=== PATIENT | female | born 1935 | race Caucasian/White ===

== ENCOUNTER → 2017-06-08 | Outpatient (CLI) | payer MEDICARE, OTHER ==
--- NOTE | 2017-06-08 10:43 | Diagnostic Imaging Report ---
PROCEDURE: MRI lumbar spine. TECHNIQUE: Multiplanar, multisequence MRI of the lumbar spine was performed without contrast. INDICATION: Back pain, bilateral hip pain greater right, recently worsening in severity. COMPARISON: Exam compared with prior dated 05/30/2012. FINDINGS: Since the previous exam, posterior fusion with left unilateral pedicular screws and vertical marta at the L5-S1 level have been placed. Anterolisthesis of L5 with respect to S1 measures about 1 cm. There is some signal void artifacts adjacent to the facets which may reflect postoperative instrumentation. The L5-S1 endplates are somewhat irregular. There does appear to be an interbody device. Incorporation could not be confirmed. At the malaligned L5-S1 level, there are severe right and at least moderate left neural foraminal stenoses. Degenerative changes to the discs, endplates and facets at the L2-L3 level showed no change from the previous exam and result in a mild degree of canal and mild left greater than right neural foraminal stenoses. The remaining levels reveal no additional stenoses. No marrow edema, no acute bony abnormality and no fluid collection. IMPRESSION: 1. Interval posterior and interbody L5-S1 instrumentation with decreased disc space development of endplate irregularity and increased anterolisthesis. Changes and malalignment result in severe biforaminal stenosis. Consider CT as further evaluation as pseudoarthrosis at this level could not be excluded and at least some of the findings suggest that outcome. 2. Remaining findings unchanged from previous. Dictated by: Dictated on workstation # [id number]
== END ==
LOC: RAD 08:28
PROVIDERS: ATTEND Orthopaedic Surgery Orthopaedic Trauma
DX: M48.061 Spinal stenosis, lumbar region without neurogenic claudication (principal); M43.16 Spondylolisthesis, lumbar region; Z98.1 Arthrodesis status
CPT/HCPCS: 72148

== ENCOUNTER 2017-07-12 11:06 | Outpatient (RCR) | payer MEDICARE, OTHER | END 2017-09-10 | disposition home or self-care (01) | PROVIDERS: ATTEND Orthopaedic Surgery Orthopaedic Trauma | DX: M48.061 Spinal stenosis, lumbar region without neurogenic claudication (principal); Z98.1 Arthrodesis status ==

== ENCOUNTER 2017-11-06 07:09 | Day surgery (SDC) | payer MEDICARE, OTHER ==
[~2017-11-06] VITALS: Ht 162.6 cm; Wt 109.8 kg
[2017-11-06] VITALS (10 sets, daily range): BP systolic 106–140; BP diastolic 67–101
--- OUTSIDE RECORDS SUMMARY | 2017-11-06 07:14 | XMS REPORT | Clinical Summary ---
Author Author User, CARLOS Organization [facility] [place] Address Unknown Phone Unavailable Allergies, Adverse Reactions, Alerts Allergy Name Reaction Description Start Date Severity Status Provider ALEX Dizzness Critical Active Ling Benitez Conditions or Problems Problem Name Problem Code Onset Date Status Entry Date Provider Comment Standard Description Annotate HYPERTENSION, BENIGN ESSENTIAL, UNCONTROLLED 401.1 Active Ling Benitez Benign essential hypertension OBESITY 278.00 Resolved Ling Benitez Obesity, unspecified DEEP VENOUS THROMBOPHLEBITIS, RIGHT LEG, HX OF V12.52 Resolved Ling Benitez Personal history of thrombophlebitis HYPERCHOLESTEROLEMIA 272.0 Active Ling Benitez Pure hypercholesterolemia SEBACEOUS CYST 706.2 Resolved Ling Benitez Sebaceous cyst right back of neck SKIN LESIONS, MULTIPLE 709.9 Resolved Ling Benitez Unspecified disorder of skin and subcutaneous tissue SKIN LESION 709.9 Resolved iLng Benitez Unspecified disorder of skin and subcutaneous tissue ACNE VULGARIS, FACIAL 706.1 Resolved Ling Benitez Other acne WELL WOMAN V70.0 Resolved Ling Benitez Routine general medical examination at a health care facility ACNE ROSACEA 695.3 Resolved Ling Benitez Rosacea CARCINOMA, BASAL CELL, SKIN 232.9 Resolved Ling Benitez Carcinoma in situ of skin, site unspecified ACTINIC KERATOSIS 702.0 Resolved Ling Benitez Actinic keratosis NEOPLASM, SKIN 239.2 Resolved Ling Benitez Neoplasm of unspecified nature of bone, soft tissue, and skin BACK PAIN 724.5 Resolved Ling Benitez Backache, unspecified SPINAL STENOSIS, LUMBAR 724.02 Resolved Ling Benitez Spinal stenosis of lumbar region without neurogenic claudication NEOPLASM, SKIN, UNCERTAIN BEHAVIOR 238.2 Resolved Ling Benitez Neoplasm of uncertain behavior of skin ABSCESS, SKIN 682.9 Resolved Ling Benitez Cellulitis and abscess of unspecified sites RECTAL POLYPS 569.0 Active Ling Benitez Anal and rectal polyp SCREENING MAMMOGRAM NEC V76.12 Resolved Ling Benitez Other screening mammogram SCREENING FOR OSTEOPOROSIS V82.81 Resolved Ling Benitez Screening for osteoporosis HERPES ZOSTER, UNCOMPLICATED 053.9 Resolved Ling Benitez Herpes zoster without mention of complication HIP PAIN 719.45 Resolved Ling Benitez Pain in joint involving pelvic region and thigh right RENAL INSUFFICIENCY 593.9 Active Ling Benitez Unspecified disorder of kidney and ureter URI 465.9 Resolved Ling Benitez Acute upper respiratory infections of unspecified site VACCINE AGAINST STREPTOCOCCUS PNEUMONIAE V03.82 Resolved Ling Benitez Need for prophylactic vaccination against Streptococcus pneumoniae [pneumococcus] OSTEOPENIA 733.90 Resolved Ling Benitez Disorder of bone and cartilage, unspecified HYPERGLYCEMIA, MILD 790.6 Active Ling Benitez Other abnormal blood chemistry GOUT 274.9 Active Ling Benitez Gout, unspecified BRONCHITIS 490 Resolved Ling Benitez Bronchitis, not specified as acute or chronic COUMADIN THERAPY V58.61 Inactive Ling Benitez Long-term (current) use of anticoagulants PHLEBITIS, SUPERFICIAL LEG VEINS 451.0 Resolved Ling Benitez Phlebitis and thrombophlebitis of superficial vessels of lower extremities VARICOSE VEINS, LOWER EXTREMITIES 454.9 Resolved Ling Benitez Asymptomatic varicose veins LEG PAIN, LEFT 729.5 Resolved Ling Benitez Pain in limb POPLITEAL CYST, LEFT 727.51 Resolved Ling Benitez Synovial cyst of popliteal space URTICARIA, ACUTE 708.9 Resolved Ling Benitez Unspecified urticaria PNEUMONIA 486 Resolved Ling Benitez Pneumonia, organism unspecified DEHYDRATION 276.51 Resolved Ling Benitez Dehydration BREAST MASS, LEFT 611.72 Resolved Ling Benitez Lump or mass in breast BREAST MASS, RIGHT 611.72 Resolved Ling Benitez Lump or mass in breast COUGH 786.2 Resolved Ling Benitez Cough SCIATICA/HERNIATED DISC 722.10 Resolved Ling Benitez Displacement of lumbar intervertebral disc without myelopathy ABNORMAL MAMMOGRAM 793.80 Active Elly Nuñez Abnormal mammogram, unspecified EDEMA LEG 782.3 Active Ling Benitez Edema LYMPHEDEMA, SEVERE 457.1 Active Ling Benitez Other lymphedema CELLULITIS 682.9 Active Ling Benitez Cellulitis and abscess of unspecified sites Medication List Medication Instructions Start Date Stop Date Generic Name NDC Status Provider Patient Instruction LAMISIL 250 MG TAB 1 PO daily TERBINAFINE HCL 14299270796 No Longer Active Ling Benitez KEFLEX 500 MG CAP 1 PO TID for 7 days CEPHALEXIN 62890367599 No Longer Active Ling Benitez POTASSIUM CHLORIDE ER 10 MEQ CR-CAPS 1 PO DAILY POTASSIUM CHLORIDE 74832093756 Active Elly Nuñez [facility] MELATONIN 5 MG TABS 1 po QHS MELATONIN 35562130015 Active Ling Benitez FISH OIL 1000 MG CAPS 1 PO daily OMEGA-3 FATTY ACIDS 08735342828 No Longer Active Ling Benitez ALLOPURINOL 100 MG TABS 1 PO Daily to prevent gout. ALLOPURINOL 82806296525 Active Elly Nuñez OXYCODONE HCL 10 MG TABS 1-2 PO Q4hrs prn OXYCODONE HCL 03919317011 No Longer Active Lingkan Benitez ALEVE 220 MG TAB 2 po qam NAPROXEN SODIUM 48349810034 Active Ling Benitez VALIUM 2 MG TAB 1 PO 1 hr before MRI and may repeat DIAZEPAM 15690039894 No Longer Active Ling Benitez PREDNISONE 20 MG TAB 3 pills daily at once for 2 days, 2 pills daily at once for 2 days, 1 once daily for 2 days PREDNISONE 61313194805 No Longer Active Lingkan Benitez ROBITUSSIN A-C 10-100 MG/5ML SYRUP 1 teaspoon PO Q 4-6 hr prn ROBITUSSIN A-C 10-100 MG/5ML SYRUP No Longer Active Lingkan Beintez TESSALON 200 MG CAPS 1 PO TID prn cough BENZONATATE 54646010761 No Longer Active Lingkan Benitez BIAXIN 500 MG TAB 1 PO BID CLARITHROMYCIN 02589629624 No Longer Active Lingkan Benitez ZOSTAVAX 60515 UNT/0.65ML SOLR 1 injection once to prevent Shingles ZOSTER VACCINE LIVE 50377017972 No Longer Active Lingkan Benitez LASIX 20 MG TAB 1 PO daily FUROSEMIDE 87095863171 Active Elly NICHOLS'Grabiel NASAL SPRAY (DEXAMETHASONE, GENTAMICIN, SALINE) 2 puffs each nostril TID for [address] SEGURA NASAL SPRAY ( DEXAMETHASONE, GENTAMICIN, SALINE) No Longer Active Ling Benitez CHERATUSSIN AC 100-10 MG/5ML SYRP 1 tsp PO Q4hrs prn GUAIFENESIN-CODEINE 50061462993 No Longer Active Lingkan Benitez CIPRO 500 MG TAB 1 PO BID for 7 days CIPROFLOXACIN HCL 55445412597 No Longer Active Ling Benitez VITAMIN D 1000 UNIT TABS 1 PO Daily CHOLECALCIFEROL 11450154256 Active Ling Benitez LOVENOX 40 MG/0.4ML SOLN 1 injection daily to prevent blood clots ENOXAPARIN SODIUM 18028342741 No Longer Active Ling Benitez NORITATE 1 % CREA apply BID METRONIDAZOLE (TOPICAL) 39660044261 No Longer Active Ling Benitez FLEXERIL 10 MG TAB 1 PO QHS CYCLOBENZAPRINE HCL 24407558023 No Longer Active Ling Benitez COUMADIN 3 MG TAB Sig: Take 1 PO QD WARFARIN SODIUM 87028512249 No Longer Active Lingkan Benitez DYAZIDE 37.5-25 MG CAP 1 PO daily (on hold 12/16/07 to evaluate gout recurrance ) TRIAMTERENE-HCTZ 34829688133 No Longer Active Ling Benitez PREDNISONE 20 MG TAB 3 pills daily at once for 2 days, 2 pills daily at once for 2 days, 1 PO daily for 2 days PREDNISONE 62526054440 No Longer Active Ling Benitez COUMADIN 5 MG TABS 1 po on odd days WARFARIN SODIUM 04314604332 No Longer Active Ling Benitez CEPHALEXIN 500 MG CAPS 1 po QID x 7 days CEPHALEXIN 28892763239 No Longer Active Ling Benitez ROBITUSSIN A-C 10-100 MG/5ML SYRUP 1 teaspoon PO Q 4-6 hr prn ROBITUSSIN A-C 10-100 MG/5ML SYRUP 68155497860 No Longer Active Ling Benitez DOXYCYCLINE HYCLATE 100 MG CAP 1 po BID DOXYCYCLINE HYCLATE 36653734202 No Longer Active Ling eBnitez PREDNISONE 20 MG TABS 3 PO for 1 day, 2 PO for 2 days and 1 PO for 3 days. PREDNISONE 62133137032 No Longer Active Ling Benitez COLCHICINE 0.6 MG TAB 1 PO Q3hrs prn gout pain. Maximum pills in one day is 8 pills. COLCHICINE Active Riley Rodrigues PREDNISONE 20 MG TAB 3 PO daily for 1 day, then 2 PO daily for 2 days then 1 Po daily for 3 days PREDNISONE 08009804756 No Longer Active Ling Benitez VITAMIN D CAPS (ERGOCALCIFEROL CAPS) 400MG 1 PO daily VITAMIN D CAPS (ERGOCALCIFEROL CAPS) 400MG No Longer Active Ling Benitez PRAVASTATIN SODIUM 40 MG TABS 1 po daily for cholesterol. PRAVASTATIN SODIUM 08773196163 Active Elly Nuñez ZOCOR 40 MG TABS 1 PO daily SIMVASTATIN 11238803475 No Longer Active Ling Benitez BENICAR 20 MG TABS 1 PO QD OLMESARTAN MEDOXOMIL 90121607255 No Longer Active Lingkan Benitez LOTENSIN 40 MG TABS 1 PO daily BENAZEPRIL HCL 95330478588 Active Elly Nuñez NORVASC 10 MG TAB 1 PO QD AMLODIPINE BESYLATE 93138939391 Active Elly Nuñez ROBITUSSIN A-C 10-100 MG/5ML SYRUP 5cc PO Q 4-6 hr prn ROBITUSSIN A-C 10-100 MG/5ML SYRUP 98628417694 No Longer Active Lingkan Benitez LORTAB 5 5-500 MG TABS 1 to 2 PO Q6hrs prn ACETAMINOPHEN- HYDROCODONE 52988615962 No Longer Active Lingkan Benitez ACYCLOVIR 800 MG TABS 1 PO five times a day for 7 days ACYCLOVIR 94590593020 No Longer Active Lingkan Benitez CALTRATE PLUS 600-200 MG-UNIT TABS 1 PO BID OTC CALCIUM CARBONATE-VIT D-MIN 04951406291 Active Lingkan Benitez VYTORIN 10-20 MG TABS 1 PO QAM EZETIMIBE-SIMVASTATIN 18223341523 No Longer Active Elly Nuñez ALEVE 220 MG TABS 2 PO BID prn back pain NAPROXEN SODIUM 03361154520 No Longer Active Lingkan Benitez MICARDIS 80 MG TABS 1 PO daily TELMISARTAN 24944954591 No Longer Active Lingkan Benitez LORTAB 5 5-500 MG TABS 1 q6hrs prn pain HYDROCODONE- ACETAMINOPHEN 15423134119 No Longer Active Lingkan Benitez LOTREL 10-20 MG CAPS 1 po qd AMLODIPINE BESY-BENAZEPRIL HCL 73787296044 No Longer Active Elly Nuñez RETIN-A 0.025 % CREAM apply QD as directed to face TRETINOIN 78142201590 No Longer Active Ling Benitez MAVIK 2 MG TABS 1 po daily TRANDOLAPRIL 29574658475 No Longer Active Ling Benitez CALCIUM 600 MG TABS 1 PO QD OTC CALCIUM 26981708039 No Longer Active Ling Benitez MULTIVITAMINS TABS 1 po daily MULTIPLE VITAMIN 11819883165 Active Ling Benitez ASPIRIN 81 MG TABS 1 po daily ASPIRIN 35270761721 Active Ling Benitez ZOCOR 20 MG TABS 1 po daily SIMVASTATIN 94412820894 No Longer Active Ling Benitez ATENOLOL 100 MG TABS 1 po daily ATENOLOL 54763024435 Active Elly Nuñez HYDROCHLOROTHIAZIDE 50 MG TABS 1 po daily HYDROCHLOROTHIAZIDE 84188791961 No Longer Active Ling Benitez Immunizations Vaccine Administration Date Value Standard Description Influenza vaccine given done influenza virus vaccine, unspecified formulation Influenza vaccine given done influenza virus vaccine, unspecified formulation Influenza vaccine given Done influenza virus vaccine, unspecified formulation Influenza vaccine given Done influenza virus vaccine, unspecified formulation Vital Signs Date Name Value Unit Range Description blood pressure, diastolic - 8462-4 78 mm[Hg] BP shaw blood pressure, systolic - 8480-6 138 mm[Hg] BP sys pulse rate E&M - 8867-4 56 /min Heart rate respiratory rate E&M - 9279-1 14 /min Resp rate temperature E&M 98.6 [degF] Body temperature weight E&M - 3141-9 230 [lb_av] Weight Measured blood pressure, diastolic - 8462-4 70 mm[Hg] BP shaw blood pressure, systolic - 8480-6 120 mm[Hg] BP sys pulse rate E&M - 8867-4 52 /min Heart rate respiratory rate E&M - 9279-1 14 /min Resp rate temperature E&M 98.6 [degF] Body temperature weight E&M - 3141-9 236 [lb_av] Weight Measured blood pressure, diastolic - 8462-4 80 mm[Hg] BP shaw blood pressure, systolic - 8480-6 125 mm[Hg] BP sys pulse rate E&M - 8867-4 76 /min Heart rate respiratory rate E&M - 9279-1 14 /min Resp rate temperature E&M 98.6 [degF] Body temperature weight E&M - 3141-9 230 [lb_av] Weight Measured Diagnostic Results Date Name Value Unit Range Description Clinical Lists Update: CBC,CMP,FLP,TSH,HgA1c - Chemistry alanine aminotransferase (SGPT), serum 35 U/L carbon dioxide, venous blood 24.0 mmol/L Estimated Glomerular Filtration Rate (calc) 60 mL/min/1.73m2 creatinine, serum 1.0 mg/dL HDL cholesterol, serum 45.0 mg/dL triglyceride, serum, fasting 159 mg/dL hemoglobin A1C, blood, as % of total hemoglobin 5.9 % protein, total, serum 7.2 g/dL albumin, serum 4.2 g/dL alkaline phosphatase, serum 71 U/L aspartate aminotransferase (SGOT), serum 38 U/L urea nitrogen, blood 25 mg/dL anion gap, serum 13 calcium, serum 9.4 mg/dL bilirubin, serum, total 0.4 mg/dL chloride, serum 105 mmol/L cholesterol/HDL ratio, serum, percent 3.4 cholesterol, serum 155 mg/dL sodium, serum 138 mmol/L potassium, serum 4.2 mmol/L glucose, plasma fasting 103 mg/dL LDL cholesterol, serum 78 mg/dL thyroid stimulating hormone, serum 3.55 u[iU]/mL Clinical Lists Update: CBC,CMP,FLP,TSH,HgA1c - Hematology hematocrit, blood 44 % red blood cell distribution width 14.6 % mean corpuscular volume, RBC 101 fL leukocyte count, blood 7.3 10*3/mm3 erythrocyte (RBC) count 4.35 10*6/mm3 platelet count 178 10*3/mm3 hemoglobin, blood 13.6 g/dL Clinical Lists Update: CMP,Chol,Trig,HgA1c - Chemistry albumin, serum 4.0 g/dL alkaline phosphatase, serum 81 U/L urea nitrogen, blood 22 mg/dL calcium, serum 9.6 mg/dL chloride, serum 104 mmol/L cholesterol, serum 172 mg/dL carbon dioxide, venous blood 24.0 mmol/L creatinine, serum 1.1 mg/dL hemoglobin A1C, blood, as % of total hemoglobin 5.9 % potassium, serum 4.2 mmol/L protein, total, serum 7.2 g/dL aspartate aminotransferase (SGOT), serum 32 U/L alanine aminotransferase (SGPT), serum 31 U/L bilirubin, serum, total 0.4 mg/dL triglyceride, serum, fasting 158 mg/dL sodium, serum 136 mmol/L anion gap, serum 12 glucose, plasma fasting 102 mg/dL Estimated Glomerular Filtration Rate (calc) 52 mL/min/1.73m2 Encounters Code Encounter Date Provider Facility CPT-90567 Ofc Vst, Est Level III 19:27:59 BRII Benitez DO, FAC CPT-54119 Ofc Vst, Est Level IV 14:39:56 CDT Ling Jane Benitez [facility] CPT-28151 Ofc Vst, Est Level III 16:46:27 CDT Ling Jane Spain Emmanuel, DO, FACP CPT-15925 Ofc Vst, Est Level III 19:04:28 CDT Ling Jane Benitez [facility] CPT-01468 Ofc Vst, Est Level IV 16:45:14 CDT Ling Jane Benitez [facility] CPT-66258 Ofc Vst, Est Level III 13:10:29 [employer] Ling Jane Spain Emmanuel, DO, FACP CPT-95904 Ofc Vst, Est Level III 15:45:45 [employer] Ling Spain Emmanuel, DO, FACP CPT-40080 Ofc Vst, Est Level IV 13:57:24 CDT Ling Jane Benitez [facility] CPT-64173 Ofc Vst, Est Level III 14:31:03 CDT Ling Jane Benitez [facility] CPT-24585 Ofc Vst, Est Level IV 15:47:47 [employer] Ling Benitez [facility] CPT-50186 Ofc Vst, Est Level IV 11:13:35 CDT Ling Jane Spain Emmanuel, DO, FACP CPT-90067 Ofc Vst, Est Level IV 10:50:22 CDT Ling Jane Spain Emmanuel, DO, FACP CPT-45292 Ofc Vst, Est Level IV 10:08:22 CDT Ling Jane Dubon S Emmanuel, DO, FACP CPT-48048 Ofc Vst, Est Level IV 10:44:48 CDT Ling Jane Spain Emmanuel, DO, FACP CPT-19632 Ofc Vst, Est Level IV 13:34:31 [employer] Ling Jane Spain Benitez, DO, FACP CPT-16586 Ofc Vst, Est Level IV 09:49:46 [employer] Ling Jane Spain Benitez, DO, FACP CPT-54257 Ofc Vst, Est Level V 10:39:18 [employer] Ling Spain Benitez, DO, FACP CPT-90281 Ofc Vst, Est Level IV 09:31:27 CDT Ling Jane Spain Emmanuel, DO, FACP CPT-60568 Ofc Vst, Est Level III 11:44:08 CDT Ling Jane Spain Benitez, DO, FACP CPT-82202 Ofc Vst, Est Level V 11:29:25 CDT Ling Jane Spain Emmanuel, DO, FACP CPT-26178 Ofc Vst, Est Level V 09:49:50 CDT Ling Jane Spain Emmanuel, DO, FACP CPT-84602 Ofc Vst, Est Level IV 09:50:55 CDT Ling Jane Spain Benitez, DO, FACP CPT-37227 Ofc Vst, Est Level V 14:50:03 CDT Lingkan Spain Emmanuel, DO, FACP CPT-22244 Ofc Vst, Est Level III 10:16:01 [employer] Ling Spain Emmanuel, DO, FACP CPT-87019 Ofc Vst, Est Level V 09:27:45 [employer] Ling Jane Spain Benitez, DO, FACP CPT-78526 Ofc Vst, Est Level IV 16:57:02 CDT Ling Jane Dubon S Emmanuel, DO, FACP CPT-64303 Ofc Vst, Est Level IV 16:14:45 CDT Ling Jane Spain Emmanuel, DO, FACP CPT-41534 Ofc Vst, Est Level III 12:28:55 CDT Ling Jane Spain Benitez, DO, FACP CPT-83407 Ofc Vst, Est Level IV 16:33:15 CDT Ling Jane Spain Benitez, DO, FACP CPT-89601 Ofc Vst, Est Level IV 09:14:59 CDT Ling Jane Guardadoner, DO, FACP CPT-55585 Ofc Vst, Est Level IV 11:33:57 CDT Ling Jane Spain Benitez, DO, FACP CPT-25206 Ofc Vst, Est Level IV 11:47:04 CDT Lingkan Spain Benitez, DO, FACP CPT-20948 Ofc Vst, Est Level IV 14:26:17 CDT Ling Jane Benitez, DO, FACP CPT-92813 Ofc Vst, Est Level V 15:07:54 [employer] Ling Spain Benitez, DO, FACP CPT-65476 Ofc Vst, Est Level III 15:05:00 [employer] Ling Spain Benitez, DO, FACP CPT-24411 Ofc Vst, Est Level III 14:54:15 CDT Lingkan Spain Benitez, DO, FACP CPT-54818 Ofc Vst, Est Level IV 11:03:28 CDT Ling Jane Spain Benitez, DO, FACP CPT-21991 Ofc Vst, Est Level IV 11:23:17 CDT Ling Spain Benitez, DO, FACP CPT-95450 Ofc Vst, Est Level IV 13:38:42 CDT Ling Jane Benitez [facility] CPT-11495 Ofc Vst, Est Level IV 11:06:18 [employer] Ling Benitez [facility] [place] CPT-43038 Ofc Vst, Est Level III 16:02:00 CDT Lingkan Benitez [facility] [place] CPT-86666 Ofc Vst, Est Level III 13:55:34 CDT Ling Benitez [facility] [place] CPT-25951 Ofc Vst, Est Level IV 10:57:19 CDT Ling Jane Benitez [facility] [place] CPT-01213 Ofc Vst, Est Level IV 10:36:33 [employer] Ling Benitez [facility] [place] CPT-44319 Ofc Vst, Est Level IV 10:32:48 [employer] iLng Benitez [facility] [place] CPT-48134 Ofc Vst, Est Level IV 15:26:49 [employer] Ling Benitez [facility] [place] CPT-02356 Ofc Vst, Est Level IV 11:23:15 CDT Ling Jane Benitez [facility] [place] CPT-51090 Ofc Vst, Est Level IV 10:16:10 CDT Lingkan Benitez [facility] [place] CPT-51604 Ofc Vst, Est Level IV 18:44:39 CDT Ling Benitez [facility] [place] CPT-14044 Ofc Vst, Est Level III 13:15:02 CDT Lingkan Benitez [facility] [place] CPT-31634 Ofc Vst, Est Level IV 12:26:03 [employer] Ling Benitez [facility] [place] CPT-87067 Ofc Vst, Est Level IV 18:06:54 [employer] Ling Benitez [facility] [place] CPT-22818 Ofc Vst, Est Level III 12:46:29 CDT Ling Benitez [facility] [place] CPT-53211 Ofc Vst, Est Level IV 17:21:21 CDT Ling Jane Benitez [facility] [place] CPT-83044 Ofc Vst, Est Level III 15:16:44 CDT Ling Benitez [facility] [place] CPT-15011 Ofc Vst, Est Level II 11:42:02 CDT Ling Benitez [facility] [place] CPT-73477 Ofc Vst, Est Level III 12:09:24 [employer] Ling Benitez [facility] [place] CPT-50838 Ofc Vst, New Level III 13:59:43 [employer] Ling Benitez [facility] [place] Procedures Code Procedure Name Date Entry Date Standard Description CPT-G0439 Medicare Annual Wellness Visit 14:32:15 [employer] CPT-G8443 E-Prescribing Medication Sent 20:53:37 [employer] CPT-G0439 Medicare Annual Wellness Visit 20:53:37 [employer] CPT-G8445 E-Prescribing Not sent due to no medication given 16:46: 27 CDT CPT-G8446 E-Prescribing not done due to controlled substance 19:04 :28 CDT CPT-G8446 E-Prescribing not done due to controlled substance 16:45 :14 CDT CPT-G8446 E-Prescribing not done due to controlled substance 13:10 :29 [employer] CPT-G8446 E-Prescribing not done due to controlled substance 15:45 :45 [employer] CPT-G8443 E-Prescribing Medication Sent 16:25:14 [employer] CPT-G0438 Medicare Annual Wellness Visit Initial 16:25:14 [employer] CPT-8446 E-Prescribing not done due to controlled substance 11:29: 25 CDT CPT-8445 E-Prescribing Not sent due to no medication given 09:50: 55 CDT CPT-8446 E-Prescribing not done due to controlled substance 14:50: 03 CDT CPT-24044 Handling of specimen from office to lab 11:13:16 [employer] CPT-83985 Excision of Malignant lesion 2.1-3.0 cm 11:13:16 [employer] CPT-62278 Injection 12:28:55 CDT CPT-12150 Excision of Benign Lesion 1.1-2.0 cm 14:54:15 CDT 02/25 CPT-46601 Injection, Pneumovax 11:03:28 CDT CPT-55234 Incision & Drainage, simple 12:52:53 [employer] CPT-06141 Cryopathy Skin 18:44:39 CDT CPT-90564 Biopsy, skin/subcut/mucous membrane; sngl lsn 10:32:32 CDT CPT-27315 Cryopathy Skin 17:21:21 CDT CPT-36871 Wound Repair, Superficial 11:42:03 CDT CPT-76854 Preventive, Est, (65+) 11:11:45 [employer]
[2017-11-06] MEDS ORDERED: HEParin (CATH LAB) 2,000 ML IV ONE (07:15)
[2017-11-06] MEDS ORDERED: NS IV 1000 ML 1,000 ML ONE ×2 (07:15→10:31)
[2017-11-06] MEDS ORDERED: LIDOCAINE 1% INJ 20 ML 20 ML VIAL ONE (07:15)
--- OUTSIDE RECORDS SUMMARY | 2017-11-06 07:15 | XMS REPORT | Clinical Summary ---
Author Author User, CARLOS Organization [facility] Address Unknown Phone Unavailable Allergies, Adverse Reactions, [...] and subcutaneous tissue SKIN LESION 709.9 Resolved Ling Benitez Unspecified disorder of [...] MG TAB 1 PO daily TERBINAFINE HCL 10451239002 No Longer Active Ling Benitez KEFLEX 500 MG CAP 1 PO TID for 7 days CEPHALEXIN 75128837187 No Longer Active Ling Benitez POTASSIUM CHLORIDE ER 10 MEQ CR-CAPS 1 PO DAILY POTASSIUM CHLORIDE 74841608332 Active Elly Nuñez [facility] MELATONIN 5 MG TABS 1 po QHS MELATONIN 05924465332 Active Ling Benitez FISH OIL 1000 MG CAPS 1 PO daily OMEGA-3 FATTY ACIDS 21517260647 No Longer Active Ling Benitez ALLOPURINOL 100 MG TABS 1 PO Daily to prevent gout. ALLOPURINOL 76527120135 Active Elly Nuñez OXYCODONE HCL 10 MG TABS 1-2 PO Q4hrs prn OXYCODONE HCL 27992056185 No Longer Active Lingkan Benitez ALEVE 220 MG TAB 2 po qam NAPROXEN SODIUM 67060691837 Active Ling Benitez VALIUM 2 MG TAB 1 PO 1 hr before MRI and may repeat DIAZEPAM 39503040048 No Longer Active Ling Benitez PREDNISONE 20 MG TAB 3 pills daily at once for 2 days, 2 pills daily at once for 2 days, 1 once daily for 2 days PREDNISONE 74243625212 No Longer Active Lingkan Benitez ROBITUSSIN A-C 10-100 MG/5ML SYRUP 1 teaspoon PO Q 4-6 hr prn ROBITUSSIN A-C 10-100 MG/5ML SYRUP No Longer Active Lingkan Benitez TESSALON 200 MG CAPS 1 PO TID prn cough BENZONATATE 13404815410 No Longer Active Lingkan Benitez BIAXIN 500 MG TAB 1 PO BID CLARITHROMYCIN 15810442525 No Longer Active Lingkan Benitez ZOSTAVAX 84418 UNT/0.65ML SOLR 1 injection once to prevent Shingles ZOSTER VACCINE LIVE 80867383923 No Longer Active Lingkan Benitez LASIX 20 MG TAB 1 PO daily FUROSEMIDE 42249399509 Active Elly NICHOLS'Grabiel NASAL SPRAY (DEXAMETHASONE, GENTAMICIN, SALINE) 2 puffs each nostril TID for [address] SEGURA NASAL SPRAY ( DEXAMETHASONE, GENTAMICIN, SALINE) No Longer Active Ling Benitez CHERATUSSIN AC 100-10 MG/5ML SYRP 1 tsp PO Q4hrs prn GUAIFENESIN-CODEINE 19748129889 No Longer Active Lingkan Benitez CIPRO 500 MG TAB 1 PO BID for 7 days CIPROFLOXACIN HCL 34181775007 No Longer Active Ling Benitez VITAMIN D 1000 UNIT TABS 1 PO Daily CHOLECALCIFEROL 72295471529 Active Ling Benitez LOVENOX 40 MG/0.4ML SOLN 1 injection daily to prevent blood clots ENOXAPARIN SODIUM 74945647789 No Longer Active Ling Benitez NORITATE 1 % CREA apply BID METRONIDAZOLE (TOPICAL) 00548648175 No Longer Active Lign Benitez FLEXERIL 10 MG TAB 1 PO QHS CYCLOBENZAPRINE HCL 19411664855 No Longer Active Ling Benitez COUMADIN 3 MG TAB Sig: Take 1 PO QD WARFARIN SODIUM 56047725843 No Longer Active Lingkan Benitez DYAZIDE 37.5-25 MG CAP 1 PO daily (on hold 12/16/07 to evaluate gout recurrance ) TRIAMTERENE-HCTZ 86574295026 No Longer Active Ling Benitez PREDNISONE 20 MG TAB 3 pills daily at once for 2 days, 2 pills daily at once for 2 days, 1 PO daily for 2 days PREDNISONE 60817884551 No Longer Active Ling Benitez COUMADIN 5 MG TABS 1 po on odd days WARFARIN SODIUM 90349140370 No Longer Active Ling Benitez CEPHALEXIN 500 MG CAPS 1 po QID x 7 days CEPHALEXIN 26250863637 No Longer Active Ling Benitez ROBITUSSIN A-C 10-100 MG/5ML SYRUP 1 teaspoon PO Q 4-6 hr prn ROBITUSSIN A-C 10-100 MG/5ML SYRUP 63581486939 No Longer Active Ling Benitez DOXYCYCLINE HYCLATE 100 MG CAP 1 po BID DOXYCYCLINE HYCLATE 43548050437 No Longer Active Ling Benitez PREDNISONE 20 MG TABS 3 PO for 1 day, 2 PO for 2 days and 1 PO for 3 days. PREDNISONE 14056288897 No Longer Active Ling Benitez COLCHICINE 0.6 MG TAB 1 PO Q3hrs prn gout pain. Maximum pills in one day is 8 pills. COLCHICINE Active Riley Rodrigues PREDNISONE 20 MG TAB 3 PO daily for 1 day, then 2 PO daily for 2 days then 1 Po daily for 3 days PREDNISONE 06063377361 No Longer Active Ling Benitez VITAMIN D CAPS (ERGOCALCIFEROL CAPS) 400MG 1 PO daily VITAMIN D CAPS (ERGOCALCIFEROL CAPS) 400MG No Longer Active Ling Benitez PRAVASTATIN SODIUM 40 MG TABS 1 po daily for cholesterol. PRAVASTATIN SODIUM 21860345548 Active Elly Nuñez ZOCOR 40 MG TABS 1 PO daily SIMVASTATIN 30945396315 No Longer Active Ling Benitez BENICAR 20 MG TABS 1 PO QD OLMESARTAN MEDOXOMIL 97039919795 No Longer Active Lingkan Benitez LOTENSIN 40 MG TABS 1 PO daily BENAZEPRIL HCL 54922116278 Active Elly Nuñez NORVASC 10 MG TAB 1 PO QD AMLODIPINE BESYLATE 41150368553 Active Elly Nuñez ROBITUSSIN A-C 10-100 MG/5ML SYRUP 5cc PO Q 4-6 hr prn ROBITUSSIN A-C 10-100 MG/5ML SYRUP 92511522555 No Longer Active Lingkan Benitez LORTAB 5 5-500 MG TABS 1 to 2 PO Q6hrs prn ACETAMINOPHEN- HYDROCODONE 22842219204 No Longer Active Lingkan Benitez ACYCLOVIR 800 MG TABS 1 PO five times a day for 7 days ACYCLOVIR 60271027679 No Longer Active Lingkan Benitez CALTRATE PLUS 600-200 MG-UNIT TABS 1 PO BID OTC CALCIUM CARBONATE-VIT D-MIN 24479077111 Active Lingkan Benitez VYTORIN 10-20 MG TABS 1 PO QAM EZETIMIBE-SIMVASTATIN 17541950394 No Longer Active Elly Nuñez ALEVE 220 MG TABS 2 PO BID prn back pain NAPROXEN SODIUM 59284653057 No Longer Active Lingkan Benitez MICARDIS 80 MG TABS 1 PO daily TELMISARTAN 07421058370 No Longer Active Lingkan Benitez LORTAB 5 5-500 MG TABS 1 q6hrs prn pain HYDROCODONE- ACETAMINOPHEN 78215691404 No Longer Active Lingkan Benitez LOTREL 10-20 MG CAPS 1 po qd AMLODIPINE BESY-BENAZEPRIL HCL 21215302867 No Longer Active Elly Nuñez RETIN-A 0.025 % CREAM apply QD as directed to face TRETINOIN 67886591386 No Longer Active Ling Benitez MAVIK 2 MG TABS 1 po daily TRANDOLAPRIL 93028804948 No Longer Active Ling Benitez CALCIUM 600 MG TABS 1 PO QD OTC CALCIUM 49383794469 No Longer Active Ling Benitez MULTIVITAMINS TABS 1 po daily MULTIPLE VITAMIN 89145036775 Active Ling Benitez ASPIRIN 81 MG TABS 1 po daily ASPIRIN 74990932627 Active Ling Benitez ZOCOR 20 MG TABS 1 po daily SIMVASTATIN 52512770273 No Longer Active Ling Benitez ATENOLOL 100 MG TABS 1 po daily ATENOLOL 68302366673 Active Elly Nuñez HYDROCHLOROTHIAZIDE 50 MG TABS 1 po daily HYDROCHLOROTHIAZIDE 59377923179 No Longer Active Ling Benitez Immunizations Vaccine [...] Description Clinical Lists Update: CBC,CMP,FLP,TSH,HgA1c - Chemistry albumin, serum 4.2 g/dL anion gap, serum 13 urea nitrogen, blood 25 mg/dL calcium, serum 9.4 mg/dL chloride, serum 105 mmol/L cholesterol, serum 155 mg/dL carbon dioxide, venous blood 24.0 mmol/L creatinine, serum 1.0 mg/dL HDL cholesterol, serum 45.0 mg/dL hemoglobin A1C, blood, as % of total hemoglobin 5.9 % thyroid stimulating hormone, serum 3.55 u[iU]/mL LDL cholesterol, serum 78 mg/dL potassium, serum 4.2 mmol/L protein, total, serum 7.2 g/dL aspartate aminotransferase (SGOT), serum 38 U/L alanine aminotransferase (SGPT), serum 35 U/L bilirubin, serum, total 0.4 mg/dL triglyceride, serum, fasting 159 mg/dL sodium, serum 138 mmol/L Estimated Glomerular Filtration Rate (calc) 60 mL/min/1.73m2 glucose, plasma fasting 103 mg/dL cholesterol/HDL ratio, serum, percent 3.4 alkaline phosphatase, serum 71 U/L Clinical Lists Update: CBC,CMP,FLP,TSH,HgA1c - Hematology hemoglobin, blood 13.6 g/dL hematocrit, blood 44 % platelet count 178 10*3/mm3 erythrocyte (RBC) count 4.35 10*6/mm3 leukocyte count, blood 7.3 10*3/mm3 mean corpuscular volume, RBC 101 fL red blood cell distribution width 14.6 % Clinical Lists Update: CMP,Chol,Trig,HgA1c - Chemistry creatinine, serum 1.1 mg/dL albumin, serum 4.0 g/dL potassium, serum 4.2 mmol/L protein, total, serum 7.2 g/dL aspartate aminotransferase (SGOT), serum 32 U/L alanine aminotransferase (SGPT), serum 31 U/L bilirubin, serum, total 0.4 mg/dL triglyceride, serum, fasting 158 mg/dL sodium, serum 136 mmol/L anion gap, serum 12 glucose, plasma fasting 102 mg/dL Estimated Glomerular Filtration Rate (calc) 52 mL/min/1.73m2 carbon dioxide, venous blood 24.0 mmol/L cholesterol, serum 172 mg/dL chloride, serum 104 mmol/L calcium, serum 9.6 mg/dL urea nitrogen, blood 22 mg/dL alkaline phosphatase, serum 81 U/L hemoglobin A1C, blood, as % of total hemoglobin 5.9 % Encounters Code Encounter Date Provider Facility CPT-68192 Ofc Vst, Est Level III 19:27:59 BRII Benitez DO, FACP CPT-45886 Ofc Vst, Est Level IV 14:39:56 CDT Ling Jane Benitez [facility] CPT-86283 Ofc Vst, Est Level III 16:46:27 CDT Ling Jane Spain Emmanuel, DO, FACP CPT-43446 Ofc Vst, Est Level III 19:04:28 CDT Ling Jane Benitez [facility] CPT-79779 Ofc Vst, Est Level IV 16:45:14 CDT Ling Jane Benitez [facility] CPT-10725 Ofc Vst, Est Level III 13:10:29 [facility] Ling Jane Spain Emmanuel, DO, FACP CPT-55252 Ofc Vst, Est Level III 15:45:45 [facility] Ling Spain Emmanuel, DO, FACP CPT-60746 Ofc Vst, Est Level IV 13:57:24 CDT Ling Jane Benitez [facility] CPT-88782 Ofc Vst, Est Level III 14:31:03 CDT Ling Jane Benitez [facility] CPT-53797 Ofc Vst, Est Level IV 15:47:47 [facility] [employer] Ling Benitez [facility] CPT-61952 Ofc Vst, Est Level IV 11:13:35 CDT Ling Jane Spain Emmanuel, DO, FACP CPT-81072 Ofc Vst, Est Level IV 10:50:22 CDT Ling Jane Spain Emmanuel, DO, FACP CPT-55303 Ofc Vst, Est Level IV 10:08:22 CDT Ling Jane Dubon S Emmanuel, DO, FACP CPT-98431 Ofc Vst, Est Level IV 10:44:48 CDT Ling Jane Spain Emmanuel, DO, FACP CPT-23552 Ofc Vst, Est Level IV 13:34:31 [employer] Ling Jane Spain Benitez, DO, FACP CPT-48957 Ofc Vst, Est Level IV 09:49:46 [employer] Ling Jane Spain Benitez, DO, FACP CPT-70248 Ofc Vst, Est Level V 10:39:18 [employer] Ling Spain Benitez, DO, FACP CPT-21731 Ofc Vst, Est Level IV 09:31:27 CDT Ling Jane Spain Emmanuel, DO, FACP CPT-95643 Ofc Vst, Est Level III 11:44:08 CDT Ling Jane Spain Benitez, DO, FACP CPT-89451 Ofc Vst, Est Level V 11:29:25 CDT Ling Jane Spain Emmanuel, DO, FACP CPT-20416 Ofc Vst, Est Level V 09:49:50 CDT Ling Jane Spain Emmanuel, DO, FACP CPT-91387 Ofc Vst, Est Level IV 09:50:55 CDT Ling Jane Spain Benitez, DO, FACP CPT-37243 Ofc Vst, Est Level V 14:50:03 CDT Lingkan Spain Emmanuel, DO, FACP CPT-56475 Ofc Vst, Est Level III 10:16:01 [employer] Ling [place] Emmanuel, DO, FACP CPT-72983 Ofc Vst, Est Level V 09:27:45 [employer] Ling Jane Spain Benitez, DO, FACP CPT-65228 Ofc Vst, Est Level IV 16:57:02 CDT Ling Jane Dubon S Emmanuel, DO, FACP CPT-49089 Ofc Vst, Est Level IV 16:14:45 CDT Ling Jane Spain Emmanuel, DO, FACP CPT-26102 Ofc Vst, Est Level III 12:28:55 CDT Ling Jane Spain Benitez, DO, FACP CPT-54274 Ofc Vst, Est Level IV 16:33:15 CDT Ling Jane Spain Benitez, DO, FACP CPT-47528 Ofc Vst, Est Level IV 09:14:59 CDT Ling Jane Guardadoner, DO, FACP CPT-41772 Ofc Vst, Est Level IV 11:33:57 CDT Ling Jane Spain Benitez, DO, FACP CPT-46845 Ofc Vst, Est Level IV 11:47:04 CDT Lingkan Spain Benitez, DO, FACP CPT-15224 Ofc Vst, Est Level IV 14:26:17 CDT Ling Jane Benitez, DO, FACP CPT-47311 Ofc Vst, Est Level V 15:07:54 [employer] Ling Spain Benitez, DO, FACP CPT-08421 Ofc Vst, Est Level III 15:05:00 [employer] Ling Spain Benitez, DO, FACP CPT-38342 Ofc Vst, Est Level III 14:54:15 CDT Lingkan Spain Benitez, DO, FACP CPT-75828 Ofc Vst, Est Level IV 11:03:28 CDT Ling Jane Spain Benitez, DO, FACP CPT-34023 Ofc Vst, Est Level IV 11:23:17 CDT Ling Spain Benitez, DO, FACP CPT-50318 Ofc Vst, Est Level IV 13:38:42 CDT Ling Jane Benitez [facility] CPT-12938 Ofc Vst, Est Level IV 11:06:18 [employer] Ling Benitez [facility] CPT-78450 Ofc Vst, Est Level III 16:02:00 CDT Lingkan Benitez [facility] CPT-43418 Ofc Vst, Est Level III 13:55:34 CDT Ling Benitez [facility] CPT-37335 Ofc Vst, Est Level IV 10:57:19 CDT Ling Jane Benitez [facility] CPT-52740 Ofc Vst, Est Level IV 10:36:33 [employer] Ling Benitez [facility] CPT-02813 Ofc Vst, Est Level IV 10:32:48 [employer] Ling Benitez [facility] CPT-19435 Ofc Vst, Est Level IV 15:26:49 [employer] Ling Benitez [facility] CPT-40347 Ofc Vst, Est Level IV 11:23:15 CDT Ling Jane Benitez [facility] CPT-47493 Ofc Vst, Est Level IV 10:16:10 CDT Lingkan Benitez [facility] CPT-23153 Ofc Vst, Est Level IV 18:44:39 CDT Ling Benitez [facility] CPT-74386 Ofc Vst, Est Level III 13:15:02 CDT Lingkan Benitez [facility] CPT-42434 Ofc Vst, Est Level IV 12:26:03 [employer] Ling Benitez [facility] CPT-47695 Ofc Vst, Est Level IV 18:06:54 [employer] Ling Benitez [facility] CPT-56834 Ofc Vst, Est Level III 12:46:29 CDT Ling Benitez [facility] CPT-14574 Ofc Vst, Est Level IV 17:21:21 CDT Ling Jane Benitez [facility] CPT-33299 Ofc Vst, Est Level III 15:16:44 CDT Ling Benitez [facility] CPT-03335 Ofc Vst, Est Level II 11:42:02 CDT Ling Benitez [facility] CPT-46843 Ofc Vst, Est Level III 12:09:24 [employer] Ling Benitez [facility] CPT-98336 Ofc Vst, New Level III 13:59:43 [employer] Ling Benitez [facility] Procedures Code Procedure Name Date Entry Date Standard Description CPT-G0439 Medicare Annual Wellness Visit 14:32:15 [employer] CPT-G8443 E-Prescribing Medication Sent 20:53:37 [employer] CPT-G0439 Medicare Annual Wellness Visit 20:53:37 [employer] CPT-G8445 E-Prescribing Not sent due to no medication given 16:46: 27 CDT CPT-G8446 E-Prescribing not done due to controlled substance 19:04 :28 CDT CPT-G8446 E-Prescribing not done due to controlled substance 16:45 :14 CDT CPT-G8446 E-Prescribing not done due to controlled substance 13:10 :29 [employer] CPT-G8446 E-Prescribing not done due to controlled substance 15:45 :45 [employer] CPT-G8443 E-Prescribing Medication Sent 16:25:14 [employer] CPT-G0438 Medicare Annual Wellness Visit Initial 16:25:14 [employer] CPT-8446 E-Prescribing not done due to controlled substance 11:29: 25 CDT CPT-8445 E-Prescribing Not sent due to no medication given 09:50: 55 CDT CPT-8446 E-Prescribing not done due to controlled substance 14:50: 03 CDT CPT-69885 Handling of specimen from office to lab 11:13:16 [employer] CPT-25589 Excision of Malignant lesion 2.1-3.0 cm 11:13:16 [employer] CPT-81829 Injection 12:28:55 CDT CPT-22284 Excision of Benign Lesion 1.1-2.0 cm 14:54:15 CDT 02/25 CPT-04150 Injection, Pneumovax 11:03:28 CDT CPT-14570 Incision & Drainage, simple 12:52:53 [employer] CPT-03327 Cryopathy Skin 18:44:39 CDT CPT-84941 Biopsy, skin/subcut/mucous membrane; sngl lsn 10:32:32 CDT CPT-92233 Cryopathy Skin 17:21:21 CDT CPT-54893 Wound Repair, Superficial 11:42:03 CDT CPT-28455 Preventive, Est, (65+) 11:11:45 [employer]
--- OUTSIDE RECORDS SUMMARY | 2017-11-06 07:15 | XMS REPORT | Clinical Summary ---
Author Author User, CARLOS Organization [facility] [place] Address Unknown Phone Unavailable Allergies, Adverse Reactions, [...] MG TAB 1 PO daily TERBINAFINE HCL 81148003181 No Longer Active Ling Benitez KEFLEX 500 MG CAP 1 PO TID for 7 days CEPHALEXIN 26708864317 No Longer Active Ling Benitez POTASSIUM CHLORIDE ER 10 MEQ CR-CAPS 1 PO DAILY POTASSIUM CHLORIDE 25511424512 Active Elly Nuñez [facility] MELATONIN 5 MG TABS 1 po QHS MELATONIN 87924078176 Active Ling Benitez FISH OIL 1000 MG CAPS 1 PO daily OMEGA-3 FATTY ACIDS 96428024187 No Longer Active Ling Benitez ALLOPURINOL 100 MG TABS 1 PO Daily to prevent gout. ALLOPURINOL 22608277595 Active Elly Nuñez OXYCODONE HCL 10 MG TABS 1-2 PO Q4hrs prn OXYCODONE HCL 31833140461 No Longer Active Lingkan Benitez ALEVE 220 MG TAB 2 po qam NAPROXEN SODIUM 21070282881 Active Ling Benitez VALIUM 2 MG TAB 1 PO 1 hr before MRI and may repeat DIAZEPAM 80346487759 No Longer Active Ling Benitez PREDNISONE 20 MG TAB 3 pills daily at once for 2 days, 2 pills daily at once for 2 days, 1 once daily for 2 days PREDNISONE 00686622443 No Longer Active Lingkan Benitez ROBITUSSIN A-C 10-100 MG/5ML SYRUP 1 teaspoon PO Q 4-6 hr prn ROBITUSSIN A-C 10-100 MG/5ML SYRUP No Longer Active Lingkan Benitez TESSALON 200 MG CAPS 1 PO TID prn cough BENZONATATE 73538268039 No Longer Active Lingkan Benitez BIAXIN 500 MG TAB 1 PO BID CLARITHROMYCIN 90833118999 No Longer Active Lingkan Benitez ZOSTAVAX 58465 UNT/0.65ML SOLR 1 injection once to prevent Shingles ZOSTER VACCINE LIVE 90237370341 No Longer Active Lingkan Benitez LASIX 20 MG TAB 1 PO daily FUROSEMIDE 20101916822 Active Elly NICHOLS'Grabiel NASAL SPRAY (DEXAMETHASONE, GENTAMICIN, SALINE) 2 puffs each nostril TID for [address] SEGURA NASAL SPRAY ( DEXAMETHASONE, GENTAMICIN, SALINE) No Longer Active Ling Benitez CHERATUSSIN AC 100-10 MG/5ML SYRP 1 tsp PO Q4hrs prn GUAIFENESIN-CODEINE 40408342842 No Longer Active Lingkan Benitez CIPRO 500 MG TAB 1 PO BID for 7 days CIPROFLOXACIN HCL 59758564859 No Longer Active Ling Benitez VITAMIN D 1000 UNIT TABS 1 PO Daily CHOLECALCIFEROL 58868588075 Active Ling Benitez LOVENOX 40 MG/0.4ML SOLN 1 injection daily to prevent blood clots ENOXAPARIN SODIUM 24731494132 No Longer Active Ling Benitez NORITATE 1 % CREA apply BID METRONIDAZOLE (TOPICAL) 44661381084 No Longer Active Ling Benitez FLEXERIL 10 MG TAB 1 PO QHS CYCLOBENZAPRINE HCL 09487719615 No Longer Active Ling Benitez COUMADIN 3 MG TAB Sig: Take 1 PO QD WARFARIN SODIUM 49844017482 No Longer Active Lingkan Benitez DYAZIDE 37.5-25 MG CAP 1 PO daily (on hold 12/16/07 to evaluate gout recurrance ) TRIAMTERENE-HCTZ 68761951817 No Longer Active Ling Benitez PREDNISONE 20 MG TAB 3 pills daily at once for 2 days, 2 pills daily at once for 2 days, 1 PO daily for 2 days PREDNISONE 31414049249 No Longer Active Ling Benitez COUMADIN 5 MG TABS 1 po on odd days WARFARIN SODIUM 99225305815 No Longer Active Ling Benitez CEPHALEXIN 500 MG CAPS 1 po QID x 7 days CEPHALEXIN 15177764267 No Longer Active Ling Benitez ROBITUSSIN A-C 10-100 MG/5ML SYRUP 1 teaspoon PO Q 4-6 hr prn ROBITUSSIN A-C 10-100 MG/5ML SYRUP 34932314814 No Longer Active Ling Benitez DOXYCYCLINE HYCLATE 100 MG CAP 1 po BID DOXYCYCLINE HYCLATE 64813265287 No Longer Active Ling Benitez PREDNISONE 20 MG TABS 3 PO for 1 day, 2 PO for 2 days and 1 PO for 3 days. PREDNISONE 90172629893 No Longer Active Ling Benitez COLCHICINE 0.6 MG TAB 1 PO Q3hrs prn gout pain. Maximum pills in one day is 8 pills. COLCHICINE Active Riley Rodrigues PREDNISONE 20 MG TAB 3 PO daily for 1 day, then 2 PO daily for 2 days then 1 Po daily for 3 days PREDNISONE 49175709541 No Longer Active Ling Beintez VITAMIN D CAPS (ERGOCALCIFEROL CAPS) 400MG 1 PO daily VITAMIN D CAPS (ERGOCALCIFEROL CAPS) 400MG No Longer Active Ling Benitez PRAVASTATIN SODIUM 40 MG TABS 1 po daily for cholesterol. PRAVASTATIN SODIUM 14124126438 Active Elly Nuñez ZOCOR 40 MG TABS 1 PO daily SIMVASTATIN 21117942438 No Longer Active Ling Benitez BENICAR 20 MG TABS 1 PO QD OLMESARTAN MEDOXOMIL 22391501869 No Longer Active Lingkan Benitez LOTENSIN 40 MG TABS 1 PO daily BENAZEPRIL HCL 23289886625 Active Elly Nuñez NORVASC 10 MG TAB 1 PO QD AMLODIPINE BESYLATE 29145488241 Active Elly Nuñez ROBITUSSIN A-C 10-100 MG/5ML SYRUP 5cc PO Q 4-6 hr prn ROBITUSSIN A-C 10-100 MG/5ML SYRUP 44310890012 No Longer Active Lingkan Benitez LORTAB 5 5-500 MG TABS 1 to 2 PO Q6hrs prn ACETAMINOPHEN- HYDROCODONE 91516545337 No Longer Active Lingkan Benitez ACYCLOVIR 800 MG TABS 1 PO five times a day for 7 days ACYCLOVIR 74239839787 No Longer Active Lingkan Benitez CALTRATE PLUS 600-200 MG-UNIT TABS 1 PO BID OTC CALCIUM CARBONATE-VIT D-MIN 84076404478 Active Lingkan Benitez VYTORIN 10-20 MG TABS 1 PO QAM EZETIMIBE-SIMVASTATIN 43959211044 No Longer Active Elly Nuñez ALEVE 220 MG TABS 2 PO BID prn back pain NAPROXEN SODIUM 91973291566 No Longer Active Lingkan Benitez MICARDIS 80 MG TABS 1 PO daily TELMISARTAN 91569822481 No Longer Active Lingkan Benitez LORTAB 5 5-500 MG TABS 1 q6hrs prn pain HYDROCODONE- ACETAMINOPHEN 22698347083 No Longer Active Lingkan Benitez LOTREL 10-20 MG CAPS 1 po qd AMLODIPINE BESY-BENAZEPRIL HCL 23408124846 No Longer Active Elly Nuñez RETIN-A 0.025 % CREAM apply QD as directed to face TRETINOIN 41970970438 No Longer Active Ling Benitez MAVIK 2 MG TABS 1 po daily TRANDOLAPRIL 47145834256 No Longer Active Ling Benitez CALCIUM 600 MG TABS 1 PO QD OTC CALCIUM 11582746813 No Longer Active Ling Benitez MULTIVITAMINS TABS 1 po daily MULTIPLE VITAMIN 65554482793 Active Ling Benitez ASPIRIN 81 MG TABS 1 po daily ASPIRIN 15193020477 Active Ling Benitez ZOCOR 20 MG TABS 1 po daily SIMVASTATIN 26899945173 No Longer Active Ling Benitez ATENOLOL 100 MG TABS 1 po daily ATENOLOL 68594005613 Active Elly Nuñez HYDROCHLOROTHIAZIDE 50 MG TABS 1 po daily HYDROCHLOROTHIAZIDE 05417455397 No Longer Active Ling Benitez Immunizations Vaccine [...] Description Clinical Lists Update: CBC,CMP,FLP,TSH,HgA1c - Chemistry sodium, serum 138 mmol/L calcium, serum 9.4 mg/dL alanine aminotransferase (SGPT), serum 35 U/L hemoglobin A1C, blood, as % of total hemoglobin 5.9 % aspartate aminotransferase (SGOT), serum 38 U/L cholesterol/HDL ratio, serum, percent 3.4 glucose, plasma fasting 103 mg/dL urea nitrogen, blood 25 mg/dL chloride, serum 105 mmol/L bilirubin, serum, total 0.4 mg/dL Estimated Glomerular Filtration Rate (calc) 60 mL/min/1.73m2 anion gap, serum 13 protein, total, serum 7.2 g/dL HDL cholesterol, serum 45.0 mg/dL potassium, serum 4.2 mmol/L thyroid stimulating hormone, serum 3.55 u[iU]/mL triglyceride, serum, fasting 159 mg/dL carbon dioxide, venous blood 24.0 mmol/L LDL cholesterol, serum 78 mg/dL albumin, serum 4.2 g/dL creatinine, serum 1.0 mg/dL alkaline phosphatase, serum 71 U/L cholesterol, serum 155 mg/dL Clinical Lists Update: CBC,CMP,FLP,TSH,HgA1c - Hematology platelet count 178 10*3/mm3 mean corpuscular volume, RBC 101 fL hematocrit, blood 44 % leukocyte count, blood 7.3 10*3/mm3 hemoglobin, blood 13.6 g/dL erythrocyte (RBC) count 4.35 10*6/mm3 red blood cell distribution width 14.6 % Clinical Lists Update: CMP,Chol,Trig,HgA1c - Chemistry alanine aminotransferase (SGPT), serum 31 U/L aspartate aminotransferase (SGOT), serum 32 U/L protein, total, serum 7.2 g/dL potassium, serum 4.2 mmol/L triglyceride, serum, fasting 158 mg/dL calcium, serum 9.6 mg/dL urea nitrogen, blood 22 mg/dL bilirubin, serum, total 0.4 mg/dL anion gap, serum 12 alkaline phosphatase, serum 81 U/L albumin, serum 4.0 g/dL hemoglobin A1C, blood, as % of total hemoglobin 5.9 % glucose, plasma fasting 102 mg/dL Estimated Glomerular Filtration Rate (calc) 52 mL/min/1.73m2 creatinine, serum 1.1 mg/dL carbon dioxide, venous blood 24.0 mmol/L cholesterol, serum 172 mg/dL sodium, serum 136 mmol/L chloride, serum 104 mmol/L Encounters Code Encounter Date Provider Facility CPT-57925 Ofc Vst, Est Level III 19:27:59 [facility] Ling Benitez DO, FACP CPT-53999 Ofc Vst, Est Level IV 14:39:56 CDT Ling Jane Benitez [facility] CPT-96571 Ofc Vst, Est Level III 16:46:27 CDT Ling Jane Spain Emmanuel, DO, FACP CPT-78937 Ofc Vst, Est Level III 19:04:28 CDT Ling Jane Benitez [facility] [facility] CPT-98093 Ofc Vst, Est Level IV 16:45:14 CDT Ling Jane Benitez [facility] CPT-46807 Ofc Vst, Est Level III 13:10:29 [facility] [employer] Ling Jane Spain Emmanuel, DO, FACP CPT-79510 Ofc Vst, Est Level III 15:45:45 [facility] Ling Spain Emmanuel, DO, FACP CPT-48594 Ofc Vst, Est Level IV 13:57:24 CDT Ling Jane Benitez [facility] CPT-04816 Ofc Vst, Est Level III 14:31:03 CDT Ling Jane Benitez [facility] CPT-88710 Ofc Vst, Est Level IV 15:47:47 [facility] Ling Benitez [facility] CPT-84077 Ofc Vst, Est Level IV 11:13:35 CDT Ling Jane Spain Emmanuel, DO, FACP CPT-61116 Ofc Vst, Est Level IV 10:50:22 CDT Ling Jane Spain Emmanuel, DO, FACP CPT-17232 Ofc Vst, Est Level IV 10:08:22 CDT Ling Jane Dubon S Emmanuel, DO, FACP CPT-12773 Ofc Vst, Est Level IV 10:44:48 CDT Ling Jane Spain Emmanuel, DO, FACP CPT-55107 Ofc Vst, Est Level IV 13:34:31 [employer] [employer] Ling Jane Spain Benitez, DO, FACP CPT-81796 Ofc Vst, Est Level IV 09:49:46 [facility] Ling Jane Spain Benitez, DO, FACP CPT-91527 Ofc Vst, Est Level V 10:39:18 [facility] Ling Spain Benitez, DO, FACP CPT-39359 Ofc Vst, Est Level IV 09:31:27 CDT Ling Jane Spain Emmanuel, DO, FACP CPT-97941 Ofc Vst, Est Level III 11:44:08 CDT Ling Jane Spain Benitez, DO, FACP CPT-25899 Ofc Vst, Est Level V 11:29:25 CDT Ling Jane Spain Emmanuel, DO, FACP CPT-27386 Ofc Vst, Est Level V 09:49:50 CDT Ling Jane Spain Emmanuel, DO, FACP CPT-94900 Ofc Vst, Est Level IV 09:50:55 CDT Ling Jane Spain Benitez, DO, FACP CPT-04768 Ofc Vst, Est Level V 14:50:03 CDT Lingkan Spain Emmanuel, DO, FACP CPT-61205 Ofc Vst, Est Level III 10:16:01 [employer] Ling Spain Emmanuel, DO, FACP CPT-16852 Ofc Vst, Est Level V 09:27:45 [facility] [employer] Ling Jane Spain Benitez, DO, FACP CPT-86530 Ofc Vst, Est Level IV 16:57:02 CDT Ling Jane Dubon S Emmanuel, DO, FACP CPT-26630 Ofc Vst, Est Level IV 16:14:45 CDT Ling Jane Spain Emmanuel, DO, FACP CPT-23015 Ofc Vst, Est Level III 12:28:55 CDT Ling Jane Spain Benitez, DO, FACP CPT-36611 Ofc Vst, Est Level IV 16:33:15 CDT Ling Jane Spain Benitez, DO, FACP CPT-01059 Ofc Vst, Est Level IV 09:14:59 CDT Ling Jane Guardadoner, DO, FACP CPT-81660 Ofc Vst, Est Level IV 11:33:57 CDT Ling Jane Spain Benitez, DO, FACP CPT-78396 Ofc Vst, Est Level IV 11:47:04 CDT Lingkan Spain Bentiez, DO, FACP CPT-27632 Ofc Vst, Est Level IV 14:26:17 CDT Ling Jane Benitez, DO, FACP CPT-82031 Ofc Vst, Est Level V 15:07:54 [facility] Ling Spain Benitez, DO, FACP CPT-11224 Ofc Vst, Est Level III 15:05:00 [employer] Ling Spain Benitez, DO, FACP CPT-05097 Ofc Vst, Est Level III 14:54:15 CDT Lingkan Spain Benitez, DO, FACP CPT-61076 Ofc Vst, Est Level IV 11:03:28 CDT Ling Jane Spain Benitez, DO, FACP CPT-75258 Ofc Vst, Est Level IV 11:23:17 CDT Ling Spain Benitez, DO, FACP CPT-63423 Ofc Vst, Est Level IV 13:38:42 CDT Ling Jane Benitez [facility] CPT-08067 Ofc Vst, Est Level IV 11:06:18 [facility] [employer] Ling Benitez [facility] [place] CPT-68436 Ofc Vst, Est Level III 16:02:00 CDT Lingkan Benitez [facility] [place] CPT-99705 Ofc Vst, Est Level III 13:55:34 CDT Ling Benitez [facility] [place] CPT-05383 Ofc Vst, Est Level IV 10:57:19 CDT Ling Jane Benitez [facility] [place] CPT-11017 Ofc Vst, Est Level IV 10:36:33 [employer] Ling Benitez [facility] [place] CPT-74875 Ofc Vst, Est Level IV 10:32:48 [employer] Ling Benitez [facility] [place] CPT-27291 Ofc Vst, Est Level IV 15:26:49 [employer] Ling Benitez [facility] [place] CPT-06666 Ofc Vst, Est Level IV 11:23:15 CDT Ling Jane Benitez [facility] [place] CPT-30512 Ofc Vst, Est Level IV 10:16:10 CDT Lingkan Benitez [facility] [place] CPT-57724 Ofc Vst, Est Level IV 18:44:39 CDT Ling Benitez [facility] [place] CPT-93648 Ofc Vst, Est Level III 13:15:02 CDT Lingkan Benitez [facility] [place] CPT-82435 Ofc Vst, Est Level IV 12:26:03 [employer] Ling Benitez [facility] [place] CPT-00826 Ofc Vst, Est Level IV 18:06:54 [employer] Ling Benitez [facility] [place] CPT-23339 Ofc Vst, Est Level III 12:46:29 CDT Ling Benitez [facility] [place] CPT-77345 Ofc Vst, Est Level IV 17:21:21 CDT Ling Jane Benitez [facility] [place] CPT-15486 Ofc Vst, Est Level III 15:16:44 CDT Ling Benitez [facility] [place] CPT-80668 Ofc Vst, Est Level II 11:42:02 CDT Ling Benitez [facility] [place] CPT-74661 Ofc Vst, Est Level III 12:09:24 [employer] Ling Benitez [facility] [place] CPT-20630 Ofc Vst, New Level III 13:59:43 [employer] Ling Benitez [facility] [place] Procedures Code Procedure Name Date Entry Date Standard Description CPT-G0439 Medicare Annual Wellness Visit 14:32:15 [facility] [employer] CPT-G8443 E-Prescribing Medication Sent 20:53:37 [facility] [employer] CPT-G0439 Medicare Annual Wellness Visit 20:53:37 [facility] [employer] CPT-G8445 E-Prescribing Not sent due to no medication given 16:46: 27 CDT CPT-G8446 E-Prescribing not done due to controlled substance 19:04 :28 CDT CPT-G8446 E-Prescribing not done due to controlled substance 16:45 :14 CDT CPT-G8446 E-Prescribing not done due to controlled substance 13:10 :29 [facility] [employer] CPT-G8446 E-Prescribing not done due to controlled substance 15:45 :45 [facility] [employer] CPT-G8443 E-Prescribing Medication Sent 16:25:14 [employer] [employer] CPT-G0438 Medicare Annual Wellness Visit Initial 16:25:14 [facility] [employer] CPT-8446 E-Prescribing not done due to controlled substance 11:29: 25 CDT CPT-8445 E-Prescribing Not sent due to no medication given 09:50: 55 CDT CPT-8446 E-Prescribing not done due to controlled substance 14:50: 03 CDT CPT-67927 Handling of specimen from office to lab 11:13:16 [facility] [employer] CPT-11250 Excision of Malignant lesion 2.1-3.0 cm 11:13:16 [employer] CPT-69617 Injection 12:28:55 CDT CPT-46870 Excision of Benign Lesion 1.1-2.0 cm 14:54:15 CDT 02/25 CPT-00525 Injection, Pneumovax 11:03:28 CDT CPT-87091 Incision & Drainage, simple 12:52:53 [facility] [employer] CPT-48942 Cryopathy Skin 18:44:39 CDT CPT-92190 Biopsy, skin/subcut/mucous membrane; sngl lsn 10:32:32 CDT CPT-90345 Cryopathy Skin 17:21:21 CDT CPT-92315 Wound Repair, Superficial 11:42:03 CDT CPT-13418 Preventive, Est, (65+) 11:11:45 [facility] [employer]
--- OUTSIDE RECORDS SUMMARY | 2017-11-06 07:16 | XMS REPORT | Clinical Summary ---
Author Author User, CARLOS Organization Counts Include [facility] Phys[facility] [place] Address Unknown Phone Unavailable Allergies, Adverse Reactions, [...] MG TAB 1 PO daily TERBINAFINE HCL [id number] No Longer Active Ling Benitez KEFLEX 500 MG CAP 1 PO TID for 7 days CEPHALEXIN 71294854202 No Longer Active Ling Benitez POTASSIUM CHLORIDE ER 10 MEQ CR-CAPS 1 PO DAILY POTASSIUM CHLORIDE 04340003672 Active Elly Nuñez [facility] MELATONIN 5 MG TABS 1 po QHS MELATONIN 55815310927 Active Ling Benitez FISH OIL 1000 MG CAPS 1 PO daily OMEGA-3 FATTY ACIDS 98115555274 No Longer Active Ling Benitez ALLOPURINOL 100 MG TABS 1 PO Daily to prevent gout. ALLOPURINOL 81231479139 Active Elly Nuñez OXYCODONE HCL 10 MG TABS 1-2 PO Q4hrs prn OXYCODONE HCL 03429858752 No Longer Active Lingkan Benitez ALEVE 220 MG TAB 2 po qam NAPROXEN SODIUM 05439853198 Active Ling Benitez VALIUM 2 MG TAB 1 PO 1 hr before MRI and may repeat DIAZEPAM 50509340956 No Longer Active Ling Benitez PREDNISONE 20 MG TAB 3 pills daily at once for 2 days, 2 pills daily at once for 2 days, 1 once daily for 2 days PREDNISONE 51547515132 No Longer Active Lingkan eBnitez ROBITUSSIN A-C 10-100 MG/5ML SYRUP 1 teaspoon PO Q 4-6 hr prn ROBITUSSIN A-C 10-100 MG/5ML SYRUP No Longer Active Lingkan Benitez TESSALON 200 MG CAPS 1 PO TID prn cough BENZONATATE 63597813278 No Longer Active Lingkan Benitez BIAXIN 500 MG TAB 1 PO BID CLARITHROMYCIN 33774946655 No Longer Active Lingkan Benitez ZOSTAVAX 15466 UNT/0.65ML SOLR 1 injection once to prevent Shingles ZOSTER VACCINE LIVE 15443809060 No Longer Active Lingkan Benitez LASIX 20 MG TAB 1 PO daily FUROSEMIDE 87910652219 Active Elly NICHOLS'Grabiel NASAL SPRAY (DEXAMETHASONE, GENTAMICIN, SALINE) 2 puffs each nostril TID for [address] SEGURA NASAL SPRAY ( DEXAMETHASONE, GENTAMICIN, SALINE) No Longer Active Ling Benitez CHERATUSSIN AC 100-10 MG/5ML SYRP 1 tsp PO Q4hrs prn GUAIFENESIN-CODEINE 83701650468 No Longer Active Lingkan Benitez CIPRO 500 MG TAB 1 PO BID for 7 days CIPROFLOXACIN HCL 88854300311 No Longer Active Ling Benitez VITAMIN D 1000 UNIT TABS 1 PO Daily CHOLECALCIFEROL 18761097282 Active Ling Benitez LOVENOX 40 MG/0.4ML SOLN 1 injection daily to prevent blood clots ENOXAPARIN SODIUM 31452434360 No Longer Active Ling Benitez NORITATE 1 % CREA apply BID METRONIDAZOLE (TOPICAL) 44271292193 No Longer Active Ling Benitez FLEXERIL 10 MG TAB 1 PO QHS CYCLOBENZAPRINE HCL 76742798388 No Longer Active Ling Benitez COUMADIN 3 MG TAB Sig: Take 1 PO QD WARFARIN SODIUM 13329560963 No Longer Active Lingkan Benitez DYAZIDE 37.5-25 MG CAP 1 PO daily (on hold 12/16/07 to evaluate gout recurrance ) TRIAMTERENE-HCTZ 86687727060 No Longer Active Ling Benitez PREDNISONE 20 MG TAB 3 pills daily at once for 2 days, 2 pills daily at once for 2 days, 1 PO daily for 2 days PREDNISONE 88163361221 No Longer Active Ling Benitez COUMADIN 5 MG TABS 1 po on odd days WARFARIN SODIUM 07628902558 No Longer Active Ling Benitez CEPHALEXIN 500 MG CAPS 1 po QID x 7 days CEPHALEXIN 93977857387 No Longer Active Ling Benitez ROBITUSSIN A-C 10-100 MG/5ML SYRUP 1 teaspoon PO Q 4-6 hr prn ROBITUSSIN A-C 10-100 MG/5ML SYRUP 02369467236 No Longer Active Ling Benitez DOXYCYCLINE HYCLATE 100 MG CAP 1 po BID DOXYCYCLINE HYCLATE 07399802767 No Longer Active Ling Benitez PREDNISONE 20 MG TABS 3 PO for 1 day, 2 PO for 2 days and 1 PO for 3 days. PREDNISONE 61179217272 No Longer Active Ling Benitez COLCHICINE 0.6 MG TAB 1 PO Q3hrs prn gout pain. Maximum pills in one day is 8 pills. COLCHICINE Active Riley Rodrigues PREDNISONE 20 MG TAB 3 PO daily for 1 day, then 2 PO daily for 2 days then 1 Po daily for 3 days PREDNISONE 34553285505 No Longer Active Ling Benitez VITAMIN D CAPS (ERGOCALCIFEROL CAPS) 400MG 1 PO daily VITAMIN D CAPS (ERGOCALCIFEROL CAPS) 400MG No Longer Active Ling Benitez PRAVASTATIN SODIUM 40 MG TABS 1 po daily for cholesterol. PRAVASTATIN SODIUM 48685113862 Active Elly Nuñez ZOCOR 40 MG TABS 1 PO daily SIMVASTATIN 92530682334 No Longer Active Ling Benitez BENICAR 20 MG TABS 1 PO QD OLMESARTAN MEDOXOMIL 62218953648 No Longer Active Lingkan Benitez LOTENSIN 40 MG TABS 1 PO daily BENAZEPRIL HCL 12109333037 Active Elly Nuñez NORVASC 10 MG TAB 1 PO QD AMLODIPINE BESYLATE 75545402731 Active Elly Nuñez ROBITUSSIN A-C 10-100 MG/5ML SYRUP 5cc PO Q 4-6 hr prn ROBITUSSIN A-C 10-100 MG/5ML SYRUP 14038443401 No Longer Active Lingkan Benitez LORTAB 5 5-500 MG TABS 1 to 2 PO Q6hrs prn ACETAMINOPHEN- HYDROCODONE 34941987427 No Longer Active Lingkan Benitez ACYCLOVIR 800 MG TABS 1 PO five times a day for 7 days ACYCLOVIR 69717979065 No Longer Active Lingkan Benitez CALTRATE PLUS 600-200 MG-UNIT TABS 1 PO BID OTC CALCIUM CARBONATE-VIT D-MIN 86087544625 Active Lingkan Benitez VYTORIN 10-20 MG TABS 1 PO QAM EZETIMIBE-SIMVASTATIN 63153492290 No Longer Active Elly Nuñez ALEVE 220 MG TABS 2 PO BID prn back pain NAPROXEN SODIUM 16573618833 No Longer Active Lingkan Benitez MICARDIS 80 MG TABS 1 PO daily TELMISARTAN 86925496744 No Longer Active Lingkan Benitez LORTAB 5 5-500 MG TABS 1 q6hrs prn pain HYDROCODONE- ACETAMINOPHEN 26718766950 No Longer Active Lingkan Benitez LOTREL 10-20 MG CAPS 1 po qd AMLODIPINE BESY-BENAZEPRIL HCL 64611932542 No Longer Active Elly Nuñez RETIN-A 0.025 % CREAM apply QD as directed to face TRETINOIN 20847435742 No Longer Active Ling Benitez MAVIK 2 MG TABS 1 po daily TRANDOLAPRIL 91980411248 No Longer Active Ling Benitez CALCIUM 600 MG TABS 1 PO QD OTC CALCIUM 00000083404 No Longer Active Ling Benitez MULTIVITAMINS TABS 1 po daily MULTIPLE VITAMIN 26165295251 Active Ling Benitez ASPIRIN 81 MG TABS 1 po daily ASPIRIN 19689533806 Active Ling Benitez ZOCOR 20 MG TABS 1 po daily SIMVASTATIN 12962812767 No Longer Active Ling Benitez ATENOLOL 100 MG TABS 1 po daily ATENOLOL 76356690893 Active Elly Nuñez HYDROCHLOROTHIAZIDE 50 MG TABS 1 po daily HYDROCHLOROTHIAZIDE 16057662709 No Longer Active Ling Benitez Immunizations Vaccine [...] mL/min/1.73m2 Encounters Code Encounter Date Provider Facility CPT-28438 Ofc Vst, Est Level III 19:27:59 BRII Benitez DO, FAC CPT-07850 Ofc Vst, Est Level IV 14:39:56 CDT Ling Jane [facility]itez [facility] CPT-96669 Ofc Vst, Est Level III 16:46:27 CDT Ling Jane [place] Emmanuel, DO, FACP CPT-04961 Ofc Vst, Est Level III 19:04:28 CDT Ling Jane Benitez [facility] CPT-19055 Ofc Vst, Est Level IV 16:45:14 CDT Ling Jane Benite[facility] CPT-42766 Ofc Vst, Est Level III 13:10:29 FACILITY MAINTENANCE 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 Ling Jane [place] Emmanuel, DO, FACP CPT-82739 Ofc Vst, Est Level III 15:45:45 FACILITY MAINTENANCE TECHNICIAN Ling [place] Emmanuel, DO, FACP CPT-40543 Ofc Vst, Est Level IV 13:57:24 CDT Ling Jane Benitez [facility] CPT-02828 Ofc Vst, Est Level III 14:31:03 CDT Ling Jane Benitez [facility] CPT-61415 Ofc Vst, Est Level IV 15:47:47 FACILITY MAINTENANCE TECHNICIAN Ling Benitez [facility] CPT-78242 Ofc Vst, Est Level IV 11:13:35 CDT Ling Jane [place] Emmanuel, DO, FACP CPT-87180 Ofc Vst, Est Level IV 10:50:22 CDT Ling Jane [place] Emmanuel, DO, FACP CPT-25595 Ofc Vst, Est Level IV 10:08:22 CDT Ling Jane Dubon S Emmanuel, DO, FACP CPT-58242 Ofc Vst, Est Level IV 10:44:48 CDT Ling Jane [place] Emmanuel, DO, FACP CPT-77375 Ofc Vst, Est Level IV 13:34:31 FACILITY MAINTENANCE TECHNICIAN Ling Jane [place] Benitez, DO, FACP CPT-13542 Ofc Vst, Est Level IV 09:49:46 FACILITY MAINTENANCE TECHNICIAN Ling Jane [place] Benitez, DO, FACP CPT-03601 Ofc Vst, Est Level V 10:39:18 FACILITY MAINTENANCE TECHNICIAN Ling [place] Benitez, DO, FACP CPT-82038 Ofc Vst, Est Level IV 09:31:27 CDT Ling Jane [place] Emmanuel, DO, FACP CPT-65100 Ofc Vst, Est Level III 11:44:08 CDT Ling Jane [place] Benitez, DO, FACP CPT-21614 Ofc Vst, Est Level V 11:29:25 CDT Ling Jane [place] Emmanuel, DO, FACP CPT-48056 Ofc Vst, Est Level V 09:49:50 CDT Ling Jane [place] Emmanuel, DO, FACP CPT-46794 Ofc Vst, Est Level IV 09:50:55 CDT Ling Jane [place] Benitez, DO, FACP CPT-92945 Ofc Vst, Est Level V 14:50:03 CDT Lingkan [place] Emmanuel, DO, FACP CPT-93329 Ofc Vst, Est Level III 10:16:01 FACILITY MAINTENANCE TECHNICIAN Ling [place] Emmanuel, DO, FACP CPT-45706 Ofc Vst, Est Level V 09:27:45 FACILITY MAINTENANCE TECHNICIAN Ling Jane [place] Benitez, DO, FACP CPT-18029 Ofc Vst, Est Level IV 16:57:02 CDT Ling Jane Dubon S Emmanuel, DO, FACP CPT-66543 Ofc Vst, Est Level IV 16:14:45 CDT Ling Jane [place] Emmanuel, DO, FACP CPT-28728 Ofc Vst, Est Level III 12:28:55 CDT Ling Jane [place] Benitez, DO, FACP CPT-63645 Ofc Vst, Est Level IV 16:33:15 CDT Ling Jane [place] Benitez, DO, FACP CPT-87074 Ofc Vst, Est Level IV 09:14:59 CDT Ling Jane Guardadoner, DO, FACP CPT-56310 Ofc Vst, Est Level IV 11:33:57 CDT Ling Jane [place] Benitez, DO, FACP CPT-55779 Ofc Vst, Est Level IV 11:47:04 CDT Lingkan [place] Benitez, DO, FACP CPT-07423 Ofc Vst, Est Level IV 14:26:17 CDT Ling Jane Benitez, DO, FACP CPT-95273 Ofc Vst, Est Level V 15:07:54 FACILITY MAINTENANCE TECHNICIAN Ling [place] Benitez, DO, FACP CPT-49671 Ofc Vst, Est Level III 15:05:00 FACILITY MAINTENANCE TECHNICIAN Ling [place] Benitez, DO, FACP CPT-38826 Ofc Vst, Est Level III 14:54:15 CDT Lingkna [place] Benitez, DO, FACP CPT-16366 Ofc Vst, Est Level IV 11:03:28 CDT Ling Jane [place] Benitez, DO, FACP CPT-55480 Ofc Vst, Est Level IV 11:23:17 CDT Ling [place] Benitez, DO, FACP CPT-79611 Ofc Vst, Est Level IV 13:38:42 CDT Ling Jane Benitez [facility] CPT-30168 Ofc Vst, Est Level IV 11:06:18 FACILITY MAINTENANCE TECHNICIAN Ling Benitez [facility] [place] CPT-31556 Ofc Vst, Est Level III 16:02:00 CDT Lingkan Benitez [facility] [place] CPT-35017 Ofc Vst, Est Level III 13:55:34 CDT Ling Benitez [facility] [place] CPT-64794 Ofc Vst, Est Level IV 10:57:19 CDT Ling Jane Benitez [facility] [place] CPT-18709 Ofc Vst, Est Level IV 10:36:33 FACILITY MAINTENANCE TECHNICIAN Ling Benitez [facility] [place] CPT-41740 Ofc Vst, Est Level IV 10:32:48 FACILITY MAINTENANCE TECHNICIAN Ling Benitez [facility] [place] CPT-28853 Ofc Vst, Est Level IV 15:26:49 FACILITY MAINTENANCE TECHNICIAN Ling Benitez [facility] [place] CPT-27394 Ofc Vst, Est Level IV 11:23:15 CDT Ling Jane Benitez [facility] [place] CPT-97530 Ofc Vst, Est Level IV 10:16:10 CDT Lingkan Benitez [facility] [place] CPT-70369 Ofc Vst, Est Level IV 18:44:39 CDT Ling Benitez [facility] [place] CPT-20732 Ofc Vst, Est Level III 13:15:02 CDT Lingkan Benitez [facility] [place] CPT-79462 Ofc Vst, Est Level IV 12:26:03 FACILITY MAINTENANCE TECHNICIAN Ling Benitez [facility] [place] CPT-66549 Ofc Vst, Est Level IV 18:06:54 FACILITY MAINTENANCE TECHNICIAN Ling Benitez [facility] [place] CPT-69816 Ofc Vst, Est Level III 12:46:29 CDT Ling Benitez [facility] [place] CPT-88569 Ofc Vst, Est Level IV 17:21:21 CDT Ling Jane Benitez [facility] [place] CPT-45870 Ofc Vst, Est Level III 15:16:44 CDT Ling Benitez Counts Include [facility] [place] CPT-09326 Ofc Vst, Est Level II 11:42:02 CDT Ling Benitez Counts Include [facility] [place] CPT-95604 Ofc Vst, Est Level III 12:09:24 FACILITY MAINTENANCE TECHNICIAN Ling Benitez Counts Include [facility] [place] CPT-09180 Ofc Vst, New Level III 13:59:43 FACILITY MAINTENANCE TECHNICIAN Ling Benitez [facility] [place] Procedures Code Procedure Name Date Entry Date Standard Description CPT-G0439 Medicare Annual Wellness Visit 14:32:15 FACILITY MAINTENANCE TECHNICIAN CPT-G8443 E-Prescribing Medication Sent 20:53:37 FACILITY MAINTENANCE TECHNICIAN CPT-G0439 Medicare Annual Wellness Visit 20:53:37 FACILITY MAINTENANCE TECHNICIAN CPT-G8445 E-Prescribing Not sent due to no medication given 16:46: 27 CDT CPT-G8446 E-Prescribing not done due to controlled substance 19:04 :28 CDT CPT-G8446 E-Prescribing not done due to controlled substance 16:45 :14 CDT CPT-G8446 E-Prescribing not done due to controlled substance 13:10 :29 FACILITY MAINTENANCE TECHNICIAN CPT-G8446 E-Prescribing not done due to controlled substance 15:45 :45 FACILITY MAINTENANCE TECHNICIAN CPT-G8443 E-Prescribing Medication Sent 16:25:14 FACILITY MAINTENANCE TECHNICIAN CPT-G0438 Medicare Annual Wellness Visit Initial 16:25:14 FACILITY MAINTENANCE TECHNICIAN CPT-8446 E-Prescribing not done due to controlled substance 11:29: 25 CDT CPT-8445 E-Prescribing Not sent due to no medication given 09:50: 55 CDT CPT-8446 E-Prescribing not done due to controlled substance 14:50: 03 CDT CPT-66873 Handling of specimen from office to lab 11:13:16 FACILITY MAINTENANCE TECHNICIAN CPT-76496 Excision of Malignant lesion 2.1-3.0 cm 11:13:16 FACILITY MAINTENANCE TECHNICIAN CPT-18989 Injection 12:28:55 CDT CPT-43145 Excision of Benign Lesion 1.1-2.0 cm 14:54:15 CDT 02/25 CPT-88409 Injection, Pneumovax 11:03:28 CDT CPT-16147 Incision & Drainage, simple 12:52:53 FACILITY MAINTENANCE TECHNICIAN CPT-48346 Cryopathy Skin 18:44:39 CDT CPT-56806 Biopsy, skin/subcut/mucous membrane; sngl lsn 10:32:32 CDT CPT-63122 Cryopathy Skin 17:21:21 CDT CPT-78879 Wound Repair, Superficial 11:42:03 CDT CPT-31622 Preventive, Est, (65+) 11:11:45 FACILITY MAINTENANCE TECHNICIAN
--- OUTSIDE RECORDS SUMMARY | 2017-11-06 07:17 | XMS REPORT | Clinical Summary ---
Author Author User, CARLOS Organization [facility] [place] Address Unknown Phone Unavailable Allergies, Adverse Reactions, [...] Benitez Dehydration BREAST MASS, LEFT 611.72 Resolved iLng Benitez Lump or mass in breast BREAST [...] MG TAB 1 PO daily TERBINAFINE HCL [id number] No Longer Active Ling Benitez KEFLEX 500 MG CAP 1 PO TID for 7 days CEPHALEXIN 92873607237 No Longer Active Ling Benitez POTASSIUM CHLORIDE ER 10 MEQ CR-CAPS 1 PO DAILY POTASSIUM CHLORIDE 29166161866 Active Elly Nuñez [facility] MELATONIN 5 MG TABS 1 po QHS MELATONIN 86601361844 Active Ling Benitez FISH OIL 1000 MG CAPS 1 PO daily OMEGA-3 FATTY ACIDS 33387000848 No Longer Active Ling Benitez ALLOPURINOL 100 MG TABS 1 PO Daily to prevent gout. ALLOPURINOL 54031575655 Active Elly Nuñez OXYCODONE HCL 10 MG TABS 1-2 PO Q4hrs prn OXYCODONE HCL 86604972123 No Longer Active Lingkan Benitez ALEVE 220 MG TAB 2 po qam NAPROXEN SODIUM 93162527360 Active Ling Benitez VALIUM 2 MG TAB 1 PO 1 hr before MRI and may repeat DIAZEPAM 36811348803 No Longer Active Ling Benitez PREDNISONE 20 MG TAB 3 pills daily at once for 2 days, 2 pills daily at once for 2 days, 1 once daily for 2 days PREDNISONE 64865872723 No Longer Active Lingkan Benitez ROBITUSSIN A-C 10-100 MG/5ML SYRUP 1 teaspoon PO Q 4-6 hr prn ROBITUSSIN A-C 10-100 MG/5ML SYRUP No Longer Active Lingkan Benitez TESSALON 200 MG CAPS 1 PO TID prn cough BENZONATATE 94595255191 No Longer Active Lingkan Benitze BIAXIN 500 MG TAB 1 PO BID CLARITHROMYCIN 98871288177 No Longer Active Lingkan Benitez ZOSTAVAX 27639 UNT/0.65ML SOLR 1 injection once to prevent Shingles ZOSTER VACCINE LIVE 04708842258 No Longer Active Lingkan Benitez LASIX 20 MG TAB 1 PO daily FUROSEMIDE 54462620928 Active Elly NICHOLS'Grabiel NASAL SPRAY (DEXAMETHASONE, GENTAMICIN, SALINE) 2 puffs each nostril TID for [address] SEGURA NASAL SPRAY ( DEXAMETHASONE, GENTAMICIN, SALINE) No Longer Active Ling Benitez CHERATUSSIN AC 100-10 MG/5ML SYRP 1 tsp PO Q4hrs prn GUAIFENESIN-CODEINE 97284589451 No Longer Active Lingkan Benitez CIPRO 500 MG TAB 1 PO BID for 7 days CIPROFLOXACIN HCL 94579914957 No Longer Active Ling Benitez VITAMIN D 1000 UNIT TABS 1 PO Daily CHOLECALCIFEROL 79721682801 Active Ling Benitez LOVENOX 40 MG/0.4ML SOLN 1 injection daily to prevent blood clots ENOXAPARIN SODIUM 60636042804 No Longer Active Ling Benitez NORITATE 1 % CREA apply BID METRONIDAZOLE (TOPICAL) 01960608026 No Longer Active Ling Benitez FLEXERIL 10 MG TAB 1 PO QHS CYCLOBENZAPRINE HCL 57890382260 No Longer Active Ling Benitez COUMADIN 3 MG TAB Sig: Take 1 PO QD WARFARIN SODIUM 47950087649 No Longer Active Lingkan Benitez DYAZIDE 37.5-25 MG CAP 1 PO daily (on hold 12/16/07 to evaluate gout recurrance ) TRIAMTERENE-HCTZ 37755977301 No Longer Active Ling Benitez PREDNISONE 20 MG TAB 3 pills daily at once for 2 days, 2 pills daily at once for 2 days, 1 PO daily for 2 days PREDNISONE 15414866764 No Longer Active Ling Benitez COUMADIN 5 MG TABS 1 po on odd days WARFARIN SODIUM 25055480129 No Longer Active Ling Benitez CEPHALEXIN 500 MG CAPS 1 po QID x 7 days CEPHALEXIN 72081553296 No Longer Active Ling Benitez ROBITUSSIN A-C 10-100 MG/5ML SYRUP 1 teaspoon PO Q 4-6 hr prn ROBITUSSIN A-C 10-100 MG/5ML SYRUP 78832711185 No Longer Active Ling Benitez DOXYCYCLINE HYCLATE 100 MG CAP 1 po BID DOXYCYCLINE HYCLATE 27020195017 No Longer Active Ling Benitez PREDNISONE 20 MG TABS 3 PO for 1 day, 2 PO for 2 days and 1 PO for 3 days. PREDNISONE 95063147588 No Longer Active Ling Benitez COLCHICINE 0.6 MG TAB 1 PO Q3hrs prn gout pain. Maximum pills in one day is 8 pills. COLCHICINE Active Riley Rodrigues PREDNISONE 20 MG TAB 3 PO daily for 1 day, then 2 PO daily for 2 days then 1 Po daily for 3 days PREDNISONE 08084622761 No Longer Active Ling Benitez VITAMIN D CAPS (ERGOCALCIFEROL CAPS) 400MG 1 PO daily VITAMIN D CAPS (ERGOCALCIFEROL CAPS) 400MG No Longer Active Ling Benitez PRAVASTATIN SODIUM 40 MG TABS 1 po daily for cholesterol. PRAVASTATIN SODIUM 25992370928 Active Elly Nuñez ZOCOR 40 MG TABS 1 PO daily SIMVASTATIN 25021550180 No Longer Active Ling Benitez BENICAR 20 MG TABS 1 PO QD OLMESARTAN MEDOXOMIL 27077115044 No Longer Active Lingkan Benitez LOTENSIN 40 MG TABS 1 PO daily BENAZEPRIL HCL 60303126314 Active Elly Nuñez NORVASC 10 MG TAB 1 PO QD AMLODIPINE BESYLATE 48444604605 Active Elly Nuñez ROBITUSSIN A-C 10-100 MG/5ML SYRUP 5cc PO Q 4-6 hr prn ROBITUSSIN A-C 10-100 MG/5ML SYRUP 35551485769 No Longer Active Lingkan Benitez LORTAB 5 5-500 MG TABS 1 to 2 PO Q6hrs prn ACETAMINOPHEN- HYDROCODONE 98659195582 No Longer Active Lingkan Benitez ACYCLOVIR 800 MG TABS 1 PO five times a day for 7 days ACYCLOVIR 09327828604 No Longer Active Lingkan Benitez CALTRATE PLUS 600-200 MG-UNIT TABS 1 PO BID OTC CALCIUM CARBONATE-VIT D-MIN 71558933092 Active Lingkan Benitez VYTORIN 10-20 MG TABS 1 PO QAM EZETIMIBE-SIMVASTATIN 95367325393 No Longer Active Elly Nuñez ALEVE 220 MG TABS 2 PO BID prn back pain NAPROXEN SODIUM 77171837757 No Longer Active Lingkan Benitez MICARDIS 80 MG TABS 1 PO daily TELMISARTAN 44076718664 No Longer Active Lingkan Benitez LORTAB 5 5-500 MG TABS 1 q6hrs prn pain HYDROCODONE- ACETAMINOPHEN 17557020694 No Longer Active Lingkan Benitez LOTREL 10-20 MG CAPS 1 po qd AMLODIPINE BESY-BENAZEPRIL HCL 50424330455 No Longer Active Elly Nuñez RETIN-A 0.025 % CREAM apply QD as directed to face TRETINOIN 85965340819 No Longer Active Ling Benitez MAVIK 2 MG TABS 1 po daily TRANDOLAPRIL 24198416273 No Longer Active Ling Benitez CALCIUM 600 MG TABS 1 PO QD OTC CALCIUM 18038977650 No Longer Active Ling Benitez MULTIVITAMINS TABS 1 po daily MULTIPLE VITAMIN 53052617161 Active Ling Benitez ASPIRIN 81 MG TABS 1 po daily ASPIRIN 45107342822 Active Ling Benitez ZOCOR 20 MG TABS 1 po daily SIMVASTATIN 38768918010 No Longer Active Ling Benitez ATENOLOL 100 MG TABS 1 po daily ATENOLOL 64158532861 Active Elly Nuñez HYDROCHLOROTHIAZIDE 50 MG TABS 1 po daily HYDROCHLOROTHIAZIDE 87150167253 No Longer Active Ling Benitez Immunizations Vaccine [...] mL/min/1.73m2 Encounters Code Encounter Date Provider Facility CPT-35776 Ofc Vst, Est Level III 19:27:59 BRII Benitez DO, FAC CPT-07908 Ofc Vst, Est Level IV 14:39:56 CDT Ling Jane Benitez [facility] CPT-47739 Ofc Vst, Est Level III 16:46:27 CDT Ling Jane Spain Emmanuel, DO, FACP CPT-02104 Ofc Vst, Est Level III 19:04:28 CDT Ling Jane Benitez [facility] CPT-05430 Ofc Vst, Est Level IV 16:45:14 CDT Ling Jane Benitez [facility] CPT-00744 Ofc Vst, Est Level III 13:10:29 HAND PATTERN MARKER Ling Jane [place] Emmanuel, DO, FACP CPT-95970 Ofc Vst, Est Level III 15:45:45 HAND PATTERN MARKER Ling [place] Emmanuel, DO, FACP CPT-83009 Ofc Vst, Est Level IV 13:57:24 CDT Ling Jane Benitez [facility] CPT-73787 Ofc Vst, Est Level III 14:31:03 CDT Ling Jane Benitez [facility] CPT-54671 Ofc Vst, Est Level IV 15:47:47 HAND PATTERN MARKER Ling Benitez [facility] CPT-64553 Ofc Vst, Est Level IV 11:13:35 CDT Ling Jane [place] Emmanuel, DO, FACP CPT-38881 Ofc Vst, Est Level IV 10:50:22 CDT Ling Jane [place] Emmanuel, DO, FACP CPT-09359 Ofc Vst, Est Level IV 10:08:22 CDT Ling Jane Dubon S Emmanuel, DO, FACP CPT-98403 Ofc Vst, Est Level IV 10:44:48 CDT Ling Jane [place] Emmanuel, DO, FACP CPT-09085 Ofc Vst, Est Level IV 13:34:31 HAND PATTERN MARKER Ling Jane Spain Benitez, DO, FACP CPT-88744 Ofc Vst, Est Level IV 09:49:46 HAND PATTERN MARKER Ling Jane Spain Benitez, DO, FACP CPT-34250 Ofc Vst, Est Level V 10:39:18 HAND PATTERN MARKER Ling Spain Benitez, DO, FACP CPT-49788 Ofc Vst, Est Level IV 09:31:27 CDT Ling Jane [place] Emmanuel, DO, FACP CPT-53914 Ofc Vst, Est Level III 11:44:08 CDT Ling Jane [place] Benitez, DO, FACP CPT-09881 Ofc Vst, Est Level V 11:29:25 CDT Ling Jane [place] Emmanuel, DO, FACP CPT-59047 Ofc Vst, Est Level V 09:49:50 CDT Ling Jane [place] Emmanuel, DO, FACP CPT-58083 Ofc Vst, Est Level IV 09:50:55 CDT Ling Jane Spain Benitez, DO, FACP CPT-30675 Ofc Vst, Est Level V 14:50:03 CDT Lingkan [place] Emmanuel, DO, FACP CPT-31856 Ofc Vst, Est Level III 10:16:01 HAND PATTERN MARKER Ling [place] Emmanuel, DO, FACP CPT-89425 Ofc Vst, Est Level V 09:27:45 HAND PATTERN MARKER Ling Jane Spain Benitez, DO, FACP CPT-40199 Ofc Vst, Est Level IV 16:57:02 CDT Ling Jane Dubon S Emmanuel, DO, FACP CPT-52157 Ofc Vst, Est Level IV 16:14:45 CDT Ling Jane [place] Emmanuel, DO, FACP CPT-15381 Ofc Vst, Est Level III 12:28:55 CDT Ling Jane Spain Benitez, DO, FACP CPT-83665 Ofc Vst, Est Level IV 16:33:15 CDT Ling Jane Spain Benitez, DO, FACP CPT-21221 Ofc Vst, Est Level IV 09:14:59 CDT Ling Jane Guardadoner, DO, FACP CPT-82634 Ofc Vst, Est Level IV 11:33:57 CDT Ling Jane Spain Benitez, DO, FACP CPT-03393 Ofc Vst, Est Level IV 11:47:04 CDT Lingkan Spain Benitez, DO, FACP CPT-40416 Ofc Vst, Est Level IV 14:26:17 CDT Ling Jane Benitez, DO, FACP CPT-94463 Ofc Vst, Est Level V 15:07:54 HAND PATTERN MARKER Ling Spain Benitez, DO, FACP CPT-92070 Ofc Vst, Est Level III 15:05:00 HAND PATTERN MARKER Ling Spain Benitez, DO, FACP CPT-62535 Ofc Vst, Est Level III 14:54:15 CDT Lingkan Spain Benitez, DO, FACP CPT-38690 Ofc Vst, Est Level IV 11:03:28 CDT Ling Jane Spain Benitez, DO, FACP CPT-80111 Ofc Vst, Est Level IV 11:23:17 CDT Ling Spain Benitez, DO, FACP CPT-15620 Ofc Vst, Est Level IV 13:38:42 CDT Ling Jane Benitez [facility] CPT-45705 Ofc Vst, Est Level IV 11:06:18 HAND PATTERN MARKER Ling Benitez [facility] CPT-19543 Ofc Vst, Est Level III 16:02:00 CDT Lingkan Benitez [facility] CPT-00029 Ofc Vst, Est Level III 13:55:34 CDT Ling Benitez [facility] [place] CPT-75130 Ofc Vst, Est Level IV 10:57:19 CDT Ling Jane Benitez [facility] [place] CPT-80620 Ofc Vst, Est Level IV 10:36:33 HAND PATTERN MARKER Ling Benitez [facility] [place] CPT-33368 Ofc Vst, Est Level IV 10:32:48 HAND PATTERN MARKER Ling Benitez [facility] [place] CPT-48667 Ofc Vst, Est Level IV 15:26:49 HAND PATTERN MARKER Ling Benitez [facility] [place] CPT-03595 Ofc Vst, Est Level IV 11:23:15 CDT Ling Jane Benitez [facility] [place] CPT-95006 Ofc Vst, Est Level IV 10:16:10 CDT Lingkan Benitez [facility] [place] CPT-83207 Ofc Vst, Est Level IV 18:44:39 CDT Ling Benitez [facility] [place] CPT-19500 Ofc Vst, Est Level III 13:15:02 CDT Lingkan Benitez [facility] [place] CPT-67656 Ofc Vst, Est Level IV 12:26:03 HAND PATTERN MARKER Ling Benitez [facility] [place] CPT-59549 Ofc Vst, Est Level IV 18:06:54 HAND PATTERN MARKER Ling Benitez [facility] [place] CPT-58302 Ofc Vst, Est Level III 12:46:29 CDT Ling Benitez [facility] [place] CPT-15359 Ofc Vst, Est Level IV 17:21:21 CDT Ling Jane Benitez [facility] [place] CPT-82833 Ofc Vst, Est Level III 15:16:44 CDT Ling Benitez [facility] [place] CPT-36101 Ofc Vst, Est Level II 11:42:02 CDT Ling Benitez [facility] [place] CPT-23160 Ofc Vst, Est Level III 12:09:24 HAND PATTERN MARKER Ling Benitez [facility] [place] CPT-41632 Ofc Vst, New Level III 13:59:43 HAND PATTERN MARKER Ling Benitez [facility] [place] Procedures Code Procedure Name Date Entry Date Standard Description CPT-G0439 Medicare Annual Wellness Visit 14:32:15 HAND PATTERN MARKER CPT-G8443 E-Prescribing Medication Sent 20:53:37 HAND PATTERN MARKER CPT-G0439 Medicare Annual Wellness Visit 20:53:37 HAND PATTERN MARKER CPT-G8445 E-Prescribing Not sent due to no medication given 16:46: 27 CDT CPT-G8446 E-Prescribing not done due to controlled substance 19:04 :28 CDT CPT-G8446 E-Prescribing not done due to controlled substance 16:45 :14 CDT CPT-G8446 E-Prescribing not done due to controlled substance 13:10 :29 HAND PATTERN MARKER CPT-G8446 E-Prescribing not done due to controlled substance 15:45 :45 HAND PATTERN MARKER CPT-G8443 E-Prescribing Medication Sent 16:25:14 HAND PATTERN MARKER CPT-G0438 Medicare Annual Wellness Visit Initial 16:25:14 HAND PATTERN MARKER CPT-8446 E-Prescribing not done due to controlled substance 11:29: 25 CDT CPT-8445 E-Prescribing Not sent due to no medication given 09:50: 55 CDT CPT-8446 E-Prescribing not done due to controlled substance 14:50: 03 CDT CPT-78071 Handling of specimen from office to lab 11:13:16 HAND PATTERN MARKER CPT-49485 Excision of Malignant lesion 2.1-3.0 cm 11:13:16 HAND PATTERN MARKER CPT-70377 Injection 12:28:55 CDT CPT-41033 Excision of Benign Lesion 1.1-2.0 cm 14:54:15 CDT 02/25 CPT-79545 Injection, Pneumovax 11:03:28 CDT CPT-24611 Incision & Drainage, simple 12:52:53 HAND PATTERN MARKER CPT-43046 Cryopathy Skin 18:44:39 CDT CPT-40344 Biopsy, skin/subcut/mucous membrane; sngl lsn 10:32:32 CDT CPT-15276 Cryopathy Skin 17:21:21 CDT CPT-58218 Wound Repair, Superficial 11:42:03 CDT CPT-46507 Preventive, Est, (65+) 11:11:45 HAND PATTERN MARKER
--- OUTSIDE RECORDS SUMMARY | 2017-11-06 07:18 | XMS REPORT | Clinical Summary ---
Author Author User, CARLOS Organization [facility] [place] Address Unknown Phone Unavailable Allergies, Adverse Reactions, [...] unspecified sites RECTAL POLYPS 569.0 Active Ling Bneitez Anal and rectal polyp SCREENING MAMMOGRAM NEC [...] MG TAB 1 PO daily TERBINAFINE HCL 45666320999 No Longer Active Ling Benitez KEFLEX 500 MG CAP 1 PO TID for 7 days CEPHALEXIN 56316382809 No Longer Active Ling Benitez POTASSIUM CHLORIDE ER 10 MEQ CR-CAPS 1 PO DAILY POTASSIUM CHLORIDE 17342122602 Active Elly Nuñez [facility] MELATONIN 5 MG TABS 1 po QHS MELATONIN 94310203696 Active Ling Benitez FISH OIL 1000 MG CAPS 1 PO daily OMEGA-3 FATTY ACIDS 61074705947 No Longer Active Ling Benitez ALLOPURINOL 100 MG TABS 1 PO Daily to prevent gout. ALLOPURINOL 17400474312 Active Elly Nuñez OXYCODONE HCL 10 MG TABS 1-2 PO Q4hrs prn OXYCODONE HCL 03436739569 No Longer Active Lingkan Benitez ALEVE 220 MG TAB 2 po qam NAPROXEN SODIUM 95414121793 Active Ling Benitez VALIUM 2 MG TAB 1 PO 1 hr before MRI and may repeat DIAZEPAM 97519990276 No Longer Active Ling Benitez PREDNISONE 20 MG TAB 3 pills daily at once for 2 days, 2 pills daily at once for 2 days, 1 once daily for 2 days PREDNISONE 80610891015 No Longer Active Lingkan Benitez ROBITUSSIN A-C 10-100 MG/5ML SYRUP 1 teaspoon PO Q 4-6 hr prn ROBITUSSIN A-C 10-100 MG/5ML SYRUP No Longer Active Lingkan Benitez TESSALON 200 MG CAPS 1 PO TID prn cough BENZONATATE 85527411332 No Longer Active Lingkan Benitez BIAXIN 500 MG TAB 1 PO BID CLARITHROMYCIN 83084435087 No Longer Active Lingkan Benitez ZOSTAVAX 02482 UNT/0.65ML SOLR 1 injection once to prevent Shingles ZOSTER VACCINE LIVE 58052344261 No Longer Active Lingkan Benitez LASIX 20 MG TAB 1 PO daily FUROSEMIDE 17494676127 Active Elly NICHOLS'Grabiel NASAL SPRAY (DEXAMETHASONE, GENTAMICIN, SALINE) 2 puffs each nostril TID for [address] SEGURA NASAL SPRAY ( DEXAMETHASONE, GENTAMICIN, SALINE) No Longer Active Ling Benitez CHERATUSSIN AC 100-10 MG/5ML SYRP 1 tsp PO Q4hrs prn GUAIFENESIN-CODEINE 50202218877 No Longer Active Lingkan Benitez CIPRO 500 MG TAB 1 PO BID for 7 days CIPROFLOXACIN HCL 62222459303 No Longer Active Ling Benitez VITAMIN D 1000 UNIT TABS 1 PO Daily CHOLECALCIFEROL 60938900767 Active Ling Benitez LOVENOX 40 MG/0.4ML SOLN 1 injection daily to prevent blood clots ENOXAPARIN SODIUM 49156895985 No Longer Active Ling Benitez NORITATE 1 % CREA apply BID METRONIDAZOLE (TOPICAL) 22638172467 No Longer Active Ling Benitez FLEXERIL 10 MG TAB 1 PO QHS CYCLOBENZAPRINE HCL 76230769333 No Longer Active Ling Benitez COUMADIN 3 MG TAB Sig: Take 1 PO QD WARFARIN SODIUM 41458187783 No Longer Active Lingkan Benitez DYAZIDE 37.5-25 MG CAP 1 PO daily (on hold 12/16/07 to evaluate gout recurrance ) TRIAMTERENE-HCTZ 03743975098 No Longer Active Ling Benitez PREDNISONE 20 MG TAB 3 pills daily at once for 2 days, 2 pills daily at once for 2 days, 1 PO daily for 2 days PREDNISONE 33638833779 No Longer Active Ling Benitez COUMADIN 5 MG TABS 1 po on odd days WARFARIN SODIUM 80710081566 No Longer Active Ling Benitez CEPHALEXIN 500 MG CAPS 1 po QID x 7 days CEPHALEXIN 05728134890 No Longer Active Ling Benitez ROBITUSSIN A-C 10-100 MG/5ML SYRUP 1 teaspoon PO Q 4-6 hr prn ROBITUSSIN A-C 10-100 MG/5ML SYRUP 99630735165 No Longer Active Ling Benitez DOXYCYCLINE HYCLATE 100 MG CAP 1 po BID DOXYCYCLINE HYCLATE 71269230874 No Longer Active Ling Benitez PREDNISONE 20 MG TABS 3 PO for 1 day, 2 PO for 2 days and 1 PO for 3 days. PREDNISONE 81046584122 No Longer Active Ling Benitez COLCHICINE 0.6 MG TAB 1 PO Q3hrs prn gout pain. Maximum pills in one day is 8 pills. COLCHICINE Active Riley Rodrigues PREDNISONE 20 MG TAB 3 PO daily for 1 day, then 2 PO daily for 2 days then 1 Po daily for 3 days PREDNISONE 76012276185 No Longer Active Ling Benitez VITAMIN D CAPS (ERGOCALCIFEROL CAPS) 400MG 1 PO daily VITAMIN D CAPS (ERGOCALCIFEROL CAPS) 400MG No Longer Active Ling Benitez PRAVASTATIN SODIUM 40 MG TABS 1 po daily for cholesterol. PRAVASTATIN SODIUM 70886490079 Active Elly Nuñez ZOCOR 40 MG TABS 1 PO daily SIMVASTATIN 37070117997 No Longer Active Ling Benitez BENICAR 20 MG TABS 1 PO QD OLMESARTAN MEDOXOMIL 58461548276 No Longer Active Lingkan Benitez LOTENSIN 40 MG TABS 1 PO daily BENAZEPRIL HCL 48900707758 Active Elly Nuñez NORVASC 10 MG TAB 1 PO QD AMLODIPINE BESYLATE 57869997773 Active Elly Nuñez ROBITUSSIN A-C 10-100 MG/5ML SYRUP 5cc PO Q 4-6 hr prn ROBITUSSIN A-C 10-100 MG/5ML SYRUP 54542164440 No Longer Active Lingkan Benitez LORTAB 5 5-500 MG TABS 1 to 2 PO Q6hrs prn ACETAMINOPHEN- HYDROCODONE 78046128865 No Longer Active Lingkan Benitez ACYCLOVIR 800 MG TABS 1 PO five times a day for 7 days ACYCLOVIR 22939043552 No Longer Active Lingkan Benitez CALTRATE PLUS 600-200 MG-UNIT TABS 1 PO BID OTC CALCIUM CARBONATE-VIT D-MIN 58481662234 Active Lingkan Benitez VYTORIN 10-20 MG TABS 1 PO QAM EZETIMIBE-SIMVASTATIN 73605926119 No Longer Active Elly Nuñez ALEVE 220 MG TABS 2 PO BID prn back pain NAPROXEN SODIUM 85903828971 No Longer Active Lingkan Benitez MICARDIS 80 MG TABS 1 PO daily TELMISARTAN 29733791401 No Longer Active Lingkan Benitez LORTAB 5 5-500 MG TABS 1 q6hrs prn pain HYDROCODONE- ACETAMINOPHEN 73542646560 No Longer Active Lingkan Benitez LOTREL 10-20 MG CAPS 1 po qd AMLODIPINE BESY-BENAZEPRIL HCL 26175475239 No Longer Active Elly Nuñez RETIN-A 0.025 % CREAM apply QD as directed to face TRETINOIN 10932565146 No Longer Active Ling Benitez MAVIK 2 MG TABS 1 po daily TRANDOLAPRIL 51042762232 No Longer Active Ling Benitez CALCIUM 600 MG TABS 1 PO QD OTC CALCIUM 62672831714 No Longer Active Ling Benitez MULTIVITAMINS TABS 1 po daily MULTIPLE VITAMIN 11559584464 Active Ling Benitez ASPIRIN 81 MG TABS 1 po daily ASPIRIN 87467225409 Active Ling Benitez ZOCOR 20 MG TABS 1 po daily SIMVASTATIN 57129608589 No Longer Active Ling Benitez ATENOLOL 100 MG TABS 1 po daily ATENOLOL 31571572043 Active Elly Nuñez HYDROCHLOROTHIAZIDE 50 MG TABS 1 po daily HYDROCHLOROTHIAZIDE 15412172718 No Longer Active Ling Benitez Immunizations Vaccine [...] mL/min/1.73m2 Encounters Code Encounter Date Provider Facility CPT-71694 Ofc Vst, Est Level III 19:27:59 BRII Benitez DO, FAC CPT-89869 Ofc Vst, Est Level IV 14:39:56 CDT Ling Jane Benitez [facility] CPT-65193 Ofc Vst, Est Level III 16:46:27 CDT Ling Jane Spain Emmanuel, DO, FACP CPT-55167 Ofc Vst, Est Level III 19:04:28 CDT Ling Jane Benitez [facility] CPT-37161 Ofc Vst, Est Level IV 16:45:14 CDT Ling Jane Benitez [facility] CPT-93173 Ofc Vst, Est Level III 13:10:29 LINEN TECH Ling Jane [place] Emmanuel, DO, FACP CPT-77132 Ofc Vst, Est Level III 15:45:45 LINEN TECH Ling [place] Emmanuel, DO, FACP CPT-78706 Ofc Vst, Est Level IV 13:57:24 CDT Ling Jane Benitez [facility] CPT-37744 Ofc Vst, Est Level III 14:31:03 CDT Ling Jane Benitez [facility] CPT-66831 Ofc Vst, Est Level IV 15:47:47 LINEN TECH Ling Benitez [facility] CPT-49034 Ofc Vst, Est Level IV 11:13:35 CDT Ling Jane [place] Emmanuel, DO, FACP CPT-14490 Ofc Vst, Est Level IV 10:50:22 CDT Ling Jane [place] Emmanuel, DO, FACP CPT-33509 Ofc Vst, Est Level IV 10:08:22 CDT Ling Jane Dubon S Emmanuel, DO, FACP CPT-26347 Ofc Vst, Est Level IV 10:44:48 CDT Ling Jane [place] Emmanuel, DO, FACP CPT-32476 Ofc Vst, Est Level IV 13:34:31 LINEN TECH Ling Jane [place] Benitez, DO, FACP CPT-82368 Ofc Vst, Est Level IV 09:49:46 LINEN TECH Ling Jane [place] Benitez, DO, FACP CPT-42724 Ofc Vst, Est Level V 10:39:18 LINEN TECH Ling [place] Benitez, DO, FACP CPT-97335 Ofc Vst, Est Level IV 09:31:27 CDT Ling Jane [place] Emmanuel, DO, FACP CPT-00923 Ofc Vst, Est Level III 11:44:08 CDT Ling Jane [place] Benitez, DO, FACP CPT-03294 Ofc Vst, Est Level V 11:29:25 CDT Ling Jane [place] Emmanuel, DO, FACP CPT-14001 Ofc Vst, Est Level V 09:49:50 CDT Ling Jane [place] Emmanuel, DO, FACP CPT-69948 Ofc Vst, Est Level IV 09:50:55 CDT Ling Jane [place] Benitez, DO, FACP CPT-40293 Ofc Vst, Est Level V 14:50:03 CDT Lingkan [place] Emmanuel, DO, FACP CPT-53656 Ofc Vst, Est Level III 10:16:01 LINEN TECH Ling [place] Emmanuel, DO, FACP CPT-90765 Ofc Vst, Est Level V 09:27:45 LINEN TECH Ling Jane [place] Benitez, DO, FACP CPT-42535 Ofc Vst, Est Level IV 16:57:02 CDT Ling Jane Dubon S Emmanuel, DO, FACP CPT-81244 Ofc Vst, Est Level IV 16:14:45 CDT Ling Jane Sapin Emmanuel, DO, FACP CPT-38305 Ofc Vst, Est Level III 12:28:55 CDT Ling Jane [place] Benitez, DO, FACP CPT-65343 Ofc Vst, Est Level IV 16:33:15 CDT Ling Jane [place] Benitez, DO, FACP CPT-45104 Ofc Vst, Est Level IV 09:14:59 CDT Ling Jane Guardadoner, DO, FACP CPT-02974 Ofc Vst, Est Level IV 11:33:57 CDT Ling Jane [place] Benitez, DO, FACP CPT-74586 Ofc Vst, Est Level IV 11:47:04 CDT Lingkan [place] Benitez, DO, FACP CPT-45068 Ofc Vst, Est Level IV 14:26:17 CDT Ling Jane Benitez, DO, FACP CPT-38525 Ofc Vst, Est Level V 15:07:54 LINEN TECH Ling Spain Benitez, DO, FACP CPT-22359 Ofc Vst, Est Level III 15:05:00 LINEN TECH Ling Spain Benitez, DO, FACP CPT-38715 Ofc Vst, Est Level III 14:54:15 CDT Lingkan [place] Benitez, DO, FACP CPT-71995 Ofc Vst, Est Level IV 11:03:28 CDT Ling Jane [place] Benitez, DO, FACP CPT-49267 Ofc Vst, Est Level IV 11:23:17 CDT Ling [place] Benitez, DO, FACP CPT-97596 Ofc Vst, Est Level IV 13:38:42 CDT Ling Jane Benitez [facility] CPT-41418 Ofc Vst, Est Level IV 11:06:18 LINEN TECH Ling Benitez [facility] [place] CPT-51123 Ofc Vst, Est Level III 16:02:00 CDT Lingkan Benitez [facility] [place] CPT-44719 Ofc Vst, Est Level III 13:55:34 CDT Ling Benitez [facility] [place] CPT-06781 Ofc Vst, Est Level IV 10:57:19 CDT Ling Jane Benitez [facility] [place] CPT-72416 Ofc Vst, Est Level IV 10:36:33 LINEN TECH Ling Benitez [facility] [place] CPT-69612 Ofc Vst, Est Level IV 10:32:48 LINEN TECH Ling Benitez [facility] [place] CPT-95410 Ofc Vst, Est Level IV 15:26:49 LINEN TECH Ling Benitez [facility] [place] CPT-62793 Ofc Vst, Est Level IV 11:23:15 CDT Ling Jane Benitez [facility] [place] CPT-09099 Ofc Vst, Est Level IV 10:16:10 CDT Lingkan Benitez [facility] [place] CPT-88186 Ofc Vst, Est Level IV 18:44:39 CDT Ling Benitez [facility] [place] CPT-99805 Ofc Vst, Est Level III 13:15:02 CDT Lingkan Benitez [facility] [place] CPT-73614 Ofc Vst, Est Level IV 12:26:03 LINEN TECH Ling Benitez [facility] [place] CPT-12752 Ofc Vst, Est Level IV 18:06:54 LINEN TECH Ling Benitez [facility] [place] CPT-20603 Ofc Vst, Est Level III 12:46:29 CDT Ling Benitez [facility] [place] CPT-66380 Ofc Vst, Est Level IV 17:21:21 CDT Ling Jane Benitez [facility] [place] CPT-04946 Ofc Vst, Est Level III 15:16:44 CDT Ling Benitez [facility] [place] CPT-33404 Ofc Vst, Est Level II 11:42:02 CDT Ling Benitez [facility] [place] CPT-69911 Ofc Vst, Est Level III 12:09:24 LINEN TECH Ling Benitez [facility] [place] CPT-37451 Ofc Vst, New Level III 13:59:43 LINEN TECH Ling Benitez [facility] [place] Procedures Code Procedure Name Date Entry Date Standard Description CPT-G0439 Medicare Annual Wellness Visit 14:32:15 LINEN TECH CPT-G8443 E-Prescribing Medication Sent 20:53:37 LINEN TECH CPT-G0439 Medicare Annual Wellness Visit 20:53:37 LINEN TECH CPT-G8445 E-Prescribing Not sent due to no medication given 16:46: 27 CDT CPT-G8446 E-Prescribing not done due to controlled substance 19:04 :28 CDT CPT-G8446 E-Prescribing not done due to controlled substance 16:45 :14 CDT CPT-G8446 E-Prescribing not done due to controlled substance 13:10 :29 LINEN TECH CPT-G8446 E-Prescribing not done due to controlled substance 15:45 :45 LINEN TECH CPT-G8443 E-Prescribing Medication Sent 16:25:14 LINEN TECH CPT-G0438 Medicare Annual Wellness Visit Initial 16:25:14 LINEN TECH CPT-8446 E-Prescribing not done due to controlled substance 11:29: 25 CDT CPT-8445 E-Prescribing Not sent due to no medication given 09:50: 55 CDT CPT-8446 E-Prescribing not done due to controlled substance 14:50: 03 CDT CPT-58865 Handling of specimen from office to lab 11:13:16 LINEN TECH CPT-59482 Excision of Malignant lesion 2.1-3.0 cm 11:13:16 LINEN TECH CPT-80257 Injection 12:28:55 CDT CPT-99388 Excision of Benign Lesion 1.1-2.0 cm 14:54:15 CDT 02/25 CPT-43287 Injection, Pneumovax 11:03:28 CDT CPT-33391 Incision & Drainage, simple 12:52:53 LINEN TECH CPT-48751 Cryopathy Skin 18:44:39 CDT CPT-18097 Biopsy, skin/subcut/mucous membrane; sngl lsn 10:32:32 CDT CPT-13187 Cryopathy Skin 17:21:21 CDT CPT-18972 Wound Repair, Superficial 11:42:03 CDT CPT-19185 Preventive, Est, (65+) 11:11:45 LINEN TECH
--- OUTSIDE RECORDS SUMMARY | 2017-11-06 07:19 | XMS REPORT | Clinical Summary ---
Author Author User, CARLOS Organization [facility] [place] Address Unknown Phone Unavailable Allergies, Adverse Reactions, [...] MG TAB 1 PO daily TERBINAFINE HCL [id number] No Longer Active Ling Benitez KEFLEX 500 MG CAP 1 PO TID for 7 days CEPHALEXIN 80555125708 No Longer Active Ling Benitez POTASSIUM CHLORIDE ER 10 MEQ CR-CAPS 1 PO DAILY POTASSIUM CHLORIDE 88696171887 Active Elly Nuñez [facility] MELATONIN 5 MG TABS 1 po QHS MELATONIN 00358741436 Active Ling Benitez FISH OIL 1000 MG CAPS 1 PO daily OMEGA-3 FATTY ACIDS 26693795556 No Longer Active Ling Benitez ALLOPURINOL 100 MG TABS 1 PO Daily to prevent gout. ALLOPURINOL 46608741292 Active Elly Nuñez OXYCODONE HCL 10 MG TABS 1-2 PO Q4hrs prn OXYCODONE HCL 30566614049 No Longer Active Lingkan Benitez ALEVE 220 MG TAB 2 po qam NAPROXEN SODIUM 03400912317 Active Ling Benitez VALIUM 2 MG TAB 1 PO 1 hr before MRI and may repeat DIAZEPAM 08598927728 No Longer Active Ling Benitez PREDNISONE 20 MG TAB 3 pills daily at once for 2 days, 2 pills daily at once for 2 days, 1 once daily for 2 days PREDNISONE 73871179362 No Longer Active Lingkan Benitez ROBITUSSIN A-C 10-100 MG/5ML SYRUP 1 teaspoon PO Q 4-6 hr prn ROBITUSSIN A-C 10-100 MG/5ML SYRUP No Longer Active Lingkan Benitez TESSALON 200 MG CAPS 1 PO TID prn cough BENZONATATE 86578792654 No Longer Active Lingkan Benitez BIAXIN 500 MG TAB 1 PO BID CLARITHROMYCIN 84247024816 No Longer Active Lingkan Benitez ZOSTAVAX 27401 UNT/0.65ML SOLR 1 injection once to prevent Shingles ZOSTER VACCINE LIVE 75603313816 No Longer Active Lingkan Benitez LASIX 20 MG TAB 1 PO daily FUROSEMIDE 79877207680 Active Elly NICHOLS'Grabiel NASAL SPRAY (DEXAMETHASONE, GENTAMICIN, SALINE) 2 puffs each nostril TID for [address] SEGURA NASAL SPRAY ( DEXAMETHASONE, GENTAMICIN, SALINE) No Longer Active Ling Benitez CHERATUSSIN AC 100-10 MG/5ML SYRP 1 tsp PO Q4hrs prn GUAIFENESIN-CODEINE 18161049006 No Longer Active Lingkan Benitez CIPRO 500 MG TAB 1 PO BID for 7 days CIPROFLOXACIN HCL 21079782238 No Longer Active Ling Benitez VITAMIN D 1000 UNIT TABS 1 PO Daily CHOLECALCIFEROL 87981447879 Active Ling Benitez LOVENOX 40 MG/0.4ML SOLN 1 injection daily to prevent blood clots ENOXAPARIN SODIUM 80195559552 No Longer Active Ling Benitez NORITATE 1 % CREA apply BID METRONIDAZOLE (TOPICAL) 41833351744 No Longer Active Ling Benitez FLEXERIL 10 MG TAB 1 PO QHS CYCLOBENZAPRINE HCL 82447236794 No Longer Active Ling Benitez COUMADIN 3 MG TAB Sig: Take 1 PO QD WARFARIN SODIUM 34144255936 No Longer Active Lingkan Benitez DYAZIDE 37.5-25 MG CAP 1 PO daily (on hold 12/16/07 to evaluate gout recurrance ) TRIAMTERENE-HCTZ 67561195117 No Longer Active Ling Benitez PREDNISONE 20 MG TAB 3 pills daily at once for 2 days, 2 pills daily at once for 2 days, 1 PO daily for 2 days PREDNISONE 82776337299 No Longer Active Ling Benitez COUMADIN 5 MG TABS 1 po on odd days WARFARIN SODIUM 41741277291 No Longer Active Ling Benitez CEPHALEXIN 500 MG CAPS 1 po QID x 7 days CEPHALEXIN 21212924809 No Longer Active Ling Benitez ROBITUSSIN A-C 10-100 MG/5ML SYRUP 1 teaspoon PO Q 4-6 hr prn ROBITUSSIN A-C 10-100 MG/5ML SYRUP 48236484983 No Longer Active Ling Benitez DOXYCYCLINE HYCLATE 100 MG CAP 1 po BID DOXYCYCLINE HYCLATE 43500968562 No Longer Active Ling Benitez PREDNISONE 20 MG TABS 3 PO for 1 day, 2 PO for 2 days and 1 PO for 3 days. PREDNISONE 71715848991 No Longer Active Ling Benitez COLCHICINE 0.6 MG TAB 1 PO Q3hrs prn gout pain. Maximum pills in one day is 8 pills. COLCHICINE Active Riley Rodrigues PREDNISONE 20 MG TAB 3 PO daily for 1 day, then 2 PO daily for 2 days then 1 Po daily for 3 days PREDNISONE 65167107261 No Longer Active Ling Benitez VITAMIN D CAPS (ERGOCALCIFEROL CAPS) 400MG 1 PO daily VITAMIN D CAPS (ERGOCALCIFEROL CAPS) 400MG No Longer Active Ling Benitez PRAVASTATIN SODIUM 40 MG TABS 1 po daily for cholesterol. PRAVASTATIN SODIUM 93443229611 Active Elly Nuñez ZOCOR 40 MG TABS 1 PO daily SIMVASTATIN 99772430374 No Longer Active Ling Benitez BENICAR 20 MG TABS 1 PO QD OLMESARTAN MEDOXOMIL 16168922875 No Longer Active Lingkan Benitez LOTENSIN 40 MG TABS 1 PO daily BENAZEPRIL HCL 06346519687 Active Elly Nuñez NORVASC 10 MG TAB 1 PO QD AMLODIPINE BESYLATE 29494624398 Active Elly Nuñez ROBITUSSIN A-C 10-100 MG/5ML SYRUP 5cc PO Q 4-6 hr prn ROBITUSSIN A-C 10-100 MG/5ML SYRUP 59591245116 No Longer Active Lingkan Benitez LORTAB 5 5-500 MG TABS 1 to 2 PO Q6hrs prn ACETAMINOPHEN- HYDROCODONE 23816198448 No Longer Active Lingkan Benitez ACYCLOVIR 800 MG TABS 1 PO five times a day for 7 days ACYCLOVIR 75530409339 No Longer Active Lingkan Benitez CALTRATE PLUS 600-200 MG-UNIT TABS 1 PO BID OTC CALCIUM CARBONATE-VIT D-MIN 62723327763 Active Lingkan Benitez VYTORIN 10-20 MG TABS 1 PO QAM EZETIMIBE-SIMVASTATIN 83209778670 No Longer Active Elly Nuñez ALEVE 220 MG TABS 2 PO BID prn back pain NAPROXEN SODIUM 20847949966 No Longer Active Lingkan Benitez MICARDIS 80 MG TABS 1 PO daily TELMISARTAN 17993843095 No Longer Active Lingkan Benitez LORTAB 5 5-500 MG TABS 1 q6hrs prn pain HYDROCODONE- ACETAMINOPHEN 95311178008 No Longer Active Lingkan Benitez LOTREL 10-20 MG CAPS 1 po qd AMLODIPINE BESY-BENAZEPRIL HCL 99603441029 No Longer Active Elly Nuñez RETIN-A 0.025 % CREAM apply QD as directed to face TRETINOIN 01546858052 No Longer Active Ling Benitez MAVIK 2 MG TABS 1 po daily TRANDOLAPRIL 08049613010 No Longer Active Ling Benitez CALCIUM 600 MG TABS 1 PO QD OTC CALCIUM 82040493163 No Longer Active Ling Benitez MULTIVITAMINS TABS 1 po daily MULTIPLE VITAMIN 39575832875 Active Ling Benitez ASPIRIN 81 MG TABS 1 po daily ASPIRIN 69015722787 Active Ling Benitez ZOCOR 20 MG TABS 1 po daily SIMVASTATIN 76127872231 No Longer Active Ling Benitez ATENOLOL 100 MG TABS 1 po daily ATENOLOL 89293603516 Active Elly Nuñez HYDROCHLOROTHIAZIDE 50 MG TABS 1 po daily HYDROCHLOROTHIAZIDE 13554936363 No Longer Active Ling Benitez Immunizations Vaccine [...] mL/min/1.73m2 Encounters Code Encounter Date Provider Facility CPT-68224 Ofc Vst, Est Level III 19:27:59 BRII Benitez DO, FAC CPT-30915 Ofc Vst, Est Level IV 14:39:56 CDT Ling Jane Benitez [facility] CPT-42171 Ofc Vst, Est Level III 16:46:27 CDT Ling Jane Spain Emmanuel, DO, FACP CPT-09999 Ofc Vst, Est Level III 19:04:28 CDT Ling Jane [facility]itez [facility] CPT-93441 Ofc Vst, Est Level IV 16:45:14 CDT Ling Jane Benitez [facility] CPT-51334 Ofc Vst, Est Level III 13:10:29 [employer] Ling Jane Spain Emmanuel, DO, FACP CPT-09531 Ofc Vst, Est Level III 15:45:45 [facility] Ling [place] Emmanuel, DO, FACP CPT-86880 Ofc Vst, Est Level IV 13:57:24 CDT Ling Jane Benitez [facility] CPT-25348 Ofc Vst, Est Level III 14:31:03 CDT Ling Jane Benitez [facility] CPT-37958 Ofc Vst, Est Level IV 15:47:47 [facility] [employer] Ling Benitez [facility] CPT-80241 Ofc Vst, Est Level IV 11:13:35 CDT Ling Jane [place] Emmanuel, DO, FACP CPT-93282 Ofc Vst, Est Level IV 10:50:22 CDT Ling Jane [place] Emmanuel, DO, FACP CPT-05006 Ofc Vst, Est Level IV 10:08:22 CDT Ling Jane Dubon S Emmanuel, DO, FACP CPT-20765 Ofc Vst, Est Level IV 10:44:48 CDT Ling Jane [place] Emmanuel, DO, FACP CPT-97050 Ofc Vst, Est Level IV 13:34:31 [employer] Ling Jane Spain Benitez, DO, FACP CPT-94367 Ofc Vst, Est Level IV 09:49:46 [employer] Ling Jane [place] Benitez, DO, FACP CPT-43790 Ofc Vst, Est Level V 10:39:18 [employer] Ling Spain Benitez, DO, FACP CPT-89962 Ofc Vst, Est Level IV 09:31:27 CDT Ling Jane [place] Emmanuel, DO, FACP CPT-46213 Ofc Vst, Est Level III 11:44:08 CDT Ling Jane [place] Benitez, DO, FACP CPT-01980 Ofc Vst, Est Level V 11:29:25 CDT Ling Jane [place] Emmanuel, DO, FACP CPT-85405 Ofc Vst, Est Level V 09:49:50 CDT Ling Jane [place] Emmanuel, DO, FACP CPT-28445 Ofc Vst, Est Level IV 09:50:55 CDT Ling Jane Spani Benitez, DO, FACP CPT-53272 Ofc Vst, Est Level V 14:50:03 CDT Lingkan [place] Emmanuel, DO, FACP CPT-16398 Ofc Vst, Est Level III 10:16:01 [employer] Ling [place] Emmanuel, DO, FACP CPT-54978 Ofc Vst, Est Level V 09:27:45 [employer] Ling Jane Spain Benitez, DO, FACP CPT-54803 Ofc Vst, Est Level IV 16:57:02 CDT Ling Jane Dubon S Emmanuel, DO, FACP CPT-32951 Ofc Vst, Est Level IV 16:14:45 CDT Ling Jane [place] Emmanuel, DO, FACP CPT-57503 Ofc Vst, Est Level III 12:28:55 CDT Ling Jane Spain Benitez, DO, FACP CPT-61312 Ofc Vst, Est Level IV 16:33:15 CDT Ling Jane Spain Benitez, DO, FACP CPT-55538 Ofc Vst, Est Level IV 09:14:59 CDT Ling Jane Guardadoner, DO, FACP CPT-53266 Ofc Vst, Est Level IV 11:33:57 CDT Ling Jane Spain Benitez, DO, FACP CPT-15266 Ofc Vst, Est Level IV 11:47:04 CDT Lingkan Spain Benitez, DO, FACP CPT-42851 Ofc Vst, Est Level IV 14:26:17 CDT Ling Jane Benitez, DO, FACP CPT-50650 Ofc Vst, Est Level V 15:07:54 [employer] Ling Spain Benitez, DO, FACP CPT-25283 Ofc Vst, Est Level III 15:05:00 [employer] Ling Spain Benitez, DO, FACP CPT-41285 Ofc Vst, Est Level III 14:54:15 CDT Lingkan Spain Benitez, DO, FACP CPT-93401 Ofc Vst, Est Level IV 11:03:28 CDT Ling Jane Spain Benitez, DO, FACP CPT-95082 Ofc Vst, Est Level IV 11:23:17 CDT Ling Spain Benitez, DO, FACP CPT-12438 Ofc Vst, Est Level IV 13:38:42 CDT Ling Jane Benitez [facility] CPT-31613 Ofc Vst, Est Level IV 11:06:18 [employer] Ling Benitez [facility] [place] CPT-36313 Ofc Vst, Est Level III 16:02:00 CDT Lingkan Benitez [facility] [place] CPT-46871 Ofc Vst, Est Level III 13:55:34 CDT Ling Benitez [facility] [place] CPT-75410 Ofc Vst, Est Level IV 10:57:19 CDT Ling Jane Benitez [facility] [place] CPT-26651 Ofc Vst, Est Level IV 10:36:33 [employer] Ling Benitez [facility] [place] CPT-66942 Ofc Vst, Est Level IV 10:32:48 [employer] Ling Benitez [facility] [place] CPT-24200 Ofc Vst, Est Level IV 15:26:49 [employer] Ling Benitez [facility] [place] CPT-79967 Ofc Vst, Est Level IV 11:23:15 CDT Ling Jane Benitez [facility] [place] CPT-20832 Ofc Vst, Est Level IV 10:16:10 CDT Lingkan Benitez [facility] [place] CPT-83675 Ofc Vst, Est Level IV 18:44:39 CDT Ling Benitez [facility] [place] CPT-11484 Ofc Vst, Est Level III 13:15:02 CDT Lingkan Benitez [facility] [place] CPT-79668 Ofc Vst, Est Level IV 12:26:03 [employer] Ling Benitez [facility] [place] CPT-18082 Ofc Vst, Est Level IV 18:06:54 [employer] Ling Benitez [facility] [place] CPT-06479 Ofc Vst, Est Level III 12:46:29 CDT Ling Benitez [facility] [place] CPT-75795 Ofc Vst, Est Level IV 17:21:21 CDT Ling Jane Benitez [facility] [place] CPT-41394 Ofc Vst, Est Level III 15:16:44 CDT Ling Benitez [facility] [place] CPT-28301 Ofc Vst, Est Level II 11:42:02 CDT Ling Benitez [facility] [place] CPT-66910 Ofc Vst, Est Level III 12:09:24 [employer] Ling Benitez [facility] [place] CPT-89994 Ofc Vst, New Level III 13:59:43 [employer] Ling Benitez [facility] [place] Procedures Code Procedure Name Date Entry Date Standard Description CPT-G0439 Medicare Annual Wellness Visit 14:32:15 [employer] CPT-G8443 E-Prescribing Medication Sent 20:53:37 [employer] CPT-G0439 Medicare Annual Wellness Visit 20:53:37 [employer] CPT-G8445 E-Prescribing Not sent due to no medication given 16:46: 27 CDT CPT-G8446 E-Prescribing not done due to controlled substance 19:04 :28 CDT CPT-G8446 E-Prescribing not done due to controlled substance 16:45 :14 CDT CPT-G8446 E-Prescribing not done due to controlled substance 13:10 :29 [employer] CPT-G8446 E-Prescribing not done due to controlled substance 15:45 :45 [employer] CPT-G8443 E-Prescribing Medication Sent 16:25:14 [employer] CPT-G0438 Medicare Annual Wellness Visit Initial 16:25:14 [employer] CPT-8446 E-Prescribing not done due to controlled substance 11:29: 25 CDT CPT-8445 E-Prescribing Not sent due to no medication given 09:50: 55 CDT CPT-8446 E-Prescribing not done due to controlled substance 14:50: 03 CDT CPT-65839 Handling of specimen from office to lab 11:13:16 [employer] CPT-64139 Excision of Malignant lesion 2.1-3.0 cm 11:13:16 [employer] CPT-08641 Injection 12:28:55 CDT CPT-44862 Excision of Benign Lesion 1.1-2.0 cm 14:54:15 CDT 02/25 CPT-38523 Injection, Pneumovax 11:03:28 CDT CPT-74935 Incision & Drainage, simple 12:52:53 [employer] CPT-92952 Cryopathy Skin 18:44:39 CDT CPT-15336 Biopsy, skin/subcut/mucous membrane; sngl lsn 10:32:32 CDT CPT-64048 Cryopathy Skin 17:21:21 CDT CPT-97837 Wound Repair, Superficial 11:42:03 CDT CPT-93581 Preventive, Est, (65+) 11:11:45 [employer]
--- OUTSIDE RECORDS SUMMARY | 2017-11-06 07:20 | XMS REPORT | Clinical Summary ---
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 Ling Bneitez Rosacea CARCINOMA, BASAL CELL, SKIN 232.9 Resolved [...] in breast BREAST MASS, RIGHT 611.72 Resolved Lnig Benitez Lump or mass in breast COUGH [...] MG TAB 1 PO daily TERBINAFINE HCL 32691980678 No Longer Active Ling Benitez KEFLEX 500 MG CAP 1 PO TID for 7 days CEPHALEXIN 55820977903 No Longer Active Ling Benitez POTASSIUM CHLORIDE ER 10 MEQ CR-CAPS 1 PO DAILY POTASSIUM CHLORIDE 18816229644 Active Elly Nuñez [facility] MELATONIN 5 MG TABS 1 po QHS MELATONIN 60783606233 Active Ling Benitez FISH OIL 1000 MG CAPS 1 PO daily OMEGA-3 FATTY ACIDS 75658567350 No Longer Active Ling Benitez ALLOPURINOL 100 MG TABS 1 PO Daily to prevent gout. ALLOPURINOL 69277779050 Active Elly Nuñez OXYCODONE HCL 10 MG TABS 1-2 PO Q4hrs prn OXYCODONE HCL 96965511262 No Longer Active Lingkan Benitez ALEVE 220 MG TAB 2 po qam NAPROXEN SODIUM 07043720269 Active Ling Benitez VALIUM 2 MG TAB 1 PO 1 hr before MRI and may repeat DIAZEPAM 67594430093 No Longer Active Ling Benitez PREDNISONE 20 MG TAB 3 pills daily at once for 2 days, 2 pills daily at once for 2 days, 1 once daily for 2 days PREDNISONE 17031808619 No Longer Active Lingkan Benitez ROBITUSSIN A-C 10-100 MG/5ML SYRUP 1 teaspoon PO Q 4-6 hr prn ROBITUSSIN A-C 10-100 MG/5ML SYRUP No Longer Active Lingkan Benitez TESSALON 200 MG CAPS 1 PO TID prn cough BENZONATATE 44360670170 No Longer Active Lnigkan Benitez BIAXIN 500 MG TAB 1 PO BID CLARITHROMYCIN 40544854604 No Longer Active Lingkan Benitez ZOSTAVAX 85887 UNT/0.65ML SOLR 1 injection once to prevent Shingles ZOSTER VACCINE LIVE 06741291300 No Longer Active Lingkan Benitez LASIX 20 MG TAB 1 PO daily FUROSEMIDE 60414442717 Active Elly NICHOLS'Grabiel NASAL SPRAY (DEXAMETHASONE, GENTAMICIN, SALINE) 2 puffs each nostril TID for [address] SEGURA NASAL SPRAY ( DEXAMETHASONE, GENTAMICIN, SALINE) No Longer Active Ling Benitez CHERATUSSIN AC 100-10 MG/5ML SYRP 1 tsp PO Q4hrs prn GUAIFENESIN-CODEINE 06313813969 No Longer Active Lingkan Benitez CIPRO 500 MG TAB 1 PO BID for 7 days CIPROFLOXACIN HCL 90155387462 No Longer Active Ling Benitez VITAMIN D 1000 UNIT TABS 1 PO Daily CHOLECALCIFEROL 92437771539 Active Ling Benitez LOVENOX 40 MG/0.4ML SOLN 1 injection daily to prevent blood clots ENOXAPARIN SODIUM 45872825452 No Longer Active Ling Benitez NORITATE 1 % CREA apply BID METRONIDAZOLE (TOPICAL) 63013515750 No Longer Active Ling Benitez FLEXERIL 10 MG TAB 1 PO QHS CYCLOBENZAPRINE HCL 67823969219 No Longer Active Ling Benitez COUMADIN 3 MG TAB Sig: Take 1 PO QD WARFARIN SODIUM 85495058803 No Longer Active Lingkan Benitez DYAZIDE 37.5-25 MG CAP 1 PO daily (on hold 12/16/07 to evaluate gout recurrance ) TRIAMTERENE-HCTZ 84617826743 No Longer Active Ling Benitez PREDNISONE 20 MG TAB 3 pills daily at once for 2 days, 2 pills daily at once for 2 days, 1 PO daily for 2 days PREDNISONE 92999274872 No Longer Active Ling Benitez COUMADIN 5 MG TABS 1 po on odd days WARFARIN SODIUM 79994443135 No Longer Active Ling Benitez CEPHALEXIN 500 MG CAPS 1 po QID x 7 days CEPHALEXIN 27053067809 No Longer Active Ling Benitez ROBITUSSIN A-C 10-100 MG/5ML SYRUP 1 teaspoon PO Q 4-6 hr prn ROBITUSSIN A-C 10-100 MG/5ML SYRUP 34649194779 No Longer Active Ling Benitez DOXYCYCLINE HYCLATE 100 MG CAP 1 po BID DOXYCYCLINE HYCLATE 16531705526 No Longer Active Ling Benitez PREDNISONE 20 MG TABS 3 PO for 1 day, 2 PO for 2 days and 1 PO for 3 days. PREDNISONE 88516775027 No Longer Active Ling Benitez COLCHICINE 0.6 MG TAB 1 PO Q3hrs prn gout pain. Maximum pills in one day is 8 pills. COLCHICINE Active Riley Rodrigues PREDNISONE 20 MG TAB 3 PO daily for 1 day, then 2 PO daily for 2 days then 1 Po daily for 3 days PREDNISONE 25627954958 No Longer Active Ling Benitez VITAMIN D CAPS (ERGOCALCIFEROL CAPS) 400MG 1 PO daily VITAMIN D CAPS (ERGOCALCIFEROL CAPS) 400MG No Longer Active Ling Benitez PRAVASTATIN SODIUM 40 MG TABS 1 po daily for cholesterol. PRAVASTATIN SODIUM 63229662449 Active Elly Nuñez ZOCOR 40 MG TABS 1 PO daily SIMVASTATIN 61982493575 No Longer Active Ling Benitez BENICAR 20 MG TABS 1 PO QD OLMESARTAN MEDOXOMIL 18988585027 No Longer Active Lingkan Benitez LOTENSIN 40 MG TABS 1 PO daily BENAZEPRIL HCL 04198296695 Active Elly Nuñez NORVASC 10 MG TAB 1 PO QD AMLODIPINE BESYLATE 92208096691 Active Elly Nuñez ROBITUSSIN A-C 10-100 MG/5ML SYRUP 5cc PO Q 4-6 hr prn ROBITUSSIN A-C 10-100 MG/5ML SYRUP 45788251910 No Longer Active Lingkan Benitez LORTAB 5 5-500 MG TABS 1 to 2 PO Q6hrs prn ACETAMINOPHEN- HYDROCODONE 11999041121 No Longer Active Lingkan Benitez ACYCLOVIR 800 MG TABS 1 PO five times a day for 7 days ACYCLOVIR 81953495631 No Longer Active Lingkan Benitez CALTRATE PLUS 600-200 MG-UNIT TABS 1 PO BID OTC CALCIUM CARBONATE-VIT D-MIN 01162400980 Active Lingkan Benitez VYTORIN 10-20 MG TABS 1 PO QAM EZETIMIBE-SIMVASTATIN 89040382009 No Longer Active Elly Nuñez ALEVE 220 MG TABS 2 PO BID prn back pain NAPROXEN SODIUM 98175067230 No Longer Active Lingkan Benitez MICARDIS 80 MG TABS 1 PO daily TELMISARTAN 01547346707 No Longer Active Lingkan Benitez LORTAB 5 5-500 MG TABS 1 q6hrs prn pain HYDROCODONE- ACETAMINOPHEN 06351852768 No Longer Active Lingkan Benitez LOTREL 10-20 MG CAPS 1 po qd AMLODIPINE BESY-BENAZEPRIL HCL 96502004762 No Longer Active Elly Nuñez RETIN-A 0.025 % CREAM apply QD as directed to face TRETINOIN 38676972823 No Longer Active Ling Benitez MAVIK 2 MG TABS 1 po daily TRANDOLAPRIL 28129923985 No Longer Active Ling Benitez CALCIUM 600 MG TABS 1 PO QD OTC CALCIUM 16619754186 No Longer Active Ling Benitez MULTIVITAMINS TABS 1 po daily MULTIPLE VITAMIN 30152275438 Active Ling Benitez ASPIRIN 81 MG TABS 1 po daily ASPIRIN 11979161796 Active Ling Benitez ZOCOR 20 MG TABS 1 po daily SIMVASTATIN 48922403769 No Longer Active Ling Benitez ATENOLOL 100 MG TABS 1 po daily ATENOLOL 99693352119 Active Elly Nuñez HYDROCHLOROTHIAZIDE 50 MG TABS 1 po daily HYDROCHLOROTHIAZIDE 40778183906 No Longer Active Ling Benitez Immunizations Vaccine [...] mL/min/1.73m2 Encounters Code Encounter Date Provider Facility CPT-97110 Ofc Vst, Est Level III 19:27:59 BRII Benitez DO, FAC CPT-70906 Ofc Vst, Est Level IV 14:39:56 CDT Ling Jane Benitez [facility] CPT-95394 Ofc Vst, Est Level III 16:46:27 CDT Ling Jane Spain Emmanuel, DO, FACP CPT-41388 Ofc Vst, Est Level III 19:04:28 CDT Ling Jane Benietz [facility] CPT-75122 Ofc Vst, Est Level IV 16:45:14 CDT Ling Jane Benitez [place] CPT-37287 Ofc Vst, Est Level III 13:10:29 [facility] Ling Jane [place] Emmanuel, DO, FACP CPT-75568 Ofc Vst, Est Level III 15:45:45 [facility] Ling [place] Emmanuel, DO, FACP CPT-86820 Ofc Vst, Est Level IV 13:57:24 CDT Ling Jane Benitez [facility] CPT-89509 Ofc Vst, Est Level III 14:31:03 CDT Ling Jane Benitez [facility] CPT-14538 Ofc Vst, Est Level IV 15:47:47 [facility] Ling Benitez [facility] CPT-57003 Ofc Vst, Est Level IV 11:13:35 CDT Ling Jane [place] Emmanuel, DO, FACP CPT-72533 Ofc Vst, Est Level IV 10:50:22 CDT Ling Jane [place] Emmanuel, DO, FACP CPT-76554 Ofc Vst, Est Level IV 10:08:22 CDT Ling Jane Dubon S Emmanuel, DO, FACP CPT-02755 Ofc Vst, Est Level IV 10:44:48 CDT Ling Jane [place] Emmanuel, DO, FACP CPT-84433 Ofc Vst, Est Level IV 13:34:31 [employer] Ling Jane Spain Benitez, DO, FACP CPT-25119 Ofc Vst, Est Level IV 09:49:46 [employer] Ling Jane Spain Benitez, DO, FACP CPT-97473 Ofc Vst, Est Level V 10:39:18 [employer] Ling [place] Benitez, DO, FACP CPT-87988 Ofc Vst, Est Level IV 09:31:27 CDT Ling Jane [place] Emmanuel, DO, FACP CPT-81085 Ofc Vst, Est Level III 11:44:08 CDT Ling Jane Spain Benitez, DO, FACP CPT-23280 Ofc Vst, Est Level V 11:29:25 CDT Ling Jane [place] Emmanuel, DO, FACP CPT-37378 Ofc Vst, Est Level V 09:49:50 CDT Ling Jane [place] Emmanuel, DO, FACP CPT-00522 Ofc Vst, Est Level IV 09:50:55 CDT Ling Jane Spain Benitez, DO, FACP CPT-00593 Ofc Vst, Est Level V 14:50:03 CDT Lingkan [place] Emmanuel, DO, FACP CPT-65905 Ofc Vst, Est Level III 10:16:01 [employer] [place] Ling [place] Emmanuel, DO, FACP CPT-08649 Ofc Vst, Est Level V 09:27:45 [employer] Ling Jane Spain Benitez, DO, FACP CPT-40389 Ofc Vst, Est Level IV 16:57:02 CDT Ling Jane Dubon S Emmanuel, DO, FACP CPT-65797 Ofc Vst, Est Level IV 16:14:45 CDT Ling Jane [place] Emmanuel, DO, FACP CPT-69401 Ofc Vst, Est Level III 12:28:55 CDT Ling Jane Spain Bentiez, DO, FACP CPT-61188 Ofc Vst, Est Level IV 16:33:15 CDT Ling Jane Spain Benitez, DO, FACP CPT-02824 Ofc Vst, Est Level IV 09:14:59 CDT Ling Jane Guardadoner, DO, FACP CPT-61574 Ofc Vst, Est Level IV 11:33:57 CDT Ling Jane Spain Benitez, DO, FACP CPT-28432 Ofc Vst, Est Level IV 11:47:04 CDT Lingkan Spain Benitez, DO, FACP CPT-64223 Ofc Vst, Est Level IV 14:26:17 CDT Ling Jane Benitez, DO, FACP CPT-79741 Ofc Vst, Est Level V 15:07:54 [employer] Ling [place] Benitez, DO, FACP CPT-59227 Ofc Vst, Est Level III 15:05:00 [employer] Ling Spain Benitez, DO, FACP CPT-09729 Ofc Vst, Est Level III 14:54:15 CDT Lingkan Spain Benitez, DO, FACP CPT-29651 Ofc Vst, Est Level IV 11:03:28 CDT Ling Jane Spain Benitez, DO, FACP CPT-87046 Ofc Vst, Est Level IV 11:23:17 CDT Lnig Spain Benitez, DO, FACP CPT-09130 Ofc Vst, Est Level IV 13:38:42 CDT Ling Jane Benitez [facility] CPT-31492 Ofc Vst, Est Level IV 11:06:18 [employer] Ling Benitez [facility] CPT-08410 Ofc Vst, Est Level III 16:02:00 CDT Lingkan Benitez [facility] CPT-18105 Ofc Vst, Est Level III 13:55:34 CDT Ling Benitez [facility] CPT-70054 Ofc Vst, Est Level IV 10:57:19 CDT Ling Jaen Benitez [facility] CPT-99008 Ofc Vst, Est Level IV 10:36:33 [employer] [facility] Ling Benitez [facility] CPT-49323 Ofc Vst, Est Level IV 10:32:48 [employer] Ling Benitez [facility] CPT-75287 Ofc Vst, Est Level IV 15:26:49 [employer] Ling Benitez [facility] CPT-37441 Ofc Vst, Est Level IV 11:23:15 CDT Ling Jane Benitez [facility] CPT-83874 Ofc Vst, Est Level IV 10:16:10 CDT Lingkan Benitez [facility] CPT-47108 Ofc Vst, Est Level IV 18:44:39 CDT Ling Benitez [facility] CPT-58642 Ofc Vst, Est Level III 13:15:02 CDT Lingkan Benitez [facility] CPT-19664 Ofc Vst, Est Level IV 12:26:03 [employer] Ling Benitez [facility] CPT-94815 Ofc Vst, Est Level IV 18:06:54 [employer] Ling Benitez [facility] CPT-68442 Ofc Vst, Est Level III 12:46:29 CDT Ling Benitez [facility] CPT-68367 Ofc Vst, Est Level IV 17:21:21 CDT Ling Jane Benitez [facility] CPT-62131 Ofc Vst, Est Level III 15:16:44 CDT Ling Benitez [facility] CPT-30849 Ofc Vst, Est Level II 11:42:02 CDT Ling Benitez [facility] CPT-19984 Ofc Vst, Est Level III 12:09:24 [employer] Ling Benitez [facility] CPT-97635 Ofc Vst, New Level III 13:59:43 [employer] Ling Benitez [facility] Procedures Code Procedure Name Date Entry Date Standard Description CPT-G0439 Medicare Annual Wellness Visit 14:32:15 [employer] CPT-G8443 E-Prescribing Medication Sent 20:53:37 [employer] CPT-G0439 Medicare Annual Wellness Visit 20:53:37 [employer] CPT-G8445 E-Prescribing Not sent due to no medication given 16:46: 27 CDT CPT-G8446 E-Prescribing not done due to controlled substance 19:04 :28 CDT CPT-G8446 E-Prescribing not done due to controlled substance 16:45 :14 CDT CPT-G8446 E-Prescribing not done due to controlled substance 13:10 :29 [employer] CPT-G8446 E-Prescribing not done due to controlled substance 15:45 :45 [employer] CPT-G8443 E-Prescribing Medication Sent 16:25:14 [employer] CPT-G0438 Medicare Annual Wellness Visit Initial 16:25:14 [employer] CPT-8446 E-Prescribing not done due to controlled substance 11:29: 25 CDT CPT-8445 E-Prescribing Not sent due to no medication given 09:50: 55 CDT CPT-8446 E-Prescribing not done due to controlled substance 14:50: 03 CDT CPT-72361 Handling of specimen from office to lab 11:13:16 [employer] CPT-33983 Excision of Malignant lesion 2.1-3.0 cm 11:13:16 [employer] CPT-81124 Injection 12:28:55 CDT CPT-35753 Excision of Benign Lesion 1.1-2.0 cm 14:54:15 CDT 02/25 CPT-40869 Injection, Pneumovax 11:03:28 CDT CPT-34392 Incision & Drainage, simple 12:52:53 [employer] CPT-05786 Cryopathy Skin 18:44:39 CDT CPT-06319 Biopsy, skin/subcut/mucous membrane; sngl lsn 10:32:32 CDT CPT-46067 Cryopathy Skin 17:21:21 CDT CPT-61522 Wound Repair, Superficial 11:42:03 CDT CPT-41445 Preventive, Est, (65+) 11:11:45 [employer] [place]
--- OUTSIDE RECORDS SUMMARY | 2017-11-06 07:21 | XMS REPORT ---
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 Lnig Benitez Other lymphedema CELLULITIS 682.9 Active Ling Benitez Cellulitis and abscess of unspecified sites Medication List Medication Instructions Start Date Stop Date Generic Name NDC Status Provider Patient Instruction LAMISIL 250 MG TAB 1 PO daily TERBINAFINE HCL 41641806761 No Longer Active Ling Benitez KEFLEX 500 MG CAP 1 PO TID for 7 days CEPHALEXIN 22576160290 No Longer Active Ling Benitez POTASSIUM CHLORIDE ER 10 MEQ CR-CAPS 1 PO DAILY POTASSIUM CHLORIDE 29348240329 Active Elly Nuñez [facility] MELATONIN 5 MG TABS 1 po QHS MELATONIN 95117583712 Active Ling Benitez FISH OIL 1000 MG CAPS 1 PO daily OMEGA-3 FATTY ACIDS 80754233716 No Longer Active Ling Benitez ALLOPURINOL 100 MG TABS 1 PO Daily to prevent gout. ALLOPURINOL 60383860615 Active Elly Nuñez OXYCODONE HCL 10 MG TABS 1-2 PO Q4hrs prn OXYCODONE HCL 79548971830 No Longer Active Lingkan Benitez ALEVE 220 MG TAB 2 po qam NAPROXEN SODIUM 95346452807 Active Ling Benitez VALIUM 2 MG TAB 1 PO 1 hr before MRI and may repeat DIAZEPAM 56555918086 No Longer Active iLng Benitez PREDNISONE 20 MG TAB 3 pills daily at once for 2 days, 2 pills daily at once for 2 days, 1 once daily for 2 days PREDNISONE 32046490608 No Longer Active Lingkan Benitez ROBITUSSIN A-C 10-100 MG/5ML SYRUP 1 teaspoon PO Q 4-6 hr prn ROBITUSSIN A-C 10-100 MG/5ML SYRUP No Longer Active Lingkan Benitez TESSALON 200 MG CAPS 1 PO TID prn cough BENZONATATE 51723220438 No Longer Active Lingkan Benitez BIAXIN 500 MG TAB 1 PO BID CLARITHROMYCIN 53608551485 No Longer Active Lingkan Benitez ZOSTAVAX 18598 UNT/0.65ML SOLR 1 injection once to prevent Shingles ZOSTER VACCINE LIVE 22933619370 No Longer Active Lingkan Benitez LASIX 20 MG TAB 1 PO daily FUROSEMIDE 03652383162 Active Elly NICHOLS'Grabiel NASAL SPRAY (DEXAMETHASONE, GENTAMICIN, SALINE) 2 puffs each nostril TID for [address] SEGURA NASAL SPRAY ( DEXAMETHASONE, GENTAMICIN, SALINE) No Longer Active Ling Benitez CHERATUSSIN AC 100-10 MG/5ML SYRP 1 tsp PO Q4hrs prn GUAIFENESIN-CODEINE 77804013591 No Longer Active Lingkan Benitez CIPRO 500 MG TAB 1 PO BID for 7 days CIPROFLOXACIN HCL 78640559389 No Longer Active Ling Benitez VITAMIN D 1000 UNIT TABS 1 PO Daily CHOLECALCIFEROL 62659951490 Active Ling Benitze LOVENOX 40 MG/0.4ML SOLN 1 injection daily to prevent blood clots ENOXAPARIN SODIUM 91636540559 No Longer Active Ling Benitez NORITATE 1 % CREA apply BID METRONIDAZOLE (TOPICAL) 85858429319 No Longer Active Ling Benitez FLEXERIL 10 MG TAB 1 PO QHS CYCLOBENZAPRINE HCL 01214688066 No Longer Active Ling Benitez COUMADIN 3 MG TAB Sig: Take 1 PO QD WARFARIN SODIUM 24824103990 No Longer Active Lingkan Benitez DYAZIDE 37.5-25 MG CAP 1 PO daily (on hold 12/16/07 to evaluate gout recurrance ) TRIAMTERENE-HCTZ 48648230468 No Longer Active Ling Benitez PREDNISONE 20 MG TAB 3 pills daily at once for 2 days, 2 pills daily at once for 2 days, 1 PO daily for 2 days PREDNISONE 51132038076 No Longer Active Ling Benitez COUMADIN 5 MG TABS 1 po on odd days WARFARIN SODIUM 39745118350 No Longer Active Ling Benitez CEPHALEXIN 500 MG CAPS 1 po QID x 7 days CEPHALEXIN 49940259212 No Longer Active Ling Benitez ROBITUSSIN A-C 10-100 MG/5ML SYRUP 1 teaspoon PO Q 4-6 hr prn ROBITUSSIN A-C 10-100 MG/5ML SYRUP 65507452034 No Longer Active Ling Benitez DOXYCYCLINE HYCLATE 100 MG CAP 1 po BID DOXYCYCLINE HYCLATE 95120927638 No Longer Active Ling Benitez PREDNISONE 20 MG TABS 3 PO for 1 day, 2 PO for 2 days and 1 PO for 3 days. PREDNISONE 48317353278 No Longer Active Ling Benitez COLCHICINE 0.6 MG TAB 1 PO Q3hrs prn gout pain. Maximum pills in one day is 8 pills. COLCHICINE Active Riley Rodrigues PREDNISONE 20 MG TAB 3 PO daily for 1 day, then 2 PO daily for 2 days then 1 Po daily for 3 days PREDNISONE 61334546296 No Longer Active Ling Benitez VITAMIN D CAPS (ERGOCALCIFEROL CAPS) 400MG 1 PO daily VITAMIN D CAPS (ERGOCALCIFEROL CAPS) 400MG No Longer Active Ling Benitez PRAVASTATIN SODIUM 40 MG TABS 1 po daily for cholesterol. PRAVASTATIN SODIUM 43367927447 Active Elly Nuñez ZOCOR 40 MG TABS 1 PO daily SIMVASTATIN 33242387900 No Longer Active Ling Benitez BENICAR 20 MG TABS 1 PO QD OLMESARTAN MEDOXOMIL 22218052426 No Longer Active Lingkan Benitez LOTENSIN 40 MG TABS 1 PO daily BENAZEPRIL HCL 67134828473 Active Elly Nuñez NORVASC 10 MG TAB 1 PO QD AMLODIPINE BESYLATE 59749332519 Active Elly Nuñez ROBITUSSIN A-C 10-100 MG/5ML SYRUP 5cc PO Q 4-6 hr prn ROBITUSSIN A-C 10-100 MG/5ML SYRUP 63157333480 No Longer Active Lingkan Benitez LORTAB 5 5-500 MG TABS 1 to 2 PO Q6hrs prn ACETAMINOPHEN- HYDROCODONE 43177938494 No Longer Active Lingkan Benitez ACYCLOVIR 800 MG TABS 1 PO five times a day for 7 days ACYCLOVIR 62646805878 No Longer Active Lingkan Benitez CALTRATE PLUS 600-200 MG-UNIT TABS 1 PO BID OTC CALCIUM CARBONATE-VIT D-MIN 87907449249 Active Lingkan Benitez VYTORIN 10-20 MG TABS 1 PO QAM EZETIMIBE-SIMVASTATIN 29717391003 No Longer Active Elly Nuñez ALEVE 220 MG TABS 2 PO BID prn back pain NAPROXEN SODIUM 43806024379 No Longer Active Lingkan Benitez MICARDIS 80 MG TABS 1 PO daily TELMISARTAN 22310833239 No Longer Active Lingakn Benitez LORTAB 5 5-500 MG TABS 1 q6hrs prn pain HYDROCODONE- ACETAMINOPHEN 55288254609 No Longer Active Lingkan Benitez LOTREL 10-20 MG CAPS 1 po qd AMLODIPINE BESY-BENAZEPRIL HCL 76986678337 No Longer Active Elly Nuñez RETIN-A 0.025 % CREAM apply QD as directed to face TRETINOIN 60124009673 No Longer Active Ling Benitez MAVIK 2 MG TABS 1 po daily TRANDOLAPRIL 05828572808 No Longer Active Ling Benitez CALCIUM 600 MG TABS 1 PO QD OTC CALCIUM 37148346500 No Longer Active Ling Benitez MULTIVITAMINS TABS 1 po daily MULTIPLE VITAMIN 68701284419 Active Ling Benitez ASPIRIN 81 MG TABS 1 po daily ASPIRIN 57787075699 Active Ling Benitez ZOCOR 20 MG TABS 1 po daily SIMVASTATIN 73668929334 No Longer Active Ling Benitez ATENOLOL 100 MG TABS 1 po daily ATENOLOL 30049848797 Active Elly Nuñez HYDROCHLOROTHIAZIDE 50 MG TABS 1 po daily HYDROCHLOROTHIAZIDE 33003845362 No Longer Active Ling Benitez Immunizations Vaccine [...] Description Clinical Lists Update: CBC,CMP,FLP,TSH,HgA1c - Chemistry Estimated Glomerular Filtration Rate (calc) 60 mL/min/1.73m2 glucose, plasma fasting 103 mg/dL albumin, serum 4.2 g/dL alkaline phosphatase, serum 71 U/L urea nitrogen, blood 25 mg/dL calcium, serum 9.4 mg/dL chloride, serum 105 mmol/L cholesterol, serum 155 mg/dL cholesterol/HDL ratio, serum, percent 3.4 anion gap, serum 13 sodium, serum 138 mmol/L triglyceride, serum, fasting 159 mg/dL bilirubin, serum, total 0.4 mg/dL alanine aminotransferase (SGPT), serum 35 U/L aspartate aminotransferase (SGOT), serum 38 U/L protein, total, serum 7.2 g/dL potassium, serum 4.2 mmol/L LDL cholesterol, serum 78 mg/dL thyroid stimulating hormone, serum 3.55 u[iU]/mL hemoglobin A1C, blood, as % of total hemoglobin 5.9 % HDL cholesterol, serum 45.0 mg/dL creatinine, serum 1.0 mg/dL carbon dioxide, venous blood 24.0 mmol/L Clinical Lists Update: CBC,CMP,FLP,TSH,HgA1c - Hematology leukocyte count, blood 7.3 10*3/mm3 mean corpuscular volume, RBC 101 fL red blood cell distribution width 14.6 % hemoglobin, blood 13.6 g/dL platelet count 178 10*3/mm3 erythrocyte (RBC) count 4.35 10*6/mm3 hematocrit, blood 44 % Clinical Lists Update: CMP,Chol,Trig,HgA1c - Chemistry Estimated Glomerular Filtration Rate (calc) 52 mL/min/1.73m2 glucose, plasma fasting 102 mg/dL anion gap, serum 12 sodium, serum 136 mmol/L triglyceride, serum, fasting 158 mg/dL bilirubin, serum, total 0.4 mg/dL alanine aminotransferase (SGPT), serum 31 U/L aspartate aminotransferase (SGOT), serum 32 U/L protein, total, serum 7.2 g/dL potassium, serum 4.2 mmol/L hemoglobin A1C, blood, as % of total hemoglobin 5.9 % creatinine, serum 1.1 mg/dL carbon dioxide, venous blood 24.0 mmol/L cholesterol, serum 172 mg/dL chloride, serum 104 mmol/L calcium, serum 9.6 mg/dL urea nitrogen, blood 22 mg/dL alkaline phosphatase, serum 81 U/L albumin, serum 4.0 g/dL Clinical Lists Update: CMP,FLP,HGA1C - Chemistry Estimated Glomerular Filtration Rate (calc) 50 mL/min/1.73m2 albumin, serum 4.0 g/dL cholesterol/HDL ratio, serum, percent 3.5 anion gap, serum 13 sodium, serum 137 mmol/L triglyceride, serum, fasting 123 mg/dL bilirubin, serum, total 0.4 mg/dL alanine aminotransferase (SGPT), serum 38 U/L aspartate aminotransferase (SGOT), serum 42 U/L protein, total, serum 7.1 g/dL potassium, serum 4.5 mmol/L LDL cholesterol, serum 88 mg/dL hemoglobin A1C, blood, as % of total hemoglobin 6.0 % HDL cholesterol, serum 45.0 mg/dL creatinine, serum 1.1 mg/dL carbon dioxide, venous blood 23.0 mmol/L cholesterol, serum 158 mg/dL chloride, serum 106 mmol/L calcium, serum 9.5 mg/dL urea nitrogen, blood 25 mg/dL alkaline phosphatase, serum 78 U/L glucose, plasma fasting 106 mg/dL Encounters Code Encounter Date Provider Facility CPT-45444 Ofc Vst, Est Level III 19:27:59 EMR IMPLEMENTATION SPECIALIST Ling Benitez DO, FACP CPT-65747 Ofc Vst, Est Level IV 14:39:56 CDT Ling [facility] CPT-69199 Ofc Vst, Est Level III 16:46:27 CDT Ling Benitez DO, FACP CPT-64686 Ofc Vst, Est Level III 19:04:28 CDT Ling Jane Benitez [facility] CPT-71579 Ofc Vst, Est Level IV 16:45:14 CDT Ling Jane [facility] CPT-86830 Ofc Vst, Est Level III 13:10:29 EMR IMPLEMENTATION SPECIALIST Ling Jane Benitez Ling S Benitez, DO, FACP CPT-70898 Ofc Vst, Est Level III 15:45:45 EMR IMPLEMENTATION SPECIALIST Ling Spain Emmanuel, DO, FACP CPT-42165 Ofc Vst, Est Level IV 13:57:24 CDT Ling Jane Benitez [facility] CPT-26687 Ofc Vst, Est Level III 14:31:03 CDT Ling Jane Benitez [facility] CPT-92712 Ofc Vst, Est Level IV 15:47:47 EMR IMPLEMENTATION SPECIALIST Ling Jane [facility]ite[facility] CPT-26296 Ofc Vst, Est Level IV 11:13:35 CDT Ling Jane [place] Emmanuel, DO, FACP CPT-13973 Ofc Vst, Est Level IV 10:50:22 CDT Ling Jane [place] Emmanuel, DO, FACP CPT-32954 Ofc Vst, Est Level IV 10:08:22 CDT Ling Jane [place] Emmanuel, DO, FACP CPT-05931 Ofc Vst, Est Level IV 10:44:48 CDT Ling Jane [place] Emmanuel, DO, FACP CPT-85438 Ofc Vst, Est Level IV 13:34:31 EMR IMPLEMENTATION SPECIALIST Ling Guardadoner Ling Spain Emmanuel, DO, FACP CPT-72481 Ofc Vst, Est Level IV 09:49:46 EMR IMPLEMENTATION SPECIALIST Ling Jane [place] Emmanuel, DO, FACP CPT-86424 Ofc Vst, Est Level V 10:39:18 EMR IMPLEMENTATION SPECIALIST Ling Jane Benitez Ling Grabiel Emmanuel, DO, FACP CPT-77358 Ofc Vst, Est Level IV 09:31:27 CDT Lingkan Guardadoner Ling Spain Emmanuel, DO, FACP CPT-13019 Ofc Vst, Est Level III 11:44:08 CDT Lingkan Spain Benitez, DO, FACP CPT-83943 Ofc Vst, Est Level V 11:29:25 CDT Ling Jane [place] Emmanuel, DO, FACP CPT-76576 Ofc Vst, Est Level V 09:49:50 CDT Ling Jane [place] Emmanuel, DO, FACP CPT-42783 Ofc Vst, Est Level IV 09:50:55 CDT Ling Jane [place] Emmanuel, DO, FACP CPT-13107 Ofc Vst, Est Level V 14:50:03 CDT Ling Jane [place] Emmanuel, DO, FACP CPT-56199 Ofc Vst, Est Level III 10:16:01 EMR IMPLEMENTATION SPECIALIST Ling Spain Emmanuel, DO, FACP CPT-24918 Ofc Vst, Est Level V 09:27:45 EMR IMPLEMENTATION SPECIALIST Lingkan Spain Emmanuel, DO, FACP CPT-35848 Ofc Vst, Est Level IV 16:57:02 CDT Lingkan Spain Emmanuel, DO, FACP CPT-67920 Ofc Vst, Est Level IV 16:14:45 CDT Ling Spain Emmanuel, DO, FACP CPT-93271 Ofc Vst, Est Level III 12:28:55 CDT Lingkan [place] Emmanuel, DO, FACP CPT-12939 Ofc Vst, Est Level IV 16:33:15 CDT Ling Jane [place] Emmanuel, DO, FACP CPT-07000 Ofc Vst, Est Level IV 09:14:59 CDT Ling Jane [place] Emmanuel, DO, FACP CPT-01488 Ofc Vst, Est Level IV 11:33:57 CDT Ling Jane [place] Emmanuel, DO, FACP CPT-27679 Ofc Vst, Est Level IV 11:47:04 CDT Lingkan Lara Emmanuel Benitez, DO, FACP CPT-84239 Ofc Vst, Est Level IV 14:26:17 CDT Ling Lara Emmanuel Benitez, DO, FACP CPT-58781 Ofc Vst, Est Level V 15:07:54 EMR IMPLEMENTATION SPECIALIST Lingkan Guardadosarthak Benitez, DO, FACP CPT-04845 Ofc Vst, Est Level III 15:05:00 EMR IMPLEMENTATION SPECIALIST Lingkan Lara Emmanuel Benitez, DO, FACP CPT-77152 Ofc Vst, Est Level III 14:54:15 CDT Lingkan Lara Emmanuel Benitez, DO, FACP CPT-65820 Ofc Vst, Est Level IV 11:03:28 CDT Lingkan Lara Emmanuel Benitez, DO, FACP CPT-47563 Ofc Vst, Est Level IV 11:23:17 CDT Lingkan Lara Emmanuel Benitez, DO, FACP CPT-63229 Ofc Vst, Est Level IV 13:38:42 CDT Ling Benitez [facility] [place] CPT-08815 Ofc Vst, Est Level IV 11:06:18 EMR IMPLEMENTATION SPECIALIST Ling Benitez [facility] [place] CPT-36475 Ofc Vst, Est Level III 16:02:00 CDT Lingkan Benitez [facility] [place] CPT-69829 Ofc Vst, Est Level III 13:55:34 CDT Ling Benitez [facility] [place] CPT-58079 Ofc Vst, Est Level IV 10:57:19 CDT Ling Benitez [facility] [place] CPT-19979 Ofc Vst, Est Level IV 10:36:33 EMR IMPLEMENTATION SPECIALIST Ling Benitez [facility] [place] CPT-40225 Ofc Vst, Est Level IV 10:32:48 EMR IMPLEMENTATION SPECIALIST Ling Benitez [facility] [place] CPT-19104 Ofc Vst, Est Level IV 15:26:49 EMR IMPLEMENTATION SPECIALIST Ling Benitez [facility] [place] CPT-43886 Ofc Vst, Est Level IV 11:23:15 CDT Ling Jane Benitez [facility] [place] CPT-47488 Ofc Vst, Est Level IV 10:16:10 CDT Ling Jane Benitez [facility] [place] CPT-27634 Ofc Vst, Est Level IV 18:44:39 CDT Ling Jane Benitez [facility] [place] CPT-30578 Ofc Vst, Est Level III 13:15:02 CDT Ling Benitez [facility] [place] CPT-89287 Ofc Vst, Est Level IV 12:26:03 EMR IMPLEMENTATION SPECIALIST Ling Benitez [facility] [place] CPT-79285 Ofc Vst, Est Level IV 18:06:54 EMR IMPLEMENTATION SPECIALIST Ling Benitez [facility] [place] CPT-43413 Ofc Vst, Est Level III 12:46:29 CDT Ling Jane Benitez [facility] [place] CPT-55168 Ofc Vst, Est Level IV 17:21:21 CDT Ling Benitez [facility] [place] CPT-49129 Ofc Vst, Est Level III 15:16:44 CDT Ling Jane Benitez [facility] [place] CPT-73244 Ofc Vst, Est Level II 11:42:02 CDT Ling Jane Benitez [facility] [place] CPT-58570 Ofc Vst, Est Level III 12:09:24 EMR IMPLEMENTATION SPECIALIST Ling Benitez [facility] [place] CPT-55522 Ofc Vst, New Level III 13:59:43 EMR IMPLEMENTATION SPECIALIST Ling Benitez [facility] [place] Procedures Code Procedure Name Date Entry Date Standard Description CPT-G0439 Medicare Annual Wellness Visit 14:32:15 EMR IMPLEMENTATION SPECIALIST CPT-G8443 E-Prescribing Medication Sent 20:53:37 EMR IMPLEMENTATION SPECIALIST CPT-G0439 Medicare Annual Wellness Visit 20:53:37 EMR IMPLEMENTATION SPECIALIST CPT-G8445 E-Prescribing Not sent due to no medication given 16:46: 27 CDT CPT-G8446 E-Prescribing not done due to controlled substance 19:04 :28 CDT CPT-G8446 E-Prescribing not done due to controlled substance 16:45 :14 CDT CPT-G8446 E-Prescribing not done due to controlled substance 13:10 :29 EMR IMPLEMENTATION SPECIALIST CPT-G8446 E-Prescribing not done due to controlled substance 15:45 :45 EMR IMPLEMENTATION SPECIALIST CPT-G8443 E-Prescribing Medication Sent 16:25:14 EMR IMPLEMENTATION SPECIALIST CPT-G0438 Medicare Annual Wellness Visit Initial 16:25:14 EMR IMPLEMENTATION SPECIALIST CPT-8446 E-Prescribing not done due to controlled substance 11:29: 25 CDT CPT-8445 E-Prescribing Not sent due to no medication given 09:50: 55 CDT CPT-8446 E-Prescribing not done due to controlled substance 14:50: 03 CDT CPT-00571 Handling of specimen from office to lab 11:13:16 EMR IMPLEMENTATION SPECIALIST CPT-83896 Excision of Malignant lesion 2.1-3.0 cm 11:13:16 EMR IMPLEMENTATION SPECIALIST CPT-93030 Injection 12:28:55 CDT CPT-94532 Excision of Benign Lesion 1.1-2.0 cm 14:54:15 CDT 02/25 CPT-61717 Injection, Pneumovax 11:03:28 CDT CPT-80966 Incision & Drainage, simple 12:52:53 EMR IMPLEMENTATION SPECIALIST CPT-65169 Cryopathy Skin 18:44:39 CDT CPT-86284 Biopsy, skin/subcut/mucous membrane; sngl lsn 10:32:32 CDT CPT-91640 Cryopathy Skin 17:21:21 CDT CPT-67352 Wound Repair, Superficial 11:42:03 CDT CPT-10348 Preventive, Est, (65+) 11:11:45 EMR IMPLEMENTATION SPECIALIST
[2017-11-06] MEDS ORDERED: NS IV 1000 ML 1,000 ML IV SCH ×2 (07:30→11:05)
[2017-11-06 07:48] LABS: MEAN PLATELET VOLUME 11.6 FL (7.4-10.4); RED BLOOD COUNT 4.64 10^6/uL (4.35-5.85); RED CELL DISTRIBUTION WIDTH 13.8 % (10.0-14.5); WHITE BLOOD COUNT 8.7 10^3/uL (4.3-11.0)
[2017-11-06 08:01] LABS: INR 1.1 (0.8-1.4); PROTHROMBIN TIME PATIENT 14.1 SEC (12.2-14.7)
[2017-11-06 08:12] LABS: ALBUMIN 4.4 GM/DL (3.2-4.5); BILIRUBIN,TOTAL 0.7 MG/DL (0.1-1.0); CALCIUM 10.4 MG/DL (8.5-10.1); CREATININE SERUM 1.23 MG/DL (0.60-1.30); POTASSIUM 4.7 MMOL/L (3.6-5.0); TOTAL PROTEIN 7.9 GM/DL (6.4-8.2)
[2017-11-06] MEDS ORDERED: CHOL5000 PO (08:22)
[2017-11-06] MEDS ORDERED: APIX5TAB4 PO (08:22)
[2017-11-06] MEDS ORDERED: AMLO10TA2 PO (08:28)
[2017-11-06] MEDS ORDERED: ALLO100T PO (08:28)
[2017-11-06] MEDS ORDERED: PRAV40TA2 PO (08:28)
[2017-11-06] MEDS ORDERED: BENA40TA5 PO (08:28)
[2017-11-06] MEDS ORDERED: FURO20TA4 PO (08:28)
[2017-11-06] MEDS ORDERED: ATEN100T PO (08:28)
[2017-11-06] MEDS ORDERED: POTA10CA43 PO (08:28)
[2017-11-06] MEDS ORDERED: LEVO50TA6 PO (08:28)
[2017-11-06] MEDS ORDERED: UBID200C16 PO (08:28)
[2017-11-06] MEDS ORDERED: MIDAZOLAM 5 MG/5 ML (VERSED) VIAL ONE (10:16)
[2017-11-06] MEDS ORDERED: diphenhydrAMINE 50 MG/ML INJ (BENADRYL) ONE (10:17)
[2017-11-06] MEDS ORDERED: fentaNYL INJECTION 100 MCG/2 ML AMP ONE (10:17)
--- NOTE | 2017-11-06 11:05 | Cardiac Procedure Note-CS/ASA ---
Pre-Procedure Note Pre-Op Procedure Note H&P Reviewed The H&P was reviewed, patient examined and no changes noted. Date H&P Reviewed: Nov 06, 2017 Time H&P Reviewed: 10:30 Conscious Sedation Pre-Proced Time Reviewed: 10:30 ASA Class: 3 Airway Mallampati Classification: (fort mojave appropriate class) I. II. III, IV Lungs Heart ASA score ASA 1: a normal healthy patient ASA 2: a patient with a mild systemic disease (mid diabetes, controlled hypertension, obesity ASA 3: a patient with a severe systemic disease that limits activity (angina , COPD, prior Myocardial infarction) ASA 4: a patient with an incapacitating disease that is a constant threat to life (CHF, renal failure) ASA 5: a moribund patient not expected to survive 24 hrs. (ruptured aneurysm) ASA 6: a declared brain patient whose organs are being harvested. For emergent operations, add the letter E after the classification Grade 3 Sedation Plan: Analgesia, Amnesia, Plan communicated to team members, Discussed options with patient/fam, Discussed risks with patient/fam Note The patient is an appropriate candidate to undergo the planned procedure, sedation, and anesthesia. The patient immediately re-assessed prior to indication. SARAH AMARAL MD FACP FAC CCDS Nov 06, 2017 11:05
--- NOTE | 2017-11-06 11:09 | Discharge Inst-Cardiology ---
Discharge Inst-Cardiac Discharge Medications Continued Medications: Allopurinol (Allopurinol) 100 Mg Tablet 100 MG PO DAILY, TAB Amlodipine Besylate (Amlodipine Besylate) 10 Mg Tablet 10 MG PO DAILY, TAB Apixaban (Eliquis) 5 Mg Tab.ds.pk 5 MG PO BID, PKG Atenolol (Atenolol) 100 Mg Tablet 100 MG PO DAILY, TAB Benazepril HCl (Benazepril HCl) 40 Mg Tab 40 MG PO DAILY, TAB Cholecalciferol (Vitamin D3) (Vitamin D3) 5,000 Unit Capsule 5000 UNIT PO DAILY, CAP Furosemide (Furosemide) 20 Mg Tablet 20 MG PO DAILY, TAB Levothyroxine Sodium (Levothyroxine Sodium) 50 Mcg Tablet 50 MCG PO DAILY, TAB Potassium Chloride (Potassium Chloride) 10 Meq Capsule.er 10 MEQ PO DAILY, CAP Pravastatin Sodium (Pravastatin Sodium) 40 Mg Tablet 40 MG PO DAILY, TAB Ubidecarenone (Co Q-10) 200 Mg Capsule 200 MG PO DAILY, CAP SARAH AMARAL MD FACP FAC CCDS Nov 06, 2017 11:09
--- NOTE | 2017-11-06 11:10 | Discharge Inst-Post CATH ---
Discharge Inst-CATH Post Cardiac Cath D/C Inst Follow Up/Plan F/u with Dr Means in 6 weeks F/u with pcp as soon as possible for evaluation for mild elevation of calcium level seen at the time of this procedure CARDIAC CATH DISCHARGE INSTRUCTIONS *Hold Metformin for 48 hours post heart cath. ACTIVITY * Go Home directly and rest. * Limit activity of the leg (or wrist if it was used) for 7 days including aerobics, swimming, jogging, bicycling, etc. * Restrict stair-climbing for 7 days if possible, if not, climb up with your non -cath leg, then bring together on the same step. * Avoid lifting, pushing, pulling or excessive movement of the affected extremity for 7 days. * Customary sexual activity may be resumed after 2 days-use caution not to use a position that strains or causes pain to the affected extremity. * No driving for 24 hours. * NO SMOKING. * Avoid straining for bowel movements for 7 days. * Gentle walking on level ground is allowed. * Returning to work will depend on the type of procedure and the results. Your doctor will discuss this with you. CALL YOUR DOCTOR FOR ANY OF THE FOLLOWING: *If bleeding from the puncture site occurs- Apply gentle pressure to site with clean cloth and call your doctor or EMS. * If a knot or lump forms under the skin, increases in size, or causes pain. * If bruising appears to be worsening or moving further down your leg instead of disappearing. * Temperature above 101 F. CARE OF YOUR GROIN INCISION; * Bruising or purple discoloration of the skin near the puncture site is common. * You may shower only, no bathtub bathing for 5 days. Be careful to avoid slipping as your leg may feel stiff. * If a closure device was used on your femoral artery, please see the attached guide regarding care of the device and your leg. * REMOVE the dressing from your groin the next day after your procedure in the shower. CARE OF YOUR WRIST INCISION; * Bruising or purple discoloration of the skin near the puncture site is common. * You may shower. * DO NOT submerge wrist. * Remove dressing in 24 hours. SARAH MEANS MD FACP [facility] CCDS Nov 06, 2017 11:10
[2017-11-06] MEDS ORDERED: PATIENT MAY USE OWN MEDS, ALL PO SCH (11:15)
--- NOTE | 2017-11-06 12:18 | CARDIAC CATHETERIZATION ---
DATE OF SERVICE: 11/06/2017 CARDIAC CATHETERIZATION REPORT The patient is an 82-year-old lady, who has coronary artery disease risk factors and symptoms of shortness of breath, who had a myocardial perfusion imaging study done recently that was indicative of anterior ischemia. Cardiac catheterization was carried out today after having obtained informed consent. PROCEDURE: She was brought to the cardiac catheterization laboratory in a fasting state. Right groin was prepared and draped in the usual sterile fashion. Lidocaine 1% with local anesthesia. Modified Seldinger technique was used to advance a 5-Martiniquais sheath for right femoral artery, 5-Martiniquais JL4 catheter for left coronary angiography, 5-Martiniquais JR4 catheter for right coronary angiography, 5-Martiniquais pigtail catheter for left heart catheterization, left ventricular angiography. At the end of the procedure, angiography of the right femoral artery was carried out through the sheath. Mynx was used to achieve hemostasis. She tolerated the procedure well. HEMODYNAMICS: Left ventricular end-diastolic pressure following coronary angiography was 7 mmHg. There is no significant pressure gradient on pullback across the aortic valve. Ascending aortic pressure was 103/60 with a mean of 78 mmHg. LEFT VENTRICULAR ANGIOGRAPHY: Left ventricular angiography was carried out in the right anterior oblique projection. Global left ventricular systolic function normal. No regional wall motion abnormalities are seen. Left ventricular ejection fraction is estimated to be approximately 60%. There does not appear to be significant mitral regurgitation. CORONARY ANGIOGRAPHY: Left main coronary artery, left anterior descending artery, left circumflex artery, right coronary artery do not exhibit any angiographically significant disease. Right coronary artery is dominant. Flow through all vessels is somewhat sluggish. CONCLUSIONS: 1. No significant obstructive coronary artery disease. 2. Normal global left ventricular systolic function with ejection fraction of approximately 60%. 3. Normal left ventricular end-diastolic pressure. 4. No significant mitral regurgitation is seen on this study. DISCUSSION AND RECOMMENDATIONS: Based on the results of the study, it appears appropriate to continue a conservative approach. Risk factor modification has been reviewed. Outpatient followup is advised. Job ID: [id number] DocumentID: [id number] Dictated Date: 11/06/2017 10:55:38 High Risk Case Manager Date: 11/06/2017 12:17:20 Dictated By: SARAH AMARAL MD, MA, FACP, FACC,
== END 2017-11-06 14:30 | disposition home or self-care (01) ==
LOC: CATH 07:09 → SURG 11:29 → CATH 14:30
PROVIDERS: ATTEND Internal Medicine Cardiovascular Disease
DX: R06.02 Shortness of breath (principal); R94.39 Abnormal result of other cardiovascular function study; I10 Essential (primary) hypertension; I48.0 Paroxysmal atrial fibrillation; R60.0 Localized edema; E66.9 Obesity, unspecified; Z68.41 Body mass index [BMI] 40.0-44.9, adult; Z79.01 Long term (current) use of anticoagulants; Z79.82 Long term (current) use of aspirin; Z79.899 Other long term (current) drug therapy
CPT/HCPCS: 36415; 36430; 80053; 80061; 85027; 85610; 85730; 87081; 93458

== ENCOUNTER → 2018-10-02 | Outpatient (CLI) | payer MEDICARE, OTHER ==
[~2018-10-02] MED LIST: ALLO100T PO; AMLO10TA7 PO; APIX5TAB4 PO; ATEN100T PO; BENA40TA5 PO; CEFD300C3 PO; CHOL5000 PO; FURO20TA4 PO; LEVO50TA6 PO; POTA10CA43 PO; PRAV40TA2 PO; UBID200C16 PO
[2018-10-02 15:08] LABS: ALANINE AMINOTRANSFERASE 59 U/L (0-55); ALBUMIN 4.5 GM/DL (3.2-4.5); ALKALINE PHOSPHATASE 78 U/L (40-136); BILIRUBIN,TOTAL 0.4 MG/DL (0.1-1.0); BUN/CREATININE RATIO 19; CALCIUM 10.3 MG/DL (8.5-10.1); CARBON DIOXIDE 23 MMOL/L (21-32); CHLORIDE 104 MMOL/L (98-107); CREATININE SERUM 1.04 MG/DL (0.60-1.30); GFR ESTIMATED 51; GLUCOSE 102 MG/DL (70-105); POTASSIUM 4.1 MMOL/L (3.6-5.0); SODIUM 138 MMOL/L (135-145); TOTAL PROTEIN 8.2 GM/DL (6.4-8.2)
== END ==
LOC: LAB 14:20
PROVIDERS: ATTEND Internal Medicine Cardiovascular Disease
DX: I10 Essential (primary) hypertension (principal); I25.10 Atherosclerotic heart disease of native coronary artery without angina pectoris; I48.0 Paroxysmal atrial fibrillation; R06.02 Shortness of breath; M25.511 Pain in right shoulder
CPT/HCPCS: 36415; 80053; 83735; 84443; 84484

== ENCOUNTER → 2019-05-13 | Outpatient (CLI) | payer MEDICARE, OTHER ==
[~2019-05-13] MED LIST changes: +PRD20T PO
== END ==
LOC: RAD 13:44
PROVIDERS: ATTEND Internal Medicine Cardiovascular Disease
DX: I70.213 Atherosclerosis of native arteries of extremities with intermittent claudication, bilateral legs (principal); I10 Essential (primary) hypertension; I25.10 Atherosclerotic heart disease of native coronary artery without angina pectoris; I48.0 Paroxysmal atrial fibrillation
CPT/HCPCS: 93923

== ENCOUNTER 2019-05-23 11:08 | Emergency (ER) | payer MEDICARE, OTHER ==
[~2019-05-23] VITALS: Ht 162.6 cm; Wt 99.8 kg
[~2019-05-23 11:08] MED LIST changes: -PRD20T PO
[2019-05-23 11:55] LABS: BASOPHILS % (AUTO) 0 % (0-10); EOSINOPHILS # (AUTO) 0.2 10^3/uL (0.0-0.3); EOSINOPHILS % (AUTO) 2 % (0-10); HEMATOCRIT 43 % (35-52); LYMPHOCYTES # (AUTO) 3.4 X 10^3 (1.0-4.0); LYMPHOCYTES % (AUTO) 34 % (12-44); MEAN CORPUSCULAR HEMOGLOBIN 31 PG (25-34); MEAN CORPUSCULAR HGB CONC 33 G/DL (32-36); MEAN CORPUSCULAR VOLUME 97 FL (80-99); MEAN PLATELET VOLUME 11.5 FL (7.4-10.4); MONOCYTES % (AUTO) 10 % (0-12); NEUTROPHILS # (AUTO) 5.4 X 10^3 (1.8-7.8); NEUTROPHILS % (AUTO) 54 % (42-75); PLATELET COUNT 207 10^3/uL (130-400); RED CELL DISTRIBUTION WIDTH 13.9 % (10.0-14.5)
[2019-05-23 12:02] LABS: INR 1.1 (0.8-1.4); PROTHROMBIN TIME PATIENT 14.9 SEC (12.2-14.7)
[2019-05-23 12:05] LABS: ALANINE AMINOTRANSFERASE 31 U/L (0-55); ALBUMIN 4.2 GM/DL (3.2-4.5); ALKALINE PHOSPHATASE 86 U/L (40-136); BILIRUBIN,TOTAL 0.5 MG/DL (0.1-1.0); BUN/CREATININE RATIO 21; CALCIUM 10.1 MG/DL (8.5-10.1); CARBON DIOXIDE 21 MMOL/L (21-32); CHLORIDE 106 MMOL/L (98-107); CREATININE SERUM 0.91 MG/DL (0.60-1.30); GFR ESTIMATED 59; GLUCOSE 100 MG/DL (70-105); MAGNESIUM 2.1 MG/DL (1.6-2.4); POTASSIUM 4.3 MMOL/L (3.6-5.0); SODIUM 138 MMOL/L (135-145); TOTAL PROTEIN 7.9 GM/DL (6.4-8.2)
--- NOTE | 2019-05-23 12:21 | ED Cardiac General ---
History of Present Illness General Chief Complaint: Cardiac/General Problems Stated Complaint: RIGHT SHOULDER/BACK PAIN LEFT HAND NUMBNESS Nursing Triage Note: Pt amb to room #5 with c/o Rt shoulder/ back discomfort and intermittent Lt hand numbness/tingling. Pt reports she has been experiencing s/s intermittently since approx 05/21/19. Pt reports increasing SOA upon physical exertion. Denies CP or chest discomfort. Reports hx AFib. A&OX4. Spouse @ side. Source: patient Exam Limitations: no limitations History of Present Illness Date Seen by Provider: May 23, 2019 Time Seen by Provider: 11:23 Initial Comments This 83-year-old woman presents to the emergency room with concerns about pain medial to the right scapula and left hand numbness. The numbness in the left hand is really described more as a paresthesia with a pins and needles sensation. It affects all fingers and the entire hand. She had one prior episode of these symptoms for which she was evaluated at [facility]. She has atrial fibrillation and is anticoagulated with a Eliquis. She sometimes has dyspnea on exertion. She denies any neck symptoms except for some occasional tightness in the right neck when she moves the wrong way. Dr. 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 Spears is her primary care provider. Allergies and Home Medications Allergies Coded Allergies: No Known Drug Allergies (Verified , 09/09/07) Home Medications Allopurinol 100 Mg Tablet, 100 MG PO DAILY, (Reported) Amlodipine Besylate 10 Mg Tablet, 10 MG PO DAILY, (Reported) Apixaban 5 Mg Tab.ds.pk, 5 MG PO BID, (Reported) Atenolol 100 Mg Tablet, 100 MG PO DAILY, (Reported) Benazepril HCl 40 Mg Tab, 40 MG PO DAILY, (Reported) Cefdinir 300 Mg Capsule, 300 MG PO BID Prescribed by: VIOLA SPEARS on 12/19/17 1030 Cholecalciferol (Vitamin D3) 5,000 Unit Capsule, 5,000 UNIT PO DAILY, (Reported) Furosemide 20 Mg Tablet, 20 MG PO DAILY, (Reported) Levothyroxine Sodium 50 Mcg Tablet, 50 MCG PO DAILY, (Reported) Potassium Chloride 10 Meq Capsule.er, 10 MEQ PO DAILY, (Reported) Pravastatin Sodium 40 Mg Tablet, 40 MG PO DAILY, (Reported) Ubidecarenone 200 Mg Capsule, 200 MG PO DAILY, (Reported) Patient Home Medication List Home Medication List Reviewed: Yes Review of Systems Review of Systems Constitutional: no symptoms reported EENTM: No Symptoms Reported Respiratory: See HPI Cardiovascular: See HPI Gastrointestinal: No Symptoms Reported Genitourinary: No Symptoms Reported Musculoskeletal: see HPI Skin: no symptoms reported Psychiatric/Neurological: See HPI Endocrine: No Symptoms Reported Hematologic/Lymphatic: No Symptoms Reported Past Hunxzvv-Gcwrgo-Qgfeqa Hx Patient Social History Alcohol Use: Denies Use Recreational Drug Use: No Smoking Status: Never a Smoker Recent Foreign Travel: No Contact w/Someone Who Travel: No Recent Infectious Disease Expo: No Recent Hopitalizations: No (HEART CATH 10/2017) Immunizations Up To Date Tetanus Booster (TDap): Unknown Date of Pneumonia Vaccine: Jan 11, 2016 Seasonal Allergies Seasonal Allergies: No Past Medical History Surgeries: Yes (hyst,back surgery,R middle finger cyst removed) Orthopedic Respiratory: No Currently Using CPAP: No Currently Using BIPAP: No Cardiac: Yes Atrial Fibrillation, Deep Vein Thrombosis, High Cholesterol, Hypertension Neurological: No Reproductive Disorders: No Sexually Transmitted Disease: No Genitourinary: Yes Renal Failure Gastrointestinal: Yes Polyps Musculoskeletal: Yes (LEFT KNEE TORN MEDIAL MENISCUS, Spinal stenosis) Degenerate Disk Disease, Chronic Back Pain Endocrine: No HEENT: Yes Hearing Impairment: Hard of Hearing Cancer: Yes Skin Psychosocial: No Integumentary: No Blood Disorders: No Adverse Reaction/Blood Tranf: No Family Medical History Hypertension Physical Exam Vital Signs Vital Signs - First Documented 05/23/19 11:20 Temp 36.4 Pulse 92 Resp 17 B/P (MAP) 153/94 (113) Pulse Ox 97 O2 Delivery Room Air Capillary Refill : Less Than 3 Seconds Height, Weight, BMI Height: 5'4.00" Weight: 235lbs. 2.0oz. 106.077126wl; 37.00 BMI Method:Stated General Appearance: No Apparent Distress HEENT: PERRL/EOMI, Normal ENT Inspection Neck: Normal Inspection, Supple Respiratory: Lungs Clear, Normal Breath Sounds, No Accessory Muscle Use, No Respiratory Distress Cardiovascular: No Edema, No Murmur, Normal Peripheral Pulses, Irregularly Irregular Gastrointestinal: Non Tender, Soft Extremity: Normal Inspection, No Pedal Edema, Other (tension and tenderness in the musculature between the scapula and the spine bilaterally.) Neurologic/Psychiatric: Alert, Oriented x3, No Motor/Sensory Deficits, Normal Mood/Affect, minister helper II-XII Norm as Tested Skin: Normal Color, Warm/Dry Progress/Results/Core Measures Results/Orders Lab Results Laboratory Tests Test 05/23/19 11:20 Range/Units White Blood Count 10.0 4.3-11.0 10^3/uL Red Blood Count 4.46 4.35-5.85 10^6/uL Hemoglobin 14.0 11.5-16.0 G/DL Hematocrit 43 35-52 % Mean Corpuscular Volume 97 80-99 FL Mean Corpuscular Hemoglobin 31 25-34 PG Mean Corpuscular Hemoglobin Concent 33 32-36 G/DL Red Cell Distribution Width 13.9 10.0-14.5 % Platelet Count 207 130-400 10^3/uL Mean Platelet Volume 11.5 H 7.4-10.4 FL Neutrophils (%) (Auto) 54 42-75 % Lymphocytes (%) (Auto) 34 12-44 % Monocytes (%) (Auto) 10 0-12 % Eosinophils (%) (Auto) 2 0-10 % Basophils (%) (Auto) 0 0-10 % Neutrophils # (Auto) 5.4 1.8-7.8 X 10^3 Lymphocytes # (Auto) 3.4 1.0-4.0 X 10^3 Monocytes # (Auto) 1.0 0.0-1.0 X 10^3 Eosinophils # (Auto) 0.2 0.0-0.3 10^3/uL Basophils # (Auto) 0.0 0.0-0.1 10^3/uL Prothrombin Time 14.9 H 12.2-14.7 SEC INR Comment 1.1 0.8-1.4 Activated Partial Thromboplast Time 45 H 24-35 SEC Sodium Level 138 135-145 MMOL/L Potassium Level 4.3 3.6-5.0 MMOL/L Chloride Level 106 98-107 MMOL/L Carbon Dioxide Level 21 21-32 MMOL/L Anion Gap 11 5-14 MMOL/L Blood Urea Nitrogen 19 H 7-18 MG/DL Creatinine 0.91 0.60-1.30 MG/DL Estimat Glomerular Filtration Rate 59 BUN/Creatinine Ratio 21 Glucose Level 100 70-105 MG/DL Calcium Level 10.1 8.5-10.1 MG/DL Corrected Calcium 9.9 8.5-10.1 MG/DL Magnesium Level 2.1 1.6-2.4 MG/DL Total Bilirubin 0.5 0.1-1.0 MG/DL Aspartate Amino Transf (AST/SGOT) 35 H 5-34 U/L Alanine Aminotransferase (ALT/SGPT) 31 0-55 U/L Alkaline Phosphatase 86 40-136 U/L Myoglobin 73.4 10.0-92.0 NG/ML Troponin I < 0.028 <0.028 NG/ML Total Protein 7.9 6.4-8.2 GM/DL Albumin 4.2 3.2-4.5 GM/DL My Orders Orders - CLAIR LU MD Cbc With Automated Diff (05/23/19 11:48) Magnesium (05/23/19 11:48) Chest 1 View, Ap/Pa Only (05/23/19 11:48) Ekg Tracing (05/23/19 11:48) Comprehensive Metabolic Panel (05/23/19 11:48) Myoglobin Serum (05/23/19 11:48) Protime With Inr (05/23/19 11:48) Partial Thromboplastin Time (05/23/19 11:48) O2 (05/23/19 11:48) Monitor-Rhythm Ecg Trace Only (05/23/19 11:48) Lipid Panel (05/24/19 06:00) Ed Iv/Invasive Line Start (05/23/19 11:48) Troponin I (05/23/19 11:20) Vital Signs/I&O 05/23/19 11:20 Temp 36.4 Pulse 92 Resp 17 B/P (MAP) 153/94 (113) Pulse Ox 97 O2 Delivery Room Air Blood Pressure Mean: 113 Progress Progress Note #1: Time: 12:21 Progress Note Patient was seen and examined. She was concerned about possible cardiac causes for her symptoms. EKG showed stable atrial fibrillation. Labs were unremarkable. I suspect patient's pain and numbness are secondary to radiculopathy and/or musculoskeletal inflammation. Progress Note #2: Time: 12:40 Progress Note Chest x-ray was also unremarkable. I discussed treatment options with the patient. We will try a short course of steroids. If her symptoms are radicular nature, this will hopefully help. Initial ECG Impression Date: May 23, 2019 Initial ECG Impression Time: 11:11 Initial ECG Rate: 105 Initial ECG Rhythm: A Fib/Flutter Initial ECG Impression: Atrial Fibrillation Comment Atrial fibrillation with no ST elevation or depression. No abnormal intervals or axis deviation. Diagnostic Imaging Diagonstic Imaging: Xray Plain Films/CT/US/NM/MRI: chest Comments Chest x-ray viewed by me and report reviewed. See report below: NAME: DAKOTAH MACEDO MED REC#: [id number] PT STATUS: REG ER : 1935 PHYSICIAN: CLAIR LU MD ADMIT DATE: 05/23/19/ER Draft Date of Exam:05/23/19 CHEST 1 VIEW, AP/PA ONLY EXAMINATION: Portable erect AP chest at 12:15 p.m. INDICATION: Shortness of breath. FINDINGS: The cardiomegaly noted on the prior exam of 12/18/2017 is again evident and not significantly changed. The chronic bronchovascular markings in the right infrahilar region seen previously are also again noted and no different. The lungs are generally clear. There is no sign of failure, pneumonia, or pleural effusion to indicate an acute abnormality. The mediastinum is not widened. The osseous structures are intact. In the interval since the prior exam, a loop recorder device has been inserted. The device overlies the left thorax in the region of the cardiac silhouette. IMPRESSION: 1. There is cardiomegaly, but there is no evidence for an acute cardiopulmonary abnormality. 2. There has been interval insertion of a loop recorder device on the left. Dictated on workstation # [id number] Dict: 05/23/19 1221 Trans: 05/23/19 1225 [id number] Interpreted by: JOAN BARRETO MD Departure Impression Primary Impression: Upper back pain Additional Impression: Paresthesias in left hand Disposition: 01 HOME, SELF-CARE Condition: Stable Departure-Patient Inst. Decision time for Depature: 12:42 Referrals: VIOLA SPEARS DO (PCP/Family) Primary Care Physician Patient Instructions: Paresthesias (DC) Add. Discharge Instructions: Use prednisone as prescribed. Take early in the day with food or milk to avoid stomach upset or sleep disturbance. Discontinue if it is not tolerated well. You may take Tylenol (acetaminophen) up to 1000 mg every 6 hours as needed for pain. This is safe to take with your other medications. Follow-up with your primary care provider after you completely to steroids. If symptoms persist, further workup may be necessary. You may need imaging of your neck, physical therapy, or other interventions. Return to care if you have worsening symptoms despite treatment with prednisone, especially if you develop weakness in the extremities or difficulty controlling bowels or bladder. All discharge instructions reviewed with patient and/or family. Voiced understanding. Scripts Prednisone (Prednisone) 20 Mg Tab 20 MG PO DAILY, #4 TAB 0 Refills Prov: CLAIR LU MD 05/23/19 Copy Copies To 1: VIOLA SPEARS DO Copies To 2: SARAH MEANS MD FACP [facility] CLAIR LU MD May 23, 2019 12:21
--- NOTE | 2019-05-23 12:25 | Diagnostic Imaging Report ---
EXAMINATION: Portable erect AP chest at 12:15 p.m. INDICATION: Shortness of breath. FINDINGS: The cardiomegaly noted on the prior exam of 12/18/2017 is again evident and not significantly changed. The chronic bronchovascular markings in the right infrahilar region seen previously are also again noted and no different. The lungs are generally clear. There is no sign of failure, pneumonia, or pleural effusion to indicate an acute abnormality. The mediastinum is not widened. The osseous structures are intact. In the interval since the prior exam, a loop recorder device has been inserted. The device overlies the left thorax in the region of the cardiac silhouette. IMPRESSION: 1. There is cardiomegaly, but there is no evidence for an acute cardiopulmonary abnormality. 2. There has been interval insertion of a loop recorder device on the left. Dictated by: Dictated on workstation # [id number]
[2019-05-23] MEDS ORDERED: PRD20T PO (12:43)
[2019-05-23 12:55] VITALS: BP 137/81
== END 2019-05-23 12:55 | disposition home or self-care (01) ==
LOC: EDUNIT# 11:08 → ER 11:10
DX: M54.6 Pain in thoracic spine (principal); R20.2 Paresthesia of skin; I48.91 Unspecified atrial fibrillation; I10 Essential (primary) hypertension; E78.00 Pure hypercholesterolemia, unspecified; Z85.828 Personal history of other malignant neoplasm of skin; Z79.01 Long term (current) use of anticoagulants; Z95.9 Presence of cardiac and vascular implant and graft, unspecified; Z90.710 Acquired absence of both cervix and uterus; Z86.718 Personal history of other venous thrombosis and embolism; Z82.49 Family history of ischemic heart disease and other diseases of the circulatory system
CPT/HCPCS: 36415; 71045; 80053; 83735; 83874; 84484; 85025; 85610; 85730; 93005; 93041

== ENCOUNTER 2020-09-16 03:35 | Day surgery (SDC) | payer MEDICARE, OTHER ==
[2020-09-16] VITALS (10 sets, daily range): BP systolic 100–175; BP diastolic 64–93
[~2020-09-16] VITALS: Ht 162.5 cm; Wt 106.2 kg
[~2020-09-16 03:35] MED LIST changes: +AMLO-251 PO; -AMLO10TA7 PO; +PRD20T PO
[2020-09-16] MEDS ORDERED: ASPIRIN 81 MG CHEW (CHILDREN'S ASA) PO ONE (04:00)
[2020-09-16] MEDS ORDERED: NITROGLYCERIN 0.4 MG SL TABS BTL 25'S SL PRN ×2 (04:00→06:15)
--- NOTE | 2020-09-16 04:00 | ED Chest Pain ---
General Stated Complaint: SOB Source: patient Exam Limitations: no limitations History of Present Illness Date Seen by Provider: September 16, 2020 Time Seen by Provider: 03:40 Initial Comments Patient presents ER by private conveyance from home with her spouse and chief complaint of getting home from breakfast yesterday morning she says she felt tired so she fell asleep on the couch and then was awoken with some sharp chest pain which has persisted. She is not having any nausea fever sweats chills but she does feel short of breath has occasional cough. No sick contacts. She did not take anything but some Tylenol for her discomfort. She does not have a history of coronary disease, however she does have hypertension hyperlipidemia. She denies diabetes or smoking. She has had both of her Covid vaccines in June and then July. She currently rates her pain as a 5 out of 10. She has a history of atrial fibrillation on Eliquis. She denies any palpitations or flutters. No syncope. She is known to Dr. Means and Dr. Spears. Cardiac catheterization 2017 demonstrates mild to moderate nonobstructive disease. Rate controlled A. fib on Eliquis, hypertension, hyperlipidemia, BMI 39, osteoarthritis. Allergies and Home Medications Allergies Coded Allergies: No Known Drug Allergies (Verified , 09/09/07) Home Medications Allopurinol 100 Mg Tablet, 100 MG PO DAILY, (Reported) Amlodipine Besylate 10 Mg Tablet, 10 MG PO DAILY, (Reported) Apixaban 5 Mg Tab.ds.pk, 5 MG PO BID, (Reported) Atenolol 100 Mg Tablet, 100 MG PO DAILY, (Reported) Benazepril HCl 40 Mg Tab, 40 MG PO DAILY, (Reported) Cefdinir 300 Mg Capsule, 300 MG PO BID Prescribed by: VIOLA SPEARS on 12/19/17 1030 Cholecalciferol (Vitamin D3) 5,000 Unit Capsule, 5,000 UNIT PO DAILY, (Reported) Furosemide 20 Mg Tablet, 20 MG PO DAILY, (Reported) Levothyroxine Sodium 50 Mcg Tablet, 50 MCG PO DAILY, (Reported) Potassium Chloride 10 Meq Capsule.er, 10 MEQ PO DAILY, (Reported) Pravastatin Sodium 40 Mg Tablet, 40 MG PO DAILY, (Reported) Prednisone 20 Mg Tab, 20 MG PO DAILY Prescribed by: CLAIR LOMBARDI on 05/23/19 1243 Ubidecarenone 200 Mg Capsule, 200 MG PO DAILY, (Reported) Patient Home Medication List Home Medication List Reviewed: Yes Review of Systems Review of Systems Constitutional: No chills, No fever; malaise, weakness EENTM: No Blurred Vision, No Double Vision Respiratory: Cough, Shortness of Air, SOA at Rest; Denies Wheezing Cardiovascular: See HPI, Chest Pain; Denies Edema Gastrointestinal: Denies Abdomen Distended, Denies Abdominal Pain, Denies Constipated, Denies Diarrhea, Denies Nausea Genitourinary: Denies Burning, Denies Discharge Musculoskeletal: No back pain, No joint pain Skin: No pruritus, No rash Psychiatric/Neurological: Denies Anxiety, Denies Depressed, Denies Headache All Other Systems Reviewed Negative Unless Noted: Yes Past Nbnaean-Prupzj-Yascaq Hx Patient Social History Alcohol Use: Denies Use Drug of Choice: Denies Smoking Status: Never a Smoker Recent Hopitalizations: No (HEART CATH 10/2017) Immunizations Up To Date Tetanus Booster (TDap): Unknown Date of Pneumonia Vaccine: Jan 11, 2016 Seasonal Allergies Seasonal Allergies: No Past Medical History Surgeries: Yes (hyst,back surgery,R middle finger cyst removed) Orthopedic Respiratory: No Currently Using CPAP: No Currently Using BIPAP: No Cardiac: Yes Atrial Fibrillation, Deep Vein Thrombosis, High Cholesterol, Hypertension Neurological: No Reproductive Disorders: No Sexually Transmitted Disease: No Genitourinary: Yes Renal Failure Gastrointestinal: Yes Polyps Musculoskeletal: Yes (LEFT KNEE TORN MEDIAL MENISCUS, Spinal stenosis) Degenerate Disk Disease, Chronic Back Pain Endocrine: No HEENT: Yes Hearing Impairment: Hard of Hearing Cancer: Yes Skin Psychosocial: No Integumentary: No Blood Disorders: No Adverse Reaction/Blood Tranf: No Family Medical History Hypertension Physical Exam Vital Signs Vital Signs - First Documented 09/16/20 03:35 Temp 36.9 Pulse 101 Resp 16 B/P (MAP) 147/114 (125) Pulse Ox 95 O2 Delivery Nasal Cannula O2 Flow Rate 2.0 Capillary Refill : Height, Weight, BMI Height: 5'4.00" Weight: 235lbs. 2.0oz. 106.845779mv; 37.00 BMI Method:Stated General Appearance: Moderate Distress, Obese HEENT: PERRL/EOMI, Pharynx Normal, Moist Mucous Membranes Neck: Full Range of Motion, Normal Inspection Respiratory: Chest Non Tender, Lungs Clear, Normal Breath Sounds, No Accessory Muscle Use, Respiratory Distress (Mild with oxygen saturation 92 to 93% on room air, nonlabored breathing) Cardiovascular: Regular Rate, Rhythm, No Edema, Normal Peripheral Pulses Gastrointestinal: Normal Bowel Sounds, Non Tender, Soft Extremity: Normal Capillary Refill, Normal Inspection, No Pedal Edema Neurologic/Psychiatric: Alert, Oriented x3 Skin: Normal Color, Warm/Dry Progress/Results/Core Measures Results/Orders Lab Results Laboratory Tests Test 09/16/20 04:05 09/16/20 04:33 Range/Units White Blood Count 10.7 4.3-11.0 10^3/uL Red Blood Count 4.19 3.80-5.11 10^6/uL Hemoglobin 13.9 11.5-16.0 g/dL Hematocrit 41 35-52 % Mean Corpuscular Volume 98 80-99 fL Mean Corpuscular Hemoglobin 33 25-34 pg Mean Corpuscular Hemoglobin Concent 34 32-36 g/dL Red Cell Distribution Width 13.7 10.0-14.5 % Platelet Count 197 130-400 10^3/uL Mean Platelet Volume 11.3 9.0-12.2 fL Immature Granulocyte % (Auto) 1 % Neutrophils (%) (Auto) 60 42-75 % Lymphocytes (%) (Auto) 25 12-44 % Monocytes (%) (Auto) 13 H 0-12 % Eosinophils (%) (Auto) 1 0-10 % Basophils (%) (Auto) 0 0-10 % Neutrophils # (Auto) 6.4 1.8-7.8 10^3/uL Lymphocytes # (Auto) 2.6 1.0-4.0 10^3/uL Monocytes # (Auto) 1.4 H 0.0-1.0 10^3/uL Eosinophils # (Auto) 0.2 0.0-0.3 10^3/uL Basophils # (Auto) 0.0 0.0-0.1 10^3/uL Immature Granulocyte # (Auto) 0.1 0.0-0.1 10^3/uL Sodium Level 139 135-145 MMOL/L Potassium Level 5.6 H 3.6-5.0 MMOL/L Chloride Level 104 98-107 MMOL/L Carbon Dioxide Level 25 21-32 MMOL/L Anion Gap 10 5-14 MMOL/L Blood Urea Nitrogen 18 7-18 MG/DL Creatinine 0.98 0.60-1.30 MG/DL Estimat Glomerular Filtration Rate 54 BUN/Creatinine Ratio 18 Glucose Level 119 H 70-105 MG/DL Calcium Level 9.3 8.5-10.1 MG/DL Corrected Calcium 9.4 8.5-10.1 MG/DL Magnesium Level 2.0 1.6-2.4 MG/DL Total Bilirubin 0.7 0.1-1.0 MG/DL Aspartate Amino Transf (AST/SGOT) 58 H 5-34 U/L Alanine Aminotransferase (ALT/SGPT) 31 0-55 U/L Alkaline Phosphatase 75 40-136 U/L Myoglobin 79.5 10.0-92.0 NG/ML Troponin I < 0.028 <0.028 NG/ML B-Type Natriuretic Peptide 87.2 <100.0 PG/ML Total Protein 7.9 6.4-8.2 GM/DL Albumin 3.9 3.2-4.5 GM/DL SARS-CoV-2 RNA (RT-PCR) Not Detected Not Detecte My Orders Orders - ADÁN GERARD Cbc With Automated Diff (09/16/20 03:51) Magnesium (09/16/20 03:51) Chest 1 View, Ap/Pa Only (09/16/20 03:51) Ekg Tracing (09/16/20 03:51) Comprehensive Metabolic Panel (09/16/20 03:51) Myoglobin Serum (09/16/20 03:51) Protime With Inr (09/16/20 03:51) Partial Thromboplastin Time (09/16/20 03:51) O2 (09/16/20 03:51) Monitor-Rhythm Ecg Trace Only (09/16/20 03:51) Lipid Panel (09/17/20 06:00) Ed Iv/Invasive Line Start (09/16/20 03:51) BNP (09/16/20 03:51) Fibrin Degradation Products (09/16/20 03:51) Troponin I (09/16/20 03:51) Nitroglycerin 0.4 Mg Btl 25's (Nitrostat (09/16/20 04:00) Aspirin Chewable Tablet (Baby Aspirin Ch (09/16/20 04:00) Covid 19 Inhouse Test (09/16/20 03:51) Hs C Reactive Protein (09/16/20 03:51) Procalcitonin (Pct) (09/16/20 03:51) Medications Given in ED Current Medications Medications Dose Ordered Sig/Raegan Route Start Time Stop Time Status Last Admin Dose Admin Aspirin 324 mg ONCE ONCE PO 09/16/20 04:00 09/16/20 04:01 DC 09/16/20 04:07 324 MG Nitroglycerin 0.4 mg UD PRN SL 09/16/20 04:00 09/16/20 04:08 0.4 MG Vital Signs/I&O 09/16/20 09/16/20 09/16/20 09/16/20 03:35 03:35 04:10 04:15 Temp 36.9 Pulse 101 87 88 Resp 16 B/P (MAP) 147/114 (125) 136/85 (102) 108/43 (64) Pulse Ox 95 O2 Delivery Nasal Cannula Nasal Cannula O2 Flow Rate 2.0 2.00 Progress Progress Note : Time: 03:58 Progress Note 324 of aspirin will be given as well as check some labs and give her some nitroglycerin. We will go ahead and swab her for Covid. Chest x-ray. Afebrile, aseptic vital signs. Put her on 2 L by nasal cannula of oxygen supplementally and this brought her oxygen sats up to mid to upper 90s. Initial ECG Impression Date: September 16, 2020 Initial ECG Impression Time: 03:43 Initial ECG Rate: 93 Initial ECG Rhythm: A Fib/Flutter Initial ECG Intervals: QT (468) Initial ECG Impression: Atrial Fibrillation Initial ECG Comparisson: Unchanged Comment Atrial fibrillation without rapid ventricular response. No clinically relevant ST elevation or depression. Diagnostic Imaging Diagonstic Imaging: Xray Plain Films/CT/US/NM/MRI: chest Comments No acute cardiopulmonary process on 1 view chest x-ray. Reviewed: Reviewed by Me Departure Communication (Admissions) Time/Spoke to Admitting Phy: 05:[address] Delgado who agrees to observe the patient with cardiac consultation. Time/Spoke to Consulting Phy: 05:00 Discussed the case with Dr. Means and we discussed the recent heart catheterization from 3 years ago but her pain did improve with nitroglycerin. He says of her blood pressure will not tolerate more nitroglycerin then we could use a low-dose of narcotic analgesic. Impression Primary Impression: Chest pain Qualified Codes: R07.9 - Chest pain, unspecified Disposition: ADMITTED INPATIENT Condition: Stable Admissions Decision to Admit Reason: Admit from ER (General) Decision to Admit/Date: September 16, 2020 Time/Decision to Admit Time: 05:00 Departure-Patient Inst. Referrals: VIOLA SPEARS DO (PCP/Family) Primary Care Physician ADÁN GERARD September 16, 2020 03:59
[2020-09-16 04:17] LABS: BASOPHILS % (AUTO) 0 % (0-10); EOSINOPHILS # (AUTO) 0.2 10^3/uL (0.0-0.3); EOSINOPHILS % (AUTO) 1 % (0-10); HEMATOCRIT 41 % (35-52); HEMOGLOBIN 13.9 g/dL (11.5-16.0); LYMPHOCYTES # (AUTO) 2.6 10^3/uL (1.0-4.0); LYMPHOCYTES % (AUTO) 25 % (12-44); MEAN CORPUSCULAR HEMOGLOBIN 33 pg (25-34); MEAN CORPUSCULAR HGB CONC 34 g/dL (32-36); MEAN CORPUSCULAR VOLUME 98 fL (80-99); MEAN PLATELET VOLUME 11.3 fL (9.0-12.2); MONOCYTES # (AUTO) 1.4 10^3/uL (0.0-1.0); MONOCYTES % (AUTO) 13 % (0-12); NEUTROPHILS # (AUTO) 6.4 10^3/uL (1.8-7.8); NEUTROPHILS % (AUTO) 60 % (42-75); PLATELET COUNT 197 10^3/uL (130-400); WHITE BLOOD COUNT 10.7 10^3/uL (4.3-11.0)
[2020-09-16 04:29] LABS: ALBUMIN 3.9 GM/DL (3.2-4.5)
[2020-09-16 04:30] LABS: POTASSIUM 5.6 MMOL/L (3.6-5.0)
[2020-09-16 04:31] LABS: CALCIUM 9.3 MG/DL (8.5-10.1)
[2020-09-16 04:32] LABS: TOTAL PROTEIN 7.9 GM/DL (6.4-8.2)
[2020-09-16 04:34] LABS: BILIRUBIN,TOTAL 0.7 MG/DL (0.1-1.0)
[2020-09-16 04:36] LABS: CREATININE SERUM 0.98 MG/DL (0.60-1.30)
[2020-09-16 05:11] LABS: FIBRIN DEGRADATION PRODUCTS 0.57 UG/ML (0.00-0.49); INR 1.1 (0.8-1.4)
[2020-09-16] MEDS ORDERED: morphine INJ 10 MG/ML 1ML (SYR OR VIAL) IVP STA (05:18)
--- NOTE | 2020-09-16 05:53 | Diagnostic Imaging Report ---
CHEST 1 VIEW, AP/PA ONLY Indication: Chest pain. Comparison: 05/23/2019 Findings: Unchanged enlargement of the cardiac silhouette. No consolidation within the visualized lungs. Posterior lower lobes are poorly evaluated by portable radiography. No pleural effusion or pneumothorax. Impression: 1. No acute cardiopulmonary process by portable radiography. Dictated by: Dictated on workstation # [id number]
[2020-09-16] MEDS ORDERED: ONDANSETRON 4 MG/2 ML (SDV) Z0FRAN IVP PRN (06:15)
[2020-09-16] MEDS ORDERED: LEVOTHYROXINE 50 MCG (LEVOTHROID) TAB PO SCH (07:00)
--- NOTE | 2020-09-16 08:40 | Consultation-Cardiology ---
HPI-Cardiology Cardiology Consultation Date of Consultation 09/16/20 Date of Admission Time Seen by Provider: 08:35 Indication: Chest pain HPI Patient is an 84 y/o female with hx of chronic afib, HTN, HLP. Presented to the ER with complaints of chest pain, onset yesterday morning after breakfast. States pain was sharp stabbing sensation worse with palpation and deep inspiration. Reports pain not relieved by SL NG, but was relieved by Morphine. C/o epigastric pain at this time. Denies any dyspnea, dizziness or lightheadedness. Home Medications & Allergies Allergies: Coded Allergies: No Known Drug Allergies (Verified , 09/09/07) Home Medication List Reviewed: Yes AYG-Mstmat-Ihhtaw Hx Patient Social History Marital Status: Employed/Student: retired Recreational Drug Use: No Drug of Choice: Denies Smoking Status: Never a Smoker Recent Hopitalizations: No (HEART CATH 10/2017) Have you traveled recently?: No Alcohol Use?: No Immunizations Up To Date Tetanus Booster (TDap): Unknown Date of Pneumonia Vaccine: Jan 11, 2016 Past Medical History HTN, HLP, afib Family Medical History Significant Family History: Hypertension Family Medical Hx Discussed below Review of Systems-General Review of Systems Constitutional: see HPI; No chills, No fever; malaise, weakness EENTM: see HPI, no symptoms reported Respiratory: no symptoms reported, see HPI Cardiovascular: see HPI, chest pain, edema; No Hx of Intervention, No palpitations, No syncope, No vascular heart diseas, No other Gastrointestinal: heartburn Genitourinary: no symptoms reported, see HPI Musculoskeletal: see HPI; No back pain, No joint pain Skin: see HPI; No pruritus, No rash Psychiatric/Neurological: See HPI; Denies Anxiety, Denies Depressed, Denies Headache All Other Systems Reviewed Negative Unless Noted: Yes Reviewed Test Results Reviewed Test Results Lab Laboratory Tests 09/16/20 04:05: White Blood Count 10.7, Red Blood Count 4.19, Hemoglobin 13.9, Hematocrit 41, Mean Corpuscular Volume 98, Mean Corpuscular Hemoglobin 33, Mean Corpuscular Hemoglobin Concent 34, Red Cell Distribution Width 13.7, Platelet Count 197, Mean Platelet Volume 11.3, Immature Granulocyte % (Auto) 1, Neutrophils (%) (Auto) 60, Lymphocytes (%) (Auto) 25, Monocytes (%) (Auto) 13H, Eosinophils (%) (Auto) 1, Basophils (%) (Auto) 0, Neutrophils # (Auto) 6.4, Lymphocytes # (Auto) 2.6, Monocytes # (Auto) 1.4H, Eosinophils # (Auto) 0.2, Basophils # (Auto) 0.0, Immature Granulocyte # (Auto) 0.1, Sodium Level 139, Potassium Level 5.6H, Chloride Level 104, Carbon Dioxide Level 25, Anion Gap 10, Blood Urea Nitrogen 18, Creatinine 0.98, Estimat Glomerular Filtration Rate 54, BUN/Creatinine Ratio 18, Glucose Level 119H, Calcium Level 9.3, Corrected Calcium 9.4, Magnesium Level 2.0, Total Bilirubin 0.7, Aspartate Amino Transf (AST/SGOT) 58H, Alanine Aminotransferase (ALT/SGPT) 31, Alkaline Phosphatase 75, Myoglobin 79.5, Troponin I < 0.028, C-Reactive Protein High Sensitivity 7.73H, B-Type Natriuretic Peptide 87.2, Total Protein 7.9, Albumin 3.9, Procalcitonin 0.05, SARS-CoV-2 RNA (RT-PCR) Not Detected 09/16/20 04:33: Prothrombin Time 15.0H, INR Comment 1.1, Activated Partial Thromboplast Time 36H , D-Dimer 0.57H ECG Impression ECG Initial ECG Rhythm: A Fib/Flutter Initial ECG Impression: Atrial Fibrillation Physical Exam Physical Exam Vital Signs Vital Signs - First Documented 09/16/20 03:35 Temp 36.9 Pulse 101 Resp 16 B/P (MAP) 147/114 (125) Pulse Ox 95 O2 Delivery Nasal Cannula O2 Flow Rate 2.0 Capillary Refill : Less Than 3 Seconds Height, Weight, BMI Height: 5'4.00" Weight: 235lbs. 2.0oz. 106.605478fr; 40.21 BMI Method:Stated General Appearance: No Apparent Distress, WD/WN, Moderate Distress, Obese HEENT: PERRL/EOMI, Pharynx Normal, Moist Mucous Membranes Neck: Full Range of Motion, Normal Inspection Respiratory: Chest Non Tender, Lungs Clear, Normal Breath Sounds, No Accessory Muscle Use Cardiovascular: No Edema, Normal Peripheral Pulses, Irregularly Irregular Gastrointestinal: Normal Bowel Sounds, Non Tender, Soft Extremity: Normal Capillary Refill, Normal Inspection, No Pedal Edema Neurologic/Psychiatric: Alert, Oriented x3 Skin: Normal Color, Warm/Dry A/P-Cardiology Admission Diagnosis Chest pain Chronic afib HTN HLP Assessment/Plan Chest pain, nonspecific etiology, worse with deep inspiration and palpation, c/o some epigastic pain as well. EKG showing afib without acute ST changes, troponin negative. Planning for LST later today and plannning to refer to Surgery for possibly EGD if stress test is negative. Nonobstructive CAD per cardiac catheterization in 2018 Chronic afib, maintained on Eliquis HTN, restart home BP medications and continue to monitor HLP, maintained on statin Hypothyroidism Obesity Thank you for allowing us to participate in the management of Ms. Noble. This is Georgina Lewis PA-C, as a scribe for Dr. Hunt. Patient was seen and evaluated with Georgina, I examined the patient and interviewed the patient and discussed the management plan and consultation with Georgina, agree with the current scribed note. Patient had episode of chest pain, atypical in presentation, reporting improvement with combination of nitroglycerin and morphine, EKG did not show any acute changes, cardiac enzymes were negative. I plan to evaluate Lexiscan stress test today and consider endoscopy Clinical Quality Measures AMI/AHF: ASA po Prior to arrival: No GEORGINA CULLEN September 16, 2020 08:40 HAILEE HUNT MD September 16, 2020 09:31
[2020-09-16] MEDS ORDERED: REGADENOSON 0.4 MG/5 ML SYR (LEXISCAN) IV ONE ×2 (08:45→12:08)
[2020-09-16] MEDS: APIXABAN 5 MG (ELIQUIS) TABLET PO SCH ×2 (09:13→20:20)
[2020-09-16] MEDS: ASPIRIN E.C. 81 MG (ECOTRIN) TAB PO SCH (09:13)
[2020-09-16] MEDS: morphine INJ 4 MG/ML 1 ML (VIAL/SYRINGE) IVP PRN ×2 (09:16→14:21)
[2020-09-16] MEDS ORDERED: MULT-1029 PO (10:03)
[2020-09-16] MEDS ORDERED: DILT120C85 PO (10:03)
[2020-09-16] MEDS ORDERED: UBID100C17 PO (10:03)
[2020-09-16] MEDS ORDERED: CHOL10007 PO (10:03)
[2020-09-16] MEDS ORDERED: AMLO-250 PO (10:03)
[2020-09-16] MEDS ORDERED: APIX5TAB PO (10:03)
[2020-09-16] MEDS ORDERED: CALC-823 PO (10:03)
[2020-09-16] MEDS ORDERED: LEVO75TA6 PO (10:03)
--- NOTE | 2020-09-16 10:36 | History & Physical ---
History of Present Illness HPI/Chief Complaint CC: Chest pain HPI: This is an 84[facility] patient of mine with a PMH of chronic AFIB on Eliquis who presented to the ER after a one day history of chest pain. She had gone to [facility] in [place] with the complaint yesterday, EKG was done and they recommended ER visit. She declined at that time but this morning it worsened, prompting a visit. Stress test will be scheduled today and if that is negative, Dr. Burden will initiated an EGD in case hiatal hernia is the cause. Source: patient, RN/MD Exam Limitations: no limitations Date Seen 09/16/20 Time Seen by a Provider: 11:00 Attending Physician Romeo Delgado MD PCP Ling Benitez DO Referring Physician Date of Admission September 16, 2020 at 05:39 Home Medications & Allergies Home Medications Reviewed patient Home Medication Reconciliation performed by pharmacy medication reconciliations food service technician and/or nursing. Patients Allergies have been reviewed. Allergies Allergies Coded Allergies No Known Drug Allergies (Verified09/09/07) Past Dkgoelp-Aulnqc-Oueugg Hx Past Med/Social Hx: Reviewed Nursing Past Med/Soc Hx, Reviewed and Corrections made Patient Social History Marrital Status: Employed/Student: retired Alcohol Use: Denies Use Recreational Drug Use: No Drug of Choice: Denies Smoking Status: Never a Smoker Recent Foreign Travel: No Contact w/other who traveled: No Recent Hopitalizations: No (HEART CATH 10/2017) Recent Infectious Disease Expo: No Immunizations Up To Date Tetanus Booster (TDap): Unknown Date of Pneumonia Vaccine: Jan 11, 2016 Seasonal Allergies Seasonal Allergies: No Past Medical History Surgeries: Hysterectomy, Orthopedic Currently Using CPAP: No Currently Using BIPAP: No Cardiac: Atrial Fibrillation, Deep Vein Thrombosis, High Cholesterol, Hypertension Reproductive: No Sexually Transmitted Disease: No Menopausal Genitourinary: Renal Failure Gastrointestinal: Polyps Musculoskeletal: Degenerate Disk Disease, Chronic Back Pain Hearing Impairment: Hard of Hearing Cancer: Skin History of Blood Disorders: No Adverse Reaction to Blood Flores: No Family History Hypertension Review of Systems Constitutional: see HPI Cardiovascular: chest pain Physical Exam Physical Exam Vital Signs Vital Signs - First Documented 09/16/20 03:35 Temp 36.9 Pulse 101 Resp 16 B/P (MAP) 147/114 (125) Pulse Ox 95 O2 Delivery Nasal Cannula O2 Flow Rate 2.0 Capillary Refill : Less Than 3 Seconds Height, Weight, BMI Height: 5'4.00" Weight: 235lbs. 2.0oz. [id number]; 40.21 BMI Method:Stated General Appearance: No Apparent Distress, WD/WN, Chronically ill, Moderate Distress, Obese HEENT: PERRL/EOMI, Pharynx Normal, Moist Mucous Membranes Neck: Full Range of Motion, Normal Inspection Respiratory: Chest Non Tender, Lungs Clear, Normal Breath Sounds, No Accessory Muscle Use Cardiovascular: No Edema, Normal Peripheral Pulses, Irregularly Irregular Gastrointestinal: Normal Bowel Sounds, Non Tender, Soft Extremity: Normal Capillary Refill, Normal Inspection, No Pedal Edema Neurologic/Psychiatric: Alert, Oriented x3 Skin: Normal Color, Warm/Dry Results Results/Procedures Labs Laboratory Tests 09/16/20 04:05 Patient resulted labs reviewed. Assessment/Plan Admission Diagnosis Assessment: Chest pain AF h/o DVT OAC HTN HLP h/o PNA DJD spine Gout Plan: Home meds OAC EST EGD? Admission Status: Observation Diagnosis/Problems Diagnosis/Problems (1) Chest pain Status: Acute Qualifiers: Chest pain type: unspecified Qualified Codes: R07.9 - Chest pain, unspecified (2) Anticoagulant long-term use Status: Chronic (3) Hypertension Status: Chronic (4) Spinal stenosis Status: Chronic (5) Hypothyroidism Status: Chronic (6) Gout Status: Chronic Clinical Quality Measures AMI/AHF: ASA po Prior to arrival: LING Walker DO September 16, 2020 10:36
[2020-09-16] MEDS ORDERED: CATHETER FLUSH 10 ML SYR IV PRN (11:00)
[2020-09-16] MEDS ORDERED: APIXABAN 5 MG (ELIQUIS) TABLET PO SCH (21:00)
[2020-09-17 03:28] LABS: TRIGLYCERIDES 107 MG/DL (<150); VLDL CHOLESTEROL 21 MG/DL (5-40)
[2020-09-17 03:33] LABS: CHOLESTEROL 156 MG/DL (< 200); HDL CHOLESTEROL 45 MG/DL (40-60)
[2020-09-17 03:48] VITALS: BP 132/98
[2020-09-17 05:40] LABS: BASOPHILS % (AUTO) 0 % (0-10); EOSINOPHILS # (AUTO) 0.2 10^3/uL (0.0-0.3); EOSINOPHILS % (AUTO) 2 % (0-10); HEMATOCRIT 40 % (35-52); HEMOGLOBIN 13.2 g/dL (11.5-16.0); LYMPHOCYTES # (AUTO) 2.1 10^3/uL (1.0-4.0); LYMPHOCYTES % (AUTO) 23 % (12-44); MEAN CORPUSCULAR HEMOGLOBIN 33 pg (25-34); MEAN CORPUSCULAR HGB CONC 33 g/dL (32-36); MEAN CORPUSCULAR VOLUME 101 fL (80-99); MEAN PLATELET VOLUME 12.4 fL (9.0-12.2); MONOCYTES # (AUTO) 1.1 10^3/uL (0.0-1.0); MONOCYTES % (AUTO) 12 % (0-12); NEUTROPHILS # (AUTO) 5.7 10^3/uL (1.8-7.8); NEUTROPHILS % (AUTO) 62 % (42-75); PLATELET COUNT 206 10^3/uL (130-400); WHITE BLOOD COUNT 9.1 10^3/uL (4.3-11.0)
[2020-09-17 05:43] LABS: ALBUMIN 3.6 GM/DL (3.2-4.5)
[2020-09-17 05:44] LABS: CHLORIDE 103 MMOL/L (98-107); POTASSIUM 4.2 MMOL/L (3.6-5.0); SODIUM 138 MMOL/L (135-145)
[2020-09-17 05:45] LABS: CALCIUM 9.4 MG/DL (8.5-10.1)
[2020-09-17 05:46] LABS: GLUCOSE 103 MG/DL (70-105)
[2020-09-17 05:47] LABS: CARBON DIOXIDE 23 MMOL/L (21-32)
[2020-09-17 05:48] LABS: BILIRUBIN,TOTAL 0.6 MG/DL (0.1-1.0)
--- NOTE | 2020-09-17 05:48 | Progress Note ---
Subjective Date Seen by a Provider: September 17, 2020 Objective Exam Last Set of Vital Signs Vital Signs Date Time Temp Pulse Resp B/P (MAP) Pulse Ox O2 Delivery O2 Flow Rate FiO2 09/17/20 03:48 36.6 89 16 132/98 (109) 96 Room Air 09/16/20 08:00 2.00 Capillary Refill : Less Than 3 Seconds I&O Intake and Output 09/17/20 00:00 Intake Total 150 ml Output Total 500 ml Balance -350 ml Intake Oral 150 ml Output Urine Total 500 ml # Voids 2 Daily Weight Change No Results Lab Laboratory Tests 09/16/20 10:06: Troponin I < 0.028 09/17/20 02:25: Sodium Level 138, Potassium Level 4.2, Chloride Level 103, Carbon Dioxide Level 23, Anion Gap 12, Glucose Level 103, Calcium Level 9.4, Corrected Calcium 9.7, Total Bilirubin 0.6, Total Protein 7.0, Albumin 3.6, Triglycerides Level 107, Cholesterol Level 156, LDL Cholesterol Direct 95, VLDL Cholesterol 21, HDL Cholesterol 45 Diagnosis/Problems Diagnosis/Problems (1) Chest pain Status: Acute Qualifiers: Qualified Codes: R07.9 - Chest pain, unspecified (2) Anticoagulant long-term use Status: Chronic (3) Hypertension Status: Chronic (4) Spinal stenosis Status: Chronic (5) Hypothyroidism Status: Chronic (6) Gout Status: Chronic Clinical Quality Measures AMI/AHF: ASA po Prior to arrival: VIOLA Walker DO September 17, 2020 05:48
[2020-09-17 05:49] LABS: ALKALINE PHOSPHATASE 68 U/L (40-136); CREATININE SERUM 0.88 MG/DL (0.60-1.30); GFR ESTIMATED > 60
[2020-09-17 05:51] LABS: BUN/CREATININE RATIO 18
[2020-09-17 05:52] LABS: ALANINE AMINOTRANSFERASE 26 U/L (0-55)
--- NOTE | 2020-09-17 07:47 | Cardiology Progress Note ---
Subjective Date Seen by Provider: September 17, 2020 Time Seen by Provider: 07:46 Subjective/Events-last exam Patient is laying down in bed, feeling better, still have mild chest discomfort Review of Systems General: No Chills, No Night Sweats, No Fatigue, No Malaise, No Appetite, No Other HEENT: No Head Aches, No Visual Changes, No Eye Pain, No Ear Pain, No Dysphasia, No Sinus Congestion, No Post Nasal Drip, No Sore Throat, No Other Pulmonary: No Dyspnea, No Cough, No Pleuritic Chest Pain, No Other Cardiovascular: Chest Pain; No: Palpitations, Orthopnea, Paroxysmal Noc. Dyspnea, Edema, Lt Headedness, Other Objective-Cardiology Exam Last Set of Vital Signs Vital Signs 09/16/20 09/17/20 08:00 03:48 Temp 36.6 Pulse 89 Resp 16 B/P (MAP) 132/98 (109) Pulse Ox 96 O2 Delivery Room Air O2 Flow Rate 2.00 Capillary Refill : Less Than 3 Seconds I&O Intake and Output 09/17/20 00:00 Intake Total 150 ml Output Total 500 ml Balance -350 ml Intake Oral 150 ml Output Urine Total 500 ml # Voids 2 Daily Weight Change No General: Alert, Oriented X3, Cooperative HEENT: Atraumatic, PERRLA Neck: Supple, No JVD, No Thyromegaly Lungs: Clear to Auscultation, Normal Air Movement Heart: Normal S1, Normal S2, Other (Atrial fibrillation) Abdomen: Normal Bowel Sounds, Soft, No Tenderness, No Hepatosplenomegaly, No Masses Extremities: No Clubbing, No Cyanosis, No Edema, Normal Pulses, No Tenderness/Swelling Skin: No Rashes, No Breakdown, No Significant Lesion Neuro: Normal Gait, Normal Speech, Strength at 5/5 X4 Ext, Normal Tone, Sensation Intact Psych/Mental Status: Mental Status NL, Mood NL Results Lab Laboratory Tests 09/17/20 02:25 A/P-Cardiology Admission Diagnosis Chest pain Chronic afib HTN HLP Assessment/Plan Chest pain, nonspecific etiology, abnormal stress test with anterior wall ischemia, had a cardiac catheterization 2017, discussed the management plan recommended left heart catheterization possible PTCA. Nonobstructive CAD per cardiac catheterization in 2018 Chronic afib, maintained on Eliquis HTN, restart home BP medications and continue to monitor HLP, maintained on statin Hypothyroidism Obesity Clinical Quality Measures AMI/AHF: ASA po Prior to arrival: HAILEE Chaudhary MD September 17, 2020 07:47
--- NOTE | 2020-09-17 07:49 | Conscious Sedation/ASA ---
Conscious Sedation Pre-Proced Time 07:48 ASA Score 3 For ASA 3 and 4: Consider anesthesia and medical clearance. Also, for patients with a history of failed moderate sedation consider anesthesia. Airway Lungs Heart ASA score ASA 1: a normal healthy patient ASA 2: a patient with a mild systemic disease (mid diabetes, controlled hypertension, obesity x ASA 3: a patient with a severe systemic disease that limits activity (angina, COPD, prior Myocardial infarction) ASA 4: a patient with an incapacitating disease that is a constant threat to life (CHF, renal failure) ASA 5: a moribund patient not expected to survive 24 hrs. (ruptured aneurysm) ASA 6: a declared brain- patient whose organs are being harvested. For emergent operations, add the letter E after the classification Mallampati Classification Grade 3 Sedation Plan Analgesia, Amnesia, Plan communicated to team members, Discussed options with patient/fam, Discussed risks with patient/fam The patient is an appropriate candidate to undergo the planned procedure, sedation, and anesthesia. The patient immediately re-assessed prior to indication. HAILEE POE MD September 17, 2020 07:48
[2020-09-17 08:00] VITALS: BP 141/92
[2020-09-17] MEDS ORDERED: fentaNYL INJ 100 MCG/2 ML AMP ONE (08:56)
[2020-09-17] MEDS ORDERED: LIDOCAINE 1% INJ 20 ML 20 ML VIAL ONE (08:56)
[2020-09-17] MEDS ORDERED: MIDAZOLAM 5 MG/5 ML (VERSED) VIAL ONE (08:56)
[2020-09-17] MEDS ORDERED: NS IV 1000 ML 1,000 ML ONE (08:56)
[2020-09-17] MEDS ORDERED: HEParin (CATH LAB) 2,000 ML IV ONE (08:56)
[2020-09-17] MEDS ORDERED: CALCIUM CARBONATE 500 MG (TUMS) TAB.CHEW PO SCH (09:00)
[2020-09-17] MEDS ORDERED: MULTIVIT W/MINERALS TAB (THERAGRAN M) PO SCH (09:00)
[2020-09-17] MEDS ORDERED: amLODIPine 5 MG (NORVASC) TAB PO SCH (09:00)
[2020-09-17] MEDS ORDERED: FUROSEMIDE 20 MG (LASIX) TAB PO SCH (09:00)
[2020-09-17] MEDS: ASPIRIN E.C. 81 MG (ECOTRIN) TAB PO SCH (09:00)
[2020-09-17] MEDS ORDERED: dilTIAZem120 MG (CARDIZEM CD) CAP PO SCH (09:00)
[2020-09-17] MEDS: LEVOTHYROXINE 75 MCG (LEVOTHROID) TABLET PO SCH ×2 (09:00→13:04)
[2020-09-17] MEDS ORDERED: NON-FORMULARY MEDICATION 1 EA EA (Ubidecarenone (Coq-10) 100 MG) PO SCH (09:00)
[2020-09-17] MEDS ORDERED: ALLOPURINOL 100 MG (ZYLOPRIM) TAB PO SCH (09:00)
[2020-09-17] MEDS ORDERED: VITAMIN D3 25 MCG (1,000 UNITS) TABLET PO SCH (09:00)
[2020-09-17] MEDS ORDERED: VERAPAMIL 5 MG/2 ML (CALAN) VIAL IV ONE (09:33)
[2020-09-17] MEDS ORDERED: HEParin 1000 UNIT/ML (10ML VIAL) FOR BOLUS ONE (09:33)
[2020-09-17] MEDS ORDERED: NITRO DRIP 25000 MCG/D5W 250 ML IV ONE (09:33)
--- NOTE | 2020-09-17 10:42 | Cardiology Stress Test Report ---
Stress Test Report Date of Procedure/Referring: Date of Procedure: September 16, 2020 PCP Romeo Delgado MD Admitting Physician Ling Benitez DO Indications: CP Baseline Heart Rate: 88 Baseline Blood Pressure: Blood Pressure Systolic: 132 Blood Pressure Diastolic: 98 Baseline Vitals Vital Signs Date Time Temp Pulse Resp B/P (MAP) Pulse Ox O2 Delivery O2 Flow Rate FiO2 09/16/20 03:35 Nasal Cannula 2.0 09/16/20 03:35 36.9 101 16 147/114 (125) 95 Baseline EKG: Baseline EKG: a fib Summary After explaining the procedure to the patient, she signed a consent and then brought to the stress nuclear laboratory. Patient received 0.4 mg Lexiscan for stress test, ECG, heart rate and blood pressure were monitored continuously. Resting and stress dose of radio tracer were injected, imaging was acquired and reviewed in short axis, horizontal long axis and vertical long axis views. TID: 1.11 SSS: 6 SDS: 6 EF: 57 1. Patient tolerated Lexiscan well 2. Baseline atrial fibrillation persisted during test 3. Breast attenuation with reversible ischemia involving the mid to apical anterior wall 4. Normal left ventricular size, EF 57%, gated images unreliable due to underlying atrial fibrillation HAILEE POE MD September 17, 2020 10:42 am
[2020-09-17] MEDS ORDERED: NS IV 1000 ML 1,000 ML IV SCH (10:45)
--- NOTE | 2020-09-17 10:46 | Cardiac Cath Report ---
Cardiac Cath Report Physician (s)/Postie (s) Physician HAILEE POE MD Pre-Procedure Diagnosis Pre-Procedure Diagnosis: Chest pain Post-Procedure Note Procedure Start Date: September 17, 2020 Name of Procedure: Left heart catheterization Aortic arch angiogram Findings/Procedure Note PROCEDURE NOTE: 84-year-old lady with history of coronary artery disease, atrial fibrillation, admitted with chest pain, had an abnormal stress test scheduled for cardiac catheterization. After explaining the procedure to the patient, all pros and cons were explained, all questions were answered. The patient signed the consent and then she was placed on the cardiac catheterization laboratory. Groin was prepped SL fashion local anesthesia was used. Sheath placed in the right radial artery, I had difficulty advancing the wire through the brachial artery, used baby J-wire, the brachiocephalic artery was significantly tortuous I exchanged a wire to regular J-wire and advanced through tortuous brachiocephalic artery then to the arch and down to the left ventricle. Left ventricular pressure was measured no left ventriculogram was done, pullback LV to aorta was done then I evaluated the right and the left coronary system then pulled the catheter up to the aortic arch and aortic arch angiogram was done At the end of the procedure the sheath was removed. Vascular band was used FINDINGS: Hemodynamics LV 122/7, end-diastolic pressure of 7 Aorta 119/80 mean of 85 ANATOMY: Left Main is free of obstructive disease Left Anterior Descending has mild disease in the distal LAD nonobstructive disease Left Circumflex has mild disease no obstructive disease Right Coronary Artery has mild disease with no obstructive disease LV Gram was not done, pressure was measured Aorta evaluation done with aortic arch angiogram showing normal aortic arch no dissection or aneurysm, the brachiocephalic artery is significantly tortuous with no obstructive disease, left carotid and left subclavian arteries are normal CONCLUSION: 1. Mild coronary artery disease nonobstructive disease 2. Normal left ventricular end-diastolic pressure 3. Normal aortic arch, tortuous right brachiocephalic artery, otherwise normal left carotid and left subclavian arteries DISCUSSION AND RECOMMENDATION: Chest pain is probably noncardiac, medical therapy is recommended Anesthesia Type: Conscious Sedation Estimated blood loss (mL): 10 ml Contrast Amount: 45 ml Total Radiation Dose: 416 mGy Post-Procedure Diagnosis Post-operative diagnosis: Chest pain Coronary artery disease Atrial fibrillation Hypertension HAILEE POE MD September 17, 2020 10:46 am
--- NOTE | 2020-09-17 10:47 | Discharge Inst-Post CATH ---
Discharge Inst-CATH/EP Problems Reviewed?: Yes Post Cardiac Cath/EP D/C Inst Follow Up/Plan Appointment with Dr. Zhang's office in 2 to 4 weeks <b>CARDIAC CATH/EP PROCEDURE DISCHARGE INSTRUCTIONS</b> ACTIVITY * Go Home directly and rest. * Limit activity of the leg (or wrist if it was used) for 7 days including aer obics, swimming, jogging, bicycling, etc. * Restrict stair-climbing for 7 days if possible, if not, climb up with your non-cath leg, then bring together on the same step. * Avoid lifting, pushing, pulling or excessive movement of the affected extremi ty for 7 days. * Customary sexual activity may be resumed after 2 days-use caution not to use a position that strains or causes pain to the affected extremity. * No driving for 24 hours. * NO SMOKING. * Avoid straining for bowel movements for 7 days. * Gentle walking on level ground is allowed. * Returning to work will depend on the type of procedure and the results. Your doctor will discuss this with you. CALL YOUR DOCTOR FOR ANY OF THE FOLLOWING: *If bleeding from the puncture site occurs- Apply gentle pressure to site with clean cloth and call your doctor or EMS. * If a knot or lump forms under the skin, increases in size, or causes pain. * If bruising appears to be worsening or moving further down your leg instead of disappearing. * Temperature above 101 F. CARE OF YOUR GROIN INCISION; * Bruising or purple discoloration of the skin near the puncture site is common. * You may shower only, no bathtub bathing for 5 days. Be careful to avoid slipping as your leg may feel stiff. * If a closure device was used on your femoral artery, please see the attached guide regarding care of the device and your leg. * Leave dressing on FOR 24 hours. CARE OF YOUR WRIST INCISION; * Bruising or purple discoloration of the skin near the puncture site is common. * You may shower. * DO NOT submerge wrist. * Leave dressing on FOR 24 hours. HAILEE POE MD September 17, 2020 10:47 am
[2020-09-17] MEDS ORDERED: BACL10TA PO (11:45)
--- NOTE | 2020-09-17 11:46 | Discharge Summary ---
Diagnosis/Chief Complaint Date of Admission September 16, 2020 at 05:39 Date of Discharge Discharge Date: September 17, 2020 Discharge Time: 1300 Discharge Diagnosis Assessment: Chest pain with abnl EST prompting cath which revealed no evidence of intervention requirement AF h/o DVT OAC HTN HLP h/o PNA DJD spine Gout Plan: Home meds OAC EST EGD? DC home EGD outpatient Discharge Summary Discharge Physical Examination Allergies: Coded Allergies: No Known Drug Allergies (Verified , 09/09/07) Vitals & I&Os Vital Signs Date Time Temp Pulse Resp B/P (MAP) Pulse Ox O2 Delivery O2 Flow Rate FiO2 09/17/20 14:20 09/17/20 12:00 77 11 92 Room Air 09/17/20 08:50 36.4 09/16/20 08:00 2.00 General Appearance: Alert, Oriented X3, Cooperative Respiratory: Clear to Auscultation Cardiovascular: Regular Rate Psych/Mental Status: Mental Status NL Hospital Course Was the Problem List Reviewed?: Yes Hospital Course: Pt had an uneventful hospital course. She was admitted for chest pain. Troponins were all negative, stress test did show abnormality, cardiac cath was performed which showed no evidence of any significant coronary arteries that needed any intervention. She will have EGD as an outpatient, she was restarted on all of her home medications and I refilled her Baclofen to [facility] [place]. Labs (last 24 hrs) Laboratory Tests 09/16/20 04:05: White Blood Count 10.7, Red Blood Count 4.19, Hemoglobin 13.9, Hematocrit 41, Mean Corpuscular Volume 98, Mean Corpuscular Hemoglobin 33, Mean Corpuscular Hemoglobin Concent 34, Red Cell Distribution Width 13.7, Platelet Count 197, Mean Platelet Volume 11.3, Immature Granulocyte % (Auto) 1, Neutrophils (%) (Auto) 60, Lymphocytes (%) (Auto) 25, Monocytes (%) (Auto) 13H, Eosinophils (%) (Auto) 1, Basophils (%) (Auto) 0, Neutrophils # (Auto) 6.4, Lymphocytes # (Auto) 2.6, Monocytes # (Auto) 1.4H, Eosinophils # (Auto) 0.2, Basophils # (Auto) 0.0, Immature Granulocyte # (Auto) 0.1, Sodium Level 139, Potassium Level 5.6H, Chloride Level 104, Carbon Dioxide Level 25, Anion Gap 10, Blood Urea Nitrogen 18, Creatinine 0.98, Estimat Glomerular Filtration Rate 54, BUN/Creatinine Ratio 18, Glucose Level 119H, Calcium Level 9.3, Corrected Calcium 9.4, Magnesium Level 2.0, Total Bilirubin 0.7, Aspartate Amino Transf (AST/SGOT) 58H, Alanine Aminotransferase (ALT/SGPT) 31, Alkaline Phosphatase 75, Myoglobin 79.5, Troponin I < 0.028, C-Reactive Protein High Sensitivity 7.73H, B-Type Natriuretic Peptide 87.2, Total Protein 7.9, Albumin 3.9, Procalcitonin 0.05, SARS-CoV-2 RNA (RT-PCR) Not Detected 09/16/20 04:33: Prothrombin Time 15.0H, INR Comment 1.1, Activated Partial Thromboplast Time 36H , D-Dimer 0.57H 09/16/20 10:06: Troponin I < 0.028 09/17/20 02:25: White Blood Count 9.1, Red Blood Count 4.01, Hemoglobin 13.2, Hematocrit 40, Mean Corpuscular Volume 101H, Mean Corpuscular Hemoglobin 33, Mean Corpuscular Hemoglobin Concent 33, Red Cell Distribution Width 13.7, Platelet Count 206, Mean Platelet Volume 12.4H, Immature Granulocyte % (Auto) 0, Neutrophils (%) (Auto) 62, Lymphocytes (%) (Auto) 23, Monocytes (%) (Auto) 12, Eosinophils (%) (Auto) 2, Basophils (%) (Auto) 0, Neutrophils # (Auto) 5.7, Lymphocytes # (Auto) 2.1, Monocytes # (Auto) 1.1H, Eosinophils # (Auto) 0.2, Basophils # (Auto) 0.0, Immature Granulocyte # (Auto) 0.0, Sodium Level 138, Potassium Level 4.2, Chloride Level 103, Carbon Dioxide Level 23, Anion Gap 12, Blood Urea Nitrogen 16, Creatinine 0.88, Estimat Glomerular Filtration Rate > 60, BUN/Creatinine Ratio 18, Glucose Level 103, Calcium Level 9.4, Corrected Calcium 9.7, Total Bilirubin 0.6, Aspartate Amino Transf (AST/SGOT) 28, Alanine Aminotransferase (ALT/SGPT) 26, Alkaline Phosphatase 68, Total Protein 7.0, Albumin 3.6, Triglycerides Level 107, Cholesterol Level 156, LDL Cholesterol Direct 95, VLDL Cholesterol 21, HDL Cholesterol 45 Pending Labs Laboratory Tests 09/16/20 04:05: White Blood Count 10.7, Red Blood Count 4.19, Hemoglobin 13.9, Hematocrit 41, Mean Corpuscular Volume 98, Mean Corpuscular Hemoglobin 33, Mean Corpuscular Hemoglobin Concent 34, Red Cell Distribution Width 13.7, Platelet Count 197, Mean Platelet Volume 11.3, Immature Granulocyte % (Auto) 1, Neutrophils (%) (Auto) 60, Lymphocytes (%) (Auto) 25, Monocytes (%) (Auto) 13, Eosinophils (%) (Auto) 1, Basophils (%) (Auto) 0, Neutrophils # (Auto) 6.4, Lymphocytes # (Auto) 2.6, Monocytes # (Auto) 1.4, Eosinophils # (Auto) 0.2, Basophils # (Auto) 0.0, Immature Granulocyte # (Auto) 0.1, Sodium Level 139, Potassium Level 5.6, Chloride Level 104, Carbon Dioxide Level 25, Anion Gap 10, Blood Urea Nitrogen 18, Creatinine 0.98, Estimat Glomerular Filtration Rate 54, BUN/Creatinine Ratio 18, Glucose Level 119, Calcium Level 9.3, Corrected Calcium 9.4, Magnesium Level 2.0, Total Bilirubin 0.7, Aspartate Amino Transf (AST/SGOT) 58, Alanine Conte otransferase (ALT/SGPT) 31, Alkaline Phosphatase 75, Myoglobin 79.5, Troponin I < 0.028, C-Reactive Protein High Sensitivity 7.73, B-Type Natriuretic Peptide 87.2, Total Protein 7.9, Albumin 3.9, Procalcitonin 0.05, SARS-CoV-2 RNA (RT- PCR) Not Detected 09/16/20 04:33: Prothrombin Time 15.0, INR Comment 1.1, Activated Partial Thromboplast Time 36, D-Dimer 0.57 09/16/20 10:06: Troponin I < 0.028 09/17/20 02:25: White Blood Count 9.1, Red Blood Count 4.01, Hemoglobin 13.2, Hematocrit 40, Mean Corpuscular Volume 101, Mean Corpuscular Hemoglobin 33, Mean Corpuscular Hemoglobin Concent 33, Red Cell Distribution Width 13.7, Platelet Count 206, Mean Platelet Volume 12.4, Immature Granulocyte % (Auto) 0, Neutrophils (%) (Auto) 62, Lymphocytes (%) (Auto) 23, Monocytes (%) (Auto) 12, Eosinophils (%) (Auto) 2, Basophils (%) (Auto) 0, Neutrophils # (Auto) 5.7, Lymphocytes # (Auto) 2.1, Monocytes # (Auto) 1.1, Eosinophils # (Auto) 0.2, Basophils # (Auto) 0.0, Immature Granulocyte # (Auto) 0.0, Sodium Level 138, Potassium Level 4.2, Chloride Level 103, Carbon Dioxide Level 23, Anion Gap 12, Blood Urea Nitrogen 16, Creatinine 0.88, Estimat Glomerular Filtration Rate > 60, BUN/Creatinine Ratio 18, Glucose Level 103, Calcium Level 9.4, Corrected Calcium 9.7, Total Bilirubin 0.6, Aspartate Amino Transf (AST/SGOT) 28, Alanine Aminotransferase ( ALT/SGPT) 26, Alkaline Phosphatase 68, Total Protein 7.0, Albumin 3.6, Triglycerides Level 107, Cholesterol Level 156, LDL Cholesterol Direct 95, VLDL Cholesterol 21, HDL Cholesterol 45 Discharge Home Medications: Active Scripts Active Baclofen 10 Mg Tablet 10 Mg PO TID PRN Reported Vitamin D3 (Cholecalciferol (Vitamin D3)) 25 Mcg Capsule 25 Mcg PO DAILY Coq-10 (Ubidecarenone) 100 Mg Capsule 100 Mg PO DAILY Calcium (Calcium Carbonate) 500 Mg Tablet 500 Mg PO DAILY Centrum Silver Tablet (Multivit-Min/FA/Lycopene/Lut) 1 Each Tablet 1 Each PO DAILY Levothyroxine Sodium 75 Mcg Tablet 75 Mcg PO DAILY Diltiazem ER (Diltiazem HCl) 120 Mg Capsule.er 120 Mg PO DAILY Eliquis (Apixaban) 5 Mg Tablet 5 Mg PO BID Amlodipine Besylate 5 Mg Tablet 5 Mg PO DAILY Allopurinol 100 Mg Tablet 100 Mg PO DAILY Furosemide 20 Mg Tablet 20 Mg PO DAILY Potassium Chloride 10 Meq Capsule.er 10 Meq PO DAILY Instructions to patient/family Please see electronic discharge instructions given to patient. Diagnosis/Problems Diagnosis/Problems (1) Chest pain Status: Acute Qualifiers: Qualified Codes: R07.9 - Chest pain, unspecified (2) Anticoagulant long-term use Status: Chronic (3) Hypertension Status: Chronic (4) Spinal stenosis Status: Chronic (5) Hypothyroidism Status: Chronic (6) Gout Status: Chronic Clinical Quality Measures AMI/AHF: ASA po Prior to arrival: VIOLA Walker DO September 17, 2020 11:46
[2020-09-17 12:00] VITALS: BP 135/95
== END 2020-09-17 14:40 | disposition home or self-care (01) ==
LOC: EDUNIT# 03:35 → ER 03:37 → UNDOADMOB 05:39 → ICU 05:39 → CATH 06:21 → UNDODISOB 09-17 14:40
PROVIDERS: ATTEND Internal Medicine
DX: I25.10 Atherosclerotic heart disease of native coronary artery without angina pectoris (principal); I48.91 Unspecified atrial fibrillation; E78.00 Pure hypercholesterolemia, unspecified; E03.9 Hypothyroidism, unspecified; I12.9 Hypertensive chronic kidney disease with stage 1 through stage 4 chronic kidney disease, or unspecified chronic kidney disease; N18.9 Chronic kidney disease, unspecified; G89.29 Other chronic pain; M48.00 Spinal stenosis, site unspecified; M54.9 Dorsalgia, unspecified; M10.9 Gout, unspecified; Z79.899 Other long term (current) drug therapy; Z79.01 Long term (current) use of anticoagulants; Z79.890 Hormone replacement therapy
CPT/HCPCS: 36221; 71045; 78452; 80053 ×2; 80061; 83735; 83874; 83880; 84145; 84484; 85025 ×2; 85379; 85610; 85730; 86141; 87636; 93005 ×2; 93017; 93041; 93458; 99284; A9502; C1769; C1894; G0378; 36415

== ENCOUNTER 2022-03-21 09:24 | Inpatient (IN) | payer MEDICARE, OTHER ==
[~2022-03-21] VITALS: Ht 162.3 cm; Wt 97.7 kg
[~2022-03-21 09:24] MED LIST changes: +AMLO-250 PO; +APIX5TAB PO; +BACL10TA PO; -BENA40TA5 PO; +BENA40TA84 PO; +CALC-823 PO; +CHOL10007 PO; +DILT120C85 PO; +LEVO75TA6 PO; +MULT-1029 PO; +UBID100C17 PO
[2022-03-21] MEDS ORDERED: NS IV 1000 ML 1,000 ML IV SCH (09:45)
[2022-03-21] MEDS ORDERED: ACETAMINOPHEN 500 MG TAB (TYLENOL) PO ONE (09:45)
--- NOTE | 2022-03-21 09:45 | ED General ---
General Chief Complaint: Cardiac/General Problems Stated Complaint: HEART TROUBLE Nursing Triage Note: ARRIVED VIA WC TO ROOM 07 WITH WHO STATES SHE IS HAVING LOW BP AND IS REALLY WEAK. PT IS SLUMPED IN CHIAR BUT ARROUSABLE AND ALERT WHEN TALKED TOO. PT STATES SHE IS SOA THAT BEGAN LAST WEEK. HAS AN APPT WITH DR WISE TODAY. Source of Information: Patient, Family, RN/MD Exam Limitations: No Limitations History of Present Illness Date Seen by Provider: Mar 21, 2022 Time Seen by Provider: 09:28 Initial Comments 86-year-old female with past medical history of hypertension, HFpEF, hyperlipidemia, A. fib on Eliquis, hypothyroidism coming in with due to low blood pressure readings at home and general weakness. Started feeling short of breath quite some time ago, really seems unchanged to her, may be slightly worse over the past couple days. Has been is noticed over the past several days some lower blood pressures in the 90s, rarely in the 80s systolic. This morning it was 99 over 60s. He saw her slumped over on the toilet, but responsive. She was able to ambulate to the car and ambulate to the ER. Denies any chest pain, abdominal pain, nausea, vomiting, diarrhea, focal weakness or numbness, or any other concerns. Has been eating and drinking slightly less. Has not taken her morning Eliquis yet. Allergies and Home Medications Allergies Coded Allergies: No Known Drug Allergies (Verified , 09/09/07) Patient Home Medication List Home Medication List Reviewed: Yes Allopurinol (Allopurinol) 100 Mg Tablet, 100 MG PO DAILY, (Reported) Entered as Reported by: ELANA JOSHI on 11/06/17 0828 Amlodipine Besylate (Amlodipine Besylate) 5 Mg Tablet, 5 MG PO DAILY, (Reported) Entered as Reported by: FEMI PRINCE on 09/16/20 1003 Apixaban (Eliquis) 5 Mg Tablet, 5 MG PO BID, (Reported) Entered as Reported by: FEMI PRINCE on 09/16/20 1003 Baclofen (Baclofen) 10 Mg Tablet, 10 MG PO TID PRN for MUSCLE CRAMPS Prescribed by: VIOLA SPEARS on 09/17/20 1145 Calcium Carbonate (Calcium) 500 Mg Tablet, 500 MG PO DAILY, (Reported) Entered as Reported by: FEMI PRINCE on 09/16/201002 Cholecalciferol (Vitamin D3) (Vitamin D3) 25 Mcg Capsule, 25 MCG PO DAILY, (Repo rted) Entered as Reported by: FEMI PRINCE on 09/16/201002 Diltiazem HCl (Diltiazem ER) 120 Mg Capsule.er, 120 MG PO DAILY, (Reported) Entered as Reported by: FEMI PRINCE on 09/16/201002 Furosemide (Furosemide) 20 Mg Tablet, 20 MG PO DAILY, (Reported) Entered as Reported by: ELANA JOSHI on 11/06/17827 Levothyroxine Sodium (Levothyroxine Sodium) 75 Mcg Tablet, 75 MCG PO DAILY, (Reported) Entered as Reported by: FEMI PRINCE on 09/16/201002 Multivit-Min/FA/Lycopene/Lut (Centrum Silver Tablet) 1 Each Tablet, 1 EACH PO DAILY, (Reported) Entered as Reported by: FEMI PRINCE on 09/16/201002 Potassium Chloride (Potassium Chloride) 10 Meq Capsule.er, 10 MEQ PO DAILY, (Reported) Entered as Reported by: ELANA JOSHI on 11/06/17827 Ubidecarenone (Coq-10) 100 Mg Capsule, 100 MG PO DAILY, (Reported) Entered as Reported by: FEMI PRINCE on 09/16/201002 Review of Systems Review of Systems Constitutional: No fever EENTM: No blurred vision Respiratory: see HPI Cardiovascular: see HPI Gastrointestinal: no symptoms reported Genitourinary: frequency Musculoskeletal: no symptoms reported Skin: no symptoms reported Psychiatric/Neurological: No Symptoms Reported Hematologic/Lymphatic: No Symptoms Reported Immunological/Allergic: no symptoms reported All Other Systems Reviewed Negative Unless Noted: Yes Past Vuoihbo-Gbarjh-Ltwefp Hx Patient Social History Tobacco Use?: No Substance use?: No Alcohol Use?: No Immunizations Up To Date Tetanus Booster (TDap): Unknown Seasonal Allergies Seasonal Allergies: No Past Medical History Surgeries: Yes (hyst,back surgery,R middle finger cyst removed) Hysterectomy, Orthopedic Respiratory: No Currently Using CPAP: No Currently Using BIPAP: No Cardiac: Yes Atrial Fibrillation, Deep Vein Thrombosis, High Cholesterol, Hypertension Neurological: No Reproductive Disorders: No [employer]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 Sexually Transmitted Disease: No Genitourinary: Yes Renal Failure Gastrointestinal: Yes Polyps Musculoskeletal: Yes (LEFT KNEE TORN MEDIAL MENISCUS, Spinal stenosis) Degenerate Disk Disease, Chronic Back Pain Endocrine: No HEENT: Yes Hearing Impairment: Hard of Hearing Cancer: Yes Skin Psychosocial: No Integumentary: No Blood Disorders: No Adverse Reaction/Blood Tranf: No Family Medical History Hypertension Physical Exam Vital Signs Vital Signs - First Documented 03/21/22 09:25 Temp 36.4 Pulse 102 Resp 16 B/P (MAP) 121/82 (95) Pulse Ox 96 O2 Delivery Room Air Capillary Refill : Less Than 3 Seconds Height, Weight, BMI Height: 5'4.00" Weight: 235lbs. 2.0oz. 106.899261hw; 39.00 BMI Method:Stated General Appearance: Other (Eyes closed but responding to voice, answering questions appropriately) Eyes: Bilateral Eye Normal Inspection, Bilateral Eye PERRL, Bilateral Eye EOMI HEENT: PERRL/EOMI, Normal ENT Inspection, Pharynx Normal Neck: Full Range of Motion, Normal Inspection, Non Tender, Supple Respiratory: Chest Non Tender, Lungs Clear, Normal Breath Sounds, No Accessory Muscle Use, No Respiratory Distress Cardiovascular: No Edema, Normal Peripheral Pulses, Irregularly Irregular Gastrointestinal: Normal Bowel Sounds, Non Tender, Soft; No Distended, No Guarding Back: Normal Inspection, No CVA Tenderness, No Vertebral Tenderness Extremity: Normal Capillary Refill, Normal Inspection, Normal Range of Motion, Non Tender, No Calf Tenderness, No Pedal Edema Neurologic/Psychiatric: Alert, Oriented x3, No Motor/Sensory Deficits, Normal Mood/Affect, sponge maker II-XII Norm as Tested Skin: Normal Color, Warm/Dry Lymphatic: No Adenopathy Focused Exam Lactate Level 03/21/22 09:56: Lactic Acid Level 1.62 Lactic Acid Level Laboratory Tests Test 03/21/22 09:56 Lactic Acid Level 1.62 MMOL/L (0.50-2.00) Progress/Results/Core Measures Suspected Sepsis SIRS Temperature: Pulse: 102 Respiratory Rate: 16 Laboratory Tests 03/21/22 09:56: White Blood Count 7.6 Blood Pressure 121 /82 Mean: 95 03/21/22 09:56: Lactic Acid Level 1.62 Laboratory Tests 03/21/22 09:56: Creatinine 1.09, INR Comment 1.2, Platelet Count 384, Total Bilirubin 0.4 Results/Orders Lab Results Laboratory Tests Test 03/21/22 09:38 03/21/22 09:56 03/21/22 10:04 Range/Units Glucometer 113 H 70-110 MG/DL White Blood Count 7.6 4.3-11.0 10^3/uL Red Blood Count 3.20 L 3.80-5.11 10^6/uL Hemoglobin 7.7 L 11.5-16.0 g/dL Hematocrit 26 L 35-52 % Mean Corpuscular Volume 80 80-99 fL Mean Corpuscular Hemoglobin 24 L 25-34 pg Mean Corpuscular Hemoglobin Concent 30 L 32-36 g/dL Red Cell Distribution Width 17.9 H 10.0-14.5 % Platelet Count 384 130-400 10^3/uL Mean Platelet Volume 9.8 9.0-12.2 fL Immature Granulocyte % (Auto) 1 % Neutrophils (%) (Auto) 54 42-75 % Lymphocytes (%) (Auto) 33 12-44 % Monocytes (%) (Auto) 10 0-12 % Eosinophils (%) (Auto) 2 0-10 % Basophils (%) (Auto) 1 0-10 % Neutrophils # (Auto) 4.1 1.8-7.8 10^3/uL Lymphocytes # (Auto) 2.5 1.0-4.0 10^3/uL Monocytes # (Auto) 0.8 0.0-1.0 10^3/uL Eosinophils # (Auto) 0.2 0.0-0.3 10^3/uL Basophils # (Auto) 0.0 0.0-0.1 10^3/uL Immature Granulocyte # (Auto) 0.0 0.0-0.1 10^3/uL Prothrombin Time 15.4 H 12.2-14.7 SEC INR Comment 1.2 0.8-1.4 Activated Partial Thromboplast Time 30 24-35 SEC Sodium Level 138 135-145 MMOL/L Potassium Level 4.2 3.6-5.0 MMOL/L Chloride Level 105 98-107 MMOL/L Carbon Dioxide Level 23 21-32 MMOL/L Anion Gap 10 5-14 MMOL/L Blood Urea Nitrogen 23 H 7-18 MG/DL Creatinine 1.09 0.60-1.30 MG/DL Estimat Glomerular Filtration Rate 49 BUN/Creatinine Ratio 21 Glucose Level 112 H 70-105 MG/DL Lactic Acid Level 1.62 0.50-2.00 MMOL/L Calcium Level 9.5 8.5-10.1 MG/DL Corrected Calcium 9.7 8.5-10.1 MG/DL Magnesium Level 2.2 1.6-2.4 MG/DL Total Bilirubin 0.4 0.1-1.0 MG/DL Aspartate Amino Transf (AST/SGOT) 57 H 5-34 U/L Alanine Aminotransferase (ALT/SGPT) 39 0-55 U/L Alkaline Phosphatase 84 40-136 U/L Troponin I < 0.028 <0.028 NG/ML B-Type Natriuretic Peptide 88.7 <100.0 PG/ML Total Protein 7.3 6.4-8.2 GM/DL Albumin 3.7 3.2-4.5 GM/DL Urine Color YELLOW Urine Clarity CLEAR Urine pH 6.0 5-9 Urine Specific [place] >=1.030 1.016-1.022 Urine Protein TRACE H NEGATIVE Urine Glucose (UA) NEGATIVE NEGATIVE Urine Ketones NEGATIVE NEGATIVE Urine Nitrite NEGATIVE NEGATIVE Urine Bilirubin 1+ H NEGATIVE Urine Urobilinogen 0.2 < = 1.0 MG/DL Urine Leukocyte Esterase NEGATIVE NEGATIVE Urine RBC (Auto) NEGATIVE NEGATIVE Urine RBC NONE /HPF Urine WBC NONE /HPF Urine Squamous Epithelial Cells NONE /HPF Urine Crystals NONE /LPF Urine Bacteria NEGATIVE /HPF Urine Casts NONE /LPF Urine Mucus MODERATE H /LPF Urine Culture Indicated NO My Orders Orders - EMILY NOVA MD Ekg Tracing (03/21/22 09:27) Cbc With Automated Diff (03/21/22 09:37) Comprehensive Metabolic Panel (03/21/22 09:37) Magnesium (03/21/22 09:37) Protime With Inr (03/21/22 09:37) Partial Thromboplastin Time (03/21/22 09:37) Troponin I Marina (03/21/22 09:37) Ua Culture If Indicated (03/21/22 09:37) Chest 1 View, Ap/Pa Only (03/21/22 09:37) Ed Iv/Invasive Line Start (03/21/22 09:37) Ns Iv 1000 Ml (Sodium Chloride 0.9%) (03/21/22 09:45) Acetaminophen Tablet (Tylenol Tablet) (03/21/22 09:45) Bnp Marina (03/21/22 09:43) Blood Culture (03/21/22 09:45) Ed Iv/Invasive Line Start (03/21/22 09:45) Vital Signs Adult Sepsis Patie Q15M (03/21/22 09:45) Lactic Acid Analyzer (03/21/22 09:45) Ed Admission (Communication) (03/21/22 11:01) Medications Given in ED Current Medications Medications Dose Ordered Sig/Raegan Route Start Time Stop Time Status Last Admin Dose Admin Acetaminophen 1,000 mg ONCE ONCE PO 03/21/22 09:45 03/21/22 09:46 DC 03/21/22 10:31 1,000 MG Vital Signs/I&O 03/21/22 03/21/22 09:25 09:52 Temp 36.4 Pulse 102 73 90 Resp 16 B/P (MAP) 121/82 (95) 115/76 (89) 112/61 (78) Pulse Ox 96 O2 Delivery Room Air Capillary Refill : Less Than 3 Seconds Blood Pressure Mean: 95 Progress Note : Progress Note 86-year-old female with above history coming in due to general weakness and low blood pressures at home. ABCs were intact and vitals were stable on here. She was not orthostatic on exam. Hemoglobin went from the 12 range to just above 7. She is on Eliquis. My concern would be for a GI bleed. She has not had a stool in roughly 2 days. She has not had her Eliquis dose yet today, and effectively should be out of her system. Dr. Spears actually was present in the emergency department and we discussed the patient's case on her arrival. She will be admitted to the intensive care unit under inpatient status for further evaluation and management. I then contacted Dr. Blake for consultation. ECG Initial ECG Impression Date: Mar 21, 2022 Initial ECG Impression Time: 09:39 Initial ECG Rate: 96 Initial ECG Rhythm: Normal Sinus Comment Narrow QRS, normal axis, no significant ST elevation, subtle depression and T wave inversions in the inferior and lateral leads Diagnostic Imaging Diagonstic Imaging: Xray Plain Films/CT/US/NM/MRI: chest Comments [facility] [place] [place] NAME: DAKOTAH MACEDO MED REC#: [id number] PT STATUS: REG ER : 1935 PHYSICIAN: EMILY NOVA MD ADMIT DATE: 03/21/22/ER Signed Date of Exam:03/21/22 CHEST 1 VIEW, AP/PA ONLY EXAMINATION: Chest 1 view HISTORY: Shortness of breath. Syncopal episode. COMPARISON: 09/16/2020. FINDINGS: The lung volumes are normal. No focal consolidation is seen. No large pleural effusion or pneumothorax is seen. Stable prominent cardiac silhouette with loop recorder in place. No acute osseous abnormality is seen. IMPRESSION: 1. Stable cardiomegaly. No overt pulmonary edema. Dictated by: Dictated on workstation # [id number] Dict: 03/21/22 1033 Trans: 03/21/22 1042 [id number] Interpreted by: MARCELINO YATES DO Electronically signed by: MARCELINO YATES DO 03/21/22 1042 Departure Impression Primary Impression: Symptomatic anemia Additional Impressions: Transient hypotension Weakness Disposition: ADMITTED INPATIENT Condition: Stable Admissions Decision to Admit Reason: Admit from ER (General) Decision to Admit/Date: Mar 21, 2022 Time/Decision to Admit Time: 10:55 Departure-Patient Inst. Referrals: VIOLA SPEARS DO (PCP/Family) Primary Care Physician EMILY NOVA MD Mar 21, 2022 09:45
[2022-03-21 09:52] VITALS: BP_SYST 112; BP_SYST 115; BP_DIAS 61; BP_DIAS 76
[2022-03-21 10:09] LABS: BASOPHILS % (AUTO) 1 % (0-10); EOSINOPHILS # (AUTO) 0.2 10^3/uL (0.0-0.3); EOSINOPHILS % (AUTO) 2 % (0-10); HEMATOCRIT 26 % (35-52); HEMOGLOBIN 7.7 g/dL (11.5-16.0); LYMPHOCYTES # (AUTO) 2.5 10^3/uL (1.0-4.0); LYMPHOCYTES % (AUTO) 33 % (12-44); MEAN CORPUSCULAR HEMOGLOBIN 24 pg (25-34); MEAN CORPUSCULAR HGB CONC 30 g/dL (32-36); MEAN CORPUSCULAR VOLUME 80 fL (80-99); MEAN PLATELET VOLUME 9.8 fL (9.0-12.2); MONOCYTES # (AUTO) 0.8 10^3/uL (0.0-1.0); MONOCYTES % (AUTO) 10 % (0-12); NEUTROPHILS # (AUTO) 4.1 10^3/uL (1.8-7.8); NEUTROPHILS % (AUTO) 54 % (42-75); PLATELET COUNT 384 10^3/uL (130-400); WHITE BLOOD COUNT 7.6 10^3/uL (4.3-11.0)
[2022-03-21 10:12] LABS: CLARITY,URINE CLEAR; COLOR,URINE YELLOW; GLUCOSE, URINE (UA) NEGATIVE (NEGATIVE); KETONES,URINE NEGATIVE (NEGATIVE); LEUKOCYTE ESTERASE ,URINE NEGATIVE (NEGATIVE); NITRITE,URINE NEGATIVE (NEGATIVE); PROTEIN,URINE TRACE (NEGATIVE)
[2022-03-21 10:16] LABS: ALBUMIN 3.7 GM/DL (3.2-4.5); CHLORIDE 105 MMOL/L (98-107); POTASSIUM 4.2 MMOL/L (3.6-5.0); SODIUM 138 MMOL/L (135-145)
[2022-03-21 10:17] LABS: CALCIUM 9.5 MG/DL (8.5-10.1); INR 1.2 (0.8-1.4); PROTHROMBIN TIME PATIENT 15.4 SEC (12.2-14.7)
[2022-03-21 10:18] LABS: GLUCOSE 112 MG/DL (70-105); TOTAL PROTEIN 7.3 GM/DL (6.4-8.2)
[2022-03-21 10:19] LABS: CARBON DIOXIDE 23 MMOL/L (21-32)
[2022-03-21 10:20] LABS: BILIRUBIN,TOTAL 0.4 MG/DL (0.1-1.0)
[2022-03-21 10:22] LABS: ALKALINE PHOSPHATASE 84 U/L (40-136); CREATININE SERUM 1.09 MG/DL (0.60-1.30); GFR ESTIMATED 49
[2022-03-21 10:23] LABS: BUN/CREATININE RATIO 21
[2022-03-21 10:24] LABS: MAGNESIUM 2.2 MG/DL (1.6-2.4)
[2022-03-21 10:25] LABS: ALANINE AMINOTRANSFERASE 39 U/L (0-55)
--- NOTE | 2022-03-21 10:37 | Diagnostic Imaging Report ---
EXAMINATION: Chest 1 view HISTORY: Shortness of breath. Syncopal episode. COMPARISON: 09/16/2020. FINDINGS: The lung volumes are normal. No focal consolidation is seen. No large pleural effusion or pneumothorax is seen. Stable prominent cardiac silhouette with loop recorder in place. No acute osseous abnormality is seen. IMPRESSION: 1. Stable cardiomegaly. No overt pulmonary edema. Dictated by: Dictated on workstation # [id number]
[2022-03-21 10:53] LABS: BACTERIA,URINE NEGATIVE /HPF; BILIRUBIN,URINE 1+ (NEGATIVE)
[2022-03-21] MEDS ORDERED: BISACODYL 10 MG SUPP (DULCOLAX) PR PRN (11:45)
[2022-03-21] MEDS ORDERED: ONDANSETRON 4 MG (ZOFRAN) ORAL DISSOLVE TAB PO PRN (11:45)
[2022-03-21] MEDS ORDERED: ONDANSETRON 4 MG/2 ML (SDV) Z0FRAN IV PRN (11:45)
[2022-03-21] MEDS ORDERED: morphine INJ 4 MG/ML 1 ML (VIAL/SYRINGE) IV PRN (11:45)
[2022-03-21] MEDS ORDERED: MILK OF MAGNESIA 400 MG/5 ML 30 ML UDC PO PRN (11:45)
[2022-03-21] MEDS ORDERED: CALCIUM CARBONATE 500 MG (TUMS) TAB.CHEW PO PRN (11:45)
[2022-03-21] MEDS ORDERED: diphenhydrAMINE 25 MG TAB (BENADRYL) PO PRN (11:45)
[2022-03-21] MEDS ORDERED: ANTACID SUSP 30 ML UDC (MYLANTA) PO PRN (11:45)
[2022-03-21] MEDS ORDERED: LACTULOSE SYRUP 10GM/15ML (ENULOSE) 30ML UDC PO PRN (11:45)
[2022-03-21] MEDS ORDERED: polyethylene glycoL POWDER 17 GM (MIRALAX) PACK PO PRN (11:45)
[2022-03-21] MEDS ORDERED: NS IV 500 ML 500 ML IV PRN (11:45)
[2022-03-21] MEDS ORDERED: diphenhydrAMINE 50 MG/ML INJ (BENADRYL) IVP PRN (11:45)
[2022-03-21] MEDS ORDERED: MELATONIN 3 MG TABLET PO PRN (11:45)
[2022-03-21] MEDS ORDERED: NS IV 500 ML 500 ML IV SCH ×2 (11:45)
--- NOTE | 2022-03-21 11:47 | History & Physical ---
JENNJOHN 03/21/22 1147: History of Present Illness History of Present Illness Reason for visit/HPI Patient is an 86-year-old female with a history of afib, diastolic HF, and HTN and is a patient of Dr. Spears who presents to the ED on 03/21 with chief complaint of fatigue and hypotension. The patient was scheduled to have an appointment today with Dr. Spears for vertigo. The patient was found by her this morning on the toilet and was able to be aroused and ambulated by herself to the car and from the car to the ED. The patient states that for the past 6 weeks she has had increasing fatigue, lethargy, weakness, and dyspnea on exertion. She states that these symptoms began to worsen more rapidly over the past two weeks. She started with having dyspnea on exertion occasionally, but the past few days has been fatigued and short of breath after any level of exertion. She had an appointment with her computer lab para professional Dr. Means at the end of January and reports that her BP was normal at that time. Home measurements since then have shown a systolic pressure in the 90s and occasionally in the 80s. Her BP when checked at home today was 99 over 60s. The patient also reports that she has been light-headed and has had some near syncopal episodes the past few days with this one being the worst so far. Her states that when he saw her she was extremely pale. The patient reports that she has not been eating much the past few days due to a loss of appetite. The patient reports that her stools have been brown and she has not noticed any melena or hematochezia. She reports that her last colonoscopy was done a long time ago, can't remember exactly when. She also has a chalazion present on her left eye that she states popped Sunday and has been improving. Her states that he made a potato poultice which helped with the irritation and pain and that they had some ointment from a previous chalazion that they have been using as well. CXR showed stable cardiomegaly, no signs of acute changes. EKG showed afib w/ aberrant conduction or PVCs, low QRS voltage in precordial leads, ST deviation and moderate T-wave abnormalities, and possible inferior ischemia. Her Hg is currently 7.7. She is currently awake and alert in her bed and reports that she feels much better after receiving a 1L bolus of NS. She currently feels fatigued and lethargic, but she is able to open her eyes and answer questions clearly. The patient has no other complaints. Date of Admission Mar 21, 2022 at 11:01 Date Seen by a Provider: Mar 21, 2022 Time Seen by a Provider: 11:55 I consulted on this patient on Attending Physician Ling Spears DO Admitting Physician Admitting Physician: Ling Spears DO Attending Physician: Ling Spears DO Consult Allergies and Home Medications Allergies Coded Allergies: No Known Drug Allergies (Verified , 09/09/07) Patient Home Medication List Home Medication List Reviewed: Yes Allopurinol (Allopurinol) 100 Mg Tablet, 100 MG PO DAILY, (Reported) Entered as Reported by: ELANA JOSHI on 11/06/17827 Last Action: Reviewed Amlodipine Besylate (Amlodipine Besylate) 5 Mg Tablet, 5 MG PO DAILY, (Reported) Entered as Reported by: FEMI PRINCE on 09/16/201002 Last Action: Reviewed Apixaban (Eliquis) 5 Mg Tablet, 5 MG PO BID, (Reported) Entered as Reported by: FEMI PRINCE on 09/16/201002 Last Action: Reviewed Benazepril HCl (Benazepril HCl) 40 Mg Tab, 40 MG PO DAILY, (Reported) Entered as Reported by: FEMI PRINCE on 03/21/221551 Last Action: Reviewed Cholecalciferol (Vitamin D3) (Vitamin D3) 25 Mcg Capsule, 25 MCG PO DAILY, (Reported) Entered as Reported by: FEMI PRINCE on 09/16/201002 Last Action: Reviewed Diltiazem HCl (Diltiazem 24Hr ER) 120 Mg Cap.er.24h, 120 MG PO DAILY, (Reported) Entered as Reported by: FEMI PRINCE on 03/21/221551 Last Action: Reviewed Furosemide (Furosemide) 20 Mg Tablet, 20 MG PO DAILY, (Reported) Entered as Reported by: ELANA JOSHI on 11/06/17827 Last Action: Reviewed Levothyroxine Sodium (Levothyroxine Sodium) 75 Mcg Tablet, 75 MCG PO DAILY, (Reported) Entered as Reported by: FEMI PRINCE on 09/16/201002 Last Action: Reviewed Potassium Chloride (Potassium Chloride) 10 Meq Capsule.er, 10 MEQ PO DAILY, (Reported) Entered as Reported by: ELANA JOSHI on 11/06/17 0828 Last Action: Reviewed Ubidecarenone (Coq-10) 100 Mg Capsule, 100 MG PO DAILY, (Reported) Entered as Reported by: FEMI PRINCE on 09/16/20 100 Last Action: Reviewed Vit A/C/E/Zinc/Co (Preservision Areds Softgel) 14,320-226 Capsule, 1 CAP PO DAILY, (Reported) Entered as Reported by: FEMI PRINCE on 03/21/22 1552 Last Action: Reviewed Discontinued Medications Baclofen (Baclofen) 10 Mg Tablet, 10 MG PO TID PRN for MUSCLE CRAMPS Discontinued Reason: No Longer Taking Prescribed by: LING SPEARS on 09/17/20 1145 Last Action: Discontinued Calcium Carbonate (Calcium) 500 Mg Tablet, 500 MG PO DAILY, (Reported) Discontinued Reason: No Longer Taking Entered as Reported by: FEMI PRINCE on 09/16/20 100 Last Action: Discontinued Diltiazem HCl (Diltiazem ER) 120 Mg Capsule.er, 120 MG PO DAILY, (Reported) Discontinued Reason: Duplicate Order Entered as Reported by: FEMI PRINCE on 09/16/201002 Last Action: Discontinued Multivit-Min/FA/Lycopene/Lut (Centrum Silver Tablet) 1 Each Tablet, 1 EACH PO DAILY, (Reported) Discontinued Reason: No Longer Taking Entered as Reported by: FEMI PRINCE on 09/16/201002 Last Action: Discontinued Past Uaxoqwn-Ppppml-Dapxup Hx Patient Social History Marrital Status: Tobacco Use?: No Substance use?: No Alcohol Use?: No Immunizations Up To Date Tetanus Booster (TDap): Unknown Date of Pneumonia Vaccine: Jan 11, 2016 Seasonal Allergies Seasonal Allergies: No Current Status Advance Directives: No Primary Language: Vietnamese Preferred Spoken Language: Vietnamese Past Medical History Surgeries: Hysterectomy, Orthopedic Currently Using CPAP: No Currently Using BIPAP: No Atrial Fibrillation, Deep Vein Thrombosis, High Cholesterol, Hypertension 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 Sexually Transmitted Disease: No Renal Failure Polyps Degenerate Disk Disease, Chronic Back Pain Hearing Impairment: Hard of Hearing Skin Blood Disorders: No Adverse Reaction/Blood Tranf: No Family Medical History Hypertension Review of Systems Constitutional: chills EENTM: other (Left chalazion); No hearing loss, No ear pain, No blurred vision, No double vision Respiratory: No cough; dyspnea on exertion, short of breath; No wheezing Cardiovascular: No chest pain, No edema, No palpitations Gastrointestinal: No abdominal pain, No constipation, No diarrhea; loss of appetite; No nausea, No vomiting Genitourinary: No decreased output, No dysuria, No frequency Musculoskeletal: No joint pain, No muscle pain Skin: No change in hair/nails; hx of skin cancer, other (pallor) Psychiatric/Neurological: Denies Numbness, Denies Paresthesia; Weakness Physical Exam Vital Signs Vital Signs - First Documented 03/21/22 09:25 Temp 36.4 Pulse 102 Resp 16 B/P (MAP) 121/82 (95) Pulse Ox 96 O2 Delivery Room Air Capillary Refill : Less Than 3 Seconds Height, Weight, BMI Height: 5'4.00" Weight: 235lbs. 2.0oz. 106.429026ao; 39.00 BMI Method:Stated General Appearance: No Apparent Distress, WD/WN, Obese HEENT: PERRL/EOMI Neck: Non Tender, Supple Respiratory: Lungs Clear, Normal Breath Sounds, No Accessory Muscle Use Cardiovascular: No Edema, Normal Peripheral Pulses Gastrointestinal: Non Tender, Soft Rectal: Deferred Back: No CVA Tenderness, No Vertebral Tenderness Extremity: Normal Capillary Refill, Non Tender Neurologic/Psychiatric: Alert, Oriented x3 Skin: Warm/Dry, Pallor Lymphatic: No Adenopathy Assessment/Plan Assessment and Plan Anemia Hypotension Possible GI bleed SOB Fatigue Afib Diastolic HF Hypothyroidism HTN HLD Hx DVT Continue IV fluids Hold eliquis Consult surgery Monitor Hg, transfuse as needed Monitor BP, pressors if hypotensive Start on Protonix Admission Diagnosis GI bleed Admission Status: Inpatient Order (span 2 midnights) Reason for Inpatient Admission: GI bleed LING SPEARS DO 03/22/22 0559: Allergies and Home Medications Allergies Coded Allergies: No Known Drug Allergies (Verified , 09/09/07) Patient Home Medication List Allopurinol (Allopurinol) 100 Mg Tablet, 100 MG PO DAILY, (Reported) Entered as Reported by: ELANA JOSHI on 11/06/17 8643 Last Action: Reviewed Amlodipine Besylate (Amlodipine Besylate) 5 Mg Tablet, 5 MG PO DAILY, (Reported) Entered as Reported by: FEMI PRINCE on 09/16/201002 Last Action: Reviewed Apixaban (Eliquis) 5 Mg Tablet, 5 MG PO BID, (Reported) Entered as Reported by: FEMI PRINCE on 09/16/201002 Last Action: Reviewed Benazepril HCl (Benazepril HCl) 40 Mg Tab, 40 MG PO DAILY, (Reported) Entered as Reported by: FEMI PRINCE on 03/21/221551 Last Action: Reviewed Cholecalciferol (Vitamin D3) (Vitamin D3) 25 Mcg Capsule, 25 MCG PO DAILY, (Reported) Entered as Reported by: FEMI PRINCE on 09/16/201002 Last Action: Reviewed Diltiazem HCl (Diltiazem 24Hr ER) 120 Mg Cap.er.24h, 120 MG PO DAILY, (Reported) Entered as Reported by: FEMI PRINCE on 03/21/221551 Last Action: Reviewed Furosemide (Furosemide) 20 Mg Tablet, 20 MG PO DAILY, (Reported) Entered as Reported by: ELANA JOSHI on 11/06/17827 Last Action: Reviewed Levothyroxine Sodium (Levothyroxine Sodium) 75 Mcg Tablet, 75 MCG PO DAILY, (Reported) Entered as Reported by: FEMI PRINCE on 09/16/201002 Last Action: Reviewed Potassium Chloride (Potassium Chloride) 10 Meq Capsule.er, 10 MEQ PO DAILY, (Reported) Entered as Reported by: ELANA JOSHI on 11/06/17827 Last Action: Reviewed Ubidecarenone (Coq-10) 100 Mg Capsule, 100 MG PO DAILY, (Reported) Entered as Reported by: FEMI PRINCE on 09/16/201002 Last Action: Reviewed Vit A/C/E/Zinc/Co (Preservision Areds Softgel) 14,320-226 Capsule, 1 CAP PO DAILY, (Reported) Entered as Reported by: FEMI PRINCE on 03/21/221551 Last Action: Reviewed Discontinued Medications Baclofen (Baclofen) 10 Mg Tablet, 10 MG PO TID PRN for MUSCLE CRAMPS Discontinued Reason: No Longer Taking Prescribed by: LING SPEARS on 09/17/20 1145 Last Action: Discontinued Calcium Carbonate (Calcium) 500 Mg Tablet, 500 MG PO DAILY, (Reported) Discontinued Reason: No Longer Taking Entered as Reported by: FEMI PRINCE on 09/16/201002 Last Action: Discontinued Diltiazem HCl (Diltiazem ER) 120 Mg Capsule.er, 120 MG PO DAILY, (Reported) Discontinued Reason: Duplicate Order Entered as Reported by: FEMI PRINCE on 09/16/201002 Last Action: Discontinued Multivit-Min/FA/Lycopene/Lut (Centrum Silver Tablet) 1 Each Tablet, 1 EACH PO DAILY, (Reported) Discontinued Reason: No Longer Taking Entered as Reported by: FEMI PRINCE on 09/16/201002 Last Action: Discontinued Past Jtbisne-Ixaxxs-Ugbadk Hx Patient Social History Marrital Status: Employed/Student: retired Smoking Status: Never a Smoker Past Medical History Surgeries: Orthopedic Pneumonia Atrial Fibrillation, Chronic Edema/Swelling, Coronary Artery Disease, High Cholesterol, Hypertension Neuropathy Bladder Infection, Renal Failure Gastroesophageal Reflux Arthritis, Chronic Back Pain Review of Systems Constitutional: see HPI, dizziness, malaise, weakness Physical Exam General Appearance: WD/WN, Anxious, Chronically ill, Mild Distress, Other (pale) Eyes: Bilateral Eye Normal Inspection, Bilateral Eye PERRL, Bilateral Eye EOMI HEENT: PERRL/EOMI, Normal ENT Inspection, Pharynx Normal Neck: Full Range of Motion, Normal Inspection, Non Tender, Supple, Carotid Bruit Respiratory: Chest Non Tender, Lungs Clear, Normal Breath Sounds, No Accessory Muscle Use, No Respiratory Distress Cardiovascular: No Edema, No Gallop, No JVD, No Murmur, Normal Peripheral Pulses, Irregularly Irregular Gastrointestinal: Normal Bowel Sounds, No Organomegaly, No Pulsatile Mass, Non Tender, Soft Back: Normal Inspection, No CVA Tenderness, No Vertebral Tenderness Extremity: Normal Capillary Refill, Normal Inspection, Normal Range of Motion, Non Tender, No Calf Tenderness, No Pedal Edema Neurologic/Psychiatric: Alert, Oriented x3, No Motor/Sensory Deficits, Normal Mood/Affect Skin: Normal Color, Warm/Dry Lymphatic: No Adenopathy Assessment/Plan Assessment and Plan ICU Queded orders placed Admission Diagnosis Admission Status: Inpatient Order (span 2 midnights) Reason for Inpatient Admission: GIB AF Supervisory-Addendum Brief Verification & Attestation Participated in pt care: history, MDM, physical Personally performed: exam, history, MDM, supervision of care Care discussed with: Medical Student Procedures: n/a Results interpretation: Verified all documentation Verification and Attestation of Medical Student E/M Service A medical student performed and documented this service in my presence. I reviewed and verified all information documented by the medical student and made modifications to such information, when appropriate. I personally performed the physical exam and medical decision making. Ling Spears, Mar 22, 2022,05:21 JOHN BARAJAS Mar 21, 2022 11:47 LING SPEARS DO Mar 22, 2022 05:23
[2022-03-21 12:28] VITALS: BP 141/96
[2022-03-21] MEDS ORDERED: RT-ALBUTEROL SULF 2.5 MG/3 ML PRE-MIX VIAL INH PRN (12:30)
--- NOTE | 2022-03-21 13:19 | Consultation - Surgery ---
[facility] 03/21/22 1319: History of Present Illness History of Present Illness Patient Consulted On(uri/time) 03/21/22 13:09 Date Seen by Provider: Mar 21, 2022 Time Seen by Provider: 13:09 History of Present Illness Consult requested by Dr. Spears. Dakotah is an 86 yo F with PMH of HTN, HFpEF, A fib on eliquis, hypothyroidism who presented to the ED this morning with complaints of low blood pressure readings at home and weakness. She reports feeling SOB at that time as well that may have been somewhat worse the past few days. She has a BP log that shows readings in the 90s over 60s. Today she reports feeling more tired and weak as well as having a decreased appetite and lightheadedness for the past 3-4 days. Her last BM was 03/19 and was soft without blood or pain. She last had a colonoscopy over 15 years ago and reports she may have had a polyp at that time but is unsure. Had an EGD performed last year in [place] by Dr. Armando due to persistent stomach discomfort and reflux symptoms. She reports it did not show any abnormalities and she was started on Prilosec at that time for her symptoms. No issues with urinating at this time. Denies CP, abdominal pain, N/V/D, SOB at this time. Her hgb is 7.7 today, 08/2020 hgb was 13.2 per chart review. CXR with cardiomegaly and no acute changes. EKG with narrow QRS, normal axis, no significant ST elevation, subtle depression and T wave inversions in the inferior and lateral leads. Troponins were not abnormally elevated. Allergies and Home Medications Allergies Coded Allergies: No Known Drug Allergies (Verified , 09/09/07) Patient Home Medication List Home Medication List Reviewed: Yes Allopurinol (Allopurinol) 100 Mg Tablet, 100 MG PO DAILY, (Reported) Entered as Reported by: ELANA JOSHI on 11/06/17 0828 Amlodipine Besylate (Amlodipine Besylate) 5 Mg Tablet, 5 MG PO DAILY, (Reported) Entered as Reported by: FEMI PRINCE on 09/16/20 1003 Apixaban (Eliquis) 5 Mg Tablet, 5 MG PO BID, (Reported) Entered as Reported by: FEMI PRINCE on 09/16/20 1003 Baclofen (Baclofen) 10 Mg Tablet, 10 MG PO TID PRN for MUSCLE CRAMPS Prescribed by: VIOLA SPEARS on 09/17/20 1145 Calcium Carbonate (Calcium) 500 Mg Tablet, 500 MG PO DAILY, (Reported) Entered as Reported by: FEMI PRINCE on 09/16/20 100 Cholecalciferol (Vitamin D3) (Vitamin D3) 25 Mcg Capsule, 25 MCG PO DAILY, (Reported) Entered as Reported by: FEMI PRINCE on 09/16/20 100 Diltiazem HCl (Diltiazem ER) 120 Mg Capsule.er, 120 MG PO DAILY, (Reported) Entered as Reported by: FEMI PRINCE on 09/16/20 100 Furosemide (Furosemide) 20 Mg Tablet, 20 MG PO DAILY, (Reported) Entered as Reported by: ELANA JOSHI on 11/06/1728 Levothyroxine Sodium (Levothyroxine Sodium) 75 Mcg Tablet, 75 MCG PO DAILY, (Reported) Entered as Reported by: FEMI PRINCE on 09/16/20 100 Multivit-Min/FA/Lycopene/Lut (Centrum Silver Tablet) 1 Each Tablet, 1 EACH PO DAILY, (Reported) Entered as Reported by: FEMI PRINCE on 09/16/20 100 Potassium Chloride (Potassium Chloride) 10 Meq Capsule.er, 10 MEQ PO DAILY, (Reported) Entered as Reported by: ELANA JOSHI on 11/06/17827 Ubidecarenone (Coq-10) 100 Mg Capsule, 100 MG PO DAILY, (Reported) Entered as Reported by: FEMI PRINCE on 09/16/20 100 Past Pqbxhcm-Djzblp-Joszco Hx Patient Social History Drug of Choice: Denies Smoking Status: Never a Smoker Recent Hopitalizations: No (HEART CATH 10/2017) Alcohol Use?: No Have you traveled recently?: No Immunizations Up To Date Tetanus Booster (TDap): Unknown Date of Pneumonia Vaccine: Jan 11, 2016 Date of Influenza Vaccine: Mar 21, 2021 Seasonal Allergies Seasonal Allergies: No Surgeries History of Surgeries: Yes (hyst,back surgery,R middle finger cyst removed) Surgeries: Hysterectomy, Orthopedic Respiratory History of Respiratory Disorde: No Cardiovascular History of Cardiac Disorders: Yes Cardiac Disorders: Atrial Fibrillation, Deep Vein Thrombosis, High Cholesterol, Hypertension Neurological History of Neurological Disord: No Reproductive System Hx Reproductive Disorders: No Sexually Transmitted Disease: No [employer] History: Menopausal Genitourinary History of Genitourinary Disor: Yes Genitourinary Disorders: Renal Failure Gastrointestinal History of Gastrointestinal Di: Yes Gastrointestinal Disorders: Polyps Musculoskeletal History of Musculoskeletal Dis: Yes (LEFT KNEE TORN MEDIAL MENISCUS, Spinal stenosis) Musculoskeletal Disorders: Degenerate Disk Disease, Chronic Back Pain Endocrine History of Endocrine Disorders: No HEENT History of HEENT Disorders: Yes Hearing Impairment: Hard of Hearing Cancer History of Cancer: Yes Cancer: Skin Psychosocial History of Psychiatric Problem: No Integumentary History of Skin or Integumenta: No Blood Transfusions History of Blood Disorders: No Adverse Reaction to a Blood Tr: No Family Medical History Significant Family History: Hypertension Review of Systems-General Constitutional: No chills, No diaphoresis; malaise EENTM: other (chalazion on left upper eyelid); No ear discharge, No hearing loss Respiratory: No cough, No short of breath Cardiovascular: No chest pain, No edema Gastrointestinal: No abdominal pain; loss of appetite; No melena, No nausea Genitourinary: No decreased output, No discharge Musculoskeletal: No back pain, No gout Skin: No change in color, No change in hair/nails Psychiatric/Neurological: Denies Anxiety, Denies Depressed All Other Systems Reviewed Negative Unless Noted: Yes (Negative excepted noted.) Physical Exam-General Problems Physical Exam Vital Signs Vital Signs - First Documented 03/21/22 03/21/22 09:25 12:28 Temp 36.4 Pulse 102 Resp 16 B/P (MAP) 121/82 (95) Pulse Ox 96 O2 Delivery Room Air FiO2 21 Capillary Refill : Less Than 3 Seconds General Appearance: no apparent distress, obese HEENT: PERRL/EOMI, pharynx normal, pale conjunctivae (R), pale conjunctivae (L), other (chalazion on left upper eyelid) Neck: non-tender, supple Respiratory: chest non-tender, no respiratory distress, no accessory muscle use Cardiovascular: normal peripheral pulses, no edema, no JVD Peripheral Pulses: 2+ Radial Pulses (R), 2+ Radial Pulses (L) Gastrointestinal: non tender, soft Rectal: deferred Back: normal inspection, no CVA tenderness Extremities: no pedal edema, no calf tenderness Neurologic/Psychiatric: alert, oriented x 3 Skin: warm/dry, pallor Lymphatic: no adenopathy Data Review Labs Laboratory Tests 03/21/22 09:38: Glucometer 113H 03/21/22 09:56: White Blood Count 7.6, Red Blood Count 3.20L, Hemoglobin 7.7L, Hematocrit 26L, Mean Corpuscular Volume 80, Mean Corpuscular Hemoglobin 24L, Mean Corpuscular Hemoglobin Concent 30L, Red Cell Distribution Width 17.9H, Platelet Count 384, Mean Platelet Volume 9.8, Immature Granulocyte % (Auto) 1, Neutrophils (%) (Auto) 54, Lymphocytes (%) (Auto) 33, Monocytes (%) (Auto) 10, Eosinophils (%) (Auto) 2, Basophils (%) (Auto) 1, Neutrophils # (Auto) 4.1, Lymphocytes # (Auto) 2.5, Monocytes # (Auto) 0.8, Eosinophils # (Auto) 0.2, Basophils # (Auto) 0.0, I mmature Granulocyte # (Auto) 0.0, Prothrombin Time 15.4H, INR Comment 1.2, Activated Partial Thromboplast Time 30, Sodium Level 138, Potassium Level 4.2, Chloride Level 105, Carbon Dioxide Level 23, Anion Gap 10, Blood Urea Nitrogen 23H, Creatinine 1.09, Estimat Glomerular Filtration Rate 49, BUN/Creatinine Ratio 21, Glucose Level 112H, Lactic Acid Level 1.62, Calcium Level 9.5, Corrected Calcium 9.7, Magnesium Level 2.2, Total Bilirubin 0.4, Aspartate Amino Transf (AST/SGOT) 57H, Alanine Aminotransferase (ALT/SGPT) 39, Alkaline Phosphatase 84, Troponin I < 0.028, B-Type Natriuretic Peptide 88.7, Total Protein 7.3, Albumin 3.7 03/21/22 10:04: Urine Color YELLOW, Urine Clarity CLEAR, Urine pH 6.0, Urine Specific [place] >=1.030, Urine Protein TRACEH, Urine Glucose (UA) NEGATIVE, Urine Ketones NEGATIVE, Urine Nitrite NEGATIVE, Urine Bilirubin 1+H, Urine Urobilinogen 0.2, Urine Leukocyte Esterase NEGATIVE, Urine RBC (Auto) NEGATIVE, Urine RBC NONE, Urine WBC NONE, Urine Squamous Epithelial Cells NONE, Urine Crystals NONE, Urine Bacteria NEGATIVE, Urine Casts NONE, Urine Mucus MODERATEH, Urine Culture Indicated NO 03/21/22 12:25: Radiology [facility]. [place], [place] NAME: DAKOTAH MACEDO [facility] REC#: [id number] PT STATUS: REG ER : 1935 PHYSICIAN: EMILY NOVA MD ADMIT DATE: 03/21/22/ER Signed Date of Exam:03/21/22 CHEST 1 VIEW, AP/PA ONLY EXAMINATION: Chest 1 view HISTORY: Shortness of breath. Syncopal episode. COMPARISON: 09/16/2020. FINDINGS: The lung volumes are normal. No focal consolidation is seen. No large pleural effusion or pneumothorax is seen. Stable prominent cardiac silhouette with loop recorder in place. No acute osseous abnormality is seen. IMPRESSION: 1. Stable cardiomegaly. No overt pulmonary edema. Dictated by: Dictated on workstation # [id number] Dict: 03/21/22 1033 Trans: 03/21/22 1042 [id number] Interpreted by: MARCELINO YATES DO Electronically signed by: MARCELINO YATES DO 03/21/22 1042 Assessment/Plan Assessment/Plan Assessment/Plan anemia ?GI bleed hx distant colonoscopy with possible polyp anticoagulant use hypotension track and trend hgb, transfuse as needed - current hgb 7.7 and receiving 1 unit PRBC continue supportive care NPO started on protonix possible EGD tomorrow consider colonoscopy outpatient vs inpatient, she is on eliquis-last dose 03/20, continue to hold Clinical Quality Measures DVT/VTE Risk/Contraindication: Contraindications-Pharm: Other *list below* Other: ARABELLA HOLLINGSWORTH DO 03/21/22 1542: History of Present Illness History of Present Illness History of Present Illness Consult requested by Dr. Spears for suspected GI bleed/hypotension. Patient is a 86-year-old female who has not been feeling well the last few days. She is been having low blood pressure and feeling weak. She has also had slightly increasing shortness of breath over the last few days. She states that her blood pressures have been in the 90 systolic. Patient states that she has not noticed any dark or bloody stools. Her last bowel movement was on the . She has no abdominal pain. She has no reflux symptoms at this time. She is on anticoagulation. She is had a colonoscopy approximately 15 years ago she believes. She recently had an EGD about a year ago in [facility]. She states that they really have not found anything significant on any of her endoscopies except for some polyps. Her hemoglobin today is 7.7. She last took her anticoagulation last night. Allergies and Home Medications Allergies Coded Allergies: No Known Drug Allergies (Verified , 09/09/07) Patient Home Medication List Home Medication List Reviewed: Yes Allopurinol (Allopurinol) 100 Mg Tablet, 100 MG PO DAILY, (Reported) Entered as Reported by: ELANA JOSHI on 11/06/17827 Amlodipine Besylate (Amlodipine Besylate) 5 Mg Tablet, 5 MG PO DAILY, (Reported) Entered as Reported by: FEMI PRINCE on 09/16/20 1003 Apixaban (Eliquis) 5 Mg Tablet, 5 MG PO BID, (Reported) Entered as Reported by: FEMI PRINCE on 09/16/20 1003 Baclofen (Baclofen) 10 Mg Tablet, 10 MG PO TID PRN for MUSCLE CRAMPS Prescribed by: VIOLA SPEARS on 09/17/20 1145 Calcium Carbonate (Calcium) 500 Mg Tablet, 500 MG PO DAILY, (Reported) Entered as Reported by: FEMI PRINCE on 09/16/20 1003 Cholecalciferol (Vitamin D3) (Vitamin D3) 25 Mcg Capsule, 25 MCG PO DAILY, (Reported) Entered as Reported by: FEMI PRINCE on 09/16/20 1003 Diltiazem HCl (Diltiazem ER) 120 Mg Capsule.er, 120 MG PO DAILY, (Reported) Entered as Reported by: FEMI PRINCE on 09/16/20 1003 Furosemide (Furosemide) 20 Mg Tablet, 20 MG PO DAILY, (Reported) Entered as Reported by: ELANA JOSHI on 11/06/1728 Levothyroxine Sodium (Levothyroxine Sodium) 75 Mcg Tablet, 75 MCG PO DAILY, (Reported) Entered as Reported by: FEMI PRINCE on 09/16/20 1003 Multivit-Min/FA/Lycopene/Lut (Centrum Silver Tablet) 1 Each Tablet, 1 EACH PO DAILY, (Reported) Entered as Reported by: FEMI PRINCE on 09/16/20 1003 Potassium Chloride (Potassium Chloride) 10 Meq Capsule.er, 10 MEQ PO DAILY, (Reported) Entered as Reported by: ELANA JOSHI on 11/06/17 0828 Ubidecarenone (Coq-10) 100 Mg Capsule, 100 MG PO DAILY, (Reported) Entered as Reported by: FEMI NIKI on 09/16/20 1003 Past Ephcdmw-Dlsutx-Hsdeum Hx Reviewed Nursing Assessment Reviewed/Agree w Nursing PMH: Yes Family Medical History Significant Family History: No Pertinent Family Hx Review of Systems-General Constitutional: No chills, No diaphoresis EENTM: No ear discharge, No hearing loss Respiratory: No cough, No short of breath Cardiovascular: No chest pain, No edema Gastrointestinal: No abdominal pain; loss of appetite; No melena, No nausea, No vomiting Genitourinary: No decreased output, No discharge Musculoskeletal: No back pain, No gout Skin: No change in color, No change in hair/nails Psychiatric/Neurological: Denies Anxiety, Denies Depressed All Other Systems Reviewed Negative Unless Noted: Yes (Negative excepted noted.) Physical Exam-General Problems Physical Exam General Appearance: WD/WN, no apparent distress, obese HEENT: PERRL/EOMI, normal ENT inspection Neck: non-tender, supple Respiratory: chest non-tender, no respiratory distress, no accessory muscle use Cardiovascular: regular rate, rhythm, no JVD Gastrointestinal: non tender, soft Rectal: deferred Back: normal inspection, no CVA tenderness Extremities: no pedal edema, no calf tenderness Neurologic/Psychiatric: alert, oriented x 3 Skin: warm/dry, pallor Lymphatic: no adenopathy Assessment/Plan Assessment/Plan Assessment/Plan anemia ?GI bleed hx distant colonoscopy with possible polyp long-term current anticoagulant use hypotension track and trend hgb, transfuse as needed - current hgb 7.7 and receiving 1 unit PRBC continue supportive care NPO started on protonix possible EGD tomorrow consider colonoscopy outpatient vs inpatient, she is on eliquis-last dose 03/20, continue to hold Supervisory-Addendum Brief Verification & Attestation Participated in pt care: history, MDM, physical Personally performed: exam, history, MDM, supervision of care Care discussed with: Medical Student Procedures: n/a Results interpretation: Verified all documentation Verification and Attestation of Medical Student E/M Service A medical student performed and documented this service in my presence. I reviewed and verified all information documented by the medical student and made modifications to such information, when appropriate. I personally performed the physical exam and medical decision making. Arabella Nickerson, Mar 21, 2022,15:42 WILMA GALICIA Mar 21, 2022 13:19 ARABELLA NICKERSON DO Mar 21, 2022 15:42
--- NOTE | 2022-03-21 13:20 | Consultation-Cardiology ---
HPI-Cardiology Cardiology Consultation: Date of Consultation 03/21/22 Time Seen by a Provider: 13:30 Date of Admission 03-21-22 Attending Physician Ling Spears DO Admitting Physician Admitting Physician: Ling Spears DO Attending Physician: Ling Spears DO Consulting Physician ADRYAN HALLMAN HPI: Chief Complaint: Hypotension Suspected GIB Ms. Noble is an 86 yr old female admitted to ICU 8 from the ED. She reports over the course of the last several weeks she has had increasing weakness, fatigue, dizziness, SOB and low blood pressure. She reports at home her BP has been in the 90's to upper 80's systolic range. She reports she has had increasing SOB just ambulating from room to room at home. She reports this morning she got up and walked from the bedroom to the kitchen with assist from her . She states once she made it to the chair she was very weak and fatigued. She denies any syncope. She reports her spouse then brought her to the ED. No c/o fever, n/v/d. No c/o LE swelling. She reports she has been taking her medications. She states she is feeling better that she was. No report of bloody or tarry bowel movements. Review of Systems-Cardiology Review of Systems Constitutional: No chills, No fever; lightheadedness, malaise, tiredness Eyes: No vision change Ears/Nose/Throat: No epistaxis, No recent hearing loss Respiratory: As described under HPI Cardiovascular: As described under HPI Gastrointestinal: No abdominal pain, No constipation, No diarrhea, No nausea, No vomiting, No stool coloration changes Genitourinary: No dysuria, No hematuria Musculoskeletal: As describe under HPI Skin: No rash on exposed areas, No ulcerations on exposed areas Psychiatric/Neurological: No anxiety, No depression, No seizure, No focal weakness, No syncope Hematologic: No bleeding abnormalities All Other Systems Reviewed Negative Unless Noted: Yes [id number]-[id number] Hx Patient Social History Marrital Status: Have you traveled recently?: No Alcohol Use?: No Immunizations Up To Date Tetanus Booster (TDap): Unknown Date of Pneumonia Vaccine: Jan 11, 2016 Date of Influenza Vaccine: Mar 21, 2021 Past Medical History PMH As described under Assessment. Family Medical History Family Medical History: Family h/o mother, father, brother and sister having CAD. Father had a CVA. Allergies and Home Medications Allergies Coded Allergies: No Known Drug Allergies (Verified , 09/09/07) Patient Home Medication List Allopurinol (Allopurinol) 100 Mg Tablet, 100 MG PO DAILY, (Reported) Entered as Reported by: ELANA JOSHI on 11/06/17827 Amlodipine Besylate (Amlodipine Besylate) 5 Mg Tablet, 5 MG PO DAILY, (Reported) Entered as Reported by: FEMI PRINCE on 09/16/20 100 Apixaban (Eliquis) 5 Mg Tablet, 5 MG PO BID, (Reported) Entered as Reported by: FEMI PRINCE on 09/16/20 100 Baclofen (Baclofen) 10 Mg Tablet, 10 MG PO TID PRN for MUSCLE CRAMPS Prescribed by: LING SPEARS on 09/17/20 114 Calcium Carbonate (Calcium) 500 Mg Tablet, 500 MG PO DAILY, (Reported) Entered as Reported by: FEMI PRINCE on 09/16/20 100 Cholecalciferol (Vitamin D3) (Vitamin D3) 25 Mcg Capsule, 25 MCG PO DAILY, (Reported) Entered as Reported by: FEMI PRINCE on 09/16/20 100 Diltiazem HCl (Diltiazem ER) 120 Mg Capsule.er, 120 MG PO DAILY, (Reported) Entered as Reported by: FEMI PRINCE on 09/16/201002 Furosemide (Furosemide) 20 Mg Tablet, 20 MG PO DAILY, (Reported) Entered as Reported by: ELANA JOSHI on 11/06/17827 Levothyroxine Sodium (Levothyroxine Sodium) 75 Mcg Tablet, 75 MCG PO DAILY, (Reported) Entered as Reported by: FEMI PRINCE on 09/16/20 100 Multivit-Min/FA/Lycopene/Lut (Centrum Silver Tablet) 1 Each Tablet, 1 EACH PO DAILY, (Reported) Entered as Reported by: FEMI PRINCE on 09/16/201002 Potassium Chloride (Potassium Chloride) 10 Meq Capsule.er, 10 MEQ PO DAILY, ( Reported) Entered as Reported by: ELANA JOSHI on 11/06/17827 Ubidecarenone (Coq-10) 100 Mg Capsule, 100 MG PO DAILY, (Reported) Entered as Reported by: FEMI PRINCE on 09/16/20 1003 Physical Exam-Cardiology Physical Exam Vital Signs/I&O 03/21/22 03/21/22 03/21/22 03/21/22 09:25 09:52 11:45 12:09 Temp 36.4 Pulse 102 73 90 82 90 Resp 16 16 B/P (MAP) 121/82 (95) 115/76 (89) 123/70 112/61 (78) Pulse Ox 96 97 O2 Delivery Room Air Room Air 03/21/22 03/21/22 03/21/22 03/21/22 12:14 12:28 13:00 14:00 Temp 36.4 36.4 Pulse 82 82 88 80 Resp 16 38 20 B/P (MAP) 141/96 (111) 149/120 (130) 145/72 (96) Pulse Ox 99 99 95 95 O2 Delivery Room Air Room Air Room Air FiO2 21 03/21/22 03/21/22 03/21/22 14:26 14:43 14:54 Temp 36.7 36.6 36.7 Pulse 83 84 Resp 12 18 B/P (MAP) 154/87 137/99 Pulse Ox 98 98 O2 Delivery Room Air Room Air Capillary Refill : Less Than 3 Seconds Constitutional: AAO x 3, well-developed, well-nourished HEENT: PERRL, hearing is well preserved, oral hygience is good Neck: No carotid bruit; carotid pulses are 2 + bilaterally Respiratory: No accessory muscle use, No respiratory distress; chest expansion is symmetric, chest is bilaterally symmetric, lungs clear to auscultation Cardiovascular: irregularly irregular; No JVD; S1 and S2 Gastrointestinal: No tender; soft, round; No distended, No guarding; audible bowel sounds Extremities: no lower extremity edema bilateral Neurologic/Psychiatric: grossly intact (moves all extremities) Skin: No rash on exposed areas, No ulcerations on exposed areas Data Review Labs Laboratory Tests 03/21/22 09:38: Glucometer 113H 03/21/22 09:56: White Blood Count 7.6, Red Blood Count 3.20L, Hemoglobin 7.7L, Hematocrit 26L, Mean Corpuscular Volume 80, Mean Corpuscular Hemoglobin 24L, Mean Corpuscular Hemoglobin Concent 30L, Red Cell Distribution Width 17.9H, Platelet Count 384, Mean Platelet Volume 9.8, Immature Granulocyte % (Auto) 1, Neutrophils (%) (Auto) 54, Lymphocytes (%) (Auto) 33, Monocytes (%) (Auto) 10, Eosinophils (%) (Auto) 2, Basophils (%) (Auto) 1, Neutrophils # (Auto) 4.1, Lymphocytes # (Auto) 2.5, Monocytes # (Auto) 0.8, Eosinophils # (Auto) 0.2, Basophils # (Auto) 0.0, Immature Granulocyte # (Auto) 0.0, Prothrombin Time 15.4H, INR Comment 1.2, Activated Partial Thromboplast Time 30, Sodium Level 138, Potassium Level 4.2, Chloride Level 105, Carbon Dioxide Level 23, Anion Gap 10, Blood Urea Nitrogen 23H, Creatinine 1.09, Estimat Glomerular Filtration Rate 49, BUN/Creatinine Ratio 21, Glucose Level 112H, Lactic Acid Level 1.62, Calcium Level 9.5, Corrected Calcium 9.7, Magnesium Level 2.2, Total Bilirubin 0.4, Aspartate Amino Transf (AST/SGOT) 57H, Alanine Aminotransferase (ALT/SGPT) 39, Alkaline Phosphatase 84, Troponin I < 0.028, B-Type Natriuretic Peptide 88.7, Total Protein 7.3, Albumin 3.7 03/21/22 10:04: Urine Color YELLOW, Urine Clarity CLEAR, Urine pH 6.0, Urine Specific [place] >=1.030, Urine Protein TRACEH, Urine Glucose (UA) NEGATIVE, Urine Ketones NEGATIVE, Urine Nitrite NEGATIVE, Urine Bilirubin 1+H, Urine Urobilinogen 0.2, Urine Leukocyte Esterase NEGATIVE, Urine RBC (Auto) NEGATIVE, Urine RBC NONE, Urine WBC NONE, Urine Squamous Epithelial Cells NONE, Urine Crystals NONE, Urine Bacteria NEGATIVE, Urine Casts NONE, Urine Mucus MODERATEH, Urine Culture Indicated NO 03/21/22 12:25: Influenza Type A (RT-PCR) Not Detected, Influenza Type B (RT-PCR) Not Detected, SARS-CoV-2 RNA (RT-PCR) Not Detected Radiology NAME: DAKOTAH NOBLE [facility] REC#: [id number] PT STATUS: REG ER : 1935 PHYSICIAN: EMILY NOVA MD ADMIT DATE: 03/21/22/ER Signed Date of Exam:03/21/22 CHEST 1 VIEW, AP/PA ONLY EXAMINATION: Chest 1 view HISTORY: Shortness of breath. Syncopal episode. COMPARISON: 09/16/2020. FINDINGS: The lung volumes are normal. No focal consolidation is seen. No large pleural effusion or pneumothorax is seen. Stable prominent cardiac silhouette with loop recorder in place. No acute osseous abnormality is seen. IMPRESSION: 1. Stable cardiomegaly. No overt pulmonary edema. Dictated by: Dictated on workstation # [id number] Dict: 03/21/22 1033 Trans: 03/21/22 1042 [id number] Interpreted by: MARCELINO YATES DO Electronically signed by: MARCELINO YATES DO 03/21/22 1042 ECG Impression ECG Initial ECG Impression: Atrial Fibrillation A/P-Cardiology Assessment/Admission Diagnosis Hypotension - likely d/t vol depletion d/t anemia Anemia - suspected GIB - management per medical/surgical services H/O Syncope on 12/17/17 - probably vasovagal in a hot shower. -ILR implanted 12/25/17. -ILR transmission of 06-01-2018 showed a 4 sec pause - BB dc'd at 06-03-18 appt; no significant pauses since (some false positive pauses due to undersensing are reported by the device) - ILR [employer] in July 2021 CAD: - Mild to mod CAD on card cath of October 2017 that was done after MPI of October 23, 2017 was indicative of a small to mod amt of basal anterior ischemia; LVEF 60% - Cardiac cath of 09-17-[address] Hunt showed mild CAD. Normal LVEDP - Echocardiogram of October 25, 2017 showed concentric LVH. LVEF 60-65%. LA mod to severely dilated. Mild to mod regurg. Trivial aortic regurg. Mod TR. PASP 25-30 mmHg PA Fib - of unknown age, first diagnosed on a preop ECG at the [facility] on 10/03/17. NSR on ECG of 01/03/18 - OAC with Eliquis - currently being held Bilateral lower limb discomfort - nonvascular (segmental pressures of Apr 2019 were normal) Chronic back pain - managed by PCP Exertional shortness of breath - chronic, unchanged Chronic joint pain - manged by PCP Obesity - with BMI approx 38 Hypothyroidism - treated with thyroid replacement Hyperlipidemia - but intolerance to statins (h/o liver enz elevation) Chronic bilat leg swelling - likely related to venous insuff Discussion and Recomendations Hypotension likely d/t volume depletion d/t anemia - improved at this time Anemia - undetermined etiology; suspected GIB - management per medical/surgical services - Advise Hgb be kept 8.0 or greater PAF - currently a-fib with controlled rate - OAC with Eliquis - ok to hold Eliquis for now d/t suspected GIB - we advise source of bleeding be determined and treated expeditiously so that OAC can be resumed d/t risk of stroke d/t a-fib - Resume Cardizem CD - home dose Progressive dyspnea - likely d/t anemia - advise echocardiogram to eval structure and function Monitor lab closely Replace electrolytes as indicated Further recs will be based on her hospital course We would like to thank medical services for this consult Clinical Quality Measures DVT/VTE Risk/Contraindication: Contraindications-Pharm: Other *list below* Other: ADRYAN YANG Mar 21, 2022 13:20
[2022-03-21] MEDS: NOREPINEPHRINE 8 MG/250 ML 250 ML IV SCH (13:35)
[2022-03-21] MEDS: NS IV 1000 ML 1,000 ML IV SCH ×2 (13:36→19:00)
[2022-03-21 14:26] VITALS: BP 154/87
[2022-03-21] MEDS ORDERED: dilTIAZem120 MG (CARDIZEM CD) CAP PO NR (14:30)
--- NOTE | 2022-03-21 14:48 | Consultation-Cardiology ---
HPI-Cardiology Cardiology Consultation: Date of Consultation 03/21/22 Time Seen by a Provider: 14:10 Date of Admission Attending Physician Ling Spears DO Admitting Physician Admitting Physician: Ling Spears DO Attending Physician: Ling Spears DO Consulting Physician SARAH AMARAL MD, MA, FACP, FACC, FSCAI, CCDS HPI: Chief Complaint: Hypotension Suspected GIB Ms. Noble is an 86 yr old female admitted to ICU 8 from the ED. She reports over the course of the last several weeks she has had increasing weakness, fatigue, dizziness, SOB and low blood pressure. She reports at home her BP has been in the 90's to upper 80's systolic range. She reports she has had increasing SOB just ambulating from room to room at home. She reports this morning she got up and walked from the bedroom to the kitchen with assist from her . She states once she made it to the chair she was very weak and fatigued. She denies any syncope. She reports her spouse then brought her to the ED. No c/o fever, n/v/d. No c/o LE swelling. She reports she has been taking her medications. She states she is feeling better that she was. No report of bloody or tarry bowel movements. Review of Systems-Cardiology Review of Systems Constitutional: No chills, No fever; lightheadedness, malaise, tiredness Eyes: No vision change Ears/Nose/Throat: No epistaxis, No recent hearing loss Respiratory: As described under HPI Cardiovascular: As described under HPI Gastrointestinal: No abdominal pain, No constipation, No diarrhea, No nausea, No vomiting, No stool coloration changes Genitourinary: No dysuria, No hematuria Musculoskeletal: As describe under HPI Skin: No rash on exposed areas, No ulcerations on exposed areas Psychiatric/Neurological: No anxiety, No depression, No seizure, No focal weakness, No syncope Hematologic: No bleeding abnormalities All Other Systems Reviewed Negative Unless Noted: Yes (Negative excepted noted.) IBI-Xlckee-Obonjn Hx Patient Social History Marrital Status: Smoking Status: Never a Smoker Have you traveled recently?: No Alcohol Use?: No Immunizations Up To Date Tetanus Booster (TDap): Unknown Date of Pneumonia Vaccine: Jan 11, 2016 Date of Influenza Vaccine: Mar 21, 2021 Past Medical History PMH As described under Assessment. Family Medical History Family Medical History: Family h/o mother, father, brother and sister having CAD. Father had a CVA. Allergies and Home Medications Allergies Coded Allergies: No Known Drug Allergies (Verified , 09/09/07) Patient Home Medication List Home Medication List Reviewed: Yes Allopurinol (Allopurinol) 100 Mg Tablet, 100 MG PO DAILY, (Reported) Entered as Reported by: ELANA JOSHI on 11/06/17827 Amlodipine Besylate (Amlodipine Besylate) 5 Mg Tablet, 5 MG PO DAILY, (Reported) Entered as Reported by: FEMI PRINCE on 09/16/20 100 Apixaban (Eliquis) 5 Mg Tablet, 5 MG PO BID, (Reported) Entered as Reported by: FEMI PRINCE on 09/16/201002 Baclofen (Baclofen) 10 Mg Tablet, 10 MG PO TID PRN for MUSCLE CRAMPS Prescribed by: LING SPEARS on 09/17/20 1145 Calcium Carbonate (Calcium) 500 Mg Tablet, 500 MG PO DAILY, (Reported) Entered as Reported by: FEMI PRINCE on 09/16/20 100 Cholecalciferol (Vitamin D3) (Vitamin D3) 25 Mcg Capsule, 25 MCG PO DAILY, (Reported) Entered as Reported by: FEMI PRINCE on 09/16/201002 Diltiazem HCl (Diltiazem ER) 120 Mg Capsule.er, 120 MG PO DAILY, (Reported) Entered as Reported by: FEMI PRINCE on 09/16/201002 Furosemide (Furosemide) 20 Mg Tablet, 20 MG PO DAILY, (Reported) Entered as Reported by: ELANA JOSHI on 11/06/17827 Levothyroxine Sodium (Levothyroxine Sodium) 75 Mcg Tablet, 75 MCG PO DAILY, (Reported) Entered as Reported by: FEMI PRINCE on 09/16/20 100 Multivit-Min/FA/Lycopene/Lut (Centrum Silver Tablet) 1 Each Tablet, 1 EACH PO DAILY, (Reported) Entered as Reported by: FEMI PRINCE on 09/16/201002 Potassium Chloride (Potassium Chloride) 10 Meq Capsule.er, 10 MEQ PO DAILY, (Reported) Entered as Reported by: ELANA JOSHI on 11/06/17827 Ubidecarenone (Coq-10) 100 Mg Capsule, 100 MG PO DAILY, (Reported) Entered as Reported by: FEMI PRINCE on 09/16/20 1003 Physical Exam-Cardiology Physical Exam Vital Signs/I&O 03/21/22 03/21/22 03/21/22 03/21/22 09:25 09:52 11:45 12:09 Temp 36.4 Pulse 102 73 90 82 90 Resp 16 16 B/P (MAP) 121/82 (95) 115/76 (89) 123/70 112/61 (78) Pulse Ox 96 97 O2 Delivery Room Air Room Air 03/21/22 03/21/22 03/21/22 03/21/22 12:14 12:28 13:00 14:00 Temp 36.4 36.4 Pulse 82 82 88 80 Resp 16 38 20 B/P (MAP) 141/96 (111) 149/120 (130) 145/72 (96) Pulse Ox 99 99 95 95 O2 Delivery Room Air Room Air Room Air FiO2 21 03/21/22 03/21/22 14:26 14:43 Temp 36.7 36.6 Pulse 83 Resp 12 B/P (MAP) 154/87 Pulse Ox 98 O2 Delivery Room Air Capillary Refill : Less Than 3 Seconds Constitutional: AAO x 3, well-developed, well-nourished HEENT: PERRL, hearing is well preserved, oral hygience is good Neck: No carotid bruit; carotid pulses are 2 + bilaterally Respiratory: No accessory muscle use, No respiratory distress; chest expansion is symmetric, chest is bilaterally symmetric, lungs clear to auscultation Cardiovascular: irregularly irregular; No JVD; S1 and S2 Gastrointestinal: No tender; soft, round; No distended, No guarding; audible bowel sounds Rectal: deferred Extremities: no lower extremity edema bilateral Neurologic/Psychiatric: grossly intact (moves all extremities) Skin: No rash on exposed areas, No ulcerations on exposed areas Lymphatic: no adenopathy Data Review Labs Laboratory Tests 03/21/22 09:38: Glucometer 113H 03/21/22 09:56: White Blood Count 7.6, Red Blood Count 3.20L, Hemoglobin 7.7L, Hematocrit 26L, Mean Corpuscular Volume 80, Mean Corpuscular Hemoglobin 24L, Mean Corpuscular Hemoglobin Concent 30L, Red Cell Distribution Width 17.9H, Platelet Count 384, Mean Platelet Volume 9.8, Immature Granulocyte % (Auto) 1, Neutrophils (%) (Auto) 54, Lymphocytes (%) (Auto) 33, Monocytes (%) (Auto) 10, Eosinophils (%) (Auto) 2, Basophils (%) (Auto) 1, Neutrophils # (Auto) 4.1, Lymphocytes # (Auto) 2.5, Monocytes # (Auto) 0.8, Eosinophils # (Auto) 0.2, Basophils # (Auto) 0.0, Immature Granulocyte # (Auto) 0.0, Prothrombin Time 15.4H, INR Comment 1.2, Activated Partial Thromboplast Time 30, Sodium Level 138, Potassium Level 4.2, Chloride Level 105, Carbon Dioxide Level 23, Anion Gap 10, Blood Urea Nitrogen 2 3H, Creatinine 1.09, Estimat Glomerular Filtration Rate 49, BUN/Creatinine Ratio 21, Glucose Level 112H, Lactic Acid Level 1.62, Calcium Level 9.5, Corrected Calcium 9.7, Magnesium Level 2.2, Total Bilirubin 0.4, Aspartate Amino Transf (AST/SGOT) 57H, Alanine Aminotransferase (ALT/SGPT) 39, Alkaline Phosphatase 84, Troponin I < 0.028, B-Type Natriuretic Peptide 88.7, Total Protein 7.3, Albumin 3.7 03/21/22 10:04: Urine Color YELLOW, Urine Clarity CLEAR, Urine pH 6.0, Urine Specific [place] >=1.030, Urine Protein TRACEH, Urine Glucose (UA) NEGATIVE, Urine Ketones NEGATIVE, Urine Nitrite NEGATIVE, Urine Bilirubin 1+H, Urine Urobilinogen 0.2, Urine Leukocyte Esterase NEGATIVE, Urine RBC (Auto) NEGATIVE, Urine RBC NONE, Urine WBC NONE, Urine Squamous Epithelial Cells NONE, Urine Crystals NONE, Urine Bacteria NEGATIVE, Urine Casts NONE, Urine Mucus MODERATEH, Urine Culture Indica rasta NO 03/21/22 12:25: Influenza Type A (RT-PCR) Not Detected, Influenza Type B (RT-PCR) Not Detected, SARS-CoV-2 RNA (RT-PCR) Not Detected A/P-Cardiology Assessment/Admission Diagnosis Hypotension - likely d/t vol depletion d/t anemia Anemia - suspected GIB - management per medical/surgical services H/O Syncope on 12/17/17 - probably vasovagal in a hot shower. -ILR implanted 12/25/17. 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 Hunt showed mild CAD. Normal LVEDP - Echocardiogram of October 25, 2017 showed concentric LVH. LVEF 60-65%. LA mod to severely dilated. Mild to mod regurg. Trivial aortic regurg. Mod TR. PASP 25-30 mmHg PA Fib - of unknown age, first diagnosed on a preop ECG at the [facility] on 10/03/17. NSR on ECG of 01/03/18 - OAC with Eliquis - currently being held Bilateral lower limb discomfort - nonvascular (segmental pressures of Apr 2019 were normal) Chronic back pain - managed by PCP Exertional shortness of breath - chronic, unchanged Chronic joint pain - manged by PCP Obesity - with BMI approx 38 Hypothyroidism - treated with thyroid replacement Hyperlipidemia - but intolerance to statins (h/o liver enz elevation) Chronic bilat leg swelling - likely related to venous insuff Discussion and Recomendations Hypotension likely d/t volume depletion d/t anemia - improved at this time Anemia - undetermined etiology; suspected GIB - management per medical/surgical services - Advise Hgb be kept 8.0 or greater PAF - currently a-fib with controlled rate - OAC with Eliquis - ok to hold Eliquis for now d/t suspected GIB - we advise source of bleeding be determined and treated expeditiously so that OAC can be resumed d/t risk of stroke d/t a-fib - Resume Cardizem CD - home dose Progressive dyspnea - likely d/t anemia - advise echocardiogram to eval structure and function Monitor lab closely Replace electrolytes as indicated Further recs will be based on her hospital course We would like to thank medical services for this consult Clinical Quality Measures DVT/VTE Risk/Contraindication: Contraindications-Pharm: Other *list below* Other: SARAH MENDEZ MD FACP FAC CCDS Mar 21, 2022 14:48
[2022-03-21 14:54] VITALS: BP 137/99
[2022-03-21] MEDS ORDERED: VIT1CAPS5 PO (15:52)
[2022-03-21] MEDS ORDERED: BENA40TA84 PO (15:52)
[2022-03-21] MEDS ORDERED: DILT-27 PO (15:52)
--- NOTE | 2022-03-21 16:27 | Tele-ICU Consult ---
History of Present Illness History of Present Illness Date Seen by Provider: Mar 21, 2022 Time Seen by Provider: 16:27 Date of Admission (Tele-ICU Physician , consultation as per request of PCP Service provided via interactive audio and video telecommunications E-CARE system to a patient admitted to ICU bed in [facility]. Available chart/ vitals / labs / Images reviewed H&P is from ER notes Patient's information available about PMH, Shx, Fhx allergy reviewed inEMR. ROS as per chart and RN report Now in ICU, hemodynamically stable Video assessment done using teleICU camera, rest of exam as per RN Discussed with RN. Consultants: carmine naylor Hospital course: (03/21) 86F Admitted with symptomatic Anemia, poss GI bleed. A/P Hypotension - anemia , volume depletion - 1 u PRBC , vitals stable now , no AC reversal now Anemia., acute - suspected GIB - Hb 7.7 ( hb 13 in august ) - 1 u PRBC ordered - follow - as per cards , Hb > 8 desired Suspected GIB - PPI IV qd - monitor hb , hold AC -- sx consulted : possible EGD tomorrow, colonoscopy outpatient vs inpatien CAD, - LVEF 60% - LA mod to severely dilated. Mild to mod regurg. Trivial aortic regurg. Mod TR. PASP 25-30 mmHg - s/p -ILR implanted 12/25/17. - cards consulted PA Fib - rate controlled - OAC with Eliquis [employer] - ON HOLD Dyspnea , chronic , on RA now Chronic back pain Hypothyroidism Chronic bilat leg swelling - likely related to venous insuff Obesity - with BMI approx 38 Lines : , (Central Line Necessity Reviewed) Rebollar: OG: Nutrition: Analgesia: Anxiety/ delirium VTE Prophylaxis: eliquis [employer] , scd Stress Ulcer Prophylaxis: ppi Glycemic Control: Plans in collaboration with bedside consultants and IM MDs. Discussed with RN to reach out if any questions or concerns A total of33 minutes of critical care time was devoted to this patient today, required to treat and/or prevent further deterioration of critical care condition ( as above ) . I am remotely monitoring this patient from another state. I am unable to do the bedside exam, and history/physical and pertinent information is taken from other notes in the computer and bedside staff. . Allergies and Home Medications Allergies Coded Allergies: No Known Drug Allergies (Verified , 09/09/07) Home Medications Allopurinol 100 Mg Tablet, 100 MG PO DAILY, (Reported) Amlodipine Besylate 5 Mg Tablet, 5 MG PO DAILY, (Reported) Apixaban 5 Mg Tablet, 5 MG PO BID, (Reported) Benazepril HCl 40 Mg Tab, 40 MG PO DAILY, (Reported) Cholecalciferol (Vitamin D3) 25 Mcg Capsule, 25 MCG PO DAILY, (Reported) Diltiazem HCl 120 Mg Cap.er.24h, 120 MG PO DAILY, (Reported) Furosemide 20 Mg Tablet, 20 MG PO DAILY, (Reported) Levothyroxine Sodium 75 Mcg Tablet, 75 MCG PO DAILY, (Reported) Potassium Chloride 10 Meq Capsule.er, 10 MEQ PO DAILY, (Reported) Ubidecarenone 100 Mg Capsule, 100 MG PO DAILY, (Reported) Vit A/C/E/Zinc/Co 14,320-226 Capsule, 1 CAP PO DAILY, (Reported) Past Medical/Social/Family Hx Patient Social History Marrital Status: Tobacco Use?: No Smoking Status: Never a Smoker Substance use?: No Alcohol Use?: No Immunizations Up To Date Influenza Vaccine Up-to-Date: Yes; Up-to-Date Tetanus Booster (TDap): Unknown Date of Pneumonia Vaccine: Jan 11, 2016 Current Status status: No status: No Advance Directives: No Communicates: Verbally Primary Language: Cambodian Preferred Spoken Language: Cambodian Is interpretation needed?: No Implanted or Applied Medical D: Other Review of Systems Constitutional: see HPI Focused Exam Lactate Level 03/21/22 09:56: Lactic Acid Level 1.62 Height, Weight, BMI Height: 5'4.00" Weight: 235lbs. 2.0oz. 106.551251yo; 37.50 BMI Method:Stated Exam Exam Patient acknowledged, consented, and participated in this virtual visit which was conducted using real time audio/video Vital Signs Date Time Temp Pulse Resp B/P (MAP) Pulse Ox O2 Delivery O2 Flow Rate FiO2 03/21/22 15:00 90 20 135/78 (97) 92 Room Air 03/21/22 14:54 36.7 84 18 137/99 98 Room Air 03/21/22 14:43 36.6 03/21/22 14:26 36.7 83 12 154/87 98 Room Air 03/21/22 14:00 80 20 145/72 (96) 95 Room Air 03/21/22 13:00 88 38 149/120 (130) 95 Room Air 03/21/22 12:28 36.4 82 99 21 03/21/22 12:14 36.4 82 16 141/96 (111) 99 Room Air 03/21/22 12:09 82 03/21/22 11:45 90 16 123/70 97 Room Air 03/21/22 09:52 73 115/76 (89) 90 112/61 (78) 03/21/22 09:25 36.4 102 16 121/82 (95) 96 Room Air Height & Weight Height: 5'4.00" Weight: 235lbs. 2.0oz. 106.102237ed; 37.50 BMI Method:Stated General Appearance: No Apparent Distress, WD/WN, Obese HEENT: PERRL/EOMI Neck: Non Tender, Supple Respiratory: Lungs Clear, Normal Breath Sounds, No Accessory Muscle Use Cardiovascular: No Edema, Normal Peripheral Pulses Capillary Refill: Less Than 3 Seconds Peripheral Pulses: 2+ Radial Pulses (R), 2+ Radial Pulses (L) Gastrointestinal: non tender, soft Extremity: Normal Capillary Refill, Non Tender Neurologic/Psychiatric: Alert, Oriented x3 Skin: Warm/Dry, Pallor Lymphatic: No Adenopathy Results Lab Laboratory Tests 03/21/22 09:56 Assessment/Plan Assessment/Plan 1 JOVANY PARR MD Mar 21, 2022 16:27
[2022-03-21 17:35] VITALS: BP 137/79
[2022-03-21] MEDS: SENNOSIDES 8.6 MG (SENOKOT) TAB PO SCH (21:30)
[2022-03-21] MEDS: DOCUSATE SODIUM 100 MG (COLACE) CAP PO SCH (21:30)
[2022-03-21 23:42] LABS: HEMOGLOBIN 8.2 g/dL (11.5-16.0)
[2022-03-21] MEDS: ACETAMINOPHEN 325 MG TABLET PO PRN (23:50)
[2022-03-22] MEDS: NS IV 1000 ML 1,000 ML IV SCH (02:19)
[2022-03-22 05:32] LABS: BASOPHILS % (AUTO) 1 % (0-10); EOSINOPHILS # (AUTO) 0.2 10^3/uL (0.0-0.3); EOSINOPHILS % (AUTO) 2 % (0-10); HEMATOCRIT 26 % (35-52); HEMOGLOBIN 7.8 g/dL (11.5-16.0); LYMPHOCYTES # (AUTO) 2.6 10^3/uL (1.0-4.0); LYMPHOCYTES % (AUTO) 34 % (12-44); MEAN CORPUSCULAR HEMOGLOBIN 24 pg (25-34); MEAN CORPUSCULAR HGB CONC 30 g/dL (32-36); MEAN CORPUSCULAR VOLUME 79 fL (80-99); MEAN PLATELET VOLUME 9.8 fL (9.0-12.2); MONOCYTES # (AUTO) 0.9 10^3/uL (0.0-1.0); MONOCYTES % (AUTO) 12 % (0-12); NEUTROPHILS # (AUTO) 3.9 10^3/uL (1.8-7.8); NEUTROPHILS % (AUTO) 52 % (42-75); PLATELET COUNT 324 10^3/uL (130-400); WHITE BLOOD COUNT 7.6 10^3/uL (4.3-11.0)
[2022-03-22 05:50] LABS: ALBUMIN 3.2 GM/DL (3.2-4.5); BILIRUBIN,TOTAL 0.4 MG/DL (0.1-1.0); CALCIUM 8.6 MG/DL (8.5-10.1); CREATININE SERUM 0.93 MG/DL (0.60-1.30); MAGNESIUM 2.1 MG/DL (1.6-2.4); PHOSPHORUS 3.9 MG/DL (2.3-4.7); POTASSIUM 4.1 MMOL/L (3.6-5.0); TOTAL PROTEIN 6.2 GM/DL (6.4-8.2)
[2022-03-22] MEDS ORDERED: KCL 20 MEQ TAB (K-DUR) PO SCH (06:00)
[2022-03-22] MEDS ORDERED: POTASSIUM CL 10MEQ/50ML IVPB 50 ML IV SCH (06:00)
[2022-03-22] MEDS ORDERED: MAGNESIUM 1 GM/100 ML IVPB 100 ML IV SCH (06:00)
[2022-03-22] MEDS: NOREPINEPHRINE 8 MG/250 ML 250 ML IV SCH (06:01)
--- NOTE | 2022-03-22 06:48 | Progress Note - Surgery ---
[facility] 03/22/22 0648: Subjective Date Seen by a Provider: Mar 22, 2022 Time Seen by a Provider: 06:43 Subjective/Events-last exam Today pt reports she is feeling much better than yesterday. Denies BM but is urinating without issue. She had a MASON overnight rated at a 4/10 and was given Tylenol which resolved the pain. Denies SOB, CP, abdominal pain, n/v, sweats/chills. Hgb 7.8 this morning. Review of Systems General: No Chills, No Night Sweats HEENT: Head Aches; No Visual Changes Pulmonary: No Dyspnea, No Cough Cardiovascular: No: Chest Pain, Palpitations Gastrointestinal: No: Nausea, Vomiting Genitourinary: No Dysuria, No Frequency Musculoskeletal: No: neck pain, shoulder pain Neurological: No: Weakness, Numbness Focused Exam Lactate Level 03/21/22 09:56: Lactic Acid Level 1.62 Objective Exam Vital Signs Date Time Temp Pulse Resp B/P (MAP) Pulse Ox O2 Delivery O2 Flow Rate FiO2 03/22/22 06:01 81 117/77 03/22/22 06:00 77 18 135/87 (103) 98 Room Air 03/22/22 05:00 81 18 117/77 (90) 95 Room Air 03/22/22 04:00 64 14 122/65 (84) 95 Room Air 03/22/22 03:55 97 Room Air 03/22/22 03:46 36.3 03/22/22 03:00 65 13 107/59 (75) 96 Room Air 03/22/22 02:00 68 14 106/60 (75) 94 Room Air 03/22/22 01:00 64 03/22/22 01:00 64 13 132/86 (101) 96 Room Air 03/22/22 00:44 98 Room Air 03/22/22 00:35 36.4 03/22/22 00:00 84 12 152/86 (108) 95 Room Air 03/21/22 23:00 66 14 107/52 (70) 94 Room Air 03/21/22 23:00 Room Air 03/21/22 22:00 71 15 129/81 (97) 93 Room Air 03/21/22 21:03 67 15 122/73 (89) 93 Room Air 03/21/22 20:11 97 Room Air 03/21/22 20:00 72 23 153/104 (120) 95 Room Air 03/21/22 20:00 36.2 03/21/22 19:00 74 23 139/92 (108) 96 Room Air 03/21/22 19:00 Room Air 03/21/22 19:00 74 03/21/22 18:00 93 25 138/80 (99) 98 Room Air 03/21/22 17:51 96 Room Air 03/21/22 17:35 36.7 88 20 137/79 96 Room Air 03/21/22 17:00 89 25 167/95 (119) 96 Room Air 03/21/22 16:05 99 Room Air 03/21/22 16:00 66 46 131/87 (102) 94 Room Air 03/21/22 16:00 36.0 03/21/22 15:00 90 20 135/78 (97) 92 Room Air 03/21/22 14:54 36.7 84 18 137/99 98 Room Air 03/21/22 14:43 36.6 03/21/22 14:26 36.7 83 12 154/87 98 Room Air 03/21/22 14:00 80 20 145/72 (96) 95 Room Air 03/21/22 13:00 88 38 149/120 (130) 95 Room Air 03/21/22 12:28 36.4 82 99 21 03/21/22 12:14 36.4 82 16 141/96 (111) 99 Room Air 03/21/22 12:14 99 Room Air 03/21/22 12:09 82 03/21/22 11:45 90 16 123/70 97 Room Air 03/21/22 09:52 73 115/76 (89) 90 112/61 (78) 03/21/22 09:25 36.4 102 16 121/82 (95) 96 Room Air I & O 03/22/22 07:00 Intake Total 3035 ml Output Total 1550 ml Balance 1485 ml Capillary Refill : Less Than 3 Seconds General Appearance: No Apparent Distress, WD/WN, Obese HEENT: PERRL/EOMI, Normal ENT Inspection Neck: Full Range of Motion, Normal Inspection, Supple Respiratory: Chest Non Tender, No Accessory Muscle Use, No Respiratory Distress Cardiovascular: No Edema, No JVD, Normal Peripheral Pulses Peripheral Pulses: 2+ Radial Pulses (R), 2+ Radial Pulses (L) Gastrointestinal: non tender, soft Extremity: Normal Capillary Refill, Normal Inspection, Normal Range of Motion, Non Tender, No Calf Tenderness, No Pedal Edema Neurologic/Psychiatric: Alert, Oriented x3, No Motor/Sensory Deficits, Normal Mood/Affect Skin: Warm/Dry, Pallor Lymphatic: No Adenopathy Results Lab Laboratory Tests 03/21/22 09:38: Glucometer 113H 03/21/22 09:54: 03/21/22 09:56: White Blood Count 7.6, Red Blood Count 3.20L, Hemoglobin 7.7L, Hematocrit 26L, Mean Corpuscular Volume 80, Mean Corpuscular Hemoglobin 24L, Mean Corpuscular Hemoglobin Concent 30L, Red Cell Distribution Width 17.9H, Platelet Count 384, Mean Platelet Volume 9.8, Immature Granulocyte % (Auto) 1, Neutrophils (%) (Auto) 54, Lymphocytes (%) (Auto) 33, Monocytes (%) (Auto) 10, Eosinophils (%) (Auto) 2, Basophils (%) (Auto) 1, Neutrophils # (Auto) 4.1, Lymphocytes # (Auto) 2.5, Monocytes # (Auto) 0.8, Eosinophils # (Auto) 0.2, Basophils # (Auto) 0.0, Immature Granulocyte # (Auto) 0.0, Prothrombin Time 15.4H, INR Comment 1.2, Activated Partial Thromboplast Time 30, Sodium Level 138, Potassium Level 4.2, Chloride Level 105, Carbon Dioxide Level 23, Anion Gap 10, Blood Urea Nitrogen 23H, Creatinine 1.09, Estimat Glomerular Filtration Rate 49, BUN/Creatinine Ratio 21, Glucose Level 112H, Lactic Acid Level 1.62, Calcium Level 9.5, Corrected Calcium 9.7, Magnesium Level 2.2, Total Bilirubin 0.4, Aspartate Amino Transf (AST/SGOT) 57H, Alanine Aminotransferase (ALT/SGPT) 39, Alkaline Phosphatase 84, Troponin I < 0.028, B-Type Natriuretic Peptide 88.7, Total Protein 7.3, Albumin 3.7 03/21/22 10:04: Urine Color YELLOW, Urine Clarity CLEAR, Urine pH 6.0, Urine Specific [place] >=1.030, Urine Protein TRACEH, Urine Glucose (UA) NEGATIVE, Urine Ketones NEGATIVE, Urine Nitrite NEGATIVE, Urine Bilirubin 1+H, Urine Urobilinogen 0.2, Urine Leukocyte Esterase NEGATIVE, Urine RBC (Auto) NEGATIVE, Urine RBC NONE, Urine WBC NONE, Urine Squamous Epithelial Cells NONE, Urine Crystals NONE, Urine Bacteria NEGATIVE, Urine Casts NONE, Urine Mucus MODERATEH, Urine Culture Gladis cated NO 03/21/22 12:25: Influenza Type A (RT-PCR) Not Detected, Influenza Type B (RT-PCR) Not Detected, SARS-CoV-2 RNA (RT-PCR) Not Detected 03/21/22 20:26: Hemoglobin 8.0L, Hematocrit 26L 03/21/22 23:35: Hemoglobin 8.2L, Hematocrit 27L 03/22/22 05:10: Hemoglobin 7.8L, Hematocrit 26L, White Blood Count 7.6, Red Blood Count 3.27L, Mean Corpuscular Volume 79L, Mean Corpuscular Hemoglobin 24L, Mean Corpuscular Hemoglobin Concent 30L, Red Cell Distribution Width 18.3H, Platelet Count 324, Mean Platelet Volume 9.8, Immature Granulocyte % (Auto) 1, Neutrophils (%) (Auto) 52, Lymphocytes (%) (Auto) 34, Monocytes (%) (Auto) 12, Eosinophils (%) (Auto) 2, Basophils (%) (Auto) 1, Neutrophils # (Auto) 3.9, Lymphocytes # (Auto) 2.6, Monocytes # (Auto) 0.9, Eosinophils # (Auto) 0.2, Basophils # (Auto) 0.0, Immature Granulocyte # (Auto) 0.0, Sodium Level 141, Potassium Level 4.1, Chloride Level 109H, Carbon Dioxide Level 20L, Anion Gap 12, Blood Urea Nitrogen 18, Creatinine 0.93, Estimat Glomerular Filtration Rate 60, BUN/Creatinine Ratio 19, Glucose Level 90, Calcium Level 8.6, Corrected Calcium 9.2, Phosphorus Level 3.9, Magnesium Level 2.1, Total Bilirubin 0.4, Aspartate Amino Transf (AST/SGOT) 54H, Alanine Aminotransferase (ALT/SGPT) 33, Alkaline Phosphatase 80, Total Protein 6.2L, Albumin 3.2 Assessment/Plan Assessment/Plan Assessment/Plan anemia ?GI bleed hx distant colonoscopy with possible polyp long-term current anticoagulant use hypotension- improved track and trend hgb, transfuse as needed - current hgb 7.8 and has received 1 unit PRBC continue supportive care NPO continue protonix possible EGD today consider colonoscopy outpatient vs inpatient, she is on eliquis-last dose 03/20, continue to hold Clinical Quality Measures DVT/VTE Risk/Contraindication: Contraindications-Pharm: Other *list below* Other: ARABELLA HOLLINGSWORTH DO 03/22/22 0839: Subjective Subjective/Events-last exam Patient doing okay this morning. NPO. Hgb 7.8. Transfused yesterday 1 unit prbc. No new compalints. Denies abdominal pain or blood per rectum. Denies n/v fever sweats chills shortness of breath or chest pain. Objective Exam General Appearance: No Apparent Distress, WD/WN HEENT: PERRL/EOMI, Normal ENT Inspection Neck: Full Range of Motion, Normal Inspection, Supple Respiratory: Chest Non Tender, No Accessory Muscle Use, No Respiratory Distress Cardiovascular: Regular Rate, Rhythm, No JVD Gastrointestinal: non tender, soft Extremity: Normal Inspection, Non Tender Neurologic/Psychiatric: Alert, Oriented x3 Skin: Warm/Dry, Pallor Lymphatic: No Adenopathy Assessment/Plan Assessment/Plan Assessment/Plan anemia ?GI bleed hx distant colonoscopy with possible polyp long-term current anticoagulant use hypotension- improved track and trend hgb, transfuse as needed - current hgb 7.8 and has received 1 unit PRBC continue supportive care NPO continue protonix EGD today consider colonoscopy outpatient vs inpatient, she is on eliquis-last dose 03/20, continue to hold Supervisory-Addendum Brief Verification & Attestation Participated in pt care: history, MDM, physical Personally performed: exam, history, MDM, supervision of care Care discussed with: Medical Student Procedures: n/a Results interpretation: Verified all documentation Verification and Attestation of Medical Student E/M Service A medical student performed and documented this service in my presence. I reviewed and verified all information documented by the medical student and made modifications to such information, when appropriate. I personally performed the physical exam and medical decision making. Arabella Nickerson, Mar 22, 2022,08:39 WILMA GALICIA Mar 22, 2022 06:48 ARABELLA NICKERSON DO Mar 22, 2022 08:39
[2022-03-22] MEDS: SENNOSIDES 8.6 MG (SENOKOT) TAB PO SCH ×2 (08:37→21:24)
[2022-03-22] MEDS: DOCUSATE SODIUM 100 MG (COLACE) CAP PO SCH ×2 (08:37→21:24)
[2022-03-22] MEDS ORDERED: LACTATED RINGERS 1,000 ML IV STA (08:38)
[2022-03-22] MEDS ORDERED: HURRICAINE EXT TUBE (BENZOCAINE) XX PRN (08:45)
[2022-03-22] MEDS ORDERED: PANTOPRAZOLE 40 MG (PROTONIX) VIAL IV SCH (09:00)
[2022-03-22] MEDS ORDERED: dilTIAZem120 MG (CARDIZEM CD) CAP PO SCH (09:00)
[2022-03-22] MEDS ORDERED: proPOfol 200 MG/20 ML (DIPRIVAN) VIAL IV ONE (09:19)
[2022-03-22 09:30] VITALS: BP 144/77
[2022-03-22 09:35] VITALS: BP 138/64
[2022-03-22] MEDS ORDERED: LACTATED RINGERS 1,000 ML IV ONE (09:43)
--- NOTE | 2022-03-22 09:46 | Anesthesia-General Post-Op ---
MAC Patient Condition Mental Status/LOC: Same as Preop Cardiovascular: Satisfactory Nausea/Vomiting: Absent Respiratory: Satisfactory Pain: Controlled Complications: Absent Post Op Complications Complications None Follow Up Care/Instructions Patient Instructions None needed. Anesthesiology Discharge Order Discharge Order Patient is doing well, no complaints, stable vital signs, no apparent adverse anesthesia problems. No complications reported per nursing. LALITA KIMBROUGH DO Mar 22, 2022 09:46
--- NOTE | 2022-03-22 10:46 | Tele-ICU Progress Note ---
Subjective Date Seen by a Provider: Mar 22, 2022 Time Seen by a Provider: 10:45 Subjective/Events-last exam (Tele-ICU Physician , Progress Note ) Service provided via interactive audio and video telecommunications E-CARE system to a patient admitted to ICU bed in [facility]. Available chart/ vitals / labs / Images reviewed Video assessment done using teleICU camera, rest of exam as per RN Discussed with RN Events overnight : Afebrile hemodynamically stable Respiratory - ra I/O = pos 1200 Drips: ns Pressors- no Consultants: carmine naylor Hospital course: (03/21) 86F Admitted with symptomatic Anemia, poss GI bleed. A/P Hypotension - anemia , volume depletion - 1 u PRBC , vitals stable now , no AC reversal now Anemia., acute - suspected GIB - Hb 7.7 ( hb 13 in august ) - stable after 1 u PRBC - as per cards , Hb > 8 desired Suspected GIB - PPI IV qd - monitor hb , hold AC -- sx consulted : EGD today , colonoscopy outpatient vs inpatien CAD, - LVEF 60% - LA mod to severely dilated. Mild to mod regurg. Trivial aortic regurg. Mod TR. PASP 25-30 mmHg - s/p -ILR implanted 12/25/17. - cards consulted PA Fib - rate controlled - OAC with Eliquis [employer] - ON HOLD Dyspnea , chronic , on RA now Chronic back pain Hypothyroidism Chronic bilat leg swelling - likely related to venous insuff Obesity - with BMI approx 38 Lines : , (Central Line Necessity Reviewed) Rebollar: OG: Nutrition: Analgesia: Anxiety/ delirium VTE Prophylaxis: eliquis [employer] , scd Stress Ulcer Prophylaxis: ppi Glycemic Control: Plans in collaboration with bedside consultants and IM MDs. Discussed with RN to reach out if any questions or concerns A total of 20 minutes of critical care time was devoted to this patient today, required to treat and/or prevent further deterioration of critical care condition ( as above ) . I am remotely monitoring this patient from another state. I am unable to do the bedside exam, and history/physical and pertinent information is taken from other notes in the computer and bedside staff. . Sepsis Event Evaluation Height, Weight, BMI Height: 5'4.00" Weight: 235lbs. 2.0oz. 106.004407nw; 37.69 BMI Method:Stated Focused Exam Lactate Level 03/21/22 09:56: Lactic Acid Level 1.62 Exam Exam Patient acknowledged, consented, and participated in this virtual visit which was conducted using real time audio/video Vital Signs Date Time Temp Pulse Resp B/P (MAP) Pulse Ox O2 Delivery O2 Flow Rate FiO2 03/22/22 10:00 87 16 126/73 (90) 96 Room Air 03/22/22 09:35 77 16 98 Room Air 03/22/22 09:30 88 99 Room Air 03/22/22 09:00 93 16 121/71 (88) 96 Room Air 03/22/22 08:00 36.6 03/22/22 08:00 70 14 129/71 (90) 95 Room Air 03/22/22 08:00 97 Room Air 03/22/22 07:00 59 03/22/22 07:00 73 14 115/76 (89) 97 Room Air 03/22/22 06:01 81 117/77 03/22/22 06:00 77 18 135/87 (103) 98 Room Air 03/22/22 05:00 81 18 117/77 (90) 95 Room Air 03/22/22 04:00 64 14 122/65 (84) 95 Room Air 03/22/22 03:55 97 Room Air 03/22/22 03:46 36.3 03/22/22 03:00 65 13 107/59 (75) 96 Room Air 03/22/22 02:00 68 14 106/60 (75) 94 Room Air 03/22/22 01:00 64 03/22/22 01:00 64 13 132/86 (101) 96 Room Air 03/22/22 00:44 98 Room Air 03/22/22 00:35 36.4 03/22/22 00:00 84 12 152/86 (108) 95 Room Air 03/21/22 23:00 66 14 107/52 (70) 94 Room Air 03/21/22 23:00 Room Air 03/21/22 22:00 71 15 129/81 (97) 93 Room Air 03/21/22 21:03 67 15 122/73 (89) 93 Room Air 03/21/22 20:11 97 Room Air 03/21/22 20:00 72 23 153/104 (120) 95 Room Air 03/21/22 20:00 36.2 03/21/22 19:00 74 23 139/92 (108) 96 Room Air 03/21/22 19:00 Room Air 03/21/22 19:00 74 03/21/22 18:00 93 25 138/80 (99) 98 Room Air 03/21/22 17:51 96 Room Air 03/21/22 17:35 36.7 88 20 137/79 96 Room Air 03/21/22 17:00 89 25 167/95 (119) 96 Room Air 03/21/22 16:05 99 Room Air 03/21/22 16:00 66 46 131/87 (102) 94 Room Air 03/21/22 16:00 36.0 03/21/22 15:00 90 20 135/78 (97) 92 Room Air 03/21/22 14:54 36.7 84 18 137/99 98 Room Air 03/21/22 14:43 36.6 03/21/22 14:26 36.7 83 12 154/87 98 Room Air 03/21/22 14:00 80 20 145/72 (96) 95 Room Air 03/21/22 13:00 88 38 149/120 (130) 95 Room Air 03/21/22 12:28 36.4 82 99 21 03/21/22 12:14 36.4 82 16 141/96 (111) 99 Room Air 03/21/22 12:14 99 Room Air 03/21/22 12:09 82 03/21/22 11:45 90 16 123/70 97 Room Air I & O 03/22/22 07:00 Intake Total 3035 ml Output Total 1550 ml Balance 1485 ml Height & Weight Height: 5'4.00" Weight: 235lbs. 2.0oz. 106.617586nd; 37.69 BMI Method:Stated General Appearance: No Apparent Distress, WD/WN HEENT: PERRL/EOMI, Normal ENT Inspection Neck: Full Range of Motion, Normal Inspection, Supple Respiratory: Chest Non Tender, No Accessory Muscle Use, No Respiratory Distress Cardiovascular: Regular Rate, Rhythm, No JVD Capillary Refill: Less Than 3 Seconds Peripheral Pulses: 2+ Radial Pulses (R), 2+ Radial Pulses (L) Gastrointestinal: non tender, soft Extremity: Normal Inspection, Non Tender Neurologic/Psychiatric: Alert, Oriented x3 Skin: Warm/Dry, Pallor Lymphatic: No Adenopathy Results Lab Laboratory Tests 03/21/22 09:56 03/21/22 20:26 03/21/22 23:35 03/22/22 05:10 Assessment/Plan Assessment/Plan 1 JOVANY PARR MD Mar 22, 2022 10:46
--- NOTE | 2022-03-22 11:06 | Progress Note - Cardiology ---
Cardiology SOAP Progress Note Subjective: Sitting up in bed post endoscopy States she feels better today, but continues to have fatigue No c/o CP, palpitations, n/v/d Objective: I&O/Vital Signs 03/22/22 03/22/22 03/22/22 03/22/22 00:00 00:35 00:44 01:00 Temp 36.4 Pulse 84 64 Resp 12 13 B/P (MAP) 152/86 (108) 132/86 (101) Pulse Ox 95 98 96 O2 Delivery Room Air Room Air Room Air 03/22/22 03/22/22 03/22/22 03/22/22 01:00 02:00 03:00 03:46 Temp 36.3 Pulse 64 68 65 Resp 14 13 B/P (MAP) 106/60 (75) 107/59 (75) Pulse Ox 94 96 O2 Delivery Room Air Room Air 03/22/22 03/22/22 03/22/22 03/22/22 03:55 04:00 05:00 06:00 Pulse 64 81 77 Resp 14 18 18 B/P (MAP) 122/65 (84) 117/77 (90) 135/87 (103) Pulse Ox 97 95 95 98 O2 Delivery Room Air Room Air Room Air Room Air 03/22/22 03/22/22 03/22/22 03/22/22 06:01 07:00 07:00 08:00 Pulse 81 73 59 Resp 14 B/P (MAP) 117/77 115/76 (89) Pulse Ox 97 97 O2 Delivery Room Air Room Air 03/22/22 03/22/22 03/22/22 03/22/22 08:00 08:00 09:00 09:30 Temp 36.6 Pulse 70 93 88 Resp 14 16 B/P (MAP) 129/71 (90) 121/71 (88) Pulse Ox 95 96 99 O2 Delivery Room Air Room Air Room Air 03/22/22 03/22/22 09:35 10:00 Pulse 77 87 Resp 16 16 B/P (MAP) 126/73 (90) Pulse Ox 98 96 O2 Delivery Room Air Room Air 03/22/22 00:00 Intake Total 2035 ml Output Total 750 ml Balance 1285 ml Weight (Pounds): 235 Weight (Ounces): 2.0 Weight (Calculated Kilograms): [id number] Constitutional: AAO x 3, well-developed, well-nourished Respiratory: No accessory muscle use, No respiratory distress; chest expansion is symmetric, chest is bilaterally symmetric, lungs clear to auscultation Cardiovascular: irregularly irregular; No JVD; S1 and S2 Gastrointestional: No tender; soft, round; No distended, No guarding; audible bowel sounds Extremities: no lower extremity edema bilateral Neurologic/Psychiatric: grossly intact (moves all extremities) Skin: No rash on exposed areas, No ulcerations on exposed areas Results/Procedures: Labs Laboratory Tests 03/21/22 12:25: Influenza Type A (RT-PCR) Not Detected, Influenza Type B (RT-PCR) Not Detected, SARS-CoV-2 RNA (RT-PCR) Not Detected 03/21/22 20:26: Hemoglobin 8.0L, Hematocrit 26L 03/21/22 23:35: Hemoglobin 8.2L, Hematocrit 27L 03/22/22 05:10: Hemoglobin 7.8L, Hematocrit 26L, White Blood Count 7.6, Red Blood Count 3.27L, Mean Corpuscular Volume 79L, Mean Corpuscular Hemoglobin 24L, Mean Corpuscular Hemoglobin Concent 30L, Red Cell Distribution Width 18.3H, Platelet Count 324, Mean Platelet Volume 9.8, Immature Granulocyte % (Auto) 1, Neutrophils (%) (Auto) 52, Lymphocytes (%) (Auto) 34, Monocytes (%) (Auto) 12, Eosinophils (%) (Auto) 2, Basophils (%) (Auto) 1, Neutrophils # (Auto) 3.9, Lymphocytes # (Auto) 2.6, Monocytes # (Auto) 0.9, Eosinophils # (Auto) 0.2, Basophils # (Auto) 0.0, Immature Granulocyte # (Auto) 0.0, Sodium Level 141, Potassium Level 4.1, Chloride Level 109H, Carbon Dioxide Level 20L, Anion Gap 12, Blood Urea Nitrogen 18, Creatinine 0.93, Estimat Glomerular Filtration Rate 60, BUN/Creatinine Ratio 19, Glucose Level 90, Calcium Level 8.6, Corrected Calcium 9.2, Phosphorus Level 3.9, Magnesium Level 2.1, Total Bilirubin 0.4, Aspartate Amino Transf (AST/SGOT) 54H, Alanine Aminotransferase (ALT/SGPT) 33, Alkaline Phosphatase 80, Total P rotein 6.2L, Albumin 3.2 Microbiology 03/21/22 MRSA Screen - Final, Complete MRSA not isolated Laboratory Tests 03/21/22 09:56 03/21/22 20:26 03/21/22 23:35 03/22/22 05:10 A/P: Assessment: Hypotension - likely d/t vol depletion d/t anemia - resolved Anemia - undetermined etiology - management per medical/surgical services - s/p endoscopy today by Dr. Blake - pt reports no bleeding found H/O Syncope on 12/17/17 - probably vasovagal in a hot shower. -ILR implanted 12/25/17. 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 Hunt showed mild CAD. Normal LVEDP - Echocardiogram of October 25, 2017 showed concentric LVH. LVEF 60-65%. LA mod to severely dilated. Mild to mod regurg. Trivial aortic regurg. Mod TR. PASP 25-30 mmHg PA Fib - of unknown age, first diagnosed on a preop ECG at the [facility] on 10/03/17. NSR on ECG of 01/03/18 - OAC with Eliquis - currently being held Bilateral lower limb discomfort - nonvascular (segmental pressures of Apr 2019 were normal) Chronic back pain - managed by PCP Exertional shortness of breath - chronic, unchanged Chronic joint pain - manged by PCP Obesity - with BMI approx 38 Hypothyroidism - treated with thyroid replacement Hyperlipidemia - but intolerance to statins (h/o liver enz elevation) Chronic bilat leg swelling - likely related to venous insuff Plan: Anemia - undetermined etiology; per pt endoscopy by Dr. Blake did not show any active bleeding - awaiting report - Advise Hgb be kept 8.0 or greater PAF - currently a-fib with controlled rate - OAC with Eliquis - s/p endoscopy with no source of bleeding found - advise resumption of OAC for stroke prophylaxis as soon as possible, when ok with surgical/medical services - Continue Lizbet MACE Progressive dyspnea - likely d/t anemia Monitor lab closely ADRYAN PACHECO Mar 22, 2022 11:06
--- NOTE | 2022-03-22 13:41 | Progress Note ---
JOHN BARAJAS 03/22/22 1341: Subjective Date Seen by a Provider: Mar 22, 2022 Time Seen by a Provider: 11:50 Subjective/Events-last exam Patient is awake and alert in her bed this afternoon following her EGD this morning, is at bedside. Patient reports that she is feeling much improved since yesterday. She is still having fatigue, weakness, and lethargy, but these symptoms have lessened significantly. The patient reports that she had a mild headache last night but that this was resolved after taking some tylenol. The patient was kept NPO until after her EGD and has been started on liquids. The patient has not eaten yet but reports that her appetite has started to re turn. The patient reports that she has not had a BM but has been passing flatus. The patient has less pallor compared to yesterday, but is still pale. Her Hg improved to 8.2 yesterday after receiving 1 unit of PRBCs, this morning it is measured at 7.8. Currently awaiting the report from her EGD, but per patient they found no active source of bleeding. Patient has no new complaints. Review of Systems General: No Night Sweats; Fatigue, Appetite (Improved) HEENT: Head Aches (Mild, resolved with tylenol); No Visual Changes, No Eye Pain, No Ear Pain Pulmonary: Dyspnea (improving, on exertion); No Cough, No Pleuritic Chest Pain Cardiovascular: No: Chest Pain, Palpitations, Orthopnea Gastrointestinal: No: Nausea, Vomiting, Abdominal Pain Genitourinary: No Dysuria, No Frequency, No Incontinence Musculoskeletal: No: neck pain, shoulder pain Neurological: Weakness (improving); No: Numbness, Incoordination Focused Exam Lactate Level 03/21/22 09:56: Lactic Acid Level 1.62 Objective Exam Last Set of Vital Signs Vital Signs Date Time Temp Pulse Resp B/P (MAP) Pulse Ox O2 Delivery O2 Flow Rate FiO2 03/22/22 13:00 96 03/22/22 12:00 36.8 03/22/22 12:00 23 144/71 (95) 93 Room Air 03/21/22 12:28 21 Capillary Refill : Less Than 3 Seconds I&O Intake and Output 03/22/22 00:00 Intake Total 2035 ml Output Total 750 ml Balance 1285 ml Intake Oral 475 ml IV Total 1500 ml Other 60 ml Output Urine Total 750 ml Daily Weight Change No General: Alert, Oriented X3, No Acute Distress HEENT: Atraumatic Neck: Supple Lungs: Clear to Auscultation, Normal Air Movement Heart: Regular Rate, No Murmurs Abdomen: Soft, No Tenderness Extremities: No Clubbing, No Cyanosis Skin: No Rashes, No Breakdown Neuro: Normal Speech, Normal Tone Results Lab Laboratory Tests 03/21/22 20:26: Hemoglobin 8.0L, Hematocrit 26L 03/21/22 23:35: Hemoglobin 8.2L, Hematocrit 27L 03/22/22 05:10: Hemoglobin 7.8L, Hematocrit 26L, White Blood Count 7.6, Red Blood Count 3.27L, Mean Corpuscular Volume 79L, Mean Corpuscular Hemoglobin 24L, Mean Corpuscular Hemoglobin Concent 30L, Red Cell Distribution Width 18.3H, Platelet Count 324, Mean Platelet Volume 9.8, Immature Granulocyte % (Auto) 1, Neutrophils (%) (Auto) 52, Lymphocytes (%) (Auto) 34, Monocytes (%) (Auto) 12, Eosinophils (%) (Auto) 2, Basophils (%) (Auto) 1, Neutrophils # (Auto) 3.9, Lymphocytes # (Auto) 2.6, Monocytes # (Auto) 0.9, Eosinophils # (Auto) 0.2, Basophils # (Auto) 0.0, Immature Granulocyte # (Auto) 0.0, Sodium Level 141, Potassium Level 4.1, Chloride Level 109H, Carbon Dioxide Level 20L, Anion Gap 12, Blood Urea Nitrogen 18, Creatinine 0.93, Estimat Glomerular Filtration Rate 60, BUN/Creatinine Ratio 19, Glucose Level 90, Calcium Level 8.6, Corrected Calcium 9.2, Phosphorus Level 3.9, Magnesium Level 2.1, Total Bilirubin 0.4, Aspartate Amino Transf (AST/SGOT) 54H, Alanine Aminotransferase (ALT/SGPT) 33, Alkaline Phosphatase 80, Total Protein 6.2L, Albumin 3.2 Microbiology 03/21/22 MRSA Screen - Final, Complete MRSA not isolated Assessment/Plan Assessment/Plan Assess & Plan/Chief Complaint Anemia Hypotension Possible GI bleed SOB Fatigue Afib Diastolic HF Hypothyroidism HTN HLD Hx DVT GERD Obesity - BMI 37.7 IV fluids discontinued, encourage PO hydration Hold eliquis Surgery consulted EGD completed today Monitor Hg, transfuse as needed, received 1 unit PRBCs yesterday Monitor BP, pressors if hypotensive Continue Protonix Cardiology consulted Started on diltiazem Counseled on benefits of weight loss Patient would be a good candidate for rehab after resolution of her current issues Clinical Quality Measures Admission Status Admission Dx GI bleed DVT/VTE Risk/Contraindication: Contraindications-Pharm: Other *list below* Other: LING ADEN DO 03/22/22 1639: Subjective Subjective/Events-last exam Much improved status Hgb stable Hold OAC for now Move to 4th Review of Systems General: Fatigue Pulmonary: Dyspnea (improving, on exertion) Objective Exam General: Alert, Oriented X3, Cooperative, No Acute Distress Lungs: Clear to Auscultation Heart: No Murmurs Psych/Mental Status: Mental Status NL Assessment/Plan Assessment/Plan Assess & Plan/Chief Complaint Monitor hgb Supportive care Move to 4th Supervisory-Addendum Brief Verification & Attestation Participated in pt care: history, MDM, physical Personally performed: exam, history, MDM, supervision of care Care discussed with: Medical Student Procedures: n/a Results interpretation: Verified all documentation Verification and Attestation of Medical Student E/M Service A medical student performed and documented this service in my presence. I reviewed and verified all information documented by the medical student and made modifications to such information, when appropriate. I personally performed the physical exam and medical decision making. Ling Benitez, Mar 22, 2022,16:38 JOHN BARAJAS Mar 22, 2022 13:41 LING BENITEZ DO Mar 22, 2022 16:39
--- NOTE | 2022-03-22 14:01 | Occupational Therapy Eval ---
OT Evaluation-General/PLF Medical Diagnosis Admission Date Mar 21, 2022 at 11:01 Medical Diagnosis: GI bleed Onset Date: Mar 21, 2022 Therapy Diagnosis Therapy Diagnosis: weakness Height/Weight Height (Feet): 5 Height (Inches): 4.00 Weight (Pounds): 235 Weight (Ounces): 2.0 Precautions Precautions/Isolations: Fall Prevention, Standard Precautions Referral Physician: Emmanuel Referral Reason: Evaluation/Treatment Medical History Additional Medical History afib, diastolic HF, HTN, DVT, skin cancer Current History ED 03/21/22 c/o fatigue & hypotension Social History Home: Single Level Current Living Status: Spouse Entry Into Home: Level Entry handicap accessible house, level entry ADL-Prior Level of Function SCALE: Activities may be completed with or without assistive devices. 2-Cjzuprjayv-depzfvg completes the activity by him/herself with no assistance from a helper. 5-Set-up or Clean-up Assistance-helper sets up or cleans up; patient completes activity. [place] assists only prior to or following the activity. 4-Supervision or Touching Assistance-helper provides verbal cues and/or touching/steadying and/or contact guard assistance as patient completes activity. Assistance may be provided throughout the activity or intermittently. 3-Partial/Moderate Assistance-helper does LESS THAN HALF the effort. [place] lifts, holds or supports trunk or limbs, but provides less than half the effort. 2-Substantial/Maximal Assistance-helper does MORE THAN HALF the effort. [place] lifts or holds trunk or limbs and provides more than half the effort. 8-Wgkyybxfq-jxndnt does ALL the effort. Patient does none of the effort to complete the activity. Or, the assistance of 2 or more helpers is required for the patient to complete the activity. If activity was not attempted, code reason: 7-Patient Refused. 9-Not Applicable-not attempted and the patient did not perform the activity before the current illness, exacerbation or injury. 10-Not Attempted due to Environmental Limitations-(lack of equipment, weather restraints, etc.). 88-Not Attempted due to Medical Conditions or Safety Concerns. ADL PLOF Comments Pt reports IND with ADLS and functional mobility, using FWW. Pt reports her is present while she showers, but she is able to shower herself. Self Care: Independent Functional Cognition: Independent DME/Equipment: Bath Chair, Grab Bars, Shower OT Current Status Subjective Pt up in recliner, agreeable to OT evaluation/tx. Mental Status/Objective Patient Orientation: Person, Place, Situation Attachments: Oxygen Current Glasses/Contacts: Yes Hand Dominance: Right Upper Extremity ROM WFL, BUE shoulder flexion to approx 150 degrees Upper Extremity Coordination WFL Upper Extremity Sensation WFL Upper Extremity Strength grossly 3+/5 ADL-Treatment Eating (QC): 5 (set up assist to open Sprite can. Pt currently on clear liquid diet.) Oral Hygiene (QC): 5 (Per clinical judgment.) Upper Body Dressing (QC): 3 (Min A to don [facility] gown like a robe) Toileting Hygiene (QC): 4 (Per pt and nursing report.) Other Treatments Pt in bed, transferred supine to sit EOB. Pt and spouse provided information about PLOF and home set up. Pt and spouse have lived in their house for 3 years, and it is handicap accessible. Pt declined toileting, as she had already completed with nurse. Pt used FWW to perform functional mobility in halls, 100', then returned to her room, EOB, then supine. Pt able to raise self up towards HOB with instruction for UE/LE placement. Post tx, pt in recliner, call light in reach and all needs met. SBA transfers and mobility, min A supine to sit transfer, SBA sit to supine. Education OT Patient Education: Correct positioning, Energy conservation, Modified ADL techniques, Progress toward Goal/Update tx plan, Purpose of tx/functional activities, Rehab process Teaching Recipient: Patient Teaching Methods: Discussion Response to Teaching: Verbalize Understanding OT Cartoon Animator Goals Senior Care Goals Time Frame: Apr 07, 2022 Eating (QC): 6 Oral Hygiene (QC): 6 Toileting Hygiene (QC): 6 Shower/Bathe Self (QC): 4 Upper Body Dressing (QC): 5 Lower Body Dressing (QC): 4 On/Off Footwear (QC): 4 Additional Goals: 1-Demonstrate ADL Tasks, 2-Verbalize Understanding, 3- ImproveStrength/Pauline 1=Demonstrate adherence to instructed precautions during ADL tasks. 2=Patient will verbalize/demonstrate understanding of assistive devices/modifications for ADL. 3=Patient will improve strength/tolerance for activity to enable patient to perform ADL's. OT Education/Plan Problem List/Assessment Assessment: Decreased Activ Tolerance, Decreased UE Strength, Impaired Funct Balance, Impaired I ADL's, Impaired Self-Care Skills Discharge Recommendations Plan/Recommendations: Continue POC Treatment Plan/Plan of Care Patient would benefit from OT for education, treatment and training to promote independence in ADL's, mobility, safety and/or upper extremity function for ADL's. Plan of Care: ADL Retraining, Functional Mobility, UE Funct Exercise/Act Treatment Duration: Mar 22, 2022 Frequency: 3 times per week (3-5 times per week) Estimated Hrs Per Day: .25 hour per day Agreement: Yes Rehab Potential: Good Time Start Time: 13:36 Stop Time: 13:52 DATE: Mar 22, 2022 Total Time Billed (hr/min): 16 Billed Treatment Time 1, KIKO MARSHALL OT Mar 22, 2022 14:01
--- NOTE | 2022-03-22 14:01 | Physical Therapy Evaluation ---
PT Evaluation-General Medical Diagnosis Admission Date Mar 21, 2022 at 11:01 Medical Diagnosis: GIB/AF Onset Date: Mar 21, 2022 Therapy Diagnosis Therapy Diagnosis: Generalized Weakness Height/Weight Height (Feet): 5 Height (Inches): 4.00 Weight (Pounds): 235 Weight (Ounces): 2.0 Precautions Precautions/Isolations: Fall Prevention, Standard Precautions Weight Bear Status Right Lower Extremity: Right Full Weight Bearing Left Lower Extremity: Left Full Weight Bearing Referral Physician: Emmanuel Reason for Referral: Evaluation/Treatment Medical History Additional Medical History Surgeries: Yes (hyst,back surgery,R middle finger cyst removed) Hysterectomy, Orthopedic Respiratory: No Currently Using CPAP: No Currently Using BIPAP: No Cardiac: Yes Atrial Fibrillation, Deep Vein Thrombosis, High Cholesterol, Hypertension Neurological: No Reproductive Disorders: No 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 9-Qkbengcqik-ctzyscu completes the activity by him/herself with no assistance from a helper. 5-Set-up or Clean-up Assistance-helper sets up or cleans up; patient completes activity. [place] assists only prior to or following the activity. 4-Supervision or Touching Assistance-helper provides verbal cues and/or touching/steadying and/or contact guard assistance as patient completes activity. Assistance may be provided throughout the activity or intermittently. 3-Partial/Moderate Assistance-helper does LESS THAN HALF the effort. [place] lifts, holds or supports trunk or limbs, but provides less than half the effort. 2-Substantial/Maximal Assistance-helper does MORE THAN HALF the effort. [place] lifts or holds trunk or limbs and provides more than half the effort. 6-Hlyfweoqd-wibwyf does ALL the effort. Patient does none of the effort to complete the activity. Or, the assistance of 2 or more helpers is required for the patient to complete the activity. If activity was not attempted, code reason: 7-Patient Refused. 9-Not Applicable-not attempted and the patient did not perform the activity before the current illness, exacerbation or injury. 10-Not Attempted due to Environmental Limitations-(lack of equipment, weather restraints, etc.). 88-Not Attempted due to Medical Conditions or Safety Concerns. Bed Mobility: 6 Transfers (B,C,W/C): 6 Gait: 6 Stairs: 6 Indoor Mobility (Ambulation): Independent Stairs: Independent Prior Devices Use: Walker PT Evaluation-Current Subjective Patient in bed pre-tx, reports no pain, agrees to PT. Pt/Family Goals Return home to independence. Objective Patient Orientation: Person, Place, Situation ROM/Strength ROM Lower Extremities BLE grossly WFL Strength Lower Extremities BLE grossly 3+/5 except 5/5 DF Neuromuscular (Tone, Coordination, Reflexes) Coordination intact Sensory Vision: Wears Glasses Hearing: Functional Sensation Right Lower Extremit: Intact Sensation Left Lower Extremity: Intact Transfers Roll Left to Right (QC): 4 (SBA) Sit to Lying (QC): 3 (Min A holding on to hand to pull herself up) Lying to Sitting/Side of Bed(Q: 4 (SBA) Sit to Stand (QC): 4 (SBA) Chair/Pwf-og-Azjrc Xfer(QC): 4 (SBA) SBA except Min A for llg-me-dgccl Gait Does the Patient Walk?: Yes Mode of Locomotion: Walk Anticipated Mode of Locomotion: Walk Walk 10 feet (QC): 4 Walk 50 ft with 2 Turns(QC): 4 Distance: 100' Gait Assistive Device: FWW Comments/Gait Description SBA, Patient walks with slower gait speed and is steady. Balance Sitting Static: Normal Sitting Dynamic: Normal Standing Static: Normal Standing Dynamic: Normal Treatment Ambulation Assessment/Needs Patient reported felt a bit woozy towards the end of walking and was spiking high pulse rate. Nurse notified. Patient in bed post-tx with nurse call, phone, tray, in room, all needs met. Rehab Potential: Fair PT Linen Controller Goals Linen Controller Goals PT Linen Controller Goals Time Frame: Mar 29, 2022 Roll Left & Right (QC): 6 Sit to Lying (QC): 6 Lying-Sitting on Side/Bed(QC): 6 Sit to Stand (QC): 6 Chair/Rla-su-Bpmqo Xfer(QC): 6 Toilet Transfer (QC): 6 Does the Patient Walk: Yes Walk 10 feet (QC): 6 Walk 50ft with 2 Turns (QC): 6 Walk 150 ft (QC): 6 PT Plan Problem List Problem List: Activity Tolerance, Functional Strength, Safety, Balance, Gait, Transfer, Bed Mobility, ROM Treatment/Plan Treatment Plan: Continue Plan of Care Treatment Plan: Bed Mobility, Education, Functional Activity Pauline, Functional Strength, Gait, Safety, Therapeutic Exercise, Transfers Treatment Duration: Mar 29, 2022 Frequency: 6 times per week Estimated Hrs Per Day: .25 hour per day Patient and/or Family Agrees t: Yes Safety Risks/Education Patient Education: Gait Training, Transfer Techniques, Correct Positioning, Safety Issues Teaching Recipient: Patient Teaching Methods: Demonstration, Discussion Response to Teaching: Reinforcement Needed Discharge Recommendations Plan Patient will perform bed mobility and transfer training, endurance and balance training, gait training and functional strengthening in order to be independent at home. Therapy Discharge Recommendati: Home & Family Time Time In: 1336 Time Out: 1352 DATE: Mar 22, 2022 Total Billed Treatment Time: 16 Total Billed Treatment 1 visit ANGELA Armenta' ANDREY MCCLURE PT Mar 22, 2022 14:01
[2022-03-22 16:00] VITALS: BP 162/90
--- NOTE | 2022-03-22 16:30 | Progress Note - Cardiology ---
Cardiology SOAP Progress Note Subjective: No cp or palp or syncope or shortness of breath No n/v/d Gen malaise and weakness Objective: I&O/Vital Signs 03/22/22 03/22/22 03/22/22 03/22/22 05:00 06:00 06:01 07:00 Pulse 81 77 81 73 Resp 18 18 14 B/P (MAP) 117/77 (90) 135/87 (103) 117/77 115/76 (89) Pulse Ox 95 98 97 O2 Delivery Room Air Room Air Room Air 03/22/22 03/22/22 03/22/22 03/22/22 07:00 08:00 08:00 08:00 Temp 36.6 Pulse 59 70 Resp 14 B/P (MAP) 129/71 (90) Pulse Ox 97 95 O2 Delivery Room Air Room Air 03/22/22 03/22/22 03/22/22 03/22/22 09:00 09:30 09:35 10:00 Pulse 93 88 77 87 Resp 16 16 16 B/P (MAP) 121/71 (88) 126/73 (90) Pulse Ox 96 99 98 96 O2 Delivery Room Air Room Air Room Air Room Air 03/22/22 03/22/22 03/22/22 03/22/22 11:00 12:00 12:00 13:00 Temp 36.8 Pulse 64 78 96 Resp 12 23 B/P (MAP) 135/76 (95) 144/71 (95) Pulse Ox 96 93 O2 Delivery Room Air Room Air 03/22/22 00:00 Intake Total 2035 ml Output Total 750 ml Balance 1285 ml Weight (Pounds): 235 Weight (Ounces): 2.0 Weight (Calculated Kilograms): 106.519206 Constitutional: AAO x 3, well-developed, well-nourished Respiratory: No accessory muscle use, No respiratory distress; chest expansion is symmetric, chest is bilaterally symmetric, lungs clear to auscultation Cardiovascular: irregularly irregular; No JVD; S1 and S2 Gastrointestional: No tender; soft, round; No distended, No guarding; audible bowel sounds Extremities: no lower extremity edema bilateral Neurologic/Psychiatric: grossly intact (moves all extremities) Skin: No rash on exposed areas, No ulcerations on exposed areas Results/Procedures: Labs Laboratory Tests 03/21/22 20:26: Hemoglobin 8.0L, Hematocrit 26L 03/21/22 23:35: Hemoglobin 8.2L, Hematocrit 27L 03/22/22 05:10: Hemoglobin 7.8L, Hematocrit 26L, White Blood Count 7.6, Red Blood Count 3.27L, Mean Corpuscular Volume 79L, Mean Corpuscular Hemoglobin 24L, Mean Corpuscular Hemoglobin Concent 30L, Red Cell Distribution Width 18.3H, Platelet Count 324, Mean Platelet Volume 9.8, Immature Granulocyte % (Auto) 1, Neutrophils (%) (Auto) 52, Lymphocytes (%) (Auto) 34, Monocytes (%) (Auto) 12, Eosinophils (%) (Auto) 2, Basophils (%) (Auto) 1, Neutrophils # (Auto) 3.9, Lymphocytes # (Auto) 2.6, Monocytes # (Auto) 0.9, Eosinophils # (Auto) 0.2, Basophils # (Auto) 0.0, Immature Granulocyte # (Auto) 0.0, Sodium Level 141, Potassium Level 4.1, Chloride Level 109H, Carbon Dioxide Level 20L, Anion Gap 12, Blood Urea Nitrogen 18, Creatinine 0.93, Estimat Glomerular Filtration Rate 60, BUN/Creatinine Ratio 19, Glucose Level 90, Calcium Level 8.6, Corrected Calcium 9.2, Phosphorus Level 3.9, Magnesium Level 2.1, Total Bilirubin 0.4, Aspartate Amino Transf (AST/SGOT) 54H, Alanine Aminotransferase (ALT/SGPT) 33, Alkaline Phosphatase 80, Total Protein 6.2L, Albumin 3.2 Microbiology 03/21/22 MRSA Screen - Final, Complete MRSA not isolated 03/21/22 Blood Culture - Preliminary, Resulted No growth Laboratory Tests 03/21/22 09:56 03/21/22 20:26 03/21/22 23:35 03/22/22 05:10 A/P: Assessment: Hypotension - likely d/t vol depletion d/t anemia - resolved Anemia - undetermined etiology - management per medical/surgical services - s/p EGD today by Dr. Blake - pt reports no bleeding found H/O Syncope on 12/17/17 - probably vasovagal in a hot shower. -ILR implanted 12/25/17. 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 Hunt showed mild CAD. Normal LVEDP - Echocardiogram of October 25, 2017 showed concentric LVH. LVEF 60-65%. LA mod to severely dilated. Mild to mod regurg. Trivial aortic regurg. Mod TR. PASP 25-30 mmHg PA Fib - of unknown age, first diagnosed on a preop ECG at the [facility] on 10/03/17. NSR on ECG of 01/03/18 - OAC with Eliquis - currently being held Bilateral lower limb discomfort - nonvascular (segmental pressures of Apr 2019 were normal) Chronic back pain - managed by PCP Exertional shortness of breath - chronic, unchanged Chronic joint pain - manged by PCP Obesity - with BMI approx 38 Hypothyroidism - treated with thyroid replacement Hyperlipidemia - but intolerance to statins (h/o liver enz elevation) Chronic bilat leg swelling - likely related to venous insuff Plan: Anemia - undetermined etiology; per pt endoscopy by Dr. Blake did not show any active bleeding - awaiting report - Advise Hgb be kept 8.0 or greater PAF - currently a-fib with controlled rate - OAC with Eliquis - s/p endoscopy with no source of bleeding found - advise resumption of OAC for stroke prophylaxis as soon as possible, when ok with [facility]/medical services - Continue Cardizeadonay CD Progressive dyspnea - likely d/t anemia Monitor lab closely SARAH AMARAL MD FACP FACC CCDS Mar 22, 2022 16:30
--- NOTE | 2022-03-22 17:18 | Progress Note - Cardiology ---
Cardiology SOAP Progress Note Subjective: No cp or palp or syncope or shortness of breath No n/v/d No focal weakness Gen weakness and malaise are present Objective: I&O/Vital Signs 03/22/22 03/22/22 03/22/22 03/22/22 06:00 06:01 07:00 07:00 Pulse 77 81 73 59 Resp 18 14 B/P (MAP) 135/87 (103) 117/77 115/76 (89) Pulse Ox 98 97 O2 Delivery Room Air Room Air 03/22/22 03/22/22 03/22/22 03/22/22 08:00 08:00 08:00 09:00 Temp 36.6 Pulse 70 93 Resp 14 16 B/P (MAP) 129/71 (90) 121/71 (88) Pulse Ox 97 95 96 O2 Delivery Room Air Room Air Room Air 03/22/22 03/22/22 03/22/22 03/22/22 09:30 09:35 10:00 11:00 Pulse 88 77 87 64 Resp 16 16 12 B/P (MAP) 126/73 (90) 135/76 (95) Pulse Ox 99 98 96 96 O2 Delivery Room Air Room Air Room Air Room Air 03/22/22 03/22/22 03/22/22 12:00 12:00 13:00 Temp 36.8 Pulse 78 96 Resp 23 B/P (MAP) 144/71 (95) Pulse Ox 93 O2 Delivery Room Air 03/22/22 00:00 Intake Total 2035 ml Output Total 750 ml Balance 1285 ml Weight (Pounds): 235 Weight (Ounces): 2.0 Weight (Calculated Kilograms): 106.942638 Constitutional: AAO x 3, well-developed, well-nourished Respiratory: No accessory muscle use, No respiratory distress; chest expansion is symmetric, chest is bilaterally symmetric, lungs clear to auscultation Cardiovascular: irregularly irregular; No JVD; S1 and S2 Gastrointestional: No tender; soft, round; No distended, No guarding; audible bowel sounds Extremities: no lower extremity edema bilateral Neurologic/Psychiatric: grossly intact (moves all extremities) Skin: No rash on exposed areas, No ulcerations on exposed areas Results/Procedures: Labs Laboratory Tests 03/21/22 20:26: Hemoglobin 8.0L, Hematocrit 26L 03/21/22 23:35: Hemoglobin 8.2L, Hematocrit 27L 03/22/22 05:10: Hemoglobin 7.8L, Hematocrit 26L, White Blood Count 7.6, Red Blood Count 3.27L, Mean Corpuscular Volume 79L, Mean Corpuscular Hemoglobin 24L, Mean Corpuscular Hemoglobin Concent 30L, Red Cell Distribution Width 18.3H, Platelet Count 324, M rubi Platelet Volume 9.8, Immature Granulocyte % (Auto) 1, Neutrophils (%) (Auto) 52, Lymphocytes (%) (Auto) 34, Monocytes (%) (Auto) 12, Eosinophils (%) (Auto) 2, Basophils (%) (Auto) 1, Neutrophils # (Auto) 3.9, Lymphocytes # (Auto) 2.6, Monocytes # (Auto) 0.9, Eosinophils # (Auto) 0.2, Basophils # (Auto) 0.0, Immature Granulocyte # (Auto) 0.0, Sodium Level 141, Potassium Level 4.1, Chloride Level 109H, Carbon Dioxide Level 20L, Anion Gap 12, Blood Urea Nitrogen 18, Creatinine 0.93, Estimat Glomerular Filtration Rate 60, BUN/Creatinine Ratio 19, Glucose Level 90, Calcium Level 8.6, Corrected Calcium 9.2, Phosphorus Level 3.9, Magnesium Level 2.1, Total Bilirubin 0.4, Aspartate Amino Transf (AST/SGOT) 54H, Alanine Aminotransferase (ALT/SGPT) 33, Alkaline Phosphatase 80, Total Protein 6.2L, Albumin 3.2 Microbiology 03/21/22 MRSA Screen - Final, Complete MRSA not isolated 03/21/22 Blood Culture - Preliminary, Resulted No growth A/P: Assessment: Hypotension - likely d/t vol depletion d/t anemia - resolved Anemia - undetermined etiology - management per medical/surgical services - s/p EGD today by Dr. Blake - pt reports no bleeding found H/O Syncope on 12/17/17 - probably vasovagal in a hot shower. -ILR implanted 12/25/17. 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 Hunt showed mild CAD. Normal LVEDP - Echocardiogram of October 25, 2017 showed concentric LVH. LVEF 60-65%. LA mod to severely dilated. Mild to mod regurg. Trivial aortic regurg. Mod TR. PASP 25-30 mmHg PA Fib - of unknown age, first diagnosed on a preop ECG at the [facility] on 10/03/17. NSR on ECG of 01/03/18 - OAC with Eliquis - currently being held Bilateral lower limb discomfort - nonvascular (segmental pressures of Apr 2019 were normal) Chronic back pain - managed by PCP Exertional shortness of breath - chronic, unchanged Chronic joint pain - manged by PCP Obesity - with BMI approx 38 Hypothyroidism - treated with thyroid replacement Hyperlipidemia - but intolerance to statins (h/o liver enz elevation) Chronic bilat leg swelling - likely related to venous insuff Plan: Anemia - undetermined etiology; per pt endoscopy by Dr. Blake did not show any active bleeding - awaiting report - Advise Hgb be kept 8.0 or greater PAF - currently a-fib with controlled rate - OAC with Eliquis - s/p endoscopy with no source of bleeding found - advise resumption of OAC for stroke prophylaxis as soon as possible, when ok with Surgical/Medical services - Continue Cardizem CD Progressive dyspnea - likely d/t anemia Monitor lab closely Discussed her CV issues with her and her family, and answered questions SARAH AMARAL MD FACP FAC CCDS Mar 22, 2022 17:18
[2022-03-22 20:24] VITALS: BP 130/82
--- NOTE | 2022-03-22 21:27 | Anesthesia-Procedure Note ---
Procedures/Interventions Procedure Start/Stop/Diagnosis Date of Procedure: Mar 22, 2022 Start Time: 21:20 Brief History Called to ICU 8 for difficult IV start. Patient needs a hep lock. 22 g IV started in patient's left wrist x1 attempt. Secured with dressing. Reported off to RN. Stop Time: 21:24 MILTON CARR CRNA Mar 22, 2022 21:27
[2022-03-22 23:43] VITALS: BP 131/90
[2022-03-23] VITALS (7 sets, daily range): BP systolic 119–152; BP diastolic 65–95
--- NOTE | 2022-03-23 05:20 | Progress Note ---
Subjective Date Seen by a Provider: Mar 23, 2022 Time Seen by a Provider: 09:30 Subjective/Events-last exam Much improved status Hgb stable Iron infusions and Vit B12 will be added No pain reported Checked meds and labs Review of Systems General: Fatigue, Malaise Focused Exam Lactate Level 03/21/22 09:56: Lactic Acid Level 1.62 Objective Exam Last Set of Vital Signs Vital Signs Date Time Temp Pulse Resp B/P (MAP) Pulse Ox O2 Delivery O2 Flow Rate FiO2 03/23/22 02:54 36.7 64 21 133/95 (108) 93 Room Air 03/21/22 12:28 21 Capillary Refill : Less Than 3 Seconds I&O Intake and Output 03/23/22 00:00 Intake Total 2310 ml Output Total 2000 ml Balance 310 ml Intake Oral 580 ml IV Total 1730 ml Output Urine Total 2000 ml # Bowel Movements 1 General: Alert, Oriented X3, Cooperative, No Acute Distress Lungs: Other (Irr Irr) Heart: Regular Rate, Normal S1, Normal S2, No Murmurs Neuro: Normal Gait, Normal Speech, Strength at 5/5 X4 Ext, Normal Tone Psych/Mental Status: Mental Status NL, Mood NL Results Lab Microbiology 03/21/22 MRSA Screen - Final, Complete MRSA not isolated 03/21/22 Blood Culture - Preliminary, Resulted No growth Assessment/Plan Assessment/Plan Assess & Plan/Chief Complaint Assessment: Anemia severe and symptomatic Hypotension now resolved Presumed GI bleed SOB improved Fatigue Afib chronic Diastolic HF Hypothyroidism HTN HLD Hx DVT Plan: HL IV fluids Hold eliquis Appreciate surgery Monitor Hg, transfuse as needed Monitor BP, pressors if hypotensive Start on Protonix Iron infusions Vit B12 Clinical Quality Measures Admission Status Admission Dx ICU Queded orders placed DVT/VTE Risk/Contraindication: Contraindications-Pharm: Other *list below* Other: VIOLA ADEN DO Mar 23, 2022 05:20
[2022-03-23] MEDS: LEVOTHYROXINE 75 MCG (LEVOTHROID) TABLET PO SCH (05:30)
[2022-03-23 05:37] LABS: BASOPHILS % (AUTO) 1 % (0-10); EOSINOPHILS # (AUTO) 0.2 10^3/uL (0.0-0.3); EOSINOPHILS % (AUTO) 3 % (0-10); HEMATOCRIT 26 % (35-52); HEMOGLOBIN 8.1 g/dL (11.5-16.0); LYMPHOCYTES # (AUTO) 2.2 10^3/uL (1.0-4.0); LYMPHOCYTES % (AUTO) 28 % (12-44); MEAN CORPUSCULAR HEMOGLOBIN 24 pg (25-34); MEAN CORPUSCULAR HGB CONC 31 g/dL (32-36); MEAN CORPUSCULAR VOLUME 78 fL (80-99); MEAN PLATELET VOLUME 9.9 fL (9.0-12.2); MONOCYTES # (AUTO) 0.8 10^3/uL (0.0-1.0); MONOCYTES % (AUTO) 11 % (0-12); NEUTROPHILS # (AUTO) 4.6 10^3/uL (1.8-7.8); NEUTROPHILS % (AUTO) 58 % (42-75); PLATELET COUNT 332 10^3/uL (130-400); WHITE BLOOD COUNT 7.9 10^3/uL (4.3-11.0)
--- NOTE | 2022-03-23 05:40 | OPERATIVE REPORT ---
DATE OF SERVICE: 03/22/2022 PREOPERATIVE DIAGNOSIS: Anemia, possible gastrointestinal bleed. POSTOPERATIVE DIAGNOSIS: Normal EGD. PROCEDURE: Esophagogastroduodenoscopy SURGEON: Arabella Blake DO. ANESTHESIA: Per . ESTIMATED BLOOD LOSS: None. COMPLICATIONS: None. INDICATIONS: The patient is an 86-year-old female with anemia. She understands risks and benefits of procedure and wishes to proceed. Consent signed in chart. DESCRIPTION OF PROCEDURE: The patient was taken to the endoscopy suite, placed in the left lateral recumbent position. A timeout was performed. Scope was inserted in the mouth, down the esophagus, stomach and the duodenum without difficulty. There were no polyps, masses or ulcerations of the duodenum. Scope was retracted back into the stomach where it was further insufflated. No polyps, mass ulcerations. Scope was retroflexed and no other pathology. Scope was returned to its normal position and slowly withdrawn to the distal esophagus, which had a normal appearance. No polyps, masses or ulcerations. Scope was slowly retracted back, completely removed. The patient tolerated the procedure well without complications and taken to recovery room in stable condition. RECOMMENDATIONS: Her anticoagulation has been on hold and started back on and see how her hemoglobin does. If she remains stable, could be anemia of chronic disease. If continues to drop, we would consider a colonoscopy. Job ID: [id number] DocumentID: [id number] Dictated Date: 03/22/2022 18:28:45 Seal Mixing Operator Date: 03/23/2022 05:39:00 Dictated By: ARABELLA BLAKE DO
[2022-03-23 05:54] LABS: ALBUMIN 3.3 GM/DL (3.2-4.5)
[2022-03-23 05:55] LABS: POTASSIUM 3.8 MMOL/L (3.6-5.0)
[2022-03-23 05:57] LABS: TOTAL PROTEIN 6.4 GM/DL (6.4-8.2)
[2022-03-23 05:59] LABS: BILIRUBIN,TOTAL 0.4 MG/DL (0.1-1.0)
[2022-03-23 06:01] LABS: CREATININE SERUM 0.95 MG/DL (0.60-1.30)
[2022-03-23] MEDS ORDERED: PANTOPRAZOLE 40 MG (PROTONIX) TAB PO SCH (09:00)
[2022-03-23] MEDS: ALLOPURINOL 100 MG (ZYLOPRIM) TAB PO SCH (09:03)
[2022-03-23] MEDS: SENNOSIDES 8.6 MG (SENOKOT) TAB PO SCH ×2 (09:03→19:31)
[2022-03-23] MEDS: dilTIAZem120 MG (CARDIZEM CD) CAP PO SCH (09:03)
[2022-03-23] MEDS: DOCUSATE SODIUM 100 MG (COLACE) CAP PO SCH ×2 (09:03→19:31)
--- NOTE | 2022-03-23 09:13 | Physical Therapy Daily Note ---
PT Daily Note-Current Subjective Patient agrees to PT. No c/o at this time Pain Section J - Health Conditions 1. Rarely or not at all 2. Occasionally 3. Frequently 4. Almost constantly 8. Unable to answer Pain Effect on Sleep: 1 Pain Interference with Therapy: 1 Pain Interference w/Day-to-Day: 1 Mental Status Patient Orientation: Normal For Age Transfers SCALE: Activities may be completed with or without assistive devices. 6-Wjamndadvn-yogrnzg completes the activity by him/herself with no assistance from a helper. 5-Set-up or Clean-up Assistance-helper sets up or cleans up; patient completes activity. [place] assists only prior to or following the activity. 4-Supervision or Touching Assistance-helper provides verbal cues and/or touching/steadying and/or contact guard assistance as patient completes activity. Assistance may be provided throughout the activity or intermittently. 3-Partial/Moderate Assistance-helper does LESS THAN HALF the effort. [place] lifts, holds or supports trunk or limbs, but provides less than half the effort. 2-Substantial/Maximal Assistance-helper does MORE THAN HALF the effort. [place] lifts or holds trunk or limbs and provides more than half the effort. 6-Yossghevx-qjoawm does ALL the effort. Patient does none of the effort to complete the activity. Or, the assistance of 2 or more helpers is required for the patient to complete the activity. If activity was not attempted, code reason: 7-Patient Refused. 9-Not Applicable-not attempted and the patient did not perform the activity before the current illness, exacerbation or injury. 10-Not Attempted due to Environmental Limitations-(lack of equipment, weather restraints, etc.). 88-Not Attempted due to Medical Conditions or Safety Concerns. Sit to Stand (QC): 5 Weight Bearing Right Lower Extremity: Right Full Weight Bearing Left Lower Extremity: Left Full Weight Bearing Gait Training Distance: 150' Walk 10 feet (QC): 4 Walk 50 ft with 2 Turns(QC): 4 Walk 150 ft (QC): 4 Gait Assistive Device: FWW Exercises Seated Therapy Exercises: Ankle pumps, Long arc quads Seated Reps: 15 Assessment Patient remains up in recliner with breakfast in situ. Increase activity as tolerated by patient. PT Longterm Goals Finisher Polisher Goals PT Longterm Goals Time Frame: Mar 29, 2022 Roll Left & Right (QC): 6 Sit to Lying (QC): 6 Lying-Sitting on Side/Bed(QC): 6 Sit to Stand (QC): 6 Chair/Kun-gn-Mcnvu Xfer(QC): 6 Toilet Transfer (QC): 6 Does the Patient Walk: Yes Walk 10 feet (QC): 6 Walk 50ft with 2 Turns (QC): 6 Walk 150 ft (QC): 6 PT Plan Treatment/Plan Treatment Plan: Continue Plan of Care Treatment Plan: Bed Mobility, Education, Functional Activity Pauline, Functional Strength, Gait, Safety, Therapeutic Exercise, Transfers Treatment Duration: Mar 29, 2022 Frequency: 6 times per week Estimated Hrs Per Day: .25 hour per day Patient and/or Family Agrees t: Yes Time Time In: 815 Time Out: 825 DATE: Mar 23, 2022 Total Billed Treatment Time: 10 Total Billed Treatment 1 visit FA 10 min EMY MONTANA PT Mar 23, 2022 09:13
--- NOTE | 2022-03-23 09:59 | Progress Note - Surgery ---
WAYLON CARTER 03/23/22 0959: Subjective Date Seen by a Provider: Mar 23, 2022 Time Seen by a Provider: 08:05 Subjective/Events-last exam Patient sitting upright in chair when I came in today. Patient's Hgb 8.1 today, 7.8 last blood draw. Patient is set to receive an iron infusion today. Patient does state that she still get dizzy is she sits or stands too fast, or over exerts herself. Patient has no restarted eliquis. Otherwise no other complaints. Review of Systems General: No Chills, No Night Sweats HEENT: No Head Aches; Other (dizziness/lt headed per HPI) Cardiovascular: Lt Headedness (see hpi ); No: Chest Pain, Palpitations Gastrointestinal: No: Nausea, Vomiting, Abdominal Pain Genitourinary: No Dysuria, No Frequency Neurological: Weakness (generalized. Improving. ); No: Numbness Focused Exam Lactate Level 03/21/22 09:56: Lactic Acid Level 1.62 Objective Exam Vital Signs Date Time Temp Pulse Resp B/P (MAP) Pulse Ox O2 Delivery O2 Flow Rate FiO2 03/23/22 09:51 Room Air 03/23/22 08:58 95 Room Air 03/23/22 07:53 36.3 84 20 128/65 (86) 95 Room Air 03/23/22 02:54 36.7 64 21 133/95 (108) 93 Room Air 03/22/22 23:43 36.5 81 13 131/90 (104) 99 Room Air 03/22/22 21:24 98 Room Air 03/22/22 20:24 36.1 76 14 130/82 (98) 97 Room Air 03/22/22 16:00 37.0 68 14 162/90 (114) 94 Room Air 03/22/22 13:00 96 03/22/22 12:00 36.8 03/22/22 12:00 78 23 144/71 (95) 93 Room Air 03/22/22 11:00 64 12 135/76 (95) 96 Room Air 03/22/22 10:00 87 16 126/73 (90) 96 Room Air I & O 03/23/22 07:00 Intake Total 1460 ml Output Total 1200 ml Balance 260 ml Capillary Refill : Less Than 3 Seconds General Appearance: No Apparent Distress, WD/WN HEENT: PERRL/EOMI Neck: Non Tender, Supple Respiratory: Chest Non Tender, Lungs Clear, Normal Breath Sounds, No Accessory Muscle Use, No Respiratory Distress Cardiovascular: No Murmur, Irregularly Irregular Peripheral Pulses: 2+ Radial Pulses (R), 2+ Radial Pulses (L) Gastrointestinal: non tender, soft Extremity: Non Tender, No Calf Tenderness, Pedal Edema (trace bilateral ) Neurologic/Psychiatric: Alert, Oriented x3, Normal Mood/Affect Skin: Normal Color, Warm/Dry Results Lab Laboratory Tests 03/23/22 05:24: White Blood Count 7.9, Red Blood Count 3.36L, Hemoglobin 8.1L, Hematocrit 26L, Mean Corpuscular Volume 78L, Mean Corpuscular Hemoglobin 24L, Mean Corpuscular Hemoglobin Concent 31L, Red Cell Distribution Width 18.3H, Platelet Count 332, Mean Platelet Volume 9.9, Immature Granulocyte % (Auto) 1, Neutrophils (%) (Auto) 58, Lymphocytes (%) (Auto) 28, Monocytes (%) (Auto) 11, Eosinophils (%) (Auto) 3, Basophils (%) (Auto) 1, Neutrophils # (Auto) 4.6, Lymphocytes # (Auto) 2.2, Monocytes # (Auto) 0.8, Eosinophils # (Auto) 0.2, Basophils # (Auto) 0.0, Immature Granulocyte # (Auto) 0.0, Sodium Level 139, Potassium Level 3.8, Chloride Level 107, Carbon Dioxide Level 22, Anion Gap 10, Blood Urea Nitrogen 16, Creatinine 0.95, Estimat Glomerular Filtration Rate 58, BUN/Creatinine Ratio 17, Glucose Level 97, Calcium Level 9.0, Corrected Calcium 9.6, Total Bilirubin 0.4, Aspartate Amino Transf (AST/SGOT) 39H, Alanine Aminotransferase (ALT/SGPT) 33, Alkaline Phosphatase 79, Total Protein 6.4, Albumin 3.3 Microbiology 03/21/22 MRSA Screen - Final, Complete MRSA not isolated 03/21/22 Blood Culture - Preliminary, Resulted No growth Assessment/Plan Assessment/Plan Assessment/Plan Acute blood loss anemia - stable, symptomatic Atrial Fibrillation Orthostasis Plan Track and Trend Hgb - transfuse as needed Hbg <8.0 per Cardiology Patient to receive iron transfusion today Negative for acute upper GI bleed per endoscopy Patient has not restarted eliquis yet. Suspect patient will bleed once it is restarted. But, [id number] score is 7. Plan on restarting Eliquis tomorrow if Hgb is stable today. Progress diet as tolerated. If patient remains stable today, may be able to go home tomorrow. Clinical Quality Measures DVT/VTE Risk/Contraindication: Contraindications-Pharm: Other *list below* Other: REHAN BO DO 03/23/22 1018: Subjective Time Seen by a Provider: 09:36 Subjective/Events-last exam Pt seen and examined, states "I am feeling much better than yesterday, still a little weak". Had a BM last night that had no blood. Tolerating diet and scheduled for iron transfusion. Review of Systems General: No Chills, No Night Sweats Cardiovascular: No: Chest Pain, Palpitations Gastrointestinal: No: Nausea, Vomiting, Abdominal Pain Genitourinary: No Dysuria, No Frequency Objective Exam General Appearance: No Apparent Distress, Obese HEENT: PERRL/EOMI Respiratory: Chest Non Tender, Lungs Clear, Normal Breath Sounds, No Accessory Muscle Use, No Respiratory Distress Cardiovascular: No Murmur, Irregularly Irregular Gastrointestinal: non tender, soft Extremity: Non Tender, No Calf Tenderness, Pedal Edema (trace bilateral ) Neurologic/Psychiatric: Alert, Oriented x3 Assessment/Plan Assessment/Plan Assessment/Plan Acute blood loss anemia - stable, symptomatic Atrial Fibrillation Orthostasis Plan Track and Trend Hgb - transfuse as needed Hbg <8.0 per Cardiology, Patient to receive iron transfusion today, Negative for acute upper GI bleed per endoscopy. If she bleeds again will do inpt colonoscopy, otherwise plan for outpt colonoscopy. Patient has not restarted eliquis yet. Suspect patient will bleed once it is restarted. But, [id number] score is 7. Plan on restarting Eliquis tomorrow if Hgb is stable today. Progress diet as tolerated. If patient remains stable today, may be able to go home tomorrow. Supervisory-Addendum Brief Verification & Attestation Participated in pt care: history, MDM, physical Personally performed: exam, history, MDM, supervision of care Care discussed with: Medical Student Procedures: n/a Verification and Attestation of Medical Student E/M Service A medical student performed and documented this service. I then reviewed and verified all information documented by the medical student and made mod ifications to such information, when appropriate. I personally performed a physical exam, medical decision making and then discussed any differences between the notes and made revisions as necessary to create one note. Rehan Bañuelos , 03/23/22 , 10:17 WAYLON CARTER Mar 23, 2022 09:59 REHAN BAÑUELOS DO Mar 23, 2022 10:18
[2022-03-23] MEDS ORDERED: IRON SUCROSE 200 MG/10 ML (VENOFER) VIAL IV SCH (10:30)
[2022-03-23] MEDS ORDERED: CYANOCOBALAMIN INJ 1000 MCG/ML IM NR (11:00)
--- NOTE | 2022-03-23 11:29 | Occ Therapy Progress Note ---
Therapy Progress Note OT has checked on pt. several times this morning. Pt. has family in room, and has low iron. Pt. to receive iron soon due to low hemoglobin. OT will check back tomorrow. [id number] MAURICIO JACINTO OT Mar 23, 2022 11:29
--- NOTE | 2022-03-23 14:06 | Progress Note - Cardiology ---
Cardiology SOAP Progress Note Subjective: No cp or palp or syncope or shortness of breath Gen malaise and weakness No n/v/d Objective: I&O/Vital Signs 03/23/22 03/23/22 03/23/22 03/23/22 02:54 07:53 08:58 09:51 Temp 36.7 36.3 Pulse 64 84 Resp 21 20 B/P (MAP) 133/95 (108) 128/65 (86) Pulse Ox 93 95 95 O2 Delivery Room Air Room Air Room Air Room Air 03/23/22 11:49 Temp 36.4 Pulse 81 Resp 20 B/P (MAP) 124/76 (92) Pulse Ox 94 O2 Delivery Room Air 03/23/22 00:00 Intake Total 1210 ml Output Total 800 ml Balance 410 ml Weight (Pounds): 235 Weight (Ounces): 2.0 Weight (Calculated Kilograms): 106.749813 Constitutional: AAO x 3, well-developed, well-nourished Respiratory: No accessory muscle use, No respiratory distress; chest expansion is symmetric, chest is bilaterally symmetric, lungs clear to auscultation Cardiovascular: irregularly irregular; No JVD; S1 and S2 Gastrointestional: No tender; soft, round; No distended, No guarding; audible bowel sounds Extremities: no lower extremity edema bilateral Neurologic/Psychiatric: other (moves all limbs equally) Skin: No rash on exposed areas, No ulcerations on exposed areas Results/Procedures: Labs Laboratory Tests 03/23/22 05:24: White Blood Count 7.9, Red Blood Count 3.36L, Hemoglobin 8.1L, Hematocrit 26L, Mean Corpuscular Volume 78L, Mean Corpuscular Hemoglobin 24L, Mean Corpuscular Hemoglobin Concent 31L, Red Cell Distribution Width 18.3H, Platelet Count 332, Mean Platelet Volume 9.9, Immature Granulocyte % (Auto) 1, Neutrophils (%) (Auto) 58, Lymphocytes (%) (Auto) 28, Monocytes (%) (Auto) 11, Eosinophils (%) (Auto) 3, Basophils (%) (Auto) 1, Neutrophils # (Auto) 4.6, Lymphocytes # (Auto) 2.2, Monocytes # (Auto) 0.8, Eosinophils # (Auto) 0.2, Basophils # (Auto) 0.0, Immature Granulocyte # (Auto) 0.0, Sodium Level 139, Potassium Level 3.8, Chloride Level 107, Carbon Dioxide Level 22, Anion Gap 10, Blood Urea Nitrogen 16, Creatinine 0.95, Estimat Glomerular Filtration Rate 58, BUN/Creatinine Ratio 17, Glucose Level 97, Calcium Level 9.0, Corrected Calcium 9.6, Total Bilirubin 0.4, Aspartate Amino Transf (AST/SGOT) 39H, Alanine Aminotransferase (ALT/SGPT) 33, Alkaline Phosphatase 79, Total Protein 6.4, Albumin 3.3 Microbiology 03/21/22 MRSA Screen - Final, Complete MRSA not isolated 03/21/22 Blood Culture - Preliminary, Resulted No growth Laboratory Tests 03/21/22 20:26 03/21/22 23:35 03/22/22 05:10 03/23/22 05:24 A/P: Assessment: Hypotension - likely d/t vol depletion d/t anemia - resolved Anemia - undetermined etiology - management per medical/surgical services - s/p EGD today by Dr. Blake - pt reports no bleeding found H/O Syncope on 12/17/17 - probably vasovagal in a hot shower. -ILR implanted 12/25/17. 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 Hunt showed mild CAD. Normal LVEDP - Echocardiogram of October 25, 2017 showed concentric LVH. LVEF 60-65%. LA mod to severely dilated. Mild to mod regurg. Trivial aortic regurg. Mod TR. PASP 25-30 mmHg PA Fib - of unknown age, first diagnosed on a preop ECG at the [facility] on 10/03/17. NSR on ECG of 01/03/18 - OAC with Eliquis - currently being held Bilateral lower limb discomfort - nonvascular (segmental pressures of Apr 2019 were normal) Chronic back pain - managed by PCP Exertional shortness of breath - chronic, unchanged Chronic joint pain - manged by PCP Obesity - with BMI approx 38 Hypothyroidism - treated with thyroid replacement Hyperlipidemia - but intolerance to statins (h/o liver enz elevation) Chronic bilat leg swelling - likely related to venous insuff Plan: Anemia - undetermined etiology; EGD by Dr. Blake did not show any active bleeding on 03/22/22 - Advise Hgb be kept 8.0 or greater PAF - currently a-fib with controlled rate - OAC with Eliquis - advise resumption of OAC for stroke prophylaxis as soon as possible, when ok with Surgical/Medical services - Continue Johnzeadonay CD Progressive dyspnea - likely d/t anemia Monitor lab closely Discussed her CV issues with her and her family, and answered questions SARAH AMARAL MD FACP FACC CCDS Mar 23, 2022 14:06
[2022-03-23] MEDS ORDERED: APIXABAN 5 MG (ELIQUIS) TABLET PO SCH (21:00)
[2022-03-24 03:36] VITALS: BP 128/72
[2022-03-24] MEDS: LEVOTHYROXINE 75 MCG (LEVOTHROID) TABLET PO SCH (05:36)
--- NOTE | 2022-03-24 06:12 | Progress Note ---
Subjective Date Seen by a Provider: Mar 24, 2022 Time Seen by a Provider: 10:00 Focused Exam Lactate Level 03/21/22 09:56: Lactic Acid Level 1.62 Objective Exam Last Set of Vital Signs Vital Signs Date Time Temp Pulse Resp B/P (MAP) Pulse Ox O2 Delivery O2 Flow Rate FiO2 03/24/22 03:36 36.6 81 18 128/72 (90) 98 Room Air 03/21/22 12:28 21 Capillary Refill : Less Than 3 Seconds I&O Intake and Output 03/24/22 00:00 Intake Total 1670 ml Balance 1670 ml Intake Oral 1670 ml # Voids 6 # Bowel Movements 2 Results Lab Microbiology 03/21/22 MRSA Screen - Final, Complete MRSA not isolated 03/21/22 Blood Culture - Preliminary, Resulted No growth Assessment/Plan Assessment/Plan Assess & Plan/Chief Complaint Assessment: Anemia severe and symptomatic Hypotension now resolved Presumed GI bleed SOB improved Fatigue Afib chronic Diastolic HF Hypothyroidism HTN HLD Hx DVT Plan: HL IV fluids Hold eliquis Appreciate surgery Monitor Hg, transfuse as needed Monitor BP, pressors if hypotensive Start on Protonix Iron infusions Vit B12 Clinical Quality Measures Admission Status Admission Dx ICU Queded orders placed DVT/VTE Risk/Contraindication: Contraindications-Pharm: Other *list below* Other: VIOLA ADEN DO Mar 24, 2022 06:12
[2022-03-24 06:19] LABS: BASOPHILS % (AUTO) 1 % (0-10); EOSINOPHILS # (AUTO) 0.2 10^3/uL (0.0-0.3); EOSINOPHILS % (AUTO) 2 % (0-10); HEMATOCRIT 27 % (35-52); HEMOGLOBIN 8.2 g/dL (11.5-16.0); LYMPHOCYTES # (AUTO) 2.3 10^3/uL (1.0-4.0); LYMPHOCYTES % (AUTO) 29 % (12-44); MEAN CORPUSCULAR HEMOGLOBIN 24 pg (25-34); MEAN CORPUSCULAR HGB CONC 31 g/dL (32-36); MEAN CORPUSCULAR VOLUME 79 fL (80-99); MEAN PLATELET VOLUME 9.9 fL (9.0-12.2); MONOCYTES # (AUTO) 0.8 10^3/uL (0.0-1.0); MONOCYTES % (AUTO) 10 % (0-12); NEUTROPHILS # (AUTO) 4.4 10^3/uL (1.8-7.8); NEUTROPHILS % (AUTO) 57 % (42-75); PLATELET COUNT 324 10^3/uL (130-400); WHITE BLOOD COUNT 7.8 10^3/uL (4.3-11.0)
[2022-03-24 06:43] LABS: ALBUMIN 3.3 GM/DL (3.2-4.5); BILIRUBIN,TOTAL 0.3 MG/DL (0.1-1.0); CALCIUM 8.9 MG/DL (8.5-10.1); CREATININE SERUM 0.97 MG/DL (0.60-1.30); POTASSIUM 3.8 MMOL/L (3.6-5.0); TOTAL PROTEIN 6.6 GM/DL (6.4-8.2)
[2022-03-24] MEDS ORDERED: CYANOCOBALAMIN 1,000 MCG (VITAMIN B-12) TABLET PO SCH (07:00)
[2022-03-24] MEDS ORDERED: PANTOPRAZOLE 40 MG (PROTONIX) TAB PO SCH (07:00)
[2022-03-24 07:23] VITALS: BP 132/84
[2022-03-24] MEDS: SENNOSIDES 8.6 MG (SENOKOT) TAB PO SCH (08:37)
[2022-03-24] MEDS: dilTIAZem120 MG (CARDIZEM CD) CAP PO SCH (08:37)
[2022-03-24] MEDS: DOCUSATE SODIUM 100 MG (COLACE) CAP PO SCH (08:37)
[2022-03-24] MEDS: ALLOPURINOL 100 MG (ZYLOPRIM) TAB PO SCH (08:37)
[2022-03-24] MEDS: ACETAMINOPHEN 325 MG TABLET PO PRN (08:38)
--- NOTE | 2022-03-24 10:43 | Physical Therapy Daily Note ---
PT Daily Note-Current Subjective Patient sitting in the chair upon PT arrival, agreeable to treatment. Rates pain at 0/10 currently. Pain Section J - Health Conditions 1. Rarely or not at all 2. Occasionally 3. Frequently 4. Almost constantly 8. Unable to answer Pain Effect on Sleep: 1 Pain Interference with Therapy: 1 Pain Interference w/Day-to-Day: 1 Transfers SCALE: Activities may be completed with or without assistive devices. 4-Jqhvmgcavc-efhreqn completes the activity by him/herself with no assistance from a helper. 5-Set-up or Clean-up Assistance-helper sets up or cleans up; patient completes activity. [place] assists only prior to or following the activity. 4-Supervision or Touching Assistance-helper provides verbal cues and/or touching/steadying and/or contact guard assistance as patient completes activity. Assistance may be provided throughout the activity or intermittently. 3-Partial/Moderate Assistance-helper does LESS THAN HALF the effort. Morrison lifts, holds or supports trunk or limbs, but provides less than half the effort. 2-Substantial/Maximal Assistance-helper does MORE THAN HALF the effort. Morrison lifts or holds trunk or limbs and provides more than half the effort. 3-Bqeutwpot-thjpds does ALL the effort. Patient does none of the effort to complete the activity. Or, the assistance of 2 or more helpers is required for the patient to complete the activity. If activity was not attempted, code reason: 7-Patient Refused. 9-Not Applicable-not attempted and the patient did not perform the activity before the current illness, exacerbation or injury. 10-Not Attempted due to Environmental Limitations-(lack of equipment, weather restraints, etc.). 88-Not Attempted due to Medical Conditions or Safety Concerns. Sit to Stand (QC): 5 Chair/Mfk-hd-Poubu Xfer(QC): 5 Weight Bearing Right Lower Extremity: Right Full Weight Bearing Left Lower Extremity: Left Full Weight Bearing Gait Training Does the Patient Walk?: Yes Distance: 300 feet Walk 10 feet (QC): 5 Walk 50 ft with 2 Turns(QC): 5 Walk 150 ft (QC): 5 Gait Persons Needed: 1 Gait Assistive Device: FWW Assessment Current Status: Good Progress Patient tolerated treatment well. Demonstrates improved gait distance. Patient ambulates 300 feet with FWW, with setup and verbal cues for posture and conservation of energy. Patient requires 1 standing rest break at midpoint of gait. Patient in chair post treatment with all needs met, nursing notified, call light in hand, and in the room. PT Geriatric Physician Goals Chcf Goals PT Geriatric Physician Goals Time Frame: Mar 29, 2022 Roll Left & Right (QC): 6 Sit to Lying (QC): 6 Lying-Sitting on Side/Bed(QC): 6 Sit to Stand (QC): 6 Chair/Ygs-gf-Abjyh Xfer(QC): 6 Toilet Transfer (QC): 6 Does the Patient Walk: Yes Walk 10 feet (QC): 6 Walk 50ft with 2 Turns (QC): 6 Walk 150 ft (QC): 6 PT Plan Treatment/Plan Treatment Plan: Continue Plan of Care Treatment Plan: Bed Mobility, Education, Functional Activity Pauline, Functional Strength, Gait, Safety, Therapeutic Exercise, Transfers Treatment Duration: Mar 29, 2022 Frequency: 6 times per week Estimated Hrs Per Day: .25 hour per day Patient and/or Family Agrees t: Yes Safety Risks/Education Patient Education: Gait Training Time Time In: 1023 Time Out: 1035 DATE: Mar 24, 2022 Total Billed Treatment Time: 12 Total Billed Treatment Visit, Gait SELVIN MUKHERJEE PT Mar 24, 2022 10:43
[2022-03-24] MEDS ORDERED: IRON SUCROSE 200 MG/10 ML (VENOFER) VIAL IV NR (11:00)
--- NOTE | 2022-03-24 11:31 | Progress Note - Surgery ---
WAYLON CARTER 03/24/22 1131: Subjective Date Seen by a Provider: Mar 24, 2022 Time Seen by a Provider: 09:25 Subjective/Events-last exam Patient resting comfortably in chair when I came in to see her. States that she tolerated her diet progression yesterday. Has not had a bowel movement since eating foods, but no abdominal discomfort. Patient states that she feels like she has more energy today than yesterday. Still gets a little dizzy after having stood up for awhile. Patient would like to go home today if possible. Review of Systems General: No Chills, No Night Sweats HEENT: No Head Aches, No Visual Changes Pulmonary: No Dyspnea, No Cough Cardiovascular: No: Chest Pain, Palpitations Gastrointestinal: No: Nausea, Vomiting, Abdominal Pain Genitourinary: No Dysuria, No Frequency Neurological: No: Weakness, Numbness Objective Exam Vital Signs Date Time Temp Pulse Resp B/P (MAP) Pulse Ox O2 Delivery O2 Flow Rate FiO2 03/24/22 09:09 35.5 03/24/22 08:38 35.5 03/24/22 08:32 97 Room Air 03/24/22 07:23 35.5 109 16 132/84 (100) 97 03/24/22 03:36 36.6 81 18 128/72 (90) 98 Room Air 03/23/22 23:56 36.8 74 18 133/69 (90) 96 Room Air 03/23/22 20:52 Room Air 03/23/22 19:37 Room Air 03/23/22 19:30 37.1 89 19 152/78 (102) 96 Room Air 03/23/22 19:29 37.1 89 19 152/78 (102) 96 Room Air 03/23/22 16:00 36.9 71 20 119/76 (90) 95 Room Air 03/23/22 11:49 36.4 81 20 124/76 (92) 94 Room Air I & O 03/24/22 07:00 Intake Total 1620 ml Balance 1620 ml Capillary Refill : Less Than 3 Seconds General Appearance: No Apparent Distress, WD/WN HEENT: PERRL/EOMI Neck: Non Tender, Supple Respiratory: Lungs Clear, Normal Breath Sounds, No Accessory Muscle Use, No Respiratory Distress Cardiovascular: No Murmur, Irregularly Irregular Peripheral Pulses: 2+ Radial Pulses (R), 2+ Radial Pulses (L) Gastrointestinal: non tender, soft Extremity: Non Tender, No Calf Tenderness, Pedal Edema (trace bilateral ) Neurologic/Psychiatric: Alert, Oriented x3, Normal Mood/Affect Skin: Normal Color, Warm/Dry Results Lab Laboratory Tests 03/24/22 06:00: White Blood Count 7.8, Red Blood Count 3.40L, Hemoglobin 8.2L, Hematocrit 27L, Mean Corpuscular Volume 79L, Mean Corpuscular Hemoglobin 24L, Mean Corpuscular Hemoglobin Concent 31L, Red Cell Distribution Width 18.3H, Platelet Count 324, Mean Platelet Volume 9.9, Immature Granulocyte % (Auto) 1, Neutrophils (%) (Auto) 57, Lymphocytes (%) (Auto) 29, Monocytes (%) (Auto) 10, Eosinophils (%) (Auto) 2, Basophils (%) (Auto) 1, Neutrophils # (Auto) 4.4, Lymphocytes # (Auto) 2.3, Monocytes # (Auto) 0.8, Eosinophils # (Auto) 0.2, Basophils # (Auto) 0.0, Immature Granulocyte # (Auto) 0.1, Sodium Level 138, Potassium Level 3.8, Chloride Level 107, Carbon Dioxide Level 20L, Anion Gap 11, Blood Urea Nitrogen 15, Creatinine 0.97, Estimat Glomerular Filtration Rate 57, BUN/Creatinine Ratio 15, Glucose Level 91, Calcium Level 8.9, Corrected Calcium 9.5, Total Bilirubin 0.3, Aspartate Amino Transf (AST/SGOT) 34, Alanine Aminotransferase (ALT/SGPT) 26, Alkaline Phosphatase 78, Total Protein 6.6, Albumin 3.3 Microbiology 03/21/22 MRSA Screen - Final, Complete MRSA not isolated 03/21/22 Blood Culture - Preliminary, Resulted No growth Assessment/Plan Assessment/Plan Assessment/Plan Acute blood loss anemia - stable, symptomatic, improving Atrial Fibrillation Orthostasis Plan Track and Trend Hgb - transfuse as needed Hbg <8.0 per Cardiology Hgb 8.2 today, 8.1 yesterday Patient reports improvement since iron infusion Negative for acute upper GI bleed per endoscopy Patient tolerated progression of diet. Patient is okay to d/c from surgery standpoint. Patient may experience some bleeding upon restarting eliquis, may want to restart before D/C. Clinical Quality Measures DVT/VTE Risk/Contraindication: Contraindications-Pharm: Other *list below* Other: TOBI EDDAARACELIS Mtz DO 03/24/22 1249: Subjective Time Seen by a Provider: 11:41 Subjective/Events-last exam Pt seen and examined, states she is feeling better today and ready to go home. Review of Systems General: No Chills, No Night Sweats Pulmonary: No Dyspnea, No Cough Cardiovascular: No: Chest Pain, Palpitations Gastrointestinal: No: Nausea, Vomiting, Abdominal Pain Genitourinary: No Dysuria, No Frequency Objective Exam General Appearance: No Apparent Distress, Obese HEENT: PERRL/EOMI Respiratory: Lungs Clear, Normal Breath Sounds, No Accessory Muscle Use, No Respiratory Distress Cardiovascular: No Murmur, Irregularly Irregular Gastrointestinal: non tender, soft Extremity: Non Tender, No Calf Tenderness, Pedal Edema (trace bilateral ) Neurologic/Psychiatric: Alert, Oriented x3, Normal Mood/Affect Assessment/Plan Assessment/Plan Assessment/Plan Acute blood loss anemia - stable, symptomatic, improving Atrial Fibrillation Orthostasis Plan Track and Trend Hgb - transfuse as needed Hbg <8.0 per Cardiology Hgb 8.2 today, 8.1 yesterday Patient reports improvement since iron infusion Negative for acute upper GI bleed per endoscopy Patient tolerated progression of diet. Patient is okay to d/c from surgery standpoint. Patient may experience some bleeding upon restarting eliquis. Plan to hold eliquis and get colonoscopy on Sunday. Supervisory-Addendum Brief Verification & Attestation Participated in pt care: history, MDM, physical Personally performed: exam, history, MDM, supervision of care Care discussed with: Medical Student Procedures: n/a Verification and Attestation of Medical Student E/M Service A medical student performed and documented this service. I then reviewed and verified all information documented by the medical student and made modifications to such information, when appropriate. I personally performed a physical exam, medical decision making and then discussed any differences between the notes and made revisions as necessary to create one note. Aracelis Burden , 03/24/22 , 12:49 WAYLON CARTER Mar 24, 2022 11:31 ARACELIS BURDEN DO Mar 24, 2022 12:49
--- NOTE | 2022-03-24 11:43 | Occupational Ther Daily Note ---
OT Current Status-Daily Note Subjective Pt up in recliner, agreeable to OT Tx. Pt and are hopeful pt will be able to discharge today. Both decline concerns with her ability to complete ADLS at discharge. Mental Status/Objective Patient Orientation: Normal For Age ADL-Treatment Therapy Code Descriptions/Definitions Functional [place] Measure: 0=Not Assessed/NA 4=Minimal Assistance 1=Total Assistance 5=Supervision or Setup 2=Maximal Assistance 6=Modified [place] 3=Moderate Assistance 7=Complete IndependenceSCALE: Activities may be completed with or without assistive devices. 5-Fuawttecxy-wuezwkn completes the activity by him/herself with no assistance from a helper. 5-Set-up or Clean-up Assistance-helper sets up or cleans up; patient completes activity. [place] assists only prior to or following the activity. 4-Supervision or Touching Assistance-helper provides verbal cues and/or touching/steadying and/or contact guard assistance as patient completes activity. Assistance may be provided throughout the activity or intermittently. 3-Partial/Moderate Assistance-helper does LESS THAN HALF the effort. M[place]ora lifts, holds or supports trunk or limbs, but provides less than half the effort. 2-Substantial/Maximal Assistance-helper does MORE THAN HALF the effort. [place] lifts or holds trunk or limbs and provides more than half the effort. 5-Lxnaettau-xcjhxj does ALL the effort. Patient does none of the effort to complete the activity. Or, the assistance of 2 or more helpers is required for the patient to complete the activity. If activity was not attempted, code reason: 7-Patient Refused. 9-Not Applicable-not attempted and the patient did not perform the activity before the current illness, exacerbation or injury. 10-Not Attempted due to Environmental Limitations-(lack of equipment, weather restraints, etc.). 88-Not Attempted due to Medical Conditions or Safety Concerns. Eating (QC): 6 (Per pt report) Oral Hygiene (QC): 5 (per pt report) Shower/Bathe Self (QC): 7 On/Off Footwear: 6 Other Treatment Pt in recliner, agreeable to OT Tx. Pt states she is hoping to be able to discharge home later today, states no concerns with her ability to complete ADLs at discharge. In order to increase BUE Strength and activity tolerance, pt completed x10 reps each of the following BUE exercises: shoulder flexion, front punch, elbow flexion/extension, finger flexion/extension. Post tx, pt in recliner, call light in reach and all needs met. Education OT Patient Education: Correct positioning, Energy conservation, Exercise program, Modified ADL techniques, Progress toward Goal/Update tx plan, Purpose of tx/functional activities, Rehab process Teaching Recipient: Patient Teaching Methods: Discussion Response to Teaching: Verbalize Understanding OT Farm Equipment Assembler Goals Custodial Goals Time Frame: Apr 07, 2022 Eating (QC): 6 Oral Hygiene (QC): 6 Toileting Hygiene (QC): 6 Shower/Bathe Self (QC): 4 Upper Body Dressing (QC): 5 Lower Body Dressing (QC): 4 On/Off Footwear (QC): 4 Additional Goals: 1-Demonstrate ADL Tasks, 2-Verbalize Understanding, 3-Impro veStrength/Pauline 1=Demonstrate adherence to instructed precautions during ADL tasks. 2=Patient will verbalize/demonstrate understanding of assistive devices/modifications for ADL. 3=Patient will improve strength/tolerance for activity to enable patient to perform ADL's. OT Education/Plan Problem List/Assessment Assessment: Decreased Activ Tolerance, Decreased UE Strength, Impaired I ADL's Discharge Recommendations Plan/Recommendations: Continue POC Treatment Plan/Plan of Care Patient would benefit from OT for education, treatment and training to promote independence in ADL's, mobility, safety and/or upper extremity function for ADL's. Plan of Care: ADL Retraining, Functional Mobility, UE Funct Exercise/Act Treatment Duration: Mar 22, 2022 Frequency: 3 times per week (3-5 times per week) Estimated Hrs Per Day: .25 hour per day Agreement: Yes Rehab Potential: Good Time Start Time: 11:25 Stop Time: 11:37 DATE: Mar 24, 2022 Total Time Billed (hr/min): 12 Billed Treatment Time 1, EX KIKO PANG OT Mar 24, 2022 11:43
[2022-03-24] MEDS ORDERED: CYAN-41 PO (12:07)
[2022-03-24] MEDS ORDERED: APIX5TAB PO (12:07)
[2022-03-24] MEDS ORDERED: AMLO-250 PO (12:07)
[2022-03-24] MEDS ORDERED: IRON100V2 IV (12:07)
[2022-03-24] MEDS ORDERED: PANT40TA52 PO (12:07)
--- NOTE | 2022-03-24 12:08 | Discharge Summary ---
Diagnosis/Chief Complaint Date of Admission Mar 21, 2022 at 11:01 Date of Discharge Discharge Date: Mar 24, 2022 Discharge Diagnosis Assessment: Anemia severe and symptomatic Hypotension now resolved Presumed GI bleed SOB improved Fatigue Afib chronic Diastolic HF Hypothyroidism HTN HLD Hx DVT Plan: HL IV fluids Hold eliquis Appreciate surgery Monitor Hg, transfuse as needed Monitor BP, pressors if hypotensive Start on Protonix Iron infusions Vit B12 Reason Hospital Visit Discharge Summary Discharge Physical Examination Allergies: Coded Allergies: No Known Drug Allergies (Verified , 09/09/07) Vitals & I&Os Vital Signs Date Time Temp Pulse Resp B/P (MAP) Pulse Ox O2 Delivery O2 Flow Rate FiO2 03/24/22 13:18 36.5 83 18 128/83 98 Room Air 0.00 03/21/22 12:28 21 General Appearance: Alert, Oriented X3, Cooperative Respiratory: Clear to Auscultation Cardiovascular: Regular Rate Psych/Mental Status: Mental Status NL Hospital Course Was the Problem List Reviewed?: Yes Lengthy course after admitted from ER after she was assessed to have hypotension and presumed GIB with severe symptomatic anemia requiring 1 unit of blood and Iron infusions. Surgery was consulted along with Cardiology and patient was close monitored in the ICU for 3 days. Patient ultimately returned back to stability and hgb remained stable and she will hold the OAC until scopes are completed then we will restart and she will complete IV iron infusions as outpat ient. Labs (last 24 hrs) Laboratory Tests 03/21/22 09:38: Glucometer 113H 03/21/22 09:54: Iron Level 17L, Vitamin B12 Level 313 03/21/22 09:56: White Blood Count 7.6, Red Blood Count 3.20L, Hemoglobin 7.7L, Hematocrit 26L, Mean Corpuscular Volume 80, Mean Corpuscular Hemoglobin 24L, Mean Corpuscular Hemoglobin Concent 30L, Red Cell Distribution Width 17.9H, Platelet Count 384, Mean Platelet Volume 9.8, Immature Granulocyte % (Auto) 1, Neutrophils (%) (Auto) 54, Lymphocytes (%) (Auto) 33, Monocytes (%) (Auto) 10, Eosinophils (%) (Auto) 2, Basophils (%) (Auto) 1, Neutrophils # (Auto) 4.1, Lymphocytes # (Auto) 2.5, Monocytes # (Auto) 0.8, Eosinophils # (Auto) 0.2, Basophils # (Auto) 0.0, Immature Granulocyte # (Auto) 0.0, Prothrombin Time 15.4H, INR Comment 1.2, Activated Partial Thromboplast Time 30, Sodium Level 138, Potassium Level 4.2, Chloride Level 105, Carbon Dioxide Level 23, Anion Gap 10, Blood Urea Nitrogen 23H, Creatinine 1.09, Estimat Glomerular Filtration Rate 49, BUN/Creatinine Ratio 21, Glucose Level 112H, Lactic Acid Level 1.62, Calcium Level 9.5, Corrected Calcium 9.7, Magnesium Level 2.2, Total Bilirubin 0.4, Aspartate Amino Transf (AST/SGOT) 57H, Alanine Aminotransferase (ALT/SGPT) 39, Alkaline Phosphatase 84, Troponin I < 0.028, B-Type Natriuretic Peptide 88.7, Total Protein 7.3, Albumin 3.7 03/21/22 10:04: Urine Color YELLOW, Urine Clarity CLEAR, Urine pH 6.0, Urine Specific Darling >=1.030, Urine Protein TRACEH, Urine Glucose (UA) NEGATIVE, Urine Ketones NEGATIVE, Urine Nitrite NEGATIVE, Urine Bilirubin 1+H, Urine Urobilinogen 0.2, Urine Leukocyte Esterase NEGATIVE, Urine RBC (Auto) NEGATIVE, Urine RBC NONE, Urine WBC NONE, Urine Squamous Epithelial Cells NONE, Urine Crystals NONE, Urine Bacteria NEGATIVE, Urine Casts NONE, Urine Mucus MODERATEH, Urine Culture Indicated NO 03/21/22 12:25: Influenza Type A (RT-PCR) Not Detected, Influenza Type B (RT-PCR) Not Detected, SARS-CoV-2 RNA (RT-PCR) Not Detected 03/21/22 20:26: Hemoglobin 8.0L, Hematocrit 26L 03/21/22 23:35: Hemoglobin 8.2L, Hematocrit 27L 03/22/22 05:10: Hemoglobin 7.8L, Hematocrit 26L, White Blood Count 7.6, Red Blood Count 3.27L, Mean Corpuscular Volume 79L, Mean Corpuscular Hemoglobin 24L, Mean Corpuscular Hemoglobin Concent 30L, Red Cell Distribution Width 18.3H, Platelet Count 324, Mean Platelet Volume 9.8, Immature Granulocyte % (Auto) 1, Neutrophils (%) (Auto) 52, Lymphocytes (%) (Auto) 34, Monocytes (%) (Auto) 12, Eosinophils (%) (Auto) 2, Basophils (%) (Auto) 1, Neutrophils # (Auto) 3.9, Lymphocytes # (Auto) 2.6, Monocytes # (Auto) 0.9, Eosinophils # (Auto) 0.2, Basophils # (Auto) 0.0, Immature Granulocyte # (Auto) 0.0, Sodium Level 141, Potassium Level 4.1, Chloride Level 109H, Carbon Dioxide Level 20L, Anion Gap 12, Blood Urea Nitrogen 18, Creatinine 0.93, Estimat Glomerular Filtration Rate 60, BUN/Creatinine Ratio 19, Glucose Level 90, Calcium Level 8.6, Corrected Calcium 9.2, Phosphorus Level 3.9, Magnesium Level 2.1, Total Bilirubin 0.4, Aspartate Amino Transf (AST/SGOT) 54H, Alanine Aminotransferase (ALT/SGPT) 33, Alkaline Phosphatase 80, Total Protein 6.2L, Albumin 3.2 03/23/22 05:24: White Blood Count 7.9, Red Blood Count 3.36L, Hemoglobin 8.1L, Hematocrit 26L, Mean Corpuscular Volume 78L, Mean Corpuscular Hemoglobin 24L, Mean Corpuscular Hemoglobin Concent 31L, Red Cell Distribution Width 18.3H, Platelet Count 332, Mean Platelet Volume 9.9, Immature Granulocyte % (Auto) 1, Neutrophils (%) (Auto) 58, Lymphocytes (%) (Auto) 28, Monocytes (%) (Auto) 11, Eosinophils (%) (Auto) 3, Basophils (%) (Auto) 1, Neutrophils # (Auto) 4.6, Lymphocytes # (Auto) 2.2, Monocytes # (Auto) 0.8, Eosinophils # (Auto) 0.2, Basophils # (Auto) 0.0, Immature Granulocyte # (Auto) 0.0, Sodium Level 139, Potassium Level 3.8, Chloride Level 107, Carbon Dioxide Level 22, Anion Gap 10, Blood Urea Nitrogen 16, Creatinine 0.95, Estimat Glomerular Filtration Rate 58, BUN/Creatinine Ratio 17, Glucose Level 97, Calcium Level 9.0, Corrected Calcium 9.6, Total Bilirubin 0.4, Aspartate Amino Transf (AST/SGOT) 39H, Alanine Aminotransferase (ALT/SGPT) 33, Alkaline Phosphatase 79, Total Protein 6.4, Albumin 3.3 03/24/22 06:00: White Blood Count 7.8, Red Blood Count 3.40L, Hemoglobin 8.2L, Hematocrit 27L, Mean Corpuscular Volume 79L, Mean Corpuscular Hemoglobin 24L, Mean Corpuscular Hemoglobin Concent 31L, Red Cell Distribution Width 18.3H, Platelet Count 324, Mean Platelet Volume 9.9, Immature Granulocyte % (Auto) 1, Neutrophils (%) (Auto) 57, Lymphocytes (%) (Auto) 29, Monocytes (%) (Auto) 10, Eosinophils (%) (Auto) 2, Basophils (%) (Auto) 1, Neutrophils # (Auto) 4.4, Lymphocytes # (Auto) 2.3, Monocytes # (Auto) 0.8, Eosinophils # (Auto) 0.2, Basophils # (Auto) 0.0, Immature Granulocyte # (Auto) 0.1, Sodium Level 138, Potassium Level 3.8, Chloride Level 107, Carbon Dioxide Level 20L, Anion Gap 11, Blood Urea Nitrogen 15, Creatinine 0.97, Estimat Glomerular Filtration Rate 57, BUN/Creatinine Ratio 15, Glucose Level 91, Calcium Level 8.9, Corrected Calcium 9.5, Total Bilirubin 0.3, Aspartate Amino Transf (AST/SGOT) 34, Alanine Aminotransferase (ALT/SGPT) 26, Alkaline Phosphatase 78, Total Protein 6.6, Albumin 3.3 Microbiology 03/21/22 MRSA Screen - Final, Complete MRSA not isolated 03/21/22 Blood Culture - Preliminary, Resulted No growth Pending Labs Microbiology Date/Time Source Procedure Growth Status 03/21/22 12:25 Nasal MRSA Screen - Final MRSA not isolated Complete 03/21/22 10:16 Peripheral Rt Hand Blood Culture - Preliminary No growth Resulted 03/21/22 09:56 Peripheral Arm, Left Blood Culture - Preliminary No growth Resulted Laboratory Tests 03/21/22 09:38: Glucometer 113 03/21/22 09:54: Iron Level 17, Vitamin B12 Level 313 03/21/22 09:56: White Blood Count 7.6, Red Blood Count 3.20, Hemoglobin 7.7, Hematocrit 26, Mean Corpuscular Volume 80, Mean Corpuscular Hemoglobin 24, Mean Corpuscular Hemoglobin Concent 30, Red Cell Distribution Width 17.9, Platelet Count 384, Mean Platelet Volume 9.8, Immature Granulocyte % (Auto) 1, Neutrophils (%) (Auto) 54, Lymphocytes (%) (Auto) 33, Monocytes (%) (Auto) 10, Eosinophils (%) (Auto) 2, Basophils (%) (Auto) 1, Neutrophils # (Auto) 4.1, Lymphocytes # (Auto) 2.5, Monocytes # (Auto) 0.8, Eosinophils # (Auto) 0.2, Basophils # (Auto) 0.0, Immature Granulocyte # (Auto) 0.0, Prothrombin Time 15.4, INR Comment 1.2, Activated Partial Thromboplast Time 30, Sodium Level 138, Potassium Level 4.2, Chloride Level 105, Carbon Dioxide Level 23, Anion Gap 10, Blood Urea Nitrogen 23, Creatinine 1.09, Estimat Glomerular Filtration Rate 49, BUN/Creatinine Ratio 21, Glucose Level 112, Lactic Acid Level 1.62, Calcium Level 9.5, Corrected Calcium 9.7, Magnesium Level 2.2, Total Bilirubin 0.4, Aspartate Amino Transf (AST/SGOT) 57, Alanine Aminotransferase (ALT/SGPT) 39, Alkaline Phosphatase 84, Troponin I < 0.028, B-Type Natriuretic Peptide 88.7, Total Protein 7.3, Albumin 3.7 03/21/22 10:04: Urine Color YELLOW, Urine Clarity CLEAR, Urine pH 6.0, Urine Specific Darling >=1.030, Urine Protein TRACE, Urine Glucose (UA) NEGATIVE, Urine Ketones NEGATIVE, Urine Nitrite NEGATIVE, Urine Bilirubin 1+, Urine Urobilinogen 0.2, Urine Leukocyte Esterase NEGATIVE, Urine RBC (Auto) NEGATIVE, Urine RBC NONE, Urine WBC NONE, Urine Squamous Epithelial Cells NONE, Urine Crystals NONE, Urine Bacteria NEGATIVE, Urine Casts NONE, Urine Mucus MODERATE, Urine Culture Indicated NO 03/21/22 12:25: Influenza Type A (RT-PCR) Not Detected, Influenza Type B (RT-PCR) Not Detected, SARS-CoV-2 RNA (RT-PCR) Not Detected 03/21/22 20:26: Hemoglobin 8.0, Hematocrit 26 03/21/22 23:35: Hemoglobin 8.2, Hematocrit 27 03/22/22 05:10: Hemoglobin 7.8, Hematocrit 26, White Blood Count 7.6, Red Blood Count 3.27, Mean Corpuscular Volume 79, Mean Corpuscular Hemoglobin 24, Mean Corpuscular Hemoglobin Concent 30, Red Cell Distribution Width 18.3, Platelet Count 324, Mean Platelet Volume 9.8, Immature Granulocyte % (Auto) 1, Neutrophils (%) (Auto) 52, Lymphocytes (%) (Auto) 34, Monocytes (%) (Auto) 12, Eosinophils (%) (Auto) 2, Basophils (%) (Auto) 1, Neutrophils # (Auto) 3.9, Lymphocytes # (Auto) 2.6, Monocytes # (Auto) 0.9, Eosinophils # (Auto) 0.2, Basophils # (Auto) 0.0, Immature Granulocyte # (Auto) 0.0, Sodium Level 141, Potassium Level 4.1, Chloride Level 109, Carbon Dioxide Level 20, Anion Gap 12, Blood Urea Nitrogen 18, Creatinine 0.93, Estimat Glomerular Filtration Rate 60, BUN/Creatinine Ratio 19, Glucose Level 90, Calcium Level 8.6, Corrected Calcium 9.2, Phosphorus Level 3.9, Magnesium Level 2.1, Total Bilirubin 0.4, Aspartate Amino Transf (AST/SGOT) 54, Alanine Aminotransferase (ALT/SGPT) 33, Alkaline Phosphatase 80, Total Protein 6.2, Albumin 3.2 03/23/22 05:24: White Blood Count 7.9, Red Blood Count 3.36, Hemoglobin 8.1, Hematocrit 26, Mean Corpuscular Volume 78, Mean Corpuscular Hemoglobin 24, Mean Corpuscular Hemoglobin Concent 31, Red Cell Distribution Width 18.3, Platelet Count 332, Mean Platelet Volume 9.9, Immature Granulocyte % (Auto) 1, Neutrophils (%) (Auto) 58, Lymphocytes (%) (Auto) 28, Monocytes (%) (Auto) 11, Eosinophils (%) ( Auto) 3, Basophils (%) (Auto) 1, Neutrophils # (Auto) 4.6, Lymphocytes # (Auto) 2.2, Monocytes # (Auto) 0.8, Eosinophils # (Auto) 0.2, Basophils # (Auto) 0.0, Immature Granulocyte # (Auto) 0.0, Sodium Level 139, Potassium Level 3.8, Chloride Level 107, Carbon Dioxide Level 22, Anion Gap 10, Blood Urea Nitrogen 16, Creatinine 0.95, Estimat Glomerular Filtration Rate 58, BUN/Creatinine Ratio 17, Glucose Level 97, Calcium Level 9.0, Corrected Calcium 9.6, Total Bilirubin 0.4, Aspartate Amino Transf (AST/SGOT) 39, Alanine Aminotransferase (ALT/SGPT) 33, Alkaline Phosphatase 79, Total Protein 6.4, Albumin 3.3 03/24/22 06:00: White Blood Count 7.8, Red Blood Count 3.40, Hemoglobin 8.2, Hematocrit 27, Mean Corpuscular Volume 79, Mean Corpuscular Hemoglobin 24, Mean Corpuscular Hemoglobin Concent 31, Red Cell Distribution Width 18.3, Platelet Count 324, Mean Platelet Volume 9.9, Immature Granulocyte % (Auto) 1, Neutrophils (%) (Auto) 57, Lymphocytes (%) (Auto) 29, Monocytes (%) (Auto) 10, Eosinophils (%) (Auto) 2, Basophils (%) (Auto) 1, Neutrophils # (Auto) 4.4, Lymphocytes # (Auto) 2.3, Monocytes # (Auto) 0.8, Eosinophils # (Auto) 0.2, Basophils # (Auto) 0.0, Immature Granulocyte # (Auto) 0.1, Sodium Level 138, Potassium Level 3.8, Chloride Level 107, Carbon Dioxide Level 20, Anion Gap 11, Blood Urea Nitrogen 15, Creatinine 0.97, Estimat Glomerular Filtration Rate 57, BUN/Creatinine Ratio 15, Glucose Level 91, Calcium Level 8.9, Corrected Calcium 9.5, Total Bilirubin 0.3, Aspartate Amino Transf (AST/SGOT) 34, Alanine Aminotransferase (ALT/SGPT) 26, Alkaline Phosphatase 78, Total Protein 6.6, Albumin 3.3 Discharge Home Medications: Active Scripts Active Vitamin B-12 (Cyanocobalamin (Vitamin B-12)) 1,000 Mcg Tablet 1,000 Mcg PO DAILY@0700 Pantoprazole Sodium 40 Mg Tablet.dr 40 Mg PO DAILY@0700 Venofer (Iron Sucrose Complex) 200 Mg Iron/10 Ml Vial 200 Mg IV Q48H Give 200mg IV on 03/27/22 then Q 48 hours for 2 more doses via daysurg Eliquis (Apixaban) 5 Mg Tablet 5 Mg PO BID 14 Days Hold until approved by Dr Benitez after scopes completed Amlodipine Besylate 5 Mg Tablet 5 Mg PO DAILY 7 Days hold until approved by Dr Benitez Reported Benazepril HCl 40 Mg Tab 40 Mg PO DAILY Preservision Areds Softgel (Vit A/C/E/Zinc/Co) 14,320-226 Capsule 1 Cap PO DAILY Diltiazem 24Hr ER (Diltiazem HCl) 120 Mg Cap.er.24h 120 Mg PO DAILY Vitamin D3 (Cholecalciferol (Vitamin D3)) 25 Mcg Capsule 25 Mcg PO DAILY Coq-10 (Ubidecarenone) 100 Mg Capsule 100 Mg PO DAILY Levothyroxine Sodium 75 Mcg Tablet 75 Mcg PO DAILY Allopurinol 100 Mg Tablet 100 Mg PO DAILY Furosemide 20 Mg Tablet 20 Mg PO DAILY Potassium Chloride 10 Meq Capsule.er 10 Meq PO DAILY Instructions to patient/family Please see electronic discharge instructions given to patient. Clinical Quality Measures DVT/VTE Risk/Contraindication: Contraindications-Pharm: Other *list below* Other: VIOLA ADEN DO Mar 24, 2022 12:08
[2022-03-24 12:18] VITALS: BP 128/83
--- NOTE | 2022-03-24 13:10 | Progress Note - Cardiology ---
Cardiology SOAP Progress Note Subjective: No shortness of breath No cp or palp or syncope Notes malaise and weakness No n/v/d No swelling Objective: I&O/Vital Signs 03/24/22 03/24/22 03/24/22 03/24/22 03:36 07:23 08:32 08:38 Temp 36.6 35.5 35.5 Pulse 81 109 Resp 18 16 B/P (MAP) 128/72 (90) 132/84 (100) Pulse Ox 98 97 97 O2 Delivery Room Air Room Air 03/24/22 03/24/22 09:09 12:18 Temp 35.5 36.5 Pulse 83 Resp 18 B/P (MAP) 128/83 (98) Pulse Ox 98 O2 Delivery Room Air 03/24/22 00:00 Intake Total 1520 ml Balance 1520 ml Weight (Pounds): 235 Weight (Ounces): 2.0 Weight (Calculated Kilograms): 106.662575 Constitutional: AAO x 3, well-developed, well-nourished Respiratory: No accessory muscle use, No respiratory distress; chest expansion is symmetric, chest is bilaterally symmetric, lungs clear to auscultation Cardiovascular: irregularly irregular; No JVD; S1 and S2 Gastrointestional: No tender; soft, round; No distended, No guarding; audible bowel sounds Extremities: no lower extremity edema bilateral Neurologic/Psychiatric: other (moves all limbs equally) Skin: No rash on exposed areas, No ulcerations on exposed areas Results/Procedures: Labs Laboratory Tests 03/24/22 06:00: White Blood Count 7.8, Red Blood Count 3.40L, Hemoglobin 8.2L, Hematocrit 27L, Mean Corpuscular Volume 79L, Mean Corpuscular Hemoglobin 24L, Mean Corpuscular Hemoglobin Concent 31L, Red Cell Distribution Width 18.3H, Platelet Count 324, Mean Platelet Volume 9.9, Immature Granulocyte % (Auto) 1, Neutrophils (%) (Auto) 57, Lymphocytes (%) (Auto) 29, Monocytes (%) (Auto) 10, Eosinophils (%) (Auto) 2, Basophils (%) (Auto) 1, Neutrophils # (Auto) 4.4, Lymphocytes # (Auto) 2.3, Monocytes # (Auto) 0.8, Eosinophils # (Auto) 0.2, Basophils # (Auto) 0.0, Immature Granulocyte # (Auto) 0.1, Sodium Level 138, Potassium Level 3.8, Chloride Level 107, Carbon Dioxide Level 20L, Anion Gap 11, Blood Urea Nitrogen 15, Creatinine 0.97, Estimat Glomerular Filtration Rate 57, BUN/Creatinine Ratio 15, Glucose Level 91, Calcium Level 8.9, Corrected Calcium 9.5, Total Bilirubin 0.3, Aspartate Amino Transf (AST/SGOT) 34, Alanine Aminotransferase (ALT/SGPT) 26, Alkaline Phosphatase 78, Total Protein 6.6, Albumin 3.3 Microbiology 03/21/22 MRSA Screen - Final, Complete MRSA not isolated 03/21/22 Blood Culture - Preliminary, Resulted No growth Laboratory Tests 03/23/22 05:24 03/24/22 06:00 A/P: Assessment: Hypotension - likely d/t vol depletion d/t anemia - resolved Anemia - undetermined etiology - management per medical/surgical services - s/p EGD by Dr. Blake on 03/22/22 - reported to be normal H/O Syncope on 12/17/17 - probably vasovagal in a hot shower. -ILR implanted 12/25/17. -ILR transmission of 06-01-2018 showed a 4 sec pause - BB dc'd at 06-03-18 appt; no significant pauses since (some false positive pauses due to undersensing are reported by the device) - ILR [employer] in July 2021 CAD: - Mild to mod CAD on card cath of October 2017 that was done after MPI of October 23, 2017 was indicative of a small to mod amt of basal anterior ischemia; LVEF 60% - Cardiac cath of 09-17-[address] Hunt showed mild CAD. Normal LVEDP - Echocardiogram of October 25, 2017 showed concentric LVH. LVEF 60-65%. LA mod to severely dilated. Mild to mod regurg. Trivial aortic regurg. Mod TR. PASP 25-30 mmHg PA Fib - of unknown age, first diagnosed on a preop ECG at the [facility] on 10/03/17. NSR on ECG of 01/03/18 - OAC with Eliquis - currently being held Bilateral lower limb discomfort - nonvascular (segmental pressures of Apr 2019 were normal) Chronic back pain - managed by PCP Exertional shortness of breath - chronic, unchanged Chronic joint pain - manged by PCP Obesity - with BMI approx 38 Hypothyroidism - treated with thyroid replacement Hyperlipidemia - but intolerance to statins (h/o liver enz elevation) Chronic bilat leg swelling - likely related to venous insuff Plan: Anemia - undetermined etiology- stable- managed by Dr Benitez PAF - currently a-fib with controlled rate - OAC with Eliquis - advise resumption of OAC for stroke prophylaxis as soon as possible, when ok with Surgical/Medical services - Continue Cardizem CD - Dr Benitez has not allowed resumption of anticoag at this time because Ms Noble is due ot undergo colonoscopy on SARAH AMARAL MD FACP FACC CCDS Mar 24, 2022 13:10
[2022-03-24 13:18] VITALS: BP 128/83
== END 2022-03-24 13:15 | disposition home or self-care (01) | DRG 812 ==
LOC: EDUNIT# 09:24 → ER 09:26 → ICU 11:01 → 4TH 03-23 03:00
PROVIDERS: ADMIT Internal Medicine; ATTEND Internal Medicine
PROC: 0DJ08ZZ Inspection of Upper Intestinal Tract, Via Natural or Artificial Opening Endoscopic (ICD-10-PCS; principal; 2022-03-22 09:16)
DX: D62 Acute posthemorrhagic anemia (principal); I50.32 Chronic diastolic (congestive) heart failure; I11.0 Hypertensive heart disease with heart failure; E86.9 Volume depletion, unspecified; Z79.01 Long term (current) use of anticoagulants; E03.9 Hypothyroidism, unspecified; E78.00 Pure hypercholesterolemia, unspecified; Z86.718 Personal history of other venous thrombosis and embolism; G89.29 Other chronic pain; I95.9 Hypotension, unspecified; M54.9 Dorsalgia, unspecified; Z20.822 Contact with and (suspected) exposure to COVID-19; R53.83 Other fatigue; K21.9 Gastro-esophageal reflux disease without esophagitis; M19.90 Unspecified osteoarthritis, unspecified site; I25.10 Atherosclerotic heart disease of native coronary artery without angina pectoris; G62.9 Polyneuropathy, unspecified; M79.89 Other specified soft tissue disorders; E66.9 Obesity, unspecified; Z68.38 Body mass index [BMI] 38.0-38.9, adult; I48.0 Paroxysmal atrial fibrillation; I87.2 Venous insufficiency (chronic) (peripheral)
CPT/HCPCS: 36415; 51701; 71045; 80053; 81000; 82607; 82947; 83540; 83605; 83735; 83880; 84100; 84484; 85014; 85018; 85025; 85610; 85730; 86850; 86900; 86901; 86920; 87040; 87081; 87636; 93005; 93306; 94760

== ENCOUNTER 2022-03-28 10:40 | Day surgery (SDC) | payer MEDICARE, OTHER ==
[~2022-03-28] VITALS: Ht 162.6 cm; Wt 101.2 kg
[~2022-03-28 10:40] MED LIST changes: +CYAN-41 PO; +DILT-27 PO; +IRON100V2 IV; +PANT40TA52 PO; +VIT1CAPS5 PO
[2022-03-28] MEDS ORDERED: LACTATED RINGERS 1,000 ML IV STA (10:50)
[2022-03-28 10:55] VITALS: BP 147/89
[2022-03-28] MEDS ORDERED: LACTATED RINGERS 1,000 ML IV ONE (11:02)
--- NOTE | 2022-03-28 11:03 | Progress Note-Pre Operative ---
Pre-Operative Progress Note Date of Available H&P: Mar 24, 2022 Date H&P Reviewed: Mar 28, 2022 Time H&P Reviewed: 11:02 History & Physical: H&P Reviewed, Patient Examed, No changes noted Pre-Operative Diagnosis: acute blood loss anemia ARABELLA NICKERSON DO Mar 28, 2022 11:03
[2022-03-28] MEDS ORDERED: PROPOFOL INJECTION 50 ML IV ONE (11:40)
[2022-03-28 12:25] VITALS: BP 118/56
[2022-03-28 12:30] VITALS: BP 129/61
--- NOTE | 2022-03-28 12:30 | Discharge Inst-Simple/Standard ---
Discharge Inst-Standard Patient Instructions/Follow Up Plan of Care/Instructions/FU: Follow up with Dr. Blake in 2 weeks. Activity as Tolerated: Yes Discharge Diet: No Restrictions, Regular Diet, Other Diet (high fiber) ARABELLA BLAKE DO Mar 28, 2022 12:28
[2022-03-28 12:50] VITALS: BP 175/107
[2022-03-28 13:02] VITALS: BP 175/107
--- NOTE | 2022-03-28 13:45 | Anesthesia-General Post-Op ---
MAC Patient Condition Mental Status/LOC: Same as Preop Cardiovascular: Satisfactory Nausea/Vomiting: Absent Respiratory: Satisfactory Pain: Controlled Complications: Absent Post Op Complications Complications None Follow Up Care/Instructions Patient Instructions None needed. Anesthesiology Discharge Order Discharge Order Patient is doing well, no complaints, stable vital signs, no apparent adverse anesthesia problems. No complications reported per nursing. MAO CANAS CRNA Mar 28, 2022 13:45
--- NOTE | 2022-03-28 23:14 | OPERATIVE REPORT ---
DATE OF SERVICE: 03/28/2022 PREOPERATIVE DIAGNOSIS: Acute blood loss anemia. POSTOPERATIVE DIAGNOSES: Ascending colon mass, colon polyps x2. PROCEDURE: Colonoscopy cold biopsy of ascending colon mass with Sophie ink tattoo placement and hot biopsy polypectomy x2. SURGEON: Arabella Blake DO. ANESTHESIA: Per MATERIALS MANAGEMENT CLERK. ESTIMATED BLOOD LOSS: Scant. COMPLICATIONS: None. INDICATIONS: The patient is an 86-year-old female with acute blood loss anemia, on anticoagulation. She understands the risks and benefits of the procedure and wishes to proceed. Consent was on chart. DESCRIPTION OF PROCEDURE: The patient was taken to endoscopy suite, placed in left lateral recumbent position. Timeout was performed. Digital rectal exam was performed. No palpable polyps, masses or ulcerations. Scope was inserted in the rectum and all the way to the cecum with minimal difficulty. Prep was adequate. No polyps, masses or ulcerations visualized within the cecum and ascending colon mass present. Multiple cold biopsies were obtained. Just distal to this area, Sophie ink tattoo was injected in 3 different locations. Scope was then slowly retracted back. Two polyps in the transverse colon, which hot biopsy polypectomies were performed. Scope was then continuously retracted back noting no other pathology in the descending and sigmoid colon. There was some diverticula throughout the sigmoid colon. Once in the rectum, scope was retroflexed, noting no other pathology. Scope was returned to its normal position. Scope withdrawn until completely removed. The patient tolerated the procedure well without complications, taken to recovery room in stable condition. RECOMMENDATIONS: Due to the ascending colon mass, I suspect this to be cancer. We will get a CT of the chest, abdomen and pelvis and a CBC, CMP, and CEA to be scheduled. Regardless, this area will need to be excised, so we will need to talk about doing a right colon resection. We will await further workup and then plan accordingly unless the patient has further bleeding. The patient will continue to hold [employer]. All this was being arranged outpatient. Job ID: [id number] DocumentID: [id number] Dictated Date: 03/28/2022 12:41:01 Manufacturing Job Titles Date: 03/28/2022 23:12:00 Dictated By: ARABELLA BLAKE DO
== END 2022-03-28 13:02 | disposition home or self-care (01) ==
LOC: ENDO 10:40
PROVIDERS: ATTEND Surgery
DX: C18.2 Malignant neoplasm of ascending colon (principal); K63.5 Polyp of colon; K57.30 Diverticulosis of large intestine without perforation or abscess without bleeding; D62 Acute posthemorrhagic anemia; I48.91 Unspecified atrial fibrillation; Z79.01 Long term (current) use of anticoagulants; Z79.899 Other long term (current) drug therapy; I95.9 Hypotension, unspecified; Z85.828 Personal history of other malignant neoplasm of skin; E66.9 Obesity, unspecified; Z68.38 Body mass index [BMI] 38.0-38.9, adult
CPT/HCPCS: 88305; 88341; 88342

== ENCOUNTER → 2022-03-29 | Outpatient (RCR) | payer MEDICARE, OTHER ==
[2022-03-27 12:35] VITALS: BP 101/49
[~2022-03-29] VITALS: Wt 97.7 kg
[~2022-03-29] MED LIST changes: +CEPH500T PO; +IRON SUCROSE 200 MG/10 ML (VENOFER) VIAL IV ONE; +IRON SUCROSE 200 MG/10 ML (VENOFER) VIAL IV SCH
[2022-03-29 11:35] VITALS: BP 132/81
== END | disposition home or self-care (01) ==
LOC: SDC 03-27 12:22
PROVIDERS: ATTEND Internal Medicine
DX: Z01.89 Encounter for other specified special examinations (principal)
CPT/HCPCS: 96365

== ENCOUNTER 2022-03-31 09:07 | Emergency (ER) | payer MEDICARE, OTHER ==
[~2022-03-31] VITALS: Ht 162.6 cm; Wt 104.3 kg
[~2022-03-31 09:07] MED LIST changes: -CEPH500T PO; -IRON SUCROSE 200 MG/10 ML (VENOFER) VIAL IV ONE; -IRON SUCROSE 200 MG/10 ML (VENOFER) VIAL IV SCH
--- NOTE | 2022-03-31 09:59 | ED Lower Extremity ---
General Chief Complaint: Lower Extremity Stated Complaint: PAIN AND SWOLLEN RT LEG Nursing Triage Note: PT TO ROOM 03 VIA W/C WITH C/O RIGHT KNEE PAIN AND SWELLING. PT REPORTS SHE WAS TAKEN OFF HER ELIQUIS AND BP MED X1 WEEK AGO. PT REPORTS SHE IS TO HAVE AN IRON INFUSING TODAY IN OUTPATIENT AT [address] OF ABD AT 1145. Source: patient, family () Exam Limitations: no limitations History of Present Illness Date Seen by Provider: Mar 31, 2022 Time Seen by Provider: 09:45 Initial Comments Patient is an 86-year-old female who presents to the emergency department with a chief complaint of right lower extremity discomfort, swelling. She has had a rather complicated past medical history over the last 10 days with hospitalization for GI bleeding, colonoscopy, polypectomy, and anemia and iron infusions. Patient has been having outpatient iron infusions over the last week on Sunday and Sunday. Scheduled today but has not completed today. She has been off her Eliquis since 03-21-22 for her colonoscopy and work-up. She has a history of chronic A. fib over the last 4 years. She has had prior DVT in the left lower extremity. She denies chest pain or shortness of breath. No abdominal pain, nausea vomiting. No problems with bowel or bladder. She states over the last 24 hours she has noticed that the right leg has been swelling and she has had pain with ambulation. Her noted that the leg has red streaking today. No fever. She is scheduled also today to have what sounds like either an ultrasound or CAT scan of her abdomen. She is a patient o f Dr. Spears. She has also been off of one of her blood pressure medicines over the last week. No wounds to the right lower extremity. No history of trauma. Onset: yesterday Severity: moderate Pain/Injury Location: right leg Modifying Factors: Worse With Movement Allergies and Home Medications Allergies Coded Allergies: No Known Drug Allergies (Verified , 09/09/07) Patient Home Medication List Home Medication List Reviewed: Yes Allopurinol (Allopurinol) 100 Mg Tablet, 100 MG PO DAILY, (Reported) Entered as Reported by: ELANA JOSHI on 11/06/17 0828 Amlodipine Besylate (Amlodipine Besylate) 5 Mg Tablet, 5 MG PO DAILY Prescribed by: VIOLA SPEARS on 03/24/22 1207 Benazepril HCl (Benazepril HCl) 40 Mg Tab, 40 MG PO DAILY, (Reported) Entered as Reported by: FEMI PRINCE on 03/21/22 155 Cephalexin (Cephalexin) 500 Mg Tablet, 500 MG PO TID Prescribed by: MAISHA LUO on 03/31/22 1421 Cholecalciferol (Vitamin D3) (Vitamin D3) 25 Mcg Capsule, 25 MCG PO DAILY, (Reported) Entered as Reported by: FEMI PRINCE on 09/16/20 100 Cyanocobalamin (Vitamin B-12) (Vitamin B-12) 1,000 Mcg Tablet, 1,000 MCG PO DAILY@0700 Prescribed by: VIOLA SPEARS on 03/24/22 120 Diltiazem HCl (Diltiazem 24Hr ER) 120 Mg Cap.er.24h, 120 MG PO DAILY, (Reported) Entered as Reported by: FEMI PRINCE on 03/21/22 155 Furosemide (Furosemide) 20 Mg Tablet, 20 MG PO DAILY, (Reported) Entered as Reported by: ELANA JOSHI on 11/06/17 0828 Iron Sucrose Complex (Venofer) 200 Mg Iron/10 Ml Vial, 200 MG IV Q48H Prescribed by: VIOLA SPEARS on 03/24/22 120 Levothyroxine Sodium (Levothyroxine Sodium) 75 Mcg Tablet, 75 MCG PO DAILY, (Reported) Entered as Reported by: FEMI PRINCE on 09/16/20 100 Pantoprazole Sodium (Pantoprazole Sodium) 40 Mg Tablet.dr, 40 MG PO DAILY@0700 Prescribed by: VIOLA SPEARS on 03/24/22 1207 Potassium Chloride (Potassium Chloride) 10 Meq Capsule.er, 10 MEQ PO DAILY, (Reported) Entered as Reported by: ELANA JOSHI on 11/06/17 0828 Ubidecarenone (Coq-10) 100 Mg Capsule, 100 MG PO DAILY, (Reported) Entered as Reported by: FEMI PRINCE on 09/16/20 100 Vit A/C/E/Zinc/Co (Preservision Areds Softgel) 14,320-226 Capsule, 1 CAP PO DAILY, (Reported) Entered as Reported by: FEMI PRINCE on 03/21/22 155 Discontinued Medications Apixaban (Eliquis) 5 Mg Tablet, 5 MG PO BID Prescribed by: VIOLA SPEARS on 03/24/22 1207 Review of Systems Constitutional: see HPI EENTM: no symptoms reported Respiratory: no symptoms reported Cardiovascular: no symptoms reported Gastrointestinal: no symptoms reported Genitourinary: no symptoms reported Musculoskeletal: other (right leg pain and swelling) Skin: other (redness to the right leg) All Other Systems Reviewed Negative Unless Noted: Yes Past Wwnnyfo-Motxhj-Irqnor Hx Patient Social History Tobacco Use?: No Smoking Status: Never a Smoker Smokeless Tobacco Frequency: Never a User Use of E-Cig and/or Vaping dev: No Use of E-Cig and/or Vaping Gio: Never a User Substance use?: No Alcohol Use?: No Pt feels they are or have been: No Immunizations Up To Date Tetanus Booster (TDap): Unknown First/Initial COVID19 Vaccinat: JUNE 2020 Second COVID19 Vaccination Giacomo: JULY 2020 Third COVID19 Vaccination Date: JUNE 2020 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: [employer] Seasonal Allergies Seasonal Allergies: No Past Medical History Surgeries: Yes (hyst,back surgery,R middle finger cyst removed) Orthopedic Respiratory: No Pneumonia Currently Using CPAP: No Currently Using BIPAP: No Cardiac: Yes Atrial Fibrillation, Chronic Edema/Swelling, Coronary Artery Disease, High Cholesterol, Hypertension Neurological: No Neuropathy 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 Sexually Transmitted Disease: No Genitourinary: Yes Bladder Infection, Renal Failure Gastrointestinal: Yes Gastroesophageal Reflux Musculoskeletal: Yes (LEFT KNEE TORN MEDIAL MENISCUS, Spinal stenosis) Arthritis, Chronic Back Pain Endocrine: No HEENT: Yes Hearing Impairment: Hard of Hearing Cancer: Yes Skin Psychosocial: No Integumentary: No Blood Disorders: No Adverse Reaction/Blood Tranf: No Family Medical History No Pertinent Family Hx Physical Exam Vital Signs Vital Signs - First Documented 03/31/22 03/31/22 09:17 10:50 Temp 36.1 Pulse 107 Resp 17 B/P (MAP) 145/98 (114) Pulse Ox 100 O2 Delivery Room Air Capillary Refill : Less Than 3 Seconds Height, Weight, BMI Height: 5'4.00" Weight: 235lbs. 2.0oz. 106.517644dy; 39.00 BMI Method:Stated General Appearance: WD/WN, no apparent distress HEENT: PERRL/EOMI, pale conjunctivae (R), pale conjunctivae (L) Neck: normal inspection Cardiovascular: irregularly irregular Respiratory: lungs clear, normal breath sounds, no respiratory distress, no accessory muscle use Gastrointestinal: non tender, soft Hips: bilateral hip normal range of motion; right hip swelling, right hip other (erythema from topof right foot extending medially up the left inner thigh) Neurologic/Psychiatric: alert, normal mood/affect, oriented x 3 Skin: normal color, warm/dry Progress/Results/Core Measures Results/Orders Lab Results Laboratory Tests Test 03/31/22 10:55 03/31/22 11:50 Range/Units White Blood Count 8.6 4.3-11.0 10^3/uL Red Blood Count 3.47 L 3.80-5.11 10^6/uL Hemoglobin 8.8 L 11.5-16.0 g/dL Hematocrit 30 L 35-52 % Mean Corpuscular Volume 86 80-99 fL Mean Corpuscular Hemoglobin 25 25-34 pg Mean Corpuscular Hemoglobin Concent 30 L 32-36 g/dL Red Cell Distribution Width 25.3 H 10.0-14.5 % Platelet Count 206 130-400 10^3/uL Mean Platelet Volume 10.4 9.0-12.2 fL Immature Granulocyte % (Auto) 1 % Neutrophils (%) (Auto) 68 42-75 % Lymphocytes (%) (Auto) 21 12-44 % Monocytes (%) (Auto) 9 0-12 % Eosinophils (%) (Auto) 2 0-10 % Basophils (%) (Auto) 0 0-10 % Neutrophils # (Auto) 5.9 1.8-7.8 10^3/uL Lymphocytes # (Auto) 1.8 1.0-4.0 10^3/uL Monocytes # (Auto) 0.7 0.0-1.0 10^3/uL Eosinophils # (Auto) 0.1 0.0-0.3 10^3/uL Basophils # (Auto) 0.0 0.0-0.1 10^3/uL Immature Granulocyte # (Auto) 0.1 0.0-0.1 10^3/uL Prothrombin Time 14.4 12.2-14.7 SEC INR Comment 1.1 0.8-1.4 Activated Partial Thromboplast Time 33 24-35 SEC D-Dimer 3.39 H 0.00-0.49 UG/ML Sodium Level 136 135-145 MMOL/L Potassium Level 4.3 3.6-5.0 MMOL/L Chloride Level 105 98-107 MMOL/L Carbon Dioxide Level 20 L 21-32 MMOL/L Anion Gap 11 5-14 MMOL/L Blood Urea Nitrogen 18 7-18 MG/DL Creatinine 0.84 0.60-1.30 MG/DL Estimat Glomerular Filtration Rate 68 BUN/Creatinine Ratio 21 Glucose Level 102 70-105 MG/DL Lactic Acid Level 1.36 0.50-2.00 MMOL/L Calcium Level 8.5 8.5-10.1 MG/DL Corrected Calcium 9.0 8.5-10.1 MG/DL Total Bilirubin 0.6 0.1-1.0 MG/DL Aspartate Amino Transf (AST/SGOT) 34 5-34 U/L Alanine Aminotransferase (ALT/SGPT) 18 0-55 U/L Alkaline Phosphatase 82 40-136 U/L Total Protein 6.5 6.4-8.2 GM/DL Albumin 3.4 3.2-4.5 GM/DL Urine Color YELLOW Urine Clarity CLOUDY Urine pH 6.0 5-9 Urine Specific Peyton 1.020 1.016-1.022 Urine Protein NEGATIVE NEGATIVE Urine Glucose (UA) NEGATIVE NEGATIVE Urine Ketones NEGATIVE NEGATIVE Urine Nitrite NEGATIVE NEGATIVE Urine Bilirubin NEGATIVE NEGATIVE Urine Urobilinogen 0.2 < = 1.0 MG/DL Urine Leukocyte Esterase NEGATIVE NEGATIVE Urine RBC (Auto) NEGATIVE NEGATIVE Urine RBC NONE /HPF Urine WBC RARE /HPF Urine Squamous Epithelial Cells RARE /HPF Urine Crystals NONE /LPF Urine Bacteria NEGATIVE /HPF Urine Casts NONE /LPF Urine Mucus NEGATIVE /LPF Urine Culture Indicated CULTURE PENDING Micro Results Microbiology 03/31/22 Urine Culture - Final, Complete 3 or more isolates 03/31/22 Blood Culture - Preliminary, Resulted No growth 03/31/22 Blood Culture - Preliminary, Resulted No growth My Orders Orders - MAISHA LUO MD Cbc With Automated Diff (03/31/22 09:53) Comprehensive Metabolic Panel (03/31/22 09:53) Blood Culture (03/31/22 09:53) Urinalysis (03/31/22 09:53) Urine Culture (03/31/22 09:53) Protime With Inr (03/31/22 09:53) Partial Thromboplastin Time (03/31/22 09:53) Chest 1 View, Ap/Pa Only (03/31/22 09:53) Ed Iv/Invasive Line Start (03/31/22 09:53) Ed Iv/Invasive Line Start (03/31/22 09:53) Vital Signs Adult Sepsis Patie Q15M (03/31/22 09:53) O2 (03/31/22 09:53) Remove Rings In Anticipation O (03/31/22 09:53) Lactic Acid Analyzer (03/31/22 09:53) Fibrin Degradation Products (03/31/22 09:53) Us Venous Lower Ext Rt (03/31/22 11:46) Ct Chest/Abdomen/Pelvis W (03/31/22 13:45) Ns Iv 1000 Ml (Sodium Chloride 0.9%) (03/31/22 13:45) Cephalexin Capsule (Keflex Capsule) (03/31/22 13:47) Apixaban Tablet (Eliquis Tablet) (03/31/22 14:00) Iohexol Injection (Omnipaque 350 Mg/Ml 1 (03/31/22 14:15) Received Contrast (Hold Metformin- Contr (03/31/22 14:15) Sodium Chloride Flush (Catheter Flush Sy (03/31/22 14:15) Ns (Ivpb) (Sodium Chloride 0.9% Ivpb Bag (03/31/22 14:15) Medications Given in ED Vital Signs/I&O 03/31/22 03/31/22 03/31/22 09:17 10:50 14:34 Temp 36.1 36.2 Pulse 107 71 Resp 17 16 B/P (MAP) 145/98 (114) 134/76 Pulse Ox 100 99 O2 Delivery Room Air Room Air Room Air Blood Pressure Mean: 114 Progress Progress Note : Time: 13:30 Progress Note Patient seen and evaluated for right LE redness and swelling. Work up today includes, "septic" protocol as well as venous ultrasound of the RLE. Patient labs reviewed and largely unremarkable except for elevated Ddimer. Patient has no current complaints of SOB, pleuritic chest pain or hemoptysis. recently off her blood thinner for work up of colon cancer and impending colon surgery in the next week. SHe is slightly tachycardic without any other symptoms suggestive of PE. RLE has red streaking up the medial leg and thigh. Warmth and tenderness. DVT u/s does demonstrate clot. Discussed case with her PC , Dr Spears, as well as her surgeon Dr Nickerson. Patient is treated with antibiotics for the cellulitic changes and Dr Nickerson indicated he would like me to put the patient back on her Eliquis. All of this was communicated with the patient and her , who is at the bedside. Patient has no clinical or objective findings present to warrant IP admission. She is comfortable with the plan of care. Diagnostic Imaging Diagonstic Imaging: Xray Plain Films/CT/US/NM/MRI: chest Comments [facility] [place], [place] NAME: DAKOTAH MACEDO [facility] REC#: [id number] PT STATUS: REG ER : 1935 PHYSICIAN: MAISHA LUO MD ADMIT DATE: 03/31/22/ER Draft Date of Exam:03/31/22 CHEST 1 VIEW, AP/PA ONLY INDICATION: Right leg swelling, pain and redness. It is compared with study 03/21/2022. FINDINGS: Presumed loop recorder overlying the left chest stable. The heart size stable. No vascular congestion, overt failure, pneumonia, effusion or pneumothorax. IMPRESSION: Stable chest Dictated on workstation # [id number] Dict: 03/31/22 1027 Trans: 03/31/22 1030 [facility] [id number] Interpreted by: JACINTO GALICIA Electronically signed by: Diagonstic Imaging: Ultrasound Comments [facility]. [place], [place] NAME: DAKTOAH MACEDO [facility] REC#: [id number] PT STATUS: REG ER : 1935 PHYSICIAN: MAISHA LUO MD ADMIT DATE: 03/31/22/ER Draft Date of Exam:03/31/22 US VENOUS LOWER EXT RT Procedure: US right lower extremity venous. Technique: Multiple real-time grayscale images were obtained over the right lower extremity in various projections. Additional spectral analysis and color Doppler duplex images were also obtained. Date: March 31, 2022. Indication: 86-year-old female, right lower extremity swelling and pain. Comparison: None. Findings: There is incomplete compressibility of the right common femoral vein and greater saphenous vein. There does appear to be plafond of the right common femoral vein. There is no well demonstrated blood flow in the right greater saphenous vein on image 10. The additional imaged right lower extremity venous vasculature appears patent. Impression: 1. Nonocclusive thrombus in the right common femoral vein and findings concerning for occlusive thrombus in the proximal aspect of the right greater saphenous vein. Dictated on workstation # [id number] Dict: 03/31/22 1324 Trans: 03/31/22 1329 CVB [id number] Interpreted by: SOMMER MURRAY MD Electronically signed by: Departure Impression Primary Impression: Cellulitis of leg Qualified Codes: L03.115 - Cellulitis of right lower limb Additional Impression: DVT (deep venous thrombosis) Qualified Codes: I82.411 - Acute embolism and thrombosis of right femoral vein Disposition: HOME, SELF-CARE Condition: Stable Departure-Patient Inst. Decision time for Depature: 13:49 Referrals: ARABELLA NICKERSON MINDI DO (PCP/Family) Primary Care Physician Patient Instructions: Cellulitis (Skin Infection), Adult ED Add. Discharge Instructions: You can restart your Eliquis today. We have given you a dose here in the emergency department. Dr. Nickerson will give you more instruction on when to stop and start again for surgery. Take the Keflex 500 mg 3 times a day for the next 10 days. It is very important you take all of this medication as scheduled. If you develop chest pain, sudden shortness of breath, severe cough please come back to the emergency room for reevaluation. Please follow-up with Dr. Spears next week and keep your appointment for Sunday with Dr Nickerson. Scripts Cephalexin (Cephalexin) 500 Mg Tablet 500 MG PO TID, #30 TAB Prov: MAISHA LUO MD 03/31/22 Copy Copies To 1: VIOLA SPEARS DO Copies To 2: ARABELLA NICKERSON KATHRYN M MD Mar 31, 2022 09:59
--- NOTE | 2022-03-31 10:30 | Diagnostic Imaging Report ---
INDICATION: Right leg swelling, pain and redness. It is compared with study 03/21/2022. FINDINGS: Presumed loop recorder overlying the left chest stable. The heart size stable. No vascular congestion, overt failure, pneumonia, effusion or pneumothorax. IMPRESSION: Stable chest Dictated by: Dictated on workstation # [id number]
[2022-03-31 11:07] LABS: BASOPHILS % (AUTO) 0 % (0-10); EOSINOPHILS # (AUTO) 0.1 10^3/uL (0.0-0.3); EOSINOPHILS % (AUTO) 2 % (0-10); HEMATOCRIT 30 % (35-52); HEMOGLOBIN 8.8 g/dL (11.5-16.0); LYMPHOCYTES # (AUTO) 1.8 10^3/uL (1.0-4.0); LYMPHOCYTES % (AUTO) 21 % (12-44); MEAN CORPUSCULAR HEMOGLOBIN 25 pg (25-34); MEAN CORPUSCULAR HGB CONC 30 g/dL (32-36); MEAN CORPUSCULAR VOLUME 86 fL (80-99); MEAN PLATELET VOLUME 10.4 fL (9.0-12.2); MONOCYTES # (AUTO) 0.7 10^3/uL (0.0-1.0); MONOCYTES % (AUTO) 9 % (0-12); NEUTROPHILS # (AUTO) 5.9 10^3/uL (1.8-7.8); NEUTROPHILS % (AUTO) 68 % (42-75); PLATELET COUNT 206 10^3/uL (130-400); WHITE BLOOD COUNT 8.6 10^3/uL (4.3-11.0)
[2022-03-31 11:21] LABS: ALBUMIN 3.4 GM/DL (3.2-4.5); POTASSIUM 4.3 MMOL/L (3.6-5.0)
[2022-03-31 11:22] LABS: CALCIUM 8.5 MG/DL (8.5-10.1)
[2022-03-31 11:23] LABS: TOTAL PROTEIN 6.5 GM/DL (6.4-8.2)
[2022-03-31 11:25] LABS: BILIRUBIN,TOTAL 0.6 MG/DL (0.1-1.0)
[2022-03-31 11:27] LABS: CREATININE SERUM 0.84 MG/DL (0.60-1.30)
[2022-03-31 11:31] LABS: FIBRIN DEGRADATION PRODUCTS 3.39 UG/ML (0.00-0.49); INR 1.1 (0.8-1.4); PROTHROMBIN TIME PATIENT 14.4 SEC (12.2-14.7)
[2022-03-31 11:53] LABS: BILIRUBIN,URINE NEGATIVE (NEGATIVE); CLARITY,URINE CLOUDY; COLOR,URINE YELLOW; GLUCOSE, URINE (UA) NEGATIVE (NEGATIVE); KETONES,URINE NEGATIVE (NEGATIVE); LEUKOCYTE ESTERASE ,URINE NEGATIVE (NEGATIVE); NITRITE,URINE NEGATIVE (NEGATIVE); PROTEIN,URINE NEGATIVE (NEGATIVE)
[2022-03-31 12:01] LABS: BACTERIA,URINE NEGATIVE /HPF; SQUAMOUS EPITHELIAL CELL,UR RARE /HPF; WBC,URINE RARE /HPF
--- NOTE | 2022-03-31 13:29 | Diagnostic Imaging Report ---
Procedure: US right lower extremity venous. Technique: Multiple real-time grayscale images were obtained over the right lower extremity in various projections. Additional spectral analysis and color Doppler duplex images were also obtained. Date: March 31, 2022. Indication: 86-year-old female, right lower extremity swelling and pain. Comparison: None. Findings: There is incomplete compressibility of the right common femoral vein and greater saphenous vein. There does appear to be plafond of the right common femoral vein. There is no well demonstrated blood flow in the right greater saphenous vein on image 10. The additional imaged right lower extremity venous vasculature appears patent. Impression: 1. Nonocclusive thrombus in the right common femoral vein and findings concerning for occlusive thrombus in the proximal aspect of the right greater saphenous vein. Dictated by: Dictated on workstation # [id number]
[2022-03-31] MEDS ORDERED: NS IV 1000 ML 1,000 ML IV SCH (13:45)
[2022-03-31] MEDS ORDERED: CEPHALEXIN 250 MG (KEFLEX) CAP PO STA (13:47)
[2022-03-31] MEDS ORDERED: APIXABAN 5 MG (ELIQUIS) TABLET PO ONE (14:00)
[2022-03-31] MEDS ORDERED: IOHEXOL 350 MG/ML 100 ML (OMNIPAQUE 350) VIAL IV ONE (14:15)
[2022-03-31] MEDS ORDERED: NS 100 ML (IVPB) BAG IV ONE (14:15)
[2022-03-31] MEDS ORDERED: CATHETER FLUSH 10 ML SYR IV PRN (14:15)
[2022-03-31] MEDS ORDERED: HOLD METFORMIN - RECEIVED CONTRAST 20 ML VIAL IV SCH (14:15)
[2022-03-31] MEDS ORDERED: CEPH500T PO (14:21)
[2022-03-31 14:34] VITALS: BP 134/76
--- NOTE | 2022-03-31 15:27 | Diagnostic Imaging Report ---
PROCEDURE: CT chest, abdomen and pelvis with contrast. TECHNIQUE: Multiple contiguous axial images were obtained through the chest, abdomen, and pelvis after the administration of intravenous contrast. Auto Exposure Controls were utilized during the CT exam to meet ALARA standards for radiation dose reduction. INDICATION: Colorectal cancer, DVT, cellulitis. COMPARISON: None. CT CHEST: No pneumonia or edema. No pulmonary nodule. No thoracic adenopathy. While this exam was not protocoled for optimal pulmonary arterial evaluation or PE detection, there is hypoenhancement and likely filling defects within right upper lobe segmental branch as well as a right lower lobe segmental branch. In the setting of known DVT, this is felt very suspicious for at least mild degrees of pulmonary arterial emboli. The undivided pulmonary segment of the left and main right pulmonary arteries are confirmed patent. There is no saddle embolus. There is no findings of right heart strain or evidence for elevated right heart pressures. CT ABDOMEN/PELVIS: Liver shows mild hepatic steatosis but no appreciable liver mass. No acute biliary abnormality. There is a left adrenal nodule measuring 1.9 x 1.9 cm, indeterminate. The right adrenal is negative. The pancreas unremarkable. Kidneys are unobstructed. There is some tissue thickening of the right colon, between the cecum and hepatic flexure. History of colon cancer but no description of its location, where this diagnosis was made or whether or not it has been treated. Carcinoma of the mid segment ascending colon; however, based upon this study could not be excluded and if not up-to-date a correlative colonoscopy would be recommended. This is nonobstructing and there is no bowel perforation. The aortoiliac and mesenteric vessels patent and nonaneurysmal. There is a normal appendix. There is no diverticulitis. The uterus absent. There is no adnexal lesion. There are degenerative changes in the lumbar spine with anterolisthesis of L5 on S1 where there is anterior and interbody fusion. No suspicious lytic or sclerotic bony lesion. There is some induration of the left lower quadrant subcutaneous fat which may be from prior surgery. There is no ascites. There is no abdominopelvic, mesenteric or retroperitoneal lymphadenopathy. There is incomplete luminal enhancement of the bilateral common femoral veins more so than on the left than right however this may be merely technical and owing to bolus timing and image acquisitions. Femoral DVTs could not be excluded. The iliac veins and cava are all patent. IMPRESSION: 1. CT chest: No findings of thoracic metastasis or pneumonia. 2. Routine protocol postcontrast enhanced study is severely limited for evaluating PE, there is suspicion for at least right-sided segmental clot within an upper and lower lobe branch without evidence for saddle embolus or elevated right heart strain. 3. CT abdomen/pelvis: There is circumferential tissue thickening and incomplete colonic distention in the upper ascending colon on the right which may be peristalsis or reflect the patient's reported mass. If not performed already, colonoscopy recommended. No obstruction or perforation. Negative liver. No lymphadenopathy. 4. Incomplete luminal enhancement of the bilateral femoral veins which may be technical or reflect DVT. Venous Doppler and ultrasound may be useful as further evaluation. Patency of the iliac and cava confirmed. 5. Indeterminate left adrenal mass, benign versus metastatic. Dictated by: Dictated on workstation # [id number]
== END 2022-03-31 14:34 | disposition home or self-care (01) ==
LOC: EDUNIT# 09:07 → ER 09:09
DX: L03.115 Cellulitis of right lower limb (principal); I82.411 Acute embolism and thrombosis of right femoral vein
CPT/HCPCS: 36415; 71045; 71260; 74177; 80053; 81000; 83605; 85025; 85379; 85610; 85730; 87040; 87088

== ENCOUNTER 2022-03-31 14:58 | Outpatient (RCR) | payer MEDICARE, OTHER ==
[2022-03-31 14:50] VITALS: BP 151/93
[~2022-03-31 14:58] MED LIST changes: +CEPH500T PO
[2022-03-31] MEDS ORDERED: IRON SUCROSE 200 MG/10 ML (VENOFER) VIAL IV SCH (15:45)
== END 2022-03-31 16:20 | disposition home or self-care (01) ==
LOC: SDC 14:58
PROVIDERS: ATTEND Internal Medicine
DX: D64.9 Anemia, unspecified (principal)
CPT/HCPCS: 96365

== ENCOUNTER → 2022-04-06 | Outpatient (CLI) | payer MEDICARE, OTHER ==
[~2022-04-06] VITALS: Ht 162.6 cm; Wt 100.0 kg
--- NOTE | 2022-04-07 10:46 | Anesthesia-General Post-Op ---
General Patient Condition Mental Status/LOC: Same as Preop Cardiovascular: Satisfactory Nausea/Vomiting: Absent Respiratory: Satisfactory Pain: Controlled Complications: Absent Post Op Complications Complications None Follow Up Care/Instructions Patient Instructions None needed. Anesthesia/Patient Condition Patient Condition Patient is doing well, no complaints, stable vital signs, no apparent adverse anesthesia problems. No complications reported per nursing. JERSON PERAZA CRNA Apr 07, 2022 10:46
== END | disposition home or self-care (01) ==
LOC: PREOP 06:21
PROVIDERS: ATTEND Surgery
DX: Z01.818 Encounter for other preprocedural examination (principal); D64.9 Anemia, unspecified; C18.9 Malignant neoplasm of colon, unspecified

== ENCOUNTER 2022-04-07 09:45 | Inpatient (IN) | payer MEDICARE, OTHER ==
[2022-04-07] VITALS (10 sets, daily range): BP systolic 99–141; BP diastolic 59–89
[~2022-04-07] VITALS: Ht 162.6 cm; Wt 100.0 kg
[2022-04-07] MEDS ORDERED: metroNIDAZOLE 500MG/100ML IVPB 100 ML IV ONE (10:00)
[2022-04-07] MEDS ORDERED: ceFAZolin INJECTION 2,000 MG in NS (IVPB) 50 ML IV ONE (10:00)
[2022-04-07] MEDS: LACTATED RINGERS 1,000 ML IV PRN ×2 (10:48→13:14)
--- NOTE | 2022-04-07 11:52 | Progress Note-Pre Operative ---
Pre-Operative Progress Note Date of Available H&P: Apr 05, 2022 Date H&P Reviewed: Apr 07, 2022 Time H&P Reviewed: 11:52 History & Physical: H&P Reviewed, Patient Examed, No changes noted Pre-Operative Diagnosis: right colon cancer ARABELLA NICKERSON DO Apr 07, 2022 11:52
[2022-04-07] MEDS ORDERED: BUP/EPI 0.25% 1:200,000 (MARCAINE) 30 ML VIAL ONE (11:56)
[2022-04-07] MEDS ORDERED: fentaNYL INJ 100 MCG/2 ML AMP ONE ×2 (12:20→14:04)
[2022-04-07] MEDS ORDERED: NEOSTIGMINE 3 MG/3 ML VIAL ONE (12:51)
[2022-04-07] MEDS ORDERED: ROCURONIUM 10 MG/ML 5 ML SYRINGE IV ONE (12:51)
[2022-04-07] MEDS ORDERED: proPOfol 200 MG/20 ML (DIPRIVAN) VIAL IV ONE (12:51)
[2022-04-07] MEDS ORDERED: ONDANSETRON 4 MG/2 ML (SDV) Z0FRAN ONE (12:51)
[2022-04-07] MEDS ORDERED: GLYCOPYRROLATE 0.2 MG/ML (ROBINUL) 2 ML VIAL ONE (12:51)
[2022-04-07] MEDS ORDERED: LIDOCAINE PF 2% 5 ML (XYLOCAINE) VIAL ONE (12:51)
[2022-04-07] MEDS ORDERED: SEVOFLURANE (ULTANE) 15 ML INHAL SOLN ONE (13:39)
--- NOTE | 2022-04-07 13:58 | Anesthesia-General Post-Op ---
General Patient Condition Mental Status/LOC: Same as Preop Cardiovascular: Satisfactory Nausea/Vomiting: Absent Respiratory: Satisfactory Pain: Controlled Complications: Absent Post Op Complications Complications None Follow Up Care/Instructions Patient Instructions None needed. Anesthesia/Patient Condition Patient Condition Patient is doing well, no complaints, stable vital signs, no apparent adverse anesthesia problems. No complications reported per nursing. CATERINA HANEY CRNA Apr 07, 2022 13:58
[2022-04-07] MEDS ORDERED: fentaNYL INJ 100 MCG/2 ML AMP IVP ONE (14:00)
[2022-04-07] MEDS ORDERED: HEParin 1000 UNIT/ML (10ML VIAL) FOR BOLUS IV SCH (14:00)
[2022-04-07] MEDS ORDERED: morphine INJ 4 MG/ML 1 ML (VIAL/SYRINGE) IVP PRN (14:00)
--- NOTE | 2022-04-07 14:03 | Progress Note-Post Operative ---
Post-Operative Progess Note Surgeon (s)/Civil Engineer Helper (s) Surgeon ARABELLA NICKERSON DO Civil Engineer Helper: Dr. Burden to assist in retraction dissection and closure. Pre-Operative Diagnosis right colon cancer Post-Operative Diagnosis same Procedure & Operative Findings Date of Procedure 04/07/22 Procedure Performed/Findings Procedure: Laparoscopic hand assisted extended right colon resection. DESCRIPTION OF PROCEDURE: The patient was taken to the operating suite. She was prepped and draped in sterile fashion. Timeout was performed. A 15 blade scalpel was used to make an incision around the umbilicus for a hand port. Cautery was used to dissect down through the subcutaneous tissues, where the fascia was then opened. Under direct visualization, a 12 mm trocar was placed in the subxiphoid region. A gel hand port was inserted and pneumoperitoneum was achieved. Under direct visualization, a laparoscope 5 mm trocar was placed in the right lower quadrant. There were adhesions of the right colon up to the abdominal wall using spatula cautery. These were then taken down. The colon was then grasped and retracted medially and dissecting along the white line of Toldt, mobilizing the colon also up around the hepatic flexure as well until this became a midline structure, I was able to be being brought out through the midline incision. A linear LAITH stapler was then placed around the distal ileum after it had been dissected around and fired. I also went distally and dissected around the colon with cautery, another GI reload was then fired across it and a LigaSure was then used to divide the mesentery removing the right colon. The ileum and the colon was then brought together in a atic-mk-rork fashion and a linear stapler was used to create a [id number]-wl-[id number] anastomosis. The 3-0 Vicryl was used to put a crotch stitch in as well. The abdomen was then irrigated and suctioned. Hemostasis was achieved. The fascia of the midline was then closed using 1 looped PDS. The abdomen was then reinsufflated and inspected, no other pathology noted. The abdomen was then desufflated. The trocars were removed. The skin was then closed with brissa after it was irrigated and washed. The patient tolerated the procedure well without complications. She was taken to recovery room in stable condition. Anesthesia Type general Estimated Blood Loss Estimated blood loss (mL): minimal Specimens/Packing Specimens Removed right colon NICKERSON,ARABELLA D DO Apr 07, 2022 14:03
[2022-04-07] MEDS: ONDANSETRON 4 MG/2 ML (SDV) Z0FRAN IVP PRN ×3 (14:10→16:24)
[2022-04-07] MEDS: HYDROcodone/APAP 5 MG/325 MG (LORTAB) TAB PO PRN ×2 (16:16→20:09)
[2022-04-07] MEDS: LACTATED RINGERS 1,000 ML IV SCH ×2 (16:18→22:08)
[2022-04-07] MEDS ORDERED: RT-ALBUTEROL SULF 2.5 MG/3 ML PRE-MIX VIAL INH PRN (16:45)
[2022-04-07 17:05] LABS: BASOPHILS % (AUTO) 0 % (0-10); EOSINOPHILS % (AUTO) 0 % (0-10); HEMATOCRIT 33 % (35-52); LYMPHOCYTES # (AUTO) 0.5 10^3/uL (1.0-4.0); LYMPHOCYTES % (AUTO) 4 % (12-44); MEAN CORPUSCULAR HEMOGLOBIN 27 pg (25-34); MEAN CORPUSCULAR HGB CONC 30 g/dL (32-36); MEAN CORPUSCULAR VOLUME 88 fL (80-99); MEAN PLATELET VOLUME 10.2 fL (9.0-12.2); MONOCYTES # (AUTO) 0.2 10^3/uL (0.0-1.0); MONOCYTES % (AUTO) 1 % (0-12); NEUTROPHILS % (AUTO) 94 % (42-75); PLATELET COUNT 257 10^3/uL (130-400); WHITE BLOOD COUNT 12.7 10^3/uL (4.3-11.0)
[2022-04-07 17:22] LABS: PROTHROMBIN TIME PATIENT 13.9 SEC (12.2-14.7)
[2022-04-07 17:27] LABS: BAND NEUTROPHILS 2 %; HYPOCHROMASIA SLIGHT; LYMPHOCYTES % (MANUAL) 3 %; MICROCYTOSIS SLIGHT; MONOCYTES % (MANUAL) 1 %; NEUTROPHILS % (MANUAL) 94 %
[2022-04-07] MEDS: HEParin 1000 UNIT/ML (10ML VIAL) FOR BOLUS IV PRN (17:52)
[2022-04-07] MEDS: HEParin DRIP 25000 UNIT/500ML 500 ML IV SCH (18:09)
[2022-04-07] MEDS: ceFAZolin INJECTION 2,000 MG in NS (IVPB) 50 ML IV SCH (19:57)
[2022-04-07] MEDS: metroNIDAZOLE 500MG/100ML IVPB 100 ML IV SCH (19:57)
[2022-04-08 00:10] VITALS: BP 125/65
[2022-04-08] MEDS: LACTATED RINGERS 1,000 ML IV SCH ×3 (00:15→16:26)
[2022-04-08] MEDS: HYDROcodone/APAP 5 MG/325 MG (LORTAB) TAB PO PRN ×5 (00:15→20:15)
[2022-04-08 03:35] VITALS: BP 124/60
[2022-04-08] MEDS: ceFAZolin INJECTION 2,000 MG in NS (IVPB) 50 ML IV SCH (03:59)
[2022-04-08] MEDS: metroNIDAZOLE 500MG/100ML IVPB 100 ML IV SCH (03:59)
[2022-04-08 06:10] LABS: ALBUMIN 3.1 GM/DL (3.2-4.5); BILIRUBIN,TOTAL 0.3 MG/DL (0.1-1.0); CALCIUM 8.8 MG/DL (8.5-10.1); CREATININE SERUM 0.86 MG/DL (0.60-1.30); MAGNESIUM 1.7 MG/DL (1.6-2.4); POTASSIUM 4.1 MMOL/L (3.6-5.0); TOTAL PROTEIN 6.1 GM/DL (6.4-8.2)
--- NOTE | 2022-04-08 06:33 | Consultation ---
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 Blake. Currently she is doing very well pain is controlled. She is using her incentive spirometer. Heparin drip is maintained due to acute right leg DVT diagnosed 2 weeks ago unable to be on anticoagulation and received Lovenox bridge prior to surgery. She did require IV iron infusions and her hemoglobin stable at 9.2. Source: patient, family, old records Exam Limitations: no limitations Date Seen 04/08/22 Attending Physician Ling Benitez DO PCP Admitting Physician: Louis Blake DO Attending Physician: Louis Blake DO Referring Physician Date of Admission Apr 07, 2022 at 09:45 Home Medications & Allergies Home Medications Reviewed patient Home Medication Reconciliation performed by pharmacy medication reconciliations shampoo technician and/or nursing. Patients Allergies have been reviewed. Allergies Allergies Coded Allergies No Known Drug Allergies (Bvzyphim95/8/22) Past Lktclew-Onvvny-Emilop Hx Past Med/Social Hx: Reviewed Nursing Past Med/Soc Hx, Reviewed and Corrections made Patient Social History Marrital Status: Employed/Student: retired Alcohol Use: Denies Use Drug of Choice: Denies Smoking Status: Never a Smoker Recent Foreign Travel: No Contact w/other who traveled: No Recent Hopitalizations: Yes (03/21 - anemic - blood clot right leg post hospital stay) Immunizations Up To Date Tetanus Booster (TDap): Unknown Date of Pneumonia Vaccine: Jan 11, 2016 Date of Influenza Vaccine: Feb 13, 2022 Seasonal Allergies Seasonal Allergies: No Past Medical History Surgeries: Abdominal, Orthopedic Respiratory: Pneumonia Currently Using CPAP: No Currently Using BIPAP: No Cardiac: Atrial Fibrillation, Chronic Edema/Swelling, Coronary Artery Disease, Deep Vein Thrombosis, High Cholesterol, Hypertension Neurological: Neuropathy Reproductive: No Sexually Transmitted Disease: No Hysterectomy, Menopausal Genitourinary: Bladder Infection Gastrointestinal: Gastroesophageal Reflux Musculoskeletal: Arthritis, Chronic Back Pain Endocrine: Hypothyroidsim Hearing Impairment: Hard of Hearing Cancer: Skin, Colon What Type of Treatment Did You: Surgical Intervention History of Blood Disorders: Yes (anemia) Adverse Reaction to Blood Flores: No Family History No Pertinent Family Hx Review of Systems Constitutional: see HPI, malaise, weakness EENTM: no symptoms reported Respiratory: no symptoms reported Cardiovascular: no symptoms reported Gastrointestinal: abdominal pain Genitourinary: no symptoms reported Musculoskeletal: no symptoms reported Skin: no symptoms reported Psychiatric/Neurological: No Symptoms Reported All Other Systems Reviewed Negative Unless Noted: Yes Physical Exam Physical Exam Vital Signs Vital Signs - First Documented 04/07/22 10:05 Temp 35.9 Pulse 95 Resp 18 B/P (MAP) 141/89 (106) Pulse Ox 97 O2 Delivery Room Air Capillary Refill : Height, Weight, BMI Height: 5'4.00" Weight: 235lbs. 2.0oz. [id number]; 37.82 BMI Method:Stated General Appearance: No Apparent Distress, WD/WN, Chronically ill, Obese Eyes: Bilateral Eye Normal Inspection, Bilateral Eye PERRL HEENT: PERRL/EOMI, Normal ENT Inspection, Pharynx Normal Neck: Full Range of Motion, Normal Inspection, Non Tender, Supple, Carotid Bruit Respiratory: Chest Non Tender, Lungs Clear, Normal Breath Sounds, No Accessory Muscle Use, No Respiratory Distress Cardiovascular: No Edema, No Gallop, No JVD, No Murmur, Normal Peripheral Pulses, Irregularly Irregular Gastrointestinal: Normal Bowel Sounds, No Organomegaly, No Pulsatile Mass, Non Tender, Soft Back: Normal Inspection, No CVA Tenderness, No Vertebral Tenderness Extremity: Normal Capillary Refill, Normal Inspection, Normal Range of Motion, Non Tender, No Calf Tenderness, No Pedal Edema Neurologic/Psychiatric: Alert, Oriented x3, No Motor/Sensory Deficits, Normal Mood/Affect, 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 Assessment/Plan Assessment and Plan Assess & Plan/Chief Complaint Assessment: Status post uncomplicated partial colectomy by Dr. Blake due to colon mass adenocarcinoma postop day number 1 Anemia severe and symptomatic requiring iron infusions prior to surgery Recent GI bleed Fatigue Afib chronic Diastolic HF Hypothyroidism HTN HLD Hx DVT right leg recently received Lovenox bridge prior to surgery now on heparin drip Chronic back pain Neuropathy Gout Plan: Monitor hemoglobin Supportive care Pain control Incentive spirometer Ambulate Diagnosis/Problems Diagnosis/Problems (1) Cancer of right colon (2) Symptomatic anemia Status: Acute (3) Cellulitis of leg Status: Acute (4) DVT (deep venous thrombosis) Status: Acute (5) Anticoagulant long-term use Status: Chronic (6) Hypertension Status: Chronic (7) Spinal stenosis Status: Chronic (8) Hypothyroidism Status: Chronic (9) Gout Status: Chronic LING BENITEZ DO Apr 08, 2022 06:33
[2022-04-08] MEDS: HEParin 1000 UNIT/ML (10ML VIAL) FOR BOLUS IV PRN ×2 (06:40→18:50)
[2022-04-08 07:08] LABS: BASOPHILS % (AUTO) 0 % (0-10); EOSINOPHILS % (AUTO) 0 % (0-10); HEMATOCRIT 31 % (35-52); HEMOGLOBIN 9.2 g/dL (11.5-16.0); LYMPHOCYTES % (AUTO) 8 % (12-44); MEAN CORPUSCULAR HEMOGLOBIN 26 pg (25-34); MEAN CORPUSCULAR HGB CONC 30 g/dL (32-36); MEAN CORPUSCULAR VOLUME 89 fL (80-99); MEAN PLATELET VOLUME 10.9 fL (9.0-12.2); MONOCYTES # (AUTO) 0.8 10^3/uL (0.0-1.0); MONOCYTES % (AUTO) 6 % (0-12); NEUTROPHILS # (AUTO) 11.3 10^3/uL (1.8-7.8); NEUTROPHILS % (AUTO) 86 % (42-75); WHITE BLOOD COUNT 13.2 10^3/uL (4.3-11.0)
[2022-04-08 07:09] LABS: PLATELET COUNT 390 10^3/uL (130-400)
[2022-04-08 08:35] VITALS: BP 123/80
[2022-04-08] MEDS: HEParin DRIP 25000 UNIT/500ML 500 ML IV SCH ×2 (10:01→18:48)
--- NOTE | 2022-04-08 10:01 | Progress Note - Surgery ---
ELIASADAN Campbell 04/08/22 1001: Subjective Date Seen by a Provider: Apr 08, 2022 Time Seen by a Provider: 09:20 Subjective/Events-last exam Pt is resting in bed comfortably with family at bedside. Pt states that her abd pain is a 6/10 but feels like it's been well controlled on her current pain medications. Pt was able to tolerate chicken broth and liquids today without issue. Pt denies flatus or BM. Pt has not ambulated since surgery. Pt has been using her IS x10 hrly without issue. Pt has no complaints at this time. Pt denies nausea, vomiting, CP, SOA, cough, MASON, and lightheadedness. Review of Systems General: No Chills, No Appetite HEENT: No Head Aches, No Eye Pain Pulmonary: No Dyspnea, No Cough Cardiovascular: No: Chest Pain, Lt Headedness Gastrointestinal: Abdominal Pain (surgical pain); No: Nausea, Vomiting, Diarrhea, Constipation Genitourinary: No Dysuria, No Hematuria Musculoskeletal: No: neck pain, shoulder pain Neurological: No: Weakness, Numbness Objective Exam Vital Signs Date Time Temp Pulse Resp B/P (MAP) Pulse Ox O2 Delivery O2 Flow Rate FiO2 04/08/22 08:35 36.3 92 18 123/80 (94) 90 Room Air 04/08/22 08:32 90 Nasal Cannula 3.00 04/08/22 03:35 36.1 84 16 124/60 (81) 96 Nasal Cannula 3.00 04/08/22 00:10 36.0 92 16 125/65 (85) 96 Nasal Cannula 3.00 04/07/22 19:32 36.0 92 16 128/64 (85) 96 Nasal Cannula 3.00 04/07/22 16:33 36.0 81 95 04/07/22 16:16 36.0 04/07/22 15:57 36.0 81 18 121/78 (92) Nasal Cannula 3.00 04/07/22 14:45 Nasal Cannula 3.00 04/07/22 14:38 36.3 15 116/64 (81) 95 Nasal Cannula 3.00 04/07/22 14:34 Nasal Cannula 3.00 04/07/22 14:30 15 111/69 (83) 94 Nasal Cannula 3.00 04/07/22 14:20 13 105/68 (80) 96 OxyMask 10.00 04/07/22 14:20 OxyMask 10.00 04/07/22 14:10 13 110/60 (77) 97 OxyMask 10.00 04/07/22 14:05 OxyMask 10.00 04/07/22 14:00 17 108/59 (75) 97 OxyMask 10.00 04/07/22 13:50 OxyMask 10.00 04/07/22 13:50 36.3 18 99/63 (75) 97 OxyMask 10.00 04/07/22 10:05 35.9 95 18 141/89 (106) 97 Room Air I & O 04/08/22 07:00 Intake Total 3167 ml Output Total 575 ml Balance 2592 ml Capillary Refill : General Appearance: No Apparent Distress, Obese HEENT: PERRL/EOMI Respiratory: Lungs Clear, Normal Breath Sounds, No Accessory Muscle Use, No Respiratory Distress Cardiovascular: No Murmur, Irregularly Irregular Peripheral Pulses: 2+ Dorsalis Pedis (R), 2+ Left Dors-Pedis (L) Gastrointestinal: soft, tenderness (around surgical wounds), other (midline surgical wound, dry, pink, and intact with no drainage) Extremity: No Calf Tenderness, Pedal Edema (R leg, has chronic swelling and states unchanged from baseline) Neurologic/Psychiatric: Alert, Oriented x3 Skin: Normal Color, Warm/Dry Results Lab Laboratory Tests 04/07/22 16:46: White Blood Count 12.7H, Red Blood Count 3.78L, Hemoglobin 10.0L, Hematocrit 33L , Mean Corpuscular Volume 88, Mean Corpuscular Hemoglobin 27, Mean Corpuscular Hemoglobin Concent 30L, Red Cell Distribution Width 28.6H, Platelet Count 257, Mean Platelet Volume 10.2, Immature Granulocyte % (Auto) 1, Neutrophils (%) (Auto) 94H, Lymphocytes (%) (Auto) 4L, Monocytes (%) (Auto) 1, Eosinophils (%) (Auto) 0, Basophils (%) (Auto) 0, Neutrophils # (Auto) 12.0H, Lymphocytes # (Auto) 0.5L, Monocytes # (Auto) 0.2, Eosinophils # (Auto) 0.0, Basophils # (Auto) 0.0, Immature Granulocyte # (Auto) 0.1, Neutrophils % (Manual) 94, Lymphocytes % (Manual) 3, Monocytes % (Manual) 1, Band Neutrophils 2, Hypochromasia SLIGHT, Microcytosis SLIGHT, Prothrombin Time 13.9, INR Comment 1.0, Activated Partial Thromboplast Time 31 04/07/22 21:58: Activated Partial Thromboplast Time 161*H 04/08/22 05:22: White Blood Count 13.2H, Red Blood Count 3.49L, Hemoglobin 9.2L, Hematocrit 31L, Mean Corpuscular Volume 89, Mean Corpuscular Hemoglobin 26, Mean Corpuscular Hemoglobin Concent 30L, Red Cell Distribution Width 28.9H, Platelet Count 390, Mean Platelet Volume 10.9, Immature Granulocyte % (Auto) 1, Neutrophils (%) (Auto) 86H, Lymphocytes (%) (Auto) 8L, Monocytes (%) (Auto) 6, Eosinophils (%) (Auto) 0, Basophils (%) (Auto) 0, Neutrophils # (Auto) 11.3H, Lymphocytes # (Auto) 1.0, Monocytes # (Auto) 0.8, Eosinophils # (Auto) 0.0, Basophils # (Auto) 0.0, Immature Granulocyte # (Auto) 0.1, Activated Partial Thromboplast Time 53H, Sodium Level 138, Potassium Level 4.1, Chloride Level 107, Carbon Dioxide Level 19L, Anion Gap 12, Blood Urea Nitrogen 11, Creatinine 0.86, Estimat Glomerular Filtration Rate 66, BUN/Creatinine Ratio 13, Glucose Level 152H, Calcium Level 8.8, Corrected Calcium 9.5, Magnesium Level 1.7, Total Bilirubin 0.3, Aspartate Amino Transf (AST/SGOT) 57H, Alanine Aminotransferase (ALT/SGPT) 36, Alkaline Phosphatase 77, Total Protein 6.1L, Albumin 3.1L Microbiology 04/07/22 MRSA Screen - Final, Complete MRSA not isolated Radiology NAME: DAKOTAH MACEDO MED REC#: [id number] PT STATUS: DEP ER : 1935 PHYSICIAN: MAISHA LUO MD ADMIT DATE: 03/31/22/ER Signed Date of Exam:03/31/22 US VENOUS LOWER EXT RT Procedure: US right lower extremity venous. Technique: Multiple real-time grayscale images were obtained over the right lower extremity in various projections. Additional spectral analysis and color Doppler duplex images were also obtained. Date: March 31, 2022. Indication: 86-year-old female, right lower extremity swelling and pain. Comparison: None. Findings: There is incomplete compressibility of the right common femoral vein and greater saphenous vein. There does appear to be plafond of the right common femoral vein. There is no well demonstrated blood flow in the right greater saphenous vein on image 10. The additional imaged right lower extremity venous vasculature appears patent. Impression: 1. Nonocclusive thrombus in the right common femoral vein and findings concerning for occlusive thrombus in the proximal aspect of the right greater saphenous vein. Dictated by: Dictated on workstation # [id number] Dict: 03/31/22 1324 Trans: 03/31/22 1717 CVB [id number] Interpreted by: SOMMER MURRAY MD Electronically signed by: SOMMER MURRAY MD 03/31/229 Assessment/Plan Assessment/Plan Assessment/Plan 1. S/P Laparoscopic hand assisted extended right colon resection 2. Colon Cancer- right side 3. DVT R leg- on heparin IV Pt seems comfortable and has no complaints at this time. Surgical incisions are dry and pink w/o drainage. Has not had a flatus or BM, would recommend ambulation. Continue with liquid diet. Pain medications prn and continue to use IS. Will continue to monitor. ARACELIS BAÑUELOS DO 04/08/22 1324: Subjective Time Seen by a Provider: 12:13 Subjective/Events-last exam Pt seen and examined, states she is doing much better than yesterday. She is tolerating liquids and plans to get up to chair after lunch. Review of Systems General: No Chills Pulmonary: No Dyspnea, No Cough Cardiovascular: No: Chest Pain Gastrointestinal: Abdominal Pain (surgical pain); No: Nausea, Vomiting, Diarrhea, Constipation Genitourinary: No Dysuria, No Hematuria Objective Exam General Appearance: No Apparent Distress, Obese HEENT: PERRL/EOMI Respiratory: Lungs Clear, Normal Breath Sounds, No Accessory Muscle Use, No Respiratory Distress Cardiovascular: No Murmur, Irregularly Irregular Gastrointestinal: soft, tenderness (around surgical wounds), other (midline surgical wound, dry, pink, and intact with no drainage) Extremity: No Calf Tenderness, Pedal Edema (R leg, has chronic swelling and states unchanged from baseline) Neurologic/Psychiatric: Alert, Oriented x3 Assessment/Plan Assessment/Plan Assessment/Plan 1. S/P Laparoscopic hand assisted extended right colon resection 2. Colon Cancer- right side 3. DVT R leg- on heparin IV Pt seems comfortable and has no complaints at this time. Surgical incisions are dry and pink w/o drainage. Has not had a flatus or BM. Encourage ambulation and IS use. Would increase diet if tolerates liquid diet for lunch. Pain medications prn. Supervisory-Addendum Brief Verification & Attestation Participated in pt care: history, MDM, physical Personally performed: exam, history, MDM, supervision of care Care discussed with: Medical Student Procedures: n/a Verification and Attestation of Medical Student E/M Service A medical student performed and documented this service. I then reviewed and verified all information documented by the medical student and made modifications to such information, when appropriate. I personally performed a physical exam, medical decision making and then discussed any differences between the notes and made revisions as necessary to create one note. Aracelis Bañuelos , 04/08/22 , 13:24 ADAN SANTANA Apr 08, 2022 10:01 ARACELIS BAÑUELOS DO Apr 08, 2022 13:24
[2022-04-08 11:08] VITALS: BP 132/88
--- NOTE | 2022-04-08 13:21 | Physical Therapy Evaluation ---
PT Evaluation-General Medical Diagnosis Admission Date Apr 07, 2022 at 09:45 Medical Diagnosis: anemia, colon cancer Onset Date: Apr 07, 2022 Therapy Diagnosis Therapy Diagnosis: impaired mobility Height/Weight Height (Feet): 5 Height (Inches): 4.00 Weight (Pounds): 235 Weight (Ounces): 2.0 Precautions Precautions/Isolations: Fall Prevention, Standard Precautions Weight Bear Status Right Lower Extremity: Right Weight Bearing/Tolerated Left Lower Extremity: Left Weight Bearing/Tolerated Referral Physician: Lou Reason for Referral: Evaluation/Treatment Medical History Pertinent Medical History: Atrial Fib, CAD, HTN Additional Medical History colon cancer with recent recession, skin cancer, chronic edema, hypercholesterol emia, DVT Current History Admit for colon resection. Reviewed History: Yes Social History Home: Single Level Current Living Status: Significant Other Entry Into Home: Level Entry New home (4 years ago) handicapped accessible. Prior Prior Level of Function SCALE: Activities may be completed with or without assistive devices. 6-Edlipbllxj-zhsswtm completes the activity by him/herself with no assistance from a helper. 5-Set-up or Clean-up Assistance-helper sets up or cleans up; patient completes activity. [place] assists only prior to or following the activity. 4-Supervision or Touching Assistance-helper provides verbal cues and/or touching/steadying and/or contact guard assistance as patient completes activity. Assistance may be provided throughout the activity or intermittently. 3-Partial/Moderate Assistance-helper does LESS THAN HALF the effort. [place] lifts, holds or supports trunk or limbs, but provides less than half the effort. 2-Substantial/Maximal Assistance-helper does MORE THAN HALF the effort. [place] lifts or holds trunk or limbs and provides more than half the effort. 1-Jhlfbvmbu-lwwwbi does ALL the effort. Patient does none of the effort to complete the activity. Or, the assistance of 2 or more helpers is required for the patient to complete the activity. If activity was not attempted, code reason: 7-Patient Refused. 9-Not Applicable-not attempted and the patient did not perform the activity before the current illness, exacerbation or injury. 10-Not Attempted due to Environmental Limitations-(lack of equipment, weather restraints, etc.). 88-Not Attempted due to Medical Conditions or Safety Concerns. Bed Mobility: 6 Transfers (B,C,W/C): 6 Gait: 6 Stairs: 3 Indoor Mobility (Ambulation): Independent Stairs: Not Applicalbe Prior Devices Use: Walker PT Evaluation-Current Subjective Pt is alert and oriented. She requested to not get out of bed due to abdominal pain with transfers. She had just returned to bed from the restroom with assistance. Pain Numeric Pain Scale: 5-Moderate Pain Location: Right Location Body Site: Abdomen Pain Description: Ache, Pressure Pt/Family Goals Return home Objective Patient Orientation: Person, Place, Time, Situation Attachments: IV ROM/Strength ROM Upper Extremities WFL ROM Lower Extremities WFL Strength Upper Extremities 3/5 (B) UE gross MMT. Strength Lower Extremities 4-/5 (B) LE gross MMT. Pt able to perform supine LE AROM through partial ROM. Limited by abdominal pain with movement. Sensory Vision: Wears Glasses Hearing: Functional Sensation Right Upper Extremit: Intact Sensation Left Upper Extremity: Intact Sensation Right Lower Extremit: Intact Sensation Left Lower Extremity: Intact Transfers Roll Left to Right (QC): 3 Sit to Lying (QC): 7 Lying to Sitting/Side of Bed(Q: 7 Sit to Stand (QC): 7 Chair/Ven-dv-Tjmcj Xfer(QC): 7 Toilet Transfer (QC): 7 Car Transfer (QC): 7 Gait Does the Patient Walk?: No and Walking Goal IS indicated Mode of Locomotion: Walk Anticipated Mode of Locomotion: Walk Comments/Gait Description Pt refused to sit up or stand due to just returning to bed. Wheelchair Training Does the Pt Use a Wheelchair?: No Assessment/Needs Pt was able to perform supine UE and LE ROM. She had been ambulatory prior to her surgery. 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 Goals Mcc Goals PT Vegetable Harvest Machine Operator Goals Time Frame: Apr 22, 2022 Roll Left & Right (QC): 6 Sit to Lying (QC): 6 Lying-Sitting on Side/Bed(QC): 6 Sit to Stand (QC): 6 Chair/Wsf-nb-Ofdus Xfer(QC): 6 Toilet Transfer (QC): 6 Does the Patient Walk: No and Walking Goal IS indicated Walk 10 feet (QC): 6 Walk 50ft with 2 Turns (QC): 6 Walk 150 ft (QC): 6 PT Plan Problem List Problem List: Activity Tolerance, Functional Strength, Safety, Balance, Gait, Transfer, Bed Mobility Treatment/Plan Treatment Plan: Continue Plan of Care Treatment Duration: Apr 22, 2022 Frequency: 6 times per week Estimated Hrs Per Day: .25 hour per day Patient and/or Family Agrees t: Yes Time Time In: 924 Time Out: 939 DATE: Apr 08, 2022 Total Billed Treatment Time: 15 Total Billed Treatment 1, ARMANI Hernandez PT Apr 08, 2022 13:21
[2022-04-08 15:13] VITALS: BP 121/81
[2022-04-08 19:07] VITALS: BP 147/75
[2022-04-09] MEDS: HYDROcodone/APAP 5 MG/325 MG (LORTAB) TAB PO PRN ×4 (00:33→17:33)
[2022-04-09] MEDS: LACTATED RINGERS 1,000 ML IV SCH ×2 (00:34→08:40)
[2022-04-09 00:35] VITALS: BP 143/88
[2022-04-09 03:53] VITALS: BP 139/82
--- NOTE | 2022-04-09 06:16 | Progress Note ---
Subjective Date Seen by a Provider: Apr 09, 2022 Time Seen by a Provider: 11:00 Subjective/Events-last exam Doing well now Had a lot of blood per rectum early this am that was alarming BP stable HLIVF now Stopped Heparin due to bleeding May need blood transfusion so will check H/H today at 1500 Restarted some home meds Review of Systems General: Fatigue, Malaise Gastrointestinal: Hematochezia Objective Exam Last Set of Vital Signs Vital Signs Date Time Temp Pulse Resp B/P (MAP) Pulse Ox O2 Delivery O2 Flow Rate FiO2 04/09/22 03:53 36.3 75 18 139/82 (101) 92 Room Air 04/08/22 19:25 92 04/08/22 11:08 3.00 Capillary Refill : I&O Intake and Output 04/09/22 00:00 Intake Total 3212 ml Output Total 1375 ml Balance 1837 ml Intake Oral 1062 ml IV Total 2150 ml Output Urine Total 1375 ml # Voids 2 General: Alert, Oriented X3, Cooperative, No Acute Distress Lungs: Clear to Auscultation, Normal Air Movement Heart: Normal S1, Normal S2, No Murmurs, Other (irr irr) Neuro: Normal Gait, Normal Speech, Strength at 5/5 X4 Ext, Normal Tone Results Lab Laboratory Tests 04/08/22 12:30: Activated Partial Thromboplast Time 128*H 04/08/22 18:15: Activated Partial Thromboplast Time 67H 04/09/22 01:37: Activated Partial Thromboplast Time 97H 04/09/22 05:48: Microbiology 04/07/22 MRSA Screen - Final, Complete MRSA not isolated Assessment/Plan Assessment/Plan Assess & Plan/Chief Complaint Assessment: Status post uncomplicated partial colectomy by Dr. Blake due to colon mass adenocarcinoma postop day number 2 Anemia severe and symptomatic requiring iron infusions prior to surgery Episode of hematochezia and decreased hgb so may need transfusion Recent GI bleed 3 weeks ago requiring transfusions Fatigue Afib chronic Diastolic HF Hypothyroidism HTN HLD Hx DVT right leg recently received Lovenox bridge prior to surgery was on heparin drip post operatively but stopped early this morning due to bleeding per rectum Chronic back pain Neuropathy Gout Plan: Monitor hemoglobin recheck today 1500 may need transfusion Stop heparin drip Supportive care Pain control Incentive spirometer Ambulate Diagnosis/Problems Diagnosis/Problems (1) Cancer of right colon (2) Symptomatic anemia Status: Acute (3) Cellulitis of leg Status: Acute (4) DVT (deep venous thrombosis) Status: Acute (5) Anticoagulant long-term use Status: Chronic (6) Hypertension Status: Chronic (7) Spinal stenosis Status: Chronic (8) Hypothyroidism Status: Chronic (9) Gout Status: Chronic VIOLA SPEARS DO Apr 09, 2022 06:16
[2022-04-09 06:42] LABS: BASOPHILS % (AUTO) 0 % (0-10); EOSINOPHILS # (AUTO) 0.1 10^3/uL (0.0-0.3); EOSINOPHILS % (AUTO) 0 % (0-10); HEMATOCRIT 27 % (35-52); HEMOGLOBIN 7.9 g/dL (11.5-16.0); LYMPHOCYTES # (AUTO) 2.1 10^3/uL (1.0-4.0); LYMPHOCYTES % (AUTO) 17 % (12-44); MEAN CORPUSCULAR HEMOGLOBIN 27 pg (25-34); MEAN CORPUSCULAR HGB CONC 30 g/dL (32-36); MEAN CORPUSCULAR VOLUME 92 fL (80-99); MEAN PLATELET VOLUME 10.6 fL (9.0-12.2); MONOCYTES # (AUTO) 1.1 10^3/uL (0.0-1.0); MONOCYTES % (AUTO) 9 % (0-12); NEUTROPHILS # (AUTO) 8.8 10^3/uL (1.8-7.8); NEUTROPHILS % (AUTO) 73 % (42-75); PLATELET COUNT 312 10^3/uL (130-400); WHITE BLOOD COUNT 12.1 10^3/uL (4.3-11.0)
[2022-04-09 06:52] LABS: ALBUMIN 2.9 GM/DL (3.2-4.5); BILIRUBIN,TOTAL 0.3 MG/DL (0.1-1.0); CALCIUM 8.7 MG/DL (8.5-10.1); CREATININE SERUM 0.82 MG/DL (0.60-1.30); POTASSIUM 3.8 MMOL/L (3.6-5.0); TOTAL PROTEIN 5.5 GM/DL (6.4-8.2)
[2022-04-09 08:25] VITALS: BP 147/90
[2022-04-09] MEDS: CYANOCOBALAMIN 1,000 MCG (VITAMIN B-12) TABLET PO SCH (11:29)
[2022-04-09] MEDS: LEVOTHYROXINE 75 MCG (LEVOTHROID) TABLET PO SCH (11:29)
[2022-04-09] MEDS: PANTOPRAZOLE 40 MG (PROTONIX) TAB PO SCH (11:29)
[2022-04-09] MEDS: dilTIAZem120 MG (CARDIZEM CD) CAP PO SCH (11:29)
--- NOTE | 2022-04-09 11:31 | Progress Note - Surgery ---
JOSSELYNRADHIKAADAN Campbell 04/09/22 1131: Subjective Date Seen by a Provider: Apr 09, 2022 Time Seen by a Provider: 10:22 Subjective/Events-last exam Pt is resting comfortably in bed with family bedside. Pt states that last night she experienced 2 episodes of passing large amounts of blood and abd cramping. Pt notes that the first episode contained some stool but the subsequent episode was only blood. Pt states that the blood was red and that following the second time she started to feel lightheaded. Pt's heparin was DC last night. Today, pt states that she has not experienced another episode and that her abd cramping and lightheadedness has resolved. Pt notes that she does feel more weak today. Pt denies any BMs today. Pt notes an overall improvement of her abd pain, rating it a 4/10 at rest and an 8/10 with walking. Pt states that she has been able to ambulate to the restroom without issue with her walker. Pt has been tolerating clears without issue. Pt continues to use IS. Pt denies abd cramping, CP, SOB, current lightheadedness, and cough. Review of Systems General: No Chills, No Appetite HEENT: No Head Aches, No Visual Changes Pulmonary: No Dyspnea, No Cough Cardiovascular: No: Chest Pain, Lt Headedness Gastrointestinal: Abdominal Pain (sore around surgical site); No: Nausea, Vomiting Genitourinary: No Dysuria, No Hematuria Musculoskeletal: No: neck pain, shoulder pain, leg pain Neurological: Weakness; No: Numbness Objective Exam Vital Signs Date Time Temp Pulse Resp B/P (MAP) Pulse Ox O2 Delivery O2 Flow Rate FiO2 04/09/22 08:25 36.8 79 18 147/90 (109) 93 Room Air 04/09/22 03:53 36.3 75 18 139/82 (101) 92 Room Air 04/09/22 00:35 36.5 86 18 143/88 (106) 92 Room Air 04/08/22 19:25 92 04/08/22 19:07 37.0 82 20 147/75 (99) 92 Room Air 04/08/22 15:13 36.9 83 20 121/81 (94) 92 Room Air I & O 04/09/22 07:00 Intake Total 2140 ml Output Total 1100 ml Balance 1040 ml Capillary Refill : General Appearance: No Apparent Distress, Obese HEENT: PERRL/EOMI Respiratory: Lungs Clear, Normal Breath Sounds, No Accessory Muscle Use, No Respiratory Distress Cardiovascular: No Murmur, Irregularly Irregular Peripheral Pulses: 2+ Dorsalis Pedis (R), 2+ Left Dors-Pedis (L) Gastrointestinal: normal bowel sounds, soft, tenderness (around surgical wounds), other (midline surgical wound, dry, pink, and intact with no drainage) Extremity: No Calf Tenderness, Pedal Edema (B/L +1 pitting edema ) Neurologic/Psychiatric: Alert, Oriented x3 Skin: Normal Color, Warm/Dry, Other (surgical wounds are intact, pink, and dry) Lymphatic: No Adenopathy Results Lab Laboratory Tests 04/08/22 12:30: Activated Partial Thromboplast Time 128*H 04/08/22 18:15: Activated Partial Thromboplast Time 67H 04/09/22 01:37: Activated Partial Thromboplast Time 97H 04/09/22 05:48: White Blood Count 12.1H, Red Blood Count 2.90L, Hemoglobin 7.9L, Hematocrit 27L, Mean Corpuscular Volume 92, Mean Corpuscular Hemoglobin 27, Mean Corpuscular Hemoglobin Concent 30L, Red Cell Distribution Width , Platelet Count 312, Mean Platelet Volume 10.6, Immature Granulocyte % (Auto) 1, Neutrophils (%) (Auto) 73 , Lymphocytes (%) (Auto) 17, Monocytes (%) (Auto) 9, Eosinophils (%) (Auto) 0, Basophils (%) (Auto) 0, Neutrophils # (Auto) 8.8H, Lymphocytes # (Auto) 2.1, Monocytes # (Auto) 1.1H, Eosinophils # (Auto) 0.1, Basophils # (Auto) 0.0, Immature Granulocyte # (Auto) 0.1, Sodium Level 137, Potassium Level 3.8, Chloride Level 108H, Carbon Dioxide Level 18L, Anion Gap 11, Blood Urea Nitrogen 12, Creatinine 0.82, Estimat Glomerular Filtration Rate 70, BUN/Creatinine Ratio 15, Glucose Level 98, Calcium Level 8.7, Corrected Calcium 9.6, Total Bilirubin 0.3, Aspartate Amino Transf (AST/SGOT) 38H, Alanine Aminotransferase (ALT/SGPT) 25, Alkaline Phosphatase 62, Total Protein 5.5L, Albumin 2.9L Microbiology 04/07/22 MRSA Screen - Final, Complete MRSA not isolated Assessment/Plan Assessment/Plan Assessment/Plan Assessment: Status post uncomplicated partial colectomy by Dr. Blake due to colon mass adenocarcinoma postop day number 3 Anemia severe and symptomatic requiring iron infusions prior to surgery Recent GI bleed- 04/08 Afib chronic CHF Hx DVT right leg Pt's pain seems to be well controlled and is improving. Heparin was DC due to bleeding yesterday. Hgb has dropped from 9.2 to 7.9 today but pt seems asymptomatic. Pt and family were concerned regarding her drop in hgb, told them that we would continue to monitor and transfuse if needed. Pt and family also expressed concern about her home meds not being restarted since admission. Consider restarting home medications, excluding the pt's anticoagulation at this time. Pt has been tolerating clears, consider progressing diet. Continue with ambulation, IS, and pain medication prn. ARACELIS BAÑUELOS DO 04/09/22 1247: Subjective Time Seen by a Provider: 12:24 Subjective/Events-last exam Pt seen and examined, states she is doing better than last night. Had "bad cramping" but that is gone and is tolerating diet. Review of Systems General: No Chills Pulmonary: No Dyspnea, No Cough Cardiovascular: No: Chest Pain Gastrointestinal: Abdominal Pain (sore around surgical site); No: Nausea, Vomiting Objective Exam General Appearance: No Apparent Distress, Obese HEENT: PERRL/EOMI Respiratory: Lungs Clear, Normal Breath Sounds, No Accessory Muscle Use, No Respiratory Distress Cardiovascular: No Murmur, Irregularly Irregular Gastrointestinal: normal bowel sounds, soft, tenderness (around surgical wounds), other (midline surgical wound, dry, pink, and intact with no drainage) Extremity: No Calf Tenderness, Pedal Edema (B/L +1 pitting edema ) Neurologic/Psychiatric: Alert, Oriented x3 Assessment/Plan Assessment/Plan Assessment/Plan POD#3 partial colectomy Anemia severe and symptomatic requiring iron infusions prior to surgery Recent GI bleed- 04/08 Afib chronic CHF Hx DVT right leg Pt's pain seems to be well controlled and is improving. Heparin was DC due to bleeding yesterday. Hgb has dropped from 9.2 to 7.9 today but pt seems asymptomatic. Pt and family were concerned regarding her drop in hgb, told them that we would continue to monitor and transfuse if needed. Pt and family also expressed concern about her home meds not being restarted since admission. Consider restarting home medications, excluding the pt's anticoagulation at this time. Pt has been tolerating clears, consider progressing diet. Continue with ambulation, IS, and pain medication prn. Supervisory-Addendum Brief Verification & Attestation Participated in pt care: history, MDM, physical Personally performed: exam, history, MDM, supervision of care Care discussed with: Medical Student Procedures: n/a Verification and Attestation of Medical Student E/M Service A medical student performed and documented this service. I then reviewed and verified all information documented by the medical student and made modifications to such information, when appropriate. I personally performed a physical exam, medical decision making and then discussed any differences between the notes and made revisions as necessary to create one note. Aracelis Bañuelos , 04/09/22 , 12:47 ADAN SANTANA Apr 09, 2022 11:31 ARACELIS BAÑUELOS DO Apr 09, 2022 12:47
[2022-04-09 12:11] VITALS: BP 125/63
[2022-04-09 15:35] LABS: HEMOGLOBIN 8.5 g/dL (11.5-16.0)
[2022-04-09 15:59] VITALS: BP 132/65
[2022-04-09 19:14] VITALS: BP 128/84
[2022-04-10] VITALS (8 sets, daily range): BP systolic 104–145; BP diastolic 63–84
[2022-04-10] MEDS: HYDROcodone/APAP 5 MG/325 MG (LORTAB) TAB PO PRN ×4 (01:23→21:29)
[2022-04-10] MEDS: LEVOTHYROXINE 75 MCG (LEVOTHROID) TABLET PO SCH (05:35)
[2022-04-10] MEDS: CYANOCOBALAMIN 1,000 MCG (VITAMIN B-12) TABLET PO SCH (05:36)
[2022-04-10] MEDS: PANTOPRAZOLE 40 MG (PROTONIX) TAB PO SCH (05:36)
[2022-04-10 05:47] LABS: BASOPHILS % (AUTO) 0 % (0-10); EOSINOPHILS # (AUTO) 0.1 10^3/uL (0.0-0.3); EOSINOPHILS % (AUTO) 1 % (0-10); HEMATOCRIT 27 % (35-52); HEMOGLOBIN 8.1 g/dL (11.5-16.0); LYMPHOCYTES # (AUTO) 2.8 10^3/uL (1.0-4.0); LYMPHOCYTES % (AUTO) 22 % (12-44); MEAN CORPUSCULAR HEMOGLOBIN 27 pg (25-34); MEAN CORPUSCULAR HGB CONC 30 g/dL (32-36); MEAN CORPUSCULAR VOLUME 91 fL (80-99); MEAN PLATELET VOLUME 10.4 fL (9.0-12.2); MONOCYTES # (AUTO) 1.2 10^3/uL (0.0-1.0); MONOCYTES % (AUTO) 9 % (0-12); NEUTROPHILS # (AUTO) 8.4 10^3/uL (1.8-7.8); NEUTROPHILS % (AUTO) 67 % (42-75); PLATELET COUNT 297 10^3/uL (130-400); WHITE BLOOD COUNT 12.5 10^3/uL (4.3-11.0)
[2022-04-10 06:12] LABS: ALBUMIN 2.9 GM/DL (3.2-4.5); BILIRUBIN,TOTAL 0.5 MG/DL (0.1-1.0); CALCIUM 8.6 MG/DL (8.5-10.1); CREATININE SERUM 0.81 MG/DL (0.60-1.30); POTASSIUM 3.8 MMOL/L (3.6-5.0); TOTAL PROTEIN 5.7 GM/DL (6.4-8.2)
--- NOTE | 2022-04-10 07:50 | Progress Note - Surgery ---
SAIRA OSEGUERA 04/10/22 0750: Subjective Date Seen by a Provider: Apr 10, 2022 Time Seen by a Provider: 07:45 Subjective/Events-last exam Upon follow-up for extended right colectomy--post-op day 3, Lilli appears to be doing well; she is sitting upright and is accompanied by her . She states that her pain is at a 7/10 when she is ambulating to the bathroom, but is minimal at rest. She states that she has not had a bowel movement or flatus, however, she did have hematochezia last night, so heparin was discontinued. She further states that she is trying to get up and walk, and is using her IS as much as she can. Incisions are intact, dry, and without purulence. At this time, she has no complaints. Review of Systems General: No Chills; Fatigue HEENT: No Head Aches, No Visual Changes Pulmonary: No Dyspnea, No Cough Cardiovascular: No: Chest Pain, Palpitations Gastrointestinal: Abdominal Pain Genitourinary: No Dysuria Musculoskeletal: leg pain (R leg tenderness, near groin, upon walking) Neurological: No: Numbness, Incoordination Focused Exam Respiratory: Chest Non Tender, Normal Breath Sounds, Crackles Cardiovascular: Regular Rate, Rhythm, No Gallop, Normal Peripheral Pulses Peripheral Pulses: 2+ Radial Pulses (R), 2+ Radial Pulses (L) Skin: normal color, warm/dry, other (Surgical scar in mid abdomen, healing well) Objective Exam Vital Signs Date Time Temp Pulse Resp B/P (MAP) Pulse Ox O2 Delivery O2 Flow Rate FiO2 04/10/22 03:44 36.0 83 19 144/72 (96) 91 Room Air 04/10/22 00:08 36.6 93 18 137/79 (98) 96 Room Air 04/09/22 19:14 36.8 95 20 128/84 (99) 93 Room Air 04/09/22 15:59 36.9 82 18 132/65 (87) 91 Room Air 04/09/22 12:11 36.2 89 18 125/63 (83) Room Air 04/09/22 08:25 36.8 79 18 147/90 (109) 93 Room Air I & O 04/10/22 07:00 Intake Total 2820 ml Output Total 1450 ml Balance 1370 ml Capillary Refill : General Appearance: No Apparent Distress, Obese HEENT: PERRL/EOMI Respiratory: Lungs Clear, Normal Breath Sounds, No Accessory Muscle Use, No Respiratory Distress Cardiovascular: No Murmur, Irregularly Irregular Peripheral Pulses: 2+ Dorsalis Pedis (R), 2+ Left Dors-Pedis (L) Gastrointestinal: normal bowel sounds, soft, tenderness (around surgical wounds), other (midline surgical wound, dry, pink, and intact with no drainage) Extremity: No Calf Tenderness, Pedal Edema (B/L +1 pitting edema ) Neurologic/Psychiatric: Alert, Oriented x3 Skin: Normal Color, Warm/Dry, Other (surgical wounds are intact, pink, and dry) Lymphatic: No Adenopathy Results Lab Laboratory Tests 04/09/22 15:24: Hemoglobin 8.5L, Hematocrit 29L 04/10/22 05:05: Hemoglobin 8.1L, Hematocrit 27L, White Blood Count 12.5H, Red Blood Count 2.97L, Mean Corpuscular Volume 91, Mean Corpuscular Hemoglobin 27, Mean Corpuscular Hemoglobin Concent 30L, Red Cell Distribution Width , Platelet Count 297, Mean Platelet Volume 10.4, Immature Granulocyte % (Auto) 1, Neutrophils (%) (Auto) 67, Lymphocytes (%) (Auto) 22, Monocytes (%) (Auto) 9, Eosinophils (%) (Auto) 1, Basophils (%) (Auto) 0, Neutrophils # (Auto) 8.4H, Lymphocytes # (Auto) 2.8, Monocytes # (Auto) 1.2H, Eosinophils # (Auto) 0.1, Basophils # (Auto) 0.0, Immature Granulocyte # (Auto) 0.1, Sodium Level 137, Potassium Level 3.8, Chloride Level 106, Carbon Dioxide Level 23, Anion Gap 8, Blood Urea Nitrogen 12, Creatinine 0.81, Estimat Glomerular Filtration Rate 71, BUN/Creatinine Ratio 15, Glucose Level 94, Calcium Level 8.6, Corrected Calcium 9.5, Total Bilirubin 0.5, Aspartate Amino Transf (AST/SGOT) 25, Alanine Aminotransferase (ALT/SGPT) 19, Alkaline Phosphatase 66, Total Protein 5.7L, Albumin 2.9L Microbiology 04/07/22 MRSA Screen - Final, Complete MRSA not isolated Assessment/Plan Assessment/Plan Assessment/Plan Assessment: Status post uncomplicated partial colectomy by Dr. Blake due to colon mass adenocarcinoma postop day number 2 Anemia severe and symptomatic requiring iron infusions prior to surgery Episode of hematochezia and decreased hgb so may need transfusion Recent GI bleed 3 weeks ago requiring transfusions Fatigue Afib chronic Diastolic HF Hypothyroidism HTN HLD Hx DVT right leg recently received Lovenox bridge prior to surgery was on heparin drip post operatively but stopped early this morning due to bleeding per rectum Chronic back pain Neuropathy Gout Plan: Monitor hemoglobin recheck today 1500 may need transfusion Stop heparin drip Supportive care Pain control Incentive spirometer Ambulate Final Diagnosis S/P partial colectomy by Dr. Blake due to colon mass adenocarcinoma postop day number 3 Anemia severe and symptomatic requiring iron infusions prior to surgery Recent GI bleed- 04/08 Afib chronic CHF Hx DVT right leg Pt's pain seems to be well controlled and is improving. Heparin was DC due to bleeding yesterday. Hgb has dropped from 9.2 to 7.9 today but pt seems asymptomatic. Pt and family were concerned regarding her drop in hgb, told them that we would continue to monitor and transfuse if needed. Pt and family also expressed concern about her home meds not being restarted since admission. Consider restarting home medications, excluding the pt's anticoagulation at this time. Pt has been tolerating clears, consider progressing diet. Continue with ambulation, IS, and pain medication prn. ARABELLA BLAKE DO 04/10/22 1405: Subjective Subjective/Events-last exam Pain controlled. Using IS. Had bleeding so heparin drip was stopped. Tolerating clears. Hgb had drop. Not ambulating much. Denies n/v fever sweats chills shortness of breath or chest pain. Objective Exam General Appearance: No Apparent Distress, Obese HEENT: PERRL/EOMI Neck: Normal Inspection, Non Tender Respiratory: Chest Non Tender, No Accessory Muscle Use, No Respiratory Distress Cardiovascular: Regular Rate, Rhythm, No JVD Gastrointestinal: soft, tenderness (around surgical wounds), other (midline surgical wound, dry, pink, and intact with no drainage) Extremity: No Calf Tenderness, Pedal Edema (B/L +1 pitting edema ) Neurologic/Psychiatric: Alert, Oriented x3 Skin: Normal Color, Warm/Dry Lymphatic: No Adenopathy Assessment/Plan Assessment/Plan Assessment/Plan Status post lap hand assisted right colon resection Anemia severe and symptomatic requiring iron infusions prior to surgery Hx DVT right leg recently received Lovenox bridge prior to surgery was on heparin drip post operatively but stopped early this morning due to bleeding per rectum Gi Bleed likely lower due to anastamosis. Plan: Monitor hemoglobin transfuse as needed. Higher risk due to DVT right leg had to stop heparin drip Supportive care Pain control Incentive spirometer Ambulate Clear liquids. When Hgb stable will restart Heparin. On Protonix Supervisory-Addendum Brief Verification & Attestation Participated in pt care: history, MDM, physical Personally performed: exam, history, MDM, supervision of care Care discussed with: Medical Student Procedures: n/a Results interpretation: Verified all documentation Verification and Attestation of Medical Student E/M Service A medical student performed and documented this service in my presence. I reviewed and verified all information documented by the medical student and made modifications to such information, when appropriate. I personally performed the physical exam and medical decision making. Arabella Blake, Apr 10, 2022,14:08 SAIRA OSEGUERA Apr 10, 2022 07:50 ARABELLA BLAKE DO Apr 10, 2022 14:05
[2022-04-10] MEDS: dilTIAZem120 MG (CARDIZEM CD) CAP PO SCH (08:01)
--- NOTE | 2022-04-10 09:33 | Physical Therapy Daily Note ---
PT Daily Note-Current Subjective Patient agrees to PT. Pain Section J - Health Conditions 1. Rarely or not at all 2. Occasionally 3. Frequently 4. Almost constantly 8. Unable to answer Pain Effect on Sleep: 1 Pain Interference with Therapy: 1 Pain Interference w/Day-to-Day: 1 Mental Status Patient Orientation: Normal For Age Transfers SCALE: Activities may be completed with or without assistive devices. 2-Jlhhlkmifq-ctguiqy completes the activity by him/herself with no assistance from a helper. 5-Set-up or Clean-up Assistance-helper sets up or cleans up; patient completes activity. [place] assists only prior to or following the activity. 4-Supervision or Touching Assistance-helper provides verbal cues and/or touching/steadying and/or contact guard assistance as patient completes activity. Assistance may be provided throughout the activity or intermittently. 3-Partial/Moderate Assistance-helper does LESS THAN HALF the effort. [place] lifts, holds or supports trunk or limbs, but provides less than half the effort. 2-Substantial/Maximal Assistance-helper does MORE THAN HALF the effort. [place] lifts or holds trunk or limbs and provides more than half the effort. 9-Ywzekkbcs-xunxia does ALL the effort. Patient does none of the effort to complete the activity. Or, the assistance of 2 or more helpers is required for the patient to complete the activity. If activity was not attempted, code reason: 7-Patient Refused. 9-Not Applicable-not attempted and the patient did not perform the activity before the current illness, exacerbation or injury. 10-Not Attempted due to Environmental Limitations-(lack of equipment, weather restraints, etc.). 88-Not Attempted due to Medical Conditions or Safety Concerns. Sit to Stand (QC): 5 Chair/Lda-fp-Mhvrd Xfer(QC): 5 Toilet Transfer (QC): 5 (patient toilets independently) Weight Bearing Right Lower Extremity: Right Weight Bearing/Tolerated Left Lower Extremity: Left Weight Bearing/Tolerated Gait Training Distance: 200' Walk 10 feet (QC): 5 Walk 50 ft with 2 Turns(QC): 5 Walk 150 ft (QC): 5 Gait Assistive Device: FWW very slow, steady gait sequence Assessment PT instructed patient and nursing staff to ambulate PRN in hallway to improve functional mobility. Patient progressing with treatment plan. PT Chcf Goals Strategic Planning Consultant Goals PT Strategic Planning Consultant Goals Time Frame: Apr 22, 2022 Roll Left & Right (QC): 6 Sit to Lying (QC): 6 Lying-Sitting on Side/Bed(QC): 6 Sit to Stand (QC): 6 Chair/Lom-dn-Hkixn Xfer(QC): 6 Toilet Transfer (QC): 6 Does the Patient Walk: No and Walking Goal IS indicated Walk 10 feet (QC): 6 Walk 50ft with 2 Turns (QC): 6 Walk 150 ft (QC): 6 PT Plan Treatment/Plan Treatment Plan: Continue Plan of Care Treatment Duration: Apr 22, 2022 Frequency: 6 times per week Estimated Hrs Per Day: .25 hour per day Patient and/or Family Agrees t: Yes Time Time In: 908 Time Out: 919 DATE: Apr 10, 2022 Total Billed Treatment Time: 11 Total Billed Treatment 1 visit FA 11 min EMY [place] PT Apr 10, 2022 09:33
--- NOTE | 2022-04-10 12:07 | Progress Note ---
[facility] 1207: Subjective Date Seen by a Provider: Apr 10, 2022 Time Seen by a Provider: 10:00 Subjective/Events-last exam Lilli is an 86 y F with history of anemia and GI bleed requiring iron transfusion. She is s/p partial colectomy for colon mass on 04/07/[address] Blake. She had hematochezia on 04/08 and heparin was discontinued. Today she reports feeling well. She has not had any further episodes of hematochezia, she is passing gas and urinating without issue. Notes some pain and tenderness of the abdomen along incisions. She is able to ambulate though it increases her pain. She is tolerating a clear diet today. Hgb at 8.1 today. Review of Systems General: No Chills; Appetite HEENT: No Head Aches Pulmonary: No Dyspnea, No Cough Cardiovascular: Edema; No: Chest Pain, Palpitations Gastrointestinal: Abdominal Pain (incisional); No: Vomiting Genitourinary: No Dysuria, No Hematuria Musculoskeletal: No: leg pain Neurological: No: Weakness Objective Exam Last Set of Vital Signs Vital Signs Date Time Temp Pulse Resp B/P (MAP) Pulse Ox O2 Delivery O2 Flow Rate FiO2 04/10/22 11:54 36.0 84 18 104/63 (77) 92 Room Air 04/08/22 19:25 92 04/08/22 11:08 3.00 Capillary Refill : I&O Intake and Output 04/10/22 00:00 Intake Total 2920 ml Output Total 1000 ml Balance 1920 ml Intake Oral 1620 ml IV Total 1300 ml Output Urine Total 1000 ml # Voids 4 # Bowel Movements 1 General: Alert, Oriented X3, Cooperative, No Acute Distress HEENT: PERRLA, EOMI Neck: Supple, No JVD Lungs: Clear to Auscultation, Normal Air Movement Heart: Normal S1, Normal S2, Other (irregularly irregular) Abdomen: Normal Bowel Sounds, Soft, Other (incisons clean/dry/intact, incisional TTP) Extremities: Other (2+ edema of right LE, 1+ edema left LE; non tender b/l LE) Skin: No Significant Lesion Neuro: Normal Speech Psych/Mental Status: Mental Status NL, Mood NL Results Lab Laboratory Tests 04/09/22 15:24: Hemoglobin 8.5L, Hematocrit 29L 04/10/22 05:05: Hemoglobin 8.1L, Hematocrit 27L, White Blood Count 12.5H, Red Blood Count 2.97L, Mean Corpuscular Volume 91, Mean Corpuscular Hemoglobin 27, Mean Corpuscular Hemoglobin Concent 30L, Red Cell Distribution Width , Platelet Count 297, Mean Platelet Volume 10.4, Immature Granulocyte % (Auto) 1, Neutrophils (%) (Auto) 6 7, Lymphocytes (%) (Auto) 22, Monocytes (%) (Auto) 9, Eosinophils (%) (Auto) 1, Basophils (%) (Auto) 0, Neutrophils # (Auto) 8.4H, Lymphocytes # (Auto) 2.8, Monocytes # (Auto) 1.2H, Eosinophils # (Auto) 0.1, Basophils # (Auto) 0.0, Immature Granulocyte # (Auto) 0.1, Sodium Level 137, Potassium Level 3.8, Chloride Level 106, Carbon Dioxide Level 23, Anion Gap 8, Blood Urea Nitrogen 12, Creatinine 0.81, Estimat Glomerular Filtration Rate 71, BUN/Creatinine Ratio 15, Glucose Level 94, Calcium Level 8.6, Corrected Calcium 9.5, Total Bilirubin 0.5, Aspartate Amino Transf (AST/SGOT) 25, Alanine Aminotransferase (ALT/SGPT) 19, Alkaline Phosphatase 66, Total Protein 5.7L, Albumin 2.9L Microbiology 04/07/22 MRSA Screen - Final, Complete MRSA not isolated Assessment/Plan Assessment/Plan Assess & Plan/Chief Complaint Assessment: Status post uncomplicated partial colectomy by Dr. Blake due to colon mass adenocarcinoma postop day number 3 Anemia severe and symptomatic requiring iron infusions prior to surgery Episode of hematochezia and decreased hgb so may need transfusion Recent GI bleed 3 weeks ago requiring transfusions Fatigue Afib chronic Diastolic HF Hypothyroidism HTN HLD Hx DVT right leg recently received Lovenox bridge prior to surgery was on heparin drip post operatively but stopped due to bleeding per rectum Chronic back pain Neuropathy Gout Plan: Monitor hemoglobin and transfuse as needed Hold heparin drip Supportive care Pain control Incentive spirometer Ambulate LING SPEARS DO 04/11/22 0458: Assessment/Plan Assessment/Plan Assess & Plan/Chief Complaint Ambulate Strengthen Monitor hemoglobin Supervisory-Addendum Brief Verification & Attestation Participated in pt care: history, MDM, physical Personally performed: exam, history, MDM, supervision of care Care discussed with: Medical Student Procedures: n/a Results interpretation: Verified all documentation Verification and Attestation of Medical Student E/M Service A medical student performed and documented this service in my presence. I reviewed and verified all information documented by the medical student and made modifications to such information, when appropriate. I personally performed the physical exam and medical decision making. Ling Spears, Apr 11, 2022,04:57 WILMA GALICIA Apr 10, 2022 12:07 LING SPEARS DO Apr 11, 2022 04:58
[2022-04-11 03:21] VITALS: BP 142/80
[2022-04-11] MEDS: CYANOCOBALAMIN 1,000 MCG (VITAMIN B-12) TABLET PO SCH (05:43)
[2022-04-11] MEDS: LEVOTHYROXINE 75 MCG (LEVOTHROID) TABLET PO SCH (05:43)
[2022-04-11] MEDS: PANTOPRAZOLE 40 MG (PROTONIX) TAB PO SCH (05:43)
[2022-04-11 06:01] LABS: BASOPHILS % (AUTO) 0 % (0-10); EOSINOPHILS # (AUTO) 0.2 10^3/uL (0.0-0.3); EOSINOPHILS % (AUTO) 2 % (0-10); HEMATOCRIT 28 % (35-52); HEMOGLOBIN 8.2 g/dL (11.5-16.0); LYMPHOCYTES # (AUTO) 1.9 10^3/uL (1.0-4.0); LYMPHOCYTES % (AUTO) 18 % (12-44); MEAN CORPUSCULAR HEMOGLOBIN 27 pg (25-34); MEAN CORPUSCULAR HGB CONC 30 g/dL (32-36); MEAN CORPUSCULAR VOLUME 91 fL (80-99); MEAN PLATELET VOLUME 10.1 fL (9.0-12.2); MONOCYTES # (AUTO) 0.9 10^3/uL (0.0-1.0); MONOCYTES % (AUTO) 8 % (0-12); NEUTROPHILS # (AUTO) 7.7 10^3/uL (1.8-7.8); NEUTROPHILS % (AUTO) 71 % (42-75); PLATELET COUNT 289 10^3/uL (130-400); WHITE BLOOD COUNT 10.8 10^3/uL (4.3-11.0)
[2022-04-11 06:42] LABS: ALBUMIN 2.8 GM/DL (3.2-4.5); BILIRUBIN,TOTAL 0.4 MG/DL (0.1-1.0); CREATININE SERUM 0.74 MG/DL (0.60-1.30); POTASSIUM 3.6 MMOL/L (3.6-5.0); TOTAL PROTEIN 5.7 GM/DL (6.4-8.2)
[2022-04-11 06:59] LABS: CALCIUM 8.6 MG/DL (8.5-10.1)
--- NOTE | 2022-04-11 07:24 | Progress Note - Surgery ---
ONEILL-SAIRA LOMELI 04/11/22 0724: Subjective Date Seen by a Provider: Apr 11, 2022 Time Seen by a Provider: 07:19 Subjective/Events-last exam Upon follow-up for extended right colectomy--post-op day 4--Lilli appears to be resting comfortably. She states that her pain is absent at rest, but becomes a 6-7/10 upon moving positions and ambulation. She denies any bowel movements, but has passed flatus, which was accompanied by minimal blood. Lilli continues to work with PT to ambulate, and is utilizing her incentive spirometer 10x/hr. She denies any nausea, vomiting, chills, or fever. She states her appetite is intact and that she is hoping to progress to solid foods soon. Review of Systems General: No Chills, No Night Sweats; Fatigue HEENT: No Visual Changes, No Eye Pain Pulmonary: No Dyspnea, No Cough Cardiovascular: No: Chest Pain, Palpitations Gastrointestinal: Abdominal Pain (decreased from yesterday); No: Nausea, Vomiting Genitourinary: No Dysuria, No Frequency Musculoskeletal: No: neck pain, shoulder pain Neurological: No: Weakness, Numbness Focused Exam Respiratory: Chest Non Tender, Lungs Clear, Normal Breath Sounds, No Accessory Muscle Use Cardiovascular: Regular Rate, Rhythm, No Gallop, No JVD, No Murmur, Normal Peripheral Pulses Peripheral Pulses: 2+ Radial Pulses (L) Skin: normal color, warm/dry Objective Exam Vital Signs Date Time Temp Pulse Resp B/P (MAP) Pulse Ox O2 Delivery O2 Flow Rate FiO2 04/11/22 03:21 36.8 81 20 142/80 (100) 95 Room Air 04/10/22 23:41 36.5 76 20 145/84 (104) 95 Room Air 04/10/22 20:06 36.4 77 20 134/80 (98) 94 Room Air 04/10/22 19:47 Room Air 04/10/22 16:00 36.1 71 20 127/69 (88) 93 Room Air 04/10/22 11:54 36.0 84 18 104/63 (77) 92 Room Air 04/10/22 07:50 36.1 84 19 131/84 (100) Room Air I & O 04/11/22 07:00 Intake Total 2190 ml Output Total 2000 ml Balance 190 ml Capillary Refill : General Appearance: No Apparent Distress, Obese HEENT: PERRL/EOMI Neck: Normal Inspection, Non Tender Respiratory: Chest Non Tender, No Accessory Muscle Use, No Respiratory Distress Cardiovascular: Regular Rate, Rhythm, No JVD Peripheral Pulses: 2+ Dorsalis Pedis (R), 2+ Left Dors-Pedis (L), 2+ Radial Pulses (R), 2+ Radial Pulses (L) Gastrointestinal: soft, tenderness (around surgical wounds), other (midline surgical wound, dry, pink, and intact with no drainage) Extremity: No Calf Tenderness, Pedal Edema (B/L +1 pitting edema ), Swelling Neurologic/Psychiatric: Alert, Oriented x3 Skin: Normal Color, Warm/Dry Lymphatic: No Adenopathy Results Lab Laboratory Tests 04/11/22 05:30: White Blood Count 10.8, Red Blood Count 3.04L, Hemoglobin 8.2L, Hematocrit 28L, Mean Corpuscular Volume 91, Mean Corpuscular Hemoglobin 27, Mean Corpuscular Hemoglobin Concent 30L, Red Cell Distribution Width , Platelet Count 289, Mean Platelet Volume 10.1, Immature Granulocyte % (Auto) 1, Neutrophils (%) (Auto) 71, Lymphocytes (%) (Auto) 18, Monocytes (%) (Auto) 8, Eosinophils (%) (Auto) 2, Basophils (%) (Auto) 0, Neutrophils # (Auto) 7.7, Lymphocytes # (Auto) 1.9, Monocytes # (Auto) 0.9, Eosinophils # (Auto) 0.2, Basophils # (Auto) 0.0, Amaris ture Granulocyte # (Auto) 0.1, Sodium Level 136, Potassium Level 3.6, Chloride Level 104, Carbon Dioxide Level 25, Anion Gap 7, Blood Urea Nitrogen 11, Creatinine 0.74, Estimat Glomerular Filtration Rate 79, BUN/Creatinine Ratio 15, Glucose Level 92, Calcium Level 8.6, Corrected Calcium 9.6, Total Bilirubin 0.4, Aspartate Amino Transf (AST/SGOT) 23, Alanine Aminotransferase (ALT/SGPT) 16, Alkaline Phosphatase 74, Total Protein 5.7L, Albumin 2.8L Microbiology 04/07/22 MRSA Screen - Final, Complete MRSA not isolated Assessment/Plan Assessment/Plan Admission Diagonsis Assessment: Status post lap hand assisted right colon resection Anemia severe and symptomatic requiring iron infusions prior to surgery Hx DVT right leg recently received Lovenox bridge prior to surgery was on heparin drip post operatively but stopped early this morning due to bleeding per rectum Gi Bleed likely lower due to anastamosis. Plan: Monitor hemoglobin transfuse as needed. Higher risk due to DVT right leg had to stop heparin drip Supportive care Pain control Incentive spirometer Ambulate Clear liquids. When Hgb stable will restart Heparin. On Protonix Assessment/Plan Ambulate Strengthen Monitor hemoglobin ARABELLA NICKERSON DO 04/12/22 1726: Subjective Subjective/Events-last exam Patient sitting in chair. Passing flatus. Pain controlled. Using IS. Tolerating clears. No new complaints. Objective Exam General Appearance: No Apparent Distress, Obese HEENT: PERRL/EOMI, Normal ENT Inspection Neck: Normal Inspection, Non Tender Respiratory: Chest Non Tender, No Accessory Muscle Use, No Respiratory Distress Cardiovascular: Regular Rate, Rhythm, No JVD Gastrointestinal: soft, tenderness (incisional, c/d/i no signs of infection), other (midline surgical wound, dry, pink, and intact with no drainage) Extremity: No Calf Tenderness, Pedal Edema (B/L +1 pitting edema ), Swelling Neurologic/Psychiatric: Alert, Oriented x3 Skin: Normal Color, Warm/Dry Lymphatic: No Adenopathy Assessment/Plan Assessment/Plan Assessment/Plan Status post lap hand assisted right colon resection Anemia severe and symptomatic requiring iron infusions prior to surgery DVT right leg recently received Lovenox bridge prior to surgery was on heparin drip post operatively but stopped early this morning due to bleeding per rectum Gi Bleed likely lower due to anastamosis. advance diet start back on heparin drip due to dvt may need to stop heparin repeat labs in am. IS Supervisory-Addendum Brief Verification & Attestation Participated in pt care: history, MDM, physical Personally performed: exam, history, MDM, supervision of care Care discussed with: Medical Student Procedures: n/a Results interpretation: Verified all documentation Verification and Attestation of Medical Student E/M Service A medical student performed and documented this service in my presence. I reviewed and verified all information documented by the medical student and made modifications to such information, when appropriate. I personally performed the physical exam and medical decision making. Arabella Nickerson, Apr 11, 2022,17:26 SAIRA OSEGUERA Apr 11, 2022 07:24 ARABELLA NICKERSON DO Apr 12, 2022 17:26
[2022-04-11 07:53] VITALS: BP 136/87
[2022-04-11] MEDS: dilTIAZem120 MG (CARDIZEM CD) CAP PO SCH (09:00)
[2022-04-11] MEDS: HYDROcodone/APAP 5 MG/325 MG (LORTAB) TAB PO PRN ×2 (09:00→18:24)
[2022-04-11] MEDS ORDERED: IRON SUCROSE 200 MG/10 ML (VENOFER) VIAL IV NR (10:30)
--- NOTE | 2022-04-11 10:53 | Physical Therapy Daily Note ---
PT Daily Note-Current Subjective Patient is very agreeable to participate with PT. Spouse present. Pain Section J - Health Conditions 1. Rarely or not at all 2. Occasionally 3. Frequently 4. Almost constantly 8. Unable to answer Pain Effect on Sleep: 1 Pain Interference with Therapy: 1 Pain Interference w/Day-to-Day: 1 Mental Status Patient Orientation: Normal For Age Transfers SCALE: Activities may be completed with or without assistive devices. 0-Yqycoiabie-hkanucm completes the activity by him/herself with no assistance from a helper. 5-Set-up or Clean-up Assistance-helper sets up or cleans up; patient completes activity. [place] assists only prior to or following the activity. 4-Supervision or Touching Assistance-helper provides verbal cues and/or touching/steadying and/or contact guard assistance as patient completes activity. Assistance may be provided throughout the activity or intermittently. 3-Partial/Moderate Assistance-helper does LESS THAN HALF the effort. [place]atham lifts, holds or supports trunk or limbs, but provides less than half the effort. 2-Substantial/Maximal Assistance-helper does MORE THAN HALF the effort. [place] lifts or holds trunk or limbs and provides more than half the effort. 8-Nwqlblpju-wwttqk does ALL the effort. Patient does none of the effort to complete the activity. Or, the assistance of 2 or more helpers is required for the patient to complete the activity. If activity was not attempted, code reason: 7-Patient Refused. 9-Not Applicable-not attempted and the patient did not perform the activity before the current illness, exacerbation or injury. 10-Not Attempted due to Environmental Limitations-(lack of equipment, weather restraints, etc.). 88-Not Attempted due to Medical Conditions or Safety Concerns. Sit to Stand (QC): 5 Weight Bearing Right Lower Extremity: Right Weight Bearing/Tolerated Left Lower Extremity: Left Weight Bearing/Tolerated Gait Training Distance: 200' Walk 10 feet (QC): 5 Walk 50 ft with 2 Turns(QC): 5 Walk 150 ft (QC): 5 Gait Assistive Device: FWW slow, steady, functional gait sequence Assessment PT instructed patient and spouse to ambulate PRN in hallway with nursing or spouse. RN notified. Patient progressing well but continues to require encouragement to ambulate. Education with patient and spouse to increasing activity to help with bowel recovery. Both voice understanding. PT Mcc Goals Transformation Manager Goals PT Transformation Manager Goals Time Frame: Apr 22, 2022 Roll Left & Right (QC): 6 Sit to Lying (QC): 6 Lying-Sitting on Side/Bed(QC): 6 Sit to Stand (QC): 6 Chair/Fhg-go-Bqlbg Xfer(QC): 6 Toilet Transfer (QC): 6 Does the Patient Walk: No and Walking Goal IS indicated Walk 10 feet (QC): 6 Walk 50ft with 2 Turns (QC): 6 Walk 150 ft (QC): 6 PT Plan Treatment/Plan Treatment Plan: Continue Plan of Care Treatment Duration: Apr 22, 2022 Frequency: 6 times per week Estimated Hrs Per Day: .25 hour per day Patient and/or Family Agrees t: Yes Time Time In: 935 Time Out: 945 DATE: Apr 11, 2022 Total Billed Treatment Time: 10 Total Billed Treatment 1 visit FA 10 min EMY [place] PT Apr 11, 2022 10:53
--- NOTE | 2022-04-11 11:19 | Progress Note ---
[facility] 04/11/22 1119: Subjective Date Seen by a Provider: Apr 11, 2022 Time Seen by a Provider: 10:00 Subjective/Events-last exam Lilli is an 86 y F with history of anemia and GI bleed requiring iron transfusion. She is s/p partial colectomy for colon mass on 04/07/[address] Blake. She had hematochezia on 04/08 and heparin was discontinued. Today she reports feeling improved. She has not had any further episodes of hematochezia, she is still passing gas and urinating without issue. Notes some pain and tenderness of the abdomen near the incisions up to a 7/10 when she stands but quickly improves. She is ambulating and tolerating a clear diet. Hgb is stable at 8.2 today. Review of Systems General: Appetite Pulmonary: No Dyspnea, No Cough Cardiovascular: No: Chest Pain Gastrointestinal: Abdominal Pain (incisional); No: Nausea Genitourinary: No Dysuria, No Frequency Objective Exam Last Set of Vital Signs Vital Signs Date Time Temp Pulse Resp B/P (MAP) Pulse Ox O2 Delivery O2 Flow Rate FiO2 04/11/22 08:45 Room Air 04/11/22 07:53 36.6 96 17 136/87 (103) 97 04/08/22 19:25 92 04/08/22 11:08 3.00 Capillary Refill : I&O Intake and Output 04/11/22 00:00 Intake Total 2040 ml Output Total 1800 ml Balance 240 ml Intake Oral 2040 ml Output Urine Total 1450 ml Urine/Stool Mix 350 ml General: Alert, Oriented X3, Cooperative, No Acute Distress HEENT: PERRLA, EOMI, Mucous Memb Moist/Hurricane Neck: Supple, No JVD Lungs: Clear to Auscultation, Normal Air Movement Heart: Normal S1, Normal S2, Other (irreg irreg rate) Abdomen: Normal Bowel Sounds, Soft, Other (incisions clean, dry and intact with some TTP) Extremities: Other (right LE 2+ edema, left LE 1+ edema) Skin: No Significant Lesion Psych/Mental Status: Mental Status NL, Mood NL Results Lab Laboratory Tests 04/11/22 05:30: White Blood Count 10.8, Red Blood Count 3.04L, Hemoglobin 8.2L, Hematocrit 28L, Mean Corpuscular Volume 91, Mean Corpuscular Hemoglobin 27, Mean Corpuscular Hemoglobin Concent 30L, Red Cell Distribution Width , Platelet Count 289, Mean Platelet Volume 10.1, Immature Granulocyte % (Auto) 1, Neutrophils (%) (Auto) 71, Lymphocytes (%) (Auto) 18, Monocytes (%) (Auto) 8, Eosinophils (%) (Auto) 2, Basophils (%) (Auto) 0, Neutrophils # (Auto) 7.7, Lymphocytes # (Auto) 1.9, Monocytes # (Auto) 0.9, Eosinophils # (Auto) 0.2, Basophils # (Auto) 0.0, Immature Granulocyte # (Auto) 0.1, Sodium Level 136, Potassium Level 3.6, Chloride Level 104, Carbon Dioxide Level 25, Anion Gap 7, Blood Urea Nitrogen 11, Creatinine 0.74, Estimat Glomerular Filtration Rate 79, BUN/Creatinine Ratio 15, Glucose Level 92, Calcium Level 8.6, Corrected Calcium 9.6, Total Bilirubin 0.4, Aspartate Amino Transf (AST/SGOT) 23, Alanine Aminotransferase (ALT/SGPT) 16, Alkaline Phosphatase 74, Total Protein 5.7L, Albumin 2.8L Microbiology 04/07/22 MRSA Screen - Final, Complete MRSA not isolated Assessment/Plan Assessment/Plan Assess & Plan/Chief Complaint Assessment: Status post uncomplicated partial colectomy by Dr. Blake due to colon mass adenocarcinoma postop day number 4 Anemia severe and symptomatic requiring iron infusions prior to surgery Episode of hematochezia and decreased hgb so may need transfusion Recent GI bleed 3 weeks ago requiring transfusions Fatigue Afib chronic Diastolic HF Hypothyroidism HTN HLD Hx DVT right leg recently received Lovenox bridge prior to surgery was on heparin drip post operatively but stopped due to bleeding per rectum Chronic back pain Neuropathy Gout Plan: Iron infusion before discharge given persistently low hgb Monitor hemoglobin and transfuse as needed Continue to hold heparin Supportive care Pain control Incentive spirometer Ambulate LING SPEARS DO 04/12/22 0434: Objective Exam General: Alert, Oriented X3, Cooperative, No Acute Distress Lungs: Clear to Auscultation, Normal Air Movement Psych/Mental Status: Mental Status NL, Mood NL Assessment/Plan Assessment/Plan Assess & Plan/Chief Complaint Heparin restarted Supportive care Supervisory-Addendum Brief Verification & Attestation Participated in pt care: history, MDM, physical Personally performed: exam, history, MDM, supervision of care Care discussed with: Medical Student Procedures: n/a Results interpretation: Verified all documentation Verification and Attestation of Medical Student E/M Service A medical student performed and documented this service in my presence. I reviewed and verified all information documented by the medical student and made modifications to such information, when appropriate. I personally performed the physical exam and medical decision making. Ling Spears, Apr 12, 2022,04:34 WILMA GALICIA Apr 11, 2022 11:19 LING SPEARS DO Apr 12, 2022 04:34
[2022-04-11 11:30] VITALS: BP 122/81
[2022-04-11 13:21] VITALS: BP 122/81
[2022-04-11 15:27] VITALS: BP 138/84
[2022-04-11] MEDS ORDERED: HEParin 1000 UNIT/ML (10ML VIAL) FOR BOLUS IV SCH (16:15)
[2022-04-11] MEDS ORDERED: HEParin DRIP 25000 UNIT/500ML 500 ML IV SCH (16:15)
[2022-04-11 16:40] LABS: HEMATOCRIT 28 % (35-52); HEMOGLOBIN 8.4 g/dL (11.5-16.0); MEAN CORPUSCULAR HEMOGLOBIN 27 pg (25-34); MEAN CORPUSCULAR HGB CONC 30 g/dL (32-36); MEAN CORPUSCULAR VOLUME 90 fL (80-99); MEAN PLATELET VOLUME 9.9 fL (9.0-12.2); PLATELET COUNT 304 10^3/uL (130-400); WHITE BLOOD COUNT 11.6 10^3/uL (4.3-11.0)
[2022-04-11 16:56] LABS: INR 1.1 (0.8-1.4); PROTHROMBIN TIME PATIENT 14.5 SEC (12.2-14.7)
[2022-04-11] MEDS: LACTATED RINGERS 1,000 ML IV PRN (18:20)
[2022-04-11 20:59] VITALS: BP 118/79
[2022-04-12] VITALS: BP 134/64
[2022-04-12] MEDS: HYDROcodone/APAP 5 MG/325 MG (LORTAB) TAB PO PRN (03:13)
[2022-04-12 05:52] LABS: BASOPHILS % (AUTO) 0 % (0-10); EOSINOPHILS # (AUTO) 0.2 10^3/uL (0.0-0.3); EOSINOPHILS % (AUTO) 2 % (0-10); HEMATOCRIT 27 % (35-52); HEMOGLOBIN 8.1 g/dL (11.5-16.0); LYMPHOCYTES # (AUTO) 1.7 10^3/uL (1.0-4.0); LYMPHOCYTES % (AUTO) 17 % (12-44); MEAN CORPUSCULAR HEMOGLOBIN 27 pg (25-34); MEAN CORPUSCULAR HGB CONC 30 g/dL (32-36); MEAN CORPUSCULAR VOLUME 90 fL (80-99); MEAN PLATELET VOLUME 10.6 fL (9.0-12.2); MONOCYTES # (AUTO) 0.9 10^3/uL (0.0-1.0); MONOCYTES % (AUTO) 9 % (0-12); NEUTROPHILS # (AUTO) 7.2 10^3/uL (1.8-7.8); NEUTROPHILS % (AUTO) 70 % (42-75); PLATELET COUNT 316 10^3/uL (130-400); WHITE BLOOD COUNT 10.2 10^3/uL (4.3-11.0)
[2022-04-12] MEDS: LEVOTHYROXINE 75 MCG (LEVOTHROID) TABLET PO SCH (06:00)
[2022-04-12] MEDS: CYANOCOBALAMIN 1,000 MCG (VITAMIN B-12) TABLET PO SCH (06:00)
[2022-04-12] MEDS: PANTOPRAZOLE 40 MG (PROTONIX) TAB PO SCH (06:00)
[2022-04-12 06:22] LABS: ALBUMIN 2.8 GM/DL (3.2-4.5); BILIRUBIN,TOTAL 0.4 MG/DL (0.1-1.0); CALCIUM 8.6 MG/DL (8.5-10.1); CREATININE SERUM 0.74 MG/DL (0.60-1.30); POTASSIUM 3.6 MMOL/L (3.6-5.0); TOTAL PROTEIN 5.8 GM/DL (6.4-8.2)
--- NOTE | 2022-04-12 06:43 | Progress Note - Surgery ---
ONEILL-SAIRA LOMELI 04/12/22 0643: Subjective Date Seen by a Provider: Apr 12, 2022 Time Seen by a Provider: 08:00 Subjective/Events-last exam Upon follow up for extended R colectomy for colon cancer, post-op day 5, Lilli appears comfortable and is laying supine in bed. She states that she is passing flatus and that she thinks she will have a bowel movement soon. She further reports that she is tolerating soft foods, and is not experiencing any nausea or vomiting. She states that her pain is diminished from yesterday, but is cloth desizing range tender upon movement. Lilli states she has been working with PT and was able to ambulate yesterday with some assistance. Surgical incisions are intact, dry, and without purulence. Lilli continues to dutifully use her incentive spirometer. Review of Systems General: No Chills, No Night Sweats; Fatigue, Malaise HEENT: No Head Aches, No Visual Changes Pulmonary: No Dyspnea, No Cough Cardiovascular: No: Chest Pain, Palpitations Gastrointestinal: Abdominal Pain; No: Nausea, Vomiting Genitourinary: No Dysuria, No Frequency Musculoskeletal: No: neck pain, shoulder pain Neurological: Weakness; No: Numbness Focused Exam Respiratory: Chest Non Tender, Lungs Clear, No Accessory Muscle Use, No R espiratory Distress, Decreased Breath Sounds Cardiovascular: Regular Rate, Rhythm, No Edema, No Gallop, No JVD, No Murmur, Normal Peripheral Pulses Peripheral Pulses: 2+ Radial Pulses (L) Skin: normal color, warm/dry Objective Exam Vital Signs Date Time Temp Pulse Resp B/P (MAP) Pulse Ox O2 Delivery O2 Flow Rate FiO2 04/12/22 00:00 35.5 85 19 134/64 (87) 93 Room Air 04/11/22 20:59 36.9 84 20 118/79 (92) 95 Room Air 04/11/22 20:00 Room Air 04/11/22 19:09 94 Room Air 04/11/22 15:27 36.8 72 18 138/84 (102) 93 Room Air 04/11/22 13:21 36.6 84 94 21 04/11/22 11:30 36.6 84 16 122/81 (95) 94 Room Air 04/11/22 08:45 Room Air 04/11/22 08:00 Room Air 04/11/22 07:53 36.6 96 17 136/87 (103) 97 Room Air I & O 04/12/22 07:00 Intake Total 1420 ml Output Total 1900 ml Balance -480 ml Capillary Refill : General Appearance: No Apparent Distress, Obese HEENT: PERRL/EOMI Neck: Normal Inspection, Non Tender Respiratory: Chest Non Tender, No Accessory Muscle Use, No Respiratory Distress Cardiovascular: Regular Rate, Rhythm, No JVD Peripheral Pulses: 2+ Radial Pulses (R), 2+ Radial Pulses (L) Gastrointestinal: soft, tenderness (around surgical wounds), other (midline surgical wound, dry, pink, and intact with no drainage) Extremity: No Calf Tenderness, Pedal Edema (B/L +1 pitting edema ), Swelling (Calf swelling, 2+) Neurologic/Psychiatric: Alert, Oriented x3 Skin: Normal Color, Warm/Dry Lymphatic: No Adenopathy Results Lab Laboratory Tests 04/11/22 16:30: White Blood Count 11.6H, Red Blood Count 3.11L, Hemoglobin 8.4L, Hematocrit 28L, Mean Corpuscular Volume 90, Mean Corpuscular Hemoglobin 27, Mean Corpuscular Hemoglobin Concent 30L, Red Cell Distribution Width , Platelet Count 304, Mean Platelet Volume 9.9, Prothrombin Time 14.5, INR Comment 1.1, Activated Partial Thromboplast Time 32 04/11/22 22:45: Activated Partial Thromboplast Time 67H 04/12/22 05:20: White Blood Count 10.2, Red Blood Count 3.00L, Hemoglobin 8.1L, Hematocrit 27L, Mean Corpuscular Volume 90, Mean Corpuscular Hemoglobin 27, Mean Corpuscular Hemoglobin Concent 30L, Red Cell Distribution Width , Platelet Count 316, Mean Platelet Volume 10.6, Activated Partial Thromboplast Time 111H, Immature Granulocyte % (Auto) 2, Neutrophils (%) (Auto) 70, Lymphocytes (%) (Auto) 17, Monocytes (%) (Auto) 9, Eosinophils (%) (Auto) 2, Basophils (%) (Auto) 0, Neutrophils # (Auto) 7.2, Lymphocytes # (Auto) 1.7, Monocytes # (Auto) 0.9, Eosinophils # (Auto) 0.2, Basophils # (Auto) 0.0, Immature Granulocyte # (Auto) 0.2H, Sodium Level 137, Potassium Level 3.6, Chloride Level 105, Carbon Dioxide Level 23, Anion Gap 9, Blood Urea Nitrogen 12, Creatinine 0.74, Estimat Glomerular Filtration Rate 79, BUN/Creatinine Ratio 16, Glucose Level 107H, Calcium Level 8.6, Corrected Calcium 9.6, Total Bilirubin 0.4, Aspartate Amino Transf (AST/SGOT) 24, Alanine Aminotransferase (ALT/SGPT) 18, Alkaline Phosphatase 81, Total Protein 5.8L, Albumin 2.8L Microbiology 04/07/22 MRSA Screen - Final, Complete MRSA not isolated Assessment/Plan Assessment/Plan Assessment/Plan Heparin restarted Supportive care Assessment: Status post lap hand assisted right colon resection Anemia severe and symptomatic requiring iron infusions prior to surgery Hx DVT right leg recently received Lovenox bridge prior to surgery was on heparin drip post operatively but stopped early this morning due to bleeding per rectum Gi Bleed likely lower due to anastamosis. Plan: Monitor hemoglobin transfuse as needed. Higher risk due to DVT right leg had to stop heparin drip Supportive care Pain control Incentive spirometer. On Protonix Plan Ambulate Strengthen Monitor hemoglobin Consider admitting patient to Inpatient Rehab to better accomplish ADLs Consider D/C heparin and start PO eliquis given stable hemoglobin ARABELLA NICKERSON DO 04/12/22 1730: Subjective Subjective/Events-last exam doing well. hgb stable. Tolerating diet. Deneis any new complaints. no bleeding from rectum. Objective Exam General Appearance: No Apparent Distress, Obese HEENT: PERRL/EOMI, Normal ENT Inspection Neck: Normal Inspection, Non Tender Respiratory: Chest Non Tender, No Accessory Muscle Use, No Respiratory Distress Cardiovascular: Regular Rate, Rhythm, No JVD Gastrointestinal: soft, tenderness (incisional c/d/i no signs of infection) Extremity: No Calf Tenderness, Pedal Edema (B/L +1 pitting edema ) Neurologic/Psychiatric: Alert, Oriented x3 Skin: Normal Color, Warm/Dry Lymphatic: No Adenopathy Assessment/Plan Assessment/Plan Assessment/Plan Status post lap hand assisted right colon resection Anemia severe and symptomatic requiring iron infusions prior to surgery DVT right leg recently received Lovenox bridge prior to surgery was on heparin drip post operatively but stopped early this morning due to bleeding per rectum Gi Bleed likely lower due to anastamosis. Stop heparin and start eliquis diet as tolerates likely dc home Supervisory-Addendum Brief Verification & Attestation Participated in pt care: history, MDM, physical Personally performed: exam, history, MDM, supervision of care Care discussed with: Medical Student Procedures: n/a Results interpretation: Verified all documentation Verification and Attestation of Medical Student E/M Service A medical student performed and documented this service in my presence. I reviewed and verified all information documented by the medical student and made modifications to such information, when appropriate. I personally performed the physical exam and medical decision making. Arabella Nickerson, Apr 12, 2022,17:28 SAIRA OSEGUERA Apr 12, 2022 06:43 ARABELLA NICKERSON DO Apr 12, 2022 17:30
[2022-04-12 08:25] VITALS: BP 142/88
[2022-04-12] MEDS: dilTIAZem120 MG (CARDIZEM CD) CAP PO SCH (08:42)
[2022-04-12] MEDS ORDERED: APIXABAN 5 MG (ELIQUIS) TABLET PO SCH (09:00)
[2022-04-12] MEDS ORDERED: ACHD5005 PO (10:31)
[2022-04-12] MEDS ORDERED: APIX5TAB PO (10:31)
--- NOTE | 2022-04-12 10:32 | Discharge Summary ---
Diagnosis/Chief Complaint Date of Admission Apr 07, 2022 at 09:45 Date of Discharge Discharge Date: Apr 12, 2022 Discharge Diagnosis Assessment: Status post uncomplicated partial colectomy by Dr. Blake due to colon mass adenocarcinoma postop day number 4 Anemia severe and symptomatic requiring iron infusions prior to surgery Episode of hematochezia and decreased hgb so may need transfusion Recent GI bleed 3 weeks ago requiring transfusions Fatigue Afib chronic Diastolic HF Hypothyroidism HTN HLD Hx DVT right leg recently received Lovenox bridge prior to surgery was on heparin drip post operatively but stopped due to bleeding per rectum Chronic back pain Neuropathy Gout Plan: Iron infusion before discharge given persistently low hgb Monitor hemoglobin and transfuse as needed Continue to hold heparin Supportive care Pain control Incentive spirometer Ambulate Discharge Summary Discharge Physical Examination Allergies: Coded Allergies: No Known Drug Allergies (Verified , 04/06/22) Vitals & I&Os Vital Signs Date Time Temp Pulse Resp B/P (MAP) Pulse Ox O2 Delivery O2 Flow Rate FiO2 04/12/22 13:45 35.4 87 18 142/88 97 Room Air 3.00 04/11/22 13:21 21 General Appearance: Alert, Oriented X3, Cooperative Respiratory: Clear to Auscultation Cardiovascular: Regular Rate Psych/Mental Status: Mental Status NL Hospital Course Was the Problem List Reviewed?: Yes Lilli is an 86 y F with history of anemia and GI bleed requiring iron transfusion. She is s/p extended right colectomy for colon cancer on 04/07/[address] Blake. She had hematochezia on 04/08 and heparin was discontinued. She has some pain and tenderness of the abdomen near the incisions up to a 7/10 when she stands that quickly improves. She is ambulating and tolerating a soft diet. Hgb was persistently low around 8.1 during her stay so she was given an iron transfusion. She had no further episodes of hematochezia. Patient has not had a BM since 04/08 but is passing plenty of flatus and urinating without issue. She is started on PO Eliquis for home care of known right leg DVT. Her abdominal incisions were clean, dry and intact throughout her stay. On exam she has stable bilateral lower extremity edema up to 2+ on right. Her is bedside her entire stay. She is comfortable going home without rehab treatment and just with the supportive care of her . Dr. Benitez and Dr. Blake both agree she will be able to go home without rehab services. Labs (last 24 hrs) Laboratory Tests 04/07/22 16:46: White Blood Count 12.7H, Red Blood Count 3.78L, Hemoglobin 10.0L, Hematocrit 33L , Mean Corpuscular Volume 88, Mean Corpuscular Hemoglobin 27, Mean Corpuscular Hemoglobin Concent 30L, Red Cell Distribution Width 28.6H, Platelet Count 257, Mean Platelet Volume 10.2, Immature Granulocyte % (Auto) 1, Neutrophils (%) (Auto) 94H, Lymphocytes (%) (Auto) 4L, Monocytes (%) (Auto) 1, Eosinophils (%) (Auto) 0, Basophils (%) (Auto) 0, Neutrophils # (Auto) 12.0H, Lymphocytes # (Auto) 0.5L, Monocytes # (Auto) 0.2, Eosinophils # (Auto) 0.0, Basophils # (Auto) 0.0, Immature Granulocyte # (Auto) 0.1, Neutrophils % (Manual) 94, Lymphocytes % (Manual) 3, Monocytes % (Manual) 1, Band Neutrophils 2, Hy pochromasia SLIGHT, Microcytosis SLIGHT, Prothrombin Time 13.9, INR Comment 1.0, Activated Partial Thromboplast Time 31 04/07/22 21:58: Activated Partial Thromboplast Time 161*H 04/08/22 05:22: White Blood Count 13.2H, Red Blood Count 3.49L, Hemoglobin 9.2L, Hematocrit 31L, Mean Corpuscular Volume 89, Mean Corpuscular Hemoglobin 26, Mean Corpuscular Hemoglobin Concent 30L, Red Cell Distribution Width 28.9H, Platelet Count 390, Mean Platelet Volume 10.9, Immature Granulocyte % (Auto) 1, Neutrophils (%) (Auto) 86H, Lymphocytes (%) (Auto) 8L, Monocytes (%) (Auto) 6, Eosinophils (%) (Auto) 0, Basophils (%) (Auto) 0, Neutrophils # (Auto) 11.3H, Lymphocytes # (Auto) 1.0, Monocytes # (Auto) 0.8, Eosinophils # (Auto) 0.0, Basophils # (Auto) 0.0, Immature Granulocyte # (Auto) 0.1, Activated Partial Thromboplast Time 53H, Sodium Level 138, Potassium Level 4.1, Chloride Level 107, Carbon Dioxide Level 19L, Anion Gap 12, Blood Urea Nitrogen 11, Creatinine 0.86, Estimat Glomerular Filtration Rate 66, BUN/Creatinine Ratio 13, Glucose Level 152H, Calcium Level 8.8, Corrected Calcium 9.5, Magnesium Level 1.7, Total Bilirubin 0.3, Aspartate Amino Transf (AST/SGOT) 57H, Alanine Aminotransferase (ALT/SGPT) 36, Alkaline Phosphatase 77, Total Protein 6.1L, Albumin 3.1L 04/08/22 12:30: Activated Partial Thromboplast Time 128*H 04/08/22 18:15: Activated Partial Thromboplast Time 67H 04/09/22 01:37: Activated Partial Thromboplast Time 97H 04/09/22 05:48: White Blood Count 12.1H, Red Blood Count 2.90L, Hemoglobin 7.9L, Hematocrit 27L, Mean Corpuscular Volume 92, Mean Corpuscular Hemoglobin 27, Mean Corpuscular Hemoglobin Concent 30L, Red Cell Distribution Width , Platelet Count 312, Mean Platelet Volume 10.6, Immature Granulocyte % (Auto) 1, Neutrophils (%) (Auto) 73, Lymphocytes (%) (Auto) 17, Monocytes (%) (Auto) 9, Eosinophils (%) (Auto) 0, Basophils (%) (Auto) 0, Neutrophils # (Auto) 8.8H, Lymphocytes # (Auto) 2.1, Monocytes # (Auto) 1.1H, Eosinophils # (Auto) 0.1, Basophils # (Auto) 0.0, Immature Granulocyte # (Auto) 0.1, Sodium Level 137, Potassium Level 3.8, Chloride Level 108H, Carbon Dioxide Level 18L, Anion Gap 11, Blood Urea Nitrogen 12, Creatinine 0.82, Estimat Glomerular Filtration Rate 70, BUN/Creatinine Ratio 15, Glucose Level 98, Calcium Level 8.7, Corrected Calcium 9.6, Total Bilirubin 0.3, Aspartate Amino Transf (AST/SGOT) 38H, Alanine Aminotransferase (ALT/SGPT) 25, Alkaline Phosphatase 62, Total Protein 5.5L, Albumin 2.9L 04/09/22 15:24: Hemoglobin 8.5L, Hematocrit 29L 04/10/22 05:05: White Blood Count 12.5H, Red Blood Count 2.97L, Hemoglobin 8.1L, Hematocrit 27L, Mean Corpuscular Volume 91, Mean Corpuscular Hemoglobin 27, Mean Corpuscular H emoglobin Concent 30L, Red Cell Distribution Width , Platelet Count 297, Mean Platelet Volume 10.4, Immature Granulocyte % (Auto) 1, Neutrophils (%) (Auto) 67, Lymphocytes (%) (Auto) 22, Monocytes (%) (Auto) 9, Eosinophils (%) (Auto) 1, Basophils (%) (Auto) 0, Neutrophils # (Auto) 8.4H, Lymphocytes # (Auto) 2.8, Monocytes # (Auto) 1.2H, Eosinophils # (Auto) 0.1, Basophils # (Auto) 0.0, Immature Granulocyte # (Auto) 0.1, Sodium Level 137, Potassium Level 3.8, Chloride Level 106, Carbon Dioxide Level 23, Anion Gap 8, Blood Urea Nitrogen 12, Creatinine 0.81, Estimat Glomerular Filtration Rate 71, BUN/Creatinine Ratio 15, Glucose Level 94, Calcium Level 8.6, Corrected Calcium 9.5, Total Bilirubin 0.5, Aspartate Amino Transf (AST/SGOT) 25, Alanine Aminotransferase (ALT/SGPT) 19, Alkaline Phosphatase 66, Total Protein 5.7L, Albumin 2.9L 04/11/22 05:30: White Blood Count 10.8, Red Blood Count 3.04L, Hemoglobin 8.2L, Hematocrit 28L, Mean Corpuscular Volume 91, Mean Corpuscular Hemoglobin 27, Mean Corpuscular Hemoglobin Concent 30L, Red Cell Distribution Width , Platelet Count 289, Mean Platelet Volume 10.1, Immature Granulocyte % (Auto) 1, Neutrophils (%) (Auto) 71, Lymphocytes (%) (Auto) 18, Monocytes (%) (Auto) 8, Eosinophils (%) (Auto) 2, Basophils (%) (Auto) 0, Neutrophils # (Auto) 7.7, Lymphocytes # (Auto) 1.9, Monocytes # (Auto) 0.9, Eosinophils # (Auto) 0.2, Basophils # (Auto) 0.0, Immature Granulocyte # (Auto) 0.1, Sodium Level 136, Potassium Level 3.6, Chloride Level 104, Carbon Dioxide Level 25, Anion Gap 7, Blood Urea Nitrogen 11, Creatinine 0.74, Estimat Glomerular Filtration Rate 79, BUN/Creatinine Ratio 15, Glucose Level 92, Calcium Level 8.6, Corrected Calcium 9.6, Total Bilirubin 0.4, Aspartate Amino Transf (AST/SGOT) 23, Alanine Aminotransferase (ALT/SGPT) 16, Alkaline Phosphatase 74, Total Protein 5.7L, Albumin 2.8L 04/11/22 16:30: White Blood Count 11.6H, Red Blood Count 3.11L, Hemoglobin 8.4L, Hematocrit 28L, Mean Corpuscular Volume 90, Mean Corpuscular Hemoglobin 27, Mean Corpuscular Hemoglobin Concent 30L, Red Cell Distribution Width , Platelet Count 304, Mean Platelet Volume 9.9, Prothrombin Time 14.5, INR Comment 1.1, Activated Partial Thromboplast Time 32 04/11/22 22:45: Activated Partial Thromboplast Time 67H 04/12/22 05:20: White Blood Count 10.2, Red Blood Count 3.00L, Hemoglobin 8.1L, Hematocrit 27L, Mean Corpuscular Volume 90, Mean Corpuscular Hemoglobin 27, Mean Corpuscular Hemoglobin Concent 30L, Red Cell Distribution Width , Platelet Count 316, Mean Platelet Volume 10.6, Immature Granulocyte % (Auto) 2, Neutrophils (%) (Auto) 70, Lymphocytes (%) (Auto) 17, Monocytes (%) (Auto) 9, Eosinophils (%) (Auto) 2, Basophils (%) (Auto) 0, Neutrophils # (Auto) 7.2, Lymphocytes # (Auto) 1.7, Monocytes # (Auto) 0.9, Eosinophils # (Auto) 0.2, Basophils # (Auto) 0.0, Immature Granulocyte # (Auto) 0.2H, Activated Partial Thromboplast Time 111H, Sodium Level 137, Potassium Level 3.6, Chloride Level 105, Carbon Dioxide Level 23, Anion Gap 9, Blood Urea Nitrogen 12, Creatinine 0.74, Estimat Glomerular Filtration Rate 79, BUN/Creatinine Ratio 16, Glucose Level 107H, Calcium Level 8.6, Corrected Calcium 9.6, Total Bilirubin 0.4, Aspartate Amino Transf (AST/SGOT) 24, Alanine Aminotransferase (ALT/SGPT) 18, Alkaline Phosphatase 81, Total Protein 5.8L, Albumin 2.8L Microbiology 04/07/22 MRSA Screen - Final, Complete MRSA not isolated Pending Labs Microbiology Date/Time Source Procedure Growth Status 04/07/22 10:05 Nasal MRSA Screen - Final MRSA not isolated Complete Laboratory Tests 04/07/22 16:46: White Blood Count 12.7, Red Blood Count 3.78, Hemoglobin 10.0, Hematocrit 33, Mean Corpuscular Volume 88, Mean Corpuscular Hemoglobin 27, Mean Corpuscular Hemoglobin Concent 30, Red Cell Distribution Width 28.6, Platelet Count 257, Mean Platelet Volume 10.2, Immature Granulocyte % (Auto) 1, Neutrophils (%) (Auto) 94, Lymphocytes (%) (Auto) 4, Monocytes (%) (Auto) 1, Eosinophils (%) (Auto) 0, Basophils (%) (Auto) 0, Neutrophils # (Auto) 12.0, Lymphocytes # (Auto) 0.5, Monocytes # (Auto) 0.2, Eosinophils # (Auto) 0.0, Basophils # (Auto) 0.0, Immature Granulocyte # (Auto) 0.1, Neutrophils % (Manual) 94, Lymphocytes % (Manual) 3, Monocytes % (Manual) 1, Band Neutrophils 2, Hypochromasia SLIGHT, Microcytosis SLIGHT, Prothrombin Time 13.9, INR Comment 1.0, Activated Partial Thromboplast Time 31 04/07/22 21:58: Activated Partial Thromboplast Time 161 04/08/22 05:22: White Blood Count 13.2, Red Blood Count 3.49, Hemoglobin 9.2, Hematocrit 31, Mean Corpuscular Volume 89, Mean Corpuscular Hemoglobin 26, Mean Corpuscular Hemoglobin Concent 30, Red Cell Distribution Width 28.9, Platelet Count 390, Mean Platelet Volume 10.9, Immature Granulocyte % (Auto) 1, Neutrophils (%) (Auto) 86, Lymphocytes (%) (Auto) 8, Monocytes (%) (Auto) 6, Eosinophils (%) (Auto) 0, Basophils (%) (Auto) 0, Neutrophils # (Auto) 11.3, Lymphocytes # (Auto) 1.0, Monocytes # (Auto) 0.8, Eosinophils # (Auto) 0.0, Basophils # (Auto) 0.0, Immature Granulocyte # (Auto) 0.1, Activated Partial Thromboplast Time 53, Sodium Level 138, Potassium Level 4.1, Chloride Level 107, Carbon Dioxide Level 19, Anion Gap 12, Blood Urea Nitrogen 11, Creatinine 0.86, Estimat Glomerular Filtration Rate 66, BUN/Creatinine Ratio 13, Glucose Level 152, Calcium Level 8.8, Corrected Calcium 9.5, Magnesium Level 1.7, Total Bilirubin 0.3, Aspartate Amino Transf (AST/SGOT) 57, Alanine Aminotransferase (ALT/SGPT) 36, Alkaline Phosphatase 77, Total Protein 6.1, Albumin 3.1 04/08/22 12:30: Activated Partial Thromboplast Time 128 04/08/22 18:15: Activated Partial Thromboplast Time 67 04/09/22 01:37: Activated Partial Thromboplast Time 97 04/09/22 05:48: White Blood Count 12.1, Red Blood Count 2.90, Hemoglobin 7.9, Hematocrit 27, Mean Corpuscular Volume 92, Mean Corpuscular Hemoglobin 27, Mean Corpuscular Hemoglobin Concent 30, Red Cell Distribution Width , Platelet Count 312, Mean Platelet Volume 10.6, Immature Granulocyte % (Auto) 1, Neutrophils (%) (Auto) 73, Lymphocytes (%) (Auto) 17, Monocytes (%) (Auto) 9, Eosinophils (%) (Auto) 0, Basophils (%) (Auto) 0, Neutrophils # (Auto) 8.8, Lymphocytes # (Auto) 2.1, Monocytes # (Auto) 1.1, Eosinophils # (Auto) 0.1, Basophils # (Auto) 0.0, Immature Granulocyte # (Auto) 0.1, Sodium Level 137, Potassium Level 3.8, Chloride Level 108, Carbon Dioxide Level 18, Anion Gap 11, Blood Urea Nitrogen 12, Creatinine 0.82, Estimat Glomerular Filtration Rate 70, BUN/Creatinine Ratio 15, Glucose Level 98, Calcium Level 8.7, Corrected Calcium 9.6, Total Bilirubin 0.3, Aspartate Amino Transf (AST/SGOT) 38, Alanine Aminotransferase (ALT/SGPT) 25, Alkaline Phosphatase 62, Total Protein 5.5, Albumin 2.9 04/09/22 15:24: Hemoglobin 8.5, Hematocrit 29 04/10/22 05:05: White Blood Count 12.5, Red Blood Count 2.97, Hemoglobin 8.1, Hematocrit 27, Mean Corpuscular Volume 91, Mean Corpuscular Hemoglobin 27, Mean Corpuscular Hemoglobin Concent 30, Red Cell Distribution Width , Platelet Count 297, Mean Platelet Volume 10.4, Immature Granulocyte % (Auto) 1, Neutrophils (%) (Auto) 67, Lymphocytes (%) (Auto) 22, Monocytes (%) (Auto) 9, Eosinophils (%) (Auto) 1, Basophils (%) (Auto) 0, Neutrophils # (Auto) 8.4, Lymphocytes # (Auto) 2.8, Monocytes # (Auto) 1.2, Eosinophils # (Auto) 0.1, Basophils # (Auto) 0.0, Immature Granulocyte # (Auto) 0.1, Sodium Level 137, Potassium Level 3.8, Chloride Level 106, Carbon Dioxide Level 23, Anion Gap 8, Blood Urea Nitrogen 12, Creatinine 0.81, Estimat Glomerular Filtration Rate 71, BUN/Creatinine Ratio 15, Glucose Level 94, Calcium Level 8.6, Corrected Calcium 9.5, Total Bilirubin 0.5, Aspartate Amino Transf (AST/SGOT) 25, Alanine Aminotransferase (ALT/SGPT) 19, Alkaline Phosphatase 66, Total Protein 5.7, Albumin 2.9 04/11/22 05:30: White Blood Count 10.8, Red Blood Count 3.04, Hemoglobin 8.2, Hematocrit 28, Mean Corpuscular Volume 91, Mean Corpuscular Hemoglobin 27, Mean Corpuscular Hemoglobin Concent 30, Red Cell Distribution Width , Platelet Count 289, Mean Platelet Volume 10.1, Immature Granulocyte % (Auto) 1, Neutrophils (%) (Auto) 71, Lymphocytes (%) (Auto) 18, Monocytes (%) (Auto) 8, Eosinophils (%) (Auto) 2, Basophils (%) (Auto) 0, Neutrophils # (Auto) 7.7, Lymphocytes # (Auto) 1.9, Monocytes # (Auto) 0.9, Eosinophils # (Auto) 0.2, Basophils # (Auto) 0.0, Immature Granulocyte # (Auto) 0.1, Sodium Level 136, Potassium Level 3.6, Chloride Level 104, Carbon Dioxide Level 25, Anion Gap 7, Blood Urea Nitrogen 11, Creatinine 0.74, Estimat Glomerular Filtration Rate 79, BUN/Creatinine Ratio 15, Glucose Level 92, Calcium Level 8.6, Corrected Calcium 9.6, Total Bilirubin 0.4, Aspartate Amino Transf (AST/SGOT) 23, Alanine Aminotransferase (ALT/SGPT) 16, Alkaline Phosphatase 74, Total Protein 5.7, Albumin 2.8 04/11/22 16:30: White Blood Count 11.6, Red Blood Count 3.11, Hemoglobin 8.4, Hematocrit 28, Mean Corpuscular Volume 90, Mean Corpuscular Hemoglobin 27, Mean Corpuscular Hemoglobin Concent 30, Red Cell Distribution Width , Platelet Count 304, Mean Platelet Volume 9.9, Prothrombin Time 14.5, INR Comment 1.1, Activated Partial Thromboplast Time 32 04/11/22 22:45: Activated Partial Thromboplast Time 67 04/12/22 05:20: White Blood Count 10.2, Red Blood Count 3.00, Hemoglobin 8.1, Hematocrit 27, M rubi Corpuscular Volume 90, Mean Corpuscular Hemoglobin 27, Mean Corpuscular Hemoglobin Concent 30, Red Cell Distribution Width , Platelet Count 316, Mean Platelet Volume 10.6, Immature Granulocyte % (Auto) 2, Neutrophils (%) (Auto) 70, Lymphocytes (%) (Auto) 17, Monocytes (%) (Auto) 9, Eosinophils (%) (Auto) 2, Basophils (%) (Auto) 0, Neutrophils # (Auto) 7.2, Lymphocytes # (Auto) 1.7, Monocytes # (Auto) 0.9, Eosinophils # (Auto) 0.2, Basophils # (Auto) 0.0, Immature Granulocyte # (Auto) 0.2, Activated Partial Thromboplast Time 111, Sodium Level 137, Potassium Level 3.6, Chloride Level 105, Carbon Dioxide Level 23, Anion Gap 9, Blood Urea Nitrogen 12, Creatinine 0.74, Estimat Glomerular Filtration Rate 79, BUN/Creatinine Ratio 16, Glucose Level 107, Calcium Level 8.6, Corrected Calcium 9.6, Total Bilirubin 0.4, Aspartate Amino Transf (AST/SGOT) 24, Alanine Aminotransferase (ALT/SGPT) 18, Alkaline Phosphatase 81, Total Protein 5.8, Albumin 2.8 Discharge Home Medications: Active Scripts Active HYDROcodone/APAP 5 MG/325 MG TAB (Acetaminophen/Hydrocodone Bitart) 1 Tab Tab 1 Ea PO Q6H PRN Eliquis (Apixaban) 5 Mg Tablet 5 Mg PO BID 365 Days Vitamin B-12 (Cyanocobalamin (Vitamin B-12)) 1,000 Mcg Tablet 1,000 Mcg PO DAILY@0700 Pantoprazole Sodium 40 Mg Tablet.dr 40 Mg PO DAILY@0700 Amlodipine Besylate 5 Mg Tablet 5 Mg PO DAILY 7 Days hold until approved by Dr Benitez Reported Benazepril HCl 40 Mg Tab 40 Mg PO DAILY Preservision Areds Softgel (Vit A/C/E/Zinc/Co) [phone] Capsule 1 Cap PO DAILY Diltiazem 24Hr ER (Diltiazem HCl) 120 Mg Cap.er.24h 120 Mg PO DAILY Vitamin D3 (Cholecalciferol (Vitamin D3)) 25 Mcg Capsule 25 Mcg PO DAILY Coq-10 (Ubidecarenone) 100 Mg Capsule 100 Mg PO DAILY Levothyroxine Sodium 75 Mcg Tablet 75 Mcg PO DAILY Allopurinol 100 Mg Tablet 100 Mg PO DAILY Furosemide 20 Mg Tablet 20 Mg PO DAILY Potassium Chloride 10 Meq Capsule.er 10 Meq PO DAILY Instructions to patient/family Please see electronic discharge instructions given to patient. Diagnosis/Problems Diagnosis/Problems (1) Cancer of right colon (2) Symptomatic anemia Status: Acute (3) Cellulitis of leg Status: Acute (4) DVT (deep venous thrombosis) Status: Acute (5) Anticoagulant long-term use Status: Chronic (6) Hypertension Status: Chronic (7) Spinal stenosis Status: Chronic (8) Hypothyroidism Status: Chronic (9) Gout Status: Chronic VIOLA BENITEZ DO Apr 12, 2022 10:32
--- NOTE | 2022-04-12 12:44 | Progress Note ---
WILMA GALICIA 04/12/22 1243: Progress Note Lilli is an 86 y F with history of anemia and GI bleed requiring iron transfusion. She is s/p extended right colectomy for colon cancer on 04/07/[address] Blake. She had hematochezia on 04/08 and heparin was discontinued. She has some pain and tenderness of the abdomen near the incisions up to a 7/10 when she stands that quickly improves. She is ambulating and tolerating a soft diet. Hgb was persistently low around 8.1 during her stay so she was given an iron transfusion. She had no further episodes of hematochezia. Patient has not had a BM since 04/08 but is passing plenty of flatus and urinating without issue. She is started on PO Eliquis for home care of known right leg DVT. Her abdominal incisions were clean, dry and intact throughout her stay. On exam she has stable bilateral lower extremity edema up to 2+ on right. Her is bedside her entire stay. She is comfortable going home without rehab treatment and just with the supportive care of her . Dr. Benitez and Dr. Blake both agree she will be able to go home without rehab services. LING BENITEZ DO 04/12/221955: Supervisory-Addendum Brief Verification & Attestation Participated in pt care: history, MDM, physical Personally performed: exam, history, MDM, supervision of care Care discussed with: Medical Student Procedures: n/a Results interpretation: Verified all documentation Verification and Attestation of Medical Student E/M Service A medical student performed and documented this service in my presence. I reviewed and verified all information documented by the medical student and made modifications to such information, when appropriate. I personally performed the physical exam and medical decision making. Ling Benitez Apr 12, 2022,19:56 WILMA GALICIA Apr 12, 2022 12:43 LING BENITEZ DO Apr 12, 2022 19:56
[2022-04-12 13:45] VITALS: BP 142/88
--- NOTE | 2022-04-13 13:40 | Physician Query Clarification ---
[facility] Path Diagnosis Admission/Discharge Admission Date: Apr 07, 2022 at 09:45 Discharge Date: Apr 12, 2022 at 13:45 Dr. Blake, The medical record reflects the following: Ascending colon CA The pathology report findings document: Poorly differentiated ascending colon CA w/ 2/41 Lymph nodes positive for metastatic CA Question: Do you agree with the pathology report findings of Poorly different iated ascending colon CA w/ 41 Lymph nodes positive for metastatic CA ? Please document a response in Progress Notes or Discharge Summary. 1. Agree with pathological diagnosis of [list primary or metastasis]. 2. No - Do not agree with pathology findings of [list primary or metastasis]. 3. Other, with explanation of the clinical findings. 4. Clinically undetermined, no explanation for the clinical findings. Is is appropriate for a provider to add additional documentation (addenda) to the record to explain the evaluation & care up to 30 days post-discharge. See [facility] and Patient Record Guidelines below. [facility] Record of Care, Standard; [id number].01.03.01EP 1: "The hospital has a written policy that required timely entry of information into the medical record." According to [facility] Patient Record Guidelines, ARTICLE XXI. CORRECTIONS AND ADDENDA, Modifications (addenda amendments, corrections and retractions) should be made timely and no later than regulatory requirements for record completion (i.e. 30 days post discharge). Official coding guidelines require coders to query the physician for agreement with pathology findings that occur during the encounter. Coders are not allowed to pull information directly from the path reports. In responding to this query, please exercise your independent professional judgment. The purpose of this communication is to more accurately reflect the complexity of your patients condition. The fact that a question is asked does not imply that any particular answer is desired or expected. Thank you for your timely response to this clarification. Requestors name: Pepe THIS PHYSICIAN QUERY FORM IS A PERMANENT PART OF THE MEDICAL RECORD PEPE JAMESON Apr 13, 2022 13:40
[2022-04-20] MEDS ORDERED: APIXABAN 5 MG (ELIQUIS) TABLET PO SCH (09:00)
== END 2022-04-12 13:45 | disposition home or self-care (01) | DRG 330 ==
LOC: 4TH 09:45 → SURG 09:46 → 4TH 15:42
PROVIDERS: ADMIT Surgery; ATTEND Surgery
PROC: 0DTF0ZZ Resection of Right Large Intestine, Open Approach (ICD-10-PCS; principal; 2022-04-07 12:16)
DX: C18.2 Malignant neoplasm of ascending colon (principal); C77.2 Secondary and unspecified malignant neoplasm of intra-abdominal lymph nodes; K92.1 Melena; I50.30 Unspecified diastolic (congestive) heart failure; I82.401 Acute embolism and thrombosis of unspecified deep veins of right lower extremity; D64.9 Anemia, unspecified; I11.0 Hypertensive heart disease with heart failure; E66.9 Obesity, unspecified; I48.0 Paroxysmal atrial fibrillation; I25.10 Atherosclerotic heart disease of native coronary artery without angina pectoris; E78.00 Pure hypercholesterolemia, unspecified; M10.9 Gout, unspecified; H91.90 Unspecified hearing loss, unspecified ear; G62.9 Polyneuropathy, unspecified; M19.91 Primary osteoarthritis, unspecified site; E03.9 Hypothyroidism, unspecified; Z68.37 Body mass index [BMI] 37.0-37.9, adult; Z79.01 Long term (current) use of anticoagulants
CPT/HCPCS: 36415; 80053; 83735; 85007; 85014; 85018; 85025; 85027; 85049; 85610; 85730; 86850; 86900; 86901; 87081; 94664; 94760

== ENCOUNTER 2022-04-22 06:48 | Inpatient (IN) | payer MEDICARE, OTHER ==
[~2022-04-22] VITALS: Ht 162 cm; Wt 96.0 kg
[~2022-04-22 06:48] MED LIST changes: +ACHD5005 PO
[2022-04-22] MEDS ORDERED: NS IV 500 ML 500 ML IV ONE (07:00)
--- NOTE | 2022-04-22 07:06 | ED General ---
General Chief Complaint: General Problems/Pain Stated Complaint: WEAKNESS Nursing Triage Note: PT ARRIVAL TO ER [facility]IA [facility] FROM HOME WITH COMPLAINTS OF WEAKNESS AND UNCONTROLLED BOWELS X2 DAYS. PATIENT HAD A RECENT COLON RESECTION A COUPLE WEEKS AGO HERE PER PATIENT. FAMILY TOLD EMS THAT PATIENT WAS DOING FINE, AND THEN BECAME WEAK AND LETHARGIC YESTERDAY. PATIENT HAD TWO FALLS YESTERDAY BUT DENIES INJURY. PT COMPLAINS OF OVERALL GENERALIZED WEAKNESS. Source of Information: Patient Exam Limitations: No Limitations History of Present Illness Date Seen by Provider: Apr 22, 2022 Time Seen by Provider: 06:45 Initial Comments Here by EMS with report of weakness. She has had some diarrhea. Recently had colon resection earlier this month with Dr. Blake. States that she has felt some scratchiness of her throat and some headache and was noted to have fever here. Overall just feels weak overall. Denies breathing problems, chest pain or vomiting. Reports going to the bathroom okay and denies dysuria. She is vaccinated for COVID and influenza. She is currently on antibiotics for concerns for possible wound infection although she states that is a little better. She has had loose stools for the past couple days but she is on Augmentin. Timing/Duration: 12-24 Hours Severity: Moderate Associated Systoms: No Cough; Fever/Chills, Headaches; No Nausea/Vomiting, No Shortness of Air; Weakness Allergies and Home Medications Allergies Coded Allergies: No Known Drug Allergies (Verified , 04/06/22) Patient Home Medication List Home Medication List Reviewed: Yes Allopurinol (Allopurinol) 100 Mg Tablet, 100 MG PO DAILY, (Reported) Entered as Reported by: ELANA JOSHI on 11/06/17 0828 Amlodipine Besylate (Amlodipine Besylate) 5 Mg Tablet, 5 MG PO DAILY Prescribed by: VIOLA SPEARS on 03/24/22 1207 Apixaban (Eliquis) 5 Mg Tablet, 5 MG PO BID Prescribed by: VIOLA SPEARS on 04/12/22 1031 Benazepril HCl (Benazepril HCl) 40 Mg Tab, 40 MG PO DAILY, (Reported) Entered as Reported by: FEMI PRINCE on 03/21/22 1552 Cholecalciferol (Vitamin D3) (Vitamin D3) 25 Mcg Capsule, 25 MCG PO DAILY, (Reported) Entered as Reported by: FEMI PRINCE on 09/16/20 1003 Cyanocobalamin (Vitamin B-12) (Vitamin B-12) 1,000 Mcg Tablet, 1,000 MCG PO DAILY@0700 Prescribed by: VIOLA SPEARS on 03/24/22 1207 Diltiazem HCl (Diltiazem 24Hr ER) 120 Mg Cap.er.24h, 120 MG PO DAILY, (Reported) Entered as Reported by: FEMI PRINCE on 03/21/22 1552 Furosemide (Furosemide) 20 Mg Tablet, 20 MG PO DAILY, (Reported) Entered as Reported by: ELANA JOSHI on 11/06/17 0828 Hydrocodone Bit/Acetaminophen (HYDROcodone/APAP 5 MG/325 MG TAB) 1 Tab Tab, 1 EA PO Q6H PRN for PAIN-MODERATE (5-7) Prescribed by: VIOLA SPEARS on 04/12/22 1031 Levothyroxine Sodium (Levothyroxine Sodium) 75 Mcg Tablet, 75 MCG PO DAILY, (Reported) Entered as Reported by: FEMI PRINCE on 09/16/20 1003 Pantoprazole Sodium (Pantoprazole Sodium) 40 Mg Tablet.dr, 40 MG PO DAILY@0700 Prescribed by: VIOLA SPEARS on 03/24/22 1207 Potassium Chloride (Potassium Chloride) 10 Meq Capsule.er, 10 MEQ PO DAILY, ( Reported) Entered as Reported by: ELANA JOSHI on 11/06/17 0828 Ubidecarenone (Coq-10) 100 Mg Capsule, 100 MG PO DAILY, (Reported) Entered as Reported by: FEMI PRINCE on 09/16/20 1003 Vit A/C/E/Zinc/Co (Preservision Areds Softgel) 14,320-226 Capsule, 1 CAP PO DAILY, (Reported) Entered as Reported by: FEMI PRINCE on 03/21/22 155 Review of Systems Review of Systems Constitutional: fever, weakness EENTM: throat pain; No nose congestion Respiratory: No cough, No short of breath Cardiovascular: No chest pain; edema Gastrointestinal: diarrhea; No nausea, No vomiting Genitourinary: No dysuria, No frequency Musculoskeletal: No back pain, No muscle pain Skin: change in color, lesions (Surgical postop lesions to the abdomen status post colon resection) Psychiatric/Neurological: Headache (Mild global), Weakness All Other Systems Reviewed Negative Unless Noted: Yes Past Egtivvx-Ejtjzv-Dyhtcn Hx Patient Social History Tobacco Use?: No Use of E-Cig and/or Vaping dev: No Substance use?: No Alcohol Use?: No Pt feels they are or have been: No Immunizations Up To Date Tetanus Booster (TDap): Unknown Influenza Vaccine Up-to-Date: Yes; Up-to-Date First/Initial COVID19 Vaccinat: 2020 Second COVID19 Vaccination Giacomo: 2020 Third COVID19 Vaccination Date: 2021 COVID19 Vaccine 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: [employer] Seasonal Allergies Seasonal Allergies: No Past Medical History Surgeries: Yes (hyst,back surgery,R middle finger cyst removed) Abdominal, Orthopedic Respiratory: No Pneumonia Currently Using CPAP: No Currently Using BIPAP: No Cardiac: Yes (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) Atrial Fibrillation, Chronic Edema/Swelling, Coronary Artery Disease, Deep Vein Thrombosis, High Cholesterol, Hypertension Neurological: No Neuropathy Reproductive Disorders: No DIRECTOR NETWORK DEVELOPMENT History: Hysterectomy, Menopausal Sexually Transmitted Disease: No Genitourinary: Yes Bladder Infection Gastrointestinal: Yes ("losing blood in stool") Gastroesophageal Reflux Musculoskeletal: Yes (LEFT KNEE TORN MEDIAL MENISCUS, Spinal stenosis) Arthritis, Chronic Back Pain Endocrine: Yes Hypothyroidsim HEENT: Yes (glasses, dentures) Hearing Impairment: Hard of Hearing Cancer: Yes Skin, Colon What Type of Treatment Did You: Surgical Intervention Psychosocial: No Integumentary: No Blood Disorders: Yes (anemia) Adverse Reaction/Blood Tranf: No Family Medical History Reviewed Nursing Family Hx No Pertinent Family Hx Physical Exam-Suspected Sepsis Physical Exam Vital Signs Vital Signs - First Documented 04/22/22 06:48 Temp 37.3 Pulse 94 Resp 20 B/P (MAP) 139/90 (106) Pulse Ox 95 O2 Delivery Nasal Cannula O2 Flow Rate 4.00 Capillary Refill : Less Than 3 Seconds Blood Pressure Mean: 106 Height, Weight, BMI Height: 5'4.00" Weight: 235lbs. 2.0oz. 106.135559sd; 37.82 BMI Method:Stated General Appearance: No Apparent Distress, WD/WN, Obese HEENT: PERRL/EOMI, Pharyngeal Erythema; No Tonsillar Enlargement Neck: Normal Inspection, Non Tender, Supple Respiratory: No Respiratory Distress, Crackles (Bilateral bases) Cardiovascular: Regular Rate, Rhythm, No Murmur Gastrointestinal: Non Tender, Soft, Other (Central stapled wound that appears to be clean, dry and intact with some mild surrounding erythema without abscess or drainage.) Back: Normal Inspection, No CVA Tenderness, No Vertebral Tenderness Extremity: Normal Range of Motion, Non Tender Neurologic/Psychiatric: Alert, Oriented x3 Skin: normal color, warm/dry Focused Exam Lactate Level 04/22/22 09:26: Lactic Acid Level 1.27 Lactic Acid Level Laboratory Tests Test 04/22/22 09:26 Lactic Acid Level 1.27 MMOL/L (0.50-2.00) Progress/Results/Core Measures Suspected Sepsis SIRS Temperature: Pulse: 94 Respiratory Rate: 20 Laboratory Tests 04/22/22 09:26: White Blood Count 9.2 Blood Pressure 139 /90 Mean: 106 04/22/22 09:26: Lactic Acid Level 1.27 Laboratory Tests 04/22/22 09:26: Creatinine 1.10, INR Comment 1.3, Platelet Count 270, Total Bilirubin 0.4 Results/Orders Lab Results Laboratory Tests Test 04/22/22 06:54 04/22/22 07:25 04/22/22 09:26 Range/Units Influenza Type A (RT-PCR) Not Detected Not Detecte Influenza Type B (RT-PCR) Not Detected Not Detecte SARS-CoV-2 RNA (RT-PCR) Not Detected Not Detecte Urine Color YELLOW Urine Clarity TURBID Urine pH 5.0 5-9 Urine Specific [place] >=1.030 1.016-1.022 Urine Protein 1+ H NEGATIVE Urine Glucose (UA) NEGATIVE NEGATIVE Urine Ketones NEGATIVE NEGATIVE Urine Nitrite NEGATIVE NEGATIVE Urine Bilirubin NEGATIVE NEGATIVE Urine Urobilinogen 0.2 < = 1.0 MG/DL Urine Leukocyte Esterase 2+ H NEGATIVE Urine RBC (Auto) NEGATIVE NEGATIVE Urine RBC NONE /HPF Urine WBC 25-50 H /HPF Urine Squamous Epithelial Cells 10-25 H /HPF Urine Crystals NONE /LPF Urine Bacteria FEW H /HPF Urine Casts NONE /LPF Urine Mucus SMALL H /LPF Urine Yeast MODERATE H /HPF Urine Culture Indicated YES White Blood Count 9.2 4.3-11.0 10^3/uL Red Blood Count 3.72 L 3.80-5.11 10^6/uL Hemoglobin 10.5 L 11.5-16.0 g/dL Hematocrit 34 L 35-52 % Mean Corpuscular Volume 91 80-99 fL Mean Corpuscular Hemoglobin 28 25-34 pg Mean Corpuscular Hemoglobin Concent 31 L 32-36 g/dL Red Cell Distribution Width 10.0-14.5 % Platelet Count 270 130-400 10^3/uL Mean Platelet Volume 10.3 9.0-12.2 fL Immature Granulocyte % (Auto) 1 % Neutrophils (%) (Auto) 68 42-75 % Lymphocytes (%) (Auto) 19 12-44 % Monocytes (%) (Auto) 12 0-12 % Eosinophils (%) (Auto) 1 0-10 % Basophils (%) (Auto) 1 0-10 % Neutrophils # (Auto) 6.3 1.8-7.8 10^3/uL Lymphocytes # (Auto) 1.7 1.0-4.0 10^3/uL Monocytes # (Auto) 1.1 H 0.0-1.0 10^3/uL Eosinophils # (Auto) 0.1 0.0-0.3 10^3/uL Basophils # (Auto) 0.1 0.0-0.1 10^3/uL Immature Granulocyte # (Auto) 0.1 0.0-0.1 10^3/uL Percent Immature Platelet Fraction 7.6 0.0-7.6 % Prothrombin Time 16.6 H 12.2-14.7 SEC INR Comment 1.3 0.8-1.4 Activated Partial Thromboplast Time 23 L 24-35 SEC Sodium Level 131 L 135-145 MMOL/L Potassium Level 4.4 3.6-5.0 MMOL/L Chloride Level 100 98-107 MMOL/L Carbon Dioxide Level 18 L 21-32 MMOL/L Anion Gap 13 5-14 MMOL/L Blood Urea Nitrogen 21 H 7-18 MG/DL Creatinine 1.10 0.60-1.30 MG/DL Estimat Glomerular Filtration Rate 49 BUN/Creatinine Ratio 19 Glucose Level 90 70-105 MG/DL Lactic Acid Level 1.27 0.50-2.00 MMOL/L Calcium Level 8.8 8.5-10.1 MG/DL Corrected Calcium 9.3 8.5-10.1 MG/DL Total Bilirubin 0.4 0.1-1.0 MG/DL Aspartate Amino Transf (AST/SGOT) 90 H 5-34 U/L Alanine Aminotransferase (ALT/SGPT) 43 0-55 U/L Alkaline Phosphatase 92 40-136 U/L C-Reactive Protein High Sensitivity 2.54 H 0.00-0.50 MG/DL B-Type Natriuretic Peptide 50.2 <100.0 PG/ML Total Protein 7.0 6.4-8.2 GM/DL Albumin 3.4 3.2-4.5 GM/DL Procalcitonin 0.09 <0.10 NG/ML My Orders Orders - SHIRLEY GARNETT MD Cbc With Automated Diff (04/22/22 06:58) Comprehensive Metabolic Panel (04/22/22 06:58) Blood Culture (04/22/22 06:58) Sputum Culture (04/22/22 06:58) Urinalysis (04/22/22 06:58) Urine Culture (04/22/22 06:58) Protime With Inr (04/22/22 06:58) Partial Thromboplastin Time (04/22/22 06:58) Chest 1 View, Ap/Pa Only (04/22/22 06:58) Ed Iv/Invasive Line Start (04/22/22 06:58) Vital Signs Adult Sepsis Patie Q15M (04/22/22 06:58) O2 (04/22/22 06:58) Remove Rings In Anticipation O (04/22/22 06:58) Lactic Acid Analyzer (04/22/22 06:58) Influenza A And B By Pcr (04/22/22 06:58) Ns Iv 500 Ml (Sodium Chloride 0.9%) (04/22/22 07:00) Covid 19 Inhouse Test (04/22/22 06:58) Bnp Marina (04/22/22 06:58) Hs C Reactive Protein (04/22/22 06:58) Procalcitonin (Pct) (04/22/22 06:58) Cefepime Injection (Maxipime Injection) (04/22/22 10:45) Medications Given in ED Current Medications Medications Dose Ordered Sig/Raegan Route Start Time Stop Time Status Last Admin Dose Admin Sodium Chloride 500 ml @ 0 mls/hr Q0M ONCE IV 04/22/22 07:00 04/22/22 07:01 DC 04/22/22 07:21 500 MLS/HR Vital Signs/I&O 04/22/22 04/22/22 06:48 06:48 Temp 37.3 Pulse 94 Resp 20 B/P (MAP) 139/90 (106) Pulse Ox 95 O2 Delivery Nasal Cannula Nasal Cannula O2 Flow Rate 4.00 2.00 Capillary Refill : Less Than 3 Seconds Blood Pressure Mean: 106 Progress Note : Progress Note Seen and evaluated. Patient noted to have mild fever. We will check COVID and influenza. Sepsis protocol initiated including IV, labs with CBC, CMP, BMP, CRP and procalcitonin. We will check chest x-ray. UA ordered. Normal saline 500 mL bolus. Monitor patient. 0849: I have discussed the case with Dr. Spears. Patient will likely need admission but we are waiting on some labs which have been delayed due to inability to access vein for blood draw. We will try with ultrasound. Patient does have urinary tract infection likely but we will see what the rest of the labs bring. She is currently on Augmentin. 1046: We were able to finally get labs via ultrasound which markedly delayed evaluation due to difficulty for venous access. I have rediscussed the case with Dr. Spears. She accepts patient for admission and has already written orders for urinary tract infection. We will initiate cefepime 1 g IV now. Patient is also likely dehydrated which will continue to be managed while inpatient. Findings discussed with patient and family who agree with plan. Diagnostic Imaging Diagonstic Imaging: Xray Plain Films/CT/US/NM/MRI: chest Comments [facility]. [place], [place] NAME: DAKOTAH MACEDO [facility] REC#: [id number] PT STATUS: REG ER : 1935 PHYSICIAN: SHIRLEY GARNETT MD ADMIT DATE: 04/22/22/ER Signed Date of Exam:04/22/22 CHEST 1 VIEW, AP/PA ONLY INDICATION: Weakness. TECHNIQUE: Single view chest 6:55 AM. CORRELATION STUDY: 03/31/2022 FINDINGS: Heart size enlarged but stable. Vasculature appears stable. Mediastinal separation unchanged. Presumed loop recorder overlying the left chest. The lungs are clear with no consolidating infiltrate. There is no significant effusion or pneumothorax. IMPRESSION: 1. Cardiac enlargement without overt failure. Generally stable appearance about the chest. Dictated by: Dictated on workstation # [id number] Dict: 04/22/22721 Trans: 04/22/22909 [facility] [id number] Interpreted by: JOSE MANUEL OGLESBY DO Electronically signed by: JOSE MANUEL OGLESBY DO 04/22/22909 Departure Communication (Admissions) Time/Spoke to Admitting Phy: 08:49 Impression Primary Impression: UTI (urinary tract infection) Qualified Codes: N30.00 - Acute cystitis without hematuria Additional Impressions: Dehydration Weakness Disposition: ADMITTED INPATIENT Condition: Stable Admissions Decision to Admit Reason: Admit from ER (General) Decision to Admit/Date: Apr 22, 2022 Time/Decision to Admit Time: 10:44 Departure-Patient Inst. Referrals: VIOLA SPEARS DO (PCP/Family) Primary Care Physician SHIRLEY GARNETT MD Apr 22, 2022 07:05
--- NOTE | 2022-04-22 07:25 | Diagnostic Imaging Report ---
INDICATION: Weakness. TECHNIQUE: Single view chest 6:55 AM. CORRELATION STUDY: 03/31/2022 FINDINGS: Heart size enlarged but stable. Vasculature appears stable. Mediastinal separation unchanged. Presumed loop recorder overlying the left chest. The lungs are clear with no consolidating infiltrate. There is no significant effusion or pneumothorax. IMPRESSION: 1. Cardiac enlargement without overt failure. Generally stable appearance about the chest. Dictated by: Dictated on workstation # [id number]
[2022-04-22 07:32] LABS: BILIRUBIN,URINE NEGATIVE (NEGATIVE); CLARITY,URINE TURBID; COLOR,URINE YELLOW; GLUCOSE, URINE (UA) NEGATIVE (NEGATIVE); KETONES,URINE NEGATIVE (NEGATIVE); LEUKOCYTE ESTERASE ,URINE 2+ (NEGATIVE); NITRITE,URINE NEGATIVE (NEGATIVE); PROTEIN,URINE 1+ (NEGATIVE)
[2022-04-22 07:46] LABS: BACTERIA,URINE FEW /HPF; WBC,URINE 25-50 /HPF; YEAST,URINE MODERATE /HPF
[2022-04-22 09:36] LABS: BASOPHILS # (AUTO) 0.1 10^3/uL (0.0-0.1); BASOPHILS % (AUTO) 1 % (0-10); HEMOGLOBIN 10.5 g/dL (11.5-16.0); MEAN PLATELET VOLUME 10.3 fL (9.0-12.2)
--- NOTE | 2022-04-22 09:37 | History & Physical ---
History of Present Illness HPI/Chief Complaint Chief complaint: Severe weakness from UTI and clinical status decline HPI: This is an 86-year-old female clinic patient of mine who has had a recent decline in function due to GI bleed 5 weeks ago which resulted in scopes by Dr. Blake diagnosing a right colon mass biopsied and found to be adenocarcinoma requiring a right colectomy with reanastomosis on 04/07/2022. She has had multiple complications including transfusion was needed during the initial GI bleed episode and iron infusions then right leg cellulitis with DVT requiring Lovenox for bridging prior to right-sided colectomy requiring heparin drip and close monitoring with good return of bowel function and activity and I had seen her in clinic on Sunday with normal labs and regaining of hemoglobin of 10 but she had a significant decline in status yesterday with multiple falls and today could no longer walk. She was assessed to have no evidence of sepsis but UTI was diagnosed and dehydration so the plan will be for cefepime empiric coverage due to recent Augmentin use for incisional cellulitis started on Sunday in case it is Pseudomonas. I will also add vancomycin to cover for Enterococcus. Source: patient, family, RN/MD, old records Exam Limitations: clinical condition Date Seen 04/22/22 Time Seen by a Provider: 13:00 Attending Physician Ling Benitez DO PCP Admitting Physician: Attending Physician: Referring Physician Date of Admission Home Medications & Allergies Home Medications Reviewed patient Home Medication Reconciliation performed by pharmacy medication reconciliations mechanical maintenance technician and/or nursing. Patients Allergies have been reviewed. Allergies Allergies Coded Allergies No Known Drug Allergies ([id number]/8/22) Past Vkfvntp-Avhwox-Objrkn Hx Past Med/Social Hx: Reviewed Nursing Past Med/Soc Hx, Reviewed and Corrections made Patient Social History Marrital Status: Employed/Student: retired Alcohol Use: Denies Use Drug of Choice: Denies Smoking Status: Never a Smoker Recent Hopitalizations: Yes (03/21 - anemic - blood clot right leg post hospital stay) Immunizations Up To Date Tetanus Booster (TDap): Unknown Date of Pneumonia Vaccine: Jan 11, 2016 Date of Influenza Vaccine: Feb 13, 2022 Seasonal Allergies Seasonal Allergies: No Past Medical History Surgeries: Abdominal, Orthopedic Respiratory: Pneumonia Currently Using CPAP: No Currently Using BIPAP: No Cardiac: Atrial Fibrillation, Chronic Edema/Swelling, Coronary Artery Disease, Deep Vein Thrombosis, High Cholesterol, Hypertension Neurological: Neuropathy Reproductive: No Sexually Transmitted Disease: No Hysterectomy, Menopausal Genitourinary: Bladder Infection Gastrointestinal: Gastroesophageal Reflux Musculoskeletal: Arthritis, Chronic Back Pain Endocrine: Hypothyroidsim Hearing Impairment: Hard of Hearing Cancer: Skin, Colon What Type of Treatment Did You: Surgical Intervention History of Blood Disorders: Yes (anemia) Adverse Reaction to Blood Flores: No Family History Reviewed Nursing Family Hx No Pertinent Family Hx Review of Systems Constitutional: see HPI, dizziness, fever, malaise, weakness EENTM: no symptoms reported Respiratory: no symptoms reported Cardiovascular: no symptoms reported Gastrointestinal: nausea Genitourinary: decreased output Musculoskeletal: no symptoms reported Skin: no symptoms reported Psychiatric/Neurological: No Symptoms Reported All Other Systems Reviewed Negative Unless Noted: Yes Physical Exam Physical Exam Vital Signs Vital Signs - First Documented 04/22/22 04/22/22 06:48 16:30 Temp 37.3 Pulse 94 Resp 20 B/P (MAP) 139/90 (106) Pulse Ox 95 O2 Delivery Nasal Cannula O2 Flow Rate 4.00 FiO2 21 Capillary Refill : Less Than 3 Seconds Height, Weight, BMI Height: 5'4.00" Weight: 235lbs. 2.0oz. 106.513817ye; 37.82 BMI Method:Stated General Appearance: No Apparent Distress, WD/WN, Chronically ill, Obese HEENT: PERRL/EOMI, Pharyngeal Erythema; No Tonsillar Enlargement Neck: Normal Inspection, Non Tender, Supple Respiratory: No Respiratory Distress, Crackles (Bilateral bases) Cardiovascular: Regular Rate, Rhythm, No Murmur Gastrointestinal: Non Tender, Soft, Other (Central stapled wound that appears to be clean, dry and intact with some mild surrounding erythema without abscess or drainage.) Back: Normal Inspection, No CVA Tenderness, No Vertebral Tenderness Extremity: Normal Range of Motion, Non Tender Neurologic/Psychiatric: Alert, Oriented x3 Results Results/Procedures Labs Laboratory Tests 04/22/22 09:26 Patient resulted labs reviewed. Assessment/Plan Admission Diagnosis Assessment: Acute UTI Dehydration Hyponatremia 04/07/22 Status post uncomplicated right colectomy by Dr. Blake due to colon mass adenocarcinoma Anemia severe and symptomatic requiring iron infusions in the past Recent GI bleed 5 weeks ago requiring transfusions Fatigue Afib chronic Diastolic HF Hypothyroidism HTN HLD Hx DVT right leg recently received Lovenox bridge prior to surgery then returned to OAC Chronic back pain Neuropathy Gout Plan: IV abx Gentle IVF Monitor hemoglobin and transfuse as needed OAC Supportive care Pain control Incentive spirometer Ambulate Admission Status: Inpatient Order (span 2 midnights) Reason for Inpatient Admission: UTI with clinical status decline with recent diagnosis of colon cancer Diagnosis/Problems Diagnosis/Problems (1) UTI (urinary tract infection) Qualifiers: Urinary tract infection type: acute cystitis Hematuria presence: without hematuria Qualified Codes: N30.00 - Acute cystitis without hematuria (2) Dehydration (3) Weakness Status: Acute LING BENITEZ DO Apr 22, 2022 09:37
[2022-04-22 09:38] LABS: EOSINOPHILS # (AUTO) 0.1 10^3/uL (0.0-0.3); EOSINOPHILS % (AUTO) 1 % (0-10); HEMATOCRIT 34 % (35-52); LYMPHOCYTES # (AUTO) 1.7 10^3/uL (1.0-4.0); LYMPHOCYTES % (AUTO) 19 % (12-44); MEAN CORPUSCULAR HEMOGLOBIN 28 pg (25-34); MEAN CORPUSCULAR HGB CONC 31 g/dL (32-36); MEAN CORPUSCULAR VOLUME 91 fL (80-99); MONOCYTES # (AUTO) 1.1 10^3/uL (0.0-1.0); MONOCYTES % (AUTO) 12 % (0-12); NEUTROPHILS # (AUTO) 6.3 10^3/uL (1.8-7.8); NEUTROPHILS % (AUTO) 68 % (42-75); PLATELET COUNT 270 10^3/uL (130-400); WHITE BLOOD COUNT 9.2 10^3/uL (4.3-11.0)
[2022-04-22 09:45] LABS: ALBUMIN 3.4 GM/DL (3.2-4.5); INR 1.3 (0.8-1.4); POTASSIUM 4.4 MMOL/L (3.6-5.0); PROTHROMBIN TIME PATIENT 16.6 SEC (12.2-14.7)
[2022-04-22 09:46] LABS: CALCIUM 8.8 MG/DL (8.5-10.1)
[2022-04-22 09:49] LABS: BILIRUBIN,TOTAL 0.4 MG/DL (0.1-1.0)
[2022-04-22 09:51] LABS: CREATININE SERUM 1.1 MG/DL (0.60-1.30)
[2022-04-22] MEDS ORDERED: CEFEPIME INJECTION 1,000 MG in NS (IVPB) 50 ML IV ONE (10:45)
[2022-04-22] MEDS ORDERED: ANTACID SUSP 30 ML UDC (MYLANTA) PO PRN (13:15)
[2022-04-22] MEDS ORDERED: MILK OF MAGNESIA 400 MG/5 ML 30 ML UDC PO PRN (13:15)
[2022-04-22] MEDS ORDERED: MELATONIN 3 MG TABLET PO PRN (13:15)
[2022-04-22] MEDS ORDERED: LACTULOSE SYRUP 10GM/15ML (ENULOSE) 30ML UDC PO PRN (13:15)
[2022-04-22] MEDS ORDERED: ACETAMINOPHEN 325 MG TABLET PO PRN (13:15)
[2022-04-22] MEDS ORDERED: polyethylene glycoL POWDER 17 GM (MIRALAX) PACK PO PRN (13:15)
[2022-04-22] MEDS ORDERED: morphine INJ 4 MG/ML 1 ML (VIAL/SYRINGE) IV PRN (13:15)
[2022-04-22] MEDS ORDERED: BISACODYL 10 MG SUPP (DULCOLAX) PR PRN (13:15)
[2022-04-22] MEDS ORDERED: diphenhydrAMINE 25 MG TAB (BENADRYL) PO PRN (13:15)
[2022-04-22] MEDS ORDERED: ONDANSETRON 4 MG (ZOFRAN) ORAL DISSOLVE TAB PO PRN (13:15)
[2022-04-22] MEDS ORDERED: CALCIUM CARBONATE 500 MG (TUMS) TAB.CHEW PO PRN (13:15)
[2022-04-22] MEDS ORDERED: ONDANSETRON 4 MG/2 ML (SDV) Z0FRAN IV PRN (13:15)
[2022-04-22] MEDS ORDERED: diphenhydrAMINE 50 MG/ML INJ (BENADRYL) IVP PRN (13:15)
[2022-04-22 13:21] VITALS: BP 150/94
[2022-04-22] MEDS: NS IV 1000 ML 1,000 ML IV SCH (13:31)
[2022-04-22 15:10] VITALS: BP 136/64
[2022-04-22 16:30] VITALS: BP 139/64
[2022-04-22] MEDS ORDERED: RT-ALBUTEROL SULF 2.5 MG/3 ML PRE-MIX VIAL INH PRN (16:45)
[2022-04-22] MEDS ORDERED: HYDROcodone/APAP 5 MG/325 MG (LORTAB) TAB PO PRN (18:45)
[2022-04-22] MEDS ORDERED: VANCOMYCIN INJECTION 0.1 MG in NS (IVPB) 250 ML IV SCH (18:45)
[2022-04-22] MEDS: CEFEPIME INJECTION 1,000 MG in NS (IVPB) 50 ML IV SCH (18:53)
[2022-04-22 19:28] VITALS: BP 138/71
--- NOTE | 2022-04-22 20:41 | CONSULTATION REPORT ---
ATTENDING PRIMARY CARE PHYSICIAN: Dr. Ling Benitez. ADMITTING PHYSICIAN: Dr. Benitze. HISTORY OF PRESENT ILLNESS: The patient is an 86-year-old female who did have a decline in function and significant fatigue and developed a gastrointestinal bleed 5 weeks ago. She underwent endoscopy by another surgeon and was found to have a right colonic mass and this was biopsied and found to be an adenocarcinoma requiring a right hemicolectomy on 04/06/2022. She has had some issues since that time including anemia requiring blood transfusions as well as right leg cellulitis and deep vein thrombosis requiring Lovenox. She was experiencing a significant decline in her ambulatory ability and did fall a few times and was extremely weak. She was evaluated and found to have a urinary tract infection. She was started on broad-spectrum antibiotics. She also did have some cellulitis around the incision and was started on Augmentin as an outpatient; however, upon examination of the wounds, there is no redness or erythema as well as no fluctuance to indicate any abscess. The brissa have been in for approximately 18 days and can be removed at any time. PAST MEDICAL HISTORY: Atrial fibrillation, chronic bilateral lower extremity edema, coronary artery disease, history of deep vein thrombosis, hypercholesterolemia, hypertension, neuropathy, gastroesophageal reflux disease, arthritis, hypothyroid, degenerative joint disease. PAST SURGICAL HISTORY: Back surgery, hysterectomy, bladder surgery. ALLERGIES: NO KNOWN DRUG ALLERGIES. MEDICATIONS: Allopurinol, amlodipine, apixaban, benazepril, diltiazem, furosemide, hydrocodone, levothyroxine, Protonix, potassium. SOCIAL HISTORY: Negative smoking, negative alcohol. FAMILY HISTORY: Noncontributory. VITAL SIGNS: Temperature 37.1, blood pressure 138/71, pulse 89, respirations 19, pulse ox 94% on room air. REVIEW OF SYSTEMS: Well-nourished female, currently in no acute distress. She is not experiencing shortness of breath or difficulty breathing. No chest pain, palpitations, diaphoresis. No nausea, vomiting, no diarrhea, constipation, no red blood per rectum, no dark tarry stools. She was having fever and chills at home as well as associated weakness. No recent inadvertent weight loss. PHYSICAL EXAMINATION: CHEST: Few scattered rales and rhonchi bilaterally. HEART: Regular, no murmurs. EXTREMITIES: No lower extremity edema. Negative Homans sign. HEENT: No scleral icterus. No cervical lymphadenopathy. ABDOMEN: Soft, nontender, nondistended with all incisions clean, dry, and intact with no redness or erythema or fluctuance. ASSESSMENT AND PLAN: An 86-year-old female with a urinary tract infection. Wounds look good and not infected and at some point, we will remove the skin brissa. Job ID: [id number] DocumentID: [id number] Dictated Date: 04/22/2022 20:24:27 Research And Development Technician Date: 04/22/2022 20:40:00 Dictated By: YAHAIRA BRYANT MD
[2022-04-22] MEDS: VANCOMYCIN 1 GM/NS 250 ML IVPB IV SCH ×4 (21:09→21:59)
[2022-04-22] MEDS: APIXABAN 5 MG (ELIQUIS) TABLET PO SCH (21:58)
[2022-04-22] MEDS: DOCUSATE SODIUM 100 MG (COLACE) CAP PO SCH (21:58)
[2022-04-22] MEDS: SENNOSIDES 8.6 MG (SENOKOT) TAB PO SCH (21:58)
[2022-04-22 23:50] VITALS: BP 148/97
[2022-04-23] MEDS: CEFEPIME INJECTION 1,000 MG in NS (IVPB) 50 ML IV SCH ×3 (02:09→18:47)
[2022-04-23] MEDS: NS IV 1000 ML 1,000 ML IV SCH (02:09)
[2022-04-23 04:59] VITALS: BP 150/92
[2022-04-23] MEDS: LEVOTHYROXINE 75 MCG (LEVOTHROID) TABLET PO SCH (05:44)
[2022-04-23] MEDS: CYANOCOBALAMIN 1,000 MCG (VITAMIN B-12) TABLET PO SCH (05:44)
[2022-04-23] MEDS: PANTOPRAZOLE 40 MG (PROTONIX) TAB PO SCH (05:44)
--- NOTE | 2022-04-23 06:03 | Progress Note ---
Subjective Date Seen by a Provider: Apr 23, 2022 Time Seen by a Provider: 11:00 Subjective/Events-last exam Patient much improved Very weak Will discontinue catheter today Pseudomonas on urine culture so very pleased I had changed antibiotics to Pseudomonas coverage with cefepime upon admission Discontinue telemetry Labs stable at bedside Review of Systems General: Fatigue, Malaise Focused Exam Lactate Level 04/22/22 09:26: Lactic Acid Level 1.27 Objective Exam Last Set of Vital Signs Vital Signs Date Time Temp Pulse Resp B/P (MAP) Pulse Ox O2 Delivery O2 Flow Rate FiO2 04/23/22 04:59 36.8 95 18 150/92 (111) 93 Room Air 04/22/22 16:30 21 04/22/22 12:56 2.00 2.00 Capillary Refill : Less Than 3 Seconds I&O Intake and Output 04/23/22 00:00 Intake Total 1350 ml Output Total 1600 ml Balance -250 ml Intake Oral 500 ml IV Total 850 ml Output Urine Total 1600 ml Daily Weight Change No General: Alert, Oriented X3, Cooperative, No Acute Distress Lungs: Clear to Auscultation, Normal Air Movement Heart: Regular Rate, Normal S1, Normal S2, No Murmurs Psych/Mental Status: Mental Status NL, Mood NL Results Lab Laboratory Tests 04/22/22 06:54: Influenza Type A (RT-PCR) Not Detected, Influenza Type B (RT-PCR) Not Detected, SARS-CoV-2 RNA (RT-PCR) Not Detected 04/22/22 07:25: Urine Color YELLOW, Urine Clarity TURBID, Urine pH 5.0, Urine Specific [place] >=1.030, Urine Protein 1+H, Urine Glucose (UA) NEGATIVE, Urine Ketones NEGATIVE, Urine Nitrite NEGATIVE, Urine Bilirubin NEGATIVE, Urine Urobilinogen 0.2, Urine Leukocyte Esterase 2+H, Urine RBC (Auto) NEGATIVE, Urine RBC NONE, Urine WBC 25- 50H, Urine Squamous Epithelial Cells 10-25H, Urine Crystals NONE, Urine Bacteria FEWH, Urine Casts NONE, Urine Mucus SMALLH, Urine Yeast MODERATEH, Urine Culture Indicated YES 04/22/22 09:26: White Blood Count 9.2, Red Blood Count 3.72L, Hemoglobin 10.5L, Hematocrit 34L, Mean Corpuscular Volume 91, Mean Corpuscular Hemoglobin 28, Mean Corpuscular Hemoglobin Concent 31L, Red Cell Distribution Width , Platelet Count 270, Mean Platelet Volume 10.3, Immature Granulocyte % (Auto) 1, Neutrophils (%) (Auto) 68, Lymphocytes (%) (Auto) 19, Monocytes (%) (Auto) 12, Eosinophils (%) (Auto) 1, Basophils (%) (Auto) 1, Neutrophils # (Auto) 6.3, Lymphocytes # (Auto) 1.7, Monocytes # (Auto) 1.1H, Eosinophils # (Auto) 0.1, Basophils # (Auto) 0.1, Immature Granulocyte # (Auto) 0.1, Percent Immature Platelet Fraction 7.6, Prothrombin Time 16.6H, INR Comment 1.3, Activated Partial Thromboplast Time 23L , Sodium Level 131L, Potassium Level 4.4, Chloride Level 100, Carbon Dioxide Level 18L, Anion Gap 13, Blood Urea Nitrogen 21H, Creatinine 1.10, Estimat Glomerular Filtration Rate 49, BUN/Creatinine Ratio 19, Glucose Level 90, Lactic Acid Level 1.27, Calcium Level 8.8, Corrected Calcium 9.3, Total Bilirubin 0.4, Aspartate Amino Transf (AST/SGOT) 90H, Alanine Aminotransferase (ALT/SGPT) 43, Alkaline Phosphatase 92, C-Reactive Protein High Sensitivity 2.54H, B-Type Natriuretic Peptide 50.2, Total Protein 7.0, Albumin 3.4, Procalcitonin 0.09 Assessment/Plan Assessment/Plan Assess & Plan/Chief Complaint Assessment: Acute UTI Pseudomonas maintain on cefepime Dehydration improved Hep-Lock IV fluid Hyponatremia improved at 134 04/07/22 Status post uncomplicated right colectomy by Dr. Blake due to colon mass adenocarcinoma Anemia severe and symptomatic requiring iron infusions in the pasthemoglobin stable today Recent GI bleed 5 weeks ago requiring transfusions Fatigue Afib chronic Diastolic HF Hypothyroidism HTN HLD Hx DVT right leg recently received Lovenox bridge prior to surgery then returned to OAC Chronic back pain Neuropathy Gout Plan: IV abx cefepime to maintain Hep-Lock IV fluid Monitor hemoglobin and transfuse as needed OAC Supportive care Pain control Incentive spirometer Ambulate DC catheter Diagnosis/Problems Diagnosis/Problems (1) UTI (urinary tract infection) Qualifiers: Qualified Codes: N30.00 - Acute cystitis without hematuria (2) Dehydration (3) Weakness Status: Acute VIOLA SPEARS DO Apr 23, 2022 06:03
[2022-04-23 06:25] LABS: BASOPHILS % (AUTO) 1 % (0-10); EOSINOPHILS # (AUTO) 0.1 10^3/uL (0.0-0.3); EOSINOPHILS % (AUTO) 1 % (0-10); HEMATOCRIT 31 % (35-52); HEMOGLOBIN 9.8 g/dL (11.5-16.0); LYMPHOCYTES # (AUTO) 1.3 10^3/uL (1.0-4.0); LYMPHOCYTES % (AUTO) 17 % (12-44); MEAN CORPUSCULAR HEMOGLOBIN 29 pg (25-34); MEAN CORPUSCULAR HGB CONC 32 g/dL (32-36); MEAN CORPUSCULAR VOLUME 92 fL (80-99); MEAN PLATELET VOLUME 9.5 fL (9.0-12.2); MONOCYTES # (AUTO) 1.1 10^3/uL (0.0-1.0); MONOCYTES % (AUTO) 14 % (0-12); NEUTROPHILS # (AUTO) 5.4 10^3/uL (1.8-7.8); NEUTROPHILS % (AUTO) 68 % (42-75); PLATELET COUNT 327 10^3/uL (130-400)
[2022-04-23 06:32] LABS: ALBUMIN 3.1 GM/DL (3.2-4.5); POTASSIUM 3.6 MMOL/L (3.6-5.0)
[2022-04-23 06:33] LABS: CALCIUM 8.3 MG/DL (8.5-10.1)
[2022-04-23 06:36] LABS: BILIRUBIN,TOTAL 0.5 MG/DL (0.1-1.0)
[2022-04-23 06:38] LABS: CREATININE SERUM 0.79 MG/DL (0.60-1.30)
[2022-04-23 07:22] VITALS: BP 131/80
[2022-04-23] MEDS: APIXABAN 5 MG (ELIQUIS) TABLET PO SCH ×2 (08:51→21:17)
[2022-04-23] MEDS: ALLOPURINOL 100 MG (ZYLOPRIM) TAB PO SCH (08:51)
[2022-04-23] MEDS: dilTIAZem120 MG (CARDIZEM CD) CAP PO SCH (08:51)
[2022-04-23] MEDS: DOCUSATE SODIUM 100 MG (COLACE) CAP PO SCH ×2 (08:52→21:17)
[2022-04-23] MEDS: SENNOSIDES 8.6 MG (SENOKOT) TAB PO SCH ×2 (08:52→21:17)
--- NOTE | 2022-04-23 09:44 | Diagnostic Imaging Report ---
EXAM: CHEST 1 VIEW, AP/PA ONLY INDICATION: Fever. COMPARISON: Chest radiograph 04/22/2022. FINDINGS: Implanted loop recorder. Stable heart size and central pulmonary vascularity. Elevation of the right hemidiaphragm with mild atelectasis or infiltrate in the right lung base, stable. No pleural effusion or pneumothorax. IMPRESSION: Stable chest including mild atelectasis or infiltrate in the right lung base. Dictated by: Dictated on workstation # [id number]
--- NOTE | 2022-04-23 10:17 | Progress Note ---
Subjective Date Seen by a Provider: Apr 23, 2022 Time Seen by a Provider: 10:00 Subjective/Events-last exam Patient seen with Dr. Sierra. Patient reports doing well. Tolerating diet and having bowel movements. Denies any abdominal pain, nausea, or vomiting. Focused Exam Lactate Level 04/22/22 09:26: Lactic Acid Level 1.27 Objective Exam Vital Signs Date Time Temp Pulse Resp B/P (MAP) Pulse Ox O2 Delivery O2 Flow Rate FiO2 04/23/22 08:19 Room Air 04/23/22 07:25 90 04/23/22 07:22 37.4 87 18 131/80 (97) 94 Room Air 04/23/22 04:59 36.8 95 18 150/92 (111) 93 Room Air 04/23/22 02:24 101 04/22/22 23:50 36.8 90 20 148/97 (114) 94 Room Air 04/22/22 22:04 Room Air 04/22/22 19:28 37.1 89 19 138/71 (93) 94 Room Air 04/22/22 19:00 90 04/22/22 16:30 38.3 91 93 21 04/22/22 15:55 36.6 04/22/22 15:25 38.3 04/22/22 15:10 38.3 91 19 136/64 (88) 93 Room Air 04/22/22 14:14 Room Air 04/22/22 14:04 112 04/22/22 13:21 37.4 106 18 150/94 (112) 94 Room Air 04/22/22 12:56 82 20 126/72 95 Nasal Cannula 2.00 2.00 I & O 04/23/22 07:00 Intake Total 2450 ml Output Total 2250 ml Balance 200 ml Capillary Refill : Less Than 3 Seconds General Appearance: No Apparent Distress, WD/WN, Obese Neck: Normal Inspection, Supple Respiratory: No Accessory Muscle Use, No Respiratory Distress Gastrointestinal: normal bowel sounds, non tender, soft, other (Abdominal incisions C/D/I with skin brissa in place) Neurologic/Psychiatric: Alert, Oriented x3 Skin: Normal Color, Warm/Dry Results Lab Laboratory Tests 04/23/22 06:15: White Blood Count 8.0, Red Blood Count 3.40L, Hemoglobin 9.8L, Hematocrit 31L, Mean Corpuscular Volume 92, Mean Corpuscular Hemoglobin 29, Mean Corpuscular Hemoglobin Concent 32, Red Cell Distribution Width , Platelet Count 327, Mean Platelet Volume 9.5, Immature Granulocyte % (Auto) 0, Neutrophils (%) (Auto) 68, Lymphocytes (%) (Auto) 17, Monocytes (%) (Auto) 14H, Eosinophils (%) (Auto) 1, Basophils (%) (Auto) 1, Neutrophils # (Auto) 5.4, Lymphocytes # (Auto) 1.3, Monocytes # (Auto) 1.1H, Eosinophils # (Auto) 0.1, Basophils # (Auto) 0.0, Immature Granulocyte # (Auto) 0.0, Sodium Level 134L, Potassium Level 3.6, Chloride Level 103, Carbon Dioxide Level 21, Anion Gap 10, Blood Urea Nitrogen 15, Creatinine 0.79, Estimat Glomerular Filtration Rate 73, BUN/Creatinine Ratio 19, Glucose Level 86, Calcium Level 8.3L, Corrected Calcium 9.0, Total Bilirubin 0.5, Aspartate Amino Transf (AST/SGOT) 129H, Alanine Aminotransferase (ALT/SGPT) 57H, Alkaline Phosphatase 73, Total Protein 6.0L, Albumin 3.1L Microbiology 04/22/22 Urine Culture - Preliminary, Resulted Pseudomonas species Assessment/Plan Assessment/Plan Assess & Plan/Chief Complaint An 86 year old female with colon cancer who is S/P right hemicolectomy, UTI VSS Encourage ambulation Will remove skin brissa MARICEL BONILLA APRN Apr 23, 2022 10:17
[2022-04-23 12:00] VITALS: BP 134/82
[2022-04-23 16:10] VITALS: BP 129/66
[2022-04-23] MEDS ORDERED: VANCOMYCIN 1 GM/NS 250 ML IVPB IV SCH ×2 (20:00)
[2022-04-23 20:50] VITALS: BP 133/78
[2022-04-23 23:38] VITALS: BP 146/82
[2022-04-24] MEDS: CEFEPIME INJECTION 1,000 MG in NS (IVPB) 50 ML IV SCH ×2 (02:49→11:47)
[2022-04-24 04:40] VITALS: BP 136/84
[2022-04-24] MEDS: LEVOTHYROXINE 75 MCG (LEVOTHROID) TABLET PO SCH (05:43)
[2022-04-24] MEDS: PANTOPRAZOLE 40 MG (PROTONIX) TAB PO SCH (05:43)
[2022-04-24] MEDS: CYANOCOBALAMIN 1,000 MCG (VITAMIN B-12) TABLET PO SCH (05:43)
[2022-04-24 05:47] LABS: BASOPHILS % (AUTO) 1 % (0-10); EOSINOPHILS # (AUTO) 0.1 10^3/uL (0.0-0.3); EOSINOPHILS % (AUTO) 2 % (0-10); HEMATOCRIT 33 % (35-52); LYMPHOCYTES # (AUTO) 1.1 10^3/uL (1.0-4.0); LYMPHOCYTES % (AUTO) 22 % (12-44); MEAN CORPUSCULAR HEMOGLOBIN 29 pg (25-34); MEAN CORPUSCULAR HGB CONC 31 g/dL (32-36); MEAN CORPUSCULAR VOLUME 93 fL (80-99); MEAN PLATELET VOLUME 9.8 fL (9.0-12.2); MONOCYTES # (AUTO) 0.9 10^3/uL (0.0-1.0); MONOCYTES % (AUTO) 17 % (0-12); NEUTROPHILS % (AUTO) 58 % (42-75); PLATELET COUNT 304 10^3/uL (130-400); WHITE BLOOD COUNT 5.2 10^3/uL (4.3-11.0)
[2022-04-24 06:12] LABS: BILIRUBIN,TOTAL 0.5 MG/DL (0.1-1.0); CALCIUM 8.5 MG/DL (8.5-10.1); CREATININE SERUM 0.79 MG/DL (0.60-1.30); POTASSIUM 3.5 MMOL/L (3.6-5.0)
--- NOTE | 2022-04-24 06:42 | Progress Note ---
Subjective Date Seen by a Provider: Apr 24, 2022 Time Seen by a Provider: 11:00 Focused Exam Lactate Level 04/22/22 09:26: Lactic Acid Level 1.27 Objective Exam Last Set of Vital Signs Vital Signs Date Time Temp Pulse Resp B/P (MAP) Pulse Ox O2 Delivery O2 Flow Rate FiO2 04/24/22 04:40 36.8 81 18 136/84 (101) 95 Room Air 04/22/22 16:30 21 04/22/22 12:56 2.00 2.00 Capillary Refill : Less Than 3 Seconds I&O Intake and Output 04/24/22 00:00 Intake Total 2440 ml Output Total 1050 ml Balance 1390 ml Intake Oral 1440 ml IV Total 1000 ml Output Urine Total 1050 ml Results Lab Laboratory Tests 04/24/22 05:15: White Blood Count 5.2, Red Blood Count 3.51L, Hemoglobin 10.0L, Hematocrit 33L, Mean Corpuscular Volume 93, Mean Corpuscular Hemoglobin 29, Mean Corpuscular Hemoglobin Concent 31L, Red Cell Distribution Width , Platelet Count 304, Mean Platelet Volume 9.8, Immature Granulocyte % (Auto) 0, Neutrophils (%) (Auto) 58, Lymphocytes (%) (Auto) 22, Monocytes (%) (Auto) 17H, Eosinophils (%) (Auto) 2, Basophils (%) (Auto) 1, Neutrophils # (Auto) 3.0, Lymphocytes # (Auto) 1.1, Monocytes # (Auto) 0.9, Eosinophils # (Auto) 0.1, Basophils # (Auto) 0.0, Immature Granulocyte # (Auto) 0.0, Sodium Level 134L, Potassium Level 3.5L, Chloride Level 104, Carbon Dioxide Level 19L, Anion Gap 11, Blood Urea Nitrogen 14, Creatinine 0.79, Estimat Glomerular Filtration Rate 73, BUN/Creatinine Ratio 18, Glucose Level 90, Calcium Level 8.5, Corrected Calcium 9.3, Total Bilirubin 0.5, Aspartate Amino Transf (AST/SGOT) 159H, Alanine Aminotransferase (ALT/SGPT) 76H, Alkaline Phosphatase 76, Total Protein 6.0L, Albumin 3.0L Microbiology 04/22/22 Urine Culture - Preliminary, Resulted Pseudomonas aeruginosa Assessment/Plan Assessment/Plan Assess & Plan/Chief Complaint Assessment: Acute UTI Pseudomonas maintain on cefepime Dehydration improved Hep-Lock IV fluid Hyponatremia improved at 134 04/07/22 Status post uncomplicated right colectomy by Dr. Blake due to colon mass adenocarcinoma Anemia severe and symptomatic requiring iron infusions in the pasthemoglobin stable today Recent GI bleed 5 weeks ago requiring transfusions Fatigue Afib chronic Diastolic HF Hypothyroidism HTN HLD Hx DVT right leg recently received Lovenox bridge prior to surgery then returned to OAC Chronic back pain Neuropathy Gout Plan: IV abx cefepime to maintain Hep-Lock IV fluid Monitor hemoglobin and transfuse as needed OAC Supportive care Pain control Incentive spirometer Ambulate DC catheter Diagnosis/Problems Diagnosis/Problems (1) UTI (urinary tract infection) Qualifiers: Qualified Codes: N30.00 - Acute cystitis without hematuria (2) Dehydration (3) Weakness Status: Acute VIOLA SPEARS DO Apr 24, 2022 06:42
[2022-04-24] MEDS: dilTIAZem120 MG (CARDIZEM CD) CAP PO SCH (07:42)
[2022-04-24] MEDS: ALLOPURINOL 100 MG (ZYLOPRIM) TAB PO SCH (07:43)
[2022-04-24] MEDS: APIXABAN 5 MG (ELIQUIS) TABLET PO SCH (07:43)
[2022-04-24] MEDS: SENNOSIDES 8.6 MG (SENOKOT) TAB PO SCH ×2 (07:44→10:33)
[2022-04-24] MEDS: DOCUSATE SODIUM 100 MG (COLACE) CAP PO SCH (07:44)
[2022-04-24 08:12] VITALS: BP 137/87
[2022-04-24] MEDS ORDERED: KCL 20 MEQ TAB (K-DUR) PO ONE (10:30)
[2022-04-24] MEDS ORDERED: polyethylene glycoL POWDER 17 GM (MIRALAX) PACK PO ONE (10:30)
--- NOTE | 2022-04-24 11:00 | Progress Note - Surgery ---
Subjective Time Seen by a Provider: 10:31 Subjective/Events-last exam Pt seen and examined, was actually sitting on bedside commode. Stated she felt the urge to have BM, "but nothing coming". Denied dysuria. Review of Systems General: No Chills, No Night Sweats Pulmonary: No Dyspnea, No Cough Cardiovascular: No: Chest Pain, Palpitations Gastrointestinal: No: Nausea, Vomiting, Abdominal Pain Genitourinary: No Dysuria, No Hematuria Focused Exam Lactate Level 04/22/22 09:26: Lactic Acid Level 1.27 Objective Exam Vital Signs Date Time Temp Pulse Resp B/P (MAP) Pulse Ox O2 Delivery O2 Flow Rate FiO2 04/24/22 09:00 Room Air 04/24/22 08:12 36.9 92 20 137/87 (104) 94 Room Air 04/24/22 04:40 36.8 81 18 136/84 (101) 95 Room Air 04/23/22 23:38 36.8 90 18 146/82 (103) 92 Room Air 04/23/22 21:00 Room Air 04/23/22 20:50 36.1 94 18 133/78 (96) Room Air 04/23/22 18:44 94 Room Air 04/23/22 16:10 37.2 90 18 129/66 (87) 94 Room Air 04/23/22 12:03 92 Room Air 04/23/22 12:00 37.4 90 18 134/82 (99) 93 Room Air I & O 04/24/22 07:00 Intake Total 1660 ml Output Total 1290 ml Balance 370 ml Capillary Refill : Less Than 3 Seconds General Appearance: No Apparent Distress, Obese HEENT: PERRL/EOMI; No Tonsillar Enlargement Respiratory: Lungs Clear, Normal Breath Sounds, No Accessory Muscle Use, No Respiratory Distress Cardiovascular: Regular Rate, Rhythm, No Murmur Gastrointestinal: normal bowel sounds, non tender, soft, other (Abdominal incisions C/D/I ) Neurologic/Psychiatric: Alert, Oriented x3 Results Lab Laboratory Tests 04/24/22 05:15: White Blood Count 5.2, Red Blood Count 3.51L, Hemoglobin 10.0L, Hematocrit 33L, Mean Corpuscular Volume 93, Mean Corpuscular Hemoglobin 29, Mean Corpuscular Hemoglobin Concent 31L, Red Cell Distribution Width , Platelet Count 304, Mean Platelet Volume 9.8, Immature Granulocyte % (Auto) 0, Neutrophils (%) (Auto) 58, Lymphocytes (%) (Auto) 22, Monocytes (%) (Auto) 17H, Eosinophils (%) (Auto) 2, Basophils (%) (Auto) 1, Neutrophils # (Auto) 3.0, Lymphocytes # (Auto) 1.1, Monocytes # (Auto) 0.9, Eosinophils # (Auto) 0.1, Basophils # (Auto) 0.0, Immature Granulocyte # (Auto) 0.0, Sodium Level 134L, Potassium Level 3.5L, Chloride Level 104, Carbon Dioxide Level 19L, Anion Gap 11, Blood Urea Nitrogen 14, Creatinine 0.79, Estimat Glomerular Filtration Rate 73, BUN/Creatinine Ratio 18, Glucose Level 90, Calcium Level 8.5, Corrected Calcium 9.3, Total Bilirubin 0.5, Aspartate Amino Transf (AST/SGOT) 159H, Alanine Aminotransferase (ALT/SGPT) 76H, Alkaline Phosphatase 76, Total Protein 6.0L, Albumin 3.0L Microbiology 04/22/22 Urine Culture - Preliminary, Resulted Pseudomonas aeruginosa Assessment/Plan Assessment/Plan Assessment/Plan Acute UTI Pseudomonas maintain on cefepime Dehydration - improved Hyponatremia - improved, but still low at 134 (same as yesterday) Status post uncomplicated right colectomy by Dr. Blake for bleeding Colon CA Anemia severe and symptomatic requiring iron infusions in the pasthemoglobin stable Afib chronic Diastolic HF Hypothyroidism HTN Hx DVT right leg recently received Lovenox bridge prior to surgery then returned to OAC Chronic back pain Neuropathy Gout Plan: Continue IV abx cefepime, Hep-Lock IV fluid, Monitor hemoglobin and transfuse as needed Pain control and encourage Incentive spirometer and ambulation ARACELIS BAÑUELOS DO Apr 24, 2022 11:00
--- NOTE | 2022-04-24 12:10 | Occupational Therapy Eval ---
OT Evaluation-General/PLF Medical Diagnosis Admission Date Apr 22, 2022 at 10:45 Medical Diagnosis: dehydration, UTI Onset Date: Apr 22, 2022 Therapy Diagnosis Therapy Diagnosis: decreased ADL status Height/Weight Height (Feet): 5 Height (Inches): 4.00 Weight (Pounds): 235 Weight (Ounces): 2.0 Precautions Precautions/Isolations: Fall Prevention, Standard Precautions Referral Physician: Emmanuel Referral Reason: Evaluation/Treatment Medical History Pertinent Medical History: Atrial Fib, CAD, HTN Additional Medical History Afib, CAD, DVT, HTN, neuropathy, GERD, arthritis, skin cancer, colon cancer Current History ~5 weeks ago, pt had GI bleed and diagnosed with R colon mass found to be adenocarcinoma. 04/07/22 R colectomy with reanastomosis. 04/22 decline in status with multiple falls and inability to walk, ED via EMS from home. Social History Home: Single Level Current Living Status: Spouse Entry Into Home: Level Entry handicap accessible home. ADL-Prior Level of Function SCALE: Activities may be completed with or without assistive devices. 6-Pfoqjocpbt-bdtbnik completes the activity by him/herself with no assistance from a helper. 5-Set-up or Clean-up Assistance-helper sets up or cleans up; patient completes activity. [place] assists only prior to or following the activity. 4-Supervision or Touching Assistance-helper provides verbal cues and/or touching/steadying and/or contact guard assistance as patient completes activity. Assistance may be provided throughout the activity or intermittently. 3-Partial/Moderate Assistance-helper does LESS THAN HALF the effort. [place] lifts, holds or supports trunk or limbs, but provides less than half the effort. 2-Substantial/Maximal Assistance-helper does MORE THAN HALF the effort. [place] lifts or holds trunk or limbs and provides more than half the effort. 7-Pxnyxbbue-ihnvqd does ALL the effort. Patient does none of the effort to complete the activity. Or, the assistance of 2 or more helpers is required for the patient to complete the activity. If activity was not attempted, code reason: 7-Patient Refused. 9-Not Applicable-not attempted and the patient did not perform the activity before the current illness, exacerbation or injury. 10-Not Attempted due to Environmental Limitations-(lack of equipment, weather restraints, etc.). 88-Not Attempted due to Medical Conditions or Safety Concerns. ADL PLOF Comments Pt reports IND with ADLs and functional mobility using FWW. Pt's provides supervision with mobility and ADLs as needed, and is present during pt's showers. Self Care: Needed Some Help Functional Cognition: Independent DME/Equipment: Bath Chair, Grab Bars, Shower OT Current Status Subjective Pt in recliner, present. Agreeable to OT Tx. Mental Status/Objective Patient Orientation: Person, Place, Situation Current Upper Extremity ROM WFL, BUE shoulder flexion to approx 140 degrees Upper Extremity Coordination WFL Upper Extremity Strength grossly 3/5 ADL-Treatment Eating (QC): 5 Lower Body Dressing (QC): 1 Toileting Hygiene (QC): 1 (2 person assist per pt report.) Other Treatments Pt up in recliner, agreeable to OT Tx. Pt declines toileting at this time, states she has completed recently. Pt and spouse report 2 person assistance required with toileting on BSC. Pt declines attempting footwear, states she only wears house shoes at home, no socks. Pt agreeable to UE exercises in order to increase BUE Strength and activity tolerance. Pt completed x10 reps each of the following BUE exercises: shoulder flexion, elbow flexion/extension, front punch. Pt instructed to complete exercises throughout the day, increasing reps as t olerated, she verbalized understanding. Post tx, pt in recliner, call light in reach and all needs met, present. Education OT Patient Education: Correct positioning, Energy conservation, Modified ADL techniques, Progress toward Goal/Update tx plan, Purpose of tx/functional activities, Rehab process Teaching Recipient: Patient Teaching Methods: Discussion Response to Teaching: Verbalize Understanding OT Assisted Goals Assisted Goals Time Frame: May 12, 2022 Eating (QC): 6 Oral Hygiene (QC): 6 Toileting Hygiene (QC): 4 Shower/Bathe Self (QC): 4 Upper Body Dressing (QC): 5 Lower Body Dressing (QC): 4 On/Off Footwear (QC): 4 Additional Goals: 1-Demonstrate ADL Tasks, 2-Verbalize Understanding, 3- ImproveStrength/Pauline 1=Demonstrate adherence to instructed precautions during ADL tasks. 2=Patient will verbalize/demonstrate understanding of assistive devices/modifications for ADL. 3=Patient will improve strength/tolerance for activity to enable patient to perform ADL's. OT Education/Plan Problem List/Assessment Assessment: Decreased Activ Tolerance, Decreased UE Strength, Impaired Funct Balance, Impaired I ADL's, Impaired Self-Care Skills Discharge Recommendations Plan/Recommendations: Continue POC Treatment Plan/Plan of Care Patient would benefit from OT for education, treatment and training to promote independence in ADL's, mobility, safety and/or upper extremity function for ADL's. Plan of Care: ADL Retraining, Functional Mobility, UE Funct Exercise/Act Treatment Duration: May 12, 2022 Frequency: 3 times per week (3-5 times per week) Estimated Hrs Per Day: .25 hour per day Agreement: Yes Rehab Potential: Guarded Time Start Time: 11:21 Stop Time: 11:33 DATE: Apr 24, 2022 Total Time Billed (hr/min): 12 Billed Treatment Time 1, KIKO VIDAL OT Apr 24, 2022 12:10
[2022-04-24 12:25] VITALS: BP 119/78
--- NOTE | 2022-04-24 12:59 | Discharge Summary ---
Diagnosis/Chief Complaint Date of Admission Apr 22, 2022 at 10:45 Date of Discharge Discharge Date: Apr 24, 2022 Discharge Diagnosis Assessment: Acute UTI Pseudomonas maintain on cefepime Dehydration improved Hep-Lock IV fluid Hyponatremia improved at 134 04/07/22 Status post uncomplicated right colectomy by Dr. Blake due to colon mass adenocarcinoma Anemia severe and symptomatic requiring iron infusions in the pasthemoglobin stable today Recent GI bleed 5 weeks ago requiring transfusions Fatigue Afib chronic Diastolic HF Hypothyroidism HTN HLD Hx DVT right leg recently received Lovenox bridge prior to surgery then returned to OAC Chronic back pain Neuropathy Gout Plan: IV abx cefepime to maintain Hep-Lock IV fluid Monitor hemoglobin and transfuse as needed OAC Supportive care Pain control Incentive spirometer Ambulate DC catheter Discharge Summary Discharge Physical Examination Allergies: Coded Allergies: No Known Drug Allergies (Verified , 04/06/22) Vitals & I&Os Vital Signs Date Time Temp Pulse Resp B/P (MAP) Pulse Ox O2 Delivery O2 Flow Rate FiO2 04/24/22 13:30 37.4 88 20 119/78 92 Room Air 2.00 04/22/22 16:30 21 General Appearance: Alert, Oriented X3, Cooperative, Other (Weak) Respiratory: Clear to Auscultation Cardiovascular: Regular Rate Psych/Mental Status: Mental Status NL Hospital Course Was the Problem List Reviewed?: Yes Standard hospital course after she was admitted for suspected sepsis with altered mental status weakness and abnormal UA. Patient was placed on cefepime empirically due to recent Augmentin use for incisional cellulitis. She was found to have Pseudomonas UTI maintain on cefepime and severe weakness required PT and OT and transferred down to inpatient rehab. Labs (last 24 hrs) Laboratory Tests 04/22/22 06:15: Iron Level 43, Vitamin B12 Level 437 04/22/22 06:54: Influenza Type A (RT-PCR) Not Detected, Influenza Type B (RT-PCR) Not Detected, SARS-CoV-2 RNA (RT-PCR) Not Detected 04/22/22 07:25: Urine Color YELLOW, Urine Clarity TURBID, Urine pH 5.0, Urine Specific Mobile >=1.030, Urine Protein 1+H, Urine Glucose (UA) NEGATIVE, Urine Ketones NEGATIVE, Urine Nitrite NEGATIVE, Urine Bilirubin NEGATIVE, Urine Urobilinogen 0.2, Urine Leukocyte Esterase 2+H, Urine RBC (Auto) NEGATIVE, Urine RBC NONE, Urine WBC 25- 50H, Urine Squamous Epithelial Cells 10-25H, Urine Crystals NONE, Urine Bacteria FEWH, Urine Casts NONE, Urine Mucus SMALLH, Urine Yeast MODERATEH, Urine Culture Indicated YES 04/22/22 09:26: White Blood Count 9.2, Red Blood Count 3.72L, Hemoglobin 10.5L, Hematocrit 34L, Mean Corpuscular Volume 91, Mean Corpuscular Hemoglobin 28, Mean Corpuscular Hemoglobin Concent 31L, Red Cell Distribution Width , Platelet Count 270, Mean Platelet Volume 10.3, Immature Granulocyte % (Auto) 1, Neutrophils (%) (Auto) 68, Lymphocytes (%) (Auto) 19, Monocytes (%) (Auto) 12, Eosinophils (%) (Auto) 1, Basophils (%) (Auto) 1, Neutrophils # (Auto) 6.3, Lymphocytes # (Auto) 1.7, Monocytes # (Auto) 1.1H, Eosinophils # (Auto) 0.1, Basophils # (Auto) 0.1, Immature Granulocyte # (Auto) 0.1, Percent Immature Platelet Fraction 7.6, Prothrombin Time 16.6H, INR Comment 1.3, Activated Partial Thromboplast Time 23L , Sodium Level 131L, Potassium Level 4.4, Chloride Level 100, Carbon Dioxide Level 18L, Anion Gap 13, Blood Urea Nitrogen 21H, Creatinine 1.10, Estimat Glom erular Filtration Rate 49, BUN/Creatinine Ratio 19, Glucose Level 90, Lactic Acid Level 1.27, Calcium Level 8.8, Corrected Calcium 9.3, Total Bilirubin 0.4, Aspartate Amino Transf (AST/SGOT) 90H, Alanine Aminotransferase (ALT/SGPT) 43, Alkaline Phosphatase 92, C-Reactive Protein High Sensitivity 2.54H, B-Type Natriuretic Peptide 50.2, Total Protein 7.0, Albumin 3.4, Procalcitonin 0.09 04/23/22 06:15: White Blood Count 8.0, Red Blood Count 3.40L, Hemoglobin 9.8L, Hematocrit 31L, Mean Corpuscular Volume 92, Mean Corpuscular Hemoglobin 29, Mean Corpuscular Hemoglobin Concent 32, Red Cell Distribution Width , Platelet Count 327, Mean Platelet Volume 9.5, Immature Granulocyte % (Auto) 0, Neutrophils (%) (Auto) 68, Lymphocytes (%) (Auto) 17, Monocytes (%) (Auto) 14H, Eosinophils (%) (Auto) 1, Basophils (%) (Auto) 1, Neutrophils # (Auto) 5.4, Lymphocytes # (Auto) 1.3, Monocytes # (Auto) 1.1H, Eosinophils # (Auto) 0.1, Basophils # (Auto) 0.0, Immature Granulocyte # (Auto) 0.0, Sodium Level 134L, Potassium Level 3.6, Chloride Level 103, Carbon Dioxide Level 21, Anion Gap 10, Blood Urea Nitrogen 15, Creatinine 0.79, Estimat Glomerular Filtration Rate 73, BUN/Creatinine Ratio 19, Glucose Level 86, Calcium Level 8.3L, Corrected Calcium 9.0, Total Bilirubin 0.5, Aspartate Amino Transf (AST/SGOT) 129H, Alanine Aminotransferase (ALT/SGPT) 57H, Alkaline Phosphatase 73, Total Protein 6.0L, Albumin 3.1L 04/24/22 05:15: White Blood Count 5.2, Red Blood Count 3.51L, Hemoglobin 10.0L, Hematocrit 33L, Mean Corpuscular Volume 93, Mean Corpuscular Hemoglobin 29, Mean Corpuscular Hemoglobin Concent 31L, Red Cell Distribution Width , Platelet Count 304, Mean Platelet Volume 9.8, Immature Granulocyte % (Auto) 0, Neutrophils (%) (Auto) 58, Lymphocytes (%) (Auto) 22, Monocytes (%) (Auto) 17H, Eosinophils (%) (Auto) 2, Basophils (%) (Auto) 1, Neutrophils # (Auto) 3.0, Lymphocytes # (Auto) 1.1, Monocytes # (Auto) 0.9, Eosinophils # (Auto) 0.1, Basophils # (Auto) 0.0, Immature Granulocyte # (Auto) 0.0, Sodium Level 134L, Potassium Level 3.5L, Chloride Level 104, Carbon Dioxide Level 19L, Anion Gap 11, Blood Urea Nitrogen 14, Creatinine 0.79, Estimat Glomerular Filtration Rate 73, BUN/Creatinine Ratio 18, Glucose Level 90, Calcium Level 8.5, Corrected Calcium 9.3, Total Bilirubin 0.5, Aspartate Amino Transf (AST/SGOT) 159H, Alanine Aminotransferase (ALT/SGPT) 76H, Alkaline Phosphatase 76, Total Protein 6.0L, Albumin 3.0L Microbiology 04/22/22 Blood Culture - Preliminary, Resulted No growth 04/22/22 Urine Culture - Final, Complete Pseudomonas aeruginosa Pending Labs Microbiology Date/Time Source Procedure Growth Status 04/22/22 09:11 Peripheral Rt Ac Blood Culture - Preliminary No growth Resulted 04/22/22 08:50 Peripheral Lt Hand Blood Culture - Preliminary Staph, Coag Neg (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) See Comments Resulted 04/22/22 07:25 Urine Clean Catch Urine Culture - Final Pseudomonas aeruginosa Complete Laboratory Tests 04/22/22 06:15: Iron Level 43, Vitamin B12 Level 437 04/22/22 06:54: Influenza Type A (RT-PCR) Not Detected, Influenza Type B (RT-PCR) Not Detected, SARS-CoV-2 RNA (RT-PCR) Not Detected 04/22/22 07:25: Urine Color YELLOW, Urine Clarity TURBID, Urine pH 5.0, Urine Specific Mobile >=1.030, Urine Protein 1+, Urine Glucose (UA) NEGATIVE, Urine Ketones NEGATIVE, Urine Nitrite NEGATIVE, Urine Bilirubin NEGATIVE, Urine Urobilinogen 0.2, Urine Leukocyte Esterase 2+, Urine RBC (Auto) NEGATIVE, Urine RBC NONE, Urine WBC 25- 50, Urine Squamous Epithelial Cells 10-25, Urine Crystals NONE, Urine Bacteria FEW, Urine Casts NONE, Urine Mucus SMALL, Urine Yeast MODERATE, Urine Culture Indicated YES 04/22/22 09:26: White Blood Count 9.2, Red Blood Count 3.72, Hemoglobin 10.5, Hematocrit 34, Mean Corpuscular Volume 91, Mean Corpuscular Hemoglobin 28, Mean Corpuscular Hemoglobin Concent 31, Red Cell Distribution Width , Platelet Count 270, Mean Platelet Volume 10.3, Immature Granulocyte % (Auto) 1, Neutrophils (%) (Auto) 68, Lymphocytes (%) (Auto) 19, Monocytes (%) (Auto) 12, Eosinophils (%) (Auto) 1, Basophils (%) (Auto) 1, Neutrophils # (Auto) 6.3, Lymphocytes # (Auto) 1.7, Monocytes # (Auto) 1.1, Eosinophils # (Auto) 0.1, Basophils # (Auto) 0.1, Immature Granulocyte # (Auto) 0.1, Percent Immature Platelet Fraction 7.6, Prothrombin Time 16.6, INR Comment 1.3, Activated Partial Thromboplast Time 23, Sodium Level 131, Potassium Level 4.4, Chloride Level 100, Carbon Dioxide Level 18, Anion Gap 13, Blood Urea Nitrogen 21, Creatinine 1.10, Estimat Glomerular Filtration Rate 49, BUN/Creatinine Ratio 19, Glucose Level 90, Lactic Acid Level 1.27, Calcium Level 8.8, Corrected Calcium 9.3, Total Bilirubin 0.4, Aspartate Amino Transf (AST/SGOT) 90, Alanine Aminotransferase (ALT/SGPT) 43, Alkaline Phosphatase 92, C-Reactive Protein High Sensitivity 2.54, B-Type Natriuretic Peptide 50.2, Total Protein 7.0, Albumin 3.4, Procalcitonin 0.09 04/23/22 06:15: White Blood Count 8.0, Red Blood Count 3.40, Hemoglobin 9.8, Hematocrit 31, Mean Corpuscular Volume 92, Mean Corpuscular Hemoglobin 29, Mean Corpuscular Hemoglobin Concent 32, Red Cell Distribution Width , Platelet Count 327, Mean Platelet Volume 9.5, Immature Granulocyte % (Auto) 0, Neutrophils (%) (Auto) 68, Lymphocytes (%) (Auto) 17, Monocytes (%) (Auto) 14, Eosinophils (%) (Auto) 1, Basophils (%) (Auto) 1, Neutrophils # (Auto) 5.4, Lymphocytes # (Auto) 1.3, Monocytes # (Auto) 1.1, Eosinophils # (Auto) 0.1, Basophils # (Auto) 0.0, Immature Granulocyte # (Auto) 0.0, Sodium Level 134, Potassium Level 3.6, Chloride Level 103, Carbon Dioxide Level 21, Anion Gap 10, Blood Urea Nitrogen 15, Creatinine 0.79, Estimat Glomerular Filtration Rate 73, BUN/Creatinine Ratio 19, Glucose Level 86, Calcium Level 8.3, Corrected Calcium 9.0, Total Bilirubin 0.5, Aspartate Amino Transf (AST/SGOT) 129, Alanine Aminotransferase (ALT/SGPT) 57, Alkaline Phosphatase 73, Total Protein 6.0, Albumin 3.1 04/24/22 05:15: White Blood Count 5.2, Red Blood Count 3.51, Hemoglobin 10.0, Hematocrit 33, Mean Corpuscular Volume 93, Mean Corpuscular Hemoglobin 29, Mean Corpuscular Hemoglobin Concent 31, Red Cell Distribution Width , Platelet Count 304, Mean Platelet Volume 9.8, Immature Granulocyte % (Auto) 0, Neutrophils (%) (Auto) 58, Lymphocytes (%) (Auto) 22, Monocytes (%) (Auto) 17, Eosinophils (%) (Auto) 2, Basophils (%) (Auto) 1, Neutrophils # (Auto) 3.0, Lymphocytes # (Auto) 1.1, Monocytes # (Auto) 0.9, Eosinophils # (Auto) 0.1, Basophils # (Auto) 0.0, Immature Granulocyte # (Auto) 0.0, Sodium Level 134, Potassium Level 3.5, Chloride Level 104, Carbon Dioxide Level 19, Anion Gap 11, Blood Urea Nitrogen 14, Creatinine 0.79, Estimat Glomerular Filtration Rate 73, BUN/Creatinine Ratio 18, Glucose Level 90, Calcium Level 8.5, Corrected Calcium 9.3, Total Bilirubin 0.5, Aspartate Amino Transf (AST/SGOT) 159, Alanine Aminotransferase (ALT/SGPT) 76, Alkaline Phosphatase 76, Total Protein 6.0, Albumin 3.0 Discharge Home Medications: Active Scripts Active HYDROcodone/APAP 5 MG/325 MG TAB (Acetaminophen/Hydrocodone Bitart) 1 Tab Tab 1 Ea PO Q6H PRN Eliquis (Apixaban) 5 Mg Tablet 5 Mg PO BID 365 Days Vitamin B-12 (Cyanocobalamin (Vitamin B-12)) 1,000 Mcg Tablet 1,000 Mcg PO DAILY@0700 Pantoprazole Sodium 40 Mg Tablet.dr 40 Mg PO DAILY@0700 Amlodipine Besylate 5 Mg Tablet 5 Mg PO DAILY 7 Days hold until approved by Dr Benitez Reported Benazepril HCl 40 Mg Tab 40 Mg PO DAILY Preservision Areds Softgel (Vit A/C/E/Zinc/Co) 14,320-226 Capsule 1 Cap PO DAILY Diltiazem 24Hr ER (Diltiazem HCl) 120 Mg Cap.er.24h 120 Mg PO DAILY Vitamin D3 (Cholecalciferol (Vitamin D3)) 25 Mcg Capsule 25 Mcg PO DAILY Coq-10 (Ubidecarenone) 100 Mg Capsule 100 Mg PO DAILY Levothyroxine Sodium 75 Mcg Tablet 75 Mcg PO DAILY Allopurinol 100 Mg Tablet 100 Mg PO DAILY Furosemide 20 Mg Tablet 20 Mg PO DAILY Potassium Chloride 10 Meq Capsule.er 10 Meq PO DAILY Instructions to patient/family Please see electronic discharge instructions given to patient. Diagnosis/Problems Diagnosis/Problems (1) UTI (urinary tract infection) Qualifiers: Qualified Codes: N30.00 - Acute cystitis without hematuria (2) Dehydration (3) Weakness Status: Acute VIOLA BENITEZ DO Apr 24, 2022 12:59
[2022-04-24 13:30] VITALS: BP 119/78
[2022-04-24] MEDS ORDERED: TROUGH ORDER-PHARMACY XX ONE (19:00)
[2022-04-25] MEDS ORDERED: KCL 20 MEQ TAB (K-DUR) PO SCH (07:00)
== END 2022-04-24 13:10 | DRG 690 ==
LOC: EDUNIT# 06:48 → ER 06:51 → 4TH 10:45
PROVIDERS: ADMIT Internal Medicine; ATTEND Internal Medicine
DX: N39.0 Urinary tract infection, site not specified (principal); T81.41XA Infection following a procedure, superficial incisional surgical site, initial encounter; E87.1 Hypo-osmolality and hyponatremia; I48.20 Chronic atrial fibrillation, unspecified; I50.30 Unspecified diastolic (congestive) heart failure; E86.0 Dehydration; I25.10 Atherosclerotic heart disease of native coronary artery without angina pectoris; I11.0 Hypertensive heart disease with heart failure; Z20.822 Contact with and (suspected) exposure to COVID-19; E78.00 Pure hypercholesterolemia, unspecified; G62.9 Polyneuropathy, unspecified; K21.9 Gastro-esophageal reflux disease without esophagitis; E03.9 Hypothyroidism, unspecified; M19.91 Primary osteoarthritis, unspecified site; D64.9 Anemia, unspecified; M10.9 Gout, unspecified; R53.83 Other fatigue; H91.90 Unspecified hearing loss, unspecified ear; B96.5 Pseudomonas (aeruginosa) (mallei) (pseudomallei) as the cause of diseases classified elsewhere; Z79.01 Long term (current) use of anticoagulants; Z85.038 Personal history of other malignant neoplasm of large intestine; Z85.828 Personal history of other malignant neoplasm of skin; Z86.718 Personal history of other venous thrombosis and embolism
CPT/HCPCS: 36415; 51702; 71045; 80053; 81000; 82607; 83540; 83605; 83880; 84145; 85025; 85610; 85730; 86141; 87040; 87077; 87088; 87186; 87636; 94760

== ENCOUNTER 2022-04-24 12:46 | Inpatient (IN) | payer MEDICARE, OTHER ==
[~2022-04-24] VITALS: Ht 163 cm; Wt 97.0 kg
[2022-04-24] MEDS ORDERED: FLEET ENEMA ADULT 1 EA BTL PR PRN (13:00)
[2022-04-24] MEDS ORDERED: MELATONIN 3 MG TABLET PO PRN ×2 (13:00→14:30)
[2022-04-24] MEDS ORDERED: diphenhydrAMINE 25 MG TAB (BENADRYL) PO PRN ×2 (13:00→14:30)
[2022-04-24] MEDS ORDERED: guaiFENesin/CODEINE (ROBITUSSIN AC) 10ML UDC PO PRN (13:00)
[2022-04-24] MEDS ORDERED: ALPRAZolam 0.25 MG (XANAX) TAB PO PRN (13:00)
[2022-04-24] MEDS ORDERED: LOPERAMIDE 2 MG (IMODIUM) TABLET PO PRN (13:00)
[2022-04-24] MEDS ORDERED: DOCUSATE SODIUM 100 MG (COLACE) CAP PO PRN (13:00)
[2022-04-24] MEDS ORDERED: BISACODYL 10 MG SUPP (DULCOLAX) PR PRN ×2 (13:00→14:30)
[2022-04-24] MEDS ORDERED: LACTULOSE SYRUP 10GM/15ML (ENULOSE) 30ML UDC PO PRN ×2 (13:00→14:30)
[2022-04-24] MEDS ORDERED: ONDANSETRON 4 MG (ZOFRAN) ORAL DISSOLVE TAB PO PRN ×2 (13:00→14:30)
[2022-04-24] MEDS ORDERED: CALCIUM CARBONATE 500 MG (TUMS) TAB.CHEW PO PRN ×2 (13:00→14:30)
--- NOTE | 2022-04-24 13:02 | PM&R Post Admission Assessment ---
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 She has had multiple complications which started with a GI bleed 5 weeks ago requiring transfusions and iron infusions and was ultimately scoped and found to have colon cancer of the right colon resulting in a resection of the right colon on 04/07/[address] Blake then seen in my office this past Sunday was found to have cellulitis of the incision line placed on Augmentin and was doing well but had multiple falls at home and was sent to the ER by EMS due to severe weakness and found to have UTI and now is maintained on cefepime for Pseudomonas UTI but is so weak she requir es inpatient rehab. Fourth floor admit HPI: Chief complaint: Severe weakness from UTI and clinical status decline HPI: This is an 86-year-old female clinic patient of [facility] who has had a recent decline in function due to GI bleed 5 weeks ago which resulted in scopes by Dr. Blake diagnosing a right colon mass biopsied and found to be adenocarcinoma requiring a right colectomy with reanastomosis on 04/07/2022. She has had multiple complications including transfusion was needed during the initial GI bleed episode and iron infusions then right leg cellulitis with DVT requiring Lovenox for bridging prior to right-sided colectomy requiring heparin drip and close monitoring with good return of bowel function and activity and I had seen her in clinic on Sunday with normal labs and regaining of hemoglobin of 10 but she had a significant decline in status yesterday with multiple falls and today could no longer walk. She was assessed to have no evidence of sepsis but UTI was diagnosed and dehydration so the plan will be for cefepime empiric coverage due to recent Augmentin use for incisional cellulitis started on Sunday in case it is Pseudomonas. I will also add vancomycin to cover for Enterococcus. Assessment: Acute UTI Dehydration Hyponatremia 04/07/22 Status post uncomplicated right colectomy by Dr. Blake due to colon mass adenocarcinoma Anemia severe and symptomatic requiring iron infusions in the past Recent GI bleed 5 weeks ago requiring transfusions Fatigue Afib chronic Diastolic HF Hypothyroidism HTN HLD Hx DVT right leg recently received Lovenox bridge prior to surgery then returned to OAC Chronic back pain Neuropathy Gout Plan: IV abx Gentle IVF Monitor hemoglobin and transfuse as needed OAC Supportive care Pain control Incentive spirometer Ambulate Past [id number] Hx Past Med/Social Hx: Reviewed Nursing Past Med/Soc Hx, Reviewed and Corrections made Patient Social History Marrital Status: Employed/Student: retired Alcohol Use: Denies Use Drug of Choice: Denies Smoking Status: Never a Smoker Recent Hopitalizations: Yes (03/21 - anemic - blood clot right leg post hospital stay) Immunizations Up To Date Tetanus Booster (TDap): Unknown Date of Pneumonia Vaccine: Jan 11, 2016 Date of Influenza Vaccine: Feb 13, 2022 Seasonal Allergies Seasonal Allergies: No Past Medical History Surgeries: Abdominal, Orthopedic Respiratory: Pneumonia Currently Using CPAP: No Currently Using BIPAP: No Cardiac: Atrial Fibrillation, Chronic Edema/Swelling, Coronary Artery Disease, Deep Vein Thrombosis, High Cholesterol, Hypertension Neurological: Neuropathy Reproductive: No Sexually Transmitted Disease: No Hysterectomy, Menopausal Genitourinary: Bladder Infection Gastrointestinal: Gastroesophageal Reflux Musculoskeletal: Arthritis, Chronic Back Pain Endocrine: Hypothyroidsim Hearing Impairment: Hard of Hearing Cancer: Skin, Colon What Type of Treatment Did You: Surgical Intervention History of Blood Disorders: Yes (anemia) Adverse Reaction to Blood Flores: No Family History No Pertinent Family Hx PM&R Allergy/Meds/Data Review Allergies Coded Allergies: No Known Drug Allergies (Verified , 04/06/22) Home Medications Scheduled Allopurinol (Allopurinol), 100 MG PO DAILY, (Reported) Amlodipine Besylate (Amlodipine Besylate), 5 MG PO DAILY Apixaban (Eliquis), 5 MG PO BID Benazepril HCl (Benazepril HCl), 40 MG PO DAILY, (Reported) Cholecalciferol (Vitamin D3) (Vitamin D3), 25 MCG PO DAILY, (Reported) Cyanocobalamin (Vitamin B-12) (Vitamin B-12), 1,000 MCG PO DAILY@0700 Diltiazem HCl (Diltiazem 24Hr ER), 120 MG PO DAILY, (Reported) Furosemide (Furosemide), 20 MG PO DAILY, (Reported) Levothyroxine Sodium (Levothyroxine Sodium), 75 MCG PO DAILY, (Reported) Pantoprazole Sodium (Pantoprazole Sodium), 40 MG PO DAILY@0700 Potassium Chloride (Potassium Chloride), 10 MEQ PO DAILY, (Reported) Ubidecarenone (Coq-10), 100 MG PO DAILY, (Reported) Vit A/C/E/Zinc/Co (Preservision Areds Softgel), 1 CAP PO DAILY, (Reported) Scheduled PRN Hydrocodone Bit/Acetaminophen (HYDROcodone/APAP 5 MG/325 MG TAB), 1 EA PO Q6H PRN for PAIN-MODERATE (5-7) Current Medications Current Medications Reviewed Review of Systems Constitutional: see HPI, malaise, weakness EENTM: no symptoms reported Respiratory: no symptoms reported Cardiovascular: no symptoms reported Gastrointestinal: constipation Genitourinary: no symptoms reported Musculoskeletal: back pain, joint pain Skin: no symptoms reported Psychiatric/Neurological: Anxiety, Depressed, Weakness All Other Systems Reviewed Negative Unless Noted: Yes Physical Exam Physical Exam Vital Signs Capillary Refill : Height, Weight, BMI Height: 5'4.00" Weight: 235lbs. 2.0oz. [id number]; 36.57 BMI Method:Stated General Appearance: No Apparent Distress, WD/WN, Chronically ill, Obese, Other (Weak and fragile) Eyes: Bilateral Eye Normal Inspection, Bilateral Eye PERRL HEENT: PERRL/EOMI, Normal ENT Inspection, Pharynx Normal Neck: Full Range of Motion, Normal Inspection, Non Tender, Supple, Carotid Bruit Respiratory: Chest Non Tender, Lungs Clear, Normal Breath Sounds, No Accessory Muscle Use, No Respiratory Distress Cardiovascular: No Edema, No Gallop, No JVD, No Murmur, Normal Peripheral Pulses, Irregularly Irregular Gastrointestinal: Normal Bowel Sounds, No Organomegaly, No Pulsatile Mass, Non Tender, Soft Back: Normal Inspection, No CVA Tenderness, No Vertebral Tenderness Extremity: Normal Capillary Refill, Normal Inspection, Normal Range of Motion, Non Tender, No Calf Tenderness, No Pedal Edema Neurologic/Psychiatric: Alert, Oriented x3, No Motor/Sensory Deficits, digital marketing lead II- XII Norm as Tested, Abnormal Gait, Depressed Affect, Motor Weakness (Generalized 4/5) Skin: Normal Color, Warm/Dry Lymphatic: No Adenopathy PM&R Medical Assessment & Plan REHAB/MEDICAL ASSESSMENT AND PLAN: REHAB IMPAIRMENT GROUP: Disuse myopathy ETIOLOGIC DIAGNOSIS: Disuse myopathy The comorbidities that impact the patients function and/or functional outcome by: Advanced age, colon cancer diagnosis, severe anemia, Pseudomonas UTI REHAB PLAN: The patient is being admitted to our comprehensive inpatient rehabilitation facility and can tolerate the intensity of service consisting of at least: 180 minutes of therapy a day, 5 out of 7 days a week Rehab treatment will consist of: PT and OT will focus on regaining function with use of assistive devices in order to increase stamina to increase independence in ADLs in order to return back home with spouse The patient/family has a good understanding of our discharge process and will benefit from an interdisciplinary inpatient rehabilitation program. The patient has potential to make improvement and is in need of at least two of the following multidisciplinary therapies including but not limited to physical, occupational, speech, and prosthetics and orthotics. Additionally the patient will need services from respiratory, nutritional services, wound care, psychology, etc. (Customize this to each patient). Given the patients complex condition and risk of further medical complications, rehabilitation services cannot be safely or effectively provided at a lower level of care such as a senior care facility. BARRIERS TO DISCHARGE: Advanced age and severe weakness ESTIMATED LOS: 7 days DISPOSITION: Home with spouse RELEVANT CHANGES SINCE PREADMISSION SCREENING: I have compared the patients medical and functional status at the time of the preadmission screening and there are: No changes PROGNOSIS: Guarded REHABILITATION GOALS: 1. PT and OT will focus on regaining function with use of assistive devices in order to increase stamina to increase independence in ADLs in order to return back home with spouse All the above goals were reviewed with the patient and he/she is in agreement. By signing this document, I acknowledge that I have personally performed a full physical examination on this patient within 24 hours of admission to this inpatient rehabilitation facility and have determined the patient to be able to tolerate the above course of treatment at an intensive level for a reasonable period of time. I will be completing a detailed individualized Plan of Care for this patient by day #4 of the patients stay based upon the Preadmission Screen, the Post-Admission Evaluation, and the therapy evaluations. Admission Dx/Comorbidities: (1) Pseudomonas urinary tract infection ICD Codes: N39.0 - Urinary tract infection, site not specified; B96.5 - Pseudomonas (aeruginosa) (mallei) (pseudomallei) as the cause of diseases classified elsewhere (2) Myopathy ICD Codes: G72.9 - Myopathy, unspecified (3) Dehydration ICD Codes: E86.0 - Dehydration (4) Weakness Status: Acute ICD Codes: R53.1 - Weakness (5) Symptomatic anemia Status: Acute ICD Codes: D64.9 - Anemia, unspecified (6) Anticoagulant long-term use Status: Chronic ICD Codes: Z79.01 - [facility] (current) use of anticoagulants (7) Hypertension Status: Chronic ICD Codes: I10 - Essential (primary) hypertension (8) DVT (deep venous thrombosis) Status: Acute ICD Codes: I82.409 - Acute embolism and thrombosis of unspecified deep veins of unspecified lower extremity (9) Spinal stenosis Status: Chronic ICD Codes: M48.00 - Spinal stenosis, site unspecified (10) Hypothyroidism Status: Chronic ICD Codes: E03.9 - Hypothyroidism, unspecified (11) Gout Status: Chronic ICD Codes: M10.9 - Gout, unspecified Assessment/Plan Assessment and Plan Assess & Plan/Chief Complaint Assessment: Disuse myopathy Acute UTI Pseudomonas maintain on cefepime Dehydration improved Hep-Lock IV fluid Hyponatremia resolved 04/07/22 Status post uncomplicated right colectomy by Dr. Blake due to colon mass adenocarcinoma Anemia severe and symptomatic requiring iron infusions in the pasthemoglobin stable today Recent GI bleed 5 weeks ago requiring transfusions Fatigue Afib chronic Diastolic HF Hypothyroidism HTN HLD Hx DVT right leg recently received Lovenox bridge prior to surgery then returned to OAC Chronic back pain Neuropathy Gout Plan: IV abx cefepime to maintain Hep-Lock IV fluid Monitor hemoglobin and transfuse as needed OAC Supportive care Pain control Incentive spirometer Ambulate DC catheter Inpatient rehab VIOLA SPEARS DO Apr 24, 2022 13:02
[2022-04-24 13:15] VITALS: BP 128/74
[2022-04-24] MEDS ORDERED: morphine INJ 4 MG/ML 1 ML (VIAL/SYRINGE) IV PRN (14:30)
[2022-04-24] MEDS ORDERED: HYDROcodone/APAP 5 MG/325 MG (LORTAB) TAB PO PRN (14:30)
[2022-04-24] MEDS ORDERED: RT-ALBUTEROL SULF 2.5 MG/3 ML PRE-MIX VIAL INH PRN (14:30)
[2022-04-24] MEDS ORDERED: MILK OF MAGNESIA 400 MG/5 ML 30 ML UDC PO PRN (14:30)
[2022-04-24] MEDS ORDERED: ACETAMINOPHEN 325 MG TABLET PO PRN (14:30)
[2022-04-24] MEDS ORDERED: ONDANSETRON 4 MG/2 ML (SDV) Z0FRAN IV PRN (14:30)
[2022-04-24] MEDS ORDERED: polyethylene glycoL POWDER 17 GM (MIRALAX) PACK PO PRN (14:30)
[2022-04-24] MEDS ORDERED: ANTACID SUSP 30 ML UDC (MYLANTA) PO PRN (14:30)
[2022-04-24] MEDS ORDERED: diphenhydrAMINE 50 MG/ML INJ (BENADRYL) IVP PRN (14:30)
--- NOTE | 2022-04-24 14:45 | Physical Therapy Evaluation ---
PT Evaluation-General Medical Diagnosis Admission Date Apr 24, 2022 at 13:10 Medical Diagnosis: disuse myopathy Onset Date: Apr 22, 2022 Therapy Diagnosis Therapy Diagnosis: impaired mobility, strength Height/Weight Height (Feet): 5 Height (Inches): 4.00 Weight (Pounds): 235 Weight (Ounces): 2.0 Precautions Precautions/Isolations: Fall Prevention, Standard Precautions Referral Physician: Ling Benitez DO Reason for Referral: Evaluation/Treatment Medical History Pertinent Medical History: Atrial Fib, CAD, HTN Additional Medical History Past Medical History Surgeries: Abdominal, Orthopedic Respiratory: Pneumonia Currently Using CPAP: No Currently Using BIPAP: No Cardiac: Atrial Fibrillation, Chronic Edema/Swelling, Coronary Artery Disease, Deep Vein Thrombosis, High Cholesterol, Hypertension Neurological: Neuropathy Reproductive: No Sexually Transmitted Disease: No Hysterectomy, Menopausal Genitourinary: Bladder Infection Gastrointestinal: Gastroesophageal Reflux Musculoskeletal: Arthritis, Chronic Back Pain Endocrine: Hypothyroidsim Hearing Impairment: Hard of Hearing Cancer: Skin, Colon What Type of Treatment Did You: Surgical Intervention History of Blood Disorders: Yes (anemia) Adverse Reaction to Blood Flores: No Current History recent decline in function due to GI bleed 5 weeks ago which resulted in scopes by Dr. Blake diagnosing a right colon mass biopsied and found to be adenocarcinoma requiring a right colectomy with reanastomosis on 04/07/2022. She has had multiple complications including transfusion was needed during the initial GI bleed episode and iron infusions then right leg cellulitis with DVT requiring Lovenox for bridging prior to right-sided colectomy requiring heparin drip and close monitoring with good return of bowel function and activity Reviewed History: Yes Social History Home: Single Level Current Living Status: Spouse Entry Into Home: Level Entry Prior Prior Level of Function SCALE: Activities may be completed with or without assistive devices. 1-Lhglpzexfk-vkjolzt completes the activity by him/herself with no assistance from a helper. 5-Set-up or Clean-up Assistance-helper sets up or cleans up; patient completes activity. [place] assists only prior to or following the activity. 4-Supervision or Touching Assistance-helper provides verbal cues and/or touching/steadying and/or contact guard assistance as patient completes activity. Assistance may be provided throughout the activity or intermittently. 3-Partial/Moderate Assistance-helper does LESS THAN HALF the effort. [place] lifts, holds or supports trunk or limbs, but provides less than half the effort. 2-Substantial/Maximal Assistance-helper does MORE THAN HALF the effort. [place] lifts or holds trunk or limbs and provides more than half the effort. 4-Hdpmbytof-udrwwm does ALL the effort. Patient does none of the effort to complete the activity. Or, the assistance of 2 or more helpers is required for the patient to complete the activity. If activity was not attempted, code reason: 7-Patient Refused. 9-Not Applicable-not attempted and the patient did not perform the activity before the current illness, exacerbation or injury. 10-Not Attempted due to Environmental Limitations-(lack of equipment, weather restraints, etc.). 88-Not Attempted due to Medical Conditions or Safety Concerns. Bed Mobility: 6 Transfers (B,C,W/C): 6 Gait: 6 Indoor Mobility (Ambulation): Independent Stairs: Independent Prior Devices Use: Walker PT Evaluation-Current Subjective Patient in bed pre tx, agrees to PT, has no complaints of pain. Will be co- treating with OT for part of tx due to poor patient mobility, strength, endurance, severe debility, coordinate UE and LE with activity, safety and reduce risk of falls. Pain Section J - Health Conditions 1. Rarely or not at all 2. Occasionally 3. Frequently 4. Almost constantly 8. Unable to answer Pain Effect on Sleep: 2 Pain Interference with Therapy: 2 Pain Interference w/Day-to-Day: 2 Pt/Family Goals to be independent at home Objective Patient Orientation: Person, Place, Situation ROM/Strength ROM Lower Extremities WNL Strength Lower Extremities LLE (hip flexion 3/5, knee flexion 4/5, knee extension 4/5, dorsiflexion 4/5), RLE (hip flexion 3/5, knee flexion 4/5, knee extension 4/5, dorsiflexion 4/5) Sensory Vision: Wears Glasses Hearing: Functional Sensation Right Lower Extremit: Intact Sensation Left Lower Extremity: Intact Transfers Roll Left & Right (QC): 3 Sit to Lying (QC): 3 Lying to Sitting/Side of Bed(Q: 3 Sit to Stand (QC): 3 Chair/Uip-yu-Nypqb Xfer(QC): 4 Toilet Transfer (QC): 4 Car Transfer (QC): 3 Patient performs rolling with min assist, supine<-> sit mod assist, sit <-> stand mod assist, transfers CGA, car transfer mod assist. Patient needs frequent cues for positioning and safety. Gait Walk 10 feet (QC): 88 Walk 50 ft with 2 Turns(QC): 88 Walk 150 ft (QC): 88 Walking 10ft/uneven surface-QC: 88 Distance: 5'x4 Gait Assistive Device: FWW Comments/Gait Description Patient can ambulate 5' with a rolling walker with CGA, no further due to weakness and fatigue Wheelchair Training Wheel 50 ft with 2 turns (QC): 2 Wheel 150 ft (QC): 2 Type of Wheelchair: Manual Patient is too weak to push WC effectively with her arms, even with the use of her legs. Stairs 1 Step (curb) (QC): 88 4 Steps (QC): 88 12 Steps (QC): 88 Balance Sitting Static: Normal Sitting Dynamic: Normal Standing Static: Fair Standing Dynamic: Fair Picking up an Object (QC): 4 (CGA using industrial illuminating engineer) Treatment Patient also performed bathing, dressing, ADL's, standing activity moving rings and working on LE balance and endurance PT worked on bed mobility and transfers, ambulation, WC mobility, positioning and safety during bathing and dressing and ADL's, standing and balance during ring activity, OT performed bathing, dressing, ADL's, ring activity, UE positioning and safety during activity. Assessment/Needs Patient in recliner post tx with nurse call, phone, tray, all needs met. Patient has impaired mobility, strength, endurance. She needs mod assist to stand but just CGA for transfers and ambulation. Rehab Potential: Fair PT Short Term Goals Short Term Goals Time Frame: May 01, 2022 Roll Left & Right: 4 Sit to lyin (Lauren) Lying to sitting on side of be: 3 (Lauren) Sit to stand: 3 (Coleman) Walk 10 feet: 4 (CGA) Walk 50 feet with two turns: 4 (CGA) PT Inter Fold Roll Cutter Goals Inter Fold Roll Cutter Goals PT Inter Fold Roll Cutter Goals Time Frame: May 08, 2022 Roll Left to Right (QC): 4 (SBA) Sit to Lying (QC): 4 (SBA) Lying-Sitting on Side/Bed(QC): 4 (SBA) Sit to Stand (QC): 4 (SBA) Chair/Ugr-cz-Hukfh Xfer(QC): 4 (SBA) Toilet/Commode Transfer (QC): 4 (SBA) Car Transfer (QC): 4 (SBA) Walk 10 feet (QC): 4 (SBA) Walk 10ft-Uneven Surface(QC): 4 (SBA) Walk 50ft with 2 Turns (QC): 4 (SBA) Walk 150 ft (QC): 4 (SBA) Wheel 50 feet with 2 turns (QC: 9 Wheel 150 feet: 9 1 Step (curb) (QC): 4 (CGA) 4 Steps (QC): 88 12 Steps (QC): 88 Picking up an Object (QC): 4 (SBA using industrial illuminating engineer) PT Plan Problem List Problem List: Activity Tolerance, Functional Strength, Safety, Balance, Gait, Transfer, Bed Mobility, ROM Treatment/Plan Treatment Plan: Continue Plan of Care Treatment Plan: Bed Mobility, Education, Functional Activity Pauline, Functional Strength, Group Therapy, Gait, Safety, Therapeutic Exercise, Transfers Treatment Duration: May 08, 2022 Frequency: At least 5 of 7 days/Wk (IRF) Estimated Hrs Per Day: 1.5 hours per day Patient and/or Family Agrees t: Yes Safety Risks/Education Patient Education: Gait Training, Transfer Techniques, Correct Positioning, W/C Management, Safety Issues Teaching Recipient: Patient Teaching Methods: Demonstration, Discussion Response to Teaching: Reinforcement Needed Discharge Recommendations Plan Patient will perform bed mobility and transfer training, balance and endurance training, functional strengthening, stair training, gait training, and education, to improve functional mobility and independence at home. Therapy Discharge Recommendati: Scheduled Assistance, Home & Family, Post Acute PT Time Time In: 1310 Time Out: 1455 DATE: Apr 24, 2022 Total Billed Treatment Time: 95 Total Billed Treatment 1 visit EVM 20' FA 75' PT eval from [id number], OT eval from [id number], co-treat from [id number] ANDREY MCCLURE PT Apr 24, 2022 14:45
--- NOTE | 2022-04-24 14:53 | Occupational Therapy Eval ---
OT Evaluation-General/PLF Medical Diagnosis Admission Date Apr 24, 2022 at 13:10 Medical Diagnosis: disuse myopathy Onset Date: Apr 22, 2022 Therapy Diagnosis Therapy Diagnosis: decreased ADL Status Height/Weight Height (Feet): 5 Height (Inches): 4.00 Weight (Pounds): 235 Weight (Ounces): 2.0 Precautions Precautions/Isolations: Fall Prevention, Standard Precautions Referral Physician: Emmanuel Referral Reason: Evaluation/Treatment Medical History Pertinent Medical History: Atrial Fib, CAD, HTN Additional Medical History Afib, CAD, DVT, HTN, neuropathy, GERD, arthritis, skin cancer, colon cancer Current History ~5 weeks ago, pt had GI bleed and diagnosed with R colon mass found to be adenocarcinoma. 04/07/22 R colectomy with reanastomosis. 04/22 decline in status with multiple falls and inability to walk, ED via EMS from home. Social History Home: Single Level Current Living Status: Spouse Entry Into Home: Level Entry handicap accessible home ADL-Prior Level of Function SCALE: Activities may be completed with or without assistive devices. 9-Rtvpccnhgk-jkjfeum completes the activity by him/herself with no assistance from a helper. 5-Set-up or Clean-up Assistance-helper sets up or cleans up; patient completes activity. [place] assists only prior to or following the activity. 4-Supervision or Touching Assistance-helper provides verbal cues and/or touching/steadying and/or contact guard assistance as patient completes activity. Assistance may be provided throughout the activity or intermittently. 3-Partial/Moderate Assistance-helper does LESS THAN HALF the effort. [place] lifts, holds or supports trunk or limbs, but provides less than half the effort. 2-Substantial/Maximal Assistance-helper does MORE THAN HALF the effort. [place] lifts or holds trunk or limbs and provides more than half the effort. 7-Kqmwzzpaw-mikkjb does ALL the effort. Patient does none of the effort to complete the activity. Or, the assistance of 2 or more helpers is required for the patient to complete the activity. If activity was not attempted, code reason: 7-Patient Refused. 9-Not Applicable-not attempted and the patient did not perform the activity before the current illness, exacerbation or injury. 10-Not Attempted due to Environmental Limitations-(lack of equipment, weather restraints, etc.). 88-Not Attempted due to Medical Conditions or Safety Concerns. ADL PLOF Comments Pt initially reports IND with ADLs and functional mobility using FWW, supervision provided only when showering. Upon further discussion with pt and , they indicate pt's provides supervision throughout most ADLs, pt requires some assistance with drying off after showering, and isn't super thorough with washing LEs, pt is unable to don/doff socks, only wears slip on shoes. Pt admits that she isn't always able to get the back of the shoe on all the way and shuffles around. Self Care: Needed Some Help Functional Cognition: Independent DME/Equipment: Bath Chair, Grab Bars, Shower OT Current Status Subjective Pt agreeable to OT evaluation and OT/PT cotreat Mental Status/Objective Patient Orientation: Person, Place, Time, Situation Current Glasses/Contacts: Yes Hearing Aids: No Dentures/Partials: Yes Hand Dominance: Right Upper Extremity ROM WFL, BUE shoulder flexion to approx 140 degrees Upper Extremity Coordination WFL Upper Extremity Sensation WFL Upper Extremity Strength grossly 3/5 ADL-Treatment Eating (QC): 5 Oral Hygiene (QC): 4 (SBA seated at sink) Shower/Bathe Self (QC): 3 (Mod A overall. Assistance with buttocks, drying periarea, washing/drying LEs lower legs/feet.) Upper Body Dressing (QC): 3 (Min A) Lower Body Dressing (QC): 2 (Max A overall) On/Off Footwear (QC): 2 (Max A overall) Toileting Hygiene (QC): 2 (Max A overall) Other Treatments OT evaluation complete. OT/PT cotreat due to skill of 2 clinicians required which a vocational rehabilitation counselor could not perform in order to coordinate UE/LEs, decrease fall risk, and due to pt's limitations in strength, activity tolerance, mobility/transfers, and balance. OT focused on UE placement, cues for sequencing and safety and ADLs, PT focused on LE placement, gross overall movement, balance, and transfer/mobility. Pt performed functional mobility and transfers using FWW and w/c around [facility] common area/therapy gym. Pt taken to bathroom in her room. Pt completed toileting x2, showering, dressing and grooming tasks. Pt taken to parallel bars in therapy gym via w/c. In order to increase standing narayan erance, dynamic standing balance, activity tolerance, and UE reaching. Pt completed ring arc 1 time through BUE, reaching for rings and bringing them across midline. Pt required 3 seated rest breaks during task. Pt taken back to room, transferring to recliner using FWW. Post tx, pt in recliner, call light in reach and all needs met. Mod A supine to/from sit, min A rolling, mod A sit to/from stand, CGA transfers with FWW, CGA 5' with FWW. Pt requires frequent cues for positioning and safety. Education OT Patient Education: Correct positioning, Energy conservation, Modified ADL techniques, Progress toward Goal/Update tx plan, Purpose of tx/functional activities, Rehab process Teaching Recipient: Patient Teaching Methods: Discussion Response to Teaching: Verbalize Understanding BIMS CAM BIMS Expression of Ideas and Wants: Without Difficulty Understanding Verbal Content: Understands Brief Interview/Mental Status: Yes IRF SARWAT BIMS: IRF SARWAT BIMS Response (Comments) Value Repitition of Three Words Three 3 Recalls Socks Yes, No Cue Required 2 Recalls Blue Yes, No Cue Required 2 Recalls Bed Yes, After Cueing 1 Year Correct 3 Month Accurate Within 5 Days 2 Day Correct 1 Total 14 Should Staff Asses. Mental St[address] No CAM Mental Status Change/Baseline: 0 Inattention: 0 Disorganized thinkin Altered level of consciousness: 0 OT Short Term Goals Short Term Goals Time Frame: May 10, 2022 Toileting hygiene: 3 Upper body dressin Lower body dressin Putting on/taking off footwear: 3 OT Retirement Goals Acid Plant Helper Goals Time Frame: May 19, 2022 Acute change in mental status: 0 Inattention: 0 Disorganized thinkin Altered level of consciousness: 0 Eating (QC): 6 Oral Hygiene (QC): 6 Toileting Hygiene (QC): 6 Shower/Bathe Self (QC): 4 Upper Body Dressing (QC): 5 Lower Body Dressing (QC): 4 On/Off Footwear (QC): 4 Additional Goals: 1-Demonstrate ADL Tasks, 2-Verbalize Understanding, 3- ImproveStrength/Pauline 1=Demonstrate adherence to instructed precautions during ADL tasks. 2=Patient will verbalize/demonstrate understanding of assistive devices/modifications for ADL. 3=Patient will improve strength/tolerance for activity to enable patient to perform ADL's. OT Education/Plan Problem List/Assessment Assessment: Decreased Activ Tolerance, Decreased UE Strength, Impaired Funct Balance, Impaired I ADL's, Impaired Self-Care Skills Discharge Recommendations Plan/Recommendations: Continue POC Treatment Plan/Plan of Care Patient would benefit from OT for education, treatment and training to promote independence in ADL's, mobility, safety and/or upper extremity function for ADL's. Plan of Care: ADL Retraining, Functional Mobility, Group Exercise/Act as Ind, UE Funct Exercise/Act Treatment Duration: May 19, 2022 Frequency: At least 5 of 7 days/Wk (IRF) Estimated Hrs Per Day: 1.5 hours per day Agreement: Yes Rehab Potential: Fair Time Start Time: 13:30 Stop Time: 14:55 DATE: Apr 24, 2022 Total Time Billed (hr/min): 85 Billed Treatment Time [id number] OT evaluaiton (10'), [id number] OT/PT cotreat (75') 1, EVM (10'), ADL 3 (45'), FA 2 (30') KIKO PANG OT Apr 24, 2022 14:53
[2022-04-24] MEDS: CEFEPIME INJECTION 1,000 MG in NS (IVPB) 50 ML IV SCH (17:33)
[2022-04-24] MEDS: SENNA W/DOCUSATE (SENOKOT S) TABLET PO SCH (20:06)
[2022-04-24] MEDS: polyethylene glycoL POWDER 17 GM (MIRALAX) PACK PO SCH (20:06)
[2022-04-24] MEDS: DOCUSATE SODIUM 100 MG (COLACE) CAP PO SCH (20:06)
[2022-04-24] MEDS: SENNOSIDES 8.6 MG (SENOKOT) TAB PO SCH (20:07)
[2022-04-24 20:48] VITALS: BP 133/84
[2022-04-24] MEDS ORDERED: DOCUSATE SODIUM 100 MG (COLACE) CAP PO SCH (21:00)
[2022-04-24] MEDS: APIXABAN 5 MG (ELIQUIS) TABLET PO SCH (21:04)
[2022-04-25] MEDS: CEFEPIME INJECTION 1,000 MG in NS (IVPB) 50 ML IV SCH ×3 (02:41→17:47)
--- NOTE | 2022-04-25 05:10 | Individualized Plan of Care ---
Individualized Plan of Care Rehab Nursing IPOC Order Admission Date Apr 24, 2022 at 13:10 Current Orders Orders Admission Order(Inpt,Obs,Sdc) (04/24/22 13:00) Vital Signs: Per Unit Policy ( 08,16,00 (04/24/22 13:00) Elder Garcia , (04/24/22 13:00) Sequential Compression Device (04/24/22 13:00) Sales Promoter-Inpt Rehab Con (04/24/22 13:00) Rehab Nursing Orders-Ipoc (04/24/22 13:00) Physical Therapy Rehab Orders (04/24/22 13:00) Occupational Therapy Rehab Ord (04/24/22 13:00) Speech Therapy Rehab Orders (04/24/22 13:00) Cbc With Automated Diff (04/25/22 06:00) Comprehensive Metabolic Panel (04/25/22 06:00) Precautions (Aru) (04/24/22 13:00) Weekly Weight WEEK (04/24/22 13:00) Rehab-Intensity Of Therapy (04/24/22 13:00) Initiate Admission Nursing Pro .admission (04/24/22 13:00) Alprazolam Tablet (Xanax Tablet) (04/24/22 13:00) Calcium Carbonate Chew Tablet (Antacid C (04/24/22 13:00) Diphenhydramine Tablet (Benadryl Tablet) (04/24/22 13:00) Docusate Sodium Capsule (Colace Capsule) (04/24/22 21:00) Docusate Sodium Capsule (Colace Capsule) (04/24/22 13:00) Bisacodyl Suppository (Dulcolax Supposit (04/24/22 13:00) Lactulose Oral Solution (Enulose Oral So (04/24/22 13:00) Na Phos/Na Biphos Enema (Fleet Enema Jose (04/24/22 13:00) Guaifenesin/Codeine Syrup (Robitussin Ac (04/24/22 13:00) Loperamide Tablet (Imodium Tablet) (04/24/22 13:00) Melatonin Tablet (Melatonin Tablet) (04/24/22 13:00) Polyethylene Glycol Powder Pkt (Miralax (04/24/22 21:00) Ondansetron Oral Dissolve Tab (Zofran (04/24/22 13:00) Senna S Tablet (Senokot S Tablet) (04/24/22 21:00) Acetaminophen Tablet/Caplet (Tylenol T (04/24/22 13:00) Initiate Admission Nursing Pro .admission (04/24/22 13:00) Admission Arrival Bed Request (04/24/22 13:22) Catheter(Urinary) Discontinue (04/24/22 14:30) Incentive Spirometry (Nursing) Q2H (04/24/22 14:30) Elder Garcia 21 (04/24/22 14:30) Vital Signs: Every 4 Hours (Or (04/24/22 14:30) General/Regular (04/24/22 Lunch) Albuterol Pre-Mix Nebs (Rt) (Proventil (04/24/22 14:30) Allopurinol Tablet (Zyloprim Tablet) (04/25/22 09:00) Apixaban Tablet (Eliquis Tablet) (04/24/22 21:00) Diphenhydramine Injection (Benadryl Inje (04/24/22 14:30) Diphenhydramine Tablet (Benadryl Tablet) (04/24/22 14:30) Cefepime Injection (Maxipime Injection) (04/24/22 18:00) Docusate Sodium Capsule (Colace Capsule) (04/24/22 21:00) Cyanocobalamin Tablet (Vitamin B-12 Tabl (04/25/22 07:00) Bisacodyl Suppository (Dulcolax Supposit (04/24/22 14:30) Lactulose Oral Solution (Enulose Oral So (04/24/22 14:30) Hydrocodone/Apap 5/325 Tablet (Lortab 5 (04/24/22 14:30) Levothyroxine Tablet (Synthroid Tablet) (04/25/22 06:00) Melatonin Tablet (Melatonin Tablet) (04/24/22 14:30) Magnesium Hydroxide Oral Susp (Mom Oral (04/24/22 14:30) Polyethylene Glycol Powder Pkt (Miralax (04/24/22 14:30) Morphine Injection (Morphine Injection (04/24/22 14:30) Antacid Suspension (Mylanta Suspension (04/24/22 14:30) Pantoprazole Tablet (Protonix Tablet) (04/25/22 07:00) Potassium Chloride (Tablet) (K Dur Table (04/25/22 07:00) Sennosides Tablet (Senokot Tablet) (04/24/22 21:00) Calcium Carbonate Chew Tablet (Antacid C (04/24/22 14:30) Acetaminophen Tablet/Caplet (Tylenol T (04/24/22 14:30) Ondansetron Injection (Zofran Injectio (04/24/22 14:30) Ondansetron Oral Dissolve Tab (Zofran (04/24/22 14:30) Diltiazem Cd 24 Hr Capsule (Cardizem Cd (04/25/22 09:00) Oxycodone Immediate Rel Tablet (Oxyir Ta (04/24/22 14:30) Consult Cardiology (04/24/22 14:30) Mat Initiate Protocol (04/24/22 14:30) Svn Small Volume Nebulizer (04/24/22 14:30) Svn Small Volume Nebulizer (04/24/22 14:30) Patient Visit (04/24/22 ) Pt Eval Moderate Complexity (04/24/22 ) Functional Activities, Ea 15 (04/24/22 ) Midline Cap Change Q7D (05/01/22 16:00) Midline Dressing Change Q7D (05/01/22 16:00) Patient Visit (04/25/22 ) Speech Sound Lang Comp (04/25/22 ) Patient Visit (04/25/22 ) Gait Training, Ea 15 Min (04/25/22 ) Exercise Therap, Ea 15 Min (04/25/22 ) Functional Activities, Ea 15 (04/25/22 ) Wheelchair Mgmt/Propulsn 15min (04/25/22 ) Rehab Nursing Orders: Ongoing Assess. of Cognitive Status, Ongoing Assess. of Function Status, Bladder Management, Bladder Scan, Bladder Training, Bowel Management, Bowel Training, Disease Management & Educaiton, DVT Prophylaxis, Fall Prevention, Fluid/Electrolyte/Nutrition Mgmt, Infection Prevention, Medication Management & Education, Management of Risks & Complications, Management of Skin Intergrity, Nutrition Management, Pain Management, Patient/Family Support, Safety Management, Wound Management Intensity of Therapy to be met Patient to be seen: Min.3h per day/5 of 7d PT IPOC Problem List: Activity Tolerance, Functional Strength, Safety, Balance, Gait, Transfer, Bed Mobility, ROM Treatment Plan: Continue Plan of Care Bed Mobility, Education, Functional Activity Pauline, Functional Strength, Group Therapy, Gait, Safety, Therapeutic Exercise, Transfers Treatment Duration: May 08, 2022 Frequency: At least 5 of 7 days/Wk (IRF) Estimated Hrs Per Day: 1.5 hours per day OT IPOC Problems: Decreased Activ Tolerance, Decreased UE Strength, Impaired Funct Balance, Impaired I ADL's, Impaired Self-Care Skills OT Treatment, Training and Edu: Yes Plan of Care: ADL Retraining, Functional Mobility, Group Exercise/Act as Ind, UE Funct Exercise/Act Treatment Duration: May 19, 2022 Frequency: At least 5 of 7 days/Wk (IRF) Estimated Hrs Per Day: 1.[address] IPOC Speech Therapy Treatment Plan: Continue Plan of Care Treatment Duration: Apr 25, 2022 Frequency: Modified Program (IRF) Estimated Hrs Per Day: Other Sales Promoter/Case Mgmt Sales Promoter/Case Managemen: Discharge Planning Dietitian/Supervisor Plastic Sheets Dietitian/Supervisor Plastic Sheets to monitor nutritional status and make changes and/or recommendations as needed and work with speech pathology on dietary upgrades as the occur. Physician IPOC Medical Issues being managed closely and that require the 24 hour availability of a physician: Complicated hospital courses with GI bleeding and colon cancer diagnosis with colon resection and severe iron deficiency anemia requiring transfusions and iron infusions now Pseudomonas UTI with metabolic encephalopathy and myopathy will require close monitoring from physician standpoint Medical Issues: Bowel/Bladder Function, DVT Prophylaxis, Falls Precautions, Fluid/Electrolyte/Nutrition Balance, Infection Protection, Pain Management, Wound Care Brief Synthesis of Preadmission Screen, Post-Admission Evaluation, and Therapy Evaluations: PT and OT will focus on regaining function with use of assistive devices in order to gain stamina and increase muscle strength from myopathy while monitoring for any decompensation from recent GI bleeding Medical Prognosis: Good Anticipated Length of Stay: 7 days VIOLA SPEARS DO Apr 25, 2022 05:10
--- NOTE | 2022-04-25 05:10 | PM&R Progress Note ---
Subjective HPI/CC On Admission Date Seen by Provider: Apr 25, 2022 Time Seen by Provider: 09:00 Subjective/Events-last exam 04/25/2022: Patient doing really well Very weak Labs stable Bowels moving Overall doing everything she needs to do to get better Review of Systems General: Fatigue, Malaise Objective Exam Vital Signs Vital Signs Date Time Temp Pulse Resp B/P (MAP) Pulse Ox O2 Delivery O2 Flow Rate FiO2 04/25/22 20:30 Room Air 04/25/22 20:28 35.8 80 20 127/76 (93) 96 Capillary Refill : General Appearance: No Apparent Distress, WD/WN, Chronically ill, Obese, Other (Weak and fragile) HEENT: PERRL/EOMI, Normal ENT Inspection, Pharynx Normal Neck: Full Range of Motion, Normal Inspection, Non Tender, Supple, Carotid Bruit Respiratory: Chest Non Tender, Lungs Clear, Normal Breath Sounds, No Accessory Muscle Use, No Respiratory Distress Cardiovascular: No Edema, No Gallop, No JVD, No Murmur, Normal Peripheral Pulses, Irregularly Irregular Gastrointestinal: Normal Bowel Sounds, No Organomegaly, No Pulsatile Mass, Non Tender, Soft Back: Normal Inspection, No CVA Tenderness, No Vertebral Tenderness Extremity: Normal Capillary Refill, Normal Inspection, Normal Range of Motion, Non Tender, No Calf Tenderness, No Pedal Edema Neurologic/Psychiatric: Alert, Oriented x3, No Motor/Sensory Deficits, leather flesher II- XII Norm as Tested, Abnormal Gait, Depressed Affect, Motor Weakness (Generalized 4/5) Skin: Normal Color, Warm/Dry Lymphatic: No Adenopathy Results/Procedures Lab Laboratory Tests 04/25/22 06:10 Patient resulted labs reviewed. FIM Transfers Therapy Code Descriptions/Definitions Functional [place] Measure: 0=Not Assessed/NA 4=Minimal Assistance 1=Total Assistance 5=Supervision or Setup 2=Maximal Assistance 6=Modified [place] 3=Moderate Assistance 7=Complete IndependenceSCALE: Activities may be completed with or without assistive devices. 6-Rbobvgodtv-xoaypbb completes the activity by him/herself with no assistance from a helper. 5-Set-up or Clean-up Assistance-helper sets up or cleans up; patient completes activity. [place] assists only prior to or following the activity. 4-Supervision or Touching Assistance-helper provides verbal cues and/or touc tank/steadying and/or contact guard assistance as patient completes activity. Assistance may be provided throughout the activity or intermittently. 3-Partial/Moderate Assistance-helper does LESS THAN HALF the effort. [place] lifts, holds or supports trunk or limbs, but provides less than half the effort. 2-Substantial/Maximal Assistance-helper does MORE THAN HALF the effort. [place] lifts or holds trunk or limbs and provides more than half the effort. 1-Hnlmtqdwo-mawpnt does ALL the effort. Patient does none of the effort to complete the activity. Or, the assistance of 2 or more helpers is required for the patient to complete the activity. If activity was not attempted, code reason: 7-Patient Refused. 9-Not Applicable-not attempted and the patient did not perform the activity be fore the current illness, exacerbation or injury. 10-Not Attempted due to Environmental Limitations-(lack of equipment, weather restraints, etc.). 88-Not Attempted due to Medical Conditions or Safety Concerns. Roll Left to Right (QC): 3 Sit to Lying (QC): 3 Sit to Stand (QC): 3 Chair/Yii-ow-Ureev Xfer(QC): 4 Car Transfer (QC): 3 Gait Training Walk 10 feet (QC): 88 Walk 50 ft with 2 Turns(QC): 88 Walk 150 ft (QC): 88 Walking 10ft/uneven surface-QC: 88 Gait Assistive Device: FWW Wheelchair Training Wheel 50 ft with 2 turns (QC): 2 Wheel 150 ft (QC): 2 Type of Wheelchair: Manual Stair Training 1 Step (curb) (QC): 88 4 Steps (QC): 88 12 Steps (QC): 88 Balance Picking up an Object (QC): 4 (CGA using boilermaker) ADL-Treatment Eating (QC): 5 Oral Hygiene (QC): 4 (SBA seated at sink) Shower/Bathe Self (QC): 3 (Mod A overall. Assistance with buttocks, drying periarea, washing/drying LEs lower legs/feet.) Upper Body Dressing (QC): 3 (Min A) Lower Body Dressing (QC): 2 (Max A overall) On/Off Footwear (QC): 2 (Max A overall) Toileting Hygiene (QC): 2 (Max A overall) Assessment/Plan Assessment and Plan Assess & Plan/Chief Complaint Assessment: Disuse myopathy Acute UTI Pseudomonas maintain on cefepime Dehydration improved Hep-Lock IV fluid Hyponatremia resolved 04/07/22 Status post uncomplicated right colectomy by Dr. Blake due to colon mass adenocarcinoma Anemia severe and symptomatic requiring iron infusions in the pasthemoglobin stable today Recent GI bleed 5 weeks ago requiring transfusions Fatigue Afib chronic Diastolic HF Hypothyroidism HTN HLD Hx DVT right leg recently received Lovenox bridge prior to surgery then returned to OAC Chronic back pain Neuropathy Gout Plan: IV abx cefepime to maintain Hep-Lock IV fluid Monitor hemoglobin and transfuse as needed OAC Supportive care Pain control Incentive spirometer Ambulate DC catheter Inpatient rehab 04/25/2022: Maintain antibiotics Supportive care (1) Pseudomonas urinary tract infection (2) Myopathy (3) Dehydration (4) Weakness Status: Acute (5) Symptomatic anemia Status: Acute (6) Anticoagulant long-term use Status: Chronic (7) Hypertension Status: Chronic (8) DVT (deep venous thrombosis) Status: Acute (9) Spinal stenosis Status: Chronic (10) Hypothyroidism Status: Chronic (11) Gout Status: Chronic VIOLA SPEARS DO Apr 25, 2022 05:10
[2022-04-25 06:22] LABS: BASOPHILS % (AUTO) 1 % (0-10); EOSINOPHILS # (AUTO) 0.1 10^3/uL (0.0-0.3); EOSINOPHILS % (AUTO) 3 % (0-10); HEMATOCRIT 31 % (35-52); HEMOGLOBIN 9.7 g/dL (11.5-16.0); LYMPHOCYTES # (AUTO) 1.6 10^3/uL (1.0-4.0); LYMPHOCYTES % (AUTO) 37 % (12-44); MEAN CORPUSCULAR HEMOGLOBIN 28 pg (25-34); MEAN CORPUSCULAR HGB CONC 31 g/dL (32-36); MEAN CORPUSCULAR VOLUME 92 fL (80-99); MONOCYTES # (AUTO) 0.5 10^3/uL (0.0-1.0); MONOCYTES % (AUTO) 13 % (0-12); NEUTROPHILS # (AUTO) 1.9 10^3/uL (1.8-7.8); NEUTROPHILS % (AUTO) 46 % (42-75); PLATELET COUNT 307 10^3/uL (130-400); WHITE BLOOD COUNT 4.2 10^3/uL (4.3-11.0)
[2022-04-25] MEDS: LEVOTHYROXINE 75 MCG (LEVOTHROID) TABLET PO SCH (06:30)
[2022-04-25] MEDS: CYANOCOBALAMIN 1,000 MCG (VITAMIN B-12) TABLET PO SCH (06:30)
[2022-04-25] MEDS: KCL 20 MEQ TAB (K-DUR) PO SCH (06:30)
[2022-04-25] MEDS: PANTOPRAZOLE 40 MG (PROTONIX) TAB PO SCH (06:30)
[2022-04-25 06:42] LABS: ALBUMIN 2.9 GM/DL (3.2-4.5); BILIRUBIN,TOTAL 0.3 MG/DL (0.1-1.0); CALCIUM 8.4 MG/DL (8.5-10.1); CREATININE SERUM 0.78 MG/DL (0.60-1.30); TOTAL PROTEIN 5.8 GM/DL (6.4-8.2)
[2022-04-25 08:00] VITALS: BP 122/71
[2022-04-25] MEDS: SENNA W/DOCUSATE (SENOKOT S) TABLET PO SCH ×2 (08:01→20:33)
[2022-04-25] MEDS: DOCUSATE SODIUM 100 MG (COLACE) CAP PO SCH ×2 (08:01→20:33)
[2022-04-25] MEDS: SENNOSIDES 8.6 MG (SENOKOT) TAB PO SCH ×2 (08:01→19:51)
[2022-04-25] MEDS: polyethylene glycoL POWDER 17 GM (MIRALAX) PACK PO SCH ×2 (08:01→19:51)
[2022-04-25] MEDS: ALLOPURINOL 100 MG (ZYLOPRIM) TAB PO SCH (08:12)
[2022-04-25] MEDS: dilTIAZem120 MG (CARDIZEM CD) CAP PO SCH (08:12)
[2022-04-25] MEDS: APIXABAN 5 MG (ELIQUIS) TABLET PO SCH ×2 (08:12→20:33)
--- NOTE | 2022-04-25 09:28 | Occupational Ther Daily Note ---
OT Current Status-Daily Note Subjective Pt up in recliner, present. Pt agreeable to OT Tx. ADL-Treatment Therapy Code Descriptions/Definitions Functional [place] Measure: 0=Not Assessed/NA 4=Minimal Assistance 1=Total Assistance 5=Supervision or Setup 2=Maximal Assistance 6=Modified [place] 3=Moderate Assistance 7=Complete IndependenceSCALE: Activities may be completed with or without assistive devices. 7-Qpagcydkkl-lewrtls completes the activity by him/herself with no assistance from a helper. 5-Set-up or Clean-up Assistance-helper sets up or cleans up; patient completes activity. [place] assists only prior to or following the activity. 4-Supervision or Touching Assistance-helper provides verbal cues and/or touching/steadying and/or contact guard assistance as patient completes activity. Assistance may be provided throughout the activity or intermittently. 3-Partial/Moderate Assistance-helper does LESS THAN HALF the effort. [place] lifts, holds or supports trunk or limbs, but provides less than half the effort. 2-Substantial/Maximal Assistance-helper does MORE THAN HALF the effort. [place] lifts or holds trunk or limbs and provides more than half the effort. 9-Sjafrisfx-yxvgjy does ALL the effort. Patient does none of the effort to complete the activity. Or, the assistance of 2 or more helpers is required for the patient to complete the activity. If activity was not attempted, code reason: 7-Patient Refused. 9-Not Applicable-not attempted and the patient did not perform the activity before the current illness, exacerbation or injury. 10-Not Attempted due to Environmental Limitations-(lack of equipment, weather restraints, etc.). 88-Not Attempted due to Medical Conditions or Safety Concerns. Lower Body Dressing (QC): 3 (Min A) On/Off Footwear: 3 (Min A ) Other Treatment [id number] OT tx: Pt in recliner, donned LE clothing and footwear, min A. Min A sit to stand from recliner, CGA transfer to w/c. Pt taken to therapy gym via w/c. OT tx focused on increasing BUE Strength and activity tolerance. Pt completed arm bike, x10 mins, 15 Watt resistance, pt required frequent rest breaks every 1-2 mins. Pt c/o dizziness, BP 105/62 seated. Pt able to describe her typical day, requiring questions/cues for further explanation. Pt describes a pretty sedentary lifestyle, getting up to the bathroom in the morning, eating breakfast, reading the paper, taking a nap, eating lunch, taking a nap or working on crossword puzzles, eating dinner, watch [employer] and the news, then going to bed. She states she doesn't get out of the house much, o ccasionally going to the back porch to watch wildlife. [id number] OT/PT cotreat due to skill of 2 clinicians required which a vocational rehabilitation teacher could not perform in order to coordinate UE/LEs, decrease fall risk, and due to pt's limitations in strength, activity tolerance, mobility/transfers, standing tolerance, standing balance. OT focused on UE placement, cues for sequencing and safety, and reaching tasks in standing. PT focused on LE placement, transfers/mobility, gross overall movement, and standing balance. Pt stood in parallel bars, ~2 mins, BP 112/67 in stand. Pt then completed functional mobility with FWW, CGA 40' and 25' with rest break between. Pt's sit to stand transfers ranged min-mod A depending on fatigue level and height of surface transferring from. Pt required frequent VCs and hand over hand assistance with hand placement during transfers. Post tx, pt in w/c with PT, all needs met. Education OT Patient Education: Correct positioning, Energy conservation, Modified ADL techniques, Progress toward Goal/Update tx plan, Purpose of tx/functional activities, Rehab process Teaching Recipient: Patient Teaching Methods: Discussion Response to Teaching: Verbalize Understanding OT Short Term Goals Short Term Goals Time Frame: May 10, 2022 Toileting hygiene: 3 Upper body dressin Lower body dressin Putting on/taking off footwear: 3 OT Diamond Broker Goals Diamond Broker Goals Time Frame: May 19, 2022 Acute change in mental status: 0 Inattention: 0 Disorganized thinkin Altered level of consciousness: 0 Eating (QC): 6 Oral Hygiene (QC): 6 Toileting Hygiene (QC): 6 Shower/Bathe Self (QC): 4 Upper Body Dressing (QC): 5 Lower Body Dressing (QC): 4 On/Off Footwear (QC): 4 Additional Goals: 1-Demonstrate ADL Tasks, 2-Verbalize Understanding, 3- ImproveStrength/Pauline 1=Demonstrate adherence to instructed precautions during ADL tasks. 2=Patient will verbalize/demonstrate understanding of assistive devices/modifications for ADL. 3=Patient will improve strength/tolerance for activity to enable patient to perform ADL's. OT Education/Plan Problem List/Assessment Assessment: Decreased Activ Tolerance, Decreased UE Strength, Impaired Funct Balance, Impaired I ADL's, Impaired Self-Care Skills Discharge Recommendations Plan/Recommendations: Continue POC Treatment Plan/Plan of Care Patient would benefit from OT for education, treatment and training to promote independence in ADL's, mobility, safety and/or upper extremity function for ADL's. Plan of Care: ADL Retraining, Functional Mobility, Group Exercise/Act as Ind, UE Funct Exercise/Act Treatment Duration: May 19, 2022 Frequency: At least 5 of 7 days/Wk (IRF) Estimated Hrs Per Day: 1.5 hours per day Agreement: Yes Rehab Potential: Fair Time Start Time: 09:00 Stop Time: 10:15 DATE: Apr 25, 2022 Total Time Billed (hr/min): 75 Billed Treatment Time OT tx x45', Cotreat x30' 1, ADL (20'), EX 2 (25'), FA 2 (30') KIKO PANG OT Apr 25, 2022 09:27
--- NOTE | 2022-04-25 10:19 | ST Cognitive Linguistic Eval ---
Speech Evaluation-General Medical Diagnosis disuse myopathy Onset Date: Apr 22, 2022 Therapy Diagnosis Therapy Diagnosis: Impaired Neurocognitive Skills Precautions Precautions: Fall Precautions/Isolations: Fall Prevention, Standard Precautions Referral Referring Physician: Dr. Benitez Reason for Referral: Evaluation/Treatment Medical History Pertinent Medical History: Atrial Fib, CAD, HTN Current History The patient is an 86 year-old female with a past medical history of a GI bleed, who was diagnosed with a right colon mass which was found to be an adenocarcinoma. The patient underwent a right colectomy with reanastomosis on 04/07/22. On 04/22/22, the patient presented to the ED following multiple falls. Reviewed History: Yes Social History Current Living Status: Spouse Speech PLF-Current Status Prior Level of Function The patient stated she was functioning at her prior level of function, however, also mentioned she may be experiencing some memory deficits. The patient was unable to provide specifics or additional information to the clinician. Subjective The patient was seated upright in her recliner, awake and alert, upon entrance to her room by the clinician. The patient greeted the clinician appropriately and was agreeable to participation in the cognitive linguistic assessment. Language Eval: Auditory Comprehends Simple Yes/No Ques: Functional Indent/Objects Multiple Lees: Functional Follows 1-Step Commands: Functional Follows General Conversations: Functional Language Eval: Verbal Language Completes Spontaneous Greeting: Functional Produces Auto, Serial Info: Functional Word Finding: Mild Requests Basic Needs: Functional States Basic Personal Info: Functional Cognitive Patient Orientation The patient was independently oriented to self, location, month, day of the week, and year. Objective Cognitive Domain Attention: WNL Memory: Mild Problem Solving: Moderate Composite Severity Rating: Mild Objective Formal/Standardized Tests [facility] Mental Status Exam (UMS) Results The patient demonstrated a result of +17/30 correlating to a score of "dementia." Oral Motor/Speech Production The patient does not display dysarthria or apraxia of speech at this time. The patient is 100% intelligible in know and unknown contexts. Impression The patient demonstrated a mild neurocognitive impairment in the areas of memory and problem solving. The patient was unable to identify or report specifics regarding her baseline function, however, did report she did not hold new concerns regarding her current cognitive function. Due to the patient's results, the clinician will initially provided skilled services to reinforce additional therapeutic practices and safety. Speech Short Term Goals Short Term Goals Short Term Goals 1. The patient will display 80% accuracy with memory exercises with mild clinician verbal cueing. Time Frame-STG: Five Days. Speech Director Corporate Goals Half-Way Goals 1. The patient will demonstrate improved cognitive linguistic skills for increased safety in the least restrictive environment. Time Frame: Ten Days. Speech-Plan Treatment Plan Speech Therapy Treatment Plan: Continue Plan of Care Treatment Duration: May 05, 2022 Frequency: Modified Program (IRF) Estimated Hrs Per Day: .5 hour per day Rehab Potential: Fair Safety Risks/Education Teaching Recipient: Patient Teaching Methods: Discussion Response to Teaching: Verbalize Understanding, Reinforcement Needed Education Topics Provided: Results, Recommendations, Plan of Care Time Speech Therapy Time In: 08:15 Speech Therapy Time Out: 08:30 DATE: Apr 25, 2022 Total Billed Time: 15 Billed Treatment Time 1, DANIEL LECHUGA Apr 25, 2022 10:19
--- NOTE | 2022-04-25 11:46 | Physical Therapy Daily Note ---
PT Daily Note-Current Subjective PT sitting in [facility] in Therapy Gym working w/OT upon arrival. Pt agrees to PT/OT. Pain Location: No Pain Reported Section J - Health Conditions 1. Rarely or not at all 2. Occasionally 3. Frequently 4. Almost constantly 8. Unable to answer Pain Effect on Sleep: 2 Pain Interference with Therapy: 2 Pain Interference w/Day-to-Day: 2 Mental Status Patient Orientation: Person, Place, Time, Situation Transfers SCALE: Activities may be completed with or without assistive devices. 6-Avueslfgzn-wnmsgdu completes the activity by him/herself with no assistance from a helper. 5-Set-up or Clean-up Assistance-helper sets up or cleans up; patient completes activity. [place] assists only prior to or following the activity. 4-Supervision or Touching Assistance-helper provides verbal cues and/or touching/steadying and/or contact guard assistance as patient completes activity. Assistance may be provided throughout the activity or intermittently. 3-Partial/Moderate Assistance-helper does LESS THAN HALF the effort. [place] lifts, holds or supports trunk or limbs, but provides less than half the effort. 2-Substantial/Maximal Assistance-helper does MORE THAN HALF the effort. [place] lifts or holds trunk or limbs and provides more than half the effort. 3-Tsglqtnnc-rilvui does ALL the effort. Patient does none of the effort to complete the activity. Or, the assistance of 2 or more helpers is required for the patient to complete the activity. If activity was not attempted, code reason: 7-Patient Refused. 9-Not Applicable-not attempted and the patient did not perform the activity before the current illness, exacerbation or injury. 10-Not Attempted due to Environmental Limitations-(lack of equipment, weather restraints, etc.). 88-Not Attempted due to Medical Conditions or Safety Concerns. Sit to Stand (QC): 3 Weight Bearing Full Weight Bearing Full Weight Bearing Gait Training Does the Patient Walk?: Yes Distance: 40', 25' Walk 10 feet (QC): 4 Walk 50 ft with 2 Turns(QC): 4 Gait Persons Needed: 1 Gait Assistive Device: FWW Slow favian, fatigues easily but improving distance Wheelchair Training Does the Pt Use a Wheelchair?: Yes Wheel 50 ft with 2 turns (QC): 5 Wheel 150 ft (QC): 5 Type of Wheelchair: Manual Exercises Supine Ex: Ankle pumps, Quad Set, Glut sets, Heel Slides, Hip abd/add Supine Reps: 10 Seated Therapy Exercises: Ankle pumps, Long arc quads, Hip flexion, Hip abd/add, Glut set Seated Reps: 15 Treatments [id number] OT/PT cotreat due to skill of 2 clinicians required which a director of rehabilitation and wellness could not perform in order to coordinate UE/LEs, decrease fall risk, and due to pt's limitations in strength, activity tolerance, mobility/transfers, standing tolerance, standing balance. OT focused on UE placement, cues for sequencing and safety, and reaching tasks in standing. PT focused on LE placement, transfers/mobility, gross overall movement, and standing balance. Pt stood in parallel bars, ~2 mins, BP 112/67 in stand. Pt then completed functional mobility with FWW, CGA 40' and 25' with rest break between. Pt's sit to stand transfers ranged min-mod A depending on fatigue level and height of surface transferring from. Pt required frequent VCs and hand over hand assistance with hand placement during transfers. OT departs at this time. [id number] Pt takes RB as OT departs. After RB, pt reports unable to walk more at this time. Pt completes Seated Ex. Pt reviews and practices WCH mobility, both advancing and turns. Pt returns to room to rest in recliner with Sp present. CHAIR PAD MAKER presents and reviews written HEP for Supine & Seated EX for both pt & Sp to see. Discussion over any equipment needs for home and possible need for stair amb. if going to see daughter's houses after d/c. All needs met, call light in hand. Assessment Current Status: Good Progress Pt improved with decreased need for assistance in TF and distance in amb. as well as being able to maneuver WCH in hallway. PT Short Term Goals Short Term Goals Time Frame: May 01, 2022 Roll Left & Right: 4 Sit to lyin (Lauren) Lying to sitting on side of be: 3 (Lauren) Sit to stand: 3 (Coleman) Walk 10 feet: 4 (CGA) Walk 50 feet with two turns: 4 (CGA) PT Graduate Teacher Education Goals Graduate Teacher Education Goals PT Graduate Teacher Education Goals Time Frame: May 08, 2022 Roll Left & Right (QC): 4 (SBA) Sit to Lying (QC): 4 (SBA) Lying-Sitting on Side/Bed(QC): 4 (SBA) Sit to Stand (QC): 4 (SBA) Chair/Uzq-ir-Slpru Xfer(QC): 4 (SBA) Toilet Transfer (QC): 4 (SBA) Car Transfer (QC): 4 (SBA) Does the Patient Walk: Yes Walk 10 feet (QC): 4 (SBA) Walk 50ft with 2 Turns (QC): 4 (SBA) Walk 150 ft (QC): 4 (SBA) Walking 10ft on Uneven Surface: 4 (SBA) 1 Step (curb) (QC): 4 (CGA) 4 Steps (QC): 88 12 Steps (QC): 88 Picking up an Object (QC): 4 (SBA using fork assembler) Wheel 50 feet with 2 turns (QC: 9 Wheel 150 feet: 9 PT Plan Problem List Problem List: Activity Tolerance, Transfer Treatment/Plan Treatment Plan: Continue Plan of Care Treatment Plan: Bed Mobility, Education, Functional Activity Pauline, Functional Strength, Group Therapy, Gait, Safety, Therapeutic Exercise, Transfers Treatment Duration: May 08, 2022 Frequency: At least 5 of 7 days/Wk (IRF) Estimated Hrs Per Day: 1.5 hours per day Patient and/or Family Agrees t: Yes Safety Risks/Education Patient Education: Transfer Techniques, Issued Written HEP, Correct Positioning, W/C Management, Safety Issues Teaching Recipient: Patient, Significant Other Teaching Methods: Demonstration, Discussion Response to Teaching: Verbalize Understanding, Return Demonstration Time Time In: 945 Time Out: 1115 DATE: Apr 25, 2022 Total Billed Treatment Time: 90 Total Billed Treatment 1, GT x2 (25m), EX x2 (35m), WCH (20m) & FA (10m) DARIANA GAMEZ CHAIR PAD MAKER Apr 25, 2022 11:46
[2022-04-25 20:28] VITALS: BP 127/76
[2022-04-26] MEDS: CEFEPIME INJECTION 1,000 MG in NS (IVPB) 50 ML IV SCH ×3 (02:22→17:15)
--- NOTE | 2022-04-26 05:28 | PM&R Progress Note ---
Subjective HPI/CC On Admission Date Seen by Provider: Apr 26, 2022 Time Seen by Provider: 11:00 Subjective/Events-last exam 04/26/2022: Patient doing well Strengthening every day No new problems Bowels are moving Slow recovery 04/25/2022: Patient doing really well Very weak Labs stable Bowels moving Overall doing everything she needs to do to get better Review of Systems General: Fatigue, Malaise Objective Exam Vital Signs Vital Signs Date Time Temp Pulse Resp B/P (MAP) Pulse Ox O2 Delivery O2 Flow Rate FiO2 04/26/22 20:40 36.4 70 20 134/82 (99) 97 Room Air Capillary Refill : General Appearance: No Apparent Distress, WD/WN, Chronically ill, Obese, Other (Weak and fragile) HEENT: PERRL/EOMI, Normal ENT Inspection, Pharynx Normal Neck: Full Range of Motion, Normal Inspection, Non Tender, Supple, Carotid Bruit Respiratory: Chest Non Tender, Lungs Clear, Normal Breath Sounds, No Accessory Muscle Use, No Respiratory Distress Cardiovascular: No Edema, No Gallop, No JVD, No Murmur, Normal Peripheral Pulses, Irregularly Irregular Gastrointestinal: Normal Bowel Sounds, No Organomegaly, No Pulsatile Mass, Non Tender, Soft Back: Normal Inspection, No CVA Tenderness, No Vertebral Tenderness Extremity: Normal Capillary Refill, Normal Inspection, Normal Range of Motion, Non Tender, No Calf Tenderness, No Pedal Edema Neurologic/Psychiatric: Alert, Oriented x3, No Motor/Sensory Deficits, extension work instructor II- XII Norm as Tested, Abnormal Gait, Depressed Affect, Motor Weakness (Generalized 4/5) Skin: Normal Color, Warm/Dry Lymphatic: No Adenopathy Results/Procedures Lab Patient resulted labs reviewed. FIM Transfers Therapy Code Descriptions/Definitions Functional [place] Measure: 0=Not Assessed/NA 4=Minimal Assistance 1=Total Assistance 5=Supervision or Setup 2=Maximal Assistance 6=Modified [place] 3=Moderate Assistance 7=Complete IndependenceSCALE: Activities may be completed with or without assistive devices. 2-Hszqstqrzr-lxommro completes the activity by him/herself with no assistance from a helper. 5-Set-up or Clean-up Assistance-helper sets up or cleans up; patient completes activity. [place] assists only prior to or following the activity. 4-Supervision or Touching Assistance-helper provides verbal cues and/or touching/steadying and/or contact guard assistance as patient completes activity. Assistance may be provided throughout the activity or intermittently. 3-Partial/Moderate Assistance-helper does LESS THAN HALF the effort. [place] lifts, holds or supports trunk or limbs, but provides less than half the effort. 2-Substantial/Maximal Assistance-helper does MORE THAN HALF the effort. [place] lifts or holds trunk or limbs and provides more than half the effort. 4-Saotlmvsc-qwttmg does ALL the effort. Patient does none of the effort to complete the activity. Or, the assistance of 2 or more helpers is required for the patient to complete the activity. If activity was not attempted, code reason: 7-Patient Refused. 9-Not Applicable-not attempted and the patient did not perform the activity before the current illness, exacerbation or injury. 10-Not Attempted due to Environmental Limitations-(lack of equipment, weather restraints, etc.). 88-Not Attempted due to Medical Conditions or Safety Concerns. Roll Left to Right (QC): 3 Sit to Lying (QC): 3 Sit to Stand (QC): 3 Chair/Ole-rv-Kubnu Xfer(QC): 4 Car Transfer (QC): 3 Gait Training Does the Patient Walk?: Yes Distance: 40', 25' Walk 10 feet (QC): 4 Walk 50 ft with 2 Turns(QC): 4 Walk 150 ft (QC): 88 Walking 10ft/uneven surface-QC: 88 Gait Persons Needed: 1 Gait Assistive Device: FWW Wheelchair Training Does the Pt Use a Wheelchair?: Yes Wheel 50 ft with 2 turns (QC): 5 Wheel 150 ft (QC): 5 Type of Wheelchair: Manual Stair Training 1 Step (curb) (QC): 88 4 Steps (QC): 88 12 Steps (QC): 88 Balance Picking up an Object (QC): 4 (CGA using epoxy coatings installer) ADL-Treatment Eating (QC): 5 Oral Hygiene (QC): 4 (SBA seated at sink) Shower/Bathe Self (QC): 3 (Mod A overall. Assistance with buttocks, drying periarea, washing/drying LEs lower legs/feet.) Upper Body Dressing (QC): 3 (Min A) Lower Body Dressing (QC): 3 (Min A) On/Off Footwear (QC): 3 (Min A ) Toileting Hygiene (QC): 2 (Max A overall) Assessment/Plan Assessment and Plan Assess & Plan/Chief Complaint Assessment: Disuse myopathy Acute UTI Pseudomonas maintain on cefepime Dehydration improved Hep-Lock IV fluid Hyponatremia resolved 04/07/22 Status post uncomplicated right colectomy by Dr. Blake due to colon mass adenocarcinoma Anemia severe and symptomatic requiring iron infusions in the pasthemoglobin s table today Recent GI bleed 5 weeks ago requiring transfusions Fatigue Afib chronic Diastolic HF Hypothyroidism HTN HLD Hx DVT right leg recently received Lovenox bridge prior to surgery then returned to OAC Chronic back pain Neuropathy Gout Plan: IV abx cefepime to maintain Hep-Lock IV fluid Monitor hemoglobin and transfuse as needed OAC Supportive care Pain control Incentive spirometer Ambulate DC catheter Inpatient rehab 04/25/2022: Maintain antibiotics Supportive care 04/26/2022: Complete antibiotics per protocol (1) Pseudomonas urinary tract infection (2) Myopathy (3) Dehydration (4) Weakness Status: Acute (5) Symptomatic anemia Status: Acute (6) Anticoagulant long-term use Status: Chronic (7) Hypertension Status: Chronic (8) DVT (deep venous thrombosis) Status: Acute (9) Spinal stenosis Status: Chronic (10) Hypothyroidism Status: Chronic (11) Gout Status: Chronic VIOLA SPEARS DO Apr 26, 2022 05:28
[2022-04-26] MEDS: PANTOPRAZOLE 40 MG (PROTONIX) TAB PO SCH (06:27)
[2022-04-26] MEDS: CYANOCOBALAMIN 1,000 MCG (VITAMIN B-12) TABLET PO SCH (06:27)
[2022-04-26] MEDS: KCL 20 MEQ TAB (K-DUR) PO SCH (06:27)
[2022-04-26] MEDS: LEVOTHYROXINE 75 MCG (LEVOTHROID) TABLET PO SCH (06:27)
[2022-04-26] MEDS: ALLOPURINOL 100 MG (ZYLOPRIM) TAB PO SCH (07:27)
[2022-04-26] MEDS: SENNA W/DOCUSATE (SENOKOT S) TABLET PO SCH ×2 (07:27→20:10)
[2022-04-26] MEDS: polyethylene glycoL POWDER 17 GM (MIRALAX) PACK PO SCH ×2 (07:27→20:12)
[2022-04-26] MEDS: DOCUSATE SODIUM 100 MG (COLACE) CAP PO SCH ×2 (07:27→20:11)
[2022-04-26] MEDS: APIXABAN 5 MG (ELIQUIS) TABLET PO SCH ×2 (07:27→20:10)
[2022-04-26] MEDS: SENNOSIDES 8.6 MG (SENOKOT) TAB PO SCH ×2 (07:27→20:12)
[2022-04-26] MEDS: dilTIAZem120 MG (CARDIZEM CD) CAP PO SCH (07:27)
[2022-04-26 08:00] VITALS: BP 136/99
--- NOTE | 2022-04-26 09:24 | Occupational Ther Daily Note ---
OT Current Status-Daily Note Subjective Pt up in recliner, agreeable to OT Tx. ADL-Treatment Therapy Code Descriptions/Definitions Functional [place] Measure: 0=Not Assessed/NA 4=Minimal Assistance 1=Total Assistance 5=Supervision or Setup 2=Maximal Assistance 6=Modified [place] 3=Moderate Assistance 7=Complete IndependenceSCALE: Activities may be completed with or without assistive devices. 3-Oseyfwqgkj-fgicffw completes the activity by him/herself with no assistance from a helper. 5-Set-up or Clean-up Assistance-helper sets up or cleans up; patient completes activity. [place] assists only prior to or following the activity. 4-Supervision or Touching Assistance-helper provides verbal cues and/or touching/steadying and/or contact guard assistance as patient completes activity. Assistance may be provided throughout the activity or intermittently. 3-Partial/Moderate Assistance-helper does LESS THAN HALF the effort. [place] lifts, holds or supports trunk or limbs, but provides less than half the effort. 2-Substantial/Maximal Assistance-helper does MORE THAN HALF the effort. [place] lifts or holds trunk or limbs and provides more than half the effort. 6-Cfuynzfoo-urceuh does ALL the effort. Patient does none of the effort to co mplete the activity. Or, the assistance of 2 or more helpers is required for the patient to complete the activity. If activity was not attempted, code reason: 7-Patient Refused. 9-Not Applicable-not attempted and the patient did not perform the activity before the current illness, exacerbation or injury. 10-Not Attempted due to Environmental Limitations-(lack of equipment, weather restraints, etc.). 88-Not Attempted due to Medical Conditions or Safety Concerns. Other Treatment Pt in recliner, states need to urinate. OT asked pt if she has had the urge to go for a while, pt indicates yes. OT asked pt what she should do if she feels the urge to go to the restroom, pt indicated she was supposed to use call light. OT informed pt to use call light when she needs to go to bathroom, so staff can come in and assist her, she verbalized understanding. Pt stood from elevated recliner, CGA, transferring into bathroom using FWW, CGA. Pt completed toileting, CGA sit to/from stand fro toilet using GBs, pt able to manage clothing and hygiene. Pt transferred to w/c, CGA. Pt taken to therapy gym via w/c. In order to increase BUE Strength and activity tolerance, pt completed arm bike, x10 mins, 15 watt resistance. Pt required frequent rest breaks with task, resting every 1-2 mins. Pt propelled w/c in [facility]U common area, unable to recall steps to initiate movement of w/c requiring hand over hand guidance to find wheels. Pt propelled w/c short distances with cues, very slow pace. VCs and some assistance required with turns. Pt taken the rest of the way back to her room, CGA stand from w/c and CGA transfer to recliner. Post tx, pt in recliner, call light in reach and all needs met. Education OT Patient Education: Correct positioning, Energy conservation, Exercise program, Modified ADL techniques, Progress toward Goal/Update tx plan, Purpose of tx/functional activities, Rehab process Teaching Recipient: Patient Teaching Methods: Discussion Response to Teaching: Verbalize Understanding OT Short Term Goals Short Term Goals Time Frame: May 10, 2022 Toileting hygiene: 3 Upper body dressin Lower body dressin Putting on/taking off footwear: 3 OT On Site Manager Goals Snf Goals Time Frame: May 19, 2022 Acute change in mental status: 0 Inattention: 0 Disorganized thinkin Altered level of consciousness: 0 Eating (QC): 6 Oral Hygiene (QC): 6 Toileting Hygiene (QC): 6 Shower/Bathe Self (QC): 4 Upper Body Dressing (QC): 5 Lower Body Dressing (QC): 4 On/Off Footwear (QC): 4 Additional Goals: 1-Demonstrate ADL Tasks, 2-Verbalize Understanding, 3- ImproveStrength/Pauline 1=Demonstrate adherence to instructed precautions during ADL tasks. 2=Patient will verbalize/demonstrate understanding of assistive devices/modifications for ADL. 3=Patient will improve strength/tolerance for activity to enable patient to perform ADL's. OT Education/Plan Problem List/Assessment Assessment: Decreased Activ Tolerance, Decreased UE Strength, Impaired Funct Balance, Impaired I ADL's, Impaired Self-Care Skills Discharge Recommendations Plan/Recommendations: Continue POC Treatment Plan/Plan of Care Patient would benefit from OT for education, treatment and training to promote independence in ADL's, mobility, safety and/or upper extremity function for ADL's. Plan of Care: ADL Retraining, Functional Mobility, Group Exercise/Act as Ind, UE Funct Exercise/Act Treatment Duration: May 19, 2022 Frequency: At least 5 of 7 days/Wk (IRF) Estimated Hrs Per Day: 1.5 hours per day Agreement: Yes Rehab Potential: Fair Time Start Time: 09:00 Stop Time: 09:45 DATE: Apr 26, 2022 Total Time Billed (hr/min): 45 Billed Treatment Time 1, ADL (20'), EX 2 (25') KIKO PANG OT Apr 26, 2022 09:24
--- NOTE | 2022-04-26 09:30 | Speech Therapy Daily Note ---
Speech Daily Progress Note Subjective Date Seen by Provider: Apr 26, 2022 Time Seen by Provider: 08:30 The patient was seated upright in her recliner, awake and alert, upon entrance to her room by the clinician. The patient reported fatigue but remained participatory with all treatment tasks and discussions. Objective - Orientation: With the use of the in room white board (visual aid), the patient was oriented to self, location, month, day of the week, and year. The patient and clinician discussed the patient's prior level of function (physical and cognitive) prior to admission. The patient remains unclear on her responses, discussing portions of increased independence and cognitive clarity, however, following conversations and responses with "I just don't know, maybe." The patient stated her home is handicap accessible with wide doorways and no stairs. The patient stated her completes cooking, laundry, and cleaning tasks at this time. Per patient, she has a pill box for two weeks of her medication. The patient reported she and her complete the pill box together. Per patient, the patient's completes and is responsible for all finances, including bill payment. The patient no longer drives "but feels I could if I wanted to. I just don't need to, I ride." The patient initially reports "fogginess" surrounding her admission, however, does report she feels the "fogginess" has improved. The patient continues to display decreased response time but is accurate once responses are obtained. At this time, speech pathology will continue skilled treatment to monitor for the patient's return to baseline cognition as well as retention and safety with therapy sequences and tasks. Assessment Assessment Current Status: Fair Progress Treatment Plan Continue Plan of Care Speech Short Term Goals Short Term Goals Short Term Goals 1. The patient will display 80% accuracy with memory exercises with mild clinician verbal cueing. Time Frame-STG: Five Days. Speech Networks Computer Consultant Goals Networks Computer Consultant Goals 1. The patient will demonstrate improved cognitive linguistic skills for increased safety in the least restrictive environment. Time Frame: Ten Days. Speech-Plan Treatment Plan Speech Therapy Treatment Plan: Continue Plan of Care Treatment Duration: Apr 25, 2022 Frequency: Modified Program (IRF) Estimated Hrs Per Day: .5 hour per day Rehab Potential: Fair Safety Risks/Education Teaching Recipient: Patient Teaching Methods: Discussion Response to Teaching: Reinforcement Needed Education Topics Provided: Plan of Care, Recommendations Time Speech Therapy Time In: 08:30 Speech Therapy Time Out: 09:00 DATE: Apr 26, 2022 Total Billed Time: 30 Billed Treatment Time 1, DANIEL ZENDEJAS Apr 26, 2022 09:30
--- NOTE | 2022-04-26 12:03 | Physical Therapy Daily Note ---
PT Daily Note-Current Subjective Pt sitting in recliner visiting w/SP upon arrival. Pt agrees to PT. Pain Location: No Pain Reported Section J - Health Conditions 1. Rarely or not at all 2. Occasionally 3. Frequently 4. Almost constantly 8. Unable to answer Pain Effect on Sleep: 2 Pain Interference with Therapy: 2 Pain Interference w/Day-to-Day: 2 Mental Status Patient Orientation: Person, Place, Situation Attachments: IV Pt starts on IV but IV finishes early in tx and Nurse takes pt off IV pole. Transfers SCALE: Activities may be completed with or without assistive devices. 8-Qewafqrlki-fasrcbl completes the activity by him/herself with no assistance from a helper. 5-Set-up or Clean-up Assistance-helper sets up or cleans up; patient completes activity. [place] assists only prior to or following the activity. 4-Supervision or Touching Assistance-helper provides verbal cues and/or touching/steadying and/or contact guard assistance as patient completes activity. Assistance may be provided throughout the activity or intermittently. 3-Partial/Moderate Assistance-helper does LESS THAN HALF the effort. [place] lifts, holds or supports trunk or limbs, but provides less than half the effort. 2-Substantial/Maximal Assistance-helper does MORE THAN HALF the effort. [place] lifts or holds trunk or limbs and provides more than half the effort. 4-Wbczgavqa-ovhain does ALL the effort. Patient does none of the effort to complete the activity. Or, the assistance of 2 or more helpers is required for the patient to complete the activity. If activity was not attempted, code reason: 7-Patient Refused. 9-Not Applicable-not attempted and the patient did not perform the activity before the current illness, exacerbation or injury. 10-Not Attempted due to Environmental Limitations-(lack of equipment, weather restraints, etc.). 88-Not Attempted due to Medical Conditions or Safety Concerns. Sit to Stand (QC): 5 Toilet Transfer (QC): 5 Weight Bearing Full Weight Bearing Full Weight Bearing Gait Training Does the Patient Walk?: Yes Distance: 125' x2 Walk 10 feet (QC): 5 Walk 50 ft with 2 Turns(QC): 5 Walk 150 ft (QC): 5 Gait Assistive Device: FWW Exercises Seated Therapy Exercises: Ankle pumps, Long arc quads, Hip flexion Seated Reps: 15 NuStep Minutes: 10 NuStep Workload: 2 Treatments TF to standing from recliner and amb. to BR. Pt encouraged to try pericare indep. then CHEMIST STEROIDS assists as pt fatigues. Pt returns to recliner to rest then TF to standing and amb. in hallway. Pt uses NuStep, takes RB then TF to chair for Seated EX. Pt amb. in hallway then returns to room to rest in recliner w/Sp pre sent. All needs met, call light in hand. Assessment Current Status: Fair Progress Pt making gains w/indep. of TF and mobility. Pt needs encouragement to push self. Pt fatigues easily. PT Short Term Goals Short Term Goals Time Frame: May 01, 2022 Roll Left & Right: 4 Sit to lyin (Lauren) Lying to sitting on side of be: 3 (Lauren) Sit to stand: 3 (Coleman) Walk 10 feet: 4 (CGA) Walk 50 feet with two turns: 4 (CGA) PT Toll Mechanic Goals Toll Mechanic Goals PT Fdc Goals Time Frame: May 08, 2022 Roll Left & Right (QC): 4 (SBA) Sit to Lying (QC): 4 (SBA) Lying-Sitting on Side/Bed(QC): 4 (SBA) Sit to Stand (QC): 4 (SBA) Chair/Rzg-va-Aybzc Xfer(QC): 4 (SBA) Toilet Transfer (QC): 4 (SBA) Car Transfer (QC): 4 (SBA) Does the Patient Walk: Yes Walk 10 feet (QC): 4 (SBA) Walk 50ft with 2 Turns (QC): 4 (SBA) Walk 150 ft (QC): 4 (SBA) Walking 10ft on Uneven Surface: 4 (SBA) 1 Step (curb) (QC): 4 (CGA) 4 Steps (QC): 88 12 Steps (QC): 88 Picking up an Object (QC): 4 (SBA using managing broker) Wheel 50 feet with 2 turns (QC: 9 Wheel 150 feet: 9 PT Plan Problem List Problem List: Activity Tolerance, Functional Strength Treatment/Plan Treatment Plan: Continue Plan of Care Treatment Plan: Bed Mobility, Education, Functional Activity Pauline, Functional Strength, Group Therapy, Gait, Safety, Therapeutic Exercise, Transfers Treatment Duration: May 08, 2022 Frequency: At least 5 of 7 days/Wk (IRF) Estimated Hrs Per Day: 1.5 hours per day Patient and/or Family Agrees t: Yes Time Time In: 1030 Time Out: 1145 DATE: Apr 26, 2022 Total Billed Treatment Time: 75 Total Billed Treatment 1, GT x2 (30m), EX x2 (30m) & FA (15m) DARIANA GAMEZ CHEMIST STEROIDS Apr 26, 2022 12:03
--- NOTE | 2022-04-26 13:59 | Occupational Ther Daily Note ---
OT Current Status-Daily Note Subjective Pt up in recliner, agreeable to OT Tx with some encouragement Mental Status/Objective Patient Orientation: Person, Place, Situation ADL-Treatment Therapy Code Descriptions/Definitions Functional [place] Measure: 0=Not Assessed/NA 4=Minimal Assistance 1=Total Assistance 5=Supervision or Setup 2=Maximal Assistance 6=Modified [place] 3=Moderate Assistance 7=Complete IndependenceSCALE: Activities may be completed with or without assistive devices. 9-Uipqrnbnhe-skvkqnw completes the activity by him/herself with no assistance from a helper. 5-Set-up or Clean-up Assistance-helper sets up or cleans up; patient completes activity. [place] assists only prior to or following the activity. 4-Supervision or Touching Assistance-helper provides verbal cues and/or touching/steadying and/or contact guard assistance as patient completes activity. Assistance may be provided throughout the activity or intermittently. 3-Partial/Moderate Assistance-helper does LESS THAN HALF the effort. [place] lifts, holds or supports trunk or limbs, but provides less than half the effort. 2-Substantial/Maximal Assistance-helper does MORE THAN HALF the effort. [place] lifts or holds trunk or limbs and provides more than half the effort. 0-Dwikeuqdg-gdjbkv does ALL the effort. Patient does none of the effort to com plete the activity. Or, the assistance of 2 or more helpers is required for the patient to complete the activity. If activity was not attempted, code reason: 7-Patient Refused. 9-Not Applicable-not attempted and the patient did not perform the activity before the current illness, exacerbation or injury. 10-Not Attempted due to Environmental Limitations-(lack of equipment, weather restraints, etc.). 88-Not Attempted due to Medical Conditions or Safety Concerns. Oral Hygiene (QC): 6 Toileting Hygiene (QC): 4 (SBA) Toilet Transfer (QC): 4 (SBA) Other Treatment Pt in recliner, sit to stand with SBA, then used FWW to transfer to toilet in bathroom. Pt completed toileting, SBA, then transferred to w/c with SBA. Pt sat at sink to complete oral care and grooming tasks independently. Pt then propelle d w/c [facility] common [facility], slow pace. pt required skilled VCs for UE placement with task. Pt taken back to her room, transferring to recliner using FWW, SBA. Post tx, pt in recliner, call light in reach and all needs met. OT Short Term Goals Short Term Goals Time Frame: May 10, 2022 Toileting hygiene: 3 Upper body dressin Lower body dressin Putting on/taking off footwear: 3 OT Fci Goals Electric Furnace Operator Goals Time Frame: May 19, 2022 Acute change in mental status: 0 Inattention: 0 Disorganized thinkin Altered level of consciousness: 0 Eating (QC): 6 Oral Hygiene (QC): 6 Toileting Hygiene (QC): 6 Shower/Bathe Self (QC): 4 Upper Body Dressing (QC): 5 Lower Body Dressing (QC): 4 On/Off Footwear (QC): 4 Additional Goals: 1-Demonstrate ADL Tasks, 2-Verbalize Understanding, 3- ImproveStrength/Pauline 1=Demonstrate adherence to instructed precautions during ADL tasks. 2=Patient will verbalize/demonstrate understanding of assistive devices/modific ations for ADL. 3=Patient will improve strength/tolerance for activity to enable patient to perform ADL's. OT Education/Plan Problem List/Assessment Assessment: Decreased Activ Tolerance, Decreased UE Strength, Impaired Funct Balance, Impaired I ADL's, Impaired Self-Care Skills Discharge Recommendations Plan/Recommendations: Continue POC Treatment Plan/Plan of Care Patient would benefit from OT for education, treatment and training to promote independence in ADL's, mobility, safety and/or upper extremity function for ADL's. Plan of Care: ADL Retraining, Functional Mobility, Group Exercise/Act as Ind, UE Funct Exercise/Act Treatment Duration: May 19, 2022 Frequency: At least 5 of 7 days/Wk (IRF) Estimated Hrs Per Day: 1.5 hours per day Agreement: Yes Rehab Potential: Fair Time Start Time: 13:20 Stop Time: 13:50 DATE: Apr 26, 2022 Total Time Billed (hr/min): 30 Billed Treatment Time 1, ADL (15'), FA (15') KIKO PANG OT Apr 26, 2022 13:59
[2022-04-26 20:40] VITALS: BP 134/82
[2022-04-27] MEDS: CEFEPIME INJECTION 1,000 MG in NS (IVPB) 50 ML IV SCH ×3 (01:40→18:06)
[2022-04-27] MEDS: LEVOTHYROXINE 75 MCG (LEVOTHROID) TABLET PO SCH (05:33)
[2022-04-27] MEDS: CYANOCOBALAMIN 1,000 MCG (VITAMIN B-12) TABLET PO SCH (06:48)
[2022-04-27] MEDS: KCL 20 MEQ TAB (K-DUR) PO SCH (06:48)
[2022-04-27] MEDS: PANTOPRAZOLE 40 MG (PROTONIX) TAB PO SCH (06:48)
[2022-04-27 07:45] VITALS: BP 135/90
[2022-04-27] MEDS: dilTIAZem120 MG (CARDIZEM CD) CAP PO SCH (08:17)
[2022-04-27] MEDS: DOCUSATE SODIUM 100 MG (COLACE) CAP PO SCH ×2 (08:17→20:17)
[2022-04-27] MEDS: ALLOPURINOL 100 MG (ZYLOPRIM) TAB PO SCH (08:17)
[2022-04-27] MEDS: APIXABAN 5 MG (ELIQUIS) TABLET PO SCH ×2 (08:17→20:17)
[2022-04-27] MEDS: SENNA W/DOCUSATE (SENOKOT S) TABLET PO SCH ×2 (08:18→20:18)
[2022-04-27] MEDS: SENNOSIDES 8.6 MG (SENOKOT) TAB PO SCH ×2 (08:18→20:18)
[2022-04-27] MEDS: polyethylene glycoL POWDER 17 GM (MIRALAX) PACK PO SCH ×2 (08:18→20:18)
--- NOTE | 2022-04-27 09:58 | Physical Therapy Daily Note ---
PT Daily Note-Current Subjective Pt. agrees to Rx. Explains her daily routine at home. States she feels she has made progress here so far. Pain Location: No Pain Reported Section J - Health Conditions 1. Rarely or not at all 2. Occasionally 3. Frequently 4. Almost constantly 8. Unable to answer Pain Effect on Sleep: 1 Pain Interference with Therapy: 1 Pain Interference w/Day-to-Day: 1 Mental Status Patient Orientation: Normal For Age Transfers SCALE: Activities may be completed with or without assistive devices. 9-Wjkmvhcpxf-xvzgspl completes the activity by him/herself with no assistance from a helper. 5-Set-up or Clean-up Assistance-helper sets up or cleans up; patient completes activity. [place] assists only prior to or following the activity. 4-Supervision or Touching Assistance-helper provides verbal cues and/or touching/steadying and/or contact guard assistance as patient completes activity. Assistance may be provided throughout the activity or intermittently. 3-Partial/Moderate Assistance-helper does LESS THAN HALF the effort. [place] lifts, holds or supports trunk or limbs, but provides less than half the effort. 2-Substantial/Maximal Assistance-helper does MORE THAN HALF the effort. [place] lifts or holds trunk or limbs and provides more than half the effort. 8-Ewrpqljgl-mageqg does ALL the effort. Patient does none of the effort to complete the activity. Or, the assistance of 2 or more helpers is required for the patient to complete the activity. If activity was not attempted, code reason: 7-Patient Refused. 9-Not Applicable-not attempted and the patient did not perform the activity before the current illness, exacerbation or injury. 10-Not Attempted due to Environmental Limitations-(lack of equipment, weather restraints, etc.). 88-Not Attempted due to Medical Conditions or Safety Concerns. Roll Left & Right (QC): 6 Sit to Lying (QC): 6 Lying to Sitting/Side of Bed(Q: 5 (held FWW stabel for use as rail) Sit to Stand (QC): 6 Chair/Lbe-kj-Mjack Xfer(QC): 6 Car Transfer (QC): 4 Weight Bearing Full Weight Bearing Full Weight Bearing Gait Training Does the Patient Walk?: Yes Walk 10 feet (QC): 6 Walk 50 ft with 2 Turns(QC): 4 Walk 150 ft (QC): 4 Gait Persons Needed: 1 Gait Assistive Device: FWW fatigues with activity, required CGA when fatigued. 75 ft x 4, 155ft x1 Exercises Supine Ex: Bridging, Ankle pumps, Rolling, Heel Slides, Scooting, Straight leg raise, Hip abd/add Supine Reps: 10 Seated Therapy Exercises: Ankle pumps, Sit to stand, Long arc quads, Hip flexion, Hip abd/add Seated Reps: 15 NuStep Minutes: 10 NuStep Workload: 1 Treatments TRFs, seated and supine LE ex, gait, leg presses on Nustep Assessment Current Status: Good Progress needed rest breaks on Nustep and sat to rest occas during gait but gave good effort PT Short Term Goals Short Term Goals Time Frame: May 01, 2022 Roll Left & Right: 4 Sit to lyin (Lauren) Lying to sitting on side of be: 3 (Lauren) Sit to stand: 3 (Coleman) Walk 10 feet: 4 (CGA) Walk 50 feet with two turns: 4 (CGA) PT Intermediate Goals Commodity Lead Goals PT Intermediate Goals Time Frame: May 08, 2022 Roll Left & Right (QC): 4 (SBA) Sit to Lying (QC): 4 (SBA) Lying-Sitting on Side/Bed(QC): 4 (SBA) Sit to Stand (QC): 4 (SBA) Chair/Som-sj-Molyl Xfer(QC): 4 (SBA) Toilet Transfer (QC): 4 (SBA) Car Transfer (QC): 4 (SBA) Does the Patient Walk: Yes Walk 10 feet (QC): 4 (SBA) Walk 50ft with 2 Turns (QC): 4 (SBA) Walk 150 ft (QC): 4 (SBA) Walking 10ft on Uneven Surface: 4 (SBA) 1 Step (curb) (QC): 4 (CGA) 4 Steps (QC): 88 12 Steps (QC): 88 Picking up an Object (QC): 4 (SBA using deputy sheriff bailiff) Wheel 50 feet with 2 turns (QC: 9 Wheel 150 feet: 9 PT Plan Treatment/Plan Treatment Plan: Continue Plan of Care Treatment Plan: Bed Mobility, Education, Functional Activity Pauline, Functional Strength, Group Therapy, Gait, Safety, Therapeutic Exercise, Transfers Treatment Duration: May 08, 2022 Frequency: At least 5 of 7 days/Wk (IRF) Estimated Hrs Per Day: 1.5 hours per day Patient and/or Family Agrees t: Yes Safety Risks/Education Patient Education: Gait Training, Transfer Techniques, Correct Positioning, Disease Process, Safety Issues Teaching Recipient: Patient Teaching Methods: Demonstration, Discussion Response to Teaching: Verbalize Understanding, Return Demonstration, Reinforcement Needed Time Time In: 900 Time Out: 1000 DATE: Apr 27, 2022 Total Billed Treatment Time: 60 Total Billed Treatment 1,EX30m,FA15m,GT15m REJI WHITE PACKER INSULATION Apr 27, 2022 09:58
--- NOTE | 2022-04-27 10:45 | PM&R Progress Note ---
Subjective HPI/CC On Admission Date Seen by Provider: Apr 27, 2022 Time Seen by Provider: 12:00 Subjective/Events-last exam 04/27/2022: Patient doing a little better Slow recovery Weight loss is noted Participating in therapy 04/26/2022: Patient doing well Strengthening every day No new problems Bowels are moving Slow recovery 04/25/2022: Patient doing really well Very weak Labs stable Bowels moving Overall doing everything she needs to do to get better Review of Systems General: Fatigue, Malaise Objective Exam Vital Signs Vital Signs Date Time Temp Pulse Resp B/P (MAP) Pulse Ox O2 Delivery O2 Flow Rate FiO2 04/27/22 20:10 Room Air 04/27/22 19:37 35.7 69 20 151/85 (107) 97 Capillary Refill : General Appearance: No Apparent Distress, WD/WN, Chronically ill, Obese, Other (Weak and fragile) HEENT: PERRL/EOMI, Normal ENT Inspection, Pharynx Normal Neck: Full Range of Motion, Normal Inspection, Non Tender, Supple, Carotid Bruit Respiratory: Chest Non Tender, Lungs Clear, Normal Breath Sounds, No Accessory Muscle Use, No Respiratory Distress Cardiovascular: No Edema, No Gallop, No JVD, No Murmur, Normal Peripheral Pulses, Irregularly Irregular Gastrointestinal: Normal Bowel Sounds, No Organomegaly, No Pulsatile Mass, Non Tender, Soft Back: Normal Inspection, No CVA Tenderness, No Vertebral Tenderness Extremity: Normal Capillary Refill, Normal Inspection, Normal Range of Motion, Non Tender, No Calf Tenderness, No Pedal Edema Neurologic/Psychiatric: Alert, Oriented x3, No Motor/Sensory Deficits, surgical scrub tech II- XII Norm as Tested, Abnormal Gait, Depressed Affect, Motor Weakness (Generalized 4/5) Skin: Normal Color, Warm/Dry Lymphatic: No Adenopathy Results/Procedures Lab Patient resulted labs reviewed. FIM Transfers Therapy Code Descriptions/Definitions Functional [place] Measure: 0=Not Assessed/NA 4=Minimal Assistance 1=Total Assistance 5=Supervision or Setup 2=Maximal Assistance 6=Modified [place] 3=Moderate Assistance 7=Complete IndependenceSCALE: Activities may be completed with or without assistive devices. 3-[place] completes the activity by him/herself with no assistance from a helper. 5-Set-up or Clean-up Assistance-helper sets up or cleans up; patient completes activity. [place] assists only prior to or following the activity. 4-Supervision or Touching Assistance-helper provides verbal cues and/or touching/steadying and/or contact guard assistance as patient completes activity. Assistance may be provided throughout the activity or intermittently. 3-Partial/Moderate Assistance-helper does LESS THAN HALF the effort. [place] lif ts, holds or supports trunk or limbs, but provides less than half the effort. 2-Substantial/Maximal Assistance-helper does MORE THAN HALF the effort. [place] lifts or holds trunk or limbs and provides more than half the effort. 8-Oryacyanb-mvtvyt does ALL the effort. Patient does none of the effort to complete the activity. Or, the assistance of 2 or more helpers is required for the patient to complete the activity. If activity was not attempted, code reason: 7-Patient Refused. 9-Not Applicable-not attempted and the patient did not perform the activity before the current illness, exacerbation or injury. 10-Not Attempted due to Environmental Limitations-(lack of equipment, weather restraints, etc.). 88-Not Attempted due to Medical Conditions or Safety Concerns. Roll Left to Right (QC): 6 Sit to Lying (QC): 6 Sit to Stand (QC): 6 Chair/Het-hm-Gwkdy Xfer(QC): 6 Car Transfer (QC): 4 Gait Training Does the Patient Walk?: Yes Distance: 125' x2 Walk 10 feet (QC): 6 Walk 50 ft with 2 Turns(QC): 4 Walk 150 ft (QC): 4 Walking 10ft/uneven surface-QC: 88 Gait Persons Needed: 1 Gait Assistive Device: FWW Wheelchair Training Does the Pt Use a Wheelchair?: Yes Wheel 50 ft with 2 turns (QC): 5 Wheel 150 ft (QC): 5 Type of Wheelchair: Manual Stair Training 1 Step (curb) (QC): 88 4 Steps (QC): 88 12 Steps (QC): 88 Balance Picking up an Object (QC): 4 (CGA using food and nutrition services assistant) ADL-Treatment Eating (QC): 5 Oral Hygiene (QC): 6 Shower/Bathe Self (QC): 3 (Mod A overall. 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 Anemia severe and symptomatic requiring iron infusions in the pasthemoglobin stable today Recent GI bleed 5 weeks ago requiring transfusions Fatigue Afib chronic Diastolic HF Hypothyroidism HTN HLD Hx DVT right leg recently received Lovenox bridge prior to surgery then returned to OAC Chronic back pain Neuropathy Gout Plan: IV abx cefepime to maintain Hep-Lock IV fluid Monitor hemoglobin and transfuse as needed OAC Supportive care Pain control Incentive spirometer Ambulate DC catheter Inpatient rehab 04/25/2022: Maintain antibiotics Supportive care 04/26/2022: Complete antibiotics per protocol 04/27/2022: Supportive care Monitor closely (1) Pseudomonas urinary tract infection (2) Myopathy (3) Dehydration (4) Weakness Status: Acute (5) Symptomatic anemia Status: Acute (6) Anticoagulant long-term use Status: Chronic (7) Hypertension Status: Chronic (8) DVT (deep venous thrombosis) Status: Acute (9) Spinal stenosis Status: Chronic (10) Hypothyroidism Status: Chronic (11) Gout Status: Chronic VIOLA SPEARS DO Apr 27, 2022 10:45
--- NOTE | 2022-04-27 11:08 | Occupational Ther Daily Note ---
OT Current Status-Daily Note Subjective Pt up in recliner, agreeable to OT Tx with some encouragement. Pt declines showering today, preferring to wait until tomorrow before the weekend. Mental Status/Objective Attachments: IV ADL-Treatment Therapy Code Descriptions/Definitions Functional [place] Measure: 0=Not Assessed/NA 4=Minimal Assistance 1=Total Assistance 5=Supervision or Setup 2=Maximal Assistance 6=Modified [place] 3=Moderate Assistance 7=Complete IndependenceSCALE: Activities may be completed with or without assistive devices. 8-Yfcdngycds-dsgdpbu completes the activity by him/herself with no assistance from a helper. 5-Set-up or Clean-up Assistance-helper sets up or cleans up; patient completes activity. [place] assists only prior to or following the activity. 4-Supervision or Touching Assistance-helper provides verbal cues and/or touching/steadying and/or contact guard assistance as patient completes activity. Assistance may be provided throughout the activity or intermittently. 3-Partial/Moderate Assistance-helper does LESS THAN HALF the effort. [place] lifts, holds or supports trunk or limbs, but provides less than half the effort. 2-Substantial/Maximal Assistance-helper does MORE THAN HALF the effort. [place] lifts or holds trunk or limbs and provides more than half the effort. 9-Xydkpvwum-ebzofz does ALL the effort. Patient does none of the effort to complete the activity. Or, the assistance of 2 or more helpers is required for the patient to complete the activity. If activity was not attempted, code reason: 7-Patient Refused. 9-Not Applicable-not attempted and the patient did not perform the activity before the current illness, exacerbation or injury. 10-Not Attempted due to Environmental Limitations-(lack of equipment, weather restraints, etc.). 88-Not Attempted due to Medical Conditions or Safety Concerns. Toileting Hygiene (QC): 3 (Min A with clothing management, mod VCs for sequencing) Toilet Transfer (QC): 4 (SBA) Other Treatment Pt in recliner, used FWW to transfer into bathroom and onto toilet, SBA. Pt completed toileting, mod VCs for sequencing and min A with clothing management. Pt used FWW to perform functional mobility to therapy gym, 1 seated rest break. OT tx focused on increasing BUE Strength and activity tolerance. Pt completed arm bike, x15 mins, 15 watt resistance, pt took 4 rest breaks as needed. Pt then completed fine motor strengthening task, removing beads from moderate resistance (green) theraputty. When task was presented to pt, she stated "oh God". OT asked pt what she was thinking, but pt did not respond. OT educated pt on the purpose/benefit of OT and purpose of task. Pt able to locate all beads without cues. Pt used FWW to return to her room, SBA, no rest break. Post tx, pt in recliner, call light in reach and all needs met. Education OT Patient Education: Correct positioning, Energy conservation, Modified ADL techniques, Progress toward Goal/Update tx plan, Purpose of tx/functional activities, Rehab process Teaching Recipient: Patient Teaching Methods: Discussion Response to Teaching: Verbalize Understanding OT Short Term Goals Short Term Goals Time Frame: May 10, 2022 Toileting hygiene: 3 Upper body dressin Lower body dressin Putting on/taking off footwear: 3 OT [facility] Goals Bullion Weigher Goals Time Frame: May 19, 2022 Acute change in mental status: 0 Inattention: 0 Disorganized thinkin Altered level of consciousness: 0 Eating (QC): 6 Oral Hygiene (QC): 6 Toileting Hygiene (QC): 6 Shower/Bathe Self (QC): 4 Upper Body Dressing (QC): 5 Lower Body Dressing (QC): 4 On/Off Footwear (QC): 4 Additional Goals: 1-Demonstrate ADL Tasks, 2-Verbalize Understanding, 3- ImproveStrength/Pauline 1=Demonstrate adherence to instructed precautions during ADL tasks. 2=Patient will verbalize/demonstrate understanding of assistive devices/modifications for ADL. 3=Patient will improve strength/tolerance for activity to enable patient to perform ADL's. OT Education/Plan Problem List/Assessment Assessment: Decreased Activ Tolerance, Decreased UE Strength, Impaired Funct Balance, Impaired I ADL's, Impaired Self-Care Skills Discharge Recommendations Plan/Recommendations: Continue POC Treatment Plan/Plan of Care Patient would benefit from OT for education, treatment and training to promote independence in ADL's, mobility, safety and/or upper extremity function for ADL's. Plan of Care: ADL Retraining, Functional Mobility, Group Exercise/Act as Ind, UE Funct Exercise/Act Treatment Duration: May 19, 2022 Frequency: At least 5 of 7 days/Wk (IRF) Estimated Hrs Per Day: 1.5 hours per day Agreement: Yes Rehab Potential: Fair Time Start Time: 10:30 Stop Time: 11:45 DATE: Apr 27, 2022 Total Time Billed (hr/min): 75 Billed Treatment Time 1, ADL (15'), EX (15'), FA 3 (45') KIKO PANG OT Apr 27, 2022 11:08
--- NOTE | 2022-04-27 11:54 | Physical Therapy Daily Note ---
PT Daily Note-Current Subjective Pt. up in recliner , agrees to seated LE ex. Pain Location: No Pain Reported Section J - Health Conditions 1. Rarely or not at all 2. Occasionally 3. Frequently 4. Almost constantly 8. Unable to answer Pain Effect on Sleep: 1 Pain Interference with Therapy: 1 Pain Interference w/Day-to-Day: 1 Mental Status Patient Orientation: Normal For Age Transfers SCALE: Activities may be completed with or without assistive devices. 5-Flqsfrdzoy-nenudgk completes the activity by him/herself with no assistance from a helper. 5-Set-up or Clean-up Assistance-helper sets up or cleans up; patient completes activity. [place] assists only prior to or following the activity. 4-Supervision or Touching Assistance-helper provides verbal cues and/or touching/steadying and/or contact guard assistance as patient completes activity. Assistance may be provided throughout the activity or intermittently. 3-Partial/Moderate Assistance-helper does LESS THAN HALF the effort. [place] lifts, holds or supports trunk or limbs, but provides less than half the effort. 2-Substantial/Maximal Assistance-helper does MORE THAN HALF the effort. [place] lifts or holds trunk or limbs and provides more than half the effort. 2-Gaoztalhz-iqngho does ALL the effort. Patient does none of the effort to complete the activity. Or, the assistance of 2 or more helpers is required for the patient to complete the activity. If activity was not attempted, code reason: 7-Patient Refused. 9-Not Applicable-not attempted and the patient did not perform the activity be fore the current illness, exacerbation or injury. 10-Not Attempted due to Environmental Limitations-(lack of equipment, weather restraints, etc.). 88-Not Attempted due to Medical Conditions or Safety Concerns. Sit to Stand (QC): 6 Weight Bearing Full Weight Bearing Full Weight Bearing Exercises Seated Therapy Exercises: Ankle pumps, Sit to stand, Long arc quads, Hip flexion, Hip abd/add Seated Reps: 10 (x2) Treatments seated LE therex, in recliner after Rx, call huntley at hand, alarm insitu Assessment Current Status: Good Progress PT Short Term Goals Short Term Goals Time Frame: May 01, 2022 Roll Left & Right: 4 Sit to lyin (Lauren) Lying to sitting on side of be: 3 (Lauren) Sit to stand: 3 (Coleman) Walk 10 feet: 4 (CGA) Walk 50 feet with two turns: 4 (CGA) PT Utility Manager Goals Utility Manager Goals PT Residential Goals Time Frame: May 08, 2022 Roll Left & Right (QC): 4 (SBA) Sit to Lying (QC): 4 (SBA) Lying-Sitting on Side/Bed(QC): 4 (SBA) Sit to Stand (QC): 4 (SBA) Chair/Vqm-nc-Lnvrc Xfer(QC): 4 (SBA) Toilet Transfer (QC): 4 (SBA) Car Transfer (QC): 4 (SBA) Does the Patient Walk: Yes Walk 10 feet (QC): 4 (SBA) Walk 50ft with 2 Turns (QC): 4 (SBA) Walk 150 ft (QC): 4 (SBA) Walking 10ft on Uneven Surface: 4 (SBA) 1 Step (curb) (QC): 4 (CGA) 4 Steps (QC): 88 12 Steps (QC): 88 Picking up an Object (QC): 4 (SBA using rn primary care) Wheel 50 feet with 2 turns (QC: 9 Wheel 150 feet: 9 PT Plan Treatment/Plan Treatment Plan: Continue Plan of Care Treatment Plan: Bed Mobility, Education, Functional Activity Pauline, Functional Strength, Group Therapy, Gait, Safety, Therapeutic Exercise, Transfers Treatment Duration: May 08, 2022 Frequency: At least 5 of 7 days/Wk (IRF) Estimated Hrs Per Day: 1.5 hours per day Patient and/or Family Agrees t: Yes Safety Risks/Education Patient Education: Correct Positioning Time Time In: 1145 Time Out: 1200 DATE: Apr 27, 2022 Total Billed Treatment Time: 15 Total Billed Treatment 1,EX15m REJI WHITE CANCELING MACHINE OPERATOR Apr 27, 2022 11:54
--- NOTE | 2022-04-27 12:51 | Speech Therapy Daily Note ---
Speech Daily Progress Note Subjective Date Seen by Provider: Apr 27, 2022 Time Seen by Provider: 08:30 The patient was seated upright in her recliner, awake and alert, upon entrance to her room by the clinician. The patient greeted the clinician appropriately and was agreeable to participation in the cognitive linguistic treatment session. Objective The patient and clinician discussed safety precautions in the home environment. The patient was provided pictures depicting safety issues in the home. The patient was asked to identify the issues and provide a safe solution. The patient displayed high accuracy with mild clinician verbal cueing. The patient was oriented to month, day of the week, and year with the use of the in room white board (visual aid). Assessment Assessment Current Status: Good Progress Treatment Plan Continue Plan of Care Speech Short Term Goals Short Term Goals Short Term Goals 1. The patient will display 80% accuracy with memory exercises with mild clinician verbal cueing. Time Frame-STG: Five Days. Speech [facility] Goals Program Management Intern Goals 1. The patient will demonstrate improved cognitive linguistic skills for increased safety in the least restrictive environment. Time Frame: Ten Days. Speech-Plan Treatment Plan Speech Therapy Treatment Plan: Continue Plan of Care Treatment Duration: Apr 25, 2022 Frequency: Modified Program (IRF) Estimated Hrs Per Day: .5 hour per day Rehab Potential: Fair Safety Risks/Education Teaching Recipient: Patient Teaching Methods: Discussion Response to Teaching: Reinforcement Needed Education Topics Provided: Safety Precautions Time Speech Therapy Time In: 08:30 Speech Therapy Time Out: 09:00 DATE: Apr 27, 2022 Total Billed Time: 30 Billed Treatment Time 1HALLE DANIEL NAVARRO Apr 27, 2022 12:50
[2022-04-27 19:37] VITALS: BP 151/85
[2022-04-28] MEDS: CEFEPIME INJECTION 1,000 MG in NS (IVPB) 50 ML IV SCH ×3 (01:32→17:29)
--- NOTE | 2022-04-28 05:28 | PM&R Progress Note ---
Subjective HPI/CC On Admission Date Seen by Provider: Apr 28, 2022 Time Seen by Provider: 12:00 Subjective/Events-last exam 04/28/2022: Patient doing well Participating in therapy No pain reported Urine appears cloudy we will recheck urine 04/27/2022: Patient doing a little better Slow recovery Weight loss is noted Participating in therapy 04/26/2022: Patient doing well Strengthening every day No new problems Bowels are moving Slow recovery 04/25/2022: Patient doing really well Very weak Labs stable Bowels moving Overall doing everything she needs to do to get better Review of Systems General: Fatigue, Malaise Objective Exam Vital Signs Vital Signs Date Time Temp Pulse Resp B/P (MAP) Pulse Ox O2 Delivery O2 Flow Rate FiO2 04/28/22 09:00 Room Air 04/28/22 07:06 36.1 87 20 135/85 (102) 96 Capillary Refill : General Appearance: No Apparent Distress, WD/WN, Chronically ill, Obese, Other (Weak and fragile) HEENT: PERRL/EOMI, Normal ENT Inspection, Pharynx Normal Neck: Full Range of Motion, Normal Inspection, Non Tender, Supple, Carotid Bruit Respiratory: Chest Non Tender, Lungs Clear, Normal Breath Sounds, No Accessory Muscle Use, No Respiratory Distress Cardiovascular: No Edema, No Gallop, No JVD, No Murmur, Normal Peripheral Pulses, Irregularly Irregular Gastrointestinal: Normal Bowel Sounds, No Organomegaly, No Pulsatile Mass, Non Tender, Soft Back: Normal Inspection, No CVA Tenderness, No Vertebral Tenderness Extremity: Normal Capillary Refill, Normal Inspection, Normal Range of Motion, Non Tender, No Calf Tenderness, No Pedal Edema Neurologic/Psychiatric: Alert, Oriented x3, No Motor/Sensory Deficits, bank advisor II- XII Norm as Tested, Abnormal Gait, Depressed Affect, Motor Weakness (Generalized 4/5) Skin: Normal Color, Warm/Dry Lymphatic: No Adenopathy Results/Procedures Lab Patient resulted labs reviewed. FIM Transfers Therapy Code Descriptions/Definitions Functional [place] Measure: 0=Not Assessed/NA 4=Minimal Assistance 1=Total Assistance 5=Supervision or Setup 2=Maximal Assistance 6=Modified [place] 3=Moderate Assistance 7=Complete IndependenceSCALE: Activities may be completed with or without assistive devices. 7-Kwgvzhntnq-omibdyk completes the activity by him/herself with no assistance from a helper. 5-Set-up or Clean-up Assistance-helper sets up or cleans up; patient completes activity. [place] assists only prior to or following the activity. 4-Supervision or Touching Assistance-helper provides verbal cues and/or touching/steadying and/or contact guard assistance as patient completes activity. Assistance may be provided throughout the activity or intermittently. 3-Partial/Moderate Assistance-helper does LESS THAN HALF the effort. [place] lifts, holds or supports trunk or limbs, but provides less than half the effort. 2-Substantial/Maximal Assistance-helper does MORE THAN HALF the effort. [place] lifts or holds trunk or limbs and provides more than half the effort. 3-Vjaurrjrk-uhqheu does ALL the effort. Patient does none of the effort to complete the activity. Or, the assistance of 2 or more helpers is required for the patient to complete the activity. If activity was not attempted, code reason: 7-Patient Refused. 9-Not Applicable-not attempted and the patient did not perform the activity before the current illness, exacerbation or injury. 10-Not Attempted due to Environmental Limitations-(lack of equipment, weather restraints, etc.). 88-Not Attempted due to Medical Conditions or Safety Concerns. Roll Left to Right (QC): 6 Sit to Lying (QC): 6 Sit to Stand (QC): 6 Chair/Qhs-rf-Byigr Xfer(QC): 6 Car Transfer (QC): 4 Gait Training Does the Patient Walk?: Yes Distance: 125' x2 Walk 10 feet (QC): 6 Walk 50 ft with 2 Turns(QC): 4 Walk 150 ft (QC): 4 Walking 10ft/uneven surface-QC: 88 Gait Persons Needed: 1 Gait Assistive Device: FWW Wheelchair Training Does the Pt Use a Wheelchair?: Yes Wheel 50 ft with 2 turns (QC): 5 Wheel 150 ft (QC): 5 Type of Wheelchair: Manual Stair Training 1 Step (curb) (QC): 88 4 Steps (QC): 88 12 Steps (QC): 88 Balance Picking up an Object (QC): 4 (CGA using rail car maintenance mechanic) ADL-Treatment Eating (QC): 5 Oral Hygiene (QC): 6 Shower/Bathe Self (QC): 3 (Mod A overall. Assistance with buttocks, drying periarea, washing/drying LEs lower legs/feet.) Upper Body Dressing (QC): 3 (Min A) Lower Body Dressing (QC): 3 (Min A) On/Off Footwear (QC): 3 (Min A ) Toileting Hygiene (QC): 3 (Min A with clothing management, mod VCs for sequencing) Toilet Transfer (QC): 4 (SBA) Assessment/Plan Assessment and Plan Assess & Plan/Chief Complaint Assessment: Disuse myopathy Acute UTI Pseudomonas maintain on cefepime Dehydration improved Hep-Lock IV fluid Hyponatremia resolved 04/07/22 Status post uncomplicated right colectomy by Dr. Blake due to colon mass adenocarcinoma Anemia severe and symptomatic requiring iron infusions in the pasthemoglobin stable today Recent GI bleed 5 weeks ago requiring transfusions Fatigue Afib chronic Diastolic HF Hypothyroidism HTN HLD Hx DVT right leg recently received Lovenox bridge prior to surgery then returned to OAC Chronic back pain Neuropathy Gout Plan: IV abx cefepime to maintain Hep-Lock IV fluid Monitor hemoglobin and transfuse as needed OAC Supportive care Pain control Incentive spirometer Ambulate DC catheter Inpatient rehab 04/25/2022: Maintain antibiotics Supportive care 04/26/2022: Complete antibiotics per protocol 04/27/2022: Supportive care Monitor closely 04/28/2022: Recheck urine (1) Pseudomonas urinary tract infection (2) Myopathy (3) Dehydration (4) Weakness Status: Acute (5) Symptomatic anemia Status: Acute (6) Anticoagulant long-term use Status: Chronic (7) Hypertension Status: Chronic (8) DVT (deep venous thrombosis) Status: Acute (9) Spinal stenosis Status: Chronic (10) Hypothyroidism Status: Chronic (11) Gout Status: Chronic VIOLA SPEARS DO Apr 28, 2022 05:28
[2022-04-28] MEDS: CYANOCOBALAMIN 1,000 MCG (VITAMIN B-12) TABLET PO SCH (06:20)
[2022-04-28] MEDS: PANTOPRAZOLE 40 MG (PROTONIX) TAB PO SCH (06:20)
[2022-04-28] MEDS: LEVOTHYROXINE 75 MCG (LEVOTHROID) TABLET PO SCH (06:20)
[2022-04-28] MEDS: KCL 20 MEQ TAB (K-DUR) PO SCH (06:20)
[2022-04-28 07:06] VITALS: BP 135/85
[2022-04-28] MEDS: APIXABAN 5 MG (ELIQUIS) TABLET PO SCH ×2 (08:07→21:53)
[2022-04-28] MEDS: ALLOPURINOL 100 MG (ZYLOPRIM) TAB PO SCH (08:07)
[2022-04-28] MEDS: DOCUSATE SODIUM 100 MG (COLACE) CAP PO SCH ×2 (08:07→21:30)
[2022-04-28] MEDS: dilTIAZem120 MG (CARDIZEM CD) CAP PO SCH (08:07)
[2022-04-28] MEDS: polyethylene glycoL POWDER 17 GM (MIRALAX) PACK PO SCH ×2 (08:08→21:30)
[2022-04-28] MEDS: SENNA W/DOCUSATE (SENOKOT S) TABLET PO SCH ×2 (08:09→21:30)
[2022-04-28] MEDS: SENNOSIDES 8.6 MG (SENOKOT) TAB PO SCH ×2 (08:09→21:30)
--- NOTE | 2022-04-28 09:48 | Physical Therapy Daily Note ---
PT Daily Note-Current Subjective Pt. agrees to Rx, denies pain but c/o she has been up a lot during the night with frequent urination and that therapies make her so tired. Pain Location: No Pain Reported Section J - Health Conditions 1. Rarely or not at all 2. Occasionally 3. Frequently 4. Almost constantly 8. Unable to answer Pain Effect on Sleep: 1 Pain Interference with Therapy: 1 Pain Interference w/Day-to-Day: 1 Mental Status Patient Orientation: Normal For Age Transfers SCALE: Activities may be completed with or without assistive devices. 8-Ggkmvqwolw-vqwjblf completes the activity by him/herself with no assistance from a helper. 5-Set-up or Clean-up Assistance-helper sets up or cleans up; patient completes activity. [place] assists only prior to or following the activity. 4-Supervision or Touching Assistance-helper provides verbal cues and/or touching/steadying and/or contact guard assistance as patient completes activity. Assistance may be provided throughout the activity or intermittently. 3-Partial/Moderate Assistance-helper does LESS THAN HALF the effort. [place] lifts, holds or supports trunk or limbs, but provides less than half the effort. 2-Substantial/Maximal Assistance-helper does MORE THAN HALF the effort. [place] lifts or holds trunk or limbs and provides more than half the effort. 3-Fbnsjeesf-plntkb does ALL the effort. Patient does none of the effort to complete the activity. Or, the assistance of 2 or more helpers is required for the patient to complete the activity. If activity was not attempted, code reason: 7-Patient Refused. 9-Not Applicable-not attempted and the patient did not perform the activity before the current illness, exacerbation or injury. 10-Not Attempted due to Environmental Limitations-(lack of equipment, weather restraints, etc.). 88-Not Attempted due to Medical Conditions or Safety Concerns. Sit to Stand (QC): 6 Chair/Ked-ys-Tsfnj Xfer(QC): 4 Toilet Transfer (QC): 6 pt. needs instruction for sit to stand as she approaches chair and nearly sits on arm of chair , pt. educated to use B Hands to reach for arms of chair Weight Bearing Full Weight Bearing Full Weight Bearing Gait Training Does the Patient Walk?: Yes Walk 10 feet (QC): 4 Walk 50 ft with 2 Turns(QC): 4 Gait Persons Needed: 1 Gait Assistive Device: FWW [id number] FWW, pt. c/o fatigue and requests breaks Exercises Seated Therapy Exercises: Ankle pumps, Sit to stand, Long arc quads, Hip flexion, Hip abd/add Seated Reps: 12 (x2) NuStep Minutes: 10 NuStep Workload: 1 Assessment Current Status: Good Progress PT Short Term Goals Short Term Goals Time Frame: May 01, 2022 Roll Left & Right: 4 Sit to lyin (Lauren) Lying to sitting on side of be: 3 (Lauren) Sit to stand: 3 (Coleman) Walk 10 feet: 4 (CGA) Walk 50 feet with two turns: 4 (CGA) PT Director Hris Goals Snf Goals PT Director Hris Goals Time Frame: May 08, 2022 Roll Left & Right (QC): 4 (SBA) Sit to Lying (QC): 4 (SBA) Lying-Sitting on Side/Bed(QC): 4 (SBA) Sit to Stand (QC): 4 (SBA) Chair/Woj-ur-Nfvvv Xfer(QC): 4 (SBA) Toilet Transfer (QC): 4 (SBA) Car Transfer (QC): 4 (SBA) Does the Patient Walk: Yes Walk 10 feet (QC): 4 (SBA) Walk 50ft with 2 Turns (QC): 4 (SBA) Walk 150 ft (QC): 4 (SBA) Walking 10ft on Uneven Surface: 4 (SBA) 1 Step (curb) (QC): 4 (CGA) 4 Steps (QC): 88 12 Steps (QC): 88 Picking up an Object (QC): 4 (SBA using employment appeals examiner) Wheel 50 feet with 2 turns (QC: 9 Wheel 150 feet: 9 PT Plan Treatment/Plan Treatment Plan: Continue Plan of Care Treatment Plan: Bed Mobility, Education, Functional Activity Pauline, Functional Strength, Group Therapy, Gait, Safety, Therapeutic Exercise, Transfers Treatment Duration: May 08, 2022 Frequency: At least 5 of 7 days/Wk (IRF) Estimated Hrs Per Day: 1.5 hours per day Patient and/or Family Agrees t: Yes Safety Risks/Education Patient Education: Gait Training, Transfer Techniques, Correct Positioning, Disease Process, Safety Issues Teaching Recipient: Patient Teaching Methods: Demonstration, Discussion Response to Teaching: Verbalize Understanding, Return Demonstration, Reinforcement Needed Time Time In: 845 Time Out: 945 DATE: Apr 28, 2022 Total Billed Treatment Time: 60 Total Billed Treatment 1,GT30m,EX30m REJI WHITE GIS DEVELOPER Apr 28, 2022 09:48
--- NOTE | 2022-04-28 10:35 | Occupational Ther Daily Note ---
OT Current Status-Daily Note Subjective Pt up in recliner, agreeable to OT Tx. Pt's present throughout tx. Mental Status/Objective Patient Orientation: Normal For Age ADL-Treatment Therapy Code Descriptions/Definitions Functional [place] Measure: 0=Not Assessed/NA 4=Minimal Assistance 1=Total Assistance 5=Supervision or Setup 2=Maximal Assistance 6=Modified [place] 3=Moderate Assistance 7=Complete IndependenceSCALE: Activities may be completed with or without assistive devices. 1-Xuzaiqmaug-ezacksn completes the activity by him/herself with no assistance from a helper. 5-Set-up or Clean-up Assistance-helper sets up or cleans up; patient completes activity. [place] assists only prior to or following the activity. 4-Supervision or Touching Assistance-helper provides verbal cues and/or touching/steadying and/or contact guard assistance as patient completes activity. Assistance may be provided throughout the activity or intermittently. 3-Partial/Moderate Assistance-helper does LESS THAN HALF the effort. [place] lifts, holds or supports trunk or limbs, but provides less than half the effort. 2-Substantial/Maximal Assistance-helper does MORE THAN HALF the effort. [place] lifts or holds trunk or limbs and provides more than half the effort. 5-Cwwbsyfut-zsmheq does ALL the effort. Patient does none of the effort to complete the activity. Or, the assistance of 2 or more helpers is required for the patient to complete the activity. If activity was not attempted, code reason: 7-Patient Refused. 9-Not Applicable-not attempted and the patient did not perform the activity before the current illness, exacerbation or injury. 10-Not Attempted due to Environmental Limitations-(lack of equipment, weather restraints, etc.). 88-Not Attempted due to Medical Conditions or Safety Concerns. Oral Hygiene (QC): 4 (SBA) Shower/Bathe Self (QC): 4 (SBA, min VCs for sequencing) Upper Body Dressing (QC): 4 (SBA) Lower Body Dressing (QC): 3 (Min A with pant hike.) On/Off Footwear: 3 (Pt able to doff b/l shoes, able to don L shoe. Assist to don R shoe.) Toileting Hygiene (QC): 4 (SBA) Other Treatment Pt in recliner, sit to stand from recliner, SBA, then SBA using FWW to transfer to toilet. Pt completed toileting, doffed clothes and transferred to SC. Pt completed shower, donned clothes, then sat at sink for oral care/grooming. Pt states fatigued after shower and PT tx, so OT assisted pt to therapy gym via w/c. OT tx focused on increasing BUE strength and activity tolerance, and fine motor strength and coordination. Pt removed beads from moderate resistance theraputty (green). Pt required VCs to locate last 2 beads. Pt then completed UE reaching task, placing 1" pegs into foam pegboard, alternating hands. Pt took rest breaks as needed, completing x100 pegs total. Pt required encouragement throughout tx to participate due to c/o fatigue. OT educated pt on purpose and benefit of OT Tx with focus on improving strength and activity tolerance, she verbalized understanding. Pt propelled w/c part way back to room, s/o fatigue so OT assisted the rest of the way. Pt used FWW to transfer to bed, sit to supine SBA with VCs for positioning. Post tx, pt in bed, call light in reach and all needs met. Education OT Patient Education: Correct positioning, Energy conservation, Modified ADL techniques, Progress toward Goal/Update tx plan, Purpose of tx/functional activities, Rehab process Teaching Recipient: Patient Teaching Methods: Discussion Response to Teaching: Verbalize Understanding OT Short Term Goals Short Term Goals Time Frame: May 10, 2022 Toileting hygiene: 3 Upper body dressin Lower body dressin Putting on/taking off footwear: 3 OT Consulting Application Engineer Goals Usp Goals Time Frame: May 19, 2022 Acute change in mental status: 0 Inattention: 0 Disorganized thinkin Altered level of consciousness: 0 Eating (QC): 6 Oral Hygiene (QC): 6 Toileting Hygiene (QC): 6 Shower/Bathe Self (QC): 4 Upper Body Dressing (QC): 5 Lower Body Dressing (QC): 4 On/Off Footwear (QC): 4 Additional Goals: 1-Demonstrate ADL Tasks, 2-Verbalize Understanding, 3-ImproveStrength/Pauline 1=Demonstrate adherence to instructed precautions during ADL tasks. 2=Patient will verbalize/demonstrate understanding of assistive devices/modifications for ADL. 3=Patient will improve strength/tolerance for activity to enable patient to perform ADL's. OT Education/Plan Problem List/Assessment Assessment: Decreased Activ Tolerance, Decreased UE Strength, Impaired Funct Balance, Impaired I ADL's, Impaired Self-Care Skills Discharge Recommendations Plan/Recommendations: Continue POC Treatment Plan/Plan of Care Patient would benefit from OT for education, treatment and training to promote independence in ADL's, mobility, safety and/or upper extremity function for ADL's. Plan of Care: ADL Retraining, Functional Mobility, Group Exercise/Act as Ind, UE Funct Exercise/Act Treatment Duration: May 19, 2022 Frequency: At least 5 of 7 days/Wk (IRF) Estimated Hrs Per Day: 1.5 hours per day Agreement: Yes Rehab Potential: Fair Time Start Time: 09:45 Stop Time: 11:15 DATE: Apr 28, 2022 Total Time Billed (hr/min): 90 Billed Treatment Time 1, ADL 3 (45'), FA 3 (45') KIKO PANG OT Apr 28, 2022 10:35
[2022-04-28 11:30] LABS: CLARITY,URINE CLEAR; COLOR,URINE YELLOW; GLUCOSE, URINE (UA) NEGATIVE (NEGATIVE); KETONES,URINE TRACE (NEGATIVE); LEUKOCYTE ESTERASE ,URINE NEGATIVE (NEGATIVE); NITRITE,URINE NEGATIVE (NEGATIVE); PH,URINE 6.5 (5-9); PROTEIN,URINE 1+ (NEGATIVE)
[2022-04-28 11:55] LABS: BACTERIA,URINE TRACE /HPF; BILIRUBIN,URINE 1+ (NEGATIVE); RBC,URINE RARE /HPF; SQUAMOUS EPITHELIAL CELL,UR 0-2 /HPF; WBC,URINE RARE /HPF
--- NOTE | 2022-04-28 13:30 | Physical Therapy Daily Note ---
PT Daily Note-Current Subjective Pt. and daughter present. Pt. agrees to Rx. Pain Location: No Pain Reported Section J - Health Conditions 1. Rarely or not at all 2. Occasionally 3. Frequently 4. Almost constantly 8. Unable to answer Pain Effect on Sleep: 1 Pain Interference with Therapy: 1 Pain Interference w/Day-to-Day: 1 Mental Status Patient Orientation: Normal For Age Transfers SCALE: Activities may be completed with or without assistive devices. 9-Ujcazpvhbb-rapbeut completes the activity by him/herself with no assistance from a helper. 5-Set-up or Clean-up Assistance-helper sets up or cleans up; patient completes activity. [place] assists only prior to or following the activity. 4-Supervision or Touching Assistance-helper provides verbal cues and/or touching/steadying and/or contact guard assistance as patient completes activity. Assistance may be provided throughout the activity or intermittently. 3-Partial/Moderate Assistance-helper does LESS THAN HALF the effort. [place] lifts, holds or supports trunk or limbs, but provides less than half the effort. 2-Substantial/Maximal Assistance-helper does MORE THAN HALF the effort. [place] lifts or holds trunk or limbs and provides more than half the effort. 1-Vsjmganvu-ejlxnq does ALL the effort. Patient does none of the effort to complete the activity. Or, the assistance of 2 or more helpers is required for the patient to complete the activity. If activity was not attempted, code reason: 7-Patient Refused. 9-Not Applicable-not attempted and the patient did not perform the activity bef ore the current illness, exacerbation or injury. 10-Not Attempted due to Environmental Limitations-(lack of equipment, weather r estraints, etc.). 88-Not Attempted due to Medical Conditions or Safety Concerns. all sit to stand from recliner and toilet SBA Weight Bearing Full Weight Bearing Full Weight Bearing Gait Training Does the Patient Walk?: Yes Gait Assistive Device: FWW 150ft, 75ftx2, FWW SBA to CGA no LOB, no c/o fatigue Exercises Seated Therapy Exercises: Ankle pumps, Sit to stand, Long arc quads, Hip fle xion, Hip abd/add Seated Reps: 15 Assessment Current Status: Good Progress PT Short Term Goals Short Term Goals Time Frame: May 01, 2022 Roll Left & Right: 4 Sit to lyin (Lauren) Lying to sitting on side of be: 3 (Lauren) Sit to stand: 3 (Coleman) Walk 10 feet: 4 (CGA) Walk 50 feet with two turns: 4 (CGA) PT Flying Instructor Goals Mcc Goals PT Mcc Goals Time Frame: May 08, 2022 Roll Left & Right (QC): 4 (SBA) Sit to Lying (QC): 4 (SBA) Lying-Sitting on Side/Bed(QC): 4 (SBA) Sit to Stand (QC): 4 (SBA) Chair/Atr-dt-Jeuzs Xfer(QC): 4 (SBA) Toilet Transfer (QC): 4 (SBA) Car Transfer (QC): 4 (SBA) Does the Patient Walk: Yes Walk 10 feet (QC): 4 (SBA) Walk 50ft with 2 Turns (QC): 4 (SBA) Walk 150 ft (QC): 4 (SBA) Walking 10ft on Uneven Surface: 4 (SBA) 1 Step (curb) (QC): 4 (CGA) 4 Steps (QC): 88 12 Steps (QC): 88 Picking up an Object (QC): 4 (SBA using alpine guide) Wheel 50 feet with 2 turns (QC: 9 Wheel 150 feet: 9 PT Plan Treatment/Plan Treatment Plan: Continue Plan of Care Treatment Plan: Bed Mobility, Education, Functional Activity Pauline, Functional Strength, Group Therapy, Gait, Safety, Therapeutic Exercise, Transfers Treatment Duration: May 08, 2022 Frequency: At least 5 of 7 days/Wk (IRF) Estimated Hrs Per Day: 1.5 hours per day Patient and/or Family Agrees t: Yes Safety Risks/Education Patient Education: Gait Training Time Time In: 1250 Time Out: 1320 DATE: Apr 28, 2022 Total Billed Treatment Time: 30 Total Billed Treatment 1,GT15m,EX15m REJI WHITE STRATEGIC ACCOUNT DIRECTOR Apr 28, 2022 13:30
[2022-04-28 20:50] VITALS: BP 146/75
[2022-04-29] MEDS: CEFEPIME INJECTION 1,000 MG in NS (IVPB) 50 ML IV SCH ×2 (01:54→10:21)
--- NOTE | 2022-04-29 05:55 | PM&R Progress Note ---
Subjective HPI/CC On Admission Date Seen by Provider: Apr 29, 2022 Time Seen by Provider: 06:00 Subjective/Events-last exam 04/29/2022: Patient doing well Sleeping in a chair Urinary frequency is an issue so started Pyridium since repeat UA with good 04/28/2022: Patient doing well Participating in therapy No pain reported Urine appears cloudy we will recheck urine 04/27/2022: Patient doing a little better Slow recovery Weight loss is noted Participating in therapy 04/26/2022: Patient doing well Strengthening every day No new problems Bowels are moving Slow recovery 04/25/2022: Patient doing really well Very weak Labs stable Bowels moving Overall doing everything she needs to do to get better Review of Systems General: Fatigue Genitourinary: Dysuria, Frequency Objective Exam Vital Signs Vital Signs Date Time Temp Pulse Resp B/P (MAP) Pulse Ox O2 Delivery O2 Flow Rate FiO2 04/29/22 08:52 Room Air 04/29/22 08:00 36.7 85 18 139/79 (99) 97 Capillary Refill : General Appearance: No Apparent Distress, WD/WN, Chronically ill, Obese, Other (Weak and fragile) HEENT: PERRL/EOMI, Normal ENT Inspection, Pharynx Normal Neck: Full Range of Motion, Normal Inspection, Non Tender, Supple, Carotid Bruit Respiratory: Chest Non Tender, Lungs Clear, Normal Breath Sounds, No Accessory Muscle Use, No Respiratory Distress Cardiovascular: No Edema, No Gallop, No JVD, No Murmur, Normal Peripheral Pulses, Irregularly Irregular Gastrointestinal: Normal Bowel Sounds, No Organomegaly, No Pulsatile Mass, Non Tender, Soft Back: Normal Inspection, No CVA Tenderness, No Vertebral Tenderness Extremity: Normal Capillary Refill, Normal Inspection, Normal Range of Motion, Non Tender, No Calf Tenderness, No Pedal Edema Neurologic/Psychiatric: Alert, Oriented x3, No Motor/Sensory Deficits, imposer II- XII Norm as Tested, Abnormal Gait, Depressed Affect, Motor Weakness (Generalized 4/5) Skin: Normal Color, Warm/Dry Lymphatic: No Adenopathy Results/Procedures Lab Patient resulted labs reviewed. FIM Transfers Therapy Code Descriptions/Definitions Functional [place] Measure: 0=Not Assessed/NA 4=Minimal Assistance 1=Total Assistance 5=Supervision or Setup 2=Maximal Assistance 6=Modified [place] 3=Moderate Assistance 7=Complete IndependenceSCALE: Activities may be completed with or without assistive devices. 3-Pswbytveim-ioxizfx completes the activity by him/herself with no assistance from a helper. 5-Set-up or Clean-up Assistance-helper sets up or cleans up; patient completes activity. [place] assists only prior to or following the activity. 4-Supervision or Touching Assistance-helper provides verbal cues and/or touching/steadying and/or contact guard assistance as patient completes a ctivity. Assistance may be provided throughout the activity or intermittently. 3-Partial/Moderate Assistance-helper does LESS THAN HALF the effort. Reader lifts, holds or supports trunk or limbs, but provides less than half the effort. 2-Substantial/Maximal Assistance-helper does MORE THAN HALF the effort. Reader lifts or holds trunk or limbs and provides more than half the effort. 9-Dlyrhdjad-feoqgp does ALL the effort. Patient does none of the effort to complete the activity. Or, the assistance of 2 or more helpers is required for the patient to complete the activity. If activity was not attempted, code reason: 7-Patient Refused. 9-Not Applicable-not attempted and the patient did not perform the activity before the current illness, exacerbation or injury. 10-Not Attempted due to Environmental Limitations-(lack of equipment, weather restraints, etc.). 88-Not Attempted due to Medical Conditions or Safety Concerns. Roll Left to Right (QC): 6 Sit to Lying (QC): 6 Sit to Stand (QC): 6 Chair/Mgj-zs-Qyexv Xfer(QC): 4 Car Transfer (QC): 4 Gait Training Does the Patient Walk?: Yes Distance: 125' x2 Walk 10 feet (QC): 4 Walk 50 ft with 2 Turns(QC): 4 Walk 150 ft (QC): 4 Walking 10ft/uneven surface-QC: 88 Gait Persons Needed: 1 Gait Assistive Device: FWW Wheelchair Training Does the Pt Use a Wheelchair?: Yes Wheel 50 ft with 2 turns (QC): 5 Wheel 150 ft (QC): 5 Type of Wheelchair: Manual Stair Training 1 Step (curb) (QC): 88 4 Steps (QC): 88 12 Steps (QC): 88 Balance Picking up an Object (QC): 4 (CGA using stage rigger) ADL-Treatment Eating (QC): 5 Oral Hygiene (QC): 4 (SBA) Shower/Bathe Self (QC): 4 (SBA, min VCs for sequencing) Upper Body Dressing (QC): 4 (SBA) Lower Body Dressing (QC): 3 (Min A with pant hike.) On/Off Footwear (QC): 3 (Pt able to doff b/l shoes, able to don L shoe. Assist to don R shoe.) Toileting Hygiene (QC): 4 (SBA) Toilet Transfer (QC): 4 (SBA) Assessment/Plan Assessment and Plan Assess & Plan/Chief Complaint Assessment: Disuse myopathy Acute UTI Pseudomonas maintain on cefepime Dehydration improved Hep-Lock IV fluid Hyponatremia resolved 04/07/22 Status post uncomplicated right colectomy by Dr. Blake due to colon mass adenocarcinoma Anemia severe and symptomatic requiring iron infusions in the pasthemoglobin stable today Recent GI bleed 5 weeks ago requiring transfusions Fatigue Afib chronic Diastolic HF Hypothyroidism HTN HLD Hx DVT right leg recently received Lovenox bridge prior to surgery then returned to OAC Chronic back pain Neuropathy Gout Plan: IV abx cefepime to maintain Hep-Lock IV fluid Monitor hemoglobin and transfuse as needed OAC Supportive care Pain control Incentive spirometer Ambulate DC catheter Inpatient rehab 04/25/2022: Maintain antibiotics Supportive care 04/26/2022: Complete antibiotics per protocol 04/27/2022: Supportive care Monitor closely 04/28/2022: Recheck urine 04/29/2022: Pyridium for dysuria (1) Pseudomonas urinary tract infection (2) Myopathy (3) Dehydration (4) Weakness Status: Acute (5) Symptomatic anemia Status: Acute (6) Anticoagulant long-term use Status: Chronic (7) Hypertension Status: Chronic (8) DVT (deep venous thrombosis) Status: Acute (9) Spinal stenosis Status: Chronic (10) Hypothyroidism Status: Chronic (11) Gout Status: Chronic VIOLA SPEARS DO Apr 29, 2022 05:55
[2022-04-29] MEDS: LEVOTHYROXINE 75 MCG (LEVOTHROID) TABLET PO SCH (06:35)
[2022-04-29] MEDS: PANTOPRAZOLE 40 MG (PROTONIX) TAB PO SCH (06:35)
[2022-04-29] MEDS: KCL 20 MEQ TAB (K-DUR) PO SCH (06:35)
[2022-04-29] MEDS: CYANOCOBALAMIN 1,000 MCG (VITAMIN B-12) TABLET PO SCH (06:35)
[2022-04-29 08:00] VITALS: BP 139/79
[2022-04-29] MEDS: APIXABAN 5 MG (ELIQUIS) TABLET PO SCH ×2 (08:24→20:56)
[2022-04-29] MEDS: SENNOSIDES 8.6 MG (SENOKOT) TAB PO SCH ×2 (08:25→20:56)
[2022-04-29] MEDS: ALLOPURINOL 100 MG (ZYLOPRIM) TAB PO SCH (08:25)
[2022-04-29] MEDS: polyethylene glycoL POWDER 17 GM (MIRALAX) PACK PO SCH ×2 (08:25→20:56)
[2022-04-29] MEDS: PHENAZOPYRIDINE 100 MG (PYRIDIUM) TABLET PO SCH ×3 (08:25→18:23)
[2022-04-29] MEDS: DOCUSATE SODIUM 100 MG (COLACE) CAP PO SCH ×2 (08:25→20:56)
[2022-04-29] MEDS: SENNA W/DOCUSATE (SENOKOT S) TABLET PO SCH ×2 (08:25→20:56)
[2022-04-29] MEDS: dilTIAZem120 MG (CARDIZEM CD) CAP PO SCH (08:28)
--- NOTE | 2022-04-29 13:02 | Physical Therapy Daily Note ---
PT Daily Note-Current Subjective Pt in recliner upon arrival and agrees to PT. Reports she is doing okay today. Pain Section J - Health Conditions 1. Rarely or not at all 2. Occasionally 3. Frequently 4. Almost constantly 8. Unable to answer Pain Effect on Sleep: 1 Pain Interference with Therapy: 1 Pain Interference w/Day-to-Day: 1 Mental Status Patient Orientation: Person, Place, Time, Situation Attachments: IV Transfers SCALE: Activities may be completed with or without assistive devices. 7-Pebbfcrhbm-zviknbp completes the activity by him/herself with no assistance from a helper. 5-Set-up or Clean-up Assistance-helper sets up or cleans up; patient completes activity. [place] assists only prior to or following the activity. 4-Supervision or Touching Assistance-helper provides verbal cues and/or t ouching/steadying and/or contact guard assistance as patient completes activity. Assistance may be provided throughout the activity or intermittently. 3-Partial/Moderate Assistance-helper does LESS THAN HALF the effort. [place] lifts, holds or supports trunk or limbs, but provides less than half the effort. 2-Substantial/Maximal Assistance-helper does MORE THAN HALF the effort. [place] lifts or holds trunk or limbs and provides more than half the effort. 0-Izsianuba-rijufh does ALL the effort. Patient does none of the effort to complete the activity. Or, the assistance of 2 or more helpers is required for the patient to complete the activity. If activity was not attempted, code reason: 7-Patient Refused. 9-Not Applicable-not attempted and the patient did not perform the activity before the current illness, exacerbation or injury. 10-Not Attempted due to Environmental Limitations-(lack of equipment, weather restraints, etc.). 88-Not Attempted due to Medical Conditions or Safety Concerns. Sit to Stand (QC): 4 Weight Bearing Full Weight Bearing Full Weight Bearing Gait Training Does the Patient Walk?: Yes Distance: 50 x 2 Walk 10 feet (QC): 4 Walk 50 ft with 2 Turns(QC): 4 Gait Persons Needed: 1 Gait Assistive Device: FWW Treatments Pt TFs from recliner and amb to BR. Pt able to use BR independently. Pt then amb out into chong. Then TFs to recliner and requires rest break. Then pt amb back to room and TFs back to recliner and all needs met and call light nearby as PT departs. Assessment Current Status: Good Progress Pt requires verbal and tactile cues in order to perform TFs correctly. PT Short Term Goals Short Term Goals Time Frame: May 01, 2022 Roll Left & Right: 4 Sit to lyin (Lauren) Lying to sitting on side of be: 3 (Lauren) Sit to stand: 3 (Coleman) Walk 10 feet: 4 (CGA) Walk 50 feet with two turns: 4 (CGA) PT Home Insurance Agent Goals Fpc Goals PT Home Insurance Agent Goals Time Frame: May 08, 2022 Roll Left & Right (QC): 4 (SBA) Sit to Lying (QC): 4 (SBA) Lying-Sitting on Side/Bed(QC): 4 (SBA) Sit to Stand (QC): 4 (SBA) Chair/Ryk-to-Wujvo Xfer(QC): 4 (SBA) Toilet Transfer (QC): 4 (SBA) Car Transfer (QC): 4 (SBA) Does the Patient Walk: Yes Walk 10 feet (QC): 4 (SBA) Walk 50ft with 2 Turns (QC): 4 (SBA) Walk 150 ft (QC): 4 (SBA) Walking 10ft on Uneven Surface: 4 (SBA) 1 Step (curb) (QC): 4 (CGA) 4 Steps (QC): 88 12 Steps (QC): 88 Picking up an Object (QC): 4 (SBA using lead loader) Wheel 50 feet with 2 turns (QC: 9 Wheel 150 feet: 9 PT Plan Problem List Problem List: Activity Tolerance, Functional Strength Treatment/Plan Treatment Plan: Continue Plan of Care Treatment Plan: Bed Mobility, Education, Functional Activity Pauline, Functional Strength, Group Therapy, Gait, Safety, Therapeutic Exercise, Transfers Treatment Duration: May 08, 2022 Frequency: At least 5 of 7 days/Wk (IRF) Estimated Hrs Per Day: 1.5 hours per day Patient and/or Family Agrees t: Yes Safety Risks/Education Patient Education: Transfer Techniques, Correct Positioning Teaching Recipient: Patient Teaching Methods: Discussion Response to Teaching: Return Demonstration Time Time In: 1040 Time Out: 1100 DATE: Apr 29, 2022 Total Billed Treatment Time: 20 Total Billed Treatment 1, GT [facility] Apr 29, 2022 13:02
[2022-04-29 20:13] VITALS: BP 137/77
--- NOTE | 2022-04-30 04:51 | PM&R Progress Note ---
Subjective HPI/CC On Admission Date Seen by Provider: Apr 30, 2022 Time Seen by Provider: 06:00 Subjective/Events-last exam 04/30/2021: Patient doing pretty well Sleeping well Pyridium scheduled is helpful 04/29/2022: Patient doing well Sleeping in a chair Urinary frequency is an issue so started Pyridium since repeat UA with good 04/28/2022: Patient doing well Participating in therapy No pain reported Urine appears cloudy we will recheck urine 04/27/2022: Patient doing a little better Slow recovery Weight loss is noted Participating in therapy 04/26/2022: Patient doing well Strengthening every day No new problems Bowels are moving Slow recovery 04/25/2022: Patient doing really well Very weak Labs stable Bowels moving Overall doing everything she needs to do to get better Review of Systems General: Fatigue, Malaise Objective Exam Vital Signs Vital Signs Date Time Temp Pulse Resp B/P (MAP) Pulse Ox O2 Delivery O2 Flow Rate FiO2 04/30/22 08:17 36.1 80 20 121/76 (91) 95 Room Air Capillary Refill : General Appearance: No Apparent Distress, WD/WN, Chronically ill, Obese, Other (Weak and fragile) HEENT: PERRL/EOMI, Normal ENT Inspection, Pharynx Normal Neck: Full Range of Motion, Normal Inspection, Non Tender, Supple, Carotid Bruit Respiratory: Chest Non Tender, Lungs Clear, Normal Breath Sounds, No Accessory Muscle Use, No Respiratory Distress Cardiovascular: No Edema, No Gallop, No JVD, No Murmur, Normal Peripheral Pulses, Irregularly Irregular Gastrointestinal: Normal Bowel Sounds, No Organomegaly, No Pulsatile Mass, Non Tender, Soft Back: Normal Inspection, No CVA Tenderness, No Vertebral Tenderness Extremity: Normal Capillary Refill, Normal Inspection, Normal Range of Motion, Non Tender, No Calf Tenderness, No Pedal Edema Neurologic/Psychiatric: Alert, Oriented x3, No Motor/Sensory Deficits, home care companion II- XII Norm as Tested, Abnormal Gait, Depressed Affect, Motor Weakness (Generalized 4/5) Skin: Normal Color, Warm/Dry Lymphatic: No Adenopathy Results/Procedures Lab Patient resulted labs reviewed. FIM Transfers Therapy Code Descriptions/Definitions Functional [place] Measure: 0=Not Assessed/NA 4=Minimal Assistance 1=Total Assistance 5=Supervision or Setup 2=Maximal Assistance 6=Modified [place] 3=Moderate Assistance 7=Complete IndependenceSCALE: Activities may be completed with or without assistive devices. 4-Uleiutolun-cnwkzxq completes the activity by him/herself with no assistance from a helper. 5-Set-up or Clean-up Assistance-helper sets up or cleans up; patient completes activity. [place] assists only prior to or following the activity. 4-Supervision or Touching Assistance-helper provides verbal cues and/or touching/steadying and/or contact guard assistance as patient completes activity. Assistance may be provided throughout the activity or intermittently. 3-Partial/Moderate Assistance-helper does LESS THAN HALF the effort. [place] lifts, holds or supports trunk or limbs, but provides less than half the effort. 2-Substantial/Maximal Assistance-helper does MORE THAN HALF the effort. [place] lifts or holds trunk or limbs and provides more than half the effort. 8-Kruwpubow-rtddmm does ALL the effort. Patient does none of the effort to complete the activity. Or, the assistance of 2 or more helpers is required for the patient to complete the activity. If activity was not attempted, code reason: 7-Patient Refused. 9-Not Applicable-not attempted and the patient did not perform the activity before the current illness, exacerbation or injury. 10-Not Attempted due to Environmental Limitations-(lack of equipment, weather restraints, etc.). 88-Not Attempted due to Medical Conditions or Safety Concerns. Roll Left to Right (QC): 6 Sit to Lying (QC): 6 Sit to Stand (QC): 4 Chair/Ffv-qr-Yljrs Xfer(QC): 4 Car Transfer (QC): 4 Gait Training Does the Patient Walk?: Yes Distance: 50 x 2 Walk 10 feet (QC): 4 Walk 50 ft with 2 Turns(QC): 4 Walk 150 ft (QC): 4 Walking 10ft/uneven surface-QC: 88 Gait Persons Needed: 1 Gait Assistive Device: FWW Wheelchair Training Does the Pt Use a Wheelchair?: Yes Wheel 50 ft with 2 turns (QC): 5 Wheel 150 ft (QC): 5 Type of Wheelchair: Manual Stair Training 1 Step (curb) (QC): 88 4 Steps (QC): 88 12 Steps (QC): 88 Balance Picking up an Object (QC): 4 (CGA using director veterinary) ADL-Treatment Eating (QC): 5 Oral Hygiene (QC): 4 (SBA) Shower/Bathe Self (QC): 4 (SBA, min VCs for sequencing) Upper Body Dressing (QC): 4 (SBA) Lower Body Dressing (QC): 3 (Min A with pant hike.) On/Off Footwear (QC): 3 (Pt able to doff b/l shoes, able to don L shoe. Assist to don R shoe.) Toileting Hygiene (QC): 4 (SBA) Toilet Transfer (QC): 4 (SBA) Assessment/Plan Assessment and Plan Assess & Plan/Chief Complaint Assessment: Disuse myopathy Acute UTI Pseudomonas maintain on cefepime Dehydration improved Hep-Lock IV fluid Hyponatremia resolved 04/07/22 Status post uncomplicated right colectomy by Dr. Blake due to colon mass adenocarcinoma Anemia severe and symptomatic requiring iron infusions in the pasthemoglobin stable today Recent GI bleed 5 weeks ago requiring transfusions Fatigue Afib chronic Diastolic HF Hypothyroidism HTN HLD Hx DVT right leg recently received Lovenox bridge prior to surgery then returned to OAC Chronic back pain Neuropathy Gout Plan: IV abx cefepime to maintain Hep-Lock IV fluid Monitor hemoglobin and transfuse as needed OAC Supportive care Pain control Incentive spirometer Ambulate DC catheter Inpatient rehab 04/25/2022: Maintain antibiotics Supportive care 04/26/2022: Complete antibiotics per protocol 04/27/2022: Supportive care Monitor closely 04/28/2022: Recheck urine 04/29/2022: Pyridium for dysuria 04/30/2021: Supportive care (1) Pseudomonas urinary tract infection (2) Myopathy (3) Dehydration (4) Weakness Status: Acute (5) Symptomatic anemia Status: Acute (6) Anticoagulant long-term use Status: Chronic (7) Hypertension Status: Chronic (8) DVT (deep venous thrombosis) Status: Acute (9) Spinal stenosis Status: Chronic (10) Hypothyroidism Status: Chronic (11) Gout Status: Chronic VIOLA SPEARS DO Apr 30, 2022 04:51
[2022-04-30] MEDS: LEVOTHYROXINE 75 MCG (LEVOTHROID) TABLET PO SCH (05:26)
[2022-04-30] MEDS: PANTOPRAZOLE 40 MG (PROTONIX) TAB PO SCH (06:37)
[2022-04-30] MEDS: CYANOCOBALAMIN 1,000 MCG (VITAMIN B-12) TABLET PO SCH (06:37)
[2022-04-30] MEDS: KCL 20 MEQ TAB (K-DUR) PO SCH (06:37)
[2022-04-30] MEDS: ALLOPURINOL 100 MG (ZYLOPRIM) TAB PO SCH (08:16)
[2022-04-30] MEDS: APIXABAN 5 MG (ELIQUIS) TABLET PO SCH ×2 (08:16→20:16)
[2022-04-30] MEDS: PHENAZOPYRIDINE 100 MG (PYRIDIUM) TABLET PO SCH ×3 (08:16→18:01)
[2022-04-30] MEDS: polyethylene glycoL POWDER 17 GM (MIRALAX) PACK PO SCH ×2 (08:16→20:19)
[2022-04-30] MEDS: DOCUSATE SODIUM 100 MG (COLACE) CAP PO SCH ×2 (08:16→20:19)
[2022-04-30 08:17] VITALS: BP 121/76
[2022-04-30] MEDS: SENNOSIDES 8.6 MG (SENOKOT) TAB PO SCH ×2 (08:17→20:19)
[2022-04-30] MEDS: SENNA W/DOCUSATE (SENOKOT S) TABLET PO SCH ×2 (08:17→20:19)
[2022-04-30] MEDS: dilTIAZem120 MG (CARDIZEM CD) CAP PO SCH (09:46)
[2022-04-30 20:05] VITALS: BP 142/92
[2022-04-30] MEDS: ACETAMINOPHEN 325 MG TABLET PO PRN (20:16)
[2022-05-01] MEDS: ACETAMINOPHEN 325 MG TABLET PO PRN ×2 (03:00→23:34)
[2022-05-01] MEDS: PANTOPRAZOLE 40 MG (PROTONIX) TAB PO SCH (06:18)
[2022-05-01] MEDS: LEVOTHYROXINE 75 MCG (LEVOTHROID) TABLET PO SCH (06:18)
[2022-05-01] MEDS: KCL 20 MEQ TAB (K-DUR) PO SCH (06:18)
[2022-05-01] MEDS: CYANOCOBALAMIN 1,000 MCG (VITAMIN B-12) TABLET PO SCH (06:18)
[2022-05-01 06:47] LABS: BASOPHILS % (AUTO) 1 % (0-10); EOSINOPHILS # (AUTO) 0.2 10^3/uL (0.0-0.3); EOSINOPHILS % (AUTO) 4 % (0-10); HEMATOCRIT 36 % (35-52); HEMOGLOBIN 11.1 g/dL (11.5-16.0); LYMPHOCYTES # (AUTO) 2.1 10^3/uL (1.0-4.0); LYMPHOCYTES % (AUTO) 40 % (12-44); MEAN CORPUSCULAR HEMOGLOBIN 29 pg (25-34); MEAN CORPUSCULAR HGB CONC 31 g/dL (32-36); MEAN CORPUSCULAR VOLUME 92 fL (80-99); MONOCYTES # (AUTO) 0.6 10^3/uL (0.0-1.0); MONOCYTES % (AUTO) 10 % (0-12); NEUTROPHILS # (AUTO) 2.4 10^3/uL (1.8-7.8); NEUTROPHILS % (AUTO) 45 % (42-75); PLATELET COUNT 335 10^3/uL (130-400); WHITE BLOOD COUNT 5.4 10^3/uL (4.3-11.0)
[2022-05-01 07:12] LABS: ALBUMIN 3.5 GM/DL (3.2-4.5); BILIRUBIN,TOTAL 0.4 MG/DL (0.1-1.0); CALCIUM 9.3 MG/DL (8.5-10.1); CREATININE SERUM 0.8 MG/DL (0.60-1.30); POTASSIUM 3.8 MMOL/L (3.6-5.0); TOTAL PROTEIN 6.5 GM/DL (6.4-8.2)
--- NOTE | 2022-05-01 07:19 | PM&R Progress Note ---
Subjective HPI/CC On Admission Date Seen by Provider: May 01, 2022 Time Seen by Provider: 10:00 Subjective/Events-last exam 05/01/2021: Patient doing well except OAB issues Pyridium maintained Oxybutynin ordered 04/30/2021: Patient doing pretty well Sleeping well Pyridium scheduled is helpful 04/29/2022: Patient doing well Sleeping in a chair Urinary frequency is an issue so started Pyridium since repeat UA with good 04/28/2022: Patient doing well Participating in therapy No pain reported Urine appears cloudy we will recheck urine 04/27/2022: Patient doing a little better Slow recovery Weight loss is noted Participating in therapy 04/26/2022: Patient doing well Strengthening every day No new problems Bowels are moving Slow recovery 04/25/2022: Patient doing really well Very weak Labs stable Bowels moving Overall doing everything she needs to do to get better Review of Systems General: Fatigue, Malaise Objective Exam Vital Signs Vital Signs Date Time Temp Pulse Resp B/P (MAP) Pulse Ox O2 Delivery O2 Flow Rate FiO2 05/01/22 13:33 95 Room Air 05/01/22 07:56 36.0 84 16 139/85 (103) Capillary Refill : General Appearance: No Apparent Distress, WD/WN, Chronically ill, Obese, Other (Weak and fragile) HEENT: PERRL/EOMI, Normal ENT Inspection, Pharynx Normal Neck: Full Range of Motion, Normal Inspection, Non Tender, Supple, Carotid Bruit Respiratory: Chest Non Tender, Lungs Clear, Normal Breath Sounds, No Accessory Muscle Use, No Respiratory Distress Cardiovascular: No Edema, No Gallop, No JVD, No Murmur, Normal Peripheral Pulses, Irregularly Irregular Gastrointestinal: Normal Bowel Sounds, No Organomegaly, No Pulsatile Mass, Non Tender, Soft Back: Normal Inspection, No CVA Tenderness, No Vertebral Tenderness Extremity: Normal Capillary Refill, Normal Inspection, Normal Range of Motion, Non Tender, No Calf Tenderness, No Pedal Edema Neurologic/Psychiatric: Alert, Oriented x3, No Motor/Sensory Deficits, tagman II- XII Norm as Tested, Abnormal Gait, Depressed Affect, Motor Weakness (Generalized 4/5) Skin: Normal Color, Warm/Dry Lymphatic: No Adenopathy Results/Procedures Lab Laboratory Tests 05/01/22 06:30 Patient resulted labs reviewed. FIM Transfers Therapy Code Descriptions/Definitions Functional [place] Measure: 0=Not Assessed/NA 4=Minimal Assistance 1=Total Assistance 5=Supervision or Setup 2=Maximal Assistance 6=Modified [place] 3=Moderate Assistance 7=Complete IndependenceSCALE: Activities may be completed with or without assistive devices. 6-Oruinlxrdy-jkuhbla completes the activity by him/herself with no assistance from a helper. 5-Set-up or Clean-up Assistance-helper sets up or cleans up; patient completes activity. [place] assists only prior to or following the activity. 4-Supervision or Touching Assistance-helper provides verbal cues and/or touching/steadying and/or contact guard assistance as patient completes activity. Assistance may be provided throughout the activity or intermittently. 3-Partial/Moderate Assistance-helper does LESS THAN HALF the effort. [place] lifts, holds or supports trunk or limbs, but provides less than half the effort. 2-Substantial/Maximal Assistance-helper does MORE THAN HALF the effort. [place] lifts or holds trunk or limbs and provides more than half the effort. 8-Wpwssyniy-gkkzau does ALL the effort. Patient does none of the effort to complete the activity. Or, the assistance of 2 or more helpers is required for the patient to complete the activity. If activity was not attempted, code reason: 7-Patient Refused. 9-Not Applicable-not attempted and the patient did not perform the activity before the current illness, exacerbation or injury. 10-Not Attempted due to Environmental Limitations-(lack of equipment, weather restraints, etc.). 88-Not Attempted due to Medical Conditions or Safety Concerns. Roll Left to Right (QC): 6 Sit to Lying (QC): 6 Sit to Stand (QC): 4 Chair/Zrh-bk-Donhl Xfer(QC): 4 Car Transfer (QC): 4 Gait Training Does the Patient Walk?: Yes Distance: 50 x 2 Walk 10 feet (QC): 4 Walk 50 ft with 2 Turns(QC): 4 Walk 150 ft (QC): 4 Walking 10ft/uneven surface-QC: 88 Gait Persons Needed: 1 Gait Assistive Device: FWW Wheelchair Training Does the Pt Use a Wheelchair?: Yes Wheel 50 ft with 2 turns (QC): 5 Wheel 150 ft (QC): 5 Type of Wheelchair: Manual Stair Training 1 Step (curb) (QC): 88 4 Steps (QC): 88 12 Steps (QC): 88 Balance Picking up an Object (QC): 4 (CGA using children's aide) ADL-Treatment Eating (QC): 5 Oral Hygiene (QC): 4 (SBA) Shower/Bathe Self (QC): 4 (SBA, min VCs for sequencing) Upper Body Dressing (QC): 4 (SBA) Lower Body Dressing (QC): 3 (Min A with pant hike.) On/Off Footwear (QC): 3 (Pt able to doff b/l shoes, able to don L shoe. Assist to don R shoe.) Toileting Hygiene (QC): 4 (SBA) Toilet Transfer (QC): 4 (SBA) Assessment/Plan Assessment and Plan Assess & Plan/Chief Complaint Assessment: Disuse myopathy Acute UTI Pseudomonas maintain on cefepime Dehydration improved Hep-Lock IV fluid Hyponatremia resolved 04/07/22 Status post uncomplicated right colectomy by Dr. Blake due to colon mass adenocarcinoma Anemia severe and symptomatic requiring iron infusions in the pasthemoglobin stable today Recent GI bleed 5 weeks ago requiring transfusions Fatigue Afib chronic Diastolic HF Hypothyroidism HTN HLD Hx DVT right leg recently received Lovenox bridge prior to surgery then returned to OAC Chronic back pain Neuropathy Gout OAB acute and severe starting Oxybutynin Plan: IV abx cefepime to maintain Hep-Lock IV fluid Monitor hemoglobin and transfuse as needed OAC Supportive care Pain control Incentive spirometer Ambulate DC catheter Inpatient rehab 04/25/2022: Maintain antibiotics Supportive care 04/26/2022: Complete antibiotics per protocol 04/27/2022: Supportive care Monitor closely 04/28/2022: Recheck urine 04/29/2022: Pyridium for dysuria 04/30/2021: Supportive care 05/01/2021: Oxybutynin (1) Pseudomonas urinary tract infection (2) Myopathy (3) Dehydration (4) Weakness Status: Acute (5) Symptomatic anemia Status: Acute (6) Anticoagulant long-term use Status: Chronic (7) Hypertension Status: Chronic (8) DVT (deep venous thrombosis) Status: Acute (9) Spinal stenosis Status: Chronic (10) Hypothyroidism Status: Chronic (11) Gout Status: Chronic VIOLA SPEARS DO May 01, 2022 07:19
[2022-05-01 07:56] VITALS: BP 139/85
[2022-05-01] MEDS: ALLOPURINOL 100 MG (ZYLOPRIM) TAB PO SCH (08:20)
[2022-05-01] MEDS: APIXABAN 5 MG (ELIQUIS) TABLET PO SCH ×2 (08:20→20:39)
[2022-05-01] MEDS: dilTIAZem120 MG (CARDIZEM CD) CAP PO SCH (08:20)
[2022-05-01] MEDS: PHENAZOPYRIDINE 100 MG (PYRIDIUM) TABLET PO SCH ×3 (08:20→17:46)
[2022-05-01] MEDS: polyethylene glycoL POWDER 17 GM (MIRALAX) PACK PO SCH ×2 (08:21→20:02)
[2022-05-01] MEDS: DOCUSATE SODIUM 100 MG (COLACE) CAP PO SCH ×2 (08:21→20:02)
[2022-05-01] MEDS: SENNOSIDES 8.6 MG (SENOKOT) TAB PO SCH ×2 (08:21→20:02)
[2022-05-01] MEDS: SENNA W/DOCUSATE (SENOKOT S) TABLET PO SCH ×2 (08:21→20:02)
--- NOTE | 2022-05-01 10:06 | Physical Therapy Daily Note ---
PT Daily Note-Current Subjective Pt sitting in recliner upon arrival. Pt agrees to PT but reports not sleeping well as she wakes frequently for toileting. Pain Location: No Pain Reported Section J - Health Conditions 1. Rarely or not at all 2. Occasionally 3. Frequently 4. Almost constantly 8. Unable to answer Pain Effect on Sleep: 1 Pain Interference with Therapy: 1 Pain Interference w/Day-to-Day: 1 Mental Status Patient Orientation: Person, Place, Situation Transfers SCALE: Activities may be completed with or without assistive devices. 6-Yefvsytpla-xwwnygx completes the activity by him/herself with no assistance from a helper. 5-Set-up or Clean-up Assistance-helper sets up or cleans up; patient completes activity. [place] assists only prior to or following the activity. 4-Supervision or Touching Assistance-helper provides verbal cues and/or touching/steadying and/or contact guard assistance as patient completes acti vity. Assistance may be provided throughout the activity or intermittently. 3-Partial/Moderate Assistance-helper does LESS THAN HALF the effort. [place] lifts, holds or supports trunk or limbs, but provides less than half the effort. 2-Substantial/Maximal Assistance-helper does MORE THAN HALF the effort. [place] lifts or holds trunk or limbs and provides more than half the effort. 5-Vcuetjxwg-qfdqlk does ALL the effort. Patient does none of the effort to complete the activity. Or, the assistance of 2 or more helpers is required for the patient to complete the activity. If activity was not attempted, code reason: 7-Patient Refused. 9-Not Applicable-not attempted and the patient did not perform the activity before the current illness, exacerbation or injury. 10-Not Attempted due to Environmental Limitations-(lack of equipment, weather restraints, etc.). 88-Not Attempted due to Medical Conditions or Safety Concerns. Sit to Stand (QC): 5 Toilet Transfer (QC): 5 Weight Bearing Full Weight Bearing Full Weight Bearing Gait Training Does the Patient Walk?: Yes Distance: 125', 175' Walk 10 feet (QC): 5 Walk 50 ft with 2 Turns(QC): 5 Walk 150 ft (QC): 5 Gait Assistive Device: FWW RB due to fatigue. Exercises NuStep Minutes: 15 NuStep Workload: 5 Treatments TF to standing and uses BR. Pt then amb. in hallway before using NuStep. Pt takes short RB then amb. in hallway, returning to room. Pt resting in recliner w/all needs met, call light in hand & Sp present at end of tx. Assessment Current Status: Good Progress Pt fatigues quickly but this is improving. Transfers are improving and pt is able to complete them SBA. PT Short Term Goals Short Term Goals Time Frame: May 01, 2022 Roll Left & Right: 4 Sit to lyin (Lauren) Lying to sitting on side of be: 3 (Lauren) Sit to stand: 3 (Coleman) Walk 10 feet: 4 (CGA) Walk 50 feet with two turns: 4 (CGA) PT Chemical Tank Worker Goals Chemical Tank Worker Goals PT Chemical Tank Worker Goals Time Frame: May 08, 2022 Roll Left & Right (QC): 4 (SBA) Sit to Lying (QC): 4 (SBA) Lying-Sitting on Side/Bed(QC): 4 (SBA) Sit to Stand (QC): 4 (SBA) Chair/Udn-br-Nquvw Xfer(QC): 4 (SBA) Toilet Transfer (QC): 4 (SBA) Car Transfer (QC): 4 (SBA) Does the Patient Walk: Yes Walk 10 feet (QC): 4 (SBA) Walk 50ft with 2 Turns (QC): 4 (SBA) Walk 150 ft (QC): 4 (SBA) Walking 10ft on Uneven Surface: 4 (SBA) 1 Step (curb) (QC): 4 (CGA) 4 Steps (QC): 88 12 Steps (QC): 88 Picking up an Object (QC): 4 (SBA using millwright helper) Wheel 50 feet with 2 turns (QC: 9 Wheel 150 feet: 9 PT Plan Problem List Problem List: Activity Tolerance Treatment/Plan Treatment Plan: Continue Plan of Care Treatment Plan: Bed Mobility, Education, Functional Activity Pauline, Functional Strength, Group Therapy, Gait, Safety, Therapeutic Exercise, Transfers Treatment Duration: May 08, 2022 Frequency: At least 5 of 7 days/Wk (IRF) Estimated Hrs Per Day: 1.5 hours per day Patient and/or Family Agrees t: Yes Safety Risks/Education Patient Education: Gait Training, Transfer Techniques, Correct Positioning, Safety Issues Teaching Recipient: Patient Teaching Methods: Discussion Response to Teaching: Verbalize Understanding Time Time In: 900 Time Out: 1000 DATE: May 01, 2022 Total Billed Treatment Time: 60 Total Billed Treatment 1, GT x2 (30m), FA (15m) & EX (15m) DARIANA GAMEZ BIOMETRICS INSTRUCTOR May 01, 2022 10:06
--- NOTE | 2022-05-01 11:51 | Occupational Ther Daily Note ---
OT Current Status-Daily Note Subjective No pain reported. Mental Status/Objective Patient Orientation: Person, Place ADL-Treatment Therapy Code Descriptions/Definitions Functional [place] Measure: 0=Not Assessed/NA 4=Minimal Assistance 1=Total Assistance 5=Supervision or Setup 2=Maximal Assistance 6=Modified Luce 3=Moderate Assistance 7=Complete IndependenceSCALE: Activities may be completed with or without assistive devices. 5-Ldjmhrhpaf-nsfgjtb completes the activity by him/herself with no assistance from a helper. 5-Set-up or Clean-up Assistance-helper sets up or cleans up; patient completes activity. [place] assists only prior to or following the activity. 4-Supervision or Touching Assistance-helper provides verbal cues and/or touching/steadying and/or contact guard assistance as patient completes activity. Assistance may be provided throughout the activity or intermittently. 3-Partial/Moderate Assistance-helper does LESS THAN HALF the effort. [place] lifts, holds or supports trunk or limbs, but provides less than half the effort. 2-Substantial/Maximal Assistance-helper does MORE THAN HALF the effort. [place] lifts or holds trunk or limbs and provides more than half the effort. 4-Isuicpshj-odsuzi does ALL the effort. Patient does none of the effort to complete the activity. Or, the assistance of 2 or more helpers is required for the patient to complete the activity. If activity was not attempted, code reason: 7-Patient Refused. 9-Not Applicable-not attempted and the patient did not perform the activity before the current illness, exacerbation or injury. 10-Not Attempted due to Environmental Limitations-(lack of equipment, weather restraints, etc.). 88-Not Attempted due to Medical Conditions or Safety Concerns. Shower/Bathe Self (QC): 4 (SBA in shower.) Upper Body Dressing (QC): 5 (Set up to doff/don fresh nightgown.) Lower Body Dressing (QC): 4 (SBA in stance to don underwear over hips.) On/Off Footwear: 3 (Min assist to don footwear.) Other Treatment After shower, pt. agrees to ambulate with OT. Ambulated approximately 100 feet with SBA and use of walker. Sat and rested before ambulating back to room. Pt. in chair with LE elevated. All needs met. Education OT Patient Education: Correct positioning, Modified ADL techniques, Progress toward Goal/Update tx plan, Purpose of tx/functional activities, Reviewed precautions, Rehab process, Transfer techniques Teaching Recipient: Patient Teaching Methods: Demonstration, Discussion Response to Teaching: Verbalize Understanding, Return Demonstration OT Short Term Goals Short Term Goals Time Frame: May 10, 2022 Toileting hygiene: 3 Upper body dressin Lower body dressin Putting on/taking off footwear: 3 OT Station Helper Goals Station Helper Goals Time Frame: May 19, 2022 Acute change in mental status: 0 Inattention: 0 Disorganized thinkin Altered level of consciousness: 0 Eating (QC): 6 Oral Hygiene (QC): 6 Toileting Hygiene (QC): 6 Shower/Bathe Self (QC): 4 Upper Body Dressing (QC): 5 Lower Body Dressing (QC): 4 On/Off Footwear (QC): 4 Additional Goals: 1-Demonstrate ADL Tasks, 2-Verbalize Understanding, 3- ImproveStrength/Pauline 1=Demonstrate adherence to instructed precautions during ADL tasks. 2=Patient will verbalize/demonstrate understanding of assistive devices/modifications for ADL. 3=Patient will improve strength/tolerance for activity to enable patient to perform ADL's. OT Education/Plan Problem List/Assessment Assessment: Decreased Activ Tolerance, Impaired I ADL's, Impaired Self-Care Skills Discharge Recommendations Plan/Recommendations: Continue POC Treatment Plan/Plan of Care Treatment,Training & Education: Yes Patient would benefit from OT for education, treatment and training to promote independence in ADL's, mobility, safety and/or upper extremity function for ADL's. Plan of Care: ADL Retraining, Functional Mobility, Group Exercise/Act as Ind, UE Funct Exercise/Act Treatment Duration: May 19, 2022 Frequency: At least 5 of 7 days/Wk (IRF) Estimated Hrs Per Day: 1.5 hours per day Agreement: Yes Rehab Potential: Good Time Start Time: 10:30 Stop Time: 11:15 DATE: May 01, 2022 Total Time Billed (hr/min): 45 Billed Treatment Time 1, ADL x 3 MAURICIO JACINTO OT May 01, 2022 11:51
--- NOTE | 2022-05-01 13:12 | Speech Therapy Daily Note ---
Speech Daily Progress Note Subjective Date Seen by Provider: May 01, 2022 Time Seen by Provider: 11:15 The patient was seated upright in her recliner, awake and alert, upon entrance to her room by the clinician. The patient greeted the clinician appropriately and was agreeable to participation in the cognitive linguistic treatment session. The patient's was present at bedside and remained throughout the therapy visit. Objective - Orientation: With the use of the in-room white board (visual aid), the patient was oriented to month, day of the week, date, and year. - The patient was interested in the possibility of discharging prior to the date planned (05/09/22). The clinician provided education regarding discharge dates and how a conversation with the staff members providing care to her would be beneficial to assess for progress and safety. Per patient's , "I think we could get out a little earlier and use one of the services you gave us." The patient's provided the list of home health services to the clinician. The clinician stated she would share their questions with her rug cleaning supervisor so an appropriate discussion could occur. Due to her request, the clinician reviewed possible barriers to a safe discharge and safety precautions in place at her home. The patient (and the patient's ) provided specific details of their home which the prepared as handicap accessible. The clinician reviewed safety precautions with the patient's walker, including how to be seated and stand appropriately. The patient does remain on topic on this date and does respond more quickly than she did throughout previous therapies (increased processing time). Reduced verbal cueing was provided by the clinician on this date for the patient to remain on topic and task. Assessment Assessment Current Status: Fair Progress Treatment Plan Continue Plan of Care Speech Short Term Goals Short Term Goals Short Term Goals 1. The patient will display 80% accuracy with memory exercises with mild clinician verbal cueing. Time Frame-STG: Five Days. Speech Nursing Home Goals Nursing Home Goals 1. The patient will demonstrate improved cognitive linguistic skills for i ncreased safety in the least restrictive environment. Time Frame: Ten Days. Speech-Plan Treatment Plan Speech Therapy Treatment Plan: Continue Plan of Care Treatment Duration: Apr 25, 2022 Frequency: Modified Program (IRF) Estimated Hrs Per Day: .5 hour per day Rehab Potential: Good Safety Risks/Education Teaching Recipient: Patient, Significant Other Teaching Methods: Discussion Response to Teaching: Verbalize Understanding Education Topics Provided: Recommendations, Plan of Care Time Speech Therapy Time In: 11:15 Speech Therapy Time Out: 11:45 DATE: May 01, 2022 Total Billed Time: 30 Billed Treatment Time [facility] May 01, 2022 13:12
--- NOTE | 2022-05-01 14:01 | Occupational Ther Daily Note ---
OT Current Status-Daily Note Subjective No pain reported. Appearance Pt. up in chair. Agrees to work with therapy. Mental Status/Objective Patient Orientation: Person, Place ADL-Treatment Therapy Code Descriptions/Definitions Functional [place] Measure: 0=Not Assessed/NA 4=Minimal Assistance 1=Total Assistance 5=Supervision or Setup 2=Maximal Assistance 6=Modified [place] 3=Moderate Assistance 7=Complete IndependenceSCALE: Activities may be completed with or without assistive devices. 7-Purgqvrxse-rqgrsyd completes the activity by him/herself with no assistance from a helper. 5-Set-up or Clean-up Assistance-helper sets up or cleans up; patient completes activity. [place] assists only prior to or following the activity. 4-Supervision or Touching Assistance-helper provides verbal cues and/or touchi ng/steadying and/or contact guard assistance as patient completes activity. Assistance may be provided throughout the activity or intermittently. 3-Partial/Moderate Assistance-helper does LESS THAN HALF the effort. [place] lifts, holds or supports trunk or limbs, but provides less than half the effort. 2-Substantial/Maximal Assistance-helper does MORE THAN HALF the effort. [place] lifts or holds trunk or limbs and provides more than half the effort. 4-Febzczjnf-uiomas does ALL the effort. Patient does none of the effort to complete the activity. Or, the assistance of 2 or more helpers is required for the patient to complete the activity. If activity was not attempted, code reason: 7-Patient Refused. 9-Not Applicable-not attempted and the patient did not perform the activity before the current illness, exacerbation or injury. 10-Not Attempted due to Environmental Limitations-(lack of equipment, weather restraints, etc.). 88-Not Attempted due to Medical Conditions or Safety Concerns. Toileting Hygiene (QC): 5 (Set up) Toilet Transfer (QC): 4 (SBA to safely transfer onto toilet.) Other Treatment Pt. stands with walker and SBA. Ambulates to bathroom with SBA, and toilets after set up. Stood at sink with SBA and washed hands. Ambulated to therapy gym. Completed bilateral balloon bat back and forth for increased overall endurance. Tolerated approximately 7minutes. Pt. then completed 4 bilateral UE exercises with 2lb. dumbbell x 10 reps each exercise for UE strength and overall endurance. Tolerated well. Pt. ambulated back to room and transferred to chair. LE elevated. All needs met. Education OT Patient Education: Correct positioning, Modified ADL techniques, Progress toward Goal/Update tx plan, Purpose of tx/functional activities, Reviewed precautions, Rehab process, Transfer techniques Teaching Recipient: Patient Teaching Methods: Demonstration, Discussion Response to Teaching: Verbalize Understanding, Return Demonstration OT Short Term Goals Short Term Goals Time Frame: May 10, 2022 Toileting hygiene: 3 Upper body dressin Lower body dressin Putting on/taking off footwear: 3 OT Radiology Director Goals Radiology Director Goals Time Frame: May 19, 2022 Acute change in mental status: 0 Inattention: 0 Disorganized thinkin Altered level of consciousness: 0 Eating (QC): 6 Oral Hygiene (QC): 6 Toileting Hygiene (QC): 6 Shower/Bathe Self (QC): 4 Upper Body Dressing (QC): 5 Lower Body Dressing (QC): 4 On/Off Footwear (QC): 4 Additional Goals: 1-Demonstrate ADL Tasks, 2-Verbalize Understanding, 3- ImproveStrength/Pauline 1=Demonstrate adherence to instructed precautions during ADL tasks. 2=Patient will verbalize/demonstrate understanding of assistive devices/modifications for ADL. 3=Patient will improve strength/tolerance for activity to enable patient to perform ADL's. OT Education/Plan Problem List/Assessment Assessment: Decreased Activ Tolerance Discharge Recommendations Plan/Recommendations: Continue POC Treatment Plan/Plan of Care Treatment,Training & Education: Yes Patient would benefit from OT for education, treatment and training to promote independence in ADL's, mobility, safety and/or upper extremity function for ADL's. Plan of Care: ADL Retraining, Functional Mobility, Group Exercise/Act as Ind, UE Funct Exercise/Act Treatment Duration: May 19, 2022 Frequency: At least 5 of 7 days/Wk (IRF) Estimated Hrs Per Day: 1.5 hours per day Agreement: Yes Rehab Potential: Good Time Start Time: 13:20 Stop Time: 13:50 DATE: May 01, 2022 Total Time Billed (hr/min): 30 Billed Treatment Time 1, ADL x 10minutes, Ex x 20minutes MAURICIO JACINTO OT May 01, 2022 14:01
--- NOTE | 2022-05-01 14:17 | Physical Therapy Daily Note ---
PT Daily Note-Current Subjective Pt sitting in recliner w/Sp present upon arrival. Pt agrees to PT. Pain Location: No Pain Reported Section J - Health Conditions 1. Rarely or not at all 2. Occasionally 3. Frequently 4. Almost constantly 8. Unable to answer Pain Effect on Sleep: 1 Pain Interference with Therapy: 1 Pain Interference w/Day-to-Day: 1 Mental Status Patient Orientation: Person, Place Transfers SCALE: Activities may be completed with or without assistive devices. 5-Gzutbijzbp-sffrpph completes the activity by him/herself with no assistance from a helper. 5-Set-up or Clean-up Assistance-helper sets up or cleans up; patient completes activity. [place] assists only prior to or following the activity. 4-Supervision or Touching Assistance-helper provides verbal cues and/or touching/steadying and/or contact guard assistance as patient completes activity. Assistance may be provided throughout the activity or intermittently. 3-Partial/Moderate Assistance-helper does LESS THAN HALF the effort. [place] lifts, holds or supports trunk or limbs, but provides less than half the effort. 2-Substantial/Maximal Assistance-helper does MORE THAN HALF the effort. [place] lifts or holds trunk or limbs and provides more than half the effort. 5-Amumhgqdd-qhaupy does ALL the effort. Patient does none of the effort to complete the activity. Or, the assistance of 2 or more helpers is required for the patient to complete the activity. If activity was not attempted, code reason: 7-Patient Refused. 9-Not Applicable-not attempted and the patient did not perform the activity before the current illness, exacerbation or injury. 10-Not Attempted due to Environmental Limitations-(lack of equipment, weather restraints, etc.). 88-Not Attempted due to Medical Conditions or Safety Concerns. Sit to Stand (QC): 5 Weight Bearing Full Weight Bearing Full Weight Bearing Treatments Pt, Sp & TURNING MACHINE OPERATOR review progress and if any AE is needed for home. Assessment Current Status: Good Progress Pt has made gains w/indep. of TF and mobility but still fatigues quickly, needing RB. PT Short Term Goals Short Term Goals Time Frame: May 01, 2022 Roll Left & Right: 4 Sit to lyin (Lauren) Lying to sitting on side of be: 3 (Lauren) Sit to stand: 3 (Coleman) Walk 10 feet: 4 (CGA) Walk 50 feet with two turns: 4 (CGA) PT Field Services Director Goals Detention Goals PT Detention Goals Time Frame: May 08, 2022 Roll Left & Right (QC): 4 (SBA) Sit to Lying (QC): 4 (SBA) Lying-Sitting on Side/Bed(QC): 4 (SBA) Sit to Stand (QC): 4 (SBA) Chair/Ext-wc-Xoorw Xfer(QC): 4 (SBA) Toilet Transfer (QC): 4 (SBA) Car Transfer (QC): 4 (SBA) Does the Patient Walk: Yes Walk 10 feet (QC): 4 (SBA) Walk 50ft with 2 Turns (QC): 4 (SBA) Walk 150 ft (QC): 4 (SBA) Walking 10ft on Uneven Surface: 4 (SBA) 1 Step (curb) (QC): 4 (CGA) 4 Steps (QC): 88 12 Steps (QC): 88 Picking up an Object (QC): 4 (SBA using microwave remote sensing scientist) Wheel 50 feet with 2 turns (QC: 9 Wheel 150 feet: 9 PT Plan Problem List Problem List: Activity Tolerance Treatment/Plan Treatment Plan: Continue Plan of Care Treatment Plan: Bed Mobility, Education, Functional Activity Pauline, Functional Strength, Group Therapy, Gait, Safety, Therapeutic Exercise, Transfers Treatment Duration: May 08, 2022 Frequency: At least 5 of 7 days/Wk (IRF) Estimated Hrs Per Day: 1.5 hours per day Patient and/or Family Agrees t: Yes Time Time In: 1300 Time Out: 1315 DATE: May 01, 2022 Total Billed Treatment Time: 15 Total Billed Treatment 1, FA (15m) DARIANA GAMEZ PTA May 01, 2022 14:17
[2022-05-01] MEDS: OXYBUTYNIN (DITROPAN) 5 MG TAB PO SCH ×2 (16:11→20:39)
[2022-05-01 20:55] VITALS: BP 118/80
--- NOTE | 2022-05-02 06:00 | PM&R Progress Note ---
Subjective HPI/CC On Admission Date Seen by Provider: May 02, 2022 Time Seen by Provider: 09:00 Subjective/Events-last exam 05/02/2021: Patient doing a lot better strength jin Urinary frequency still continues Oxybutynin maintained Pyridium maintained 05/01/2021: Patient doing well except OAB issues Pyridium maintained Oxybutynin ordered 04/30/2021: Patient doing pretty well Sleeping well Pyridium scheduled is helpful 04/29/2022: Patient doing well Sleeping in a chair Urinary frequency is an issue so started Pyridium since repeat UA with good 04/28/2022: Patient doing well Participating in therapy No pain reported Urine appears cloudy we will recheck urine 04/27/2022: Patient doing a little better Slow recovery Weight loss is noted Participating in therapy 04/26/2022: Patient doing well Strengthening every day No new problems Bowels are moving Slow recovery 04/25/2022: Patient doing really well Very weak Labs stable Bowels moving Overall doing everything she needs to do to get better Review of Systems General: Fatigue, Malaise Objective Exam Vital Signs Vital Signs Date Time Temp Pulse Resp B/P (MAP) Pulse Ox O2 Delivery O2 Flow Rate FiO2 05/02/22 21:10 97 Room Air 05/02/22 19:50 36.1 93 16 148/84 (105) Capillary Refill : General Appearance: No Apparent Distress, WD/WN, Chronically ill, Obese, Other (Weak and fragile) HEENT: PERRL/EOMI, Normal ENT Inspection, Pharynx Normal Neck: Full Range of Motion, Normal Inspection, Non Tender, Supple, Carotid Bruit Respiratory: Chest Non Tender, Lungs Clear, Normal Breath Sounds, No Accessory Muscle Use, No Respiratory Distress Cardiovascular: No Edema, No Gallop, No JVD, No Murmur, Normal Peripheral Pulses, Irregularly Irregular Gastrointestinal: Normal Bowel Sounds, No Organomegaly, No Pulsatile Mass, Non Tender, Soft Back: Normal Inspection, No CVA Tenderness, No Vertebral Tenderness Extremity: Normal Capillary Refill, Normal Inspection, Normal Range of Motion, Non Tender, No Calf Tenderness, No Pedal Edema Neurologic/Psychiatric: Alert, Oriented x3, No Motor/Sensory Deficits, microbiology lab assistant II- XII Norm as Tested, Abnormal Gait, Depressed Affect, Motor Weakness (Generalized 4/5) Skin: Normal Color, Warm/Dry Lymphatic: No Adenopathy Results/Procedures Lab Patient resulted labs reviewed. FIM Transfers Therapy Code Descriptions/Definitions Functional [place] Measure: 0=Not Assessed/NA 4=Minimal Assistance 1=Total Assistance 5=Supervision or Setup 2=Maximal Assistance 6=Modified [place] 3=Moderate Assistance 7=Complete IndependenceSCALE: Activities may be completed with or without assistive devices. 1-Bpqztvhwve-kqhtuyv completes the activity by him/herself with no assistance from a helper. 5-Set-up or Clean-up Assistance-helper sets up or cleans up; patient completes activity. [place] assists only prior to or following the activity. 4-Supervision or Touching Assistance-helper provides verbal cues and/or touching/steadying and/or contact guard assistance as patient completes activity . Assistance may be provided throughout the activity or intermittently. 3-Partial/Moderate Assistance-helper does LESS THAN HALF the effort. [place] lifts, holds or supports trunk or limbs, but provides less than half the effort. 2-Substantial/Maximal Assistance-helper does MORE THAN HALF the effort. [place] lifts or holds trunk or limbs and provides more than half the effort. 1-Iahvqbqyg-usaipz does ALL the effort. Patient does none of the effort to complete the activity. Or, the assistance of 2 or more helpers is required for the patient to complete the activity. If activity was not attempted, code reason: 7-Patient Refused. 9-Not Applicable-not attempted and the patient did not perform the activity before the current illness, exacerbation or injury. 10-Not Attempted due to Environmental Limitations-(lack of equipment, weather restraints, etc.). 88-Not Attempted due to Medical Conditions or Safety Concerns. Roll Left to Right (QC): 6 Sit to Lying (QC): 6 Sit to Stand (QC): 5 Chair/Kdd-ps-Rkmje Xfer(QC): 4 Car Transfer (QC): 4 Gait Training Does the Patient Walk?: Yes Distance: 125', 175' Walk 10 feet (QC): 5 Walk 50 ft with 2 Turns(QC): 5 Walk 150 ft (QC): 5 Walking 10ft/uneven surface-QC: 88 Gait Persons Needed: 1 Gait Assistive Device: FWW Wheelchair Training Does the Pt Use a Wheelchair?: Yes Wheel 50 ft with 2 turns (QC): 5 Wheel 150 ft (QC): 5 Type of Wheelchair: Manual Stair Training 1 Step (curb) (QC): 88 4 Steps (QC): 88 12 Steps (QC): 88 Balance Picking up an Object (QC): 4 (CGA using supervisor asbestos textile) ADL-Treatment Eating (QC): 5 Oral Hygiene (QC): 4 (SBA) Shower/Bathe Self (QC): 4 (SBA in shower.) Upper Body Dressing (QC): 5 (Set up to doff/don fresh nightgown.) Lower Body Dressing (QC): 4 (SBA in stance to don underwear over hips.) On/Off Footwear (QC): 3 (Min assist to don footwear.) Toileting Hygiene (QC): 5 (Set up) Toilet Transfer (QC): 4 (SBA to safely transfer onto toilet.) Assessment/Plan Assessment and Plan Assess & Plan/Chief Complaint Assessment: Disuse myopathy Acute UTI Pseudomonas maintain on cefepime Dehydration improved Hep-Lock IV fluid Hyponatremia resolved 04/07/22 Status post uncomplicated right colectomy by Dr. Blake due to colon mass adenocarcinoma Anemia severe and symptomatic requiring iron infusions in the pasthemoglobin stable today Recent GI bleed 5 weeks ago requiring transfusions Fatigue Afib chronic Diastolic HF Hypothyroidism HTN HLD Hx DVT right leg recently received Lovenox bridge prior to surgery then returned to OAC Chronic back pain Neuropathy Gout OAB acute and severe starting Oxybutynin Plan: IV abx cefepime to maintain Hep-Lock IV fluid Monitor hemoglobin and transfuse as needed OAC Supportive care Pain control Incentive spirometer Ambulate DC catheter Inpatient rehab 04/25/2022: Maintain antibiotics Supportive care 04/26/2022: Complete antibiotics per protocol 04/27/2022: Supportive care Monitor closely 04/28/2022: Recheck urine 04/29/2022: Pyridium for dysuria 04/30/2021: Supportive care 05/01/2021: Oxybutynin 05/02/2021: Oxybutynin Pyridium (1) Pseudomonas urinary tract infection (2) Myopathy (3) Dehydration (4) Weakness Status: Acute (5) Symptomatic anemia Status: Acute (6) Anticoagulant long-term use Status: Chronic (7) Hypertension Status: Chronic (8) DVT (deep venous thrombosis) Status: Acute (9) Spinal stenosis Status: Chronic (10) Hypothyroidism Status: Chronic (11) Gout Status: Chronic VIOLA SPEARS DO May 02, 2022 06:00
[2022-05-02] MEDS: LEVOTHYROXINE 75 MCG (LEVOTHROID) TABLET PO SCH (06:42)
[2022-05-02] MEDS: KCL 20 MEQ TAB (K-DUR) PO SCH (06:42)
[2022-05-02] MEDS: CYANOCOBALAMIN 1,000 MCG (VITAMIN B-12) TABLET PO SCH (06:43)
[2022-05-02] MEDS: PANTOPRAZOLE 40 MG (PROTONIX) TAB PO SCH (06:43)
[2022-05-02] MEDS: APIXABAN 5 MG (ELIQUIS) TABLET PO SCH ×2 (07:40→20:21)
[2022-05-02] MEDS: dilTIAZem120 MG (CARDIZEM CD) CAP PO SCH (07:40)
[2022-05-02] MEDS: ALLOPURINOL 100 MG (ZYLOPRIM) TAB PO SCH (07:40)
[2022-05-02] MEDS: PHENAZOPYRIDINE 100 MG (PYRIDIUM) TABLET PO SCH ×3 (07:40→18:01)
[2022-05-02] MEDS: OXYBUTYNIN (DITROPAN) 5 MG TAB PO SCH ×2 (07:40→20:21)
[2022-05-02] MEDS: polyethylene glycoL POWDER 17 GM (MIRALAX) PACK PO SCH ×2 (07:41→20:22)
[2022-05-02] MEDS: SENNA W/DOCUSATE (SENOKOT S) TABLET PO SCH ×2 (07:41→20:22)
[2022-05-02] MEDS: DOCUSATE SODIUM 100 MG (COLACE) CAP PO SCH ×2 (07:41→20:21)
[2022-05-02] MEDS: SENNOSIDES 8.6 MG (SENOKOT) TAB PO SCH ×2 (07:42→20:22)
[2022-05-02 07:51] VITALS: BP 142/86
--- NOTE | 2022-05-02 09:15 | Physical Therapy Daily Note ---
PT Daily Note-Current Subjective Pt sitting in recliner upon arrival. Pt agrees to PT and asks to use BR. Pain Location: No Pain Reported Section J - Health Conditions 1. Rarely or not at all 2. Occasionally 3. Frequently 4. Almost constantly 8. Unable to answer Pain Effect on Sleep: 1 Pain Interference with Therapy: 1 Pain Interference w/Day-to-Day: 1 Mental Status Patient Orientation: Person, Place, Situation Transfers SCALE: Activities may be completed with or without assistive devices. 8-Rdcsqbeqtl-nftzcie completes the activity by him/herself with no assistance from a helper. 5-Set-up or Clean-up Assistance-helper sets up or cleans up; patient completes activity. [place] assists only prior to or following the activity. 4-Supervision or Touching Assistance-helper provides verbal cues and/or touching/steadying and/or contact guard assistance as patient completes activity. Assistance may be provided throughout the activity or intermittently. 3-Partial/Moderate Assistance-helper does LESS THAN HALF the effort. [place] lifts, holds or supports trunk or limbs, but provides less than half the effort. 2-Substantial/Maximal Assistance-helper does MORE THAN HALF the effort. [place] lifts or holds trunk or limbs and provides more than half the effort. 3-Xcpqxakzf-uavpyr does ALL the effort. Patient does none of the effort to complete the activity. Or, the assistance of 2 or more helpers is required for the patient to complete the activity. If activity was not attempted, code reason: 7-Patient Refused. 9-Not Applicable-not attempted and the patient did not perform the activity before the current illness, exacerbation or injury. 10-Not Attempted due to Environmental Limitations-(lack of equipment, weather restraints, etc.). 88-Not Attempted due to Medical Conditions or Safety Concerns. Sit to Stand (QC): 5 Toilet Transfer (QC): 5 Weight Bearing Full Weight Bearing Full Weight Bearing Gait Training Does the Patient Walk?: Yes Distance: 125' x2 Walk 10 feet (QC): 5 Walk 50 ft with 2 Turns(QC): 5 Gait Assistive Device: FWW Wheelchair Training Does the Pt Use a Wheelchair?: No Exercises Seated Therapy Exercises: Ankle pumps, Long arc quads, Hip flexion, Hip abd/add, Glut set Seated Reps: 15 Treatments TF to standing and amb. to BR. Pt amb. in hallway and to Therapy Gym. Pt completes Seated Ex. followed by RB. Pt uses NuStep then amb. in hallway, returning to room to rest in recliner. All needs met, call light in hand. Assessment Current Status: Good Progress Pt's TF have improved but pt still struggles w/fatigue. Pt needs encouragement to push self for improved progress of activity narayan. PT Short Term Goals Short Term Goals Time Frame: May 01, 2022 Roll Left & Right: 4 Sit to lyin (Lauren) Lying to sitting on side of be: 3 (Lauren) Sit to stand: 3 (Coleman) Walk 10 feet: 4 (CGA) Walk 50 feet with two turns: 4 (CGA) PT Correction Goals Correction Goals PT Buggy Operator Goals Time Frame: May 08, 2022 Roll Left & Right (QC): 4 (SBA) Sit to Lying (QC): 4 (SBA) Lying-Sitting on Side/Bed(QC): 4 (SBA) Sit to Stand (QC): 4 (SBA) Chair/Vfr-gb-Qdjrs Xfer(QC): 4 (SBA) Toilet Transfer (QC): 4 (SBA) Car Transfer (QC): 4 (SBA) Does the Patient Walk: Yes Walk 10 feet (QC): 4 (SBA) Walk 50ft with 2 Turns (QC): 4 (SBA) Walk 150 ft (QC): 4 (SBA) Walking 10ft on Uneven Surface: 4 (SBA) 1 Step (curb) (QC): 4 (CGA) 4 Steps (QC): 88 12 Steps (QC): 88 Picking up an Object (QC): 4 (SBA using sneller hand) Wheel 50 feet with 2 turns (QC: 9 Wheel 150 feet: 9 PT Plan Problem List Problem List: Activity Tolerance Treatment/Plan Treatment Plan: Continue Plan of Care Treatment Plan: Bed Mobility, Education, Functional Activity Pauline, Functional Strength, Group Therapy, Gait, Safety, Therapeutic Exercise, Transfers Treatment Duration: May 08, 2022 Frequency: At least 5 of 7 days/Wk (IRF) Estimated Hrs Per Day: 1.5 hours per day Patient and/or Family Agrees t: Yes Time Time In: 800 Time Out: 915 DATE: May 02, 2022 Total Billed Treatment Time: 75 Total Billed Treatment 1, 1, FA (20m), EX x2 (30m) & GT x2 (25m) DAIRANA GAMEZ DIAL LATHE OPERATOR May 02, 2022 09:15
--- NOTE | 2022-05-02 11:10 | Occupational Ther Daily Note ---
OT Current Status-Daily Note Subjective Pt up in recliner, agreeable to OT Tx. ADL-Treatment Therapy Code Descriptions/Definitions Functional [place] Measure: 0=Not Assessed/NA 4=Minimal Assistance 1=Total Assistance 5=Supervision or Setup 2=Maximal Assistance 6=Modified [place] 3=Moderate Assistance 7=Complete IndependenceSCALE: Activities may be completed with or without assistive devices. 7-Nbcqjspimw-yxklpoh completes the activity by him/herself with no assistance from a helper. 5-Set-up or Clean-up Assistance-helper sets up or cleans up; patient completes activity. [place] assists only prior to or following the activity. 4-Supervision or Touching Assistance-helper provides verbal cues and/or touching/steadying and/or contact guard assistance as patient completes activity. Assistance may be provided throughout the activity or intermittently. 3-Partial/Moderate Assistance-helper does LESS THAN HALF the effort. [place] lifts, holds or supports trunk or limbs, but provides less than half the effort. 2-Substantial/Maximal Assistance-helper does MORE THAN HALF the effort. [place] lifts or holds trunk or limbs and provides more than half the effort. 8-Mxravqcxp-syninh does ALL the effort. Patient does none of the effort to co mplete the activity. Or, the assistance of 2 or more helpers is required for the patient to complete the activity. If activity was not attempted, code reason: 7-Patient Refused. 9-Not Applicable-not attempted and the patient did not perform the activity before the current illness, exacerbation or injury. 10-Not Attempted due to Environmental Limitations-(lack of equipment, weather restraints, etc.). 88-Not Attempted due to Medical Conditions or Safety Concerns. Toileting Hygiene (QC): 6 Toilet Transfer (QC): 6 Other Treatment Pt up in recliner, used FWW to transfer into bathroom and onto toilet. Pt completed toileting, then stood at sink to wash her hands. Pt used FWW to perform functional mobility to therapy gym, independently. OT tx focused on increasing BUE Strength and activity tolerance. Pt completed arm bike, x15 mins, 20 Watt resistance, 4 rest breaks required. Pt then removed beads from moderate resistance (green) theraputty to increase fine motor/cloth winder strength. Pt able to locate all beads without cues. Pt completed BUE reaching activity, placing 1" pegs into foam pegboard, alternating hands. Pt able to complete x100 pegs. Pt returned to room using FWW, independently. Post tx, pt in recliner, call light in reach and all needs met. Education OT Patient Education: Correct positioning, Energy conservation, Modified ADL techniques, Progress toward Goal/Update tx plan, Purpose of tx/functional activities, Rehab process Teaching Recipient: Patient Teaching Methods: Discussion Response to Teaching: Verbalize Understanding OT Short Term Goals Short Term Goals Time Frame: May 10, 2022 Toileting hygiene: 3 Upper body dressin Lower body dressin Putting on/taking off footwear: 3 OT Focused Factory Manager Goals Care Home Goals Time Frame: May 19, 2022 Acute change in mental status: 0 Inattention: 0 Disorganized thinkin Altered level of consciousness: 0 Eating (QC): 6 Oral Hygiene (QC): 6 Toileting Hygiene (QC): 6 Shower/Bathe Self (QC): 4 Upper Body Dressing (QC): 5 Lower Body Dressing (QC): 4 On/Off Footwear (QC): 4 Additional Goals: 1-Demonstrate ADL Tasks, 2-Verbalize Understanding, 3- ImproveStrength/Pauline 1=Demonstrate adherence to instructed precautions during ADL tasks. 2=Patient will verbalize/demonstrate understanding of assistive devices/modifications for ADL. 3=Patient will improve strength/tolerance for activity to enable patient to perform ADL's. OT Education/Plan Problem List/Assessment Assessment: Decreased Activ Tolerance, Decreased UE Strength, Impaired I ADL's, Impaired Self-Care Skills Discharge Recommendations Plan/Recommendations: Continue POC Treatment Plan/Plan of Care Patient would benefit from OT for education, treatment and training to promote independence in ADL's, mobility, safety and/or upper extremity function for ADL's. Plan of Care: ADL Retraining, Functional Mobility, Group Exercise/Act as Ind, UE Funct Exercise/Act Treatment Duration: May 19, 2022 Frequency: At least 5 of 7 days/Wk (IRF) Estimated Hrs Per Day: 1.5 hours per day Agreement: Yes Rehab Potential: Good Time Start Time: 10:45 Stop Time: 12:00 DATE: May 02, 2022 Total Time Billed (hr/min): 75 Billed Treatment Time 1, ADL (15'), EX (15'), FA 3 (45') KIKO PANG OT May 02, 2022 11:10
--- NOTE | 2022-05-02 11:46 | Speech Therapy Daily Note ---
Speech Daily Progress Note Subjective Date Seen by Provider: May 02, 2022 Time Seen by Provider: 09:30 The patient was seated upright in her recliner, awake and alert, upon entrance to her room by the clinician. The patient greeted the clinician appropriately and was agreeable to participation in the cognitive linguistic treatment session. Objective - Orientation: The patient was independently oriented to location, city, month, and year. - Functional Recall: The patient was able to accurately recall the therapy tasks and events of the morning. The patient displayed appropriate carry-over stating her was "looking into" purchasing an exercise bike for the home. The patient remains on task and topic on this date. The patient appears more alert, with less confusion overall. Per patient's , "It was like she was in a fog last week but she's back." The clinician agrees with the 's statement and does experience an improvement with the patient's participation and awareness. Assessment Assessment Current Status: Good Progress Treatment Plan Continue Plan of Care Speech Short Term Goals Short Term Goals Short Term Goals 1. The patient will display 80% accuracy with memory exercises with mild clinician verbal cueing. Time Frame-STG: Five Days. Speech Property Man Goals Property Man Goals 1. The patient will demonstrate improved cognitive linguistic skills for increased safety in the least restrictive environment. Time Frame: Ten Days. Speech-Plan Treatment Plan Speech Therapy Treatment Plan: Continue Plan of Care Treatment Duration: Apr 25, 2022 Frequency: Modified Program (IRF) Estimated Hrs Per Day: .5 hour per day Rehab Potential: Good Safety Risks/Education Teaching Recipient: Patient Teaching Methods: Discussion Response to Teaching: Reinforcement Needed Education Topics Provided: Plan of Care, Recommendations Time Speech Therapy Time In: 09:30 Speech Therapy Time Out: 10:00 DATE: May 02, 2022 Total Billed Time: 30 Billed Treatment Time 1JANUSZAVE DANIEL NAVARRO May 02, 2022 11:46
[2022-05-02] MEDS: CATHETER FLUSH 10 ML SYR IVP SCH ×2 (14:08→20:23)
[2022-05-02 19:50] VITALS: BP 148/84
[2022-05-02] MEDS: ESTRADIOL VAGINAL CREAM 42.5 GM (ESTRACE) VG SCH (20:21)
[2022-05-03] MEDS: KCL 20 MEQ TAB (K-DUR) PO SCH (06:14)
[2022-05-03] MEDS: CATHETER FLUSH 10 ML SYR IVP SCH ×3 (06:14→20:14)
[2022-05-03] MEDS: LEVOTHYROXINE 75 MCG (LEVOTHROID) TABLET PO SCH (06:14)
[2022-05-03] MEDS: PANTOPRAZOLE 40 MG (PROTONIX) TAB PO SCH (06:14)
[2022-05-03] MEDS: CYANOCOBALAMIN 1,000 MCG (VITAMIN B-12) TABLET PO SCH (06:14)
[2022-05-03 07:12] VITALS: BP 147/100
[2022-05-03] MEDS: APIXABAN 5 MG (ELIQUIS) TABLET PO SCH ×2 (07:51→20:13)
[2022-05-03] MEDS: dilTIAZem120 MG (CARDIZEM CD) CAP PO SCH (07:51)
[2022-05-03] MEDS: DOCUSATE SODIUM 100 MG (COLACE) CAP PO SCH ×2 (07:51→21:08)
[2022-05-03] MEDS: OXYBUTYNIN (DITROPAN) 5 MG TAB PO SCH ×2 (07:51→20:13)
[2022-05-03] MEDS: PHENAZOPYRIDINE 100 MG (PYRIDIUM) TABLET PO SCH ×3 (07:51→18:58)
[2022-05-03] MEDS: ALLOPURINOL 100 MG (ZYLOPRIM) TAB PO SCH (07:51)
[2022-05-03] MEDS: SENNA W/DOCUSATE (SENOKOT S) TABLET PO SCH ×2 (07:53→21:09)
[2022-05-03] MEDS: polyethylene glycoL POWDER 17 GM (MIRALAX) PACK PO SCH ×2 (07:53→21:08)
[2022-05-03] MEDS: SENNOSIDES 8.6 MG (SENOKOT) TAB PO SCH ×2 (07:53→21:09)
--- NOTE | 2022-05-03 08:24 | Occupational Ther Daily Note ---
OT Current Status-Daily Note Subjective Pt agreeable to OT Tx. Pt feels like she is ready to discharge home and would leave today if we let her. Mental Status/Objective Patient Orientation: Person, Place, Time, Situation ADL-Treatment Therapy Code Descriptions/Definitions Functional [place] Measure: 0=Not Assessed/NA 4=Minimal Assistance 1=Total Assistance 5=Supervision or Setup 2=Maximal Assistance 6=Modified [place] 3=Moderate Assistance 7=Complete IndependenceSCALE: Activities may be completed with or without assistive devices. 0-Cwntafaqny-hfjnhwx completes the activity by him/herself with no assistance from a helper. 5-Set-up or Clean-up Assistance-helper sets up or cleans up; patient completes activity. [place] assists only prior to or following the activity. 4-Supervision or Touching Assistance-helper provides verbal cues and/or touching/steadying and/or contact guard assistance as patient completes activity. Assistance may be provided throughout the activity or intermittently. 3-Partial/Moderate Assistance-helper does LESS THAN HALF the effort. [place] lif ts, holds or supports trunk or limbs, but provides less than half the effort. 2-Substantial/Maximal Assistance-helper does MORE THAN HALF the effort. [place] lifts or holds trunk or limbs and provides more than half the effort. 3-Dipblavgf-yhacvy does ALL the effort. Patient does none of the effort to complete the activity. Or, the assistance of 2 or more helpers is required for the patient to complete the activity. If activity was not attempted, code reason: 7-Patient Refused. 9-Not Applicable-not attempted and the patient did not perform the activity before the current illness, exacerbation or injury. 10-Not Attempted due to Environmental Limitations-(lack of equipment, weather restraints, etc.). 88-Not Attempted due to Medical Conditions or Safety Concerns. Eating (QC): 6 Oral Hygiene (QC): 6 Shower/Bathe Self (QC): 6 Upper Body Dressing (QC): 6 Lower Body Dressing (QC): 6 On/Off Footwear: 6 Toileting Hygiene (QC): 6 Toilet Transfer (QC): 6 Other Treatment Pt in recliner, used FWW to gather clothes, stand at sink to remove dentures, complete toileting, then showering, dressing, and grooming tasks standing at sink. Pt independent with all ADLS, no LOB noted. Pt took seated rest break, then used FWW to perform functional mobility to therapy gym, independently. OT tx focused on increasing BUE Strength and activity tolerance, and fine motor strength/coordination. Pt completed arm bike x15 mins, 15 watt resistance, 2 rest breaks. Pt then removed beads from moderate resistance (green) theraputty. Pt able to locate all beads without cues. Post tx, pt seated in therapy gym, all needs met, PT present for tx. Education OT Patient Education: Correct positioning, Energy conservation, Exercise program, Modified ADL techniques, Progress toward Goal/Update tx plan, Purpose of tx/functional activities, Rehab process Teaching Recipient: Patient Teaching Methods: Discussion Response to Teaching: Verbalize Understanding BIMS CAM BIMS Expression of Ideas and Wants: Without Difficulty Understanding Verbal Content: Understands Brief Interview/Mental Status: Yes IRF SARWAT BIMS: IRF SARWAT BIMS Response (Comments) Value Repitition of Three Words Three 3 Recalls Socks Yes, No Cue Required 2 Recalls Blue Yes, No Cue Required 2 Recalls Bed Yes, No Cue Required 2 Year Correct 3 Month Accurate Within 5 Days 2 Day Correct 1 Total 15 Should Staff Asses. Mental St[address] No CAM Mental Status Change/Baseline: 0 Inattention: 0 Disorganized thinkin Altered level of consciousness: 0 OT Short Term Goals Short Term Goals Time Frame: May 10, 2022 Toileting hygiene: 3 Upper body dressin Lower body dressin Putting on/taking off footwear: 3 OT Marketing Automation Analyst Goals Marketing Automation Analyst Goals Time Frame: May 19, 2022 Acute change in mental status: 0 Inattention: 0 Disorganized thinkin Altered level of consciousness: 0 Eating (QC): 6 (met) Oral Hygiene (QC): 6 (met) Toileting Hygiene (QC): 6 (met) Shower/Bathe Self (QC): 4 (met) Upper Body Dressing (QC): 5 (met) Lower Body Dressing (QC): 4 (met) On/Off Footwear (QC): 4 (met) Additional Goals: 1-Demonstrate ADL Tasks, 2-Verbalize Understanding, 3- ImproveStrength/Pauline 1=Demonstrate adherence to instructed precautions during ADL tasks. 2=Patient will verbalize/demonstrate understanding of assistive devices/modifications for ADL. 3=Patient will improve strength/tolerance for activity to enable patient to perform ADL's. OT Education/Plan Problem List/Assessment Assessment: Decreased Activ Tolerance, Decreased UE Strength, Impaired I ADL's Discharge Recommendations Plan/Recommendations: Continue POC Treatment Plan/Plan of Care Patient would benefit from OT for education, treatment and training to promote independence in ADL's, mobility, safety and/or upper extremity function for ADL's. Plan of Care: ADL Retraining, Functional Mobility, Group Exercise/Act as Ind, UE Funct Exercise/Act Treatment Duration: May 19, 2022 Frequency: At least 5 of 7 days/Wk (IRF) Estimated Hrs Per Day: 1.5 hours per day Agreement: Yes Rehab Potential: Good Time Start Time: 07:45 Stop Time: 09:00 DATE: May 03, 2022 Total Time Billed (hr/min): 75 Billed Treatment Time 1, ADL 3 (45'), EX (15'), FA (15') KIKO PANG OT May 03, 2022 08:24
--- NOTE | 2022-05-03 10:02 | PM&R Progress Note ---
Subjective HPI/CC On Admission Date Seen by Provider: May 03, 2022 Time Seen by Provider: 11:00 Subjective/Events-last exam 05/03/2022: Doing well OAB still an issues Oxybutynin maintained 05/02/2022: Patient doing a lot better strength jin Urinary frequency still continues Oxybutynin maintained Pyridium maintained 05/01/2022: Patient doing well except OAB issues Pyridium maintained Oxybutynin ordered 04/30/2022: Patient doing pretty well Sleeping well Pyridium scheduled is helpful 04/29/2022: Patient doing well Sleeping in a chair Urinary frequency is an issue so started Pyridium since repeat UA with good 04/28/2022: Patient doing well Participating in therapy No pain reported Urine appears cloudy we will recheck urine 04/27/2022: Patient doing a little better Slow recovery Weight loss is noted Participating in therapy 04/26/2022: Patient doing well Strengthening every day No new problems Bowels are moving Slow recovery 04/25/2022: Patient doing really well Very weak Labs stable Bowels moving Overall doing everything she needs to do to get better Review of Systems General: Fatigue, Malaise Objective Exam Vital Signs Vital Signs Date Time Temp Pulse Resp B/P (MAP) Pulse Ox O2 Delivery O2 Flow Rate FiO2 05/03/22 20:21 36.4 84 20 127/83 (98) 96 Room Air Capillary Refill : General Appearance: No Apparent Distress, WD/WN, Chronically ill, Obese, Other (Weak and fragile) HEENT: PERRL/EOMI, Normal ENT Inspection, Pharynx Normal Neck: Full Range of Motion, Normal Inspection, Non Tender, Supple, Carotid Bruit Respiratory: Chest Non Tender, Lungs Clear, Normal Breath Sounds, No Accessory Muscle Use, No Respiratory Distress Cardiovascular: No Edema, No Gallop, No JVD, No Murmur, Normal Peripheral Pulses, Irregularly Irregular Gastrointestinal: Normal Bowel Sounds, No Organomegaly, No Pulsatile Mass, Non Tender, Soft Back: Normal Inspection, No CVA Tenderness, No Vertebral Tenderness Extremity: Normal Capillary Refill, Normal Inspection, Normal Range of Motion, Non Tender, No Calf Tenderness, No Pedal Edema Neurologic/Psychiatric: Alert, Oriented x3, No Motor/Sensory Deficits, lean manufacturing coordinator II- XII Norm as Tested, Abnormal Gait, Depressed Affect, Motor Weakness (Generalized 4/5) Skin: Normal Color, Warm/Dry Lymphatic: No Adenopathy Results/Procedures Lab Patient resulted labs reviewed. FIM Transfers Therapy Code Descriptions/Definitions Functional [place] Measure: 0=Not Assessed/NA 4=Minimal Assistance 1=Total Assistance 5=Supervision or Setup 2=Maximal Assistance 6=Modified [place] 3=Moderate Assistance 7=Complete IndependenceSCALE: Activities may be completed with or without assistive devices. 3-Vbtllxaicn-lcbciep completes the activity by him/herself with no assistance from a helper. 5-Set-up or Clean-up Assistance-helper sets up or cleans up; patient completes activity. [place] assists only prior to or following the activity. 4-Supervision or Touching Assistance-helper provides verbal cues and/or touching/steadying and/or contact guard assistance as patient completes activity. Assistance may be provided throughout the activity or intermittently. 3-Partial/Moderate Assistance-helper does LESS THAN HALF the effort. [place] lifts, holds or supports trunk or limbs, but provides less than half the effort. 2-Substantial/Maximal Assistance-helper does MORE THAN HALF the effort. [place] lifts or holds trunk or limbs and provides more than half the effort. 2-Befntebww-jfhmgm does ALL the effort. Patient does none of the effort to complete the activity. Or, the assistance of 2 or more helpers is required for the patient to complete the activity. If activity was not attempted, code reason: 7-Patient Refused. 9-Not Applicable-not attempted and the patient did not perform the activity before the current illness, exacerbation or injury. 10-Not Attempted due to Environmental Limitations-(lack of equipment, weather restraints, etc.). 88-Not Attempted due to Medical Conditions or Safety Concerns. Roll Left to Right (QC): 6 Sit to Lying (QC): 6 Sit to Stand (QC): 5 Chair/Vwi-mk-Jvstc Xfer(QC): 4 Car Transfer (QC): 4 Gait Training Does the Patient Walk?: Yes Distance: 125' x2 Walk 10 feet (QC): 5 Walk 50 ft with 2 Turns(QC): 5 Walk 150 ft (QC): 5 Walking 10ft/uneven surface-QC: 88 Gait Persons Needed: 1 Gait Assistive Device: FWW Wheelchair Training Does the Pt Use a Wheelchair?: No Wheel 50 ft with 2 turns (QC): 5 Wheel 150 ft (QC): 5 Type of Wheelchair: Manual Stair Training 1 Step (curb) (QC): 88 4 Steps (QC): 88 12 Steps (QC): 88 Balance Picking up an Object (QC): 4 (CGA using chief recordist) ADL-Treatment Eating (QC): 6 Oral Hygiene (QC): 6 Shower/Bathe Self (QC): 6 Upper Body Dressing (QC): 6 Lower Body Dressing (QC): 6 On/Off Footwear (QC): 6 Toileting Hygiene (QC): 6 Toilet Transfer (QC): 6 Assessment/Plan Assessment and Plan Assess & Plan/Chief Complaint Assessment: Disuse myopathy Acute UTI Pseudomonas maintain on cefepime Dehydration improved Hep-Lock IV fluid Hyponatremia resolved 04/07/22 Status post uncomplicated right colectomy by Dr. Blake due to colon mass adenocarcinoma Anemia severe and symptomatic requiring iron infusions in the pasthemoglobin stable today Recent GI bleed 5 weeks ago requiring transfusions Fatigue Afib chronic Diastolic HF Hypothyroidism HTN HLD Hx DVT right leg recently received Lovenox bridge prior to surgery then returned to OAC Chronic back pain Neuropathy Gout OAB acute and severe starting Oxybutynin Plan: IV abx cefepime to maintain Hep-Lock IV fluid Monitor hemoglobin and transfuse as needed OAC Supportive care Pain control Incentive spirometer Ambulate DC catheter Inpatient rehab 04/25/2022: Maintain antibiotics Supportive care 04/26/2022: Complete antibiotics per protocol 04/27/2022: Supportive care Monitor closely 04/28/2022: Recheck urine 04/29/2022: Pyridium for dysuria 04/30/2022: Supportive care 05/01/2022: Oxybutynin 05/02/2022: Oxybutynin Pyridium 05/03/2022: OAB management (1) Pseudomonas urinary tract infection (2) Myopathy (3) Dehydration (4) Weakness Status: Acute (5) Symptomatic anemia Status: Acute (6) Anticoagulant long-term use Status: Chronic (7) Hypertension Status: Chronic (8) DVT (deep venous thrombosis) Status: Acute (9) Spinal stenosis Status: Chronic (10) Hypothyroidism Status: Chronic (11) Gout Status: Chronic VIOLA SPEARS DO May 03, 2022 10:01
--- NOTE | 2022-05-03 10:10 | Speech Therapy Daily Note ---
Speech Daily Progress Note Subjective Date Seen by Provider: May 03, 2022 Time Seen by Provider: 10:45 The patient was seated upright in her recliner, awake and alert, upon entrance to her room by the clinician. The patient greeted the clinician appropriately and was agreeable to participation in the cognitive linguistic treatment session. The patient's is present for the treatment on this date. Objective - Orientation: The patient is independently oriented on this date, stating month, day of the week, date, and year without cueing (visual or verbal) from the clinician. - Functional Recall: The patient recalled the information shared from her plan of care meeting with the clinician. The patient is eager to discharge home with the aid of her and states she does not have any specific barriers in mind that may result in a difficult transition to her home environment. The patient accurately recalled skilled treatment with occupational therapy, as her statements correlated with the treatment note reviewed by this therapist. The clinician and patient (with the 's participation) reviewed safety precautions in her home, including using the accessible equipment available (shower bench, walker). Assessment Assessment Current Status: Good Progress Treatment Plan Continue Plan of Care Speech Short Term Goals Short Term Goals Short Term Goals 1. The patient will display 80% accuracy with memory exercises with mild clinician verbal cueing. Time Frame-STG: Five Days. Speech Housing Assistant Goals Housing Assistant Goals 1. The patient will demonstrate improved cognitive linguistic skills for increased safety in the least restrictive environment. Time Frame: Ten Days. Speech-Plan Treatment Plan Speech Therapy Treatment Plan: Continue Plan of Care Treatment Duration: Apr 25, 2022 Frequency: Modified Program (IRF) Estimated Hrs Per Day: .5 hour per day Rehab Potential: Good Safety Risks/Education Teaching Recipient: Patient Teaching Methods: Discussion Response to Teaching: Verbalize Understanding Education Topics Provided: Plan of Care, Safety Precautions Time Speech Therapy Time In: 10:45 Speech Therapy Time Out: 11:15 DATE: May 03, 2022 Total Billed Time: 30 Billed Treatment Time Ronen JANUSZAVE DANIEL NAVARRO May 03, 2022 10:10
[2022-05-03] MEDS: ESTRADIOL VAGINAL CREAM 42.5 GM (ESTRACE) VG SCH ×2 (10:37→20:13)
--- NOTE | 2022-05-03 11:38 | Physical Therapy Daily Note ---
PT Daily Note-Current Subjective Pt sitting in recliner upon arrival. Pt agrees to PT. Pain Location: No Pain Reported Section J - Health Conditions 1. Rarely or not at all 2. Occasionally 3. Frequently 4. Almost constantly 8. Unable to answer Pain Effect on Sleep: 1 Pain Interference with Therapy: 1 Pain Interference w/Day-to-Day: 1 Mental Status Patient Orientation: Person, Place, Situation Transfers SCALE: Activities may be completed with or without assistive devices. 7-Bzgwzhondi-tlxuwlx completes the activity by him/herself with no assistance from a helper. 5-Set-up or Clean-up Assistance-helper sets up or cleans up; patient completes activity. [place] assists only prior to or following the activity. 4-Supervision or Touching Assistance-helper provides verbal cues and/or touching/steadying and/or contact guard assistance as patient completes activity. Assistance may be provided throughout the activity or intermittently. 3-Partial/Moderate Assistance-helper does LESS THAN HALF the effort. [place] lifts, holds or supports trunk or limbs, but provides less than half the effort. 2-Substantial/Maximal Assistance-helper does MORE THAN HALF the effort. [place] lifts or holds trunk or limbs and provides more than half the effort. 5-Fmnafkjlp-jfdmcg does ALL the effort. Patient does none of the effort to complete the activity. Or, the assistance of 2 or more helpers is required for the patient to complete the activity. If activity was not attempted, code reason: 7-Patient Refused. 9-Not Applicable-not attempted and the patient did not perform the activity before the current illness, exacerbation or injury. 10-Not Attempted due to Environmental Limitations-(lack of equipment, weather restraints, etc.). 88-Not Attempted due to Medical Conditions or Safety Concerns. Roll Left & Right (QC): 6 Sit to Lying (QC): 6 Lying to Sitting/Side of Bed(Q: 6 Sit to Stand (QC): 6 Chair/Qcs-nx-Gswxj Xfer(QC): 6 Toilet Transfer (QC): 6 Car Transfer (QC): 6 Weight Bearing Full Weight Bearing Full Weight Bearing Gait Training Does the Patient Walk?: Yes Distance: 150' Walk 10 feet (QC): 6 Walk 50 ft with 2 Turns(QC): 6 Walk 150 ft (QC): 6 Walking 10ft/uneven surface-QC: 6 Gait Assistive Device: FWW Wheelchair Training Does the Pt Use a Wheelchair?: No Stair Training Stair Training: Handrails/: 2 handrails #of Steps: 4 1 Step (curb) (QC): 5 4 Steps (QC): 4 12 Steps (QC): 88 Stairs: Pattern: Step to Balance Picking up an Object (QC): 6 Treatments Pt completes QC scoring items listed above. Pt takes RB as needed for fatigue. Pt returns to room to rest in recliner after using BR. All needs met, call light in hand. Assessment Current Status: Good Progress Pt is [place]. tx well but still fatigues, needing RB at times. PT Short Term Goals Short Term Goals Time Frame: May 01, 2022 Roll Left & Right: 4 Sit to lyin (Lauren) Lying to sitting on side of be: 3 (Lauren) Sit to stand: 3 ([place]) Walk 10 feet: 4 (CGA) Walk 50 feet with two turns: 4 (CGA) PT Diet Supervisor Goals Diet Supervisor Goals PT Halfway Goals Time Frame: May 08, 2022 Roll Left & Right (QC): 4 (SBA) Sit to Lying (QC): 4 (SBA) Lying-Sitting on Side/Bed(QC): 4 (SBA) Sit to Stand (QC): 4 (SBA) Chair/Hen-pt-Uijjs Xfer(QC): 4 (SBA) Toilet Transfer (QC): 4 (SBA) Car Transfer (QC): 4 (SBA) Does the Patient Walk: Yes Walk 10 feet (QC): 4 (SBA) Walk 50ft with 2 Turns (QC): 4 (SBA) Walk 150 ft (QC): 4 (SBA) Walking 10ft on Uneven Surface: 4 (SBA) 1 Step (curb) (QC): 4 (CGA) 4 Steps (QC): 88 12 Steps (QC): 88 Picking up an Object (QC): 4 (SBA using certified nurse midwife) Wheel 50 feet with 2 turns (QC: 9 Wheel 150 feet: 9 PT Plan Problem List Problem List: Activity Tolerance Treatment/Plan Treatment Plan: Continue Plan of Care Treatment Plan: Bed Mobility, Education, Functional Activity Pauline, Functional Strength, Group Therapy, Gait, Safety, Therapeutic Exercise, Transfers Treatment Duration: May 08, 2022 Frequency: At least 5 of 7 days/Wk (IRF) Estimated Hrs Per Day: 1.5 hours per day Patient and/or Family Agrees t: Yes Time Time In: 900 Time Out: 1015 DATE: May 03, 2022 Total Billed Treatment Time: 75 Total Billed Treatment 1, GT (20m), EX (15m) & FA x3 (40m) DARIANA GAMEZ FILENET ADMIN May 03, 2022 11:38
[2022-05-03] MEDS ORDERED: SALINE NASAL SPRAY (OCEAN) 45 ML BTL PRN (11:45)
[2022-05-03] MEDS: ACETAMINOPHEN 325 MG TABLET PO PRN (20:14)
[2022-05-03 20:21] VITALS: BP 127/83
--- NOTE | 2022-05-04 05:07 | PM&R Progress Note ---
Subjective HPI/CC On Admission Date Seen by Provider: May 04, 2022 Time Seen by Provider: 12:00 Subjective/Events-last exam 05/04/2022: DC planned for tomorrow Improved urinary frequency No pain 05/03/2022: Doing well OAB still an issues Oxybutynin maintained 05/02/2022: Patient doing a lot better strength jin Urinary frequency still continues Oxybutynin maintained Pyridium maintained 05/01/2022: Patient doing well except OAB issues Pyridium maintained Oxybutynin ordered 04/30/2022: Patient doing pretty well Sleeping well Pyridium scheduled is helpful 04/29/2022: Patient doing well Sleeping in a chair Urinary frequency is an issue so started Pyridium since repeat UA with good 04/28/2022: Patient doing well Participating in therapy No pain reported Urine appears cloudy we will recheck urine 04/27/2022: Patient doing a little better Slow recovery Weight loss is noted Participating in therapy 04/26/2022: Patient doing well Strengthening every day No new problems Bowels are moving Slow recovery 04/25/2022: Patient doing really well Very weak Labs stable Bowels moving Overall doing everything she needs to do to get better Review of Systems General: Fatigue, Malaise Objective Exam Vital Signs Vital Signs Date Time Temp Pulse Resp B/P (MAP) Pulse Ox O2 Delivery O2 Flow Rate FiO2 05/04/22 20:10 Room Air 05/04/22 19:56 36.3 79 16 128/86 (100) 95 Capillary Refill : General Appearance: No Apparent Distress, WD/WN, Chronically ill, Obese, Other (Weak and fragile) HEENT: PERRL/EOMI, Normal ENT Inspection, Pharynx Normal Neck: Full Range of Motion, Normal Inspection, Non Tender, Supple, Carotid Bruit Respiratory: Chest Non Tender, Lungs Clear, Normal Breath Sounds, No Accessory Muscle Use, No Respiratory Distress Cardiovascular: No Edema, No Gallop, No JVD, No Murmur, Normal Peripheral Pulses, Irregularly Irregular Gastrointestinal: Normal Bowel Sounds, No Organomegaly, No Pulsatile Mass, Non Tender, Soft Back: Normal Inspection, No CVA Tenderness, No Vertebral Tenderness Extremity: Normal Capillary Refill, Normal Inspection, Normal Range of Motion, Non Tender, No Calf Tenderness, No Pedal Edema Neurologic/Psychiatric: Alert, Oriented x3, No Motor/Sensory Deficits, structural steel fitter II- XII Norm as Tested, Abnormal Gait, Depressed Affect, Motor Weakness (Generalized 4/5) Skin: Normal Color, Warm/Dry Lymphatic: No Adenopathy Results/Procedures Lab Patient resulted labs reviewed. FIM Transfers Therapy Code Descriptions/Definitions Functional [place] Measure: 0=Not Assessed/NA 4=Minimal Assistance 1=Total Assistance 5=Supervision or Setup 2=Maximal Assistance 6=Modified [place] 3=Moderate Assistance 7=Complete IndependenceSCALE: Activities may be completed with or without assistive devices. 7-Thgwgdrkyy-htyiziw completes the activity by him/herself with no assistance from a helper. 5-Set-up or Clean-up Assistance-helper sets up or cleans up; patient completes activity. [place] assists only prior to or following the activity. 4-Supervision or Touching Assistance-helper provides verbal cues and/or touching/steadying and/or contact guard assistance as patient completes activity. Assistance may be provided throughout the activity or intermittently. 3-Partial/Moderate Assistance-helper does LESS THAN HALF the effort. [place] lifts, holds or supports trunk or limbs, but provides less than half the effort. 2-Substantial/Maximal Assistance-helper does MORE THAN HALF the effort. [place] lifts or holds trunk or limbs and provides more than half the effort. 5-Rgwnapzkv-pbetsw does ALL the effort. Patient does none of the effort to complete the activity. Or, the assistance of 2 or more helpers is required for the patient to complete the activity. If activity was not attempted, code reason: 7-Patient Refused. 9-Not Applicable-not attempted and the patient did not perform the activity before the current illness, exacerbation or injury. 10-Not Attempted due to Environmental Limitations-(lack of equipment, weather restraints, etc.). 88-Not Attempted due to Medical Conditions or Safety Concerns. Roll Left to Right (QC): 6 Sit to Lying (QC): 6 Sit to Stand (QC): 6 Chair/Pva-eu-Cftvz Xfer(QC): 6 Car Transfer (QC): 6 Gait Training Does the Patient Walk?: Yes Distance: 150' Walk 10 feet (QC): 6 Walk 50 ft with 2 Turns(QC): 6 Walk 150 ft (QC): 6 Walking 10ft/uneven surface-QC: 6 Gait Persons Needed: 1 Gait Assistive Device: FWW Wheelchair Training Does the Pt Use a Wheelchair?: No Wheel 50 ft with 2 turns (QC): 5 Wheel 150 ft (QC): 5 Type of Wheelchair: Manual Stair Training Stair Training: Handrails/: 2 handrails #of Steps: 4 1 Step (curb) (QC): 5 4 Steps (QC): 4 12 Steps (QC): 88 Stairs: Pattern: Step to Balance Picking up an Object (QC): 6 ADL-Treatment Eating (QC): 6 Oral Hygiene (QC): 6 Shower/Bathe Self (QC): 6 Upper Body Dressing (QC): 6 Lower Body Dressing (QC): 6 On/Off Footwear (QC): 6 Toileting Hygiene (QC): 6 Toilet Transfer (QC): 6 Assessment/Plan Assessment and Plan Assess & Plan/Chief Complaint Assessment: Disuse myopathy Acute UTI Pseudomonas maintain on cefepime Dehydration improved Hep-Lock IV fluid Hyponatremia resolved 04/07/22 Status post uncomplicated right colectomy by Dr. Blake due to colon mass adenocarcinoma Anemia severe and symptomatic requiring iron infusions in the pasthemoglobin stable today Recent GI bleed 5 weeks ago requiring transfusions Fatigue Afib chronic Diastolic HF Hypothyroidism HTN HLD Hx DVT right leg recently received Lovenox bridge prior to surgery then returned to OAC Chronic back pain Neuropathy Gout OAB acute and severe starting Oxybutynin Plan: IV abx cefepime to maintain Hep-Lock IV fluid Monitor hemoglobin and transfuse as needed OAC Supportive care Pain control Incentive spirometer Ambulate DC catheter Inpatient rehab 04/25/2022: Maintain antibiotics Supportive care 04/26/2022: Complete antibiotics per protocol 04/27/2022: Supportive care Monitor closely 04/28/2022: Recheck urine 04/29/2022: Pyridium for dysuria 04/30/2022: Supportive care 05/01/2022: Oxybutynin 05/02/2022: Oxybutynin Pyridium 05/03/2022: OAB management 05/04/2022: Monitor closely DC tomorrow (1) Pseudomonas urinary tract infection (2) Myopathy (3) Dehydration (4) Weakness Status: Acute (5) Symptomatic anemia Status: Acute (6) Anticoagulant long-term use Status: Chronic (7) Hypertension Status: Chronic (8) DVT (deep venous thrombosis) Status: Acute (9) Spinal stenosis Status: Chronic (10) Hypothyroidism Status: Chronic (11) Gout Status: Chronic VIOLA SPEARS DO May 04, 2022 05:07
[2022-05-04] MEDS: CATHETER FLUSH 10 ML SYR IVP SCH ×3 (06:10→20:04)
[2022-05-04] MEDS: LEVOTHYROXINE 75 MCG (LEVOTHROID) TABLET PO SCH (06:10)
[2022-05-04] MEDS: PANTOPRAZOLE 40 MG (PROTONIX) TAB PO SCH (06:50)
[2022-05-04] MEDS: CYANOCOBALAMIN 1,000 MCG (VITAMIN B-12) TABLET PO SCH (06:50)
[2022-05-04] MEDS: KCL 20 MEQ TAB (K-DUR) PO SCH (06:50)
[2022-05-04 08:00] VITALS: BP 125/89
--- NOTE | 2022-05-04 08:30 | Speech Therapy Daily Note ---
Speech Daily Progress Note Subjective Date Seen by Provider: May 04, 2022 Time Seen by Provider: 09:15 The patient was seated upright in her recliner, awake and alert, upon entrance to her room by the clinician. The patient greeted the clinician appropriately and was agreeable to participation in the cognitive linguistic treatment session. Objective Due to discharge on the subsequent date, the clinician completed the SLUMS for comparison of cognitive growth throughout the patient's stay. At admission, the patient displayed a result of +17/30 on the SLUMS. On this date, the patient displayed a result of +25/30 on the SLUMS. The patient has displayed great improvement and stated, "I am now remembering things I couldn't do last week. The fogginess isn't there." The clinician encouraged the patient to continue cognitive tasks she enjoys, such as genealogy and reading. At this time, the patient has met the initial speech pathology goals placed by this clinician. Assessment Assessment Current Status: Good Progress Treatment Plan Discontinue ST Speech Short Term Goals Short Term Goals Short Term Goals 1. The patient will display 80% accuracy with memory exercises with mild clinician verbal cueing. Time Frame-STG: Five Days. Speech Information Technology Teacher Goals [facility] Goals 1. The patient will demonstrate improved cognitive linguistic skills for increased safety in the least restrictive environment. Time Frame: Ten Days. Speech-Plan Treatment Plan Speech Therapy Treatment Plan: Discontinue ST, Goals Met Treatment Duration: Apr 25, 2022 Frequency: Modified Program (IRF) Estimated Hrs Per Day: .5 hour per day Rehab Potential: Good Safety Risks/Education Teaching Recipient: Patient Teaching Methods: Discussion Response to Teaching: Verbalize Understanding Education Topics Provided: Results, Recommendations Time Speech Therapy Time In: 09:15 Speech Therapy Time Out: 09:45 DATE: May 04, 2022 Total Billed Time: 30 Billed Treatment Time 1, DANIEL ZENDEJAS May 04, 2022 08:30
[2022-05-04] MEDS: APIXABAN 5 MG (ELIQUIS) TABLET PO SCH ×2 (08:39→20:04)
[2022-05-04] MEDS: ALLOPURINOL 100 MG (ZYLOPRIM) TAB PO SCH (08:39)
[2022-05-04] MEDS: OXYBUTYNIN (DITROPAN) 5 MG TAB PO SCH ×2 (08:39→20:04)
[2022-05-04] MEDS: SENNOSIDES 8.6 MG (SENOKOT) TAB PO SCH ×2 (08:39→20:06)
[2022-05-04] MEDS: polyethylene glycoL POWDER 17 GM (MIRALAX) PACK PO SCH ×3 (08:39→20:05)
[2022-05-04] MEDS: DOCUSATE SODIUM 100 MG (COLACE) CAP PO SCH ×2 (08:39→20:05)
[2022-05-04] MEDS: SENNA W/DOCUSATE (SENOKOT S) TABLET PO SCH ×2 (08:39→20:05)
[2022-05-04] MEDS: PHENAZOPYRIDINE 100 MG (PYRIDIUM) TABLET PO SCH ×3 (08:39→18:42)
[2022-05-04] MEDS: ESTRADIOL VAGINAL CREAM 42.5 GM (ESTRACE) VG SCH ×2 (08:40→20:04)
[2022-05-04] MEDS: dilTIAZem120 MG (CARDIZEM CD) CAP PO SCH (08:42)
--- NOTE | 2022-05-04 09:04 | Physical Therapy Daily Note ---
PT Daily Note-Current Subjective Pt. up in recliner, agrees to Rx. Pt. states she has made a lot of progress and is happy to be going home tomorrow. Pain Location: No Pain Reported Section J - Health Conditions 1. Rarely or not at all 2. Occasionally 3. Frequently 4. Almost constantly 8. Unable to answer Pain Effect on Sleep: 1 Pain Interference with Therapy: 1 Pain Interference w/Day-to-Day: 1 Mental Status Patient Orientation: Normal For Age Transfers SCALE: Activities may be completed with or without assistive devices. 5-Wfhayginti-tseubze completes the activity by him/herself with no assistance from a helper. 5-Set-up or Clean-up Assistance-helper sets up or cleans up; patient completes activity. [place] assists only prior to or following the activity. 4-Supervision or Touching Assistance-helper provides verbal cues and/or touching/steadying and/or contact guard assistance as patient completes activity. Assistance may be provided throughout the activity or intermittently. 3-Partial/Moderate Assistance-helper does LESS THAN HALF the effort. [place] lifts, holds or supports trunk or limbs, but provides less than half the effort. 2-Substantial/Maximal Assistance-helper does MORE THAN HALF the effort. [place] lifts or holds trunk or limbs and provides more than half the effort. 0-Efcczkegm-kcaian does ALL the effort. Patient does none of the effort to complete the activity. Or, the assistance of 2 or more helpers is required for the patient to complete the activity. If activity was not attempted, code reason: 7-Patient Refused. 9-Not Applicable-not attempted and the patient did not perform the activity before the current illness, exacerbation or injury. 10-Not Attempted due to Environmental Limitations-(lack of equipment, weather restraints, etc.). 88-Not Attempted due to Medical Conditions or Safety Concerns. Roll Left & Right (QC): 6 Sit to Lying (QC): 6 Lying to Sitting/Side of Bed(Q: 6 Sit to Stand (QC): 6 Chair/Wnb-fo-Qocxm Xfer(QC): 6 Toilet Transfer (QC): 6 Weight Bearing Full Weight Bearing Full Weight Bearing Gait Training Does the Patient Walk?: Yes Walk 10 feet (QC): 6 Walk 50 ft with 2 Turns(QC): 6 Walk 150 ft (QC): 6 Gait Persons Needed: 0 Gait Assistive Device: FWW no LOB, good safe use of AD observed Exercises Supine Ex: Bridging, Ankle pumps, Quad Set, Rolling, Glut sets, Lower trunk rotation, Heel Slides, Short Arc Quads, Scooting, Straight leg raise, Hip abd/add Supine Reps: 15 Seated Therapy Exercises: Ankle pumps, Sit to stand, Long arc quads, Hip flexion, Hip abd/add Seated Reps: 15 NuStep Minutes: 13 NuStep Workload: 2 Treatments TRFs, gait, therex Assessment Current Status: Good Progress meets goals PT Short Term Goals Short Term Goals Time Frame: May 01, 2022 Roll Left & Right: 4 Sit to lyin (Lauren) Lying to sitting on side of be: 3 (Lauren) Sit to stand: 3 (Coleman) Walk 10 feet: 4 (CGA) Walk 50 feet with two turns: 4 (CGA) PT Gas Appliance Mechanic Goals Care Home Goals PT Care Home Goals Time Frame: May 08, 2022 Roll Left & Right (QC): 4 (SBA) Sit to Lying (QC): 4 (SBA) Lying-Sitting on Side/Bed(QC): 4 (SBA) Sit to Stand (QC): 4 (SBA) Chair/Exd-go-Lcopk Xfer(QC): 4 (SBA) Toilet Transfer (QC): 4 (SBA) Car Transfer (QC): 4 (SBA) Does the Patient Walk: Yes Walk 10 feet (QC): 4 (SBA) Walk 50ft with 2 Turns (QC): 4 (SBA) Walk 150 ft (QC): 4 (SBA) Walking 10ft on Uneven Surface: 4 (SBA) 1 Step (curb) (QC): 4 (CGA) 4 Steps (QC): 88 12 Steps (QC): 88 Picking up an Object (QC): 4 (SBA using polymerization helper) Wheel 50 feet with 2 turns (QC: 9 Wheel 150 feet: 9 PT Plan Treatment/Plan Treatment Plan: Continue Plan of Care Treatment Plan: Bed Mobility, Education, Functional Activity Pauline, Functional Strength, Group Therapy, Gait, Safety, Therapeutic Exercise, Transfers Treatment Duration: May 08, 2022 Frequency: At least 5 of 7 days/Wk (IRF) Estimated Hrs Per Day: 1.5 hours per day Patient and/or Family Agrees t: Yes Safety Risks/Education Patient Education: Gait Training, Transfer Techniques, Correct Positioning, Disease Process, Safety Issues Teaching Recipient: Patient Teaching Methods: Demonstration, Discussion Response to Teaching: Verbalize Understanding, Return Demonstration, Reinfor cement Needed Time Time In: 800 Time Out: 915 DATE: May 04, 2022 Total Billed Treatment Time: 75 Total Billed Treatment 1,EX25m,GT35m,FA15m REJI WHITE APPOINTMENT SPECIALIST May 04, 2022 09:04
--- NOTE | 2022-05-04 10:16 | Occupational Ther Daily Note ---
OT Current Status-Daily Note Subjective Pt up in recliner, agreeable to OT tx. Pt feels ready to discharge home. ADL-Treatment Therapy Code Descriptions/Definitions Functional [place] Measure: 0=Not Assessed/NA 4=Minimal Assistance 1=Total Assistance 5=Supervision or Setup 2=Maximal Assistance 6=Modified [place] 3=Moderate Assistance 7=Complete IndependenceSCALE: Activities may be completed with or without assistive devices. 8-Utgwrfulng-qwyprfd completes the activity by him/herself with no assistance from a helper. 5-Set-up or Clean-up Assistance-helper sets up or cleans up; patient completes activity. [place] assists only prior to or following the activity. 4-Supervision or Touching Assistance-helper provides verbal cues and/or touching/steadying and/or contact guard assistance as patient completes activity. Assistance may be provided throughout the activity or intermittently. 3-Partial/Moderate Assistance-helper does LESS THAN HALF the effort. [place] lifts, holds or supports trunk or limbs, but provides less than half the effort. 2-Substantial/Maximal Assistance-helper does MORE THAN HALF the effort. [place] lifts or holds trunk or limbs and provides more than half the effort. 4-Uvetgdfvp-mktvhd does ALL the effort. Patient does none of the effort to complete the activity. Or, the assistance of 2 or more helpers is required for the patient to complete the activity. If activity was not attempted, code reason: 7-Patient Refused. 9-Not Applicable-not attempted and the patient did not perform the activity before the current illness, exacerbation or injury. 10-Not Attempted due to Environmental Limitations-(lack of equipment, weather restraints, etc.). 88-Not Attempted due to Medical Conditions or Safety Concerns. Toileting Hygiene (QC): 6 Toilet Transfer (QC): 6 Other Treatment Pt up in recliner, used FWW to transfer into bathroom and onto toilet. Pt completed toileting independently, then used FWW to perform functional mobility to therapy gym independently. OT tx focused on increasing BUE strength and activity tolerance. Pt completed arm bike x15 mins, 15 Watt resistance, 2 rest breaks. Pt located and removed beads from moderate resistance (green) theraput ty, able to locate all beads without cues. Pt completed UE reaching task, placing 1" pegs into foam pegboard, alternating hands, 1 lb wrist weights BUEs. Pt able to complete x100 pegs. Pt used FWW to return to room independently, transferring to recliner. Post tx, pt in recliner, call light in reach and all needs met. Education OT Patient Education: Correct positioning, Energy conservation, Exercise program, Modified ADL techniques, Progress toward Goal/Update tx plan, Purpose of tx/functional activities, Rehab process Teaching Recipient: Patient Teaching Methods: Discussion Response to Teaching: Verbalize Understanding OT Short Term Goals Short Term Goals Time Frame: May 10, 2022 Toileting hygiene: 3 Upper body dressin Lower body dressin Putting on/taking off footwear: 3 OT Director Electrical Engineering Goals [facility] Goals Time Frame: May 19, 2022 Acute change in mental status: 0 Inattention: 0 Disorganized thinkin Altered level of consciousness: 0 Eating (QC): 6 (met) Oral Hygiene (QC): 6 (met) Toileting Hygiene (QC): 6 (met) Shower/Bathe Self (QC): 4 (met) Upper Body Dressing (QC): 5 (met) Lower Body Dressing (QC): 4 (met) On/Off Footwear (QC): 4 (met) Additional Goals: 1-Demonstrate ADL Tasks, 2-Verbalize Understanding, 3-ImproveStrength/Pauline 1=Demonstrate adherence to instructed precautions during ADL tasks. 2=Patient will verbalize/demonstrate understanding of assistive devices/modifications for ADL. 3=Patient will improve strength/tolerance for activity to enable patient to per form ADL's. OT Education/Plan Problem List/Assessment Assessment: Decreased Activ Tolerance, Decreased UE Strength, Impaired I ADL's Discharge Recommendations Plan/Recommendations: Continue POC Treatment Plan/Plan of Care Patient would benefit from OT for education, treatment and training to promote independence in ADL's, mobility, safety and/or upper extremity function for ADL's. Plan of Care: ADL Retraining, Functional Mobility, Group Exercise/Act as Ind, UE Funct Exercise/Act Treatment Duration: May 19, 2022 Frequency: At least 5 of 7 days/Wk (IRF) Estimated Hrs Per Day: 1.5 hours per day Agreement: Yes Rehab Potential: Good Time Start Time: 10:00 Stop Time: 11:00 DATE: May 04, 2022 Total Time Billed (hr/min): 60 Billed Treatment Time 1, ADL (15'), EX (15'), FA 2 (30') KIKO PANG OT May 04, 2022 10:16
--- NOTE | 2022-05-04 14:15 | Occupational Ther Daily Note ---
OT Current Status-Daily Note Subjective Pt in recliner, present. Pt and verbalize they feel comfortable with pt to discharge home tomorrow. Mental Status/Objective Patient Orientation: Normal For Age ADL-Treatment Therapy Code Descriptions/Definitions Functional [place] Measure: 0=Not Assessed/NA 4=Minimal Assistance 1=Total Assistance 5=Supervision or Setup 2=Maximal Assistance 6=Modified [place] 3=Moderate Assistance 7=Complete IndependenceSCALE: Activities may be completed with or without assistive devices. 0-Pmpmixddwi-fukhrlt completes the activity by him/herself with no assistance from a helper. 5-Set-up or Clean-up Assistance-helper sets up or cleans up; patient completes activity. [place] assists only prior to or following the activity. 4-Supervision or Touching Assistance-helper provides verbal cues and/or touching/steadying and/or contact guard assistance as patient completes activity. Assistance may be provided throughout the activity or intermittently. 3-Partial/Moderate Assistance-helper does LESS THAN HALF the effort. [place] lifts, holds or supports trunk or limbs, but provides less than half the effort. 2-Substantial/Maximal Assistance-helper does MORE THAN HALF the effort. [place] lifts or holds trunk or limbs and provides more than half the effort. 3-Gzpxbiblu-fhuvgv does ALL the effort. Patient does none of the effort to complete the activity. Or, the assistance of 2 or more helpers is required for the patient to complete the activity. If activity was not attempted, code reason: 7-Patient Refused. 9-Not Applicable-not attempted and the patient did not perform the activity before the current illness, exacerbation or injury. 10-Not Attempted due to Environmental Limitations-(lack of equipment, weather restraints, etc.). 88-Not Attempted due to Medical Conditions or Safety Concerns. Other Treatment Pt in recliner. OT educated pt on UE strengthening HEP with moderate resistance (red) theraband. Pt completed x10 reps each BUE 5/5 exercises. Pt provided with printed HEP and theraband to continue strengthening at home. Post tx, pt in recliner, call light in reach and all needs met. OT Short Term Goals Short Term Goals Time Frame: May 10, 2022 Toileting hygiene: 3 Upper body dressin Lower body dressin Putting on/taking off footwear: 3 OT [facility] Goals Sourcing Specialist Goals Time Frame: May 19, 2022 Acute change in mental status: 0 Inattention: 0 Disorganized thinkin Altered level of consciousness: 0 Eating (QC): 6 (met) Oral Hygiene (QC): 6 (met) Toileting Hygiene (QC): 6 (met) Shower/Bathe Self (QC): 4 (met) Upper Body Dressing (QC): 5 (met) Lower Body Dressing (QC): 4 (met) On/Off Footwear (QC): 4 (met) Additional Goals: 1-Demonstrate ADL Tasks, 2-Verbalize Understanding, 3- ImproveStrength/Pauline 1=Demonstrate adherence to instructed precautions during ADL tasks. 2=Patient will verbalize/demonstrate understanding of assistive devices/modifications for ADL. 3=Patient will improve strength/tolerance for activity to enable patient to perform ADL's. OT Education/Plan Problem List/Assessment Assessment: Decreased Activ Tolerance, Decreased UE Strength, Impaired I ADL's Discharge Recommendations Plan/Recommendations: Continue POC Treatment Plan/Plan of Care Patient would benefit from OT for education, treatment and training to promote independence in ADL's, mobility, safety and/or upper extremity function for ADL's. Plan of Care: ADL Retraining, Functional Mobility, Group Exercise/Act as Ind, UE Funct Exercise/Act Treatment Duration: May 19, 2022 Frequency: At least 5 of 7 days/Wk (IRF) Estimated Hrs Per Day: 1.5 hours per day Agreement: Yes Rehab Potential: Good Time Start Time: 13:25 Stop Time: 13:40 DATE: May 04, 2022 Total Time Billed (hr/min): 15 Billed Treatment Time 1, EX KIKO PANG OT May 04, 2022 14:15
[2022-05-04 19:56] VITALS: BP 128/86
[2022-05-04] MEDS: ACETAMINOPHEN 325 MG TABLET PO PRN (20:05)
[2022-05-05] MEDS ORDERED: PHEN-826 PO (05:22)
[2022-05-05] MEDS ORDERED: OXYB5TAB13 PO (05:22)
[2022-05-05] MEDS ORDERED: ESTR42.52 VG (05:22)
--- NOTE | 2022-05-05 05:23 | D/C HH Face to Face Order ---
D/C Face to Face Orders Reconcile Patient Problems Problems Reviewed?: Yes Instructions for Patient Via [facility], Patient Instructions/FollowUp: Dr Benitez as scheduled Physician to follow Patient: Emmanuel Discharge Diet for Home: No Restrictions Patient Problems: Debility Patient Data-Allergies,Ht & Wt Patient Allergies: Coded Allergies: No Known Drug Allergies (Verified , 04/06/22) Height (Feet): 5 Height (Inches): 4.00 Weight (Pounds): 235 Weight (Ounces): 2.0 Home Health Need/Face to Face Date of Face to Face: May 05, 2022 Clinical Findings: Generalized weakness and fatigue, Instability, Muscle weakness I have seen Pt uazw-uk-[id number]: Yes Discharged To: Home Diagnosis/Conditions: Debility Patient is Homebound due to: Muscle weakness Homebound Status Due to the above stated illness, injury or surgical procedure (medical condition or diagnosis) and associated clinical findings, the patient is ho mebound because of his/her inability to leave home except with aid of a supportive device and/or person AND leaving the home requires a considerable and taxing effort or is medically contraindicated. Pt req the following assistanc: Walker Home Health Nursing Orders Home Health Services Order: Nursing Services, Research Administrator-Evaluate & Treat, Physical Therapy-Evaluate & Treat Home Health Infusion Therapy Line Start Date: Apr 24, 2022 Certify Stmt I certify that this patient is under my care and that I, a nurse practitioner or a physician; a campaign assistant working with me, had a face to face encounter that - meets the physician face to face encounter requirements with this patient as dated. VIOLA BENITEZ DO May 05, 2022 05:23
--- NOTE | 2022-05-05 05:24 | Discharge Summary ---
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 Anemia severe and symptomatic requiring iron infusions in the pasthemoglobin stable today Recent GI bleed 5 weeks ago requiring transfusions Fatigue Afib chronic Diastolic HF Hypothyroidism HTN HLD Hx DVT right leg recently received Lovenox bridge prior to surgery then returned to OAC Chronic back pain Neuropathy Gout OAB acute and severe starting Oxybutynin Plan: IV abx cefepime to maintain Hep-Lock IV fluid Monitor hemoglobin and transfuse as needed OAC Supportive care Pain control Incentive spirometer Ambulate DC catheter Inpatient rehab 04/25/2022: Maintain antibiotics Supportive care 04/26/2022: Complete antibiotics per protocol 04/27/2022: Supportive care Monitor closely 04/28/2022: Recheck urine 04/29/2022: Pyridium for dysuria 04/30/2022: Supportive care 05/01/2022: Oxybutynin 05/02/2022: Oxybutynin Pyridium 05/03/2022: OAB management 05/04/2022: Monitor closely DC tomorrow (1) Pseudomonas urinary tract infection (2) Myopathy (3) Dehydration (4) Weakness Status: Acute (5) Symptomatic anemia Status: Acute (6) Anticoagulant long-term use Status: Chronic (7) Hypertension Status: Chronic (8) DVT (deep venous thrombosis) Status: Acute (9) Spinal stenosis Status: Chronic (10) Hypothyroidism Status: Chronic (11) Gout Status: Chronic Discharge Summary Discharge Physical Examination Allergies: Coded Allergies: No Known Drug Allergies (Verified , 04/06/22) Vitals & I&Os Vital Signs Date Time Temp Pulse Resp B/P (MAP) Pulse Ox O2 Delivery O2 Flow Rate FiO2 05/05/22 09:10 36.8 68 18 129/88 96 Room Air General Appearance: Alert, Oriented X3, Cooperative Respiratory: Clear to Auscultation Cardiovascular: Regular Rate Psych/Mental Status: Mental Status NL Hospital Course Was the Problem List Reviewed?: Yes Lengthy hospital course after she was admitted for critical illness myopathy. Patient required close monitoring and completion of cefepime for Pseudomonas UTI. Hemoglobin remained stable. Bowel function returned back to normal. She did have an issue with overactive bladder improved with Pyridium and the addition of oxybutynin. Labs remained stable blood pressure remained stable and she was discharged in improved condition with home health. Labs (last 24 hrs) Laboratory Tests 04/25/22 06:10: White Blood Count 4.2L, Red Blood Count 3.43L, Hemoglobin 9.7L, Hematocrit 31L, Mean Corpuscular Volume 92, Mean Corpuscular Hemoglobin 28, Mean Corpuscular Hemoglobin Concent 31L, Red Cell Distribution Width 25.8H, Platelet Count 307, Mean Platelet Volume 10.0, Immature Granulocyte % (Auto) 1, Neutrophils (%) (Auto) 46, Lymphocytes (%) (Auto) 37, Monocytes (%) (Auto) 13H, Eosinophils (%) (Auto) 3, Basophils (%) (Auto) 1, Neutrophils # (Auto) 1.9, Lymphocytes # (Auto) 1.6, Monocytes # (Auto) 0.5, Eosinophils # (Auto) 0.1, Basophils # (Auto) 0.0, Immature Granulocyte # (Auto) 0.0, Sodium Level 135, Potassium Level 4.0, Chloride Level 104, Carbon Dioxide Level 21, Anion Gap 10, Blood Urea Nitrogen 14, Creatinine 0.78, Estimat Glomerular Filtration Rate 74, BUN/Creatinine Ratio 18, Glucose Level 94, Calcium Level 8.4L, Corrected Calcium 9.3, Total Bilirubin 0.3, Aspartate Amino Transf (AST/SGOT) 131H, Alanine Aminotransferase (ALT/SGPT) 71H, Alkaline Phosphatase 71, Total Protein 5.8L, Albumin 2.9L 04/28/22 11:20: Urine Color YELLOW, Urine Clarity CLEAR, Urine pH 6.5, Urine Specific [place] 1.025H, Urine Protein 1+H, Urine Glucose (UA) NEGATIVE, Urine Ketones TRACEH, Urine Nitrite NEGATIVE, Urine Bilirubin 1+H, Urine Urobilinogen 0.2, Urine Leukocyte Esterase NEGATIVE, Urine RBC (Auto) NEGATIVE, Urine RBC RARE, Urine WBC RARE, Urine Squamous Epithelial Cells 0-2, Urine Crystals NONE, Urine Bacteria TRACE, Urine Casts NONE, Urine Mucus SMALLH, Urine Culture Indicated NO 05/01/22 06:30: White Blood Count 5.4, Red Blood Count 3.88, Hemoglobin 11.1L, Hematocrit 36, Mean Corpuscular Volume 92, Mean Corpuscular Hemoglobin 29, Mean Corpuscular Hemoglobin Concent 31L, Red Cell Distribution Width 25.3H, Platelet Count 335, Mean Platelet Volume 10.0, Immature Granulocyte % (Auto) 0, Neutrophils (%) (Auto) 45, Lymphocytes (%) (Auto) 40, Monocytes (%) (Auto) 10, Eosinophils (%) (Auto) 4, Basophils (%) (Auto) 1, Neutrophils # (Auto) 2.4, Lymphocytes # (Auto) 2.1, Monocytes # (Auto) 0.6, Eosinophils # (Auto) 0.2, Basophils # (Auto) 0.0, Immature Granulocyte # (Auto) 0.0, Sodium Level 139, Potassium Level 3.8, Chlor yina Level 107, Carbon Dioxide Level 24, Anion Gap 8, Blood Urea Nitrogen 11, Creatinine 0.80, Estimat Glomerular Filtration Rate 72, BUN/Creatinine Ratio 14, Glucose Level 102, Calcium Level 9.3, Corrected Calcium 9.7, Total Bilirubin 0.4, Aspartate Amino Transf (AST/SGOT) 74H, Alanine Aminotransferase (ALT/SGPT) 49, Alkaline Phosphatase 75, Total Protein 6.5, Albumin 3.5 Pending Labs Laboratory Tests 04/25/22 06:10: White Blood Count 4.2, Red Blood Count 3.43, Hemoglobin 9.7, Hematocrit 31, Mean Corpuscular Volume 92, Mean Corpuscular Hemoglobin 28, Mean Corpuscular H emoglobin Concent 31, Red Cell Distribution Width 25.8, Platelet Count 307, Mean Platelet Volume 10.0, Immature Granulocyte % (Auto) 1, Neutrophils (%) (Auto) 46, Lymphocytes (%) (Auto) 37, Monocytes (%) (Auto) 13, Eosinophils (%) (Auto) 3, Basophils (%) (Auto) 1, Neutrophils # (Auto) 1.9, Lymphocytes # (Auto) 1.6, Monocytes # (Auto) 0.5, Eosinophils # (Auto) 0.1, Basophils # (Auto) 0.0, Immature Granulocyte # (Auto) 0.0, Sodium Level 135, Potassium Level 4.0, Chloride Level 104, Carbon Dioxide Level 21, Anion Gap 10, Blood Urea Nitrogen 14, Creatinine 0.78, Estimat Glomerular Filtration Rate 74, BUN/Creatinine Ratio 18, Glucose Level 94, Calcium Level 8.4, Corrected Calcium 9.3, Total Bilirubin 0.3, Aspartate Amino Transf (AST/SGOT) 131, Alanine Aminotransferase (ALT/SGPT) 71, Alkaline Phosphatase 71, Total Protein 5.8, Albumin 2.9 04/28/22 11:20: Urine Color YELLOW, Urine Clarity CLEAR, Urine pH 6.5, Urine Specific [place] 1.025, Urine Protein 1+, Urine Glucose (UA) NEGATIVE, Urine Ketones TRACE, Urine Nitrite NEGATIVE, Urine Bilirubin 1+, Urine Urobilinogen 0.2, Urine Leukocyte Esterase NEGATIVE, Urine RBC (Auto) NEGATIVE, Urine RBC RARE, Urine WBC RARE, Urine Squamous Epithelial Cells 0-2, Urine Crystals NONE, Urine Bacteria TRACE, Urine Casts NONE, Urine Mucus SMALL, Urine Culture Indicated NO 05/01/22 06:30: White Blood Count 5.4, Red Blood Count 3.88, Hemoglobin 11.1, Hematocrit 36, Mean Corpuscular Volume 92, Mean Corpuscular Hemoglobin 29, Mean Corpuscular Hemoglobin Concent 31, Red Cell Distribution Width 25.3, Platelet Count 335, Mean Platelet Volume 10.0, Immature Granulocyte % (Auto) 0, Neutrophils (%) (Auto) 45, Lymphocytes (%) (Auto) 40, Monocytes (%) (Auto) 10, Eosinophils (%) (Auto) 4, Basophils (%) (Auto) 1, Neutrophils # (Auto) 2.4, Lymphocytes # (Auto) 2.1, Monocytes # (Auto) 0.6, Eosinophils # (Auto) 0.2, Basophils # (Auto) 0.0, Immature Granulocyte # (Auto) 0.0, Sodium Level 139, Potassium Level 3.8, Chloride Level 107, Carbon Dioxide Level 24, Anion Gap 8, Blood Urea Nitrogen 11, Creatinine 0.80, Estimat Glomerular Filtration Rate 72, BUN/Creatinine Ratio 14, Glucose Level 102, Calcium Level 9.3, Corrected Calcium 9.7, Total Bilirubin 0.4, Aspartate Amino Transf (AST/SGOT) 74, Alanine Aminotransferase (ALT/SGPT) 49, Alkaline Phosphatase 75, Total Protein 6.5, Albumin 3.5 Discharge Home Medications: Active Scripts Active Oxybutynin Chloride 5 Mg Tablet 5 Mg PO BID Phenazopyridine HCl 100 Mg Tablet 100 Mg PO TIDPC Estrace Cream (Estradiol) 0.01 % Cream.appl 0 Gm VG DAILY daily Eliquis (Apixaban) 5 Mg Tablet 5 Mg PO BID 365 Days Vitamin B-12 (Cyanocobalamin (Vitamin B-12)) 1,000 Mcg Tablet 1,000 Mcg PO DAILY@0700 Pantoprazole Sodium 40 Mg Tablet.dr 40 Mg PO DAILY@0700 Reported Preservision Areds Softgel (Vit A/C/E/Zinc/Co) 14,320-226 Capsule 1 Cap PO DAILY Diltiazem 24Hr ER (Diltiazem HCl) 120 Mg Cap.er.24h 120 Mg PO DAILY Vitamin D3 (Cholecalciferol (Vitamin D3)) 25 Mcg Capsule 25 Mcg PO DAILY Coq-10 (Ubidecarenone) 100 Mg Capsule 100 Mg PO DAILY Levothyroxine Sodium 75 Mcg Tablet 75 Mcg PO DAILY Allopurinol 100 Mg Tablet 100 Mg PO DAILY Furosemide 20 Mg Tablet 20 Mg PO DAILY Potassium Chloride 10 Meq Capsule.er 10 Meq PO DAILY Instructions to patient/family Please see electronic discharge instructions given to patient. Diagnosis/Problems Diagnosis/Problems (1) Pseudomonas urinary tract infection (2) Myopathy (3) Dehydration (4) Weakness Status: Acute (5) Symptomatic anemia Status: Acute (6) Anticoagulant long-term use Status: Chronic (7) Hypertension Status: Chronic (8) DVT (deep venous thrombosis) Status: Acute (9) Spinal stenosis Status: Chronic (10) Hypothyroidism Status: Chronic (11) Gout Status: Chronic VIOLA SPEARS DO May 05, 2022 05:24
[2022-05-05] MEDS: CATHETER FLUSH 10 ML SYR IVP SCH (06:15)
[2022-05-05] MEDS: LEVOTHYROXINE 75 MCG (LEVOTHROID) TABLET PO SCH (06:15)
[2022-05-05] MEDS: PANTOPRAZOLE 40 MG (PROTONIX) TAB PO SCH (06:52)
[2022-05-05] MEDS: KCL 20 MEQ TAB (K-DUR) PO SCH (06:52)
[2022-05-05] MEDS: CYANOCOBALAMIN 1,000 MCG (VITAMIN B-12) TABLET PO SCH (06:52)
[2022-05-05 07:56] VITALS: BP 129/83
[2022-05-05] MEDS: ESTRADIOL VAGINAL CREAM 42.5 GM (ESTRACE) VG SCH (08:06)
[2022-05-05] MEDS: ALLOPURINOL 100 MG (ZYLOPRIM) TAB PO SCH (08:06)
[2022-05-05] MEDS: DOCUSATE SODIUM 100 MG (COLACE) CAP PO SCH (08:06)
[2022-05-05] MEDS: dilTIAZem120 MG (CARDIZEM CD) CAP PO SCH (08:06)
[2022-05-05] MEDS: PHENAZOPYRIDINE 100 MG (PYRIDIUM) TABLET PO SCH (08:06)
[2022-05-05] MEDS: APIXABAN 5 MG (ELIQUIS) TABLET PO SCH (08:06)
[2022-05-05] MEDS: OXYBUTYNIN (DITROPAN) 5 MG TAB PO SCH (08:06)
--- NOTE | 2022-05-05 08:54 | Therapy Team Discharge Summary ---
Therapy Discharge Summary Discharge Recommendations Date of Discharge Physical Therapy Roll Left to Right (QC): 6 Sit to Lying (QC): 6 Lying to Sitting/Side of Bed(Q: 6 Sit to Stand (QC): 6 Chair/Tel-xr-Slikm Xfer(QC): 6 Toilet Transfer (QC): 6 Car Transfer (QC): 6 Does the Patient Walk: Yes Walk 10 feet (QC): 6 Walk 50 ft with 2 Turns(QC): 6 Walk 150 ft (QC): 6 Walking 10ft on uneven surface: 6 Distance: 5'x4 Gait Assistive Device: FWW Does the Pt Use a Wheelchair: No Wheel 50 ft with 2 turns (QC): 5 Wheel 150 ft (QC): 5 Type of Wheelchair: Manual #of Steps: 4 1 Step (curb) (QC): 5 4 Steps (QC): 4 12 Steps (QC): 88 Balance Sitting Static: Normal Balance Sitting Dynamic: Normal Balance-Standing Static: Fair Picking up an Object (QC): 6 Occupational Therapy Pt admitted to ARU with disuse myopathy. At [facility], pt was independent with most ADLs (supervision with showering), and supervision with FWW. Upon initial evaluation, pt required set up with eating, SBA oral care, mod A showering, min A UE dressing, and max A with LE Dressing, footwear and toileting. OT tx focused on increasing BUE Strength and activity tolerance, and increasing safety and independence with ADLs and functional mobility. Pt made good progress towards ADLs, meeting all LTGs. Pt discharging home with spouse, d/c from OT at this time. Decreased Activ Tolerance, Decreased UE Strength, Impaired I ADL's Eating (QC): 6 Oral Hygiene (QC): 6 Shower/Bathe Self (QC): 6 Upper Body Dressing (QC): 6 Lower Body Dressing (QC): 6 On/Off Footwear (QC): 6 Toileting Hygiene (QC): 6 PT Balance Weigher Goals Nursing Home Goals PT Balance Weigher Goals Time Frame: May 08, 2022 Roll Left to Right (QC): 4 (SBA) Sit to Lying (QC): 4 (SBA) Lying-Sitting on Side/Bed(QC): 4 (SBA) Sit to Stand (QC): 4 (SBA) Chair/Tff-lf-Ngkmc Xfer(QC): 4 (SBA) Toilet/Commode Transfer (QC): 4 (SBA) Car Transfer (QC): 4 (SBA) Does the Patient Walk: Yes Walk 10 feet (QC): 4 (SBA) Walk 10ft-Uneven Surface(QC): 4 (SBA) Walk 50ft with 2 Turns (QC): 4 (SBA) Walk 150 ft (QC): 4 (SBA) Wheel 50 feet with 2 turns (QC: 9 Wheel 150 feet: 9 1 Step (curb) (QC): 4 (CGA) 4 Steps (QC): 88 12 Steps (QC): 88 Picking up an Object (QC): 4 (SBA using surfboard designer) OT Balance Weigher Goals Nursing Home Goals Time Frame: May 19, 2022 Acute change in mental status: 0 Inattention: 0 Disorganized thinkin Altered level of consciousness: 0 Eating (QC): 6 (met) Oral Hygiene (QC): 6 (met) Toileting Hygiene (QC): 6 (met) Shower/Bathe Self (QC): 4 (met) Upper Body Dressing (QC): 5 (met) Lower Body Dressing (QC): 4 (met) On/Off Footwear (QC): 4 (met) Additional Goals: 1-Demonstrate ADL Tasks, 2-Verbalize Understanding, 3- ImproveStrength/Pauline 1=Demonstrate adherence to instructed precautions during ADL tasks. 2=Patient will verbalize/demonstrate understanding of assistive devices/modif ications for ADL. 3=Patient will improve strength/tolerance for activity to enable patient to perform ADL's. Speech Nursing Home Goals Balance Weigher Goals 1. The patient will demonstrate improved cognitive linguistic skills for i ncreased safety in the least restrictive environment. Time Frame: Ten Days. KIKO PANG OT May 05, 2022 08:54
[2022-05-05 09:10] VITALS: BP 129/88
--- NOTE | 2022-05-05 11:35 | Therapy Team Discharge Summary ---
Therapy Discharge Summary Discharge Recommendations Date of Discharge May 05, 2022 at 09:10 Physical Therapy Patient came to rehab with disuse myopathy. Upon evaluation patient performs rolling with min assist, supine<-> sit mod assist, sit <-> stand mod assist, transfers CGA, car transfer mod assist, ambulate 5' with a rolling walker with CGA, max assist to push a WC 150, CGA to filler picker an object from the floor using a agricultural services director. Patient has been performing bed mobility and transfer training, balance and endurance training, functional strengthening, stair training, gait training, and education. Patient has made good progress and has met all of her ocean transportation intermediary goals. Now, patient performs rolling and supine <-> sit with independence, sit <-> stand and transfers independent, car transfer independent, ambulates 150' with a rolling walker with independence (including 50' with at least 2 turns of 90 degrees and 10' over an uneven surface), can go up and down 4 steps using 2 handrails with CGA/SBA, and can filler picker an object from the floor with independence. Patient was discharged from this facility today and will be discharged from PT at this time. Roll Left to Right (QC): 6 Sit to Lying (QC): 6 Lying to Sitting/Side of Bed(Q: 6 Sit to Stand (QC): 6 Chair/Crl-md-Rtftw Xfer(QC): 6 Toilet Transfer (QC): 6 Car Transfer (QC): 6 Does the Patient Walk: Yes Walk 10 feet (QC): 6 Walk 50 ft with 2 Turns(QC): 6 Walk 150 ft (QC): 6 Walking 10ft on uneven surface: 6 Distance: 150' Gait Assistive Device: FWW Does the Pt Use a Wheelchair: No Wheel 50 ft with 2 turns (QC): 5 Wheel 150 ft (QC): 5 Type of Wheelchair: Manual #of Steps: 4 1 Step (curb) (QC): 5 4 Steps (QC): 4 12 Steps (QC): 88 Balance Sitting Static: Normal Balance Sitting Dynamic: Normal Balance-Standing Static: Fair Picking up an Object (QC): 6 Occupational Therapy Decreased Activ Tolerance, Decreased UE Strength, Impaired I ADL's Eating (QC): 6 Oral Hygiene (QC): 6 Shower/Bathe Self (QC): 6 Upper Body Dressing (QC): 6 Lower Body Dressing (QC): 6 On/Off Footwear (QC): 6 Toileting Hygiene (QC): 6 PT Shelter Goals Shelter Goals PT Shelter Goals Time Frame: May 08, 2022 Roll Left to Right (QC): 4 (SBA) Sit to Lying (QC): 4 (SBA) Lying-Sitting on Side/Bed(QC): 4 (SBA) Sit to Stand (QC): 4 (SBA) Chair/Vcn-ur-Menuc Xfer(QC): 4 (SBA) Toilet/Commode Transfer (QC): 4 (SBA) Car Transfer (QC): 4 (SBA) Does the Patient Walk: Yes Walk 10 feet (QC): 4 (SBA) Walk 10ft-Uneven Surface(QC): 4 (SBA) Walk 50ft with 2 Turns (QC): 4 (SBA) Walk 150 ft (QC): 4 (SBA) Wheel 50 feet with 2 turns (QC: 9 Wheel 150 feet: 9 1 Step (curb) (QC): 4 (CGA) 4 Steps (QC): 88 12 Steps (QC): 88 Picking up an Object (QC): 4 (SBA using agricultural services director) OT Shelter Goals [employer] Project Manager Goals Time Frame: May 19, 2022 Acute change in mental status: 0 Inattention: 0 Disorganized thinkin Altered level of consciousness: 0 Eating (QC): 6 (met) Oral Hygiene (QC): 6 (met) Toileting Hygiene (QC): 6 (met) Shower/Bathe Self (QC): 4 (met) Upper Body Dressing (QC): 5 (met) Lower Body Dressing (QC): 4 (met) On/Off Footwear (QC): 4 (met) Additional Goals: 1-Demonstrate ADL Tasks, 2-Verbalize Understanding, 3-ImproveStrength/Pauline 1=Demonstrate adherence to instructed precautions during ADL tasks. 2=Patient will verbalize/demonstrate understanding of assistive devices/modifications for ADL. 3=Patient will improve strength/tolerance for activity to enable patient to perform ADL's. Speech Shelter Goals [employer] Project Manager Goals 1. The patient will demonstrate improved cognitive linguistic skills for increased safety in the least restrictive environment. Time Frame: Ten Days. ANDREY MCCLURE PT May 05, 2022 11:35
== END 2022-05-05 09:10 | disposition home health service (06) | DRG 92 ==
PROVIDERS: ADMIT Internal Medicine; ATTEND Internal Medicine
DX: G72.81 Critical illness myopathy (principal); I48.20 Chronic atrial fibrillation, unspecified; N39.0 Urinary tract infection, site not specified; I50.30 Unspecified diastolic (congestive) heart failure; T81.41XD Infection following a procedure, superficial incisional surgical site, subsequent encounter; D64.9 Anemia, unspecified; R53.1 Weakness; R53.83 Other fatigue; I11.0 Hypertensive heart disease with heart failure; E03.9 Hypothyroidism, unspecified; E86.0 Dehydration; N32.81 Overactive bladder; R35.0 Frequency of micturition; E78.00 Pure hypercholesterolemia, unspecified; G62.9 Polyneuropathy, unspecified; M10.9 Gout, unspecified; I25.10 Atherosclerotic heart disease of native coronary artery without angina pectoris; K21.9 Gastro-esophageal reflux disease without esophagitis; M19.91 Primary osteoarthritis, unspecified site; H91.90 Unspecified hearing loss, unspecified ear; K59.00 Constipation, unspecified; F41.9 Anxiety disorder, unspecified; F32.A Depression, unspecified; B96.5 Pseudomonas (aeruginosa) (mallei) (pseudomallei) as the cause of diseases classified elsewhere; Z79.01 Long term (current) use of anticoagulants; Z91.81 History of falling; Z85.038 Personal history of other malignant neoplasm of large intestine; Z86.718 Personal history of other venous thrombosis and embolism; Z85.828 Personal history of other malignant neoplasm of skin; Z90.49 Acquired absence of other specified parts of digestive tract
CPT/HCPCS: 36410; 36415; 76937; 80053; 81000; 85025; 94760

== ENCOUNTER → 2022-05-30 | Outpatient (RCR) | payer MEDICARE, OTHER ==
[~2022-05-30] MED LIST changes: +ESTR42.52 VG; +OXYB5TAB13 PO; +PHEN-826 PO; -POTA10CA43 PO; +POTA10CA44 PO
== END ==
LOC: ONC 10:53
PROVIDERS: ATTEND Internal Medicine Hematology & Oncology
DX: C18.9 Malignant neoplasm of colon, unspecified (principal); I11.9 Hypertensive heart disease without heart failure; E66.9 Obesity, unspecified
CPT/HCPCS: 99204